=== PATIENT | male | born 1945 | race Caucasian/White ===

== ENCOUNTER 2021-12-31 12:03 | Emergency (ER) | payer OTHER, SELFPAY ==
[2021-12-31] VITALS (33 sets, daily range): BP systolic 127–168; BP diastolic 57–127; PULSE 65–111; RESP 11–29; TEMP 37; O2SAT 84–97
--- OUTSIDE RECORDS SUMMARY | 2021-12-31 12:54 | XMS_ITS | Encounter Summary ---
:1945 Author Organization [facility] [place] [address] Care Team Providers Name Role Phone Estefany Soriano MD Primary Care Provider [phone] Reason for Visit Reason Comments Establish Care XR IN SPLINT RT DISTAL RA D FX DOI 12/23/21 (REDUCED) Consultation (Urgent) - Closed Specialty Diagnoses / Procedures Referred By Contact Refer red To Contact Orthopaedics Diagnoses Right Distal Rad fx Doi 12/23/2021 (reduced) Jacinto Del Rio MD [facility] Orthopaedics 3a [facility] [place] [address] [place] [address] Referral ID Status Reason Start Date Expiration Date Visits Requ ested Visits Authorized [id number] Closed 12/24/2021 12/24/2022 1 1 Encounter Details Date Type Department Care Team Description 12/29/2021 Office Visit Orthopaedics at [facility] Rody Sheridan closed [facility] [address] [place] [address] end of right radius [phone] ORTHOPAEDIC with routine farideh [facility] SURGERY subsequent encounter [place] [id number] Social History Tobacco Use Types Packs/Day Years Used Date Former Smoker Quit: 1976 Smokeless Tobacco: Never Used Alcohol Use Standard Drinks/Week Comments Not Currently 0 (1 standard drink = 0.6 oz pure alcoho l) Sex Assigned at Date Recorded Not on file documented as of this encounter Last Filed Vital Signs Vital Sign Reading Time Taken Comments Blood Pressure 127/75 12/29/2021 2:31 PM EDT Pulse - - Temperature - - Respiratory Rate - - Oxygen Saturation - - Inhaled Oxygen Concentration - - Weight - - Height - - Body Mass Index - - documented in this encounter Progress Notes Jenifer Gomez RN - 12/29/2021 2:20 PM EDT Call out to Dr Soriano's office at the [place], in regards to patients unmanaged gout. reached unidentified vm and requested a call back Rody Sheridan PA - 12/29/2021 2:20 PM EDT PATIENT NAME: Shreyas Jorgensen AGE: 76 y.o. MR#: [id number] DATE OF VISIT: 12/29/2021 DATE OF INJURY/ONSET: 12/23/2021 STAFF: Dr. Chavez CHIEF COMPLAINT: Right wrist fracture HISTORY OF PRESENT ILLNESS: Mr. Jorgensen is a right hand dominant 76 y.o. male who comes into clinictoday for evaluation of the right wrist. He presents today in follow-up after being seen in the emergency department. He injured his right wrist after falling while putting on a jacket. He states he has a history of gout and is currently struggling with multiple other joint pains which he attributes to his gout. He is on allopurinol, but he is wondering if there are other medications he should be taking. He denies having any significant issues with his right wrist prior to this injury. He was found to have a distal radius fracture which was treated with closed reduction and splinting. He is taking T ylenol for pain. Medications and Allergies were reviewed in [facility]D-[facility] PAST MEDICAL HX: Past Medical History: Diagnosis Date ??? Atrial fibrillation ??? Gout ??? History of CVA (cerebrovascular accident) PAST SURGICAL HX: History reviewed. No pertinent surgical history. FAMILY HX: History reviewed. No pertinent family history. SOCIAL HX: Social History Occupational History ??? Not on file Tobacco Use ??? Smoking status: Former Smoker Quit date: 1976 Years since quittin.7 ??? Smokeless tobacco: Never Used Vaping Use ??? Vaping Use: Never used Substance and Sexual Activity ??? Alcohol use: Not Currently ??? Drug use: Never ??? Sexual activity: Not on file Ambulatory aids: 2 canes ROS: Pertinent items are noted in HPI. PHYSICAL EXAM: Mr. Jorgensen is a 76 y.o. male who is in no apparent distress, alert and cooperative. Inspection: Sugar-tong splint remains in place. There is moderate swelling into the fingers. Exposedskin remains intact ROM/Strength: He is able to flex and extend his fingers. There is some limited mobility due to his swelling. Neurovascular: He has intact sensation in his fingertips. Hand is well-perfused DIAGNOSTIC STUDIES: X-rays of the right wrist were personally reviewed. His right distal radius fracture alignment remains stable following his reduction. ASSESSMENT: 1 week following right distal radius fracture PLAN: I reviewed the x-rays with the patient today. His current fracture alignment remains stable. His sugar-tong splint appears to be fitting well. We will continue with immobilization in his sugar-tong splint for an additional 2 weeks. He will contact us if the splint becomes wet, tight or loose, orotherwise uncomfortable. He should continue with Tylenol as needed for pain. He can reach out to hisPCP to discuss management of his gout and we also discussed that we could place a referral to rheumatology if he would like to see a bead preparer instead. I also offered to place a referral for VNA services since he states he is having difficulty ambulating managing at home following his fracture. He feels that he is currently going okay with the help of his family, but if this changes he will contact us. We will schedule follow-up in approximately 2 weeks with x-rays and splint. If his fracture alignment remains stable we would consider transition to a fiberglass cast after his next visit. He will likely need approximately 6 weeks of immobilization total. If there is any loss of reduction we can discuss whether surgical repair would be of benefit. The patient understands to contact us if they have any other questions or concerns. The above documentation was completed using [employer] voice recognition software. documented in this encounter Plan of Treatment Upcoming Encounters Date Type Specialty Care Team Description 01/12/2022 Appointment Radiology Shorty Chavez MD [facility] [address] ORTHOPAEDIC SURG [place], [place] [address] (Wo rk) 01/12/2022 Office Visit Orthopaedics Rody Sheridan PA [facility] DR ORTHOPAEDIC SURG [place], [place] [address] (Wo rk) 01/12/2022 Office Visit Orthopaedics Scheduled Orders Name Type Priority Associated Diagnoses Order S chedule XR Wrist 3 Views Imaging Routine Other closed Expected: 0 12/29/2021 Right extra-articular fracture (Ap proximate), Expires: of distal end of right 06/30 radius with routine healing, subsequent encounter documented as of this encounter Visit Diagnoses Diagnosis Other closed extra-articular fracture of distal end of right radius with routine healing, subsequent encounter documented in this encounter Care Teams Electro Optical Engineer Relationship Specialty Start Date End Date Estefany Soriano MD PCP - General Internal Medicine 12/29/[address] [place] [id number] documented as of this encounter
--- OUTSIDE RECORDS SUMMARY | 2021-12-31 12:54 | XMS_ITS | Continuity of Care Document ---
:1945 Author Organization [facility] Care Team Providers Name Role Phone [facility] Unavailable Unavailable Problems Combined list of problems from Department of Defense and Veterans Affairs facilities. It does not include entries that were removed or entered in error. Problem Status Onset Problem Type Date of Comments Source Date Resolution Solitary nodule of Active 11/23/19 Condition Dec 17, WHITE lung [address] By: BRENDA NORTON Comment: R apical 4mm nodular pleural thickening seen CT scan [facility] 11/2020. Dec 17, 2020 Entered By: BRENDA BARRON Comment: at RTC will obtain smoking history. 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 Feb 22, WHITE (SNOMED CT 833321620) 2006 Ent ered [place] T By: JENNY POSADA Comment: in remission Anemia Inactive 04/24/19 Condition 01/21/2014 Feb 15, DM [address] By: JENNY POSADA Comment: colo 2002, Angiodysplasi a, Intestinal., plus hemorrhoids Dec 19, 2006 Entered By: JENNY GOMES Comment: resume fobt in 2007, fobt neg x 3 08/29 Benign essential Active 04/24/18 Condition WHI TE hypertension (SNOMED [address] 0019984) [facility] Adiposity (SNOMED CT Active Condition WHITE [id number]) [facility] Atrial fibrillation Active Condition WHITE [facility] Cerebral infarction Active Condition WHITE [facility] Depression * Active Condition WHITE (ICD-9-CM 300.4/311.) [facility] Gastroesophageal Active Condition September 07 ITE Reflux Disorder 2003 Entered [place] By: JENNY POSADA Comment: tx rabeprazole Gout Active Condition WHITE [facility] Headaches * (ICD-9-CM Active Condition WHITE 784.0) [facility] Health Maint Active Condition September 06, WHITE [address] [facility] Comment: 08 wants prostate cancer screening q 3 yrs. Nov 11, 2008 Entered By: JENNY GOMES Comment: 10/30 colo, +hemorroids, otherwise clear, next one 10 yrs. Oct 10, 2012 Entered By: JENNY GOMES Comment: 10/04 no AAA Hyperlipidemia Active Condition WHITE (SNOMED CT 65878687) [facility] Impotence Active Condition WHITE [facility] Long-term current use Active Condition WHITE of anticoagulant [place] [facility] Tobacco Use Disorder Inactive Condition 08/30/2013 Jan 22, WHITE [address] By: [facility] Comment: quit 2003 Diagnosis: ICD-10-CM Active Diagnosis ENRRIQUE Z71.89 Other [place] [facility] specified counselingwith Provider Comments: Counseling,Oth Specified Diagnosis: ICD-10-CM Active Diagnosis WHITE Z71.[address] specified [facility] counselingwith Provider Comments: Other specified counseling Diagnosis: ICD-10-CM Active Diagnosis WHITE S62.91XA Unsp [place] fracture of right [facility] wrist and hand, init for clos fxwith Provider Comments: Unspecified Fracture of right Wrist and Hand, Initial Encounter for closed Fracture Diagnosis: ICD-10-CM Active Diagnosis ENRRIQUE M10.9 Gout, [facility] unspecifiedwith Provider Comments: Gout (SCT 69088962) Diagnosis: ICD-10-CM Active Diagnosis ENRRIQUE Z23 Encounter for [facility] immunizationwith Provider Comments: Encounter for immunization (ICD-10-CM Z23.) Diagnosis: ICD-10-CM Active Diagnosis WHITE M79.673 Pain in [place] unspecified footwith [facility] Provider Comments: Pain in unspecified Foot Diagnosis: ICD-10-CM Active Diagnosis ENRRIQUE M10.9 Gout, [facility] unspecifiedwith Provider Comments: Gout (SNOMED CT 31215672) Diagnosis: ICD-10-CM Active Diagnosis WHITE 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.01 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 [place]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) use of [facility] JASPREET anticoagulantswith Provider Comments: Long-term current use of anticoagulant (SCT 629765628) Diagnosis: ICD-10-CM Active Diagnosis WHITE M10.062 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, left kneewith [facility] Provider Comments: Idiopathic Gout, left Knee Diagnosis: ICD-10-CM Active Diagnosis ENRRIQUE M10.9 Gout, [facility] unspecifiedwith Provider Comments: Gout, unspecified Diagnosis: ICD-10-CM Active Diagnosis WHITE I50.9 Heart failure, [place] unspecifiedwith [facility] Provider Comments: Heart Failure, unspecified Diagnosis: ICD-10-CM Active Diagnosis ENRRIQUE Z23 Encounter for [facility] immunizationwith Provider Comments: Encounter for Immunization Diagnosis: ICD-10-CM Active Diagnosis WHITE I48.91 Unspecified R [place] atrial [facility] fibrillationwith Provider Comments: Atrial fibrillation (SCT 69889200) Diagnosis: ICD-10-CM Active Diagnosis ENRRIQUE I48.91 Unspecified V [facility] CLINIC atrial fibrillationwith Provider Comments: Unspecified Atrial Fibrillation Diagnosis: ICD-10-CM Active Diagnosis WHITE I10 Essential [place] (primary) [facility] hypertensionwith Provider Comments: Benign essential hypertension (SCT 9501696) Medications Combined list of outpatient medications from Department of Defense and Veterans Affairs facilities. Medications provided include 1) outpatient medications from the last 15 months, and 2) patient-reported medications. Medication Details Route Status Patient Prescription Prescription Last Ordering Order Source Instructions Expires Number Dispense Provider Date Date ACETAMINOPH TAKE ONE ORAL ACTIVE 02/26/2022 [id number] H ENDERSON 02/25/ ENRRIQUE EN 500MG TABLET 2 -SEGURA,2020 [facility] EVERY SIX HOURS NEEDED FOR PAIN ACETAMINOPH TAKE ONE ORAL DISCONT 02/13/2021 [id number] LIZ 03/15/ DM EN 500MG TABLET INUE 1 JAYY 2020 [place] TAB BY MOUTH [place] EVERY [facility] SIX HOURS NEEDED FOR PAIN ALLOPURINOL TAKE TWO ORAL DISCONT 08/13/2022 [id number] H ENDERSON 08/14/ ENRRIQUE 100MG TAB TABLETS INUED 2 -2021 [facility] EVERY DAY FOR GOUT ALLOPURINOL TAKE ONE ORAL DISCONT 10/11/2021 [id number] H ENDERSON 07/16/ ENRRIQUE 100MG TAB TABLET INUED 2 -SEGURA,2021 [facility] EVERY DAY FOR GOUT ALLOPURINOL TAKE ONE ORAL ACTIVE 09/17/2022 [id number] DESHAWN RSON 09/16/ ENRRIQUE 300MG TAB TABLET 2 -VIVIANA SEGURA 2021 [facility] EVERY DAY FOR GOUT AMLODIPINE TAKE ONE ORAL ACTIVE 04/20/2022 [id number] THAIV EETT 05/23/ WHITE BESYLATE TABLET 2 ALYCE,ZACHARY 2021 RIVER 10MG TAB BY MOUTH G JCT EVERY [facility] DAY FOR BLOOD PRESSURE /HEART, DO NOT TAKE WITH GRAPEFRU IT JUICE AMLODIPINE TAKE ONE ORAL DISCONT 07/31/2021 [id number] S ULDEBI, 08/24/ WHITE BESYLATE TABLET INUE 1 [place] 2020 [place] 10MG TAB BY MOUTH M JCT EVERY [facility] DAY FOR BLOOD PRESSURE /HEART, DO NOT TAKE WITH GRAPEFRU IT JUICE APIXABAN TAKE ONE ORAL ACTIVE 07/09/2022 [id number] Karen ALLEN 08/15/ WHITE 5MG TAB TABLET 2 ENEL L 2021 [place] BY MOUTH J[place] EVERY [facility] TWELVE HOURS TO HELP PREVENT BLOOD CLOTS (ANTICOA GULATION ) APIXABAN TAKE ONE ORAL DISCONT 12/26/2021 [id number] GLENNA VALLEJO 02/15/ ENRRIQUE 5MG TAB TABLET INUED 2 [facility] 2020 [facility] EVERY TWELVE HOURS TO HELP PREVENT BLOOD CLOTS (ANTICOA GULATION ) APIXABAN TAKE ONE ORAL DISCONT 05/09/2021 [id number] BROWN GLENNA 05/08/ WHITE 5MG TAB TABLET INUE 1 [facility] 2020 [place] BY MOUTH [place] EVERY [facility] TWELVE HOURS TO HELP PREVENT BLOOD CLOTS (ANTICOA GULATION ) ASPIRIN TAKE ONE ORAL 10/31/2021 [id number] VOODILON P 11/02/ WHITE 81MG TAB,EC TABLET 2 2020 [place] BY MOUTH JCT EVERY [facility] DAY TO PREVENT STROKE/H EART ATTACK OR FOR PAIN/SWE LLING/IN FLAMMATI ON ATORVASTATI TAKE ONE ORAL ACTIVE 04/20/2022 [id number] T NORMA 05/07/ WHITE N CA 80MG TABLET 2 [place],ZACHARY 2021 [place] TAB BY MOUTH G JCT EVERY [facility] DAY TO LOWER CHOLESTE ROL ATORVASTATI TAKE ONE ORAL DISCONT 10/14/2021 [id number] THAIVEETT 11/02/ WHITE N CA 80MG TABLET INUE 1 ZACHARY MEAD 2020 [place] TAB BY MOUTH G JCT EVERY [facility] DAY TO LOWER CHOLESTE ROL CAPSAICIN APPLY TOPICA ACTIVE WUNDERLIC WHI TE 0.1% SMALL LLY HCRIS 2016 RIVER CREAM,TOP AMOUNT R JCT TOPICALL [facility] Y TWICE DAILY NEEDED CELECOXIB TAKE ONE ORAL DISCONT 10/10/2021 [id number] FLEISH MAN 09/10/ WHITE 100MG CAP CAPSULE INUED 2 ,MARIO 2021 RIVE R BY MOUTH SEJAL JCT TWICE A [facility] DAY FOR ARTHRITI S COLCHICINE TAKE ONE ORAL DISCONT 05/21/2022 [id number] HENDE RSON 05/20/ ENRRIQUE 0.6MG TAB TABLET INUED 2 -SEGURA,VIVIANA 2021 [facility] EVERY DAY FOR GOUT COLCHICINE TAKE ONE ORAL DISCONT 11/20/2021 [id number] VO,AN N P 11/24/ WHITE 0.6MG TAB TABLET INUED 1 2020 [place] BY MOUTH [place] DAILY [facility] FOR GOUT COLCHICINE TAKE ONE ORAL DISCONT 04/28/2021 [id number] SULLI VAN, 04/27/ WHITE 0.6MG TAB TABLET INUE 1 JAYY 2020 [place] BY MOUTH M JCT EVERY [facility] DAY FOR GOUT COLCHICINE TAKE ONE ORAL 11/14/2021 [id number] HENDE RSON 10/15/ ENRRIQUE 0.6MG TAB TABLET 2 -SEGURA,VIVIANA 2021 [facility] EVERY DAY FOR GOUT COLCHICINE TAKE ONE ORAL 10/11/2021 [id number] HENDE RSON 08/14/ ENRRIQUE 0.6MG TAB TABLET 2 -SEGURA,VIVIANA 2021 [facility] EVERY DAY FOR GOUT DICLOFENAC APPLY 2 TOPICA 10/31/2021 [id number] VO ,ODILON P 11/02/ WHITE NA 1% GRAMS TO LLY 1 2020 [place] GEL,TOP UPPER JCT EXTREMIT [facility] IES TOPICALL Y FOUR TIMES DAILY NEEDED FOR PAIN/INF LAMMATIO N. *DO NOT EXCEED 16 GRAMS DAILY TO ANY JOINT OF LOWER EXTREMIT IES. DO NOT EXCEED 8 GRAMS DAILY TO ANY JOINT OF UPPER EXTREMIT IES. DO NOT EXCEED TOTAL DOSE OF 32 GRAMS DAILY OVER ALL JOINTS. FOLIC ACID TAKE ONE ORAL ACTIVE 08/03/2022 [id number] HENDE RSON 08/04/ ENRRIQUE 1MG TAB TABLET 2 -2021 [facility] EVERY DAY VITAMIN/ NUTRITIO N SUPPLEME NT FOLIC ACID TAKE ONE ORAL DISCONT 07/31/2021 [id number] SULDERRICK LEHMAN 08/02/ WHITE 1MG TAB TABLET INUED 2 [place] 2020 [place] BY MOUTH M JCT EVERY [facility] DAY VITAMIN/ NUTRITIO N SUPPLEME NT FUROSEMIDE TAKE ONE ORAL ACTIVE 04/20/2022 [id number] THAIV EETT 04/19/ WHITE 40MG TAB TABLET 2 PRZACHARY 2020 [place] BY MOUTH G JCT TWICE A [facility] DAY TO REMOVE FLUID/CO NTROL BLOOD PRESSURE FUROSEMIDE TAKE ONE ORAL DISCONT 04/28/2021 [id number] SULDERRICK LEHMAN, 04/27/ WHITE 40MG TAB TABLET INUE 1 [place] 2020 [place] BY MOUTH M JCT TWICE A [facility] DAY TO REMOVE FLUID/CO NTROL BLOOD PRESSURE ISOSORBIDE TAKE ONE ORAL ACTIVE 04/20/2022 [id number] THAIV EETT 06/09/ WHITE [facility] R[facility] 30MG TAB,SA BY MOUTH G JCT EVERY [facility] DAY TO PREVENT ANGINA ISOSORBIDE TAKE ONE ORAL DISCONT 03/17/2022 [id number] H ENDERSON 03/21/ ENRRIQUE MONONITRATE TABLET INUE 1 -2020 [facility] 30MG TAB,SA BY MOUTH [facility]INI EVERY DAY TO PREVENT ANGINA ISOSORBIDE TAKE ONE ORAL DISCONT 02/13/2021 [id number] SULLI DOMINIK, 02/12/ WHITE MONONITRATE TABLET INUE 1 JAYY 2019 RIVE R 30MG TAB,SA BY MOUTH M JCT EVERY [facility] DAY TO PREVENT ANGINA METOPROLOL TAKE ONE ORAL ACTIVE 04/20/2022 [id number] THAIV EETT 05/01/ WHITE SUCCINATE TABLET 2 ZACHARY ME[place] 2021 R[place] 200MG BY MOUTH G JCT TAB,SA EVERY [facility] DAY FOR BLOOD PRESSURE /HEART METOPROLOL TAKE ONE ORAL DISCONT 10/14/2021 [id number] T HAIVEETT 11/12/ WHITE SUCCINATE TABLET INUE 1 ZACHARY MEAD 2020 [place] 200MG BY MOUTH G JCT TAB,SA EVERY [facility] DAY FOR BLOOD PRESSURE /HEART OMEPRAZOLE TAKE ONE ORAL ACTIVE 03/17/2022 [id number] HENDE RSON 03/21/ ENRRIQUE 20MG CAP,EC CAPSULE 2 -2020 [facility] TWICE A DAY FOR STOMACH ACID (TAKE HALF-MICHAEL R BEFORE A MEAL(S) OMEPRAZOLE TAKE ONE ORAL DISCONT 02/13/2021 [id number] SULDERRICK LEHMAN, 02/12/ WHITE 20MG CAP,EC CAPSULE INUE 1 JAYY 2019 [place] BY MOUTH M JCT TWICE A [facility] DAY FOR STOMACH ACID (TAKE HALF-MICHAEL R BEFORE A MEAL(S) POTASSIUM TAKE TWO ORAL ACTIVE 04/20/2022 [id number] THAIVE ETT 04/19/ WHITE CHLORIDE TABLETS 2 PRZACHARY 2020 [place] 10MEQ BY MOUTH G JCT TAB,SA EVERY [facility] DAY TO SUPPLEME NT POTASSIU M POTASSIUM TAKE TWO ORAL DISCONT 10/14/2021 [id number] THAIV EETT 12/17/ WHITE CHLORIDE TABLETS INUE 1 ZACHARY MEAD 2020 [place] 10MEQ BY MOUTH G JCT TAB,SA EVERY [facility] DAY TO SUPPLEME NT POTASSIU M PREDNISONE TAKE TWO ORAL DISCONT 11/25/2021 [id number] HENDE RSON 10/26/ ENRRIQUE 20MG TAB TABLETS INUED 2 -2021 [facility] EVERY DAY SHORT COURSE FOR GOUT FLARE ONLY PREDNISONE TAKE TWO ORAL 12/11/2021 [id number] H ENDERSON 11/12/ ENRRIQUE 20MG TAB TABLETS 2 -SEGURA2021 [facility] EVERY DAY SHORT COURSE FOR GOUT FLARE ONLY PREDNISONE TAKE ORAL DISCONT 07/21/2021 [id number] Karen CHASE 06/21/ WHITE 5MG TAB EIGHT INUE 2 ONATHAN B 2021 [place] TABLETS JCT BY MOUTH [facility] DAILY FOR 5 DAYS, THEN TAKE FOUR TABLETS DAILY FOR 2 DAYS, THEN TAKE TWO TABLETS DAILY FOR 2 DAYS, THEN TAKE ONE TABLET DAILY FOR 2 DAYS PREDNISONE TAKE ORAL 07/24/2021 [id number] ANGEL,P E 06/26/ WHITE 5MG TAB TABLETS 2 TER 2021 [place] BY MOUTH RA JCT [facility] DIRECTED : TAKE EIGHT TABLETS BY MOUTH DAILY FOR 5 DAYS, THEN TAKE FOUR TABLETS DAILY FOR 2 DAYS, THEN TAKE TWO TABLETS DAILY FOR 2 DAYS, THEN TAKE ONE TABLET DAILY FOR 2 DAYS TAKE EIGHT TABLETS BY MOUTH DAILY FOR 5 DAYS, THEN TAKE FOUR TABLETS DAILY FOR 2 DAYS, THEN TAKE TWO TABLETS DAILY FOR 2 DAYS, THEN TAKE ONE TABLET DAILY FOR 2 DAYS Immunizations Combined list of available immunizations from the Department of Defense and Veterans Affairs facilities. 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 COVID-19 2 complet MOD; NE WPORT (MODERNA), 2021 ed [id number] [facility] MRNA, LNP-S, ; C RAMSEY PF, 100 MCG/0.5ML 2 DOSE OR 50 MCG/0.25ML DOSE INFLUENZA complet N EWPORT VACCINE, 2020 ed [facility] QUADRIVALENT, CLINIC ADJUVANTED TDAP complet [place] [facility] ed [facility] COVID-19 1 complet ITE (ABIOLA), 2020 ed [place] VECTOR-NR, JCT RS-AD26, PF, V [facility] 0.5 ML INFLUENZA, complet ENRRIQUE INJECTABLE, 2019 ed [facility] QUADRIVALENT, CLINIC PRESERVATIVE FREE INFLUENZA, complet Site: WHITE INJECTABLE, 2018 ed Right RI GURPREET QUADRIVALENT, [place] PRESERVATIVE [facility] FREE ZOSTER 2 complet NEWP ORT RECOMBINANT 2018 ed [place] [facility] PNEUMOCOCCAL complet ENRRIQUE POLYSACCHARID 2018 ed [facility] E PPV23 CLINIC INFLUENZA, complet patien t DM , 2017 ed randomize RIVER INJECTABLE d to JCT either [facility] quadrival ent standard dose or trivalent high dose influenza vaccine ZOSTER 2 complet NEWP ORT RECOMBINANT 2017 ed [facility] PNEUMOCOCCAL complet ENRRIQUE CONJUGATE PCV 2016 ed [facility] 13 CLINIC INFLUENZA, complet newpor t WHITE , 2016 ed cboc RIVE R INJECTABLE JCT [facility] INFLUENZA, complet as per DM , 2016 ed RI GURPREET INJECTABLE JCT [facility] INFLUENZA, complet Site: WHITE UNSPECIFIED 2015 ed Right [place] GURPREET FORMULATION [place] [facility] INFLUENZA, complet Site: WHITE UNSPECIFIED 2014 ed Right [place] GURPREET FORMULATION [place] [facility] ZOSTER LIVE complet Proxi mal DM 2014 ed Left Arm [place] [facility] PNEUMOCOCCAL complet on f ile ENRRIQUE POLYSACCHARID 2014 ed VA E PPV23 CLINIC INFLUENZA, complet WHITE UNSPECIFIED 2013 ed [place] GURPREET FORMULATION LUCIA T [facility] INFLUENZA, complet Site: WHITE UNSPECIFIED 2013 ed Right [place] GURPREET FORMULATION [place] [facility] INFLUENZA, complet WHITE UNSPECIFIED 2012 ed RI GURPREET FORMULATION LUCIA T [facility] INFLUENZA, complet Site: WHITE UNSPECIFIED 2012 ed Right [place] GURPREET FORMULATION [place] [facility] INFLUENZA, complet Site: WHITE UNSPECIFIED 2011 ed Left [place] GURPREET FORMULATION [place] [facility] INFLUENZA, complet Site: WHITE UNSPECIFIED 2010 ed Left [place] GURPREET FORMULATION [place] [facility] PNEUMOCOCCAL, complet Sit e: WHITE UNSPECIFIED 2010 ed Left [place] GURPREET FORMULATION [place] [facility] TDAP complet Site: WHITE 2010 ed Right [place] [facility] INFLUENZA, complet Site: WHITE UNSPECIFIED 2009 ed Left [place] GURPREET FORMULATION [place] [facility] NOVEL complet [employer] WHIT E INFLUENZA-H1N 2009 ed Pasteu r RIVER 1-09, ALL JCT FORMULATIONS V [facility] INFLUENZA, 02/25/ HAYLEEJENNY Mederos complet WHITE UNSPECIFIED 2008 ed RI GURPREET FORMULATION LUCIA T [facility] PNEUMOCOCCAL, complet Sit e: WHITE UNSPECIFIED 2008 ed Right [place] GURPREET FORMULATION [place] [facility] INFLUENZA, complet WHITE UNSPECIFIED 2007 ed RI GURPREET FORMULATION LUCIA T [facility] INFLUENZA, complet WHITE UNSPECIFIED 2007 ed RI GURPREET FORMULATION LUCIA T [facility] INFLUENZA, complet WHITE UNSPECIFIED 2006 ed [place] GURPREET FORMULATION LUCIA T [facility] TD(ADULT) 09/28/ 139 complet .5ml R WHITE UNSPECIFIED 2005 ed deltiod. RIVER FORMULATION Lot#[id number] JCT 0A [facility] exp: INFLUENZA, complet WHITE UNSPECIFIED 2004 ed RI GURPREET FORMULATION LUCIA T [facility] INFLUENZA, complet WHITE UNSPECIFIED 2001 ed RI GURPREET FORMULATION LUCIA T [facility] INFLUENZA, 03/14/ CASTLE,ANDR 88 comple t WHITE UNSPECIFIED 2000 EA A ed RI GURPREET FORMULATION LUCIA T [facility] PNEUMOCOCCAL, complet Sit e:Righ WHITE UNSPECIFIED 2000 ed t [place] FORMULATION LUCIA T [facility] FLU* 02/18/ KATCHEN,H 88 complet W MARY (HISTORICAL) 1997 [facility] [place] [facility] DT 04/04/ KATCHEN,H 28 complet W MARY (PEDIATRIC) 1996 [facility] [place] [facility] FLU* 04/04/ KATCHEN,H 88 complet W MARY (HISTORICAL) 1996 [facility] [place] [facility] Results Combined list of recent chemistry, hematology and other laboratory results from Department of Defense and Veterans Affairs, ranging from 15 months to all on record, depending upon the facility. Order Results Value Reference Date Interpretation Specimen Commen ts Source Name Range PHOSPHORU PHOSPHATE 3.4 2.5 - 5.0 10/21 Specimen T ype: PLASMA ENRRIQUE S [MASS/VOLU /2021 Comment: Adriana ts performed on [employer] (788) SN:[id number] [place]] IN Ordering Provid er: BRENDA SANCHEZ [facility] SERUM OR Report Release d Date/Time: Aug 12, 2021 01:20 PM PLASMA Reporting Lab: [facility] [address] [facility] [address] Performing Lab: [facility] [address] [facility] [address] URIC ACID URATE 5.6 3.3 - 8.7 10/21 Specimen Typ e: PLASMA ENRRIQUE [MASS/VOLU /2021 Comment: Adriana ts performed on [employer] (405) SN:[id number] [facility]] IN Ordering Provid er: [facility] SERUM OR Report Release d Date/Time: Aug 12, 2021 01:20 PM PLASMA Reporting Lab: [facility] [address] [facility] [address] Performing Lab: [facility] [address] [facility] [address] P4 UREA 29 7 - 25 10/21 H Specimen Type: P LASMA ENRRIQUE GLU,BUN,C /2021 Comment: Adriana ts performed on [employer] (405) SN:[id number] [place] REAT,LYTE [MASS/VOLU Ordering P rovider: [facility] S,[place]] IN Report Released Date/Time: Aug 12, 2021 01:20 PM SERUM OR Reporting Lab: [facility] PLASMA [address] [facility] [address] Performing Lab: [facility] [address] [place] [facility] [place] [address] P4 SODIUM 138 135 - 145 10/21 Specimen Type: PLASMA ENRRIQUE GLU,BUN,C [MOLES/VOL /2021 Comment: T ests performed on [employer] (405) SN:[id number] VA REAT,LYTE UME] IN Ordering Prov ider: [facility] S,CA SERUM OR Report Release d Date/Time: Aug 12, 2021 01:20 PM PLASMA Reporting Lab: [facility] [address] [place] [facility] [place] [place] [place] [address] Performing Lab: [facility] [address] [facility] [address] P4 POTASSIUM 4.1 3.5 - 5.0 10/21 Specimen Typ e: PLASMA ENRRIQUE GLU,BUN,C [MOLES/VOL /2021 Comment: T ests performed on [employer] (405) SN:[id number] VA REAT,LYTE UME] IN Ordering Prov ider: [facility] S,CA SERUM OR Report Release d Date/Time: Aug 12, 2021 01:20 PM PLASMA Reporting Lab: [facility] [address] [facility] [address] Performing Lab: [facility] [address] [facility] [address] P4 CHLORIDE 100 100 - 110 06 Specimen Type : PLASMA ENRRIQUE GLU,BUN,C [MOLES/VOL /2021 Comment: T ests performed on [employer] (405) SN:[id number] VA REAT,LYTE UME] IN Ordering Prov ider: [facility] S,CA SERUM OR Report Release d Date/Time: Aug 12, 2021 01:20 PM PLASMA Reporting Lab: [facility] [address] [facility] [address] Performing Lab: [facility] [address] [facility] [address] P4 CARBON 26 20 - 30 10/21 Specimen Type: P LASMA ENRRIQUE GLU,BUN,C DIOXIDE, /2021 Comment: Adriana ts performed on [employer] (405) SN:[id number] VA REAT,LYTE TOTAL Ordering Prov ider: [facility] S,CA [MOLES/VOL Report Relea sed Date/Time: Aug 12, 2021 01:20 PM UME] IN Reporting Lab: [facility] SERUM OR [address] [facility] [address] PLASMA Performing Lab: [facility] [address] [facility] [address] P4 ANION GAP 12 4 - 16 10/21 Specimen Type: PLASMA ENRRIQUE GLU,BUN,C IN SERUM /2021 Comment: Adriana ts performed on [employer] (405) SN:[id number] VA REAT,LYTE OR PLASMA Ordering Pr ovider: [facility] S,CA Report Released Date/Time: Aug 12, 2021 01:20 PM Reporting Lab: [facility] [address] [place] [facility] [place] [place] [place] [address] Performing Lab: [facility] [address] [place] [facility] [place] [place] [address] P4 GLUCOSE 107 65 - 100 06/30 H Specimen Type: PLASMA ENRRIQUE GLU,BUN,C [MASS/VOLU /2021 Comment: T ests performed on [employer] (405) SN:[id number] FRANCISCO GIBBS HI] IN Ordering Prov ider: [facility] S,CA SERUM OR Report Release d Date/Time: Aug 12, 2021 01:20 PM PLASMA Reporting Lab: [facility] [address] [facility] [address] Performing [facility]: [facility] [address] [facility] [address] P4 CREATININE 1.29 0.5 - 1.5 10/21 Specimen Ty pe: PLASMA ENRRIQUE GLU,BUN,C [MASS/VOLU /2021 Comment: T ests performed on [employer] (405) SN:[id number] FRANCISCO GIBBS HI] IN Ordering Prov ider: [facility] S,CA SERUM OR Report Release d Date/Time: Aug 12, 2021 01:20 PM PLASMA Reporting Lab: [facility] [address] [facility] [address] Performing Lab: [facility] [address] [facility] [address] P4 CALCIUM 8.6 8.5 - 10.5 10/21 Specimen Type : PLASMA ENRRIQUE GLU,BUN,C [MASS/VOLU /2021 Comment: T ests performed on [employer] (405) SN:[id number] FRANCISCO GIBBS HI] IN Ordering Prov ider: [facility] S,CA SERUM OR Report Release d Date/Time: Aug 12, 2021 01:20 PM PLASMA Reporting Lab: [facility] [address] [place] [facility] [place] [address] Performing Lab: [facility] [address] [facility] [address] P4 eGFR(CKD-E 58 60 10/21 L Specimen Type : PLASMA ENRRIQUE GLU,BUN,C PI 2020) /2021 Comment: Adriana ts performed on [employer] (405) SN:[id number] FRANCISCO GIBBS Ordering Prov ider: [facility],CA Report Released Date/Time: Aug 12, 2021 01:20 PM Reporting Lab: [facility] [address] [facility] [place] [address] Performing Lab: [place] [facility] [address] [facility] [place] [address] URINALYSI COLOR OF Yellow 09/10 Specimen Type : URINE WHITE S URINE /2021 No comment enter ed. RIVER W/REFLEX Ordering Provi rosendo: MARIO SANCHEZ TO Report Released Date/Time: September 10, 2021 12:10 PM [facility] CULTURE Reporting Lab: [facility] [address] [facility] [place] [address] Performing Lab: [facility] [address] [facility] [place] [address] URINALYSI SPECIFIC 1.018 1.003 - 09/10 Specimen Type : URINE WHITE S GRAVITY OF 1.030 /2021 No comment en tered. RIVER W/REFLEX URINE BY Ordering Prov ider: MARIO SANCHEZ TO REFRACTOME Report Relea sed Date/Time: September 10, 2021 12:10 PM [facility] CULTURE TRY Reporting Lab: [facility] [address] [facility] [place] [address] Performing Lab: [facility] [address] [place] [facility] [place] [place] [address] URINALYSI UROBILINOG <2.0 <2.0 - 2.0 09/10 Specimen Type: URINE WHITE S EN /2021 No comment enter ed. RIVER W/REFLEX [MASS/VOLU Ordering Pr ovider: MARIO SANCHEZ TO ME] IN Report Released Date/Time: September 10, 2021 12:10 PM [facility] CULTURE URINE Reporting Lab: [facility] [address] [facility] [place] [address] Performing Lab: [facility] [address] [place] [facility] [place] [address] URINALYSI BILIRUBIN. NEG 09/10 Specimen Ty pe: URINE WHITE S TOTAL /2021 No comment enter ed. RIVER W/REFLEX [PRESENCE] Ordering Pr ovider: MARIO SANCHEZ TO IN URINE Report Release d Date/Time: September 10, 2021 12:10 PM [facility] CULTURE BY TEST Reporting Lab: [facility] STRIP [address] [place] [address] Performing Lab: [facility] [address] [place] [facility] [place] [facility] [place] [address] URINALYSI KETONES NEG 09/10 Specimen Type: URINE WHITE S [PRESENCE] /2021 No comment en tered. RIVER W/REFLEX IN URINE Ordering Prov ider: MARIO SANCHEZT TO Report Released Date/Time: September 10, 2021 12:10 PM [facility] CULTURE Reporting Lab: [facility] [address] [facility] [address] Performing Lab: [facility] [address] [facility] [place] [address] URINALYSI GLUCOSE NEG 09/10 Specimen Type: URINE WHITE S [MASS/VOLU /2021 No comment en tered. RIVER W/REFLEX ME] IN Ordering Provi rosendo: MARIO SANCHEZT TO URINE BY Report Release d Date/Time: September 10, 2021 12:10 PM [facility] CULTURE TEST STRIP Reporting La b: [facility] [address] [facility] [place] [address] Performing Lab: [facility] [address] [place] [facility] [place] [facility] [place] [address] URINALYSI PROTEIN 100 09/10 Specimen Type: URINE WHITE S [MASS/VOLU /2021 No comment en tered. RIVER W/REFLEX ME] IN Ordering Provi rosendo: MARIO SANCHEZT TO URINE BY Report Release d Date/Time: September 10, 2021 12:10 PM [facility] CULTURE TEST STRIP Reporting La b: [facility] [address] [facility] [place] [address] Performing Lab: [facility] [address] [facility] [place] [address] URINALYSI PH OF 5.0 5 - 8 09/10 Specimen Type: URINE WHITE S URINE BY /2021 No comment ente red. RIVER W/REFLEX TEST STRIP Ordering Pr ovider: MARIO SANCHEZT TO Report Released Date/Time: September 10, 2021 12:10 PM [facility] CULTURE Reporting Lab: [facility] [address] [facility] [place] [place] [address] Performing Lab: [facility] [address] [facility] [place] [address] URINALYSI HYALINE 18 0 - 2 05/20 H Specimen Type: URINE WHITE S CASTS /2021 No comment enter ed. RIVER W/REFLEX [#/AREA] Ordering Prov ider: MARIO SANCHEZT TO IN URINE Report Release d Date/Time: September 10, 2021 12:10 PM [facility] CULTURE SEDIMENT Reporting Lab: [facility] BY [address] [facility] [place] [address] MICROSCOPY Performing L ab: [facility] LOW POWER [address] [place] [facility] [place] [address] FIELD URINALYSI GRANULAR 2 09/10 Specimen Type : URINE WHITE S CASTS /2021 No comment enter ed. RIVER W/REFLEX [#/AREA] Ordering Prov ider: MARIO SANCHEZT TO IN URINE Report Release d Date/Time: September 10, 2021 12:10 PM [facility] CULTURE SEDIMENT Reporting Lab: [facility] BY [address] [facility] [place] [address] MICROSCOPY Performing L ab: [facility] LOW POWER [address] [place] [facility] [place] [address] FIELD URINALYSI ERYTHROCYT 1 0 - 3 09/10 Specimen Ty pe: URINE WHITE S ES /2021 No comment enter ed. RIVER W/REFLEX [#/AREA] Ordering Prov ider: MARIO SANCHEZT TO IN URINE Report Release d Date/Time: September 10, 2021 12:10 PM [facility] CULTURE SEDIMENT Reporting Lab: [facility] BY [address] [facility] [place] [address] MICROSCOPY Performing L ab: [facility] HIGH POWER [address] [place] [facility] [place] [address] FIELD URINALYSI APPEARANCE CLEAR 09/10 Specimen Ty pe: URINE WHITE S OF URINE /2021 No comment ente red. RIVER W/REFLEX Ordering Provi rosendo: MARIO SANCHEZT TO Report Released Date/Time: September 10, 2021 12:10 PM [facility] CULTURE Reporting Lab: [facility] [address] [facility] [place] [address] Performing Lab: [facility] [address] [place] [facility] [place] [address] URINALYSI SPERMATOZO RARE 09/10 Specimen Ty pe: URINE WHITE S A No comment enter ed. RIVER W/REFLEX [#/VOLUME] Ordering Pr ovider: MARIO SANCHEZ TO IN URINE Report Release d Date/Time: September 10, 2021 12:10 PM [facility] CULTURE BY Reporting Lab: [facility] AUTOMATED [address] [facility] [address] COUNT Performing Lab: [facility] [address] [facility] [address] URINALYSI HEMOGLOBIN NEG 09/10 Specimen Ty pe: URINE WHITE S [PRESENCE] /2021 No comment en tered. RIVER W/REFLEX IN URINE Ordering Prov ider: MARIO SANCHEZT TO Report Released Date/Time: September 10, 2021 12:10 PM [facility] CULTURE Reporting Lab: [facility] [address] [facility] [address] Performing Lab: [facility] [address] [facility] [address] URINALYSI NITRITE NEG 09/10 Specimen Type: URINE WHITE S [PRESENCE] /2021 No comment en tered. RIVER W/REFLEX IN URINE Ordering Prov ider: MARIO SANCHEZ TO BY TEST Report Released Date/Time: September 10, 2021 12:10 PM [facility] CULTURE STRIP Reporting Lab: [facility] [address] [facility] [address] Performing Lab: [facility] [address] [place] [facility] [place] [place] [address] URINALYSI LEUKOCYTES NEG 09/10 Specimen Ty pe: URINE WHITE S [PRESENCE] /2021 No comment en tered. RIVER W/REFLEX IN URINE Ordering Prov ider: MARIO SANCHEZ TO Report Released Date/Time: September 10, 2021 12:10 PM [facility] CULTURE Reporting Lab: [facility] [address] [facility] [address] Performing Lab: [facility] [address] [facility] [address] CRP(INFLA C REACTIVE 68.2 0 - 5.0 05/ H Specimen Ty pe: PLASMA WHITE MMATORY) PROTEIN /2021 Comment: Tests performed on [employer] (405) SN:[id number] RIVER [MASS/VOLU Ordering Pro vider: MARIO SANCHEZ ME] IN Report Released Date/Time: September 10, 2021 12:10 PM [facility] SERUM OR Reporting Lab: [facility] PLASMA [address] [facility] [address] Performing Lab: [facility] [address] [facility] [address] URIC ACID URATE 6.3 3.3 - 8.7 09/10 Specimen Typ e: PLASMA WHITE [MASS/VOLU /2021 Comment: Adriana ts performed on [employer] (405) SN:[id number] RIVER HI] IN Ordering Provid er: MARIO SANCHEZ SERUM OR Report Release d Date/Time: September 10, 2021 12:10 PM [facility] PLASMA Reporting Lab: [facility] [address] [facility] [address] Performing Lab: [facility] [address] [place] [facility] [place] [address] P4 UREA 17 7 - 25 09/10 Specimen Type: P LASMA WHITE GLU,BUN,C NITROGEN /2021 Comment: Adriana ts performed on [employer] (405) SN:[id number] RIVER REAT,LYTE [MASS/VOLU Ordering P rovider: MARIO SANCHEZ S,CA ME] IN Report Released Date/Time: September 10, 2021 12:10 PM [facility] SERUM OR Reporting Lab: [facility] PLASMA [address] [place] [facility] [place] [address] Performing Lab: [facility] [address] [facility] [address] P4 SODIUM 138 135 - 145 09/10 Specimen Type: PLASMA WHITE GLU,BUN,C [MOLES/VOL /2021 Comment: T ests performed on [employer] (405) SN:[id number] RIVER REAT,LYTE UME] IN Ordering Prov ider: MARIO SANCHEZ S,CA SERUM OR Report Release d Date/Time: September 10, 2021 12:10 PM [facility] PLASMA Reporting Lab: [facility] [address] [place] [facility] [place] [place] [place] [address] Performing Lab: [facility] [address] [facility] [address] P4 POTASSIUM 3.8 3.5 - 5.0 09/10 Specimen Typ e: PLASMA WHITE GLU,BUN,C [MOLES/VOL /2021 Comment: T ests performed on [employer] (405) SN:[id number] RIVER REAT,LYTE UME] IN Ordering Prov ider: MARIO SANCHEZT S,CA SERUM OR Report Release d Date/Time: September 10, 2021 12:10 PM [facility] PLASMA Reporting Lab: [facility] [address] [facility] [address] Performing Lab: [facility] [address] [facility] [address] P4 CHLORIDE 102 100 - 110 09/10 Specimen Type : PLASMA WHITE GLU,BUN,C [MOLES/VOL /2021 Comment: T ests performed on [employer] (405) SN:[id number] RIVER REAT,LYTE UME] IN Ordering Prov ider: MARIO SANCHEZT S,CA SERUM OR Report Release d Date/Time: September 10, 2021 12:10 PM [facility] PLASMA Reporting Lab: [facility] [address] [facility] [address] Performing Lab: [facility] [address] [facility] [address] P4 CARBON 22 20 - 30 09/10 Specimen Type: P LASMA WHITE GLU,BUN,C DIOXIDE, /2021 Comment: Adriana ts performed on [employer] (405) SN:[id number] RIVER REAT,LYTE TOTAL Ordering Prov ider: MARIO SANCHEZT S,CA [MOLES/VOL Report Relea sed Date/Time: September 10, 2021 12:10 PM [facility] UME] IN Reporting Lab: [facility] SERUM OR [address] [place] [facility] [place] [place] [address] PLASMA Performing Lab: [facility] [address] [place] [facility] [place] [address] P4 ANION GAP 14 4 - 16 09/10 Specimen Type: PLASMA WHITE GLU,BUN,C IN SERUM /2021 Comment: Adriana ts performed on [employer] (405) SN:[id number] RIVER REAT,LYTE OR PLASMA Ordering Pr ovider: MARIO SANCHEZ CA Report Released Date/Time: September 10, 2021 12:10 PM [facility] Reporting Lab: [facility] [address] [facility] [address] [facility]: [facility] [address] [facility] [address] P4 GLUCOSE 130 65 - 100 05/20 H Specimen Type: PLASMA WHITE GLU,BUN,C [MASS/VOLU /2021 Comment: T ests performed on [employer] (405) SN:[id number] RIVER REAT,LYTE ME] IN Ordering Prov ider: MARIO SANCHEZ CA SERUM OR Report Release d Date/Time: September 10, 2021 12:10 PM [facility] PLASMA Reporting Lab: DM [facility] [address] [facility] [address] [facility]: [facility] [address] [facility] [address] P4 CREATININE 1.25 0.5 - 1.5 09/10 Specimen Ty pe: PLASMA WHITE GLU,BUN,C [MASS/VOLU /2021 Comment: T ests performed on [employer] (405) SN:[id number] RIVER REAT,LYTE ME] IN Ordering Prov ider: MARIO SANCHEZ CA SERUM OR Report Release d Date/Time: September 10, 2021 12:10 PM [facility] PLASMA Reporting Lab: [facility] [address] [place] [facility] [place] [place] [address] Performing Lab: [facility] [address] [facility] [address] P4 CALCIUM 8.2 8.5 - 10.5 05/20 L Specimen Type : PLASMA WHITE GLU,BUN,C [MASS/VOLU /2021 Comment: T ests performed on [employer] (405) SN:[id number] RIVER REAT,LYTE ME] IN Ordering Prov ider: MARIO SANCHEZ CA SERUM OR Report Release d Date/Time: September 10, 2021 12:10 PM [facility] PLASMA Reporting Lab: [facility] [place] [facility] [address] [facility] [place] [address] Performing Lab: [facility] [place] [place] [facility] [address] [facility] [place] [address] P4 eGFR(CKD-E 60 60 09/10 Specimen Type : PLASMA WHITE GLU,BUN,C PI 2020) /2021 Comment: Adriana ts performed on [employer] (405) SN:[id number] RIVER REATLYTE Ordering Prov ider: MARIO SANCHEZT S,CA Report Released Date/Time: September 10, 2021 12:10 PM [facility] Reporting Lab: [facility] [place] [facility] [address] [facility] [place] [address] Performing Lab: [facility] [place] [place] [facility] [address] [place] [facility] [place] [address] LIVER PROTEIN 8.1 6.0 - 8.5 09/10 Specimen Type: PLASMA WHITE PROFILE [MASS/VOLU /2021 Comment: Adriana ts performed on [employer] (405) SN:[id number] RIVER ME] IN Ordering Provid er: MARIO SANCHEZ SERUM OR Report Release d Date/Time: September 10, 2021 12:10 PM [facility] PLASMA Reporting Lab: [facility] [place] [facility] [facility] [address] [facility] [place] [address] Performing Lab: [facility] [place] [place] [facility] [address] [place] [facility] [place] [address] LIVER ALBUMIN 3.3 3.2 - 5.0 09/10 Specimen Type: PLASMA WHITE PROFILE [MASS/VOLU /2021 Comment: Adriana ts performed on [employer] (405) SN:[id number] RIVER ME] IN Ordering Provid er: MARIO SANCHEZ SERUM OR Report Release d Date/Time: September 10, 2021 12:10 PM [facility] PLASMA Reporting Lab: [facility] [place] [facility] [address] [facility] [place] [address] Performing Lab: [facility] [address] [place] [facility] [place] [address] LIVER BILIRUBIN. 0.6 0.2 - 1.2 09/10 Specimen Ty pe: PLASMA WHITE PROFILE TOTAL /2021 Comment: Tests performed on [employer] (405) SN:[id number] RIVER [MASS/VOLU Ordering Pro vider: MARIO SANCHEZ HI] IN Report Released Date/Time: September 10, 2021 12:10 PM [facility] SERUM OR Reporting Lab: [place] [place] [facility] [facility] PLASMA [address] [facility] [address] Performing Lab: [facility] [place] [facility] [address] [facility] [address] LIVER ALKALINE 118 40 - 150 09/10 Specimen Type: PLASMA WHITE PROFILE PHOSPHATAS /2021 Comment: Adriana ts performed on [employer] (405) SN:[id number] RIVER E Ordering Provid er: MARIO SANCHEZ [ENZYMATIC Report Relea sed Date/Time: September 10, 2021 12:10 PM [facility] ACTIVITY/V Reporting La b: [facility] [place] [facility] OLUME] IN [address] [facility] [address] SERUM OR Performing Lab : [place] [facility] [facility] PLASMA [address] [facility] [address] LIVER ALANINE 14 7 - 52 09/10 Specimen Type: P LASMA WHITE PROFILE AMINOTRANS /2021 Comment: Adriana ts performed on [employer] (405) SN:[id number] RIVER FERASE Ordering Provid er: MARIO SANCHEZ [ENZYMATIC Report Relea sed Date/Time: September 10, 2021 12:10 PM [facility] ACTIVITY/V Reporting La b: [facility] [facility] OLUME] IN [address] [facility] [address] SERUM OR Performing Lab : [place] [facility] PLASMA [address] [facility] [address] LIVER ASPARTATE 18 5 - 34 09/10 Specimen Type: PLASMA WHITE PROFILE AMINOTRANS /2021 Comment: Adriana ts performed on [employer] (405) SN:[id number] RIVER FERASE Ordering Provid er: MARIO SANCHEZ [ENZYMATIC Report Relea sed Date/Time: September 10, 2021 12:10 PM [facility] ACTIVITY/V Reporting La b: [facility] [place] [facility] [facility] OLUME] IN [address] [facility] [address] SERUM OR Performing Lab : [facility] [place] [facility] PLASMA [address] [facility] [address] LIVER FIB-4 0.87 <2.67 - 09/10 Specimen Type: P ADRIANAMA WHITE PROFILE SCORE 2.67 /2021 Comment: Tests performed on [employer] (405) SN:[id number] RIVER Ordering Provid er: MARIO SANCHEZ Report Released Date/Time: September 10, 2021 12:10 PM [facility] Reporting Lab: [facility] [address] [facility] [place] [address] Performing Lab: [facility] [place] [address] [place] [facility] [place] [address] CBC LEUKOCYTES 15.5 4.5 - 11.0 05/20 H Specimen T ype: BLOOD WHITE PROFILE [#/VOLUME] /2021 No comment en tered. RIVER IN BLOOD Ordering Provi rosendo: MARIO SANCHEZ BY Report Released Date/Time: September 10, 2021 12:10 PM [facility] AUTOMATED Reporting Lab : [facility] [place] [facility] [facility] COUNT [address] [place] [facility] [place] [address] Performing Lab: [facility] [place] [place] [facility] [address] [place] [facility] [place] [address] CBC ERYTHROCYT 4.84 4.23 - 09/10 Specimen Type : BLOOD WHITE PROFILE ES 5.66 /2021 No comment enter ed. RIVER [#/VOLUME] Ordering Pro vider: MARIO SANCHEZ IN BLOOD Report Release d Date/Time: September 10, 2021 12:10 PM [facility] BY Reporting Lab: [facility] [place] [facility] AUTOMATED [address] [place] [facility] [place] [address] COUNT Performing Lab: [facility] [place] [place] [facility] [address] [place] [facility] [place] [address] CBC HEMOGLOBIN 11.0 12.8 - 17 20 L Specimen Ty pe: BLOOD WHITE PROFILE [MASS/VOLU /2021 No comment en tered. RIVER ME] IN Ordering Provid er: MARIO SANCHEZ BLOOD Report Released Date/Time: September 10, 2021 12:10 PM [facility] Reporting Lab: [facility] [place] [place] [facility] [address] [facility] [place] [address] Performing Lab: [facility] [place] [place] [facility] [address] [place] [facility] [place] [address] CBC HEMATOCRIT 37.6 39.2 - 0520 L Specimen Type : BLOOD WHITE PROFILE [VOLUME 50.4 No comment enter ed. RIVER FRACTION] Ordering Prov ider: MARIO SANCHEZ OF BLOOD Report Release d Date/Time: September 10, 2021 12:10 PM [facility] BY Reporting Lab: [facility] [place] AUTOMATED [address] [place] [facility] [place] [address] COUNT Performing Lab: [facility] [address] [facility] [place] [address] CBC MCV 77.7 82 - 99 05/20 L Specimen Type: B LOOD WHITE PROFILE [ENTITIC /2021 No comment ente red. RIVER VOLUME] BY Ordering Pro vider: MARIO SANCHEZ AUTOMATED Report Releas ed Date/Time: September 10, 2021 12:10 PM [facility] COUNT Reporting Lab: [facility] [place] [address] [facility] [place] [address] Performing Lab: [facility] [address] [place] [facility] [place] [address] CBC MCH 22.7 26.2 - 05/20 L Specimen Type: B LOOD WHITE PROFILE [ENTITIC 32.6 No comment ente red. RIVER MASS] BY Ordering Provi rosendo: MARIO SANCHEZT AUTOMATED Report Releas ed Date/Time: September 10, 2021 12:10 PM [facility] COUNT Reporting Lab: [facility] [place] [facility] [address] [facility] [address] Performing Lab: [facility] [place] [address] [place] [facility] [place] [address] CBC MCHC 29.3 30.8 - 05/20 L Specimen Type: B LOOD WHITE PROFILE [MASS/VOLU 35.1 /2021 No comment en tered. RIVER ME] BY Ordering Provid er: MARIO SANCHEZ AUTOMATED Report Releas ed Date/Time: September 10, 2021 12:10 PM [facility] COUNT Reporting Lab: [facility] [place] [address] [facility] [address] Performing Lab: [facility] [place] [address] [facility] [place] [address] CBC PLATELETS 411 140 - 360 05/20 H Specimen Typ e: BLOOD WHITE PROFILE [#/VOLUME] /2021 No comment en tered. RIVER IN BLOOD Ordering Provi rosendo: MARIO SANCHEZT BY Report Released Date/Time: September 10, 2021 12:10 PM [facility] AUTOMATED Reporting Lab : [facility] [facility] COUNT [address] [facility] [place] [address] Performing Lab: [facility] [place] [address] [facility] [place] [address] CBC PLATELET 9.4 9.2 - 12.4 09/10 Specimen Typ e: BLOOD WHITE PROFILE MEAN /2021 No comment enter ed. RIVER VOLUME Ordering Provid er: MARIO SANCHEZ [ENTITIC Report Release d Date/Time: September 10, 2021 12:10 PM [facility] VOLUME] IN Reporting La b: [facility] [place] BLOOD BY [address] [place] [facility] [place] [address] AUTOMATED Performing La b: [facility] [place] [facility] COUNT [address] [facility] [place] [address] CBC ERYTHROCYT 18.6 12.0 - 09/10 H Specimen Type : BLOOD WHITE PROFILE E 16.0 /2021 No comment enter ed. RIVER DISTRIBUTI Ordering Pro vider: MARIO SANCHEZ ON WIDTH Report Release d Date/Time: September 10, 2021 12:10 PM [facility] [RATIO] BY Reporting La b: [facility] [place] AUTOMATED [address] [place] [facility] [place] [address] COUNT Performing Lab: [facility] [address] [facility] [place] [address] CBC LYMPHOCYTE 3.7 14.0 - 0520 L Specimen Type : BLOOD WHITE PROFILE S/100 42.3 /2021 No comment enter ed. RIVER LEUKOCYTES Ordering Pro vider: MARIO SANCHEZ IN BLOOD Report Release d Date/Time: September 10, 2021 12:10 PM [facility] BY Reporting Lab: [facility] [place] AUTOMATED [address] [place] [facility] [place] [address] COUNT Performing Lab: [facility] [address] [facility] [place] [address] CBC MONOCYTES/ 6.8 5.1 - 13.7 09/10 Specimen T ype: BLOOD WHITE PROFILE 100 /2021 No comment enter ed. RIVER LEUKOCYTES Ordering Pro vider: MARIO SANCHEZ IN BLOOD Report Release d Date/Time: September 10, 2021 12:10 PM [facility] BY Reporting Lab: [facility] [place] AUTOMATED [address] [place] [facility] [place] [place] [place] [address] COUNT Performing Lab: [facility] [address] [place] [facility] [place] [address] CBC GRANULOCYT 88.0 43.7 - 05/20 H Specimen Type : BLOOD WHITE PROFILE ES/100 75.8 /2021 No comment enter ed. RIVER LEUKOCYTES Ordering Pro vider: MARIO SANCHEZ IN BLOOD Report Release d Date/Time: September 10, 2021 12:10 PM [facility] BY Reporting Lab: [facility] AUTOMATED [address] [place] [facility] [place] [place] [address] COUNT Performing Lab: [facility] [address] [place] [facility] [place] [address] CBC EOSINOPHIL 0.1 0.4 - 6.8 05/20 L Specimen Ty pe: BLOOD WHITE PROFILE S/100 /2021 No comment enter ed. RIVER LEUKOCYTES Ordering Pro vider: MARIO SANCHEZ IN BLOOD Report Release d Date/Time: September 10, 2021 12:10 PM [facility] BY Reporting Lab: [facility] AUTOMATED [address] [place] [facility] [place] [place] [address] COUNT Performing Lab: [facility] [address] [place] [facility] [place] [address] CBC BASOPHILS/ 0.4 0.1 - 2.0 05/20 Specimen Ty pe: BLOOD WHITE PROFILE 100 /2021 No comment enter ed. RIVER LEUKOCYTES Ordering Pro vider: MARIO SANCHEZ IN BLOOD Report Release d Date/Time: September 10, 2021 12:10 PM [facility] BY Reporting Lab: [facility] AUTOMATED [address] [place] [facility] [place] [place] [address] COUNT Performing Lab: [facility] [address] [place] [facility] [place] [address] CBC IMMATURE 1.0 0.0 - 0.7 05/20 H Specimen Type : BLOOD WHITE PROFILE GRANULOCYT /2021 No comment en tered. RIVER ES/100 Ordering Provid er: MARIO SANCHEZ LEUKOCYTES Report Relea sed Date/Time: September 10, 2021 12:10 PM [facility] IN BLOOD Reporting Lab: [facility] BY [address] [place] [facility] [place] [place] [address] AUTOMATED Performing La b: [facility] COUNT [address] [place] [facility] [place] [place] [address] CBC NUCLEATED 0.0 0.0 - 0.0 05/20 Specimen Typ e: BLOOD WHITE PROFILE ERYTHROCYT /2021 No comment en tered. RIVER ES Ordering Provid er: MARIO SANCHEZT [#/VOLUME] Report Relea sed Date/Time: September 10, 2021 12:10 PM [facility] IN BLOOD Reporting Lab: [facility] [address] [place] [facility] [place] [place] [address] AUTOMATED Performing La b: [facility] COUNT [address] [place] [facility] [place] [place] [address] CBC IMMATURE 0.2 0 - 0.06 05/20 H Specimen Type: BLOOD WHITE PROFILE GRANULOCYT /2021 No comment en tered. RIVER ES Ordering Provid er: MARIO SANCHEZT [#/VOLUME] Report Relea sed Date/Time: September 10, 2021 12:10 PM [facility] IN BLOOD Reporting Lab: [facility] [address] [facility] [place] [address] Performing Lab: [facility] [address] [place] [facility] [place] [address] CBC BASOPHILS 0.1 0.01 - 05/20 Specimen Type: BLOOD WHITE PROFILE [#/VOLUME] 0.13 /2021 No comment en tered. RIVER IN BLOOD Ordering Provi rosendo: MARIO SANCHEZ BY Report Released Date/Time: September 10, 2021 12:10 PM [facility] AUTOMATED Reporting Lab : [facility] [address] [place] [facility] [place] [address] Performing Lab: [facility] [address] [place] [facility] [place] [address] CBC EOSINOPHIL 0.0 0.03 - 05/20 L Specimen Type : BLOOD WHITE PROFILE S 0.44 /2021 No comment enter ed. RIVER [#/VOLUME] Ordering Pro vider: MARIO SANCHEZ IN BLOOD Report Release d Date/Time: September 10, 2021 12:10 PM [facility] BY Reporting Lab: [facility] [address] [facility] [place] [address] COUNT Performing Lab: [facility] [address] [facility] [place] [address] CBC LYMPHOCYTE 0.6 1.0 - 3.2 05/20 L Specimen Ty pe: BLOOD WHITE PROFILE S /2021 No comment enter ed. RIVER [#/VOLUME] Ordering Pro vider: MARIO SANCHEZ IN BLOOD Report Release d Date/Time: September 10, 2021 12:10 PM [facility] BY Reporting Lab: [facility] AUTOMATED [address] [place] [facility] [address] COUNT Performing Lab: [facility] [address] [facility] [place] [address] CBC MONOCYTES 1.1 0.3 - 1.1 05/20 Specimen Typ e: BLOOD WHITE PROFILE [#/VOLUME] /2021 No comment en tered. RIVER IN BLOOD Ordering Provi rosendo: MARIO SANCHEZ BY Report Released Date/Time: September 10, 2021 12:10 PM [facility] AUTOMATED Reporting Lab : [facility] COUNT [address] [facility] [place] [address] Performing Lab: [facility] [address] [facility] [place] [address] CBC NEUTROPHIL 13.6 2.2 - 7.6 05/20 H Specimen Ty pe: BLOOD WHITE PROFILE S /2021 No comment enter ed. RIVER [#/VOLUME] Ordering Pro vider: MARIO SANCHEZ IN BLOOD Report Release d Date/Time: September 10, 2021 12:10 PM [facility] BY Reporting Lab: [facility] AUTOM[facility] [address] [place] [facility] [address] COUNT Performing Lab: [facility] [address] [facility] [place] [address] CBC NUCLEATED 0.00 0 - 0 0520 Specimen Type: BLOOD WHITE PROFILE ERYTHROCYT /2021 No comment en tered. RIVER ES Ordering Provid er: MARIO SANCHEZ [#/VOLUME] Report Relea sed Date/Time: September 10, 2021 12:10 PM [facility] IN BLOOD Reporting Lab: [facility] BY [address] [facility] [address] AUTOMATED Performing La b: [facility] COUNT [address] [facility] [address] COVID-19 COVID-19 NEGATIVE 09/10 Specimen Type : NASAL CAVITY WHITE AG SCREEN AG /2021 Comment: Test ing Performed By: Nicole COOK PANEL SCRN([facility] Ordering Provi rosendo: RAJENDRA OLIVARES [place] BINAX(405 BINAX) Report Releas ed Date/Time: September 14, 2021 10:11 AM [facility] ) Reporting Lab: [facility] [address] [facility] [address] Performing Lab: [facility] [address] [facility] [address] Vital Signs Combined list of inpatient and outpatient Vital Signs from Department of Defense and Veterans Affairs, ranging from 12 months to all on record, depending upon the facility. Vital Sign Value Date Comments Source SYSTOLIC BLOOD PRESSURE 157 12/23/2021 02:09:54 [facility] DIASTOLIC BLOOD PRESSURE 100 12/23/2021 02:09:54 [facility] PULSE OXIMETRY 95% 12/23/2021 02:09:54 [facility] WEIGHT 216 12/23/2021 02:09:54 [facility] [place] [facility] [facility] BMI 40kg/m2 12/23/2021 02:09:54 [facility] [place] [facility] [facility] PAIN 10 12/23/2021 02:09:54 [facility] [facility] HEIGHT 62 12/23/2021 02:09:54 [facility] [facility] TEMPERATURE 97.8 12/23/2021 02:09:54 [facility] [place] [facility] [facility] PULSE 102 12/23/2021 02:09:54 [facility] RESPIRATION 20 12/23/2021 02:09:54 [facility] [facility] SYSTOLIC BLOOD PRESSURE 121 10/26/2021 10:47:17 [facility] DIASTOLIC BLOOD PRESSURE 81 10/26/2021 10:47:17 [facility] PULSE OXIMETRY 95% 10/26/2021 10:47:17 [facility] PAIN 5 10/26/2021 10:47:17 [facility] TEMPERATURE 97.2 10/26/2021 10:47:17 [facility] PULSE 101 10/26/2021 10:47:17 [facility] RESPIRATION 18 10/26/2021 10:47:17 [facility] SYSTOLIC BLOOD PRESSURE 141 09/10/2021 11:39:22 [facility] DIASTOLIC BLOOD PRESSURE 86 09/10/2021 11:39:22 [facility] PULSE OXIMETRY 96% 09/10/2021 11:39:22 [facility] PAIN 10 09/10/2021 11:39:22 [facility] [facility] TEMPERATURE 98.7 09/10/2021 11:39:22 [facility] [facility] PULSE 96 09/10/2021 11:39:22 [facility] [facility] RESPIRATION 22 09/10/2021 11:39:22 [facility] [place] [facility] SYSTOLIC BLOOD PRESSURE 115 07/13/2021 11:09:15 [facility] DIASTOLIC BLOOD PRESSURE 82 07/13/2021 11:09:15 [facility] PULSE OXIMETRY 96% 07/13/2021 11:09:15 [facility] WEIGHT 211 07/13/2021 11:09:15 [facility] BMI 37kg/m2 07/13/2021 11:09:15 [facility] PAIN 5 07/13/2021 11:09:15 [facility] TEMPERATURE 97.5 07/13/2021 11:09:15 [facility] PULSE 89 07/13/2021 11:09:15 [facility] RESPIRATION 18 07/13/2021 11:09:15 [facility] Encounters Combined list of: 1) Encounters from Department of Veterans Affairs facilities going back up to the last 18 months. 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 Location Location Encounter Encounter Reason Attending ADM DC Stat us Disposition Source Details Type Number For Provider Date Date Visit Outpatient 20722-5.40 08/18 [place] En[place] [id number] [facility] 34627-2.40 09/24 [facility] Encounter [id number] [facility] Outpatient 33447-240 Diagnos THAIVEETTI 10/13 [facility] Encounter [id number] is: ZACHARY Morgan G /2020 R IVER ICD-10- T CM I10 [facility] Essenti al (primar y) hyperte nsion<b r/>with Provide r Comment s: Benign essenti al hyperte nsion (SCT 5366776 ) Outpatient 88935-0.40 10/29 [place] [place] En[place] [id number] [facility] [place] 39034-4.40 10/29 [facility] Encounter [id number] /2021 [facility] Diagnos VO,ODILON P 11/16 [facility] [id number] is: /2020 [facility] FEE 45 ICD-10- CLINIC CM I48.91 Unspeci fied atrial fibrill ation<b r/>with Provide r Comment s: Unspeci fied Atrial Fibrill ation OFFICE O/P Diagnos VO,ODILON P 11/16 [facility] EST MOD [id number] is: /2020 [place] 30-39 MIN ICD-10- [facility] CM [facility] I48.91 Unspeci fied atrial fibrill ation<b r/>with Provide r Comment s: Atrial fibrill ation (SCT [id number] 4) Outpatient 87730-0.40 11/17 [place] [facility] [id number] [place] [facility] 38644-0.40 11/19 [facility] Encounter [id number] [facility] Outpatient 20070-4..1 12/17 [facility] [id number] [facility] 18259-3.40 12/17 [facility] Encounter [id number] [facility] Outpatient 33851-9.40 12/17 [facility] Encounter [id number] /2021 [place] [facility] 54768-8.40 12/17 [place] Encounter [id number] /2021 [place] [facility] 30551-140 12/17 [facility] Encounter [id number] /2021 [facility] Outpatient 93698-8.40 12/17 [place] Encounter [id number] [facility] Outpatient 58349-0.40 12/23 [place] En[place] [id number] [facility] HC PRO 27783-9.40 Diagnos ANABELLE VALLEJO 12/23 [place] PHONE CALL [id number] is: AN RIVE R 11-20 MIN ICD-10- [place] CM [facility] Z79.01 correction (curren t) use of anticoa gulants
Provide r Comment s: Long-te rm current use of anticoa gulant (SCT 7542496 03) Outpatient 38375-9.40 01/05 [facility] [place] Encounter [id number] /2021 [facility] Outpatient 88096-2.40 01/28 [facility] Encounter [id number] [facility] IMMUNIZATI 56950-6.40 Diagnos Cassandra DUPONT 02/03 [place] ON ADMIN [id number] is: USAN V [place] 95 ICD-10- CLINIC CM Z23 Encount er for immuniz ation<b r/>with Provide r Comment s: Encount er for Immuniz ation [place] PRO 82359-2.40 Diagnos NAYELICLEMENT 02/25 [place] PHONE CALL [id number] is: YA RIVE R 5-10 MIN ICD-10- [place] CM [facility] Z71.89 Other specifi ed certified lactation counselor ing<br/ >with Provide r Comment s: Other specifi ed certified lactation counselor ing Outpatient 47648-6.40 03/16 [place] Encounter [id number] [facility] Outpatient 44138-1.40 Diagnos NINO 04/19 [place] Encounter [id number] is: ZACHARY Morgan R JUANER ICD-10- [place] CM [facility] I50.9 Heart failure , unspeci fied
with Provide r Comment s: Heart Failure , unspeci fied Outpatient 59378-1.40 05/20 [place] Encounter [id number] [facility] Outpatient 27449-8.40 Diagnos LORENZA- 05/20 [place] Encounter [id number] is: REGINA SEGURA [place] 44 ICD-10- [facility] CM M10.9 Gout, unspeci fied
with Provide r Comment s: Gout, unspeci fied HC PRO 38857-4.40 Diagnos ZAHIDA ALEGRIA 06/21 [place] PHONE CALL [id number] is: EN M RIVE R 5-10 MIN ICD-10- [place] CM [facility] Z71.89 Other specifi ed certified lactation counselor ing<br/ >with Provide r Comment s: Other specifi ed certified lactation counselor ing Outpatient 49570-7.40 Diagnos SALVATORE,VIVIANA 06/21 [place] Encounter [id number] is: GIGI B [place] ICD-10- J[place] CM [facility] M10.062 Idiopat hic gout, left knee
with Provide r Comment s: Idiopat hic Gout, left Knee Outpatient 76116-6.40 06/23 [place] Encounter [id number] [facility] HC PRO 28628-3.40 Diagnos DUMBUYA,BI 06/26 [place] PHONE CALL [id number] is: NTU RIVE R 11-20 MIN ICD-10- J[place] CM [facility] Z71.89 Other specifi ed certified lactation counselor ing<br/ >with Provide r Comment s: Other specifi ed certified lactation counselor ing Outpatient 18268-3.40 06/28 [place] Encounter [id number] [facility] Outpatient 16205-1.40 06/29 [facility] Encounter [id number] [facility] Outpatient 84044-2.40 06/29 [place] En[place] [id number] [place] [facility] HC PRO 16002-0.40 Diagnos VIRIDIANA ALLEN 07/08 [place] PHONE CALL [id number] is: MAYTE L RIVE R 11-20 MIN ICD-10- J[place] CM [facility] 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
wi th Provide r Comment s: Long-te rm current use of anticoa gulant ([facility] 4025164 03) Outpatient 50562-4.40 07/13 [place] En[place] [id number] [facility] Outpatient 75625-5.40 07/13 [facility] Encounter [id number] /2021 [facility] Out[facility] 49791-5.40 08/02 [place] Encounter [id number] /2021 [facility] Outpatient 23575-4.40 Diagnos BRITT- 08/12 [place] Encounter [id number] is: SEGURAREGINA [place] 69 ICD-10- [facility] CM M10.9 Gout, unspeci fied
with Provide r Comment s: Gout (SNOMED CT 7443639 7) Outpatient 93189-2.40 ZAHIDA ALEGRIA 09/10 [place] Encounter [id number] [facility] EMERGENCY 96731-940 Diagnos LAURA 09/10 [facility] DEPT VISIT [id number] is: MARIO R IVER ICD-10- [facility] T CM [facility] M79.673 Pain in unspeci fied foot
with Provide r Comment s: Pain in unspeci fied Foot OFFICE 72701-8 Diagnos [facility] 09/10 [place] CONSULTATI [id number] is: RISTOPHER /2021 [place] ICD-10- J T CM [facility] M10.9 Gout, unspeci fied
with Provide r Comment s: Gout (SCT 1293198 7) Outpatient 52981-9.40 09/14 [facility] [place] Encounter [id number] /2021 [facility] Outpatient 10570-2.40 Diagnos BRITT- 09/16 [place] Encounter [id number] is: REGINA SEGURA [place] 27 ICD-10- [facility] CM M10.9 Gout, unspeci fied
with Provide r Comment s: Gout (SCT 8367009 7) Outpatient 58642-0.40 09/23 [facility] En[facility] [id number] [facility] Outpatient 31528-3.40 10/12 [facility] Encounter [id number] /2022 [facility] Outpatient 99823-0.40 10/15 [place] Encounter [id number] [facility] Outpatient 33105-7.40 ZAHIDA ALEGRIA 10/15 [place] Encounter [id number] EN M [facility] ADM 98977-2.40 Diagnos Nicola TIRADO 10/21 [place] SARSCOV2 [id number] is: EATHER /2021 [place] 50MCG/0.25 07 ICD-10- CLINIC MLBST CM Z23 Encount er for immuniz ation<b r/>with Provide r Comment s: Encount er for immuniz ation (ICD-10 -CM Z23.) Outpatient 74116-6.40 10/26 [facility] Encounter [id number] [facility] OFFICE O/P 71633-8.40 Diagnos BRITT- 10/26 [place] EST MOD [id number] is: SEGURAREGINA [place] 30-39 MIN 56 ICD-10- [facility] CM M10.9 Gout, unspeci fied
with Provide r Comment s: Gout (SCT 1370998 7) Outpatient 33230-0.40 11/05 [facility] [place] En[facility] [id number] [facility] Outpatient 30802-8.40 11/05 [place] Encounter [id number] /2022 [facility] Outpatient 63083-2.40 11/30 [place] Encounter [id number] [facility] Outpatient 72529-1.40 12/07 [place] Encounter [id number] [facility] Outpatient 01937-9.40 12/07 [place] Encounter [id number] [facility] Outpatient 92757-7.40 12/10 [place] Encounter [id number] [facility] Outpatient 43384-0.40 12/21 [place] Encounter [id number] [place] [facility] Outpatient 07908-5.40 12/21 WH[facility] [place] Encounter [id number] /2022 [facility] [facility] Outpatient 77623-0.40 12/21 [place] Encounter [id number] [facility] Outpatient 25906-2.40 12/21 [place] Encounter [id number] [facility] EMERGENCY 38475-6.40 Diagnos DAVIS PHILLIP 12/23 [facility] DEPT VISIT [id number] is: TER RIVE R ICD-10- JCT CM [facility] S62.91X A Unsp fractur e of right wrist and hand, init for clos fx
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 Social History Response Date Comment Source Type Tobacco smoking LIFETIME 12/23/2021 DM DIAMOND status NHIS NON-TOBACCO USER [facility] History of tobacco VA-TOBACCO FORMER 10/26/2021 [place] [facility] use [facility] History of tobacco QUIT TOBACCO USE > 09/10/2021 [place] use 7 YEARS AGO [facility] History of tobacco VA-TOBACCO FORMER 11/16/2020 [facility] use USER History of tobacco VA-TOBACCO QUIT 15 09/06/2018 [facility] use YRS OR MORE History of tobacco QUIT TOBACCO USE > 12/19/2017 Former user of [facility] [place] use 7 YEARS AGO tobacco products [facility] quit 27 yrs ago History of tobacco MED CURRENT SMOKER 11/12/2017 BRIJESH Christian [place] use History of tobacco QUIT TOBACCO USE > 10/26/2016 [place] use 7 YEARS AGO [facility] History of tobacco QUIT TOBACCO USE > 01/07/2016 [place] use 7 YEARS AGO [facility] History of tobacco QUIT TOBACCO USE > 09/09/2008 8 yrs. [place] use 7 YEARS AGO [facility] History of tobacco QUIT TOBACCO USE 08/29/2007 [place] use 1-7 YEARS AGO [facility] History of tobacco QUIT TOBACCO USE IN 02/22/2007 [place] use PAST YEAR [facility] History of tobacco QUIT TOBACCO USE 08/28/2006 5 yrs. ago [place] use 1-7 YEARS AGO [facility] History of tobacco QUIT TOBACCO USE 08/22/2005 quit 4 yr ago [place] use 1-7 YEARS AGO [facility] History of tobacco HISTORY OF SMOKING 08/27/200412/25 [place] use [facility] History of tobacco QUIT TOBACCO USE IN 12/19/2003 [place] use PAST YEAR [facility] History of tobacco HISTORY OF SMOKING 09/05/2003 quit 12/25 [place] use [facility] History of tobacco CURRENT SMOKER 03/27/2002 Pt. smokes 1 ppd. [place] [facility] History of tobacco CURRENT SMOKER 03/14/2001 [place] [facility] Plan of Care List of future care activities from Department of Veterans Affairs facilities. Additional future care activities may be listed in the Assessment and Plan section. Date/Time Care Activity Care Activity Detail Facility 01/18/2022 AMBULATORY - MEDICINE AMBULATORY - MEDICINE [facility] Advance Directives List of completed, amended, or rescinded Advance Directives on record at Department of Veterans Affairs facilities. An actual copy of the Directive is not included. Date Advance Directive Provider Source 04/06/[address] [facility]
--- OUTSIDE RECORDS SUMMARY | 2021-12-31 12:54 | XMS_ITS | Encounter Summary ---
:1945 Author Organization [facility] Address [address] [place] [address] Care Team Providers Name Role Phone Estefany Soriano MD Primary Care Provider [phone] Encounter Details Date Type Department Care Team Description 12/29/2021 Hospital Encounter XRay at [facility] [place], Shorty Injury of right [address] Gatito MD wrist, initial [place], [place] [facility] encounter [id number] HELEN [phone] [place] [address] Social History Tobacco Use Types Packs/Day Years Used Date Former Smoker Quit: 1976 Smokeless Tobacco: Never Used Alcohol Use Standard Drinks/Week Comments Not Currently 0 (1 standard drink = 0.6 oz pure alcoho l) Sex Assigned at Date Recorded Not on file documented as of this encounter Medications at Time of Discharge Medication Sig Dispensed Refills Start Date End Date acetaminophen (Tylenol) Take 1 tablet by 0 2020 500 mg Tablet mouth every 6 hours as needed. amLODIPine (Norvasc) 10 mg Take 1 tablet by 0 Tablet mouth daily. allopurinoL (Zyloprim) 300 300 mg. 0 2 mg Tablet apixaban (Eliquis) 5 mg Take 1 tablet by 0 2021 Tablet mouth every 12 hours. atorvastatin (Lipitor) 80 Take 1 tablet by 0 03/25 mg Tablet mouth daily. omeprazole (PriLOSEC) 20 20 mg. 0 03/16/2021 mg Capsule, Delayed Release(E.C.) metoprolol succinate XL Take 1 tablet by 0 2020 (Toprol-XL) 200 mg Tablet mouth daily. Sustained Release 24 hr Capsaicin 0.1 % Cream APPLY SMALL AMOUNT 0 2016 TOPICALLY TWICE DAILY NEEDED folic acid (Folvite) 1 mg 1 mg. 0 08/02/2021 Tablet furosemide (Lasix) 40 mg 40 mg. 0 04/19/2021 Tablet isosorbide mononitrate CR 30 mg. 0 04/19/2021 (Imdur) 30 mg Tablet Sustained Release 24 hr potassium chloride ER 20 mEq. 0 04/19/2021 (K-Dur/Klor-Con) 10 mEq Tablet Sustained Release predniSONE (Deltasone) 5 TAKE 8 TABLETS BY 0 11/24 mg Tablet MOUTH DAILY FOR 5 DAYS, THEN TAKE 4 TABLETS DAILY FOR 2 DAYS, THEN TAKE 2 TABLETS DAILY FOR 2 DAYS, THEN TAKE 1 TABLET BÁRBARA documented as of this encounter Plan of Treatment Upcoming Encounters Date Type Specialty Care Team Description 01/12/2022 Appointment Radiology Shoryt Chavez MD [facility] [address] ORTHOPAEDIC SURG [place], [place] [address] (Wo rk) 01/12/2022 Office Visit Orthopaedics Rody Sheridan PA [facility] [address] ORTHOPAEDIC SURG [place], [place] [address] (Wo rk) 01/12/2022 Office Visit Orthopaedics documented as of this encounter Procedures Procedure Name Priority Date/Time Associated Diagnosis Comme nts XR WRIST 3 VIEWS Routine 12/29/2021 1:19 PM Injury of right Re sults for this RIGHT EDT wrist, initial procedure are in encounter the results section. documented in this encounter Results XR Wrist 3 Views Right (12/29/2021 1:19 PM EDT) Anatomical Region Laterality Modality Right Digital Radiography Specimen (Source) Anatomical Location Collection Method / Collectio n Time Received Time / Laterality Volume Impressions 12/29/2021 2:28 PM EDT Healing impacted distal radius fracture with no change in alignment. Thank you for letting us participate in the care of this patient. ??If you are a health care provider and have any questi ons regarding this report, please contact the number below. ??For patients who have questions please contact the health daycare teacher that requested your imaging first. ? Narrative 12/29/2021 2:28 PM EDT EXAMINATION: XR WRIST 3 VIEWS RIGHT CLINICAL HISTORY: ??Right Distal Rad fx Doi 12/23/2021 (reduced) ??? alignment xr in splint (as entered by ordering p rovider in the order requisition) TECHNIQUE: ??PA, oblique, and lateral vi ews of the right wrist. Right wrist radiographs 12/23/2021. COMPARISON: None FINDINGS: The patient is imaged in a plaster splin t. There is an impacted fracture of the dis onesimo radius with no change in alignment, including neutral radial tilt. There is increasing sclerosis at the fracture site, consistent with interval healing. There is diffuse osseous mineralization. There is soft tissue swelling of the wri st and forearm. There are vascular calcifications. Procedure Note Yaima Baird MD - 12/29/2021Formattin g of this note might be different from the original. EXAMINATION: XR WRIST 3 VIEWS RIGHT CLINICAL HISTORY: Right Distal Rad fx D oi 12/23/2021 (reduced) ? alignment xr in splint (as entered by ordering p rovider in the order requisition) TECHNIQUE: PA, oblique, and lateral view s of the right wrist. Right wrist radiographs 12/23/2021. COMPARISON: None FINDINGS: The patient is imaged in a plaster splin t. There is an impacted fracture of the dis onesimo radius with no change in alignment, including neutral radial tilt. There is increasing sclerosis at the fracture site, consistent with interval healing. There is diffuse osseous mineralization. There is soft tissue swelling of the wri st and forearm. There are vascular calcifications. IMPRESSION Healing impacted distal radius fracture with no change in alignment. Thank you for letting us participate in the care of this patient. If you are a health care provider and have any questi ons regarding this report, please contact the number below. For patients w ho have questions please contact the health daycare teacher that requested your imaging first. Shorty Chavez MD IMG DX ORDERABLES documented in this encounter Visit Diagnoses Diagnosis Injury of right wrist, initial encounter documented in this encounter Care Teams Apartment Leasing Specialist Relationship Specialty Start Date End Date Estefany Soriano MD PCP - General Internal Medicine 12/29/[address] [place] [address] documented as of this encounter
--- OUTSIDE RECORDS SUMMARY | 2021-12-31 12:54 | XMS_ITS | Encounter Summary ---
:1945 [place] [address] Care Team Providers Name Role Phone None Primary Care Provider Unavailable Encounter Details Date Type Department Care Team Description 12/23/2021 Ancillary Procedure Radiology Library at Cordell Chavez [facility] [place] [address] ORTHOPAEDIC SURGERY [phone] [place], [place] [address] (Wo rk) Social History Tobacco Use Types Packs/Day Years Used Date Never Assessed Sex Assigned at Date Recorded Not on file documented as of this encounter Plan of Treatment Upcoming Encounters Date Type Specialty Care Team Description 01/12/2022 Appointment Radiology Shorty Chavez MD [facility] ORTHOPAEDIC SURG [place], [place] [address] (Wo rk) 01/12/2022 Office Visit Orthopaedics Rody Sheridan PA [facility] ORTHOPAEDIC SURG [place], [place] [address] (Wo rk) 01/12/2022 Office Visit Orthopaedics documented as of this encounter Procedures Procedure Name Priority Date/Time Associated Diagnosis Comme nts FILM LIBRARY Routine 12/23/2021 12:00 AM Results for this STORAGE ONLY DX EDT procedure ar e in WRIST the results section. documented in this encounter Results Film Library- Storage Only DX Wrist (12/23/2021 12:00 AM EDT) Specimen (Source) Anatomical Location Collection Method / Collectio n Time Received Time / Laterality Volume Narrative RAD - 12/29/2021 4:43 PM EDT This exam is auto-finalizing. It's purpo se is for storage only. 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
--- OUTSIDE RECORDS SUMMARY | 2021-12-31 12:54 | XMS_ITS | Encounter Summary ---
:1945 Author Organization [facility] Address [address] [place] [address] Support Name Relationship Address Phone CATHERINE SERNA Unavailable [address] [place] [address] COLEMAN, DAUGHTER Unavailable Unavailable Insurance Providers: All historical and current Section Date Range: From patient's date of to the date document was created.This section includes the names of all active insurance providers for the patient. Insurance Type of Plan Start of End of Group Member Insurance Policy P atient's Provider Coverage Name Policy Policy Number ID Provider's Peters's Relationship Coverage Coverage Telephone Name to Policy Number Peters MEDICARE MEDICARE PART Oct 22, PART A [id number] [phone] WILIAMIGN ON, PATIENT (WNR) (M) A 2011 [id number] 1 RUPERT MEDICARE MEDICARE PART Oct 22, PART A [id number] [phone] KATIE ON, PATIENT (WNR) (M) A 2011 [id number] RUPERT Selected Encounter This section includes the information on record at [place] for the Encounter. Date/Time Encounter Type Encounter Description Reason Provider Source Jun 29, 2021 09:37 Outpatient Encounter PRIMARY CARE/MEDICINE AM E Encounter Template Text not used by [place] Plan of Treatment: Future Appointments (+ 6 months) and Future Tests (+/- 45 days) The Plan of Treatment section includes future care activities for the patient from all [place] treatmentfacilities. This section includes future appointments and future orders which are active, pending orscheduled.Future Appointments This section includes appointments that were scheduled to occur 6 months from the date of the Encounter, up to a maximum of 20 appointments. The data comes from all [place] treatment facilities. Appointment Date/Time Appointment Type Appointment Facili ty Name Jul 07, 2021 11:00 AM AMBULATORY - MEDICINE [facility] Jul 08, 2021 02:00 PM AMBULATORY - MEDICINE [facility] Jul 13, 2021 11:00 [facility] Aug 10, 2021 11:00 [facility] Aug 12, 2021 01:00 [facility] September 10, 2021 11:25 AM AMBULATORY - MEDICINE [facility] September 16, 2021 01:30 PM [facility] Oct 21, 2021 10:30 [facility] Oct 21, 2021 11:00 [facility] Oct 26, 2021 11:00 [facility] Dec 23, 2021 02:04 AM AMBULATORY - MEDICINE [facility] Dec 24, 2021 01:00 [facility] Dec 28, 2021 02:30 PM AMBULATORY - MEDICINE [facility] Dec 28, 2021 02:31 PM AMBULATORY - NONE [facility] Lab Results: +/- 30 days of the encounter This section includes the Chemistry and Hematology Lab Results on record with [place] for the patient. Radiology Reports and Pathology Reports are provided separately, in subsequent sections.Lab Results This section contains the Chemistry/Hematology Results that were resulted 30 days before or 30 daysafter the date of the Encounter. Date/Time Source Result Type Result - Unit Interpretation Reference Range Comment Jul 13, 2021 [facility] P4 GLU,BUN,CREAT,LYTES,CA Speci men Type: PLASMA 12:28 PM CLINIC Comment: Tests performed on Take the Interview (405) SN:[id number] Ordering Provid er: BRENDA SANCHEZ Report Released Date/Time: Jul 13, 2021 12:21 PM Reporting Lab: [facility] [address] [facility] [address] Performing Lab: [facility] [address] [facility] [address] UREA NITROGEN 14 7-25 SODIUM 138 135-145 POTASSIUM 4.1 3.5-5.0 CHLORIDE 103 100-110 CARBON DIOXIDE 23 20-30 ANION GAP 12 4-16 GLUCOSE 97 65-100 CREATININE 1.10 0.5-1.5 CALCIUM 8.6 8.5-10.5 eGFR(CKD-EPI 2020) 70 >60 Jul 13, 2021 12:28 [facility] CBC PROFILE Specimen T ype: BLOOD PM No comment enter ed. Ordering Provid er: BRENDA SANCHEZ Report Released Date/Time: Jul 13, 2021 12:20 PM Reporting Lab: [facility] [address] [facility] [address] Performing Lab: [facility] [address] [facility] [address] WBC 8.8 4.5-11.0 RBC 5.25 4.23-5.66 HGB 12.9 12.8-17 HEMATOCRIT 40.0 39.2-50.4 MCV 76.2 L 82-99 MCH 24.6 L 26.2-32.6 MCHC 32.3 30.8-35.1 PLT 357 140-360 MPV 9.6 9.2-12.4 RDW 20.7 H 12.0-16.0 LYMPH % 12.6 L 14.0-42.3 MONO % 12.2 5.1-13.7 NEUT % 71.3 43.7-75.8 EOS % 2.2 0.4-6.8 BASO % 0.9 0.1-2.0 IG % 0.8 H 0.0-0.7 NUCLEATED RED CELLS 0.0 0.0-0.0 ABSOLUTE IG 0.1 H 0-0.06 ABSOLUTE BASOPHILS 0.1 0.01-0.13 ABSOLUTE EOS. 0.2 0.03-0.44 ABSOLUTE LYMPHOCYTES 1.1 1.0-3.2 ABSOLUTE MONOCYTES 1.1 0.3-1.1 ABSOLUTE GRANULOCYTES 6.3 2.2-7.6 ABSOLUTE NRBC 0.00 0-0 Jul 07, 2021 [facility] GLYCOHEMOGLOBIN (A1C Specimen T ype: BLOOD 11:03 AM CLINIC ONLY) Comment: Tests performed on Take the Interview (161) SN:[id number] Ordering Provid er: BRENDA SANCHEZ Report Released Date/Time: May 20, 2021 10:59 AM Reporting Lab: [facility] [address] [facility] [address] Performing Lab: [facility] [address] [facility] [address] HEMOGLOBIN A1C 6.1 H 4.0-5.6 Jul 07, 2021 11:03 [facility] FERRITIN Specimen T ype: SERUM AM Comment: Tests performed on Brito Dinkey Brakeman (405) SN:[id number] Ordering Provid er: BRENDA SANCHEZ Report Released Date/Time: May 20, 2021 10:59 AM Reporting Lab: [facility] [address] [facility] [address] Performing Lab: [facility] [address] [facility] [address] FERRITIN 21.5 20-300 Jul 07, 2021 [facility] IRON+TIBC(P) Specimen Type : PLASMA 11:03 AM Comment: Tests performed on Brito Dinkey Brakeman (405) SN:[id number] Ordering Provid er: BRENDA SANCHEZ Report Released Date/Time: May 20, 2021 10:59 AM Reporting Lab: [facility] [address] [facility] [address] Performing Lab: [facility] [address] [facility] [address] IRON 35 L 40-160 TIBC 470 204-475 IRON SATURATION(P) 7 L >15 UIBC(P) 435 H 126-382 Jul 07, 2021 11:03 [facility] PHOSPHORUS Specimen T ype: PLASMA AM Comment: Tests performed on Brito Dinkey Brakeman (405) SN:[id number] Ordering Provid er: BRENDA SANCHEZ Report Released Date/Time: May 20, 2021 10:59 AM Reporting Lab: [facility] [address] [facility] [address] Performing Lab: [facility] [address] [facility] [address] PHOSPHORUS 3.5 2.5-5.0 Jul 07, 2021 11:03 [facility] URIC ACID Specimen T ype: PLASMA AM Comment: Tests performed on Brito Dinkey Brakeman (405) SN:[id number] Ordering Provid er: BRENDA SANCHEZ Report Released Date/Time: May 20, 2021 10:59 AM Reporting Lab: [facility] [address] [facility] [address] Performing Lab[facility] [address] [facility] [address] URIC ACID 8.9 H 3.3-8.7 Jul 07, 2021 11:03 [facility] ALBUMIN Specimen T ype: PLASMA AM Comment: Tests performed on Brito Dinkey Brakeman (405) SN:[id number] Ordering Provid er: BRENDA SANCHEZ Report Released Date/Time: May 20, 2021 10:59 AM Reporting Lab: [facility] [address] [facility] [address] Performing Lab: [facility] [address] [facility] [address] ALBUMIN 3.2 3.2-5.0 Jul 07, 2021 [place] [id number] GLU,BUN,CREAT,LYTES,CA Speci men Type: PLASMA 11:03 AM CLINIC Comment: Tests performed on Brito Clipboard (405) SN:[id number] Ordering Provid er: BRENDA SANCHEZ Report Released Date/Time: May 20, 2021 10:59 AM Reporting Lab: [facility] [address] [facility] [address] Performing Lab: [facility] [address] [facility] [address] UREA NITROGEN 17 7-25 SODIUM 131 L 135-145 POTASSIUM 3.9 3.5-5.0 CHLORIDE 97 L 100-110 CARBON DIOXIDE 20 20-30 ANION GAP 14 4-16 GLUCOSE 128 H 65-100 CREATININE 1.21 0.5-1.5 CALCIUM 8.3 L 8.5-10.5 eGFR(CKD-EPI 2020) 63 >60 Jul 07, 2021 [facility] VIT D 25-OH([facility]) Specimen Typ e: SERUM 11:03 AM Comment: Tests performed on Brito Dinkey Brakeman (405) SN:[id number] Ordering Provid er: BRENDA SANCHEZ Report Released Date/Time: May 20, 2021 10:59 AM Reporting Lab: [facility] [address] [facility] [address] Performing Lab: [facility] [address] [facility] [address] VIT D 25-OH(J) 17.6 L 20-50 Jul 07, 2021 [facility] PTH-INTACT(WRJ) Specimen Type : SERUM 11:03 AM Comment: Tests performed on Take the Interview (405) SN:[id number] Ordering Provid er: BRENDA SANCHEZ Report Released Date/Time: May 20, 2021 10:59 AM Reporting Lab: [facility] [address] [facility] [address] Performing Lab: [facility] [address] [facility] [address] PTH-INTACT(J) 319.0 H 8.7-77.1 Jul 07, 2021 11:03 [facility] CBC PROFILE Specimen T ype: BLOOD AM No comment enter ed. Ordering Provid er: BRENDA SANCHEZ Report Released Date/Time: May 20, 2021 10:59 AM Reporting Lab: [facility] [address] [facility] [address] Performing Lab: [facility] [address] [facility] [address] WBC 16.2 H 4.5-11.0 RBC 5.29 4.23-5.66 HGB 12.1 L 12.8-17 HEMATOCRIT 41.2 39.2-50.4 MCV 77.9 L 82-99 MCH 22.9 L 26.2-32.6 MCHC 29.4 L 30.8-35.1 PLT 695 H 140-360 MPV 9.1 L 9.2-12.4 RDW 20.0 H 12.0-16.0 LYMPH % 5.1 L 14.0-42.3 MONO % 5.4 5.1-13.7 NEUT % 86.4 H 43.7-75.8 EOS % 0.2 L 0.4-6.8 BASO % 0.4 0.1-2.0 IG % 2.5 H 0.0-0.7 NUCLEATED RED CELLS 0.0 0.0-0.0 ABSOLUTE IG 0.4 H 0-0.06 ABSOLUTE BASOPHILS 0.1 0.01-0.13 ABSOLUTE EOS. 0.0 L 0.03-0.44 ABSOLUTE LYMPHOCYTES 0.8 L 1.0-3.2 ABSOLUTE MONOCYTES 0.9 0.3-1.1 ABSOLUTE GRANULOCYTES 14.0 H 2.2-7.6 ABSOLUTE NRBC 0.00 0-0 Jul 07, 2021 [facility] MICROALBUMIN/CREATININE RATIO S pecimen Type: URINE 11:03 AM CLINIC PANEL Comment: Tests performed on Take the Interview (405) SN:[id number] Ordering Provid er: BRENDA SANCHEZ Report Released Date/Time: May 20, 2021 10:59 AM Reporting Lab: [facility] [address] [facility] [address] Performing Lab: [facility] [address] [facility] [address] CREATININE (URINE,RANDOM) 48.4 MICROALBUMIN, QUANTITATIVE 3.6 0.0 -29.9 MICROALBUMIN/CREATININE RATIO 74.4 H 0.0-29.9 Jul 07, 2021 [facility] URINALYSIS W/REFLEX Specimen Type: URINE 11:03 AM TO CULTURE No comment enter ed. Ordering Provid er: BRENDA SANCHEZ Report Released Date/Time: May 20, 2021 10:59 AM Reporting Lab: [facility] [address] [facility] [address] Performing Lab: [facility] [address] [facility] [address] URINE COLOR Yellow YELLOW SPECIFIC GRAVITY 1.008 1.003-1.030 UROBILINOGEN <2.0 <2.0 URINE BILIRUBIN NEG NEG URINE KETONES NEG NEG URINE GLUCOSE NEG NEG PROTEIN, URINE NEG NEG URINE PH 6.0 5-8 CLARITY CLEAR Clear URINE BLOOD NEG NEG NITRITE, URINE NEG NEG WBC SCREEN NEG NEG Social History: Smoking Status (Most current) and Tobacco Use (All prior to encounter date) This section includes the most current, and the historical, smoking and tobacco-related health factors from the [place] facility where the Encounter took place.Current Smoking Status This section includes the most current smoking, or tobacco-related health factor, from the [place] facility where the Encounter took place. Date/Time Current Smoking Status Comment [facility] Nov 16, 2020 10:30 AM VA-TOBACCO FORMER USER [facility] Tobacco Use History This section includes a history of the smoking, or tobacco- related health factors, that were collected on or before the date of the Encounter. The data comes from the [place] facility where the Encounter took place. Date/Time Smoking Status/Tobacco Use Comment [facility] Nov 16, 2020 10:30 AM VA-TOBACCO QUIT 15 YRS OR MORE [facility] September 06, 2018 11:34 AM VA-TOBACCO FORMER USER [facility] September 06, 2018 11:34 AM VA-TOBACCO QUIT 15 YRS OR MORE [facility] Advance Directives: All historical and current Section Date Range: From patient's date of to the date document was created. This section includes ALL of a patient's completed or amended [place] Advance and Rescinded Directives. The entries below indicate that a directive exists for the patient, but an actual copy is not included with this document. The data comes from all [place] facilities. Date Advance Directives Provider Source Apr 06, 2010 ADVANCE DIRECTIVE [facility] Encounter Notes: All associated encounter notes This section contains the clinical notes associated to the Encounter. Date/Time Encounter Note(s) Provider Source Jun 29, 2021 09:37 AM NONVA MEDICATION MGT NOTE: REGINA SANCHEZ [facility] LOCAL TITLE: Prescription Slip for NonVA Pharma cy PHINE STANDARD TITLE: NONVA MEDICATION MGT NOTE DATE OF NOTE: JUN 29, 2021@09:37 ENTRY DATE: JUN 29, 2021@09:37:21 AUTHOR: JOCELYN SANCHEZ EXP COSIGNER: URGENCY: STATUS: COMPLETED Prescription Slip for NonVA Pharmacy Has AD PELON [facility] [address] [place] [address] Patient: Date: JUN 29, 2021 RUPERT SERNA [address] [place] [place] [id number] :Oct Medication: Prednisone 40mg x5 days -> 20mg x2 d ays -> 10mg x2 days -> 5mg x2 Quantity: 54 Sig: Take as directed (distribute 54 tablets of 5mg) Refills: 0 Substitution Permitted NPI # [id number] TRAVIS Bruno Sanchez MD Jun /es/ Date VIVINAA SANCHEZ MD Staff Physician 06/29/2021 ADDENDUM STATUS: COMPLETED Please send to [facility] with voucher. /almaz/ VIVIANA SANCHEZ MD Staff Physician Signed: 06/29/2021 09:42 Receipt Acknowledged By: 06/29/2021 09:47 /almaz/ OLIVER SAUCEDA 06/29/2021 ADDENDUM STATUS: COMPLETED Printed and faxed with voucher to [facility] /chip SAUCEDA Signed: 06/29/2021 09:49
--- OUTSIDE RECORDS SUMMARY | 2021-12-31 12:54 | XMS_ITS | Encounter Summary ---
:1945 Author Organization [facility] Address [facility] [place] [address] Care Team Providers Name Role Phone None Primary Care Provider Unavailable Reason for Visit Reason Comments Wrist Injury Encounter Details Date Type Department Care Team Description 12/23/2021 Emergency Emergency Department Ayla Castano MD [facility] [place] [address] Closed fracture of Cecelia Culpcock Bahman Holden MD [facility] [place] [address] distal end of [facility] radius, unspecified [facility] fracture morphology, [place] [address] Social History Tobacco Use Types Packs/Day Years Used Date Never Assessed Sex Assigned at Date Recorded Not on file documented as of this encounter Last Filed Vital Signs Vital Sign Reading Time Taken Comments Blood Pressure 136/82 12/23/2021 11:00 AM EDT Pulse 83 12/23/2021 11:00 AM EDT Temperature 36.6 ??C (97.9 ??F) 12/23/2021 5:03 AM EDT Respiratory Rate 23 12/23/2021 11:00 AM EDT Oxygen Saturation 92% 12/23/2021 8:00 AM EDT Inhaled Oxygen Concentration - - Weight - - Height - - Body Mass Index - - documented in this encounter Discharge Instructions Discharge InstructionsMadelyn Lizama MD - 12/23/2021 10:44 AM EDT You were seen in the emergency room due to a wrist fracture. You were seen by orthopedics who reduced and splinted your wrist. You are being discharged with planto follow-up with them as scheduled in their clinic. You should rest, ice, elevate your arm is much as possible and take Tylenol or ibuprofen for discomfort. Please call Orthopedics to schedule an appointment. If you experience any new or worsening symptoms including numbness, weakness, extreme pain, difficulty breathing or any other concerns please seek medical care right away. Patient InstructionsJacinto Del Rio MD - 12/23/2021 9:39 AM EDT Orthopaedic Home Care Instructions Care of Your Broken Bone Below are general guidelines to follow after treatment for a fracture. We will give you more specific instructions depending on the type and location of your injury. You will need to be aware that these guidelines are only general, each person???s recovery may vary. If you have any questions after reading this sheet, please call us. 1. Injury: R distal radius fx 2. Activity Weightbearing status: Non-weight bearing in the right upper extremity. Keep your cast/splint clean and dry. For the first 72 hours, keep your injured extremity raised as much as possible. You may sit in a chair or in bed with your injured extremity raised above the level of the heart (???toes above the nose?? for a leg injury). Use blankets and/or pillows to help. You may leave the bed or chair to use the bathroom or to eat. DO NOT allow the injured extremity to dangle or excessive swelling and pain will develop. Use ice over the injured extremity for about 72 hours - at least 3-4 times per day for 20 minutes libia time. You can use a simple plastic bag with ice (double the bag!) and place the bag over the injured extremity. Ice is effective even through the casts. Days 4-7, you may increase activities but only do what is absolutely necessary! You will have less pain and swelling if you CONTINUE TO RAISE YOUR INJURED EXTREMITY. Too much activity will result in discomfort and swelling, and may slow healing. You will be much happier later if you follow activity res trictions. Less is better for the first week! You CAN NOT drive while on narcotic pain medications. In addition, you cannot drive if you are in a cast, splint, or sling. In order to supplement your bone density we recommend you consider taking Calcium Carbonate (Tums) 1,000 mg twice daily and Cholecalciferol (Vitamin D3) 1,200U once daily. Please consult your primary care provider to ensure these medications don't interfere with any of your current medications of medical problems. Vitamin C has been shown to decrease the incidence of disproportionate pain associated with wrist fractures. We recommend you consider taking Vitamin C 500 mg once daily for 50 days to help prevent this complication. Please consult your primary care provider to ensure this medication doesn't interferewith any of your current medications or medical problems. In order to avoid hand stiffness, a common and functionally disabling complication of wrist fractures, we suggest you begin early and regular finger range of motion exercises. 3. Prescriptions: We recommend 1,000 mg of Tylenol (acetaminophen) every 6-8 hours for the next 7- 10 days. You may take up to 4000 mg of tylenol daily. You should not exceed 4,000 mg daily. This recommendation is in thesetting of a healthy liver. If you are concerned about the health of your liver or have other questions, please discuss with your primary care physician. You should find yourself needing less and less pain medication after the first few days. Take your pain medicine as directed. Take any of your other usual medicines as directed. 4. Please contact us if: You have excessive swelling. Typically you have not kept the injured extremity raised high enough. If the swelling does not go down after raising the injured extremity above the heart for 3 to 4 hours,call the clinic or come to the emergency department. You feel excessive pain or your injured extremity becomes numb. Again, this usually happens when theinjured extremity is not raised high enough. If the pain does not lessen after 3 to 4 hours of strict elevation, call the clinic. Your cast/splint is too tight. Follow the instructions about raising the extremity. If you have any questions or concerns, please call the following: - Orthopaedic Clinic Monday thru Monday 8am - 5pm: [phone] - Orthopaedic Physician consulting database administrator - After 5pm and Weekends: [phone] 5. Follow-Up Appointments: Please call the office at [phone] to verify your post fracture appointment, typically the following day or Monday if you injure yourself over the weekend. You will need to have x-rays prior to your follow-up appointment. Please come to Radiology, desk 3T,1 hour BEFORE that appointment for those x-rays. Your care today was provided by Jacinto Del Rio MD Follow up in 5-7 days will be arranged in the following orthopaedic clinic Orthopaedic Clinic: [phone] documented in this encounter Medications at Time of Discharge [...] TABLET BÁRBARA documented as of this encounter ED Notes Madelyn Lizama MD - 12/23/2021 9:51 AM EDT ED RESIDENT FOLLOW-UP NOTE: Time of transfer of care: 0600 Care transferred from: Dr. Merlos Condition at time of transfer: stable Clinical Summary: 76 y.o. old male in the process of being evaluated for wrist injury. Please see Dr. Arceo notes for initial evaluation, assessment and plan. Briefly, ED Course as of 12/23/21 1005 Hanna Dec 23, 2021 0614 76 y/o m transferred from [place] for R distal radius/ulnar styloid fracture. Pending ortho consult. - f/u ortho Subsequent ED Course: - Ortho reduced and splinted - d/c with ortho f/u Madelyn Lizama MD Resident 12/23/21 1453 Associated attestation - Bahman Holden MD - 12/24/2021 3:41 PM EDT ED ATTENDING ATTESTATION The patient was seen in conjunction with the resident physician. I have independently performed the sepulveda portions of the history and physical exam. I have personally reviewed nursing notes, vital signs,and diagnostic studies including labs, imaging studies and EKGs. I have discussed the details of the case with the resident and agree with the assessment and plan as described in the resident's note, unless stated otherwise in my separate note. Did this case involve critical care? No Linda Merlos MD - 12/23/2021 8:18 AM EDT Shreyas Jorgensen is an 76 y.o. male who presents to the ED with: Chief Complaint Patient presents with ??? Wrist Injury HPI Shreyas Jorgensen is a 76 y.o. male with a PMH significant for gout and A. fib on AC, who presentsto the Emergency Department as a transfer from the [place] for orthopedic management of a right wrist fracture. Patient states that approximately 11 PM he was try to put a jacket on and lost his footing. Hefell on an outstretched left hand. He had immediate pain in the hand and was brought to the [place] emergency department. There he had x-rays which showed a distal radius fracture with possible ulnar styloid fracture as well. Patient was transferred here for orthopedic management. Denies numbness or tingling in the arm. States he is in 10/10 pain. Medications, allergies, past medical history, surgical history, family history, and social history were reviewed Patient was evaluated and discussed with Dr. Castano Review of Systems: Pertinent positives and negatives are included in the HPI, otherwise at least ten systems were reviewed and negative. ED Triage Vitals [12/23/21 0503] BP: (!) 177/100 Heart Rate: 86 Resp: 22 Temp: 36.6 ??C (97.9 ??F) Temp src: Oral SpO2: 96 % O2 Device: RA O2 Flow Rate (L/min): n/a Physical Exam: General: Well-appearing HEENT: Normocephalic and atraumatic. Extraocular movements intact. Cardiovascular: Regular rate. Well perfused. Pulmonary: Non labored breathing. No audible wheezing. Abdominal: No obvious distention. Musculoskeletal: Right forearm placed in a splint with Johnny bandage and sling. Patient able to move fingers. No pain palpated at the elbow or shoulder. Sensation intact in fingertips exposed in the splint. Skin: No visible rashes or lacerations. Neurologic: No focal deficits Psychiatry: Mood appropriate - Medications and fluids administered: Medications oxyCODONE (Roxicodone) tablet 5 mg (5 mg Oral Given 12/23/21 0608) - I have reviewed imaging, which is significant for: XR Wrist 3 Views Right Final Result * Distal radius fractures as described above. * Suspected nondisplaced fracture of the ulnar styloid. Thank you for letting us participate in the care of this patient. If you are a health care provider and have any questions regarding this report, please contact the number below. For patients who have questions please contact the health medicare nurse that requested your imaging first. Electronically signed by: Shelly Moore MD, [facility] ([phone]), at 12/23/2021 6:07 AM XR Fluoro No Rad <1Hr - OR Use (Results Pending) Assessment and Plan: MDM: 76 y.o. male who presents for orthopedic management of right forearm fracture. Neurovascularly intact beyond the injury. [facility] Repeat x-rays ordered and showed a impacted distal radius fracture with dorsal angulation. Patient was given p.o. oxycodone for pain control. Orthopedics was paged for reduction. This patient was signed out at the end of my shift in stable condition pending orthopedic evaluation. Linda Merlos MD Resident 12/23/21 0821 Associated attestation - Jie Castano MD - 12/28/2021 2:55 AM EDT ED ATTENDING ATTESTATION NOTE The patient was seen in conjunction with the resident physician. I have independently performed the sepulveda portions of the history and physical exam. I have reviewed the nursing notes, vital signs, and all diagnostic studies personally including labs, imaging studies and EKGs. I have discussed the details of the case with the resident and agree with the assessment and plan as described in the resident note above unless noted otherwise below. Maria Del Rosario Kohli RN - 12/23/2021 5:10 AM EDT Assumed care of the patient at this time. Patient resting comfortably on stretcher. Family member, , at bedside. Patient denies further needs at this time. Call dunn within reach. documented in this encounter Miscellaneous Notes Consult Note - Jacinto Del Rio MD - 12/23/2021 8:47 AM EDT Orthopaedic Surgery Consult Note Attending: Dr. Mccarty We are seeing Shreyas Jorgensen at the request of Jie Castano MD. Paged: 7:00am Evaluated: 8:30am Chief Complaint: Right wrist pain History of Present Illness: Shreyas Jorgensen is a 76 y.o. 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 Patient states that approximately 11 PM he was try to put a jacket on and lost his balance, falling onto outstretched R hand. Pt denies any other injuries. Patient denies numbness, tingling, weakness, head strike, LOC. Past Medical History: There is no problem list on file for this patient. Past Surgical History: No past surgical history on file. No Known Allergies No current facility-administered medications on file prior to encounter. No current outpatient medications on file prior to encounter. Family History: Negative for bleeding/clotting disorders or anesthetic complications. Social History: Social History Occupational History ??? Not on file Tobacco Use ??? Smoking status: Not on file ??? Smokeless tobacco: Not on file Substance and Sexual Activity ??? Alcohol use: Not on file ??? Drug use: Not on file ??? Sexual activity: Not on file Review of Systems: As per HPI, otherwise negative Objective: Temp: [36.6 ??C (97.9 ??F)] Heart Rate: [86-87] Resp: [18-22] BP: (157-177)/(100-105) SpO2: [95 %-96 %] Heart Rate from SpO2: [89 bpm] Physical Exam General: awake/alert, responds to questions HEENT: normocephalic, atraumatic CVS: regular rate, no m/r/g Pulm: non-labored breathing, CTAB Skin: Intact Psych: Nl mood and affect Right Upper Extremity Exam: Moderate edema and ecchymosis over wrist No effusion in shoulder / elbow Diffusely TTP over wrist; no TTP clavicle, shoulder, humerus, elbow, forearm, hand Painful but intact range of motion of wrist; painless range of motion of shoulder / elbow / fingers Sensation intact to light touch in Ax/M/R/U/LABC distributions Motor intact shoulder abduction, elbow flexion/extension, wrist flexion/extension, lawn care professional, EPL, AIN, IO Brisk capillary refill distally 2+ radial pulse Left Upper Extremity Exam: No ecchymosis, erythema, or overlying skin changes No effusion in shoulder / elbow / wrist No TTP clavicle, shoulder, humerus, elbow, forearm, wrist, hand Painless range of motion of shoulder / elbow / wrist / fingers Sensation intact to light touch in Ax/M/R/U/LABC distributions Motor intact shoulder abduction, elbow flexion/extension, wrist flexion/extension, lawn care professional, EPL, AIN, IO Brisk capillary refill distally 2+ radial pulse Imaging: Xray right wrist (12/23/21): Radiographs demonstrate dorsally displaced distal radius fracture Procedures: Closed reduction and casting/splinting After a discussion pertaining to the risks and benefits of closed reduction and casting, the patientelected to proceed. Per the [facility] Bed Side Check List: the patient was identified with 2 identifiers,the proper procedure and laterality were confirmed, and I reviewed the patient's allergies. A hematoma block with 8cc of 1% lidocaine w/o epinephrine was administered. A reduction maneuver was performed and confirmed with mini c-arm fluoroscopy. A sugartong splint was applied. Patient tolerated the procedure well. Post-reduction imaging studies were obtained and found to be adequate. Assessment/Plan: 76 y.o. RHD male PMHx gout, CVAx2, A fib on Eliquis who presents with a right distal radius fracture. Following confirmatory imaging, the patient underwent closed reduction and splinting in the ED. Post-reduction radiographs demonstrate satisfactory alignment. Patient can be discharged from the ED and will be contacted by the orthopaedic clinic to follow-up in 5-7 days with repeat radiographs. Please supply patient with sling to be used for comfort for the RUE - Activity: NWB RUE - Medications: tylenol, vitamin C - Imaging needed: none - Follow-up: 5-7 days with x-rays in cast/splint prior to appt Jacinto Del Rio MD Orthopaedic Surgery Pager: [phone] ED Triage - Maria Del Rosario Kohli RN - 12/23/2021 5:04 AM EDT Patient fell from standing around 2330 on 12/22/21. Pt denies LOC, hitting head or dizziness. States he lost balance while trying to put on jacket. Endorses tingling of right extremity and is taking Eliquis. [facility] and [facility] the patient here for ortho. Patient was recently discharged from the hospital for gout. Pt speaking in clear, logical and full sentences. Respiratory rate regular and unlabored. Skin appropriate color, warm and dry. Alert & oriented x4 HPI (Adult) Stated Reason for Visit: Pt fell from standing around 1130, [facility] and sent here for Ortho History Obtained From: patient, family documented in this encounter Plan of Treatment Upcoming Encounters Date Type Specialty Care Team Description 01/12/2022 Appointment Radiology Shorty Chavez MD [facility] DR ORTHOPAEDIC SURG [place], [place] [address] (Wo rk) 01/12/2022 Office Visit Orthopaedics Rody Sheridan PA [facility] DR ORTHOPAEDIC SURG [place], [place] [address] (Wo rk) 01/12/2022 Office Visit Orthopaedics documented as of this encounter Procedures Procedure Name Priority Date/Time Associated Diagnosis Comme nts XR FLUORO NO RAD STAT 12/23/2021 10:06 AM Resu lts for this <1HR - OR USE EDT procedure are in the results section. XR WRIST 2 VIEWS STAT 12/23/2021 10:05 AM Resu lts for this RIGHT EDT procedure are i n the results section. XR WRIST 3 VIEWS STAT 12/23/2021 6:01 AM Resul ts for this RIGHT EDT procedure are i n the results section. documented in this encounter Results XR Fluoro No Rad <1Hr - OR Use (12/23/2021 10:06 AM EDT) Specimen (Source) Anatomical Location Collection Method / Collectio n Time Received Time / Laterality Volume Narrative Dicom, Auditing User - 12/23/2021 10:07 AM EDT This exam is auto-finalizing. No interpr etation was done. Jie Castano MD IMG FLUORO ORDERABLES XR Wrist 2 views Right (12/23/2021 10:05 AM EDT) Anatomical Region Laterality Modality Hand, Wrist Right Digital Radiography Specimen (Source) Anatomical Location Collection Method / Collectio n Time Received Time / Laterality Volume Impressions 12/23/2021 11:03 AM EDT Status post splint reduction of extra-articular right distal radius fracture with congruent joints. Thank you for letting us participate in the care of this patient. ??If you are a health care provider and have any questi ons regarding this report, please contact the number below. ??For patients who have questions please contact the health medicare nurse that requested your imaging first. ? Electronically signed by: Sanjana duron MD, [facility] ([phone]), at 12/23/2021 11:03 AM Narrative 12/23/2021 11:03 AM EDT EXAMINATION: XR WRIST 2 VIEWS RIGHT CLINICAL HISTORY: s/p R distal radius fr acture reduction TECHNIQUE: PA and cross table portable lateral ??vi ews RIGHT wrist in splint COMPARISON: Radiographs and fluoroscopy same day FINDINGS: The extra-articular distal radius fractu re has minimal impaction and approximately 2 mm dorsal displacement. Radial tilt and ulnar variance are neutral. Joints remain congruent. Possible widening of scapholunate interv al. No other displaced fracture or joint malalignment is seen. Procedure Note Sanjana Moyer MD - 12/23/2021Forma tting of this note might be different from the original. EXAMINATION: XR WRIST 2 VIEWS RIGHT CLINICAL HISTORY: s/p R distal radius fr acture reduction TECHNIQUE: PA and cross table portable lateral view s RIGHT wrist in splint COMPARISON: Radiographs and fluoroscopy same day FINDINGS: The extra-articular distal radius fractu re has minimal impaction and approximately 2 mm dorsal displacement. Radial tilt and ulnar variance are neutral. Joints remain congruent. Possible widening of scapholunate interv al. No other displaced fracture or joint malalignment is seen. IMPRESSION Status post splint reduction of extra-ar ticular right distal radius fracture with congruent joints. Thank you for letting us participate in the care of this patient. If you are a health care provider and have any questi ons regarding this report, please contact the number below. For patients w ho have questions please contact the health medicare nurse that requested your imaging first. Electronically signed by: Sanjana duron MD, [facility] ([phone]), at 12/23/2021 11:03 AM Bahman Holden MD IMG DX ORDERABLES XR Wrist 3 Views Right (12/23/2021 6:01 AM EDT) Anatomical Region Laterality Modality Right Digital Radiography Specimen (Source) Anatomical Location Collection Method / Collectio n Time Received Time / Laterality Volume Impressions 12/23/2021 6:07 AM EDT * ??Distal radius fractures as described above. * ??Suspected nondisplaced fracture of t he ulnar styloid. Thank you for letting us participate in the care of this patient. ??If you are a health care provider and have any questi ons regarding this report, please contact the number below. ??For patients who have questions please contact the health medicare nurse that requested your imaging first. ? Narrative 12/23/2021 6:07 AM EDT EXAMINATION: XR WRIST 3 VIEWS RIGHT CLINICAL HISTORY: fall TECHNIQUE: 3 views RIGHT wrist COMPARISON: None FINDINGS: Overlying splint obscures osseous and so ft tissue details. Mildly comminuted transverse fracture of the distal radius with 4 mm impaction and 5 mm dorsal displacement. Suspected nondisplaced fra cture of the ulnar styloid. No definite intra-articular extension. No dislocatio n. No soft tissue gas. Vascular calcifications. Procedure Note Andrew Moore MD - 12/23/2021Formattin g of this note might be different from the original. EXAMINATION: XR WRIST 3 VIEWS RIGHT CLINICAL HISTORY: fall TECHNIQUE: 3 views RIGHT wrist COMPARISON: None FINDINGS: Overlying splint obscures osseous and so ft tissue details. Mildly comminuted transverse fracture of the distal radius with 4 mm impaction and 5 mm dorsal displacement. Suspected nondisplaced fra cture of the ulnar styloid. No definite intra-articular extension. No dislocatio n. No soft tissue gas. Vascular calcifications. IMPRESSION * Distal radius fractures as described a matilde. * Suspected nondisplaced fracture of the ulnar styloid. Thank you for letting us participate in the care of this patient. If you are a health care provider and have any questi ons regarding this report, please contact the number below. For patients w ho have questions please contact the health medicare nurse that requested your imaging first. Jie Castano MD IMG DX ORDERABLES documented in this encounter Visit Diagnoses Diagnosis Closed fracture of distal end of right r adius, unspecified fracture morphology, initial encounter documented in this encounter Administered Medications Inactive Administered Medications - up to 3 most recent administrations Medication Order MAR Action Action Date Dose Rate Site oxyCODONE (Roxicodone) tablet 5 mg Given 12/23/2021 6:08 AM EDT 5 mg 5 mg, Oral, ONCE, 1 dose, On Hanna 12/23/21 at 0527, STAT documented in this encounter Active and Recently Administered Medications Times are shown in EDT. Scheduled Medication Order 12/21/2021 12/22/2021 12/23/2021 oxyCODONE (Roxicodone) tablet 5 mg (COMPLETED) 0608 (Given - Provider: Maria Del Rosario Kohli RN) 5 mg, Oral, ONCE, 1 dose, On Hanna 12/23/21 at 0527, STAT documented in this encounter Care Teams Floor Polisher Relationship Specialty Start Date End Date None PCP - General 12/23/21 12/28/21 None documented as of this encounter
--- OUTSIDE RECORDS SUMMARY | 2021-12-31 12:55 | XMS_ITS | Encounter Summary ---
:1945 Author Organization [facility] Address [address] [place] [id number] Support Name Relationship Address Phone CATHERINE SERNA Unavailable [address] [phone] [place] [address] COLEMAN, DAUGHTER Unavailable Unavailable Insurance Providers: All [...] MEDICARE MEDICARE PART Oct 22, PART A [id number] DAVIGN ON, PATIENT (WNR) (M) A 2011 UP35 1 RUPERT MEDICARE MEDICARE PART Oct 22, PART A [id number] [phone] WILIAMIGN ON, PATIENT (WNR) (M) A 2011 [id number] 00 RUPERT Selected Encounter This section includes the information on record at ME for the Encounter. Date/Time Encounter Type Encounter Description Reason Provider Source Dec 21, 2021 02:13 Outpatient Encounter PRIMARY CARE/MEDICINE PM [facility] Encounter Template Text not used by ME Plan of Treatment: Future Appointments (+ 6 months) and Future Tests (+/- 45 days) The Plan of Treatment section includes future care activities for the patient from all [facility] treatmentfacilities. This section includes future appointments and future orders which are active, pending orscheduled.Future Appointments This section includes appointments that were scheduled to occur 6 months from the date of the Encounter, up to a maximum of 20 appointments. The data comes from all [place] treatment facilities. Appointment Date/Time Appointment Type Appointment Facili ty Name Dec 23, 2021 02:04 AM AMBULATORY - MEDICINE [facility] Dec 24, 2021 01:00 PM AMBULATORY - MEDICINE [facility] Dec 28, 2021 02:30 PM AMBULATORY - MEDICINE [facility] Dec 28, 2021 02:31 PM AMBULATORY - NONE [facility] Jan 18, 2022 11:30 AM AMBULATORY - MEDICINE [facility] May 03, 2022 01:00 PM AMBULATORY - MEDICINE [facility] Active, Pending, and Scheduled Orders This section includes a listing of several types of active, pending, and scheduled orders, including clinic medications orders, diagnostic test orders, procedure orders and consult orders; where the start date of the order is 45 days before the date of the Encounter or 45 days after the date of the Encounter. The data comes from all ME treatment facilities. Test Date/Time Test Type Test Details Facility Name Dec 23, 2021 03:18 AM Consult Order PHYSICAL THERAPY-[facility] Danielle [facility] OUTPT Cons Emergency Room Dec 23, 2021 03:48 AM Consult Order COMMUNITY CARE-ORTHOPEDICS [facility] GENERAL Cons Windows Support Engineer's Choice Social History: Smoking Status (Most current) and Tobacco Use (All prior to encounter date) This section includes the most current, and the historical, smoking and tobacco-related health factors from the ME facility where the Encounter took place.Current Smoking Status This section includes the most current smoking, or tobacco-related health factor, from the ME facility where the Encounter took place. Date/Time Current Smoking Status Comment Facility September 10, 2021 11:25 AM QUIT TOBACCO USE > 7 YEARS AGO [facility] Tobacco Use History This section includes a history of the smoking, or tobacco- related health factors, that were collected on or before the date of the Encounter. The data comes from the ME facility where the Encounter took place. Date/Time Smoking Status/Tobacco Use Comment [facility] Dec 19, 2017 11:42 AM QUIT TOBACCO USE > 7 YEARS [place] Former user of tobacco products quit 27 yrs ago [facility] Oct 26, 2016 09:17 AM QUIT TOBACCO USE > 7 YEARS [place] A[place] [facility] Jan 07, 2016 09:58 AM QUIT TOBACCO USE > 7 YEARS [place] A[place] [facility] September 09, 2008 10:31 AM QUIT TOBACCO USE > 7 YEARS [place] A[place] 8 yrs. [facility] August 29, 2007 08:57 AM QUIT TOBACCO USE 1-7 [place]ARS [place] [facility] Feb 22, 2007 11:44 AM QUIT TOBACCO USE IN PAST [place] YE[place] [facility] August 28, 2006 12:57 PM QUIT TOBACCO USE 1-7 YEARS [place] 5 yrs. ago [facility] August 22, 2005 10:55 AM QUIT TOBACCO USE 1-7 YEARS [place] quit 4 yr ago [facility] August 27, 2004 01:30 PM HISTORY OF SMOKING [place] 12/25 [facility] August 27, 2004 01:30 PM QUIT TOBACCO USE IN PAST W [facility] [place] YEAR 2 years [facility] Dec 19, 2003 01:13 PM QUIT TOBACCO USE IN PAST W [place] YEAR [facility] September 05, 2003 02:45 PM HISTORY OF SMOKING [place] quit 12/25 [facility] September 05, 2003 02:45 PM QUIT TOBACCO USE IN PAST W [place] YEAR quit 12/26 [facility] Mar 27, 2002 11:07 AM CURRENT SMOKER [facility] Pt. smokes 1 ppd. [facility] Mar 14, 2001 03:27 PM CURRENT SMOKER [place] [facility] Advance Directives: All historical and current Section Date Range: From patient's date of to the date document was created. This section includes ALL of a patient's completed or amended [place] Advance and Rescinded Directives. The entries below indicate that a directive exists for the patient, but an actual copy is not included with this document. The data comes from all [place] facilities. Date Advance Directives Provider Source Apr 06, 2010 ADVANCE DIRECTIVE SVETLANA FRANK [place] [facility] Radiology Reports: +/- 30 days of the encounter Radiology Reports For cases when an order for radiology services may have been completed prior to the date of the Encounter, the report list includes the Radiology Reports that were completed up to 30 days before date of the Encounter. For cases when an order for radiology services may have been completed after the date of the Encounter, the report list also includes the Radiology Reports that were completed up to 30days after date of the Encounter. The data comes from all [place] treatment facilities. Date/Time Radiology Report Provider Source Dec 28, 2021 06:25 PM UNLISTED COPIES FOR OUTSIDE REFERRAL: DM [facility] RUPERT SERNA [id number] -1945 M [facility] Exm Date: DEC 28, 2021@18:25 Req Phys: GOLDY BRASHER Loc: [facility] MISC GEN XRAY B1RC (Req'g Img Loc: OUTSIDE GENERAL RADIOLOGY Service: Unknown (Case [id number] COMPLETE) UNLISTED COPIES FOR OUTSIDE REFER(RAD Detailed) CPT:98890 Reason for Study: UNLISTED COPIES FOR OUTSIDE R EFERRAL Clinical History: UNLISTED COPIES FOR OUTSIDE REFERRAL. REQUESTED BY [facility]. [id number]. SENT BY JEFF TO [facility] 12/29/21 Report Status: Electronically Filed Date Report ed: Report: Copies (CD) made for outside facility. Impression: Copies (CD) made for outside facility Primary Diagnostic Code: VERIFIED BY: / *ELECTRONICALLY FILED* Dec 23, 2021 02:18 AM WRIST 3 VIEWS (ROUTINE): RADIOLOGY,OUTSIDE [facility] RUPERT SERNA [id number] -1945 M SERVICE [facility] Exm Date: DEC 23, 2021@02:18 Req Phys: KOSTA PHILLIP Loc: [facility] M1RD (Req'g Loc) Img Loc: XRAY (OOS) Service: Unknown (Case [id number] COMPLETE) WRIST 3 VIEWS (ROUTINE) (RAD Detailed) CPT:91758 Proc Modifiers : RIGHT Reason for Study: distal ulna pain after fall Clinical History: Report Status: Verified Date Reported: DEC 23, 2021 Date Verified: DEC 23, 2021 Senior Resident Care Director E-Sig: Report: WRIST 3 VIEWS (ROUTINE) HISTORY: distal ulna pain after fall COMPARISON: 09/23/2016 right hand radiographs TECHNIQUE: 4 view(s) of the right wrist, submit berhane to the [place] National Teleradiology Program (NTP) for interp retation. FINDINGS: There is a mildly displaced acute fracture of t he distal right radius with mild impaction and dorsal displacem ent/angulation of the main distal fragment. There is a mildly displaced acute fracture of t he ulnar styloid process. No evidence of dislocation. Osteopenia. Mild de generative changes. Mild widening of the scapholunate join t space. Vascular atherosclerotic calcifications. Soft t issue swelling. No radiopaque foreign body identified. Impression: 1. Acute fractures of the distal right radius a nd ulnar styloid process. 2. Mild widening of the scapholunate joint spac e suspicious for scapholunate ligament injury/tear. READING PHYSICIAN: Hansel Powell -[phone] 12/22/2021 20:56 [facility] National Teleradiology Program [phone] (For Medical Practitioner Use Only ) Attention Patients / Veterans: If you have ques tions or concerns about these test results, please contact your o rdering provider or primary care team. Primary Diagnostic Code: SIGNIFICANT ABNORMALIT Y, ATTN NEEDED Primary Interpreting Staff: RADIOLOGY,OUTSIDE SERVICE, Staff Physician / Encounter Notes: All associated encounter notes This section contains the clinical notes associated to the Encounter. Date/Time Encounter Note(s) Provider Source Dec 21, 2021 02:27 PM ADMINISTRATIVE NOTE: ODILON BATRES [facility] LOCAL TITLE: BENEFICIARY TRAVEL (BT) STANDARD TITLE: ADMINISTRATIVE NOTE DATE OF NOTE: DEC 21, 2021@14:27 ENTRY DATE: DEC 21, 2021@14:27:46 AUTHOR: ODILON BATRES EXP COSIGNER: URGENCY: STATUS: COMPLETED BENEFICIARY TRAVEL SPECIAL MODE TRANSPORTATION: I have informed the [facility] that, requests with insufficient evidence of functional need, containing information that ap pears inconsistent with clinical evidence or appears intentionally exag gerated to obtain eligibility will be referred for further review or returned for additional information or clarification. Point of Contact's E-mail: Phone/Pager/Extension: MEDICAL JUSTIFICATION [facility] is not able to transfer into a private vehicle or medically appropriate common carrier, or requires additio nal assistance as outlined below. The clinical condition requiring the use of VA Special Mode transportation to be safely transported are as follows: Severe deconditioning or functional limitation precluding private transportation with assistance This request is not for an inter-facility trans norris Date travel is to commence: Nov supervisor rough end time (if needed): Estimated time frame will require trans portation: 1 Year To and from all authorized VA and Non-VA care Frequency: Round Trip /es/ ODILON BATRES DJuan CarlosOJuan Carlos Signed: 12/21/2021 14:31 Dec 21, 2021 02:13 PM NONVA MEDICATION MGT NOTE: ODILON BATRES [facility] LOCAL TITLE: Prescription Slip for NonVA Pharma cy STANDARD TITLE: NONVA MEDICATION MGT NOTE DATE OF NOTE: DEC 21, 2021@14:13 ENTRY DATE: DEC 21, 2021@14:13:35 AUTHOR: ODILON BATRES EXP COSIGNER: URGENCY: STATUS: COMPLETED Prescription Slip for NonVA Pharmacy Has AMY BIRD [facility] [address] [address] Patient: Date: DEC 21, 2021 RUPERT SERNA [address] [place] [address] :Oct Medication: prednisone 5 mg oral tab Quantity: 54 tabs Sig: take 40mg x 5 days, then 20 mg x 2 days, t hen 10 mg x 2 days, then 5 mg x 2 days Refills: 0 Substitution Permitted NPI # [id number] TRAVIS # Electronically signed by Odilon Batres D.O. Dec 21, 2021 /es/ ODILON BATRES D.O. 12/21/2021 ADDENDUM STATUS: COMPLETED pls fax to [facility] w/ glo. /es/ ODILON BATRES D.O. Signed: 12/21/2021 14:16 Receipt Acknowledged By: 12/21/2021 14:22 /es/ SARAH DUPONT REGISTERED NURSE 12/21/2021 14:26 /es/ TONY DANGELO 12/21/2021 ADDENDUM STATUS: COMPLETED Called and spoke with spouse. Aware to fish bait picker script at [facility]. Nurse phone rtc placed for Monday. Plan to follow up in Acute clinic on Monday aft er discussing with covering provider (closed on Monday for Labor Day). /almaz/ SARAH DUPONT REGISTERED NURSE Signed: 12/21/2021 14:21 12/21/2021 ADDENDUM STATUS: COMPLETED printed faxed with voucher Kenny /almaz/ TONY SANCHEZ AMSA Signed: 12/21/2021 14:25
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
--- OUTSIDE RECORDS SUMMARY | 2021-12-31 12:55 | XMS_ITS | Encounter Summary ---
:1945 Author Organization [facility] Address [address] [place] [id number] Support Name Relationship Address Phone CATHERINE SERNA Unavailable [address] [place] [address] COLEMAN, DAUGHTER Unavailable Unavailable Insurance Providers: All [...] MEDICARE MEDICARE PART Oct 22, PART A [id number] DAVIGN ON, PATIENT (WNR) (M) A 2011 UP35 1 [place]UP[place] MEDICARE MEDICARE PART Oct 22, PART A [id number] [phone] WILIAMIGN ON, PATIENT (WNR) (M) A 2011 52A 00 RUPERT Selected Encounter This section includes the information on record at [place] for the Encounter. Date/Time Encounter Type Encounter Description Reason Provider Source Nov 05, 2021 02:13 Outpatient Encounter ADMIN PAT ACTIVTIES PM (NEELACT) IHE Encounter Template Text not used by [place] Plan of Treatment: Future Appointments (+ 6 [...] 20 appointments. The data comes from all [place] treatment facilities. Appointment Date/Time Appointment Type Appointment Facili ty Name Dec 23, 2021 02:04 AM AMBULATORY - MEDICINE [facility] Dec 24, 2021 01:00 PM AMBULATORY - MEDICINE [facility] Dec 28, 2021 02:30 PM AMBULATORY - MEDICINE [facility] Dec 28, 2021 02:31 PM AMBULATORY - NONE [facility] Jan 18, 2022 11:30 AM AMBULATORY - MEDICINE [facility] May 03, 2022 01:00 PM [facility] Lab Results: +/- 30 days of the encounter This section includes the Chemistry and Hematology Lab Results on record with [place] for the patient. Radiology Reports and Pathology Reports are provided separately, in subsequent sections.Lab Results This section contains the Chemistry/Hematology Results that were resulted 30 days before or 30 daysafter the date of the Encounter. Date/Time Source Result Type Result - Unit Interpretation Reference Range Comment Oct 21, 2021 10:22 [facility] PHOSPHORUS Specimen T ype: PLASMA AM Comment: Tests performed on [employer] (405) [id number] Ordering Provid er: BRENDA SANCHEZ Report Released Date/Time: Aug 12, 2021 01:20 PM [facility] [address] [address] Performing Lab: [facility] [address] [address] PHOSPHORUS 3.4 2.5-5.0 Oct 21, 2021 10:22 [facility] URIC ACID Specimen T ype: PLASMA AM Comment: Tests performed on [employer] (405) [id number] Ordering Provid er: BRENDA SANCHEZ Report Released Date/Time: Aug 12, 2021 01:20 PM Reporting [facility] [address] [address] Performing Lab: [facility] [address] [address] URIC ACID 5.6 3.3-8.7 Oct 21, 2021 [facility] P4 GLU,BUN,CREAT,LYTES,CA Speci men Type: PLASMA 10:22 AM CLINIC Comment: Tests performed on [employer] (405) [id number] Ordering Provid er: BRENDA SANCHEZ Report Released Date/Time: Aug 12, 2021 01:20 PM Reporting [facility] [address] [address] Performing Lab: [place] [facility] [address] [address] UREA NITROGEN 29 H 7-25 SODIUM 138 135-145 POTASSIUM 4.1 3.5-5.0 CHLORIDE 100 100-110 CARBON DIOXIDE 26 20-30 ANION GAP 12 4-16 GLUCOSE 107 H 65-100 CREATININE 1.29 0.5-1.5 CALCIUM 8.6 8.5-10.5 eGFR(CKD-EPI 2020) 58 L >60 Social History: Smoking Status (Most current) and Tobacco Use (All prior to encounter date) This section includes the most current, and the historical, smoking and tobacco-related health factors from the [place] facility where the Encounter took place.Current Smoking Status This section includes the most current smoking, or tobacco-related health factor, from the [place] facility where the Encounter took place. Date/Time Current Smoking Status Comment Facility September 10, 2021 11:25 AM QUIT TOBACCO USE > 7 YEARS AGO [place] [facility] Tobacco Use History This section includes a history of the smoking, or tobacco- related health factors, that were collected on or before the date of the Encounter. The data comes from the [place] facility where the Encounter took place. Date/Time Smoking Status/Tobacco Use Comment [facility] Dec 19, 2017 11:42 AM QUIT TOBACCO USE > 7 YEARS [place] A[place] Former user of tobacco products quit 27 yrs ago [facility] Oct 26, 2016 09:17 AM QUIT TOBACCO USE > 7 YEARS [place] [facility] Jan 07, 2016 09:58 AM QUIT TOBACCO USE > 7 YEARS [place] A[place] [facility] September 09, 2008 10:31 AM QUIT TOBACCO USE > 7 YEARS [place] A[place] 8 yrs. [facility] August 29, 2007 08:57 AM QUIT TOBACCO USE 1-7 YEARS [place] [facility] Feb 22, 2007 11:44 AM QUIT TOBACCO USE IN PAST [place] YE[place] [facility] August 28, 2006 12:57 PM QUIT TOBACCO USE 1-7 YEARS [place] A[place] 5 yrs. ago [facility] August 22, 2005 10:55 AM QUIT TOBACCO USE 1-7 YEARS [place] A[place] quit 4 yr ago [facility] August 27, 2004 01:30 PM HISTORY OF SMOKING [place] 12/25 [facility] August 27, 2004 01:30 PM QUIT TOBACCO USE IN PAST Deana [place] YEAR 2 years [facility] Dec 19, 2003 01:13 PM QUIT TOBACCO USE IN PAST Deana MYERST YEAR [facility] September 05, 2003 02:45 PM HISTORY OF SMOKING DM [place] JCChristian quit 12/25 [facility] September 05, 2003 02:45 PM QUIT TOBACCO USE IN PAST Deana MYERST YEAR quit 12/26 [facility] Mar 27, 2002 11:07 AM CURRENT SMOKER DM [place] Pt. smokes 1 ppd. [facility] Mar 14, 2001 03:27 PM CURRENT SMOKER DM [place] [facility] Advance Directives: All historical and current Section Date Range: From patient's date of to the date document was created. This section includes ALL of a patient's completed or amended [place] Advance and Rescinded Directives. The entries below indicate that a directive exists for the patient, but an actual copy is not included with this document. The data comes from all [place] facilities. Date Advance Directives Provider Source Apr 06, 2010 ADVANCE DIRECTIVE MONIKASVETLANA [place] J [place] [facility] Encounter Notes: All associated encounter notes This section contains the clinical notes associated to the Encounter. Date/Time Encounter Note(s) Provider Source Nov 05, 2021 02:13 PM ADMINISTRATIVE NOTE: BEVERLEY GIBBS GAIL DIAMOND LOCAL TITLE: Has Admin Note [facility] STANDARD TITLE: ADMINISTRATIVE NOTE DATE OF NOTE: NOV 05, 2021@14:13 ENTRY DATE: NOV 05, 2021@14:14:04 AUTHOR: BEVERLEY GIBBS EXP COSIGNER: URGENCY: STATUS: COMPLETED Reason for call Clinic Name: Called patient to schedule rheumatology appointm ent at [facility]. Patient is very frustrated with his gout, an d is not interested in having his feet shot up, as he states it does not work. Patient refuses to s chedule appointment at this time. /almaz/ BEVERLEY GIBBS Signed: 11/05/2021 14:17
--- OUTSIDE RECORDS SUMMARY | 2021-12-31 12:55 | XMS_ITS | Encounter Summary ---
:1945 Author Organization [facility] Address [address] [place] [id number] Support Name Relationship Address Phone CATHERINE SERNA Unavailable [address] [place] [address] COLEMAN, DAUGHTER Unavailable Unavailable Insurance Providers: All [...] MEDICARE MEDICARE PART Oct 22, PART A [id number] DAVIGN ON, PATIENT (WNR) (M) A 2011 UP35 1 RUPERT MEDICARE MEDICARE PART Oct 22, PART A [id number] [phone] WILIAMIGN ON, PATIENT (WNR) (M) A 2011 [id number] 00 RUPERT Selected Encounter This section includes the information on record at [facility] for the [facility]counter. Date/Time Encounter Type Encounter Reason Provider Source Description Dec 23, 2021 EMERGENCY DEPT EMERGENCY DEPT ICD-10-CM KOSTA PHILLIP 02:04 AM VISIT S62.91XA Unsp J fracture of right wrist and hand, init for clos fx with Provider Comments: Unspecified Fracture of right Wrist and Hand, Initial Encounter for closed Fracture IHE Encounter Template Text not used by [facility] Assessments - Encounter Diagnoses This section includes the primary and secondary diagnoses documented for the Encounter. Date/Time Primary/Secondary Diagnosis Name Provider Source Diagnosis Dec 23, 2021 PRIMARY Unsp fracture of KENJIKOSTA RI GURPREET 03:55 AM right wrist and JCT [facility] hand, init for clos fx Plan of Treatment: Future Appointments (+ 6 months) and Future Tests (+/- 45 days) The Plan of Treatment section includes future care activities for the patient from all [place] [facility]. This section includes future appointments and future orders which are active, pending orscheduled.Future Appointments This section includes appointments that were scheduled to occur 6 months from the date of the Encounter, up to a maximum of 20 appointments. The data comes from all [facility]. Appointment Date/Time Appointment Type Appointment Facili ty Name Dec 24, 2021 01:00 PM AMBULATORY - MEDICINE [facility] Dec 28, 2021 02:30 PM AMBULATORY - MEDICINE [facility] Dec 28, 2021 02:31 PM AMBULATORY - NONE [facility] Jan 18, 2022 11:30 AM AMBULATORY - MEDICINE [facility] May 03, 2022 01:00 PM AMBULATORY - MEDICINE [facility] Active, Pending, and Scheduled Orders This section includes a listing of several types of active, pending, and scheduled orders, including clinic medications orders, diagnostic test orders, procedure orders and consult orders; where the start date of the order is 45 days before the date of the Encounter or 45 days after the date of the Encounter. The data comes from all [facility]. Test Date/Time Test Type Test Details Facility Name Dec 23, 2021 03:18 AM Consult Order PHYSICAL THERAPY-FALL [facility] OUTPT Cons Emergency Room Dec 23, 2021 03:48 AM Consult Order COMMUNITY CARE-ORTHOPEDICS [facility] Cons Hide Buffer's Choice Vital Signs: All taken on the encounter date This section contains inpatient and outpatient Vital Signs collected on the date of the Encounter. Date/Time Temperature Pulse Blood Respiratory SP02 Pain Height Weight Eugenio dy Source Pressure Rate Mass Index Dec 232021 03:17 [facility] Dec 23, 10 2021 02:13 [facility] Dec 23, 97.8 F 102 157/100 20 /min 95 % 10 62 in 216 lb 40 2021 02:09 /min mm[Hg] [facility] Social History: Smoking Status (Most current) and Tobacco Use (All prior to encounter date) This section includes the most current, and the historical, smoking and tobacco-related health factors from the [place] facility where the Encounter took place.Current Smoking Status This section includes the most current smoking, or tobacco-related health factor, from the [place] facility where the Encounter took place. Date/Time Current Smoking Status Comment Facility Dec 23, 2021 02:04 AM LIFETIME NON-TOBACCO USER DM [facility] Tobacco Use History This section includes a history of the smoking, or tobacco- related health factors, that were collected on or before the date of the Encounter. The data comes from the [place] facility where the Encounter took place. Date/Time Smoking Status/Tobacco Use Comment [facility] September 10, 2021 11:25 AM QUIT TOBACCO USE > 7 YEARS [place] [facility] Dec 19, 2017 11:42 AM QUIT TOBACCO USE > 7 YEARS [place] A[place] Former user of tobacco products quit 27 yrs ago [facility] Oct 26, 2016 09:17 AM QUIT TOBACCO USE > 7 YEARS [place] [facility] Jan 07, 2016 09:58 AM QUIT TOBACCO USE > 7 YEARS [place] A[place] [facility] September 09, 2008 10:31 AM QUIT TOBACCO USE > 7 YEARS [place] 8 yrs. [facility] August 29, 2007 08:57 AM QUIT TOBACCO USE 1-7 YEARS [place] [facility] Feb 22, 2007 11:44 AM QUIT TOBACCO USE IN PAST [place] YEAR [facility] August 28, 2006 12:57 PM QUIT TOBACCO USE 1-7 YEARS [place] 5 yrs. ago [facility] August 22, 2005 10:55 AM QUIT TOBACCO USE 1-7 YEARS [place] A[place] quit 4 yr ago [facility] August 27, 2004 01:30 PM HISTORY OF SMOKING [place] 12/25 [facility] August 27, 2004 01:30 PM QUIT TOBACCO USE IN PAST [place] YEAR 2 years [facility] Dec 19, 2003 01:13 PM QUIT TOBACCO USE IN [place]ST [place] YE[place] [facility] September 05, 2003 02:45 PM HISTORY OF SMOKING [place] quit 12/25 [facility] September 05, 2003 02:45 PM QUIT TOBACCO USE IN [place]ST [place] YEAR quit 12/26 [facility] Mar 27, 2002 11:07 AM CURRENT SMOKER [place] Pt. smokes 1 ppd. [facility] Mar 14, 2001 03:27 PM CURRENT SMOKER [place] [facility] Advance Directives: All historical and current Section Date Range: From patient's date of to the date document was created. This section includes ALL of a patient's completed or amended [place] Advance and Rescinded Directives. The entries below indicate that a directive exists for the patient, but an actual copy is not included with this document. The data comes from all [place] facilities. Date Advance Directives Provider Source Apr 06, [address] [facility] Radiology Reports: +/- 30 days of [...] the Encounter. The data comes from all [place] treatment facilities. Date/Time Radiology Report Provider Source Dec 28, 2021 06:25 PM UNLISTED COPIES FOR OUTSIDE REFERRAL: DM COOK LOBO SERNARUPERT SHIVANI [id number] -[id number] [facility] Exm Date: DEC 28, 2021@18:25 Req Phys: GOLDY BRASHER Pat Loc: [facility] MISC GEN XRAY B1RC (Req'g Img Loc: OUTSIDE GENERAL RADIOLOGY Service: Unknown (Case [id number] COMPLETE) UNLISTED COPIES FOR OUTSIDE REFER(RAD Detailed) CPT:48515 Reason for Study: UNLISTED COPIES FOR OUTSIDE R EFERRAL Clinical History: UNLISTED COPIES FOR OUTSIDE REFERRAL. REQUESTED BY [facility]. [id number]. SENT BY JEFF TO [facility] 12/29/21 Report Status: Electronically Filed Date Report ed: Report: Copies (CD) made for outside facility. Impression: Copies (CD) made for outside facility Primary Diagnostic Code: VERIFIED BY: / *ELECTRONICALLY FILED* Dec 23, 2021 02:18 AM WRIST 3 VIEWS (ROUTINE): RADIOLOGY,OUTSIDE DM COOK LOBO WILIAMNEGARRUPERT ÁLVAREZ SHIVANI [id number] -1945 [facility] Exm Date: DEC 23, 2021@02:18 Req Phys: KOSTA PHILLIP Pat Loc: [facility] ED NIGHTS M1RD (Req'g Loc) Img Loc: XRAY (OOS) Service: Unknown (Case [id number] COMPLETE) WRIST 3 VIEWS (ROUTINE) (RAD Detailed) CPT:53790 Proc Modifiers : RIGHT Reason for Study: distal ulna pain after fall Clinical History: Report Status: Verified Date Reported: DEC 23, 2021 Date Verified: DEC 23, 2021 Deputy Fire Chief E-Sig: Report: WRIST 3 VIEWS (ROUTINE) HISTORY: distal ulna pain after fall COMPARISON: 09/23/2016 right hand radiographs TECHNIQUE: 4 view(s) of the right wrist, submit berhane to the [place] National Teleradiology Program (NTP) for interp retation. [...] scapholunate ligament injury/tear. READING PHYSICIAN: Hansel Powell -[phone] 12/22/2021 20:[address] [facility] National Teleradiology Program [phone] (For Medical Practitioner Use Only ) Attention Patients / Veterans: If you have ques tions or concerns about these test results, please contact your [facility] provider or primary care team. Primary Diagnostic Code: SIGNIFICANT ABNORMALIT Y, ATTN NEEDED Primary Interpreting Staff: RADIOLOGY,OUTSIDE SERVICE, Staff Physician / Encounter Notes: All associated encounter notes This section contains the clinical notes associated to the Encounter. Date/Time Encounter Note(s) Provider Source Dec 23, 2021 03:40 AM PHYSICIAN TRANSFER SUMMARIZATION NOTE: KOSTA PHILLIPS [facility] LOCAL TITLE: Interfacility Transfer Form/Physic neeta/Nurse [facility] STANDARD TITLE: PHYSICIAN TRANSFER SUMMARIZATION NOTE DATE OF NOTE: DEC 23, 2021@03:40 ENTRY DATE: DEC 23, 2021@03:41:04 AUTHOR: KOSTA PHILLIP EXP COSIGNER: URGENCY: STATUS: COMPLETED Interfacility Transfer [facility] Form [id number] LIP/ANGELICA (//ROAD MANAGER/PA) Required SECTION I - REASON FOR TRANSFER 1. Nature of services needed by patient requiri ng transfer (Identify): Diagnosis, Other (Specify): right w rist fracture 2. Describe service needed: Orthopedics surgery SECTION II - TYPE AND LEVEL OF SERVICES REQUIRE D 1. Patient presenting symptoms: right wrist felecia n after fall 2. Diagnostic testing completed: exam and xray 3. Diagnosis: distal radius and ulna fracture 4. Description of treatment prior to transfer: Exam, xrays, and volar 4 inch orthoglass splint applied to hand wrist fo rearm. 5. Description of further treatment contemplate d: reduction, possible surgery, and orthopedic care, casting. 6. Level of care prior to transfer (ER, Outpati ent, Saenz, ICU etc.): ER SECTION III - CONDITION OF PATIENT ON TRANSFER 1. Is patient medically stable for transfer: Ye steve Describe: stable, splinted 2. Is patient behaviorally stable for transfer: Yes Describe: yes, cooperative, and alert and orien berhane. The transfer of an unstable patient REQUIRES th e agreement and signature of a physician. Physician who approved of trans norris . SECTION IV - MODE OF TRANSPORTATION 1. Describe mode and level of care required for transport (including facility staff if required): Transport mode: Other: Level of care: driving in personal car 2. Medications or treatments required during tr ansport: none, splint is in place and patient in a sling SECTION V - PATIENT/FAMILY CONSENT RECEIVED Consent for transfer obtained: YES Patient Consent obtained from: Legal guardian/h ealthcare agent signed as patient can't due to splint and sling SECTION - DECISION (To be completed for all non-911 transfers.) Non-911 transfer ACCEPTED Name of accepting LIP/ANGELICA (//ROAD MANAGER/PA) or Poamaya t of Contact: Dr Carlin at [facility] ED Facility patient is being transferred to: Other: [facility] Unit patient to be transferred to: Emergency Contact phone number for accepting LIP/ANGELICA (/ /ROAD MANAGER/PA) or POC: [phone] /es/ KOSTA PHILLIP MD Signed: 12/23/2021 03:45 Dec 23, 2021 03:39 AM PHYSICIAN TRANSFER SUMMARIZATION NOTE: BATOOL VERAS [facility] TITLE: Interfacility Transfer Form/Physic neeta/Nurse [facility] STANDARD TITLE: PHYSICIAN TRANSFER SUMMARIZATION NOTE DATE OF NOTE: DEC 23, 2021@03:39 ENTRY DATE: DEC 23, 2021@03:39:43 AUTHOR: BATOOL TERRELL EXP COSIGNER: URGENCY: STATUS: COMPLETED Interfacility Transfer [facility] Form [id number] RN Collaboration/Handoff SECTION I - DEMOGRAPHIC AND ELIGIBILITY INFORMA RUPERT SUN Social Security No: [id number] Date of : Oct Address: [address] [place] [address] Eligibility for VA care: PRIMARY ELIGIBILTY COD E - NSC, [facility] PENSION Diagnosis at time of transfer: Anticipated date and time of transfer: Eligibility for Travel/special mode: Patient has advanced directive: (If YES, SEND COPY with patient) Name and title of receiving facility contact: SECTION II - MODE OF TRANSPORTATION Describe transportation method and staff requir ements: Medications or other treatments anticipated dur ing transport to receiving facility: SECTION III - INFORMATION TO BE SENT IN PAPER F ORM WITH PATIENT AT TIME OF TRANSFER SECTION IV - SENDING FACILITY CONTACT INFORMATI ON Sending unit: Sending unit contact name: Sending unit phone number: SECTION V - INFECTION/HEALTH INFORMATION Does the patient currently require isolation or precautions? Does the patient have: Does the patient currently have any of the foll owing symptoms? MEDICATION LIST: Active Outpatient Medications (excluding Suppli es): Active Outpatient Medications Status 1) ACETAMINOPHEN 500MG TAB TAKE ONE TABLET BY M OUTH ACTIVE EVERY SIX HOURS NEEDED FOR PAIN 2) ALLOPURINOL 300MG TAB TAKE ONE TABLET BY MILTON TH EVERY ACTIVE DAY FOR GOUT 3) AMLODIPINE BESYLATE 10MG TAB TAKE ONE TABLET BY MOUTH ACTIVE EVERY DAY FOR BLOOD PRESSURE/HEART, DO NOT TAKE WITH GRAPEFRUIT JUICE 4) APIXABAN 5MG TAB TAKE ONE TABLET BY MOUTH EV IVAN ACTIVE TWELVE HOURS TO HELP PREVENT BLOOD CLOTS (ANTICOAGULATION) 5) ATORVASTATIN CALCIUM 80MG TAB TAKE ONE TABLE T BY ACTIVE MOUTH EVERY DAY TO LOWER CHOLESTEROL 6) FOLIC ACID 1MG TAB TAKE ONE TABLET BY MOUTH EVERY DAY ACTIVE VITAMIN/NUTRITION SUPPLEMENT 7) FUROSEMIDE 40MG TAB TAKE ONE TABLET BY MOUTH TWICE A ACTIVE DAY TO REMOVE FLUID/CONTROL BLOOD PRESSURE 8) ISOSORBIDE MONONITRATE 30MG SA TAB TAKE ONE TABLET BY ACTIVE MOUTH EVERY DAY TO PREVENT ANGINA 9) METOPROLOL SUCCINATE 200MG SA TAB TAKE ONE T ABLET BY ACTIVE MOUTH EVERY DAY FOR BLOOD PRESSURE/HEART 10) OMEPRAZOLE 20MG EC CAP TAKE ONE CAPSULE BY MOUTH ACTIVE TWICE A DAY FOR STOMACH ACID (TAKE HALF-HOUR BE FORE A MEAL(S) 11) POTASSIUM CHLORIDE 10MEQ SA TAB TAKE TWO TA BLETS BY ACTIVE MOUTH EVERY DAY TO SUPPLEMENT POTASSIUM Active Non-VA Medications Status 1) Non-VA CAPSAICIN 0.1% CREAM SMALL AMOUNT TOP ICALLY ACTIVE TWICE DAILY NEEDED 12 Total Medications ALLERGIES: Patient has answered NKA Is the patient/resident currently on antibiotic s? NO VACCINES Immunization Series Date Facility Reaction Info COVID-19 (ABIOLA), VECTOR-NR, RS* 1 08/18/2020 [facility] COVID-19 (MODERNA), MRNA, LNP-S,* 2 10/21/2021 [facility]* <C> <C> See the Detailed Immunizations Health Summa ry Component[DIM] for Comments No data available Report provided to: Name/Title: LETA Sumner Contact phone number: Unit at receiving facility: ED Date and time of report: 12/23/2021 03:42 /es/ BATOOL TERRELL Registered Nurse Signed: 12/23/2021 03:43 Dec 23, 2021 03:10 AM EMERGENCY DEPT DISCHARGE NOTE: LINDY PHILLIP T LOCAL TITLE: Emergency Dept Discharge Instructi ons [facility] STANDARD TITLE: EMERGENCY DEPT DISCHARGE NOTE DATE OF NOTE: DEC 23, 2021@03:10 ENTRY DATE: DEC 23, 2021@03:10:28 AUTHOR: KOSTA PHILLIPIGNER: URGENCY: STATUS: COMPLETED DISCHARGE INSTRUCTIONS FOR: MR. RUPERT SERNA [address], [place] [address] DEC 23, 2021 YOUR DIAGNOSIS: right wrist fracture TREATMENT YOU RECEIVED IN THE EMERGENCY DEPARTME NT: exam, xray and splint applied RESULTS: You have a broken right wrist TREATMENT INSTRUCTIONS UPON DISCHARGE FROM THE E MERGENCY DEPARTMENT, INCLUDING INSTRUCTIONS FOR MEDICATIONS: You need orthopedic consultation and treatment t onight. Please go to [facility] Emergency. Orthopedics will see you there. ACTIVE MEDICATIONS: Active Outpatient Medications (excluding Supplie s): Active Outpatient Medications Status 1) ACETAMINOPHEN 500MG TAB TAKE ONE TABLET BY MO UTH ACTIVE EVERY SIX HOURS NEEDED FOR PAIN 2) ALLOPURINOL 300MG TAB TAKE ONE TABLET BY MOUT H EVERY ACTIVE DAY FOR GOUT 3) AMLODIPINE BESYLATE 10MG TAB TAKE ONE TABLET BY MOUTH ACTIVE EVERY DAY FOR BLOOD PRESSURE/HEART, DO NOT TAKE WITH GRAPEFRUIT JUICE 4) APIXABAN 5MG TAB TAKE ONE TABLET BY MOUTH JESSICA RY ACTIVE TWELVE HOURS TO HELP PREVENT BLOOD CLOTS (ANTICOAGULATION) 5) ATORVASTATIN CALCIUM 80MG TAB TAKE ONE TABLET BY ACTIVE MOUTH EVERY DAY TO LOWER CHOLESTEROL 6) FOLIC ACID 1MG TAB TAKE ONE TABLET BY MOUTH E VERY DAY ACTIVE VITAMIN/NUTRITION SUPPLEMENT 7) FUROSEMIDE 40MG TAB TAKE ONE TABLET BY MOUTH TWICE A ACTIVE DAY TO REMOVE FLUID/CONTROL BLOOD PRESSURE 8) ISOSORBIDE MONONITRATE 30MG SA TAB TAKE ONE T ABLET BY ACTIVE MOUTH EVERY DAY TO PREVENT ANGINA 9) METOPROLOL SUCCINATE 200MG SA TAB TAKE ONE TA BLET BY ACTIVE MOUTH EVERY DAY FOR BLOOD PRESSURE/HEART 10) OMEPRAZOLE 20MG EC CAP TAKE ONE CAPSULE BY M OUTH ACTIVE TWICE A DAY FOR STOMACH ACID (TAKE HALF-HOUR BE FORE A MEAL(S) 11) POTASSIUM CHLORIDE 10MEQ SA TAB TAKE TWO TAB LETS BY ACTIVE MOUTH EVERY DAY TO SUPPLEMENT POTASSIUM Active Non-VA Medications Status 1) Non-VA CAPSAICIN 0.1% CREAM SMALL AMOUNT TOPI SHERWIN ACTIVE TWICE DAILY NEEDED 12 Total Medications INSTRUCTIONS FOR FOLLOW UP: [facility] Emergency Dep artment [address] [place], [place] [id number] A copy of these instructions was given to the pa tient and/or caregiver. The instructions were reviewed with the patient and/ or caregiver. The patient and/or caregiver showed understanding of the instructio ns before discharge from the Emergency Department. TREATING PHYSICIAN: KOSTA PHILLIP MD SCHEDULED FUTURE APPOINTMENTS: Future Appointments - Dec@13:00 NEW PACT NURSE PHONE Dec@11:30 NEW PACT Apr@13:00 NEW PACT Jun@09:30 NEW MISC LAB Jun@14:30 [facility] ANTICOAG 2 PHONE During normal business hours Monday-Monday 8-4 P M: If you have any problems, your personal computer network analyst or a doctor can be reached by calling the telephone faizan goldman at: (P) [phone], ext. [phone] Toll-free (P) [phone] ext. [phone] /es/ KOSTA PHILLIP MD Signed: 12/23/2021 03:35 Dec 23, 2021 02:17 AM EMERGENCY DEPT NOTE: KOSTA PHILLIP [facility] LOCAL TITLE: ED MD Note/Emergency Department Ph ysician Note [facility] STANDARD TITLE: EMERGENCY DEPT NOTE DATE OF NOTE: DEC 23, 2021@02:17 ENTRY DATE: DEC 23, 2021@02:18:02 AUTHOR: KOSTA PHILLIP EXP COSIGNER: URGENCY: STATUS: COMPLETED ED MD Note/Emergency Department Physician Yessi lagos Has ADDENDA CHIEF COMPLAINT: right wrist pain HISTORY and PHYSICAL EXAMINATION: HPI: 76 yr old male with the chief complaint of a fall at 1130 pm this evening. The patient was standing, a nd he was trying to put on a light jacket with just his right arm. He has troulbe using the left arm due to gout, and was using just his right arm. He didn't hold onto his cane correctly, and he fell. He stopped his fall with his right hand. He has pain in the medial wrist over the ulna. He states that he has had gout for several weeks in the left ankle and has been treated with prednisone. He states over the past couple days he has just been able to finally get up on his feet aga in. He is on Apixiban for afib. He denies head, neck, chest, abdomen or pe lvis pain. He deneis hitting his head, and he did not have any LOC. This was a mechanical fall due to trying to do too many things without assistance given his underlying mobility issues, and dependence on his cane. ROS: Constitutional: neg Eyes: ENT: neg Lungs: Heart: Neurologic: GI: : Skin: MSK: right wrist pain Endocrine: Hem/Lymph/Imm: Psych: All/Imm: [X] Other than pertinent positives and negatives noted above and in HPI, all other systems on complete review are negative. PMH: Gout ([facility] [id number]) Solitary nodule of lung ([facility] [id number]) Long-term current use of anticoagulant (Atrial f ibrillation ([facility] [id number]) Cerebral infarction ([facility] [id number]) Health Maint (ICD-9-CM V65.9) Headaches (ICD-9-CM 784.0) Adiposity ([facility] [id number] 001) Gastroesophageal Reflux Disorder (EPC-8-Qnmvuxur idemia ([facility] [id number]) Depression (ICD-9-CM 311.) Benign essential hype rtension (SCT 0497247) Impotence (ICD-9-CM 607.84) Abstinent alcoholic ([facility] [id number]) Meds: Active and Recently Outpat ient Medications (including Supplies): Active Outpatient Medications Status 1) ACETAMINOPHEN 500MG TAB TAKE ONE TABLET BY MO UTH ACTIVE EVERY SIX HOURS NEEDED FOR PAIN 2) ALLOPURINOL 300MG TAB TAKE ONE TABLET BY MOUT H EVERY ACTIVE DAY FOR GOUT 3) AMLODIPINE BESYLATE 10MG TAB TAKE ONE TABLET BY MOUTH ACTIVE EVERY DAY FOR BLOOD PRESSURE/HEART, DO NOT TAKE WITH GRAPEFRUIT JUICE 4) APIXABAN 5MG TAB TAKE ONE TABLET BY MOUTH JESSICA RY ACTIVE TWELVE HOURS TO HELP PREVENT BLOOD CLOTS (ANTICOAGULATION) 5) ATORVASTATIN CALCIUM 80MG TAB TAKE ONE TABLET BY ACTIVE MOUTH EVERY DAY TO LOWER CHOLESTEROL 6) FOLIC ACID 1MG TAB TAKE ONE TABLET BY MOUTH E VERY DAY ACTIVE VITAMIN/NUTRITION SUPPLEMENT 7) FUROSEMIDE 40MG TAB TAKE ONE TABLET BY MOUTH TWICE A ACTIVE DAY TO REMOVE FLUID/CONTROL BLOOD PRESSURE 8) ISOSORBIDE MONONITRATE 30MG SA TAB TAKE ONE T ABLET BY ACTIVE MOUTH EVERY DAY TO PREVENT ANGINA 9) METOPROLOL SUCCINATE 200MG SA TAB TAKE ONE TA BLET BY ACTIVE MOUTH EVERY DAY FOR BLOOD PRESSURE/HEART 10) OMEPRAZOLE 20MG EC CAP TAKE ONE CAPSULE BY M OUTH ACTIVE TWICE A DAY FOR STOMACH ACID (TAKE HALF-HOUR BE FORE A MEAL(S) 11) POTASSIUM CHLORIDE 10MEQ SA TAB TAKE TWO TAB LETS BY ACTIVE MOUTH EVERY DAY TO SUPPLEMENT POTASSIUM Inactive Outpatient Medications Status 1) PREDNISONE 20MG TAB TAKE TWO TABLETS BY MOUTH EVERY DAY SHORT COURSE FOR GOUT FLARE ONLY Active Non-VA Medications Status 1) Non-VA CAPSAICIN 0.1% CREAM SMALL AMOUNT TOPI SHERWIN ACTIVE TWICE DAILY NEEDED 13 Total Medications Allergies: Patient has answered NKA PSH: SH: Tobacco: neg Alcohol: neg Illicit drugs: FH: Physical Exam: Vitals: DATE/TIME TEMP PULSE RESP BP PAIN WEIGHT 12/23/21 @ 0213 BP: 157/100 (12/23/2021 02:09) Pulse: 102 (12/23/2021 02:09) Temp: 97.8 F [36.6 C] (12/23/2021 02:09) Resp: 20 (12/23/2021 02:09) HT(in): 62 in [157.5 cm] (12/23/2021 02:09) WT(lbs):216 lb [97.98 kg] (12/23/2021 02:09) 12/23/21 @ 0209 PULSE OXIMETRY: 95 10 General/Constitutional: alert, cooperative Eyes: EOMI ENT: NC/AT, c spine non tender, no facial trauma Lungs: CTA, non tender chest wall Heart: RRR without murmur or sydney Neurologic: CN 2-12 grossly intact, speech mara l, non focal GI: soft, non tender. : Skin: warm and dry MSK: right wrist with tender ness over the radius side distally. There is no skin tenting,and no open skin. No bruise, no break in skin. Neuro vascular intact in the righ t hand. The right forearm and hand are without deformity or STS. He has no ten derness over the right elbow, and no effuison or STS. Right shoulder non tende r. TLS spine non tender Lower extremities without gross deformity, and n o abrasions or bruises. Hem/Lymph/Imm: Psych: alert, cooperative. DIAGNOSTIC INFORMATION: Labs: EKG: CXR: Right wrist xray with distal radius fracture and dorsal diplacement, angulation and also the ulnar styloid. 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 He will need some reduction and ca sting. We do not have any orthopedics here at [facility], and I have called [facility] and the ED attending Dr Carlin will call me back for the transfer call. I spoke with our AOD, and he states that we do not have any way to transfer to [facility] at this point until after 8 am. The patient and drove h ere from two hours away. She is being given written directions on how to get to [facility] ED from here. T he will drive him. The patient is stable to go by private car. The patient was placed in a 4 inch wide volar orthoglass splint from mp joints to just below the right elbow. He had good neuro vasular exam before and after the splint was applied by me, and mayra wrap. I have spoken with Dr Carlin in the ER at [facility], and she accepts the patient. The will drive the patient. They were offer ed transport that would be available per our AOD afterr 8 am, but did not w ant to wait. She will drive him. Written detailed instructions to ge t to [facility] and also phone number given. . PERSONAL PROTECTIVE EQUIPMENT (PPE): Patient was in mask on arrival, MD/PA/ROAD MANAGER used PPE during every encounter , Proce dural Mask, Face Shield PATIENT INSTRUCTIONS: see the Emergency Departme nt Discharge Instructions Note DISPOSITION: [ ] DISCHARGED [x ] TRANSFERRED TO: [ ] LEFT AGAINST MEDICAL ADVICE [ ] ADMITTED TO: CONDITION: [ ] IMPROVED [x ] SATISFACTORY [ ] UNCHANGED Police were called for intervention/observation during this visit: No [X] I have added the Primary Care Provider as an additional signer to this note /almaz/ KOSTA PHILLIP MD Signed: 12/23/2021 03:37 12/23/2021 ADDENDUM STATUS: COMPLETED A Paper IMED consent for transfer was done. and signed by the since the patient cannot use his hand for signing at this time due to the splint. /almaz/ KOSTA PHILLIP MD Signed: 12/23/2021 03:38 Dec 23, 2021 02:13 AM NURSING EMERGENCY DEPT NOTE: [facility] [facility] LOCAL TITLE: ED RN NOTE/EMERGENCY DEPARTMENT NO TE [facility] STANDARD TITLE: NURSING EMERGENCY DEPT NOTE DATE OF NOTE: DEC 23, 2021@02:13 ENTRY DATE: DEC 23, 2021@02:13:15 AUTHOR: BATOOL TERRELL COSIGNER: URGENCY: STATUS: COMPLETED ED RN NOTE/EMERGENCY DEPARTMENT NOTE Has AD DENDA Full ED Note Documentation System Review: * Falls Patient greater than 70 years old? Yes ----- Falls - Stopping Elderly Accidents, s & Injuries (STEADI) ----- Perform Screen Have you fallen in the past year? Yes How many times have you fallen? 1 Were you inju red? YES Do you feel unsteady when standing or walking? Yes Do you worry about falling? Yes Did the patient answer yes to any of the above questions? Yes STEADI Fall Risk Screen Positive To order PHYSICAL THERAPY-FALLS CLINIC OUTPT *Pain Assessment Pain Details: Level of pain: 10 Location of pain: R wrist Pain Description: Medications received: Response to meds: Other therapies utilized to relieve pain: cold, rest, positioning Comment: Effectiveness: 01/31 Neurological: Alert: Yes Oriented to: person: Yes place: Yes time: Yes situation: Yes PERRLA: RIGHT Pupil Size: LEFT Pupil Size: Speech clear: Yes Facial symmetry: Yes NORRIS: History of head trauma? When? Respiratory: Lung Sounds: Left: Right: Unlabored: Yes Cough: No Rate/Rhythm: Disposition: Transferred to [facility] ED 0324 Pt reports a fall at home denies head injur y. X-Ray complete. R wrist splinted by ED physician and nursing applied tala [place]. Pending possible transfer to [facility]. 1550 Pt transferred to [facility] at this time. Time patient discharged from ED: 1550 /almaz/ BATOOL TERRELL Registered Nurse Signed: 12/23/2021 03:54 12/23/2021 ADDENDUM STATUS: COMPLETED Time patient discharged from ED: 0350 /almaz/ BATOOL TERRELL Registered Nurse Signed: 12/23/2021 05:31 Dec 23, 2021 02:11 AM EMERGENCY DEPT TRIAGE NOTE: VASILIY TERRELL [facility] LOCAL TITLE: EMERGENCY DEPT TRIAGE NOTE [facility] STANDARD TITLE: EMERGENCY DEPT TRIAGE NOTE DATE OF NOTE: DEC 23, 2021@02:11 ENTRY DATE: DEC 23, 2021@02:11:19 AUTHOR: BATOOL TERRELL EXP COSIGNER: URGENCY: STATUS: COMPLETED Emergency Department/Urgent Care Center Triage Patient age: 76 Sex: MALE On arrival patient was: WHEELCHAIR Location Patient came from: Home Patient phone number: [phone] Preferred Name: Pronouns: Have you traveled recently No Allergies: Patient has answered NKA Subjective/Chief Complaint: Pt fell at home and landed on his R wrist. Injur y to R wrist. Objective: Painful R wrist. The patient is a fall risk. Intervention: Fall Precautions Vital Signs * BP: 157/100 (12/23/2021 02:09) Pulse: 102 (12/23/2021 02:09) Temp: 97.8 F [36.6 C] (12/23/2021 02:09) Resp: 20 (12/23/2021 02:09) HT(in): 62 in [157.5 cm] (12/23/2021 02:09) WT(lbs):216 lb [97.98 kg] (12/23/2021 02:09) 12/23/21 @ 0209 PULSE OXIMETRY: 95 Pain: 10 (12/23/2021 02:09) Emergency Severity Index (VINCENT) level Level 3 Current Medications: Active Outpatient Medications (excluding Supplie s): Active Outpatient Medications Status 1) ACETAMINOPHEN 500MG TAB TAKE ONE TABLET BY MO UTH ACTIVE EVERY SIX HOURS NEEDED FOR PAIN 2) ALLOPURINOL 300MG TAB TAKE ONE TABLET BY MOUT H EVERY ACTIVE DAY FOR GOUT 3) AMLODIPINE BESYLATE 10MG TAB TAKE ONE TABLET BY MOUTH ACTIVE EVERY DAY FOR BLOOD PRESSURE/HEART, DO NOT TAKE WITH GRAPEFRUIT JUICE 4) APIXABAN 5MG TAB TAKE ONE TABLET BY MOUTH JESSICA RY ACTIVE TWELVE HOURS TO HELP PREVENT BLOOD CLOTS (ANTICOAGULATION) 5) ATORVASTATIN CALCIUM 80MG TAB TAKE ONE TABLET BY ACTIVE MOUTH EVERY DAY TO LOWER CHOLESTEROL 6) FOLIC ACID 1MG TAB TAKE ONE TABLET BY MOUTH E VERY DAY ACTIVE VITAMIN/NUTRITION SUPPLEMENT 7) FUROSEMIDE 40MG TAB TAKE ONE TABLET BY MOUTH TWICE A ACTIVE DAY TO REMOVE FLUID/CONTROL BLOOD PRESSURE 8) ISOSORBIDE MONONITRATE 30MG SA TAB TAKE ONE T ABLET BY ACTIVE MOUTH EVERY DAY TO PREVENT ANGINA 9) METOPROLOL SUCCINATE 200MG SA TAB TAKE ONE TA BLET BY ACTIVE MOUTH EVERY DAY FOR BLOOD PRESSURE/HEART 10) OMEPRAZOLE 20MG EC CAP TAKE ONE CAPSULE BY M OUTH ACTIVE TWICE A DAY FOR STOMACH ACID (TAKE HALF-HOUR BE FORE A MEAL(S) 11) POTASSIUM CHLORIDE 10MEQ SA TAB TAKE TWO TAB LETS BY ACTIVE MOUTH EVERY DAY TO SUPPLEMENT POTASSIUM Active Non-VA Medications Status 1) Non-VA CAPSAICIN 0.1% CREAM SMALL AMOUNT TOPI SHERWIN ACTIVE TWICE DAILY NEEDED 12 Total Medications Current Problems: Active problems - Computerized Problem List is t he source for the followin. Gout 2. Solitary nodule of lung 3. Long-term current use of anticoagulant 4. Atrial fibrillation 5. Cerebral infarction 6. Health Maint 7. Headaches * 8. Adiposity (SNOMED CT 528388612) 9. Gastroesophageal Reflux Disorder 10. Hyperlipidemia (SNOMED CT 15086891) 11. Depression * 12. Benign essential hypertension (SNOMED CT 120 1005) 13. Impotence 14. Abstinent alcoholic (SNOMED CT 302979341) Coronavirus Disease 2019 (COVID-19) Screen The patient was asked if in the last 14 days the y have had new onset of any COVID-19 symptoms. They report the following: No symptoms Within the past 14 days, the patient reports no exposure to someone with a febrile/respiratory illness or someone with a kn own or suspected case of COVID-19 (within 6 feet for > 15 minutes). Result: Screen is negative. Suicide Screen: [place] Suicide Severity Rating Scale (C-SSRS) screener 1. Over the past month, have you wished you wer e or wished you could go to sleep and not wake up? No 2. Over the past month, have you had an y actual thoughts of killing yourself? No 3. Over the past month, have you been thinking about how you might do this? Response not required due to responses to other questions. 4. Over the past month, have you had th patricia thoughts and had some intention of acting on them? Response not required due to responses to other questions. 5. Over the past month, have you started to wor k out or worked out the details of how to kill yourself? Response not required due to responses to other questions. 6. If yes, at any time in the past month did yo u intend to carry out this plan? Response not required due to responses to other questions. 7. In your lifetime, have you ever done anythin g, started to do anything, or prepared to do anything to end your life (for e xample, collected pills, obtained a gun, gave away valuables, went to [facility] roof but didn't jump)? No 8. If YES, was this within the past 3 months? Response not required due to responses to other questions. Sepsis Screening *SUSPECTED INFECTION No How often did you have a drink containing alcoh ol in the past year? Never. Audit-C is negative and the score = 0. Have you smoke or use tobacco products in the 30 days? Patient reports being a lifetime non-tobacco us er. Drug use: No How much per day? Any recent injuries ? No Patient Disposition: ED 2 Tele ICU contacted /almaz/ BATOOL TERRELL Registered Nurse Signed: 12/23/2021 02:13
--- OUTSIDE RECORDS SUMMARY | 2021-12-31 12:55 | XMS_ITS | Encounter Summary ---
:1945 Author Organization [facility] rs Address [address] [place] [address] Support Name Relationship Address Phone CATHERINE JORGENSEN Unavailable [address] [place] [address] COLEMAN, DAUGHTER Unavailable Unavailable Insurance Providers: All [...] MEDICARE MEDICARE PART Oct 22, PART A [id number] DAVIGN ON, PATIENT (WNR) (M) A 2011 UP35 1 RUPERT MEDICARE MEDICARE PART Oct 22, PART A [id number] [phone] WILIAMIGN ON, PATIENT (WNR) (M) A 2011 52A 00 RUPERT Selected Encounter This section includes the information on record at SD for the Encounter. Date/Time Encounter Type Encounter Description Reason Provider Source Sep 23, 2021 03:51 Outpatient Encounter ADMIN PAT ACTIVTIES PM (MASNONCT) IHE Encounter Template Text not used by SD Plan of Treatment: Future Appointments (+ 6 months) and Future Tests (+/- 45 days) The Plan of Treatment section includes future care activities for the patient from all SD treatmentfacilities. This section includes future appointments and future orders which are active, pending orscheduled.Future Appointments This section includes appointments that were scheduled to occur 6 months from the date of the Encounter, up to a maximum of 20 appointments. The data comes from all SD treatment facilities. Appointment Date/Time Appointment Type Appointment Facili ty Name Oct 21, 2021 10:30 AM AM[facility]ULATORY - MEDICINE [facility] Oct 21, 2021 11:00 AM AMBULATORY - MEDICINE [facility] Oct 26, 2021 11:00 AM AM[facility]ULATORY - MEDICINE [facility] Dec 23, 2021 02:04 [facility] Dec 24, 2021 01:00 PM AM[facility]UL[facility] - MEDICINE [facility] Dec 28, 2021 02:30 PM AMBULATORY - MEDICINE [facility] Dec 28, 2021 02:31 PM AMBULATORY - NONE [facility] Jan 18, 2022 11:30 AM AMBULATORY - MEDICINE [facility] Lab Results: +/- 30 days of the encounter This section includes the Chemistry and Hematology Lab Results on record with SD for the patient. Radiology Reports and Pathology Reports are provided separately, in subsequent sections.Lab Results This section contains the Chemistry/Hematology Results that were resulted 30 days before or 30 daysafter the date of the Encounter. Date/Time Source Result Type Result - Unit Interpretation Reference Range Comment Oct 21, 2021 10:22 [facility] PHOSPHORUS Specimen T ype: PLASMA AM Comment: Tests performed on [employer] (405) [id number] Ordering Provid er: BRENDA SANCHEZ Report Released Date/Time: Aug 12, 2021 01:20 PM Reporting [facility]: [facility] [address] [facility] [address] Performing [facility]: [facility] [address] [facility] [facility] [address] PHOSPHORUS 3.4 2.5-5.0 Oct 21, 2021 10:22 [facility] URIC ACID Specimen T ype: PLASMA AM Comment: Tests performed on [employer] (405) [id number] Ordering Provid er: BRENDA SANCHEZ Report Released Date/Time: Aug 12, 2021 01:20 PM Reporting Lab: [facility] [address] [facility] [address] Performing Lab: [facility] [address] [facility] [address] URIC ACID 5.6 3.3-8.7 Oct 21, 2021 [place] [address] GLU,BUN,CREAT,LYTES,CA Speci men Type: PLASMA 10:22 AM CLINIC Comment: Tests performed on [employer] (405) SN:[id number] Ordering Provid er: BRENDA SANCHEZ Report Released Date/Time: Aug 12, 2021 01:20 PM Reporting Lab: [facility] [address] [facility] [address] Performing Lab: [facility] [address] [facility] [address] UREA NITROGEN 29 H 7-25 SODIUM 138 135-145 POTASSIUM 4.1 3.5-5.0 CHLORIDE 100 100-110 CARBON DIOXIDE 26 20-30 ANION GAP 12 4-16 GLUCOSE 107 H 65-100 CREATININE 1.29 0.5-1.5 CALCIUM 8.6 8.5-10.5 eGFR(CKD-EPI 2020) 58 L >60 September 10, 2021 [facility] URINALYSIS W/REFLEX Specimen Ty pe: URINE 01:00 PM [facility] TO CULTURE No comment enter ed. Ordering Provid er: BRYAN SANCHEZ Report Released Date/Time: September 10, 2021 12:10 PM Reporting Lab: [facility] [address] [facility] [address] Performing Lab: [facility] [address] [facility] [address] URINE COLOR Yellow YELLOW SPECIFIC GRAVITY 1.018 1.003-1.030 UROBILINOGEN <2.0 <2.0 URINE BILIRUBIN NEG NEG URINE KETONES NEG NEG URINE GLUCOSE NEG NEG PROTEIN, URINE 100 NEG URINE PH 5.0 5-8 HYALINE CAST 18 H 0-2 GRANULAR CASTS 2 NONE RED BLOOD CELL/URINE 1 0-3 CLARITY CLEAR Clear SPERM RARE NONE URINE BLOOD NEG NEG NITRITE, URINE NEG NEG WBC SCREEN NEG NEG September 10, 2021 12:15 [facility] CRP(INFLAMMATORY) Specimen T ype: PLASMA PM [facility] Comment: Tests performed on [employer] (405) SN:[id number] Ordering Provid er: BRYAN SANCHEZ Report Released Date/Time: September 10, 2021 12:10 PM Reporting Lab: [facility] [address] [facility] [address] Performing [facility]: [facility] [address] [facility] [address] CRP(INFLAMMATORY) 68.2 H 0-5.0 September 10, 2021 12:15 PM [facility] URIC ACID Specimen Type: PLASMA [facility] Comment: Tests performed on [employer] (405) SN:[id number] Ordering Provid er: BRYAN SANCHEZ Report Released Date/Time: September 10, 2021 12:10 PM Reporting Lab: [facility] [address] [facility] [address] Performing Lab: [facility] [address] [facility] [address] URIC ACID 6.3 3.3-8.7 September 10, 2021 12:15 [facility] LIVER PROFILE Specimen Typ e: PLASMA PM [facility] Comment: Tests performed on [employer] (405) SN:[id number] Ordering Provid er: BRYAN SANCHEZ Report Released Date/Time: September 10, 2021 12:10 PM Reporting Lab: [facility] [address] [facility] [address] Performing Lab: [facility] [address] [facility] [address] PROTEIN, TOTAL 8.1 6.0-8.5 ALBUMIN 3.3 3.2-5.0 BILIRUBIN, TOTAL 0.6 0.2-1.2 ALKALINE PHOSPHATASE 118 40-150 ALT(SGPT) 14 7-52 AST(SGOT) 18 5-34 FIB-4 SCORE 0.87 <2.67 September 10, 2021 [facility] P4 GLU,BUN,CREAT,LYTES,CA Speci men Type: PLASMA 12:15 PM [facility] Comment: Tests performed on [employer] (405) SN:[id number] Ordering Provid er: BRYAN SANCHEZ Report Released Date/Time: September 10, 2021 12:10 PM Reporting Lab: [facility] [address] [facility] [address] Performing [facility]: [facility] [address] [facility] [address] UREA NITROGEN 17 7-25 SODIUM 138 135-145 POTASSIUM 3.8 3.5-5.0 CHLORIDE 102 100-110 CARBON DIOXIDE 22 20-30 ANION GAP 14 4-16 GLUCOSE 130 H 65-100 CREATININE 1.25 0.5-1.5 CALCIUM 8.2 L 8.5-10.5 eGFR(CKD-EPI 2020) 60 >60 September 10, 2021 12:15 [place] CBC PROFILE Specimen Typ e: BLOOD PM [facility] No comment enter ed. Ordering Provid er: BRYAN SANCHEZ Report Released Date/Time: September 10, 2021 12:10 PM Reporting Lab: [facility] [address] [facility] [address] Performing Lab: [place] [facility] [address] [facility] [address] WBC 15.5 H 4.5-11.0 RBC 4.84 4.23-5.66 HGB 11.0 L 12.8-17 HEMATOCRIT 37.6 L 39.2-50.4 MCV 77.7 L 82-99 MCH 22.7 L 26.2-32.6 MCHC 29.3 L 30.8-35.1 PLT 411 H 140-360 MPV 9.4 9.2-12.4 RDW 18.6 H 12.0-16.0 LYMPH % 3.7 L 14.0-42.3 MONO % 6.8 5.1-13.7 NEUT % 88.0 H 43.7-75.8 EOS % 0.1 L 0.4-6.8 BASO % 0.4 0.1-2.0 IG % 1.0 H 0.0-0.7 NUCLEATED RED CELLS 0.0 0.0-0.0 ABSOLUTE IG 0.2 H 0-0.06 ABSOLUTE BASOPHILS 0.1 0.01-0.13 ABSOLUTE EOS. 0.0 L 0.03-0.44 ABSOLUTE LYMPHOCYTES 0.6 L 1.0-3.2 ABSOLUTE MONOCYTES 1.1 0.3-1.1 ABSOLUTE GRANULOCYTES 13.6 H 2.2-7.6 ABSOLUTE NRBC 0.00 0-0 September 10, 2021 11:30 [facility] COVID-19 AG SCREEN Specimen Type: NASAL CAVITY AM [facility] PANEL [employer]IN[employer](405) Comment: Testi ng Performed By: Nicole Ramirez Ordering Provid er: RAJENDRA OLIVARES Report Released Date/Time: September 14, 2021 10:11 AM Reporting Lab: [facility] [address] [facility] [address] Performing Lab: [facility] [address] [facility] [address] COVID-19 AG SCRN(wrj BINAX) NEGATIVE NE G Social History: Smoking Status (Most current) and Tobacco Use (All prior to encounter date) This section includes the most current, and the historical, smoking and tobacco-related health factors from the SD facility where the Encounter took place.Current Smoking Status This section includes the most current smoking, or tobacco-related health factor, from the SD facility where the Encounter took place. Date/Time Current Smoking Status Comment Facility September 10, 2021 11:25 AM QUIT TOBACCO USE > 7 YEARS AGO [place] [facility] Tobacco Use History This section includes a history of the smoking, or tobacco- related health factors, that were collected on or before the date of the Encounter. The data comes from the SD facility where the Encounter took place. Date/Time Smoking Status/Tobacco Use Comment [facility] Dec 19, 2017 11:42 AM QUIT TOBACCO USE > 7 YEARS [place] AGO Former user of tobacco products quit 27 yrs ago [facility] Oct 26, 2016 09:17 AM QUIT TOBACCO USE > 7 YEARS [place] AGO [facility] Jan 07, 2016 09:58 AM QUIT TOBACCO USE > 7 YEARS [place] A[place] [facility] September 09, 2008 10:31 AM QUIT TOBACCO USE > 7 YEARS [place] AGO 8 yrs. [facility] August 29, 2007 08:57 AM QUIT TOBACCO USE 1-7 YEARS [place] A[place] [facility] Feb 22, 2007 11:44 AM QUIT TOBACCO USE IN PAST [place] YEAR [facility] August 28, 2006 12:57 PM QUIT TOBACCO USE 1-7 YEARS [place] AGO 5 yrs. ago [facility] August 22, 2005 10:55 AM QUIT TOBACCO USE 1-7 YEARS [place] A[place] quit 4 yr ago [facility] August 27, 2004 01:30 PM HISTORY OF SMOKING [place] 12/25 [facility] JENNIE EDMUNDSON August 27, 2004 01:30 PM QUIT TOBACCO USE IN PAST [place] YEAR 2 years [facility] Dec 19, 2003 01:13 PM QUIT TOBACCO USE IN PAST [place] YEAR [facility] September 05, 2003 02:45 PM H[place]ORY OF SMOKING [place] quit 12/25 [facility] September 05, 2003 02:45 PM QUIT TOBACCO USE IN PAST [place] YEAR quit 12/26 [facility] Mar 27, 2002 11:07 AM CURRENT SMOKER DM Silva [facility] Pt. smokes 1 ppd. [facility] Mar 14, 2001 03:27 PM CURRENT SMOKER DM Silva [facility] Advance Directives: All historical and current Section Date Range: From patient's date of to the date document was created. This section includes ALL of a patient's completed or amended [facility] Advance and Rescinded Directives. The entries below indicate that a directive exists for the patient, but an actual copy is not included with this document. The data comes from all SD facilities. Date Advance Directives Provider Source Apr 06, 2010 ADVANCE DIRECTIVE SVETLANA FRAKN J CT [facility] Radiology Reports: +/- 30 days [...] the Encounter. The data comes from all [place] treatment facilities. Date/Time Radiology Report Provider Source September 10, 2021 12:11 PM FOOT-3 VIEWS (ROUTINE): ORION ZAVALA GAIL COOK T RUPERT JORGENSEN [id number] -1945 M [facility] Exm Date: SEPTEMBER 10, 2021@12:11 Req Phys: BRYAN SANCHEZ Pat Loc: [facility] E D DAYS M1 (Req'g Loc) Img Loc: XRAY (OOS) Service: Unknown (Case [id number] COMPLETE) FOOT-3 VIEWS (ROUTINE) (RAD Detailed) CPT:58479 Proc Modifiers : RIGHT Reason for Study: bilat foot pain, hx of gout Clinical History: Report Status: Verified Date Reported: SEPTEMBER 10, 2021 Date Verified: SEPTEMBER 10, 2021 [employer] E-Sig:/ESTELLA/ORION ZAVALA Report: Bilateral ankles and bilateral feet, 3 nonweigh tbearing views each INDICATION: bilat foot pain, hx of gout COMPARISON: 09/08/2016 bilateral ankle and bilat eral feet x-rays FINDINGS: Bilateral ankles and bilateral feet: No acute f racture, dislocation, or suspicious osseous lesion. Ankl e mortise is intact bilaterally. Incidental bilateral athero sclerotic vascular calcifications. Right foot and right ankle: There is diffuse os seous demineralization. Interval development of a abelardo ent lesion in the medial aspect of the right first metatarsal hea d, suggestive of a marginal erosion or interval worsening osseous demineralization at this site. No definite punched out erosion i s seen. No periostitis. There is mild degenerative disease at the first MTP joint with small osteophytes. Subtle increased soft tissue attenuation is seen adjacent to the lateral asp ect of the first MTP joint for which a tophus cannot be excluded . Interval development of mild soft tissue swelling in the medial and lateral aspect of the hindfoot/ankle as well as in the dorsal aspect of the forefoot. No soft tissue gas. Aga in seen is an os trigonum in the posterior aspect of the knee. A n enthesophyte is also seen at the calcaneal insertion site for t he Achilles tendon. Left foot and left ankle: There is diffuse osse ous demineralization. No erosion or periostitis. No significant degenerative disease. Subtle increased soft tis sally attenuation adjacent to the medial aspect of the left first MTP joint, which may represent a tophus. There is mild soft tiss ue swelling in the lateral aspect of the hindfoot/ankle. Impression: 1. No acute fracture or dislocation. 2. Diffuse osseous demineralization bilaterally . 3. Interval development of a lucent lesion in t he medial aspect of the right first metatarsal head, suggestive of a marginal erosion or interval worsening focal osseous dem ineralization at this site. 4. No definite punched out erosion or periostit is in the feet or ankles. 5. Question tophi adjacent to the lateral aspec t of the right first MTP joint region and adjacent to the medi al aspect of the left first MTP region. Primary Diagnostic Code: NO IMMEDIATE ATTENTION REQUIRED Primary Interpreting Staff: Staff MARY CADENA ([employer]) /September 10, 2021 12:11 PM ANKLE (ROUTINE): ORION ZAVALA [place] JORGENSENO [id number] -1945 M [facility] Exm Date: SEPTEMBER 10, 2021@12:11 Req Phys: BRYAN SANCHEZ Pat Loc: [facility] E D DAYS M1RD (Req'g Loc) Img Loc: XRAY (OOS) Service: Unknown (Case [id number] COMPLETE) ANKLE (ROUTINE) (RAD Detaile d) CPT:70473 Proc Modifiers : RIGHT Reason for Study: bilat foot pain, hx of gout Clinical History: Report Status: Verified Date Reported: SEPTEMBER 10, 2021 Date Verified: SEPTEMBER 10, 2021 [employer] E-Sig:/ES/ORION ZAVALA Report: Bilateral ankles and bilateral feet, 3 nonweigh tbearing views each INDICATION: bilat foot pain, hx of gout COMPARISON: 09/08/2016 bilateral ankle and bilat eral feet x-rays FINDINGS: Bilateral ankles and bilateral feet: No acute f racture, dislocation, or suspicious osseous lesion. Ankl e mortise is intact bilaterally. Incidental bilateral athero sclerotic vascular calcifications. Right foot and right ankle: There is diffuse os seous demineralization. Interval development of a abelardo ent lesion in the medial aspect of the right first metatarsal hea d, suggestive of a marginal erosion or interval worsening osseous demineralization at this site. No definite punched out erosion i s seen. No periostitis. There is mild degenerative disease at the first MTP joint with small osteophytes. Subtle increased soft tissue attenuation is seen adjacent to the lateral asp ect of the first MTP joint for which a tophus cannot be excluded . Interval development of mild soft tissue swelling in the medial and lateral aspect of the hindfoot/ankle as well as in the dorsal aspect of the forefoot. No soft tissue gas. Aga in seen is an os trigonum in the posterior aspect of the knee. A n enthesophyte is also seen at the calcaneal insertion site for t he Achilles tendon. Left foot and left ankle: There is diffuse osse ous demineralization. No erosion or periostitis. No significant degenerative disease. Subtle increased soft tis sally attenuation adjacent to the medial aspect of the left first MTP joint, which may represent a tophus. There is mild soft tiss ue swelling in the lateral aspect of the hindfoot/ankle. Impression: 1. No acute fracture or dislocation. 2. Diffuse osseous demineralization bilaterally . 3. Interval development of a lucent lesion in t he medial aspect of the right first metatarsal head, suggestive of a marginal erosion or interval worsening focal osseous dem ineralization at this site. 4. No definite punched out erosion or periostit is in the feet or ankles. 5. Question tophi adjacent to the lateral aspec t of the right first MTP joint region and adjacent to the medi al aspect of the left first MTP region. Primary Diagnostic Code: NO IMMEDIATE ATTENTION REQUIRED Primary Interpreting Staff: Staff MARY CADENA ([employer]) / September 10, 2021 12:11 PM ANKLE (ROUTINE): OROIN ZAVALA [place]ERT JORGENSNE [id number] -1945 M [facility] Exm Date: SEPTEMBER 10, 2021@12:11 Req Phys: BRYAN SANCHEZ Pat Loc: [facility] E D DAYS M1 (Req'g Loc) Img Loc: XRAY (OOS) Service: Unknown (Case [id number] COMPLETE) ANKLE (ROUTINE) (RAD Detaile d) CPT:88794 Proc Modifiers : LEFT Reason for Study: bilat foot pain, hx of gout Clinical History: Report Status: Verified Date Reported: SEPTEMBER 10, 2021 Date Verified: SEPTEMBER 10, 2021 [employer] E-Sig:/ES/ORION ZAVALA Report: Bilateral ankles and bilateral feet, 3 nonweigh tbearing views each INDICATION: bilat foot pain, hx of gout COMPARISON: 09/08/2016 bilateral ankle and bilat eral feet x-rays FINDINGS: Bilateral ankles and bilateral feet: No acute f racture, dislocation, or suspicious osseous lesion. Ankl e mortise is intact bilaterally. Incidental bilateral athero sclerotic vascular calcifications. Right foot and right ankle: There is diffuse os seous demineralization. Interval development of a abelardo ent lesion in the medial aspect of the right first metatarsal hea d, suggestive of a marginal erosion or interval worsening osseous demineralization at this site. No definite punched out erosion i s seen. No periostitis. There is mild degenerative disease at the first MTP joint with small osteophytes. Subtle increased soft tissue attenuation is seen adjacent to the lateral asp ect of the first MTP joint for which a tophus cannot be excluded . Interval development of mild soft tissue swelling in the medial and lateral aspect of the hindfoot/ankle as well as in the dorsal aspect of the forefoot. No soft tissue gas. Aga in seen is an os trigonum in the posterior aspect of the knee. A n enthesophyte is also seen at the calcaneal insertion site for t he Achilles tendon. Left foot and left ankle: There is diffuse osse ous demineralization. No erosion or periostitis. No significant degenerative disease. Subtle increased soft tis sally attenuation adjacent to the medial aspect of the left first MTP joint, which may represent a tophus. There is mild soft tiss ue swelling in the lateral aspect of the hindfoot/ankle. Impression: 1. No acute fracture or dislocation. 2. Diffuse osseous demineralization bilaterally . 3. Interval development of a lucent lesion in t he medial aspect of the right first metatarsal head, suggestive of a marginal erosion or interval worsening focal osseous dem ineralization at this site. 4. No definite punched out erosion or periostit is in the feet or ankles. 5. Question tophi adjacent to the lateral aspec t of the right first MTP joint region and adjacent to the medi al aspect of the left first MTP region. Primary Diagnostic Code: NO IMMEDIATE ATTENTION REQUIRED Primary Interpreting Staff: ORION ZAVALA Staff ([employer]) / September 10, 2021 12:11 PM FOOT-3 VIEWS (ROUTINE): ORION ZAVALA [facility] [facility] RUPERT JORGENSENO [id number] -1945 M [facility] Exm Date: SEPTEMBER 10, 2021@12:11 Req Phys: BRYAN SANCHEZ Pat Loc: [facility] E D DAYS M1RD (Req'g Loc) Img Loc: XRAY (OOS) Service: Unknown (Case [id number] COMPLETE) FOOT-3 VIEWS (ROUTINE) (RAD Detailed) CPT:80879 Proc Modifiers : LEFT Reason for Study: bilat foot pain, hx of gout Clinical History: Report Status: Verified Date Reported: SEPTEMBER 10, 2021 Date Verified: SEPTEMBER 10, 2021 [employer] E-Sig:/ES/ORION ZAVALA Report: Bilateral ankles and bilateral feet, 3 nonweigh tbearing views each INDICATION: bilat foot pain, hx of gout COMPARISON: 09/08/2016 bilateral ankle and bilat eral feet x-rays FINDINGS: Bilateral ankles and bilateral feet: No acute f racture, dislocation, or suspicious osseous lesion. Ankl e mortise is intact bilaterally. Incidental bilateral athero sclerotic vascular calcifications. Right foot and right ankle: There is diffuse os seous demineralization. Interval development of a abelardo ent lesion in the medial aspect of the right first metatarsal hea d, suggestive of a marginal erosion or interval worsening osseous demineralization at this site. No definite punched out erosion i s seen. No periostitis. There is mild degenerative disease at the first MTP joint with small osteophytes. Subtle increased soft tissue attenuation is seen adjacent to the lateral asp ect of the first MTP joint for which a tophus cannot be excluded . Interval development of mild soft tissue swelling in the medial and lateral aspect of the hindfoot/ankle as well as in the dorsal aspect of the forefoot. No soft tissue gas. Aga in seen is an os trigonum in the posterior aspect of the knee. A n enthesophyte is also seen at the calcaneal insertion site for t he Achilles tendon. Left foot and left ankle: There is diffuse osse ous demineralization. No erosion or periostitis. No significant degenerative disease. Subtle increased soft tis sally attenuation adjacent to the medial aspect of the left first MTP joint, which may represent a tophus. There is mild soft tiss ue swelling in the lateral aspect of the hindfoot/ankle. Impression: 1. No acute fracture or dislocation. 2. Diffuse osseous demineralization bilaterally . 3. Interval development of a lucent lesion in t he medial aspect of the right first metatarsal head, suggestive of a marginal erosion or interval worsening focal osseous dem ineralization at this site. 4. No definite punched out erosion or periostit is in the feet or ankles. 5. Question tophi adjacent to the lateral aspec t of the right first MTP joint region and adjacent to the medi al aspect of the left first MTP region. Primary Diagnostic Code: NO IMMEDIATE ATTENTION REQUIRED Primary Interpreting Staff: Staff MARY CADENA ([employer]) / Encounter Notes: All associated encounter notes This section contains the clinical notes associated to the Encounter. Date/Time Encounter Note(s) Provider Source Sep 23, 2021 03:51 PM LETTERS: MEENAKSHI MALDONADO Christian LOCAL TITLE: Letter To Patient [facility] STANDARD TITLE: LETTERS DATE OF NOTE: SEP 23, 2021@15:51 ENTRY DATE: SEP 23, 2021@15:51:21 AUTHOR: MEENAKSHI MALDONADO EXP COSIGNER: URGENCY: STATUS: COMPLETED DEPARTMENT OF [facility] [address] [place] [address] SEP 23, 2021 MR. RUPERT JORGENSEN [address], [place] [address] Dear Mr. Rupert Jorgensen: [facility] in [place] i s trying to reach you to schedule an appointment. If you have already been in contact with the clinic and scheduled an appointment you may disregard this letter. If we do not hear from you within 14 day s, we will assume you no longer desire an appointment. You were given a consult here by Bryan Machado man Please call one of the numbers provided below so that we may find a suitable date for you: Direct: [phone] Ext [phone] Toll Free: [phone] Ext [phone] We look forward to hearing from you. Health Administration Service Sincerely, MEENAKSHI MALDONADO
--- OUTSIDE RECORDS SUMMARY | 2021-12-31 12:56 | XMS_ITS | Encounter Summary ---
:1945 Author Organization [facility] Address [address] [place] [address] Support Name Relationship Address Phone CATHERINE SERNA Unavailable [address] [place] [address] COLEMAN, DAUGHTER Unavailable Unavailable Insurance Providers: All [...] MEDICARE MEDICARE PART Oct 22, PART A [id number] DAVIGN ON, PATIENT (WNR) (M) A 2011 UP35 1 RUPERT MEDICARE MEDICARE PART Oct 22, PART A [id number] [phone] WILIAMIGN ON, PATIENT (WNR) (M) A 2011 52A 00 RUPERT Selected Encounter This section includes the information on record at [place] for the Encounter. Date/Time Encounter Type Encounter Description Reason Provider Source Dec 07, 2021 10:49 Outpatient Encounter COMMUNITY CARE AM CONSULT IHE Encounter Template Text not used by [facility] Plan of Treatment: Future Appointments (+ 6 months) and Future Tests (+/- 45 days) The Plan of Treatment section includes future care activities for the patient from all [place] treatmentfacilities. This section includes future appointments and future orders which are active, pending orscheduled.Future Appointments This section includes appointments that were scheduled to occur 6 months from the date of the Encounter, up to a maximum of 20 appointments. The data comes from all [place] treatment facilities. Appointment Date/Time Appointment Type Appointment Facili ty Name Dec 23, 2021 02:04 AM AMBULATORY - MEDICINE [facility] Dec 24, 2021 01:00 PM AMBULATORY - MEDICINE [facility] Dec 28, 2021 02:30 PM AMBULATORY - MEDICINE [facility] Dec 28, 2021 02:31 PM AMBULATORY - NONE [facility] Jan 18, 2022 11:30 AM AMBULATORY - MEDICINE [facility] May 03, 2022 01:00 PM [facility] Active, Pending, and Scheduled Orders This section includes a listing of several types of active, pending, and scheduled orders, including clinic medications orders, diagnostic test orders, procedure orders and consult orders; where the start date of the order is 45 days before the date of the Encounter or 45 days after the date of the Encounter. The data comes from all [place] treatment facilities. Test Date/Time Test Type Test Details Facility Name Dec 23, 2021 03:18 AM Consult Order PHYSICAL THERAPY-FALL [facility] Danielle COOK [facility] OUTPT Cons Emergency Room Dec 23, 2021 03:48 AM Consult Order COMMUNITY CARE-ORTHOPEDICS [facility] GENERAL Cons Toy Designer's Choice Social History: Smoking Status (Most current) and Tobacco Use (All prior to encounter date) This section includes the most current, and the historical, smoking and tobacco-related health factors from the [place] facility where the Encounter took place.Current Smoking Status This section includes the most current smoking, or tobacco-related health factor, from the [place] facility where the Encounter took place. Date/Time Current Smoking Status Comment Facility September 10, 2021 11:25 AM QUIT TOBACCO USE > 7 YEARS AGO [facility] Tobacco Use History This section includes a history of the smoking, or tobacco- related health factors, that were collected on or before the date of the Encounter. The data comes from the [place] facility where the Encounter took place. Date/Time Smoking Status/Tobacco Use Comment [facility] Dec 19, 2017 11:42 AM QUIT TOBACCO USE > 7 YEARS [place] AGO Former user of tobacco products quit 27 yrs ago [facility] Oct 26, 2016 09:17 AM QUIT TOBACCO USE > 7 YEARS [place] AGO [facility] Jan 07, 2016 09:58 AM QUIT TOBACCO USE > 7 YEARS [place] AGO [facility] September 09, 2008 10:31 AM QUIT TOBACCO USE > 7 YEARS [place] AGO 8 yrs. [facility] August 29, 2007 08:57 AM QUIT TOBACCO USE 1-7 YEARS [place] A[place] [facility] Feb 22, 2007 11:44 AM QUIT TOBACCO USE IN [place]ST [place] YE[place] [facility] August 28, 2006 12:57 PM QUIT TOBACCO USE 1-7 YEARS [place] 5 yrs. ago [facility] August 22, 2005 10:55 AM QUIT TOBACCO USE 1-7 YEARS [place] A[place] quit 4 yr ago [facility] August 27, 2004 01:30 PM HISTORY OF SMOKING [place] 12/25 [facility] August 27, 2004 01:30 PM QUIT TOBACCO USE IN PAST W [place]ARY [place] YEAR 2 years [facility] Dec 19, 2003 01:13 PM QUIT TOBACCO USE IN [place]ST [place] YE[place] [facility] September 05, 2003 02:45 PM HISTORY OF SMOKING [place] quit 12/25 [facility] September 05, 2003 02:45 PM QUIT TOBACCO USE IN [place]ST [place] YEAR quit 12/26 [facility] Mar 27, 2002 11:07 AM CURRENT SMOKER DM MYERST Pt. smokes 1 ppd. [facility] Mar 14, 2001 03:27 PM CURRENT SMOKER [place] [facility] Advance Directives: All historical and current Section Date Range: From patient's date of to the date document was created. This section includes ALL of a patient's completed or amended [place] Advance and Rescinded Directives. The entries below indicate that a directive exists for the patient, but an actual copy is not included with this document. The data comes from all [place] facilities. Date Advance Directives Provider Source Apr 06, 2010 ADVANCE DIRECTIVE SVETLANA FRANK [place] [facility] Radiology Reports: +/- 30 days of the [...] the Encounter. The data comes from all [place] treatment facilities. Date/Time Radiology Report Provider Source Dec 28, 2021 06:25 PM UNLISTED COPIES FOR OUTSIDE REFERRAL: DM MYERST RUPERT SERNA [id number] -1945 [facility] Ex[facility] Date: DEC 28, 2021@18:25 Req Phys: GOLDY BRASHER Loc: WR MISC GEN XRAY B1RC (Req'g Img Loc: OUTSIDE GENERAL RADIOLOGY Service: Unknown (Case [id number] COMPLETE) UNLISTED COPIES FOR OUTSIDE REFER(RAD Detailed) CPT:46052 Reason for Study: UNLISTED COPIES FOR OUTSIDE R EFERRAL Clinical History: UNLISTED COPIES FOR OUTSIDE REFERRAL. REQUESTED BY [facility]. [id number]. SENT BY JEFF TO [facility] 12/29/21 Report Status: Electronically Filed Date Report ed: Report: Copies (CD) made for outside facility. Impression: Copies (CD) made for outside facility Primary Diagnostic Code: VERIFIED BY: / *ELECTRONICALLY FILED* Dec 23, 2021 02:18 AM WRIST 3 VIEWS (ROUTINE): RADIOLOGY,OUTSIDE [facility] RUPERT SERNA [id number] -1945 M SERVICE [facility] Exm Date: DEC 23, 2021@02:18 Req Phys: KOSTA PHILLIP Loc: [facility] ED NIGHTS M1RD (Req'g Loc) Img Loc: XRAY (OOS) Service: Unknown (Case [id number] COMPLETE) WRIST 3 VIEWS (ROUTINE) (RAD Detailed) CPT:13848 Proc Modifiers : RIGHT Reason for Study: distal ulna pain after fall Clinical History: Report Status: Verified Date Reported: DEC 23, 2021 Date Verified: DEC 23, 2021 Bulb Planter E-Sig: Report: WRIST 3 VIEWS (ROUTINE) HISTORY: distal ulna pain after fall COMPARISON: 09/23/2016 right hand radiographs TECHNIQUE: 4 view(s) of the right wrist, submit berhane to the [place] National Teleradiology Program (NTP) for interp retation. [...] scapholunate ligament injury/tear. READING PHYSICIAN: Hansel Powell -[phone] 12/22/2021 20:56 [facility] National Teleradiology Program [phone] (For Medical Practitioner Use Only ) Attention Patients / Veterans: If you have ques tions or concerns about these test results, please contact your [facility] provider or primary care team. Primary Diagnostic Code: SIGNIFICANT ABNORMALIT Y, ATTN NEEDED Primary Interpreting Staff: RADIOLOGY,OUTSIDE SERVICE, Staff Physician / Encounter Notes: All associated encounter notes This section contains the clinical notes associated to the Encounter. Date/Time Encounter Note(s) Provider Source Dec 07, 2021 10:50 AM NONVA NOTE: STEVAN VILLAVICENCIO LOCAL TITLE: COMMUNITY CARE-CARE COORDINATION [facility] NOTE [facility] STANDARD TITLE: NONVA NOTE DATE OF NOTE: DEC 07, 2021@10:50 ENTRY DATE: DEC 07, 2021@10:50:18 AUTHOR: STEVAN VILLAVICENCIO EXP COSIGNER: URGENCY: STATUS: COMPLETED COMMUNITY CARE-CARE COORDINATION PLAN NOTE Has ADDENDA TC from [facility] to discuss concerns from Basom and , as well as concerns from MARISOL Hong ([phone]) at [facility] regarding the 's ED authorization [id number] and subs equent admission to a swing bed, which bills as SNF level of care. Apparently, the Basom and are insistent t hat the ED auth (good for 30 days) is meant to cover everything while the Vet maxine is at the facility. It has been explained to them by the hospital th at a change in bed status is not covered. This OCC RN enters the conversation at this poin t to discuss the nuances of the authorizations with the 's . She is confused because she feels her has not been discharged from the ospital and therefore, all should be covered under the ED authorization. It is explained that he was discharged from that level of care and medically ready to go home. However, due to deconditioning and an inability to stand and walk, he needed some PT services and was admitted to their TCU level 1 b ed. The Basom has medicare, which will cover 20 da ys at 100% and then, bill a co-pay to the for days 21-100 each year for SNF care. This is explained to the Basom's . She is given the Basom's MC number and the phone number to call and verify his nazario german. She is reminded that the [place] is not able to pay for a SNF bed for him due to lack of service connection. She is given the name and number of our billing officer in [facility] at [facility] in the event she receives a bill from [facility] a nd has questions. She is also given this senior technical writer's name and contact information in order to reach out with any future questions. T/W LMOM for Gely at [facility] in order to relay the above information. /es/ STEVAN VILLAVICENCIO BA, RN CNOR Registered Nurse Signed: 12/07/2021 10:57 Receipt Acknowledged By: 12/07/2021 11:34 /es/ GUMARO SUN Printed Circuit Board Panels TrimmerUtility Helicopter Repairer 12/07/2021 14:52 /es/ SRI HUTCHINSON Registered Nurse 12/08/2021 ADDENDUM STATUS: COMPLETED Adding PCP to advise on date/time of scheduling/ placement of RTC /es/ OLIVER SAUCEDA Signed: 12/08/2021 12:43 Receipt Acknowledged By: * AWAITING SIGNATURE * BRENDA SANCHEZ 12/09/2021 ADDENDUM STATUS: COMPLETED call out to margaux # [phone] - no ans - at this time available date 01/18 in pcp schedule /es/ TONY DANGELO Signed: 12/09/2021 11:08
--- OUTSIDE RECORDS SUMMARY | 2021-12-31 12:56 | XMS_ITS | Encounter Summary ---
:1945 Author Organization [facility] rs Address [address] [place] [address] Support Name Relationship Address Phone CATHERINE SERNA Unavailable [address] [place] [address] COLEMAN, DAUGHTER Unavailable Unavailable Insurance Providers: All [...] MEDICARE MEDICARE PART Oct 22, PART A [id number] DAVIGN ON, PATIENT (WNR) (M) A 2011 UP35 1 [place]UP[place] MEDICARE MEDICARE PART Oct 22, PART A [id number] [id number] WILIAMIGN ON, PATIENT (WNR) (M) A 2011 52A 00 RUPERT Selected Encounter This section includes the information on record at [place] for the Encounter. Date/Time Encounter Type Encounter Description Reason Provider Source Dec 21, 2021 02:39 Outpatient Encounter ADMIN PAT ACTIVTIES PM (NEELACT) IHE Encounter Template Text not used by [place] Plan of Treatment: Future Appointments (+ 6 [...] 20 appointments. The data comes from all [place] treatment facilities. Appointment Date/Time Appointment Type Appointment Facili ty Name Dec 23, 2021 02:04 AM AMBULATORY - MEDICINE [facility] Dec 24, 2021 01:00 PM AMBULATORY - MEDICINE [facility] Dec 28, 2021 02:30 PM AMBULATORY - MEDICINE [facility] Dec 28, 2021 02:31 PM AMBULATORY - NONE [facility] Jan 18, 2022 11:30 AM AMBULATORY - MEDICINE [facility] May 03, 2022 01:00 PM AMBULATORY - MEDICINE [facility] Active, Pending, and Scheduled Orders This section includes a listing of several types of active, pending, and scheduled orders, including clinic medications orders, diagnostic test orders, procedure orders and consult orders; where the start date of the order is 45 days before the date of the Encounter or 45 days after the date of the Encounter. The data comes from all [place] treatment facilities. Test Date/Time Test Type Test Details Facility Name Dec 23, 2021 03:18 AM Consult Order PHYSICAL THERAPY-FALL [facility] Danielle COOK [facility] OUTPT Cons Emergency Room Dec 23, 2021 03:48 AM Consult Order COMMUNITY CARE-ORTHOPEDICS [facility] GENERAL Cons Cafe Server's Choice Social History: Smoking Status (Most current) and Tobacco Use (All prior to encounter date) This section includes the most current, and the historical, smoking and tobacco-related health factors from the [place] facility where the Encounter took place.Current Smoking Status This section includes the most current smoking, or tobacco-related health factor, from the [place] facility where the Encounter took place. Date/Time Current Smoking Status Comment Facility September 10, 2021 11:25 AM QUIT TOBACCO USE > 7 YEARS AGO [facility] Tobacco Use History This section includes a history of the smoking, or tobacco- related health factors, that were collected on or before the date of the Encounter. The data comes from the [place] facility where the Encounter took place. Date/Time Smoking Status/Tobacco Use Comment [facility] Dec 19, 2017 11:42 AM QUIT TOBACCO USE > 7 YEARS [place] AGO Former user of tobacco products quit [address] [facility] Oct 26, 2016 09:17 AM QUIT TOBACCO USE > 7 [address] [place] A[place] [facility] Jan 07, 2016 09:58 AM QUIT TOBACCO USE > 7 YEARS [place] T AGO [facility] September 09, 2008 10:31 AM QUIT TOBACCO USE > 7 YEARS [place] AGO [address] [facility] August 29, 2007 08:57 AM QUIT TOBACCO USE 1-7 YEARS [place] A[place] [facility] Feb 22, 2007 11:44 AM QUIT TOBACCO USE IN [place]ST [place] YE[place] [facility] August 28, 2006 12:57 PM QUIT TOBACCO USE 1-7 YEARS [place] [address] [facility] August 22, 2005 10:55 AM QUIT TOBACCO USE 1-7 YEARS [place] A[place] quit [address] [facility] August 27, 2004 01:30 PM HISTORY OF SMOKING [place] 12/25 [facility] August 27, 2004 01:30 PM QUIT TOBACCO USE IN PAST [place] YEAR [address] [facility] Dec 19, 2003 01:13 PM QUIT TOBACCO USE IN [place]ST [place] YE[place] [facility] September 05, 2003 02:45 PM HISTORY OF SMOKING [place] quit 12/25 [facility] September 05, 2003 02:45 PM QUIT TOBACCO USE IN [place]ST [place] YEAR quit 12/26 [facility] Mar 27, 2002 11:07 AM CURRENT SMOKER [place] Pt. smokes [address] [facility] Mar 14, 2001 03:27 PM CURRENT SMOKER [place] [facility] Advance Directives: All historical and current Section Date Range: From patient's date of to the date document was created. This section includes ALL of a patient's completed or amended [place] Advance and Rescinded Directives. The entries below indicate that a directive exists for the patient, but an actual copy is not included with this document. The data comes from all [place] facilities. Date Advance Directives Provider Source Apr 06, 2010 ADVANCE DIRECTIVE SVETLANA FRANK J CT [facility] Radiology Reports: +/- 30 days of [...] the Encounter. The data comes from all [place] treatment facilities. Date/Time Radiology Report Provider Source Dec 28, 2021 06:25 PM UNLISTED COPIES FOR OUTSIDE REFERRAL: RUPERT TERANO [id number] -1945 [facility] Ex[facility] Date: DEC 28, 2021@18:25 Req Phys: GOLDY BRASHER Loc: [facility] MISC GEN XRAY B1RC (Req'g Img Loc: OUTSIDE GENERAL RADIOLOGY Service: Unknown (Case [id number] COMPLETE) UNLISTED COPIES FOR OUTSIDE REFER(RAD Detailed) CPT:55693 Reason for Study: UNLISTED COPIES FOR OUTSIDE R EFERRAL Clinical History: UNLISTED COPIES FOR OUTSIDE REFERRAL. REQUESTED BY [facility]. [id number]. SENT BY JEFF TO [facility] 12/29/21 Report Status: Electronically Filed Date Report ed: Report: Copies (CD) made for outside facility. Impression: Copies (CD) made for outside facility Primary Diagnostic Code: VERIFIED BY: / *ELECTRONICALLY FILED* Dec 23, 2021 02:18 AM WRIST 3 VIEWS (ROUTINE): RADIOLOGY,OUTSIDE RUPERT TERAN [id number] -[address] [facility] Exm Date: DEC 23, 2021@02:18 Req Phys: KOSTA PHILLIP Loc: [facility] ED NIGHTS M1RD (Req'g Loc) Img Loc: XRAY (OOS) Service: Unknown (Case [id number] COMPLETE) WRIST 3 VIEWS (ROUTINE) (RAD Detailed) CPT:69534 Proc Modifiers : RIGHT Reason for Study: distal ulna pain after fall Clinical History: Report Status: Verified Date Reported: DEC 23, 2021 Date Verified: DEC 23, 2021 Pull Out Operator E-Sig: Report: WRIST 3 VIEWS (ROUTINE) HISTORY: distal ulna pain after fall COMPARISON: 09/23/2016 right hand radiographs TECHNIQUE: 4 view(s) of the right wrist, submit berhane to the [place] National Teleradiology Program (NTP) for interp retation. [...] scapholunate ligament injury/tear. READING PHYSICIAN: Hansel Powell -[phone] 12/22/2021 20:56 [facility] Teleradiology Program [phone] (For Medical Practitioner Use Only ) Attention [...] Encounter Note(s) Provider Source Dec 21, 2021 02:39 PM NONVA NOTE: SOY QUARLES [facility] LOCAL TITLE: NonVA Medical Records STANDARD TITLE: NONVA NOTE DATE OF NOTE: DEC 21, 2021@14:39 ENTRY DATE: DEC 21, 2021@14:40:07 AUTHOR: SOY QUARLES EXP COSIGNER: URGENCY: STATUS: COMPLETED NON VA - DISCHARGE SUMMARY DATES OF SERVICE: 12/05/21-12/09/21 FINAL REPORT LOCATION OF SERVICE: [facility] // SOY QUARLES Signed: 12/21/2021 14:45
--- OUTSIDE RECORDS SUMMARY | 2021-12-31 12:56 | XMS_ITS | Encounter Summary ---
:1945 Author Organization [facility] rs Address [address] [place] [id number] Support Name Relationship Address Phone CATHERINE SERNA Unavailable [address] [phone] [place] [address] COLEMAN, DAUGHTER Unavailable Unavailable Insurance Providers: All [...] MEDICARE MEDICARE PART Oct 22, PART A [id number] DAVIGN ON, PATIENT (WNR) (M) A 2011 UP35 1 RUPERT MEDICARE MEDICARE PART Oct 22, PART A [id number] [phone] WILIAMIGN ON, PATIENT (WNR) (M) A 2011 52A 00 RUPERT Selected Encounter This section includes the information on record at [place] for the Encounter. Date/Time Encounter Type Encounter Description Reason Provider Source Dec 10, 2021 09:09 Outpatient Encounter ADMIN YUSUF DHILLON AM (NEELACT) IHE Encounter Template Text not used by [place] Plan of Treatment: Future Appointments (+ 6 [...] 20 appointments. The data comes from all [place] treatment facilities. Appointment Date/Time Appointment Type Appointment Facili ty Name Dec 23, 2021 02:04 AM [facility]ORY [facility]INE [facility] Dec 24, 2021 01:00 PM AMBULATORY - MEDICINE [facility] Dec 28, 2021 02:30 PM AMBULATORY - MEDICINE [facility] Dec 28, 2021 02:31 PM AMBULATORY - NONE [facility] Jan 18, 2022 11:30 AM AMBULATORY - MEDICINE [facility] May 03, 2022 01:00 PM AMBULATORY - MEDICINE [facility] Active, Pending, and Scheduled Orders [...] data comes from all [place] treatment facilities. Test Date/Time Test Type Test Details Facility Name Dec 23, 2021 03:18 AM Consult Order PHYSICAL THERAPY-FALL [facility] Danielle COOK [facility] OUTPT Cons Emergency Room Dec 23, 2021 03:48 AM Consult Order COMMUNITY CARE-ORTHOPEDICS [facility] GENERAL Cons Tariff Counsel's Choice Social History: Smoking Status (Most current) [...] QUIT TOBACCO USE > 7 YEARS AGO [facility] Tobacco Use History This section includes a history of the smoking, or tobacco- related health factors, that were collected on or before the date of the Encounter. The data comes from the [place] facility where the Encounter took place. Date/Time Smoking Status/Tobacco Use Comment [facility] Dec 19, 2017 11:42 AM QUIT TOBACCO USE > 7 YEARS DM COOK [place] AGO Former user of tobacco products quit 27 yrs ago [facility] Oct 26, 2016 09:17 AM QUIT TOBACCO USE > 7 YEARS [place] AGO [facility] Jan 07, 2016 09:58 AM QUIT TOBACCO USE > 7 YEARS DM COOK [place] AGO [facility] September 09, 2008 10:31 AM QUIT TOBACCO USE > 7 YEARS DM COOK [place] AGO 8 yrs. [facility] August 29, 2007 08:57 AM QUIT TOBACCO USE 1-7 YEARS [place] A[place] [facility] Feb 22, 2007 11:44 AM QUIT TOBACCO USE IN PAST [place] YEAR [facility] August 28, 2006 12:57 PM QUIT TOBACCO USE 1-7 YEARS [place] AGO 5 yrs. ago [facility] August 22, 2005 10:55 AM QUIT TOBACCO USE 1-7 YEARS [place] AGO quit 4 yr ago [facility] August 27, 2004 01:30 PM HISTORY OF SMOKING [place] 12/25 [facility] August 27, 2004 01:30 PM QUIT TOBACCO USE IN PAST [place] YEAR 2 years [facility] Dec 19, 2003 01:13 PM QUIT TOBACCO USE IN PAST [place] YEAR [facility] September 05, 2003 02:45 PM HISTORY OF SMOKING [place] quit 12/25 [facility] September 05, 2003 02:45 PM QUIT TOBACCO USE IN PAST [place] YEAR quit 12/26 [facility] Mar 27, 2002 11:07 AM CURRENT SMOKER [place] Pt. smokes 1 ppd. [facility] Mar 14, 2001 03:27 PM CURRENT SMOKER [place] [facility] Advance Directives: All historical and current Section [...] 2010 ADVANCE DIRECTIVE SVETLANA FRANK J [place] [facility] Radiology Reports: +/- 30 days of the [...] UNLISTED COPIES FOR OUTSIDE REFERRAL: RUPERT TERANO [id number] -1945 [facility] Ex[facility] Date: DEC 28, 2021@18:25 Req Phys: GOLDY BRASHER Loc: [facility] MISC GEN XRAY B1RC (Req'g Img Loc: OUTSIDE GENERAL RADIOLOGY Service: Unknown (Case [id number] COMPLETE) UNLISTED COPIES FOR OUTSIDE REFER(RAD Detailed) CPT:[id number] Reason for Study: UNLISTED COPIES FOR OUTSIDE R EFERRAL Clinical History: UNLISTED COPIES FOR OUTSIDE REFERRAL. [place] [facility] [place] [id number]. [place] [facility] [place] Report Status: Electronically Filed Date Report ed: Report: Copies (CD) made for outside facility. Impression: Copies (CD) made for outside facility Primary Diagnostic Code: VERIFIED BY: / *ELECTRONICALLY FILED* Dec 23, 2021 02:18 AM WRIST 3 VIEWS (ROUTINE): RADIOLOGY,OUTSIDE RUPERT TERAN [id number] -1945 M SERVICE [facility] Exm Date: DEC 23, 2021@02:18 Req Phys: KOSTA PHILLIP Loc: [facility] ED NIGHTS M1RD (Req'g Loc) Img Loc: XRAY (OOS) Service: Unknown (Case [id number] COMPLETE) WRIST 3 VIEWS (ROUTINE) (RAD Detailed) CPT:[id number] Proc Modifiers : RIGHT Reason for Study: distal ulna pain after fall Clinical History: Report Status: Verified Date Reported: DEC 23, 2021 Date Verified: DEC 23, 2021 Multiple Drill Operator E-Sig: Report: WRIST 3 VIEWS (ROUTINE) [...] scapholunate ligament injury/tear. READING PHYSICIAN: Hansel Powell -[phone] 12/22/2021 20:56 [facility] [phone] (For Medical Practitioner Use Only ) Attention [...] Encounter. Date/Time Encounter Note(s) Provider Source Dec 10, 2021 09:09 AM NONVA NOTE: SOY QUARLES LOCAL TITLE: NonVA Medical Records [facility] STANDARD TITLE: NONVA NOTE DATE OF NOTE: DEC 10, 2021@09:09 ENTRY DATE: DEC 10, 2021@09:09:27 AUTHOR: SOY QUARLES EXP COSIGNER: URGENCY: STATUS: COMPLETED NON VA - RELEASE OF INDEMNIFICATION FOR DISCHARG E DATES OF SERVICE: 12/09/21 RELEASE LOCATION OF SERVICE: [facility] /almaz/ SOY QUARLES Signed: 12/10/2021 09:15 Receipt Acknowledged By: * AWAITING SIGNATURE * BRENDA SANCHEZ
--- OUTSIDE RECORDS SUMMARY | 2021-12-31 12:56 | XMS_ITS | Encounter Summary ---
:1945 [facility] Address [address] [place] [address] Support Name Relationship Address Phone CATHERINE SERNA Unavailable [address] [phone] [place] [address] COLEMAN, DAUGHTER Unavailable Unavailable Insurance Providers: All [...] MEDICARE MEDICARE PART Oct 22, PART A [id number] DAVIGN ON, PATIENT (WNR) (M) A 2011 UP35 1 RUPERT MEDICARE MEDICARE PART Oct 22, PART A [id number] [phone] WILIAMIGN ON, PATIENT (WNR) (M) A 2011 52A 00 RUPERT Selected Encounter This section includes the information on record at [place] for the Encounter. Date/Time Encounter Type Encounter Description Reason Provider Source Dec 07, 2021 10:26 Outpatient Encounter COMMUNITY CARE AM CONSULT IHE Encounter Template Text not used by [facility] Plan of Treatment: Future Appointments (+ 6 months) and Future Tests (+/- 45 days) The Plan of Treatment section includes future care activities for the patient from all [place] treatmentfacilities. This section includes future appointments and future orders which are active, pending orscheduled.Future Appointments This section includes appointments that were scheduled to occur 6 months from the date of the Encounter, up to a maximum of 20 appointments. The data comes from all [place] treatment facilities. Appointment Date/Time Appointment Type Appointment Facili ty Name Dec 23, 2021 02:04 AM AMBULATORY - MEDICINE [facility] Dec 24, 2021 01:00 PM AMBULATORY - MEDICINE [facility] Dec 28, 2021 02:30 PM AMBULATORY - MEDICINE [facility] Dec 28, 2021 02:31 PM AMBULATORY - NONE [facility] Jan 18, 2022 11:30 AM AMBULATORY - MEDICINE [facility] May 03, 2022 01:00 PM AMBUL[facility]ORY - MEDICINE [facility] Active, Pending, and Scheduled Orders This section includes a listing of several types of active, pending, and scheduled orders, including clinic medications orders, diagnostic test orders, procedure orders and consult orders; where the start date of the order is 45 days before the date of the Encounter or 45 days after the date of the Encounter. The data comes from all [place] treatment facilities. Test Date/Time Test Type Test Details Facility Name Dec 23, 2021 03:18 AM Consult Order PHYSICAL THERAPY-FALL [facility] Danielle COOK [facility] OUTPT Cons Emergency Room Dec 23, 2021 03:48 AM Consult Order COMMUNITY CARE-ORTHOPEDICS [facility] GENERAL Cons Wholesaler's Choice Social History: Smoking Status (Most current) and Tobacco Use (All prior to encounter date) This section includes the most current, and the historical, smoking and tobacco-related health factors from the [place] facility where the Encounter took place.Current Smoking Status This section includes the most current smoking, or tobacco-related health factor, from the [place] facility where the Encounter took place. Date/Time Current Smoking Status Comment Facility September 10, 2021 11:25 AM QUIT TOBACCO USE > 7 YEARS AGO [facility] Tobacco Use History This section includes a history of the smoking, or tobacco- related health factors, that were collected on or before the date of the Encounter. The data comes from the [place] facility where the Encounter took place. Date/Time Smoking Status/Tobacco Use Comment [facility] Dec 19, 2017 11:42 AM QUIT TOBACCO USE > 7 YEARS [place] AGO Former user of tobacco products quit 27 yrs ago [facility] Oct 26, 2016 09:17 AM QUIT TOBACCO USE > 7 YEARS [place] AGO [facility] Jan 07, 2016 09:58 AM QUIT TOBACCO USE > 7 YEARS [place] AGO [facility] September 09, 2008 10:31 AM QUIT TOBACCO USE > 7 YEARS [place] AGO 8 yrs. [facility] August 29, 2007 08:57 AM QUIT TOBACCO USE 1-7 YEARS [place] AGO [facility] Feb 22, 2007 11:44 AM QUIT TOBACCO USE IN PAST [place] YEAR [facility] August 28, 2006 12:57 PM QUIT TOBACCO USE 1-7 YEARS [place] AGO 5 yrs. ago [facility] August 22, 2005 10:55 AM QUIT TOBACCO USE 1-7 YEARS [place] AGO quit 4 yr ago [facility] August 27, 2004 01:30 PM HISTORY OF SMOKING [place] 12/25 [facility] August 27, 2004 01:30 PM QUIT TOBACCO USE IN PAST W MARY MYERST YEAR 2 years [facility] Dec 19, 2003 01:13 PM QUIT TOBACCO USE IN [place]ST [place] YE[place] [facility] September 05, 2003 02:45 PM HISTORY OF SMOKING [place] quit 12/25 [facility] September 05, 2003 02:45 PM QUIT TOBACCO USE IN PAST [place] YEAR quit 12/26 [facility] Mar 27, 2002 11:07 AM CURRENT SMOKER DM MYERST Pt. smokes 1 ppd. [facility] Mar 14, 2001 03:27 PM CURRENT SMOKER [place] [facility] Advance Directives: All historical and current Section Date Range: From patient's date of to the date document was created. This section includes ALL of a patient's completed or amended [place] Advance and Rescinded Directives. The entries below indicate that a directive exists for the patient, but an actual copy is not included with this document. The data comes from all [place] facilities. Date Advance Directives Provider Source Apr 06, 2010 ADVANCE DIRECTIVE SVETLANA FRANK DM COOK J [place] [facility] Radiology Reports: +/- 30 days of the [...] the Encounter. The data comes from all [place] treatment facilities. Date/Time Radiology Report Provider Source Dec 28, 2021 06:25 PM UNLISTED COPIES FOR OUTSIDE REFERRAL: DM MYERST RUPERT SRENA [id number] -1945 [facility] Exm Date: DEC 28, 2021@18:25 Req Phys: GOLDY BRASHER Loc: [facility] MISC GEN XRAY B1RC (Req'g Img Loc: OUTSIDE GENERAL RADIOLOGY Service: Unknown (Case 149 COMPLETE) UNLISTED COPIES FOR OUTSIDE REFER(RAD Detailed) CPT:[id number] Reason for Study: UNLISTED COPIES FOR OUTSIDE R EFERRAL Clinical History: UNLISTED COPIES FOR OUTSIDE REFERRAL. [place] [facility] [place]. [id number]. SENT BY JEFF [place] [facility] [place] 12/29/21 Report Status: Electronically Filed Date Report ed: Report: Copies (CD) made for outside facility. Impression: Copies (CD) made for outside facility Primary Diagnostic Code: VERIFIED BY: / *ELECTRONICALLY FILED* Dec 23, 2021 02:18 AM WRIST 3 VIEWS (ROUTINE): RADIOLOGY,OUTSIDE [facility] RUPERT SERNA [id number] -1945 M SERVICE [facility] Exm Date: DEC 23, 2021@02:18 Req Phys: KOSTA PHILLIP Loc: [facility] ED NIGHTS M1RD (Req'g Loc) Img Loc: XRAY (OOS) Service: Unknown (Case [id number] COMPLETE) WRIST 3 VIEWS (ROUTINE) (RAD Detailed) CPT:[id number] Proc Modifiers : RIGHT Reason for Study: distal ulna pain after fall Clinical History: Report Status: Verified Date Reported: DEC 23, 2021 Date Verified: DEC 23, 2021 Machine Operator Transplanter E-Sig: Report: WRIST 3 VIEWS (ROUTINE) HISTORY: distal ulna pain after fall COMPARISON: 09/23/2016 right hand radiographs TECHNIQUE: 4 view(s) of the right wrist, submit berhane to the [place] National Teleradiology Program (NTP) for interp retation. [...] scapholunate ligament injury/tear. READING PHYSICIAN: Hansel Powell -[phone] 12/22/2021 20:56 [facility] National Teleradiology Program [phone] (For Medical Practitioner Use Only ) Attention [...] Encounter. Date/Time Encounter Note(s) Provider Source Dec 02, 2021 10:16 AM NONVA NOTE: DORYS OLIVEIRAT LOCAL TITLE: [facility] SELF PRESENTIN G CARE COORD PLAN [facility] STANDARD TITLE: NONVA NOTE DATE OF NOTE: DEC 02, 2021@10:16 ENTRY DATE: DEC 07, 2021@10:26:58 AUTHOR: DORYS OLIVEIRA EXP COSIGNER: URGENCY: STATUS: COMPLETED Emergency Notification Intake Date Presenting to the Facility: Nov Method of Contact: Phone Centralized Call Center Notified [facility] Name: Hospital: [facility] Address: City: [place] State: [place] Zip Code: Phone : [facility] Point of Contact: Name: Millie GilJOSEPH flores Chief complaint: Severe LE pain and swelling, un able to walk. Primary Diagnosis: Disposition Admitted Route of Admission: ER Date of Admission: Nov Admitting Diagnosis: gout, leukocytosis Community Care Provider: [facility] providers Confirm Level of Care: Acute Inpatient Care Caraway was discharged to home on 12/05/2021Juan Carlos wilkerson in CPRS. Notification ID #[id number] EOC approved under 1703 by the National ER Notif ication Team [facility] ([employer]) Ref #:[id number] /almaz/ DORYS MITCHELL, RN OCC EMERGENCY CLASSROOM MONITOR Signed: 12/07/2021 10:33
--- OUTSIDE RECORDS SUMMARY | 2021-12-31 12:57 | XMS_ITS | Encounter Summary ---
:1945 Author Organization [facility] Address [address] [place] [id number] Support Name Relationship Address Phone CATHERINE SERNA Unavailable [address] [phone] [place] [address] COLEMAN, DAUGHTER Unavailable Unavailable Insurance Providers: All [...] MEDICARE MEDICARE PART Oct 22, PART A [id number] DAVIGN ON, PATIENT (WNR) (M) A 2011 UP35 1 RUPERT MEDICARE MEDICARE PART Oct 22, PART A [id number] [phone] WILIAMIGN ON, PATIENT (WNR) (M) A 2011 52A 00 RUPERT Selected Encounter This section includes the information on record at [place] for the Encounter. Date/Time Encounter Type Encounter Description Reason Provider Source Nov 30, 2021 09:19 Outpatient Encounter TELEPHONE TRIAGE AM IHE Encounter Template Text not used by [place] Plan of Treatment: Future Appointments (+ 6 months) and Future Tests (+/- 45 days) The Plan of Treatment section includes future care activities for the patient from all [place] treatmentfacilities. This section includes future appointments and future orders which are active, pending orscheduled.Future Appointments This section includes appointments that were scheduled to occur 6 months from the date of the Encounter, up to a maximum of 20 appointments. The data comes from all [place] treatment facilities. Appointment Date/Time Appointment Type Appointment Facili ty Name Dec 23, 2021 02:04 AM AM[facility]UL[facility]ORY [facility]INE [facility] Dec 24, 2021 01:00 PM [facility] Dec 28, 2021 02:30 PM AMBULATORY - MEDICINE DM [facility] Dec 28, 2021 02:31 PM AMBULATORY - NONE [facility] Jan 18, 2022 11:30 AM [facility] May 03, 2022 01:00 PM [facility] Active, Pending, and Scheduled Orders This section includes a listing of several types of active, pending, and scheduled orders, including clinic medications orders, diagnostic test orders, procedure orders and consult orders; where the start date of the order is 45 days before the date of the Encounter or 45 days after the date of the Encounter. The data comes from all [place] treatment facilities. Test Date/Time Test Type Test Details Facility Name Dec 23, 2021 03:18 AM Consult Order PHYSICAL THERAPY-FALL MARCELINO COOK [facility] OUTPT Cons Emergency Room Dec 23, 2021 03:48 AM Consult Order COMMUNITY CARE-ORTHOPEDICS DM [facility] GENERAL Cons Coach's Choice Social History: Smoking Status (Most current) and Tobacco Use (All prior to encounter date) This section includes the most current, and the historical, smoking and tobacco-related health factors from the [place] facility where the Encounter took place.Current Smoking Status This section includes the most current smoking, or tobacco-related health factor, from the [place] facility where the Encounter took place. Date/Time Current Smoking Status Comment Facility September 10, 2021 11:25 AM QUIT TOBACCO USE > 7 YEARS AGO DM COOK [facility] Tobacco Use History This section includes a history of the smoking, or tobacco- related health factors, that were collected on or before the date of the Encounter. The data comes from the [place] facility where the Encounter took place. Date/Time Smoking Status/Tobacco Use Comment [facility] buster Dec 19, 2017 11:42 AM QUIT TOBACCO USE > 7 YEARS [place] Former user of tobacco products quit 27 yrs ago [facility] Oct 26, 2016 09:17 AM QUIT TOBACCO USE > 7 YEARS [place] A[place] [facility] Jan 07, 2016 09:58 AM QUIT TOBACCO USE > 7 YEARS [place] A[place] [facility] September 09, 2008 10:31 AM QUIT TOBACCO USE > 7 YEARS [place] A[place] 8 yrs. [facility] August 29, 2007 08:57 AM QUIT TOBACCO USE 1-7 YEARS [place] A[place] [facility] Feb 22, 2007 11:44 AM QUIT TOBACCO USE IN PAST [place] YE[place] [facility] August 28, 2006 12:57 PM QUIT TOBACCO USE 1-7 YEARS [place] 5 yrs. ago [facility] August 22, 2005 10:55 AM QUIT TOBACCO USE 1-7 YEARS [place] A[place] quit 4 yr ago [facility] August 27, 2004 01:30 PM HISTORY OF SMOKING [place] 12/25 [facility] August 27, 2004 01:30 PM QUIT TOBACCO USE IN PAST W MARY [place]ERST YEAR 2 years [facility] Dec 19, 2003 01:13 PM QUIT TOBACCO USE IN PAST [place] YEAR [facility] September 05, 2003 02:45 PM HISTORY OF SMOKING [place] quit 12/25 [facility] September 05, 2003 02:45 PM QUIT TOBACCO USE IN PAST [place] YEAR quit 12/26 [facility] Mar 27, 2002 11:07 AM CURRENT SMOKER DM MYERST Pt. smokes 1 ppd. [facility] Mar 14, 2001 03:27 PM CURRENT SMOKER [place] [facility] Advance Directives: All historical and current Section Date Range: From patient's date of to the date document was created. This section includes ALL of a patient's completed or amended [place] Advance and Rescinded Directives. The entries below indicate that a directive exists for the patient, but an actual copy is not included with this document. The data comes from all [place] facilities. Date Advance Directives Provider Source Apr 06, 2010 ADVANCE DIRECTIVE SVETLANA FRANK [place] [facility] Radiology Reports: +/- 30 days [...] the Encounter. The data comes from all [place] treatment facilities. Date/Time Radiology Report Provider Source Dec 28, 2021 06:25 PM UNLISTED COPIES FOR OUTSIDE REFERRAL: DM DIAMOND RUPERT SERNA [id number] -1945 [facility] Ex[facility] Date: DEC 28, 2021@18:25 Req Phys: GOLDY BRASHER Loc: WR MISC GEN XRAY B1RC (Req'g Img Loc: OUTSIDE GENERAL RADIOLOGY Service: Unknown (Case [id number] COMPLETE) UNLISTED COPIES FOR OUTSIDE REFER(RAD Detailed) CPT:34406 Reason for Study: UNLISTED COPIES FOR OUTSIDE R EFERRAL Clinical History: UNLISTED COPIES FOR OUTSIDE REFERRAL. REQUESTED BY [facility]. [id number]. SENT BY JEFF TO [facility] [place] 12/29/21 Report Status: Electronically Filed Date Report ed: Report: Copies (CD) made for outside facility. Impression: Copies (CD) made for outside facility Primary Diagnostic Code: VERIFIED BY: / *ELECTRONICALLY FILED* Dec 23, 2021 02:18 AM WRIST 3 VIEWS (ROUTINE): RADIOLOGY,OUTSIDE [facility] RUPERT SERNA [id number] -1945 M SERVICE [facility] Exm Date: DEC 23, 2021@02:18 Req Phys: KOSTA PHILLIP Loc: [facility] ED NIGHTS M1RD (Req'g Loc) Img Loc: XRAY (OOS) Service: Unknown (Case [id number] COMPLETE) WRIST 3 VIEWS (ROUTINE) (RAD Detailed) CPT:89898 Proc Modifiers : RIGHT Reason for Study: distal ulna pain after fall Clinical History: Report Status: Verified Date Reported: DEC 23, 2021 Date Verified: DEC 23, 2021 Practice Manager E-Sig: Report: WRIST 3 VIEWS (ROUTINE) HISTORY: distal ulna pain after fall COMPARISON: 09/23/2016 right hand radiographs TECHNIQUE: 4 view(s) of the right wrist, submit berhane to the [place] National Teleradiology Program (NTP) for interp retation. [...] scapholunate ligament injury/tear. READING PHYSICIAN: Hansel Powell -[phone] 12/22/2021 20:56 [facility] [employer] Teleradiology Program [phone] (For Medical Practitioner Use Only ) Attention Patients / Veterans: If you have ques tions or concerns about these test results, please contact your [facility] or primary care team. Primary Diagnostic Code: SIGNIFICANT ABNORMALIT Y, ATTN NEEDED Primary Interpreting Staff: RADIOLOGY,OUTSIDE SERVICE, Staff Physician / Encounter Notes: All associated encounter notes This section contains the clinical notes associated to the Encounter. Date/Time Encounter Note(s) Provider Source Nov 30, 2021 09:19 AM PRIMARY CARE MEDICATION MGT NOTE: OLIVER MARIA [facility] LOCAL TITLE: Medication Note STANDARD TITLE: PRIMARY CARE MEDICATION MGT NOTE DATE OF NOTE: NOV 30, 2021@09:19 ENTRY DATE: NOV 30, 2021@09:19:09 AUTHOR: OLIVER SAUCEDA EXP COSIGNER: URGENCY: STATUS: COMPLETED Medication Note Has ADDENDA 's is asking for a 10 day wagner pply of prednisone. He finished taking it on 11/28/2021 but she is afraid of another flare up with this heat. /almaz/ OLIVER SAUCEDA Signed: 11/30/2021 09:20 Receipt Acknowledged By: 11/30/2021 09:39 /es/ VIVIANA SANCHEZ MD Staff Physician 12/01/2021 14:35 /es/ SARAH DUPONT REGISTERED NURSE 11/30/2021 ADDENDUM STATUS: COMPLETED I am concerned about the cass unt of prednisone - He cannot be on this chronically without significant side effects. I'm hesitant t o refill at this time. I had offered Rheumatology appointment and referral, a nd patient is declining. /almaz/ VIVIANA SANCHEZ MD Staff Physician Signed: 11/30/2021 09:40 12/01/2021 ADDENDUM STATUS: COMPLETED Returned call to inform of long-term prednisone concern. Spouse states that [place] has been on t he couch for two days and is unable to walk due to pain. Followed up with the rheumat ology referral and states they would be agreeable if offered in [place] via or in [place] via community care as travel to [facility] is too difficult. States the pain has worsened over the past two days and is unbearable. Declines offer to go to ER for medical evaluation. /es/ SARAH DUPONT REGISTERED NURSE Signed: 12/01/2021 14:35 Receipt Acknowledged By: * AWAITING SIGNATURE * BRENDA SANCHEZ 12/02/2021 ADDENDUM STATUS: COMPLETED 's called with concerns about her hu sband and the swelling of his feet all the way up to his k nees. He has not moved for 24 hours. He is not able to elevate them because it is too painfu l. He is having to urinate in a bucket and she is not sure what she will do if he has t o use the bathroom. She is afraid of him falling and mentioned the need to get some help. I did warm transfer to [facility] triage since his symptoms seem to have worsened since yesterday. /es/ OLIVER SAUCEDA Signed: 12/02/2021 08:11 Receipt Acknowledged By: * AWAITING SIGNATURE * BRENDA SANCHEZ * AWAITING SIGNATURE * SARAH DUPONT V 12/02/2021 ADDENDUM STATUS: COMPLETED again called ba ck stated she was not able to complete the call with Triage - keeps talking about this being cru elty to people, t/w again expressed understanding to and and expressed as was t/w was not medical and could not advise nor prescribe and t his is was what Triage would assist with, again provided the emergency notifi cation line if they were to choose to call an ambulance to transport as they have no transportation nor help to lift and swelling of legs pr ohibits from moving. again expresses how thi s is cruelty and she would get this dr into trouble by calling Vijaya Pradhan. they feel they just n eed the PREDNISONE 20MG TAB. /es/ TONY SANCHEZ [facility] Signed: 12/02/2021 08:32 Receipt Acknowledged By: * AWAITING SIGNATURE * SARAH DUPONT V * AWAITING SIGNATURE * KALI TINOCO 12/03/2021 ADDENDUM STATUS: COMPLETED called back asking for emergency notificsti on number again - was admitted -request for records sent /almaz/ TONY DANGELO Signed: 12/03/2021 11:21 12/06/2021 ADDENDUM STATUS: COMPLETED notes received, placed for review /almaz/ TONY DANGELO Signed: 12/06/2021 07:50 Receipt Acknowledged By: * AWAITING SIGNATURE * SARAH DUPONT V * AWAITING SIGNATURE * KALI TINOCO 12/06/2021 18:22 /es/ KAREN ALMONTE DRILL PRESS OPERATOR FOR [employer] 12/06/2021 ADDENDUM STATUS: COMPLETED [place] called concerned that [facility], [facility] is tell ing her he is not service connected. She again took the emergency notifica tion # as well as the # to eligibility to find out his percentage of servic e connection. /es/ OLIVER SAUCEDA Signed: 12/06/2021 13:48 12/06/2021 ADDENDUM STATUS: COMPLETED Please see [place] Notes date 12/02/2021 /almaz/ KAREN ALMONTE DRILL PRESS OPERATOR FOR METAL Signed: 12/06/2021 18:22
--- OUTSIDE RECORDS SUMMARY | 2021-12-31 12:57 | XMS_ITS | Encounter Summary ---
:1945 Author Organization [facility] Address [address] [place] [address] Support Name Relationship Address Phone CATHERINE SERNA Unavailable [address] [place] [address] COLEMAN, DAUGHTER Unavailable Unavailable Insurance Providers: All [...] MEDICARE MEDICARE PART Oct 22, PART A [id number] DAVIGN ON, PATIENT (WNR) (M) A 2011 UP35 1 [place]UP[place] MEDICARE MEDICARE PART Oct 22, PART A [id number] [phone] WILIAMIGN ON, PATIENT (WNR) (M) A 2011 52A 00 [place] Selected Encounter This section includes the information on record at [place] for the Encounter. Date/Time Encounter Type Encounter Description Reason Provider Source Nov 05, 2021 08:51 Outpatient Encounter TELEPHONE TRIAGE AM IHE Encounter Template Text not used by [place] Plan of Treatment: Future Appointments (+ 6 months) and Future Tests (+/- 45 days) The Plan of Treatment section includes future care activities for the patient from all [place] treatmentfacilities. This section includes future appointments and future orders which are active, pending orscheduled.Future Appointments This section includes appointments that were scheduled to occur 6 months from the date of the Encounter, up to a maximum of 20 appointments. The data comes from all [place] treatment facilities. Appointment Date/Time Appointment Type Appointment Facili ty Name Dec 23, 2021 02:04 AM AMBULATORY - MEDICINE [facility] Dec 24, 2021 01:00 PM AMBULATORY - MEDICINE [facility] Dec 28, 2021 02:30 PM AMBULATORY - MEDICINE [facility] Dec 28, 2021 02:31 PM AMBULATORY - NONE [facility] Jan 18, 2022 11:30 AM AMBULATORY - MEDICINE [facility] May 03, 2022 01:00 PM AMBULATORY - MEDICINE [facility] Lab Results: +/- 30 days of the encounter This section includes the Chemistry and Hematology Lab Results on record with [place] for the patient. Radiology Reports and Pathology Reports are provided separately, in subsequent sections.Lab Results This section contains the Chemistry/Hematology Results that were resulted 30 days before or 30 daysafter the date of the Encounter. Date/Time Source Result Type Result - Unit Interpretation Reference Range Comment Oct 21, 2021 10:22 [facility] PHOSPHORUS Specimen T ype: PLASMA AM Comment: Tests performed on [employer] (405) [id number] Ordering Provid er: BRENDA SANCHEZ Report Released Date/Time: Aug 12, 2021 01:20 PM Reporting Lab: [facility] [address] [place] [facility] [place] [address] Performing Lab: [facility] [address] [place] [facility] [place] [place] [address] PHOSPHORUS 3.4 2.5-5.0 Oct 21, 2021 10:22 [facility] URIC ACID Specimen T ype: PLASMA AM Comment: Tests performed on [employer] (405) [id number] Ordering Provid er: BRENDA SANCHEZ Report Released Date/Time: Aug 12, 2021 01:20 PM Reporting Lab: [facility] [address] [place] [facility] [place] [address] Performing Lab: [facility] [address] [place] [facility] [place] [address] URIC ACID 5.6 3.3-8.7 Oct 21, 2021 [facility] P4 GLU,BUN,CREAT,LYTES,CA Speci men Type: PLASMA 10:22 AM CLINIC Comment: Tests performed on [employer] (405) [id number] Ordering Provid er: BRENDA SANCHEZ Report Released Date/Time: Aug 12, 2021 01:20 PM Reporting Lab: [facility] [address] [facility] [address] Performing Lab: [place] [facility] [address] [facility] [address] UREA NITROGEN 29 H 7-25 SODIUM 138 [...] smoking and tobacco-related health factors from the [place] facility where the Encounter took place.Current Smoking Status This section includes the most current smoking, or tobacco-related health factor, from the [place] facility where the Encounter took place. Date/Time Current Smoking Status Comment Facility September 10, 2021 11:25 AM QUIT TOBACCO USE > 7 YEARS AGO [place] [facility] Tobacco Use History This section includes a history of the smoking, or tobacco- related health factors, that were collected on or before the date of the Encounter. The data comes from the [place] facility where the Encounter took place. Date/Time Smoking Status/Tobacco Use Comment [facility] Dec 19, 2017 11:42 AM QUIT TOBACCO USE > 7 YEARS [place] A[place] Former user of tobacco products quit 27 yrs ago [facility] Oct 26, 2016 09:17 AM QUIT TOBACCO USE > 7 YEARS [place] A[place] [facility] Jan 07, 2016 09:58 AM QUIT TOBACCO USE > 7 YEARS [place] A[place] [facility] September 09, 2008 10:31 AM QUIT TOBACCO USE > 7 YEARS [place] A[place] 8 yrs. [facility] August 29, 2007 08:57 AM QUIT TOBACCO USE 1-7 YEARS [place] A[place] [facility] Feb 22, 2007 11:44 AM QUIT TOBACCO USE IN PAST [place] YE[place] [facility] August 28, 2006 12:57 PM QUIT TOBACCO USE 1-7 YEARS [place] A[place] 5 yrs. ago [facility] August 22, 2005 10:55 AM QUIT TOBACCO USE 1-7 YEARS [place] A[place] quit 4 yr ago [facility] August 27, 2004 01:30 PM HISTORY OF SMOKING DM [place] 12/25 [facility] August 27, 2004 01:30 PM QUIT TOBACCO USE IN PAST Deana MYERST YEAR 2 years [facility] Dec 19, 2003 01:13 PM QUIT TOBACCO USE IN PAST W M[place] YEAR [facility] September 05, 2003 02:45 PM HISTORY OF SMOKING DM DAVIS JCChristian quit 12/25 [facility] September 05, 2003 02:45 PM QUIT TOBACCO USE IN PAST [place] YEAR quit 12/26 [facility] Mar 27, 2002 11:07 AM CURRENT SMOKER DM Silva JCChristian Pt. smokes 1 ppd. [facility] Mar 14, 2001 03:27 PM CURRENT SMOKER DM Silva JCChristian [facility] Advance Directives: All historical and current Section Date Range: From patient's date of to the date document was created. This section includes ALL of a patient's completed or amended [place] Advance and Rescinded Directives. The entries below indicate that a directive exists for the patient, but an actual copy is not included with this document. The data comes from all [place] facilities. Date Advance Directives Provider Source Apr 06, [address] [facility] Encounter Notes: All associated encounter notes This section contains the clinical notes associated to the Encounter. Date/Time Encounter Note(s) Provider Source Nov 05, 2021 08:51 AM PRIMARY CARE ADMINISTRATIVE NOTE: OLIVER MARIA [facility] LOCAL TITLE: Administrative Note/Primary Care STANDARD TITLE: PRIMARY CARE ADMINISTRATIVE NOTE DATE OF NOTE: NOV 05, 2021@08:51 ENTRY DATE: NOV 05, 2021@08:51:21 AUTHOR: OLIVER SAUCEDA EXP COSIGNER: URGENCY: STATUS: COMPLETED Administrative Note/Primary Care Has ADDEND A 's spouse called hai desouza getting scheduled with the other provider here for a second opinion. She said the alopurinol ma kes him sick. [phone] /es/ OLIVER SAUCEDA Signed: 11/05/2021 08:56 Receipt Acknowledged By: 11/11/2021 18:13 /es/ VIVIANA SANCHEZ MD Staff Physician * AWAITING SIGNATURE * SARAH DUPONT V 11/11/2021 ADDENDUM STATUS: COMPLETED OK if he would like to switc h to [facility]. He has been referred to Rheumatology for assistance with gout management. /almaz/ VIVIANA SANCHEZ MD Staff Physician Signed: 11/11/2021 18:12 11/11/2021 ADDENDUM STATUS: COMPLETED Just noticed that patient is declining Rheumatol ogy visit. According to patient's wishes. Please re-assign to [facility] and schedule RTC with him. Thank you. /chip SANCHEZ MD Staff Physician Signed: 11/11/2021 18:13 Receipt Acknowledged By: 11/12/2021 11:38 /es/ OLIVER SAUCEDA * AWAITING SIGNATURE * MARII AVILES * AWAITING SIGNATURE * SARAH DUPONT V 11/12/2021 11:34 /almaz/ TONY DANGELO 11/12/2021 ADDENDUM STATUS: COMPLETED spoke with , states colt meléndez has not been taking the medications as prescribed holding them since the 04 of November, he is taking heart pills and other usual medications - comments since he has stop ped taking newly prescribed ones he is reporting that he is feeling better - gout even has subsided from foot and elbow area, reports since his stro ke he loses train of thought quickly and has trouble with long trips, today his s welling in the feet has gone down and elbow area and feels his weight went down - he was/is just frus trated as he had not had any communication about his labs or x-rays of both feet - these were done in [facility] end of August. He then states when he was called from [facility] for scheduling they told him no one knows what is wrong with you, you don't have gout he felt very frustrated and upset as befo re when 'steve went changing his medications he had a heart attack and felt here w e go again as when his other stroke happened he had had another provider change his medications thin maria isabel was the cause of his stroke. -at this moment is feeling l dorothy he is working out the medications - maybe about 3 months to clear his system , he has a Apr 2022 appt with , he is planning to keep - he will call if anything acute occurs allopurinol - stopped by patient /almaz/ TONY DANGELO Signed: 11/12/2021 11:32 Receipt Acknowledged By: * AWAITING SIGNATURE * BRENDA SANCHEZ * AWAITING SIGNATURE * SARAH DUPONT V
--- OUTSIDE RECORDS SUMMARY | 2021-12-31 12:57 | XMS_ITS | Encounter Summary ---
:1945 Author Organization [facility] Address [address] [place] [id number] Support Name Relationship Address Phone CATHERINE SERNA Unavailable [address] [place] [address] COLEMAN, DAUGHTER Unavailable Unavailable Insurance Providers: All [...] MEDICARE MEDICARE PART Oct 22, PART A [id number] WILIAMIGN ON, PATIENT (WNR) (M) A 2011 [id number] 1 [place] MEDICARE MEDICARE PART Oct 22, PART A [id number] [phone] KATIE ON, PATIENT (WNR) (M) A 2011 [id number] [place] Selected Encounter This section includes the information on record at [facility] for the Encounter. Date/Time Encounter Type Encounter Reason Provider Source Description Oct 21, 2021 ADM SARSCOV2 GENERAL INTERNAL ICD-10-CM Z23 SADAF TIRADO Christian 11:00 AM 50MCG/0.25MLBST MEDICINE Encounter for HER immunization with Provider Comments: Encounter for immunization (ICD-10-CM Z23.) IHE Encounter Template Text not used by [place] Assessments - Encounter Diagnoses This section includes the primary and secondary diagnoses documented for the Encounter. Date/Time Primary/Secondary Diagnosis Name Provider Source Diagnosis Oct 21, 2021 PRIMARY Encounter for NIKA TIRADO [facility] 10:41 AM immunization ER CLIN[facility] Plan of Treatment: Future Appointments (+ 6 [...] Appointment Type Appointment Facili ty Name Oct 26, 2021 11:00 AM AMBULATORY - MEDICINE [facility] Dec 23, 2021 02:04 AM [facility] Dec 24, 2021 01:00 PM AM[facility] - MEDICINE [facility] Dec 28, 2021 02:30 PM AM[facility]UL[facility]ICINE [facility] Dec 28, 2021 02:31 PM AMBULATORY - NONE [facility] Jan 18, 2022 11:30 AM AMBULATORY - MEDICINE [facility] Lab Results: +/- 30 days of the encounter This section includes the Chemistry and Hematology Lab Results [facility] record with [facility] for the [facility]. Radiology Reports and Pathology Reports are provided separately, in subsequent sections.Lab Results This section contains the Chemistry/Hematology Results that were resulted 30 days before or 30 daysafter the date of the Encounter. Date/Time Source Result Type Result - Unit Interpretation Reference Range Comment Oct 21, 2021 10:22 [facility] PHOSPHORUS Specimen T ype: PLASMA AM Comment: Tests performed on Brito Eduson (405) [id number] Ordering Provid er: BRENDA SANCHEZ Report Released Date/Time: Aug 12, 2021 01:20 PM Reporting Lab: [facility] [address] [place] [place] [address] Performing Lab: [facility] [address] [facility] [address] PHOSPHORUS 3.4 2.5-5.0 Oct 21, 2021 10:22 [facility] URIC ACID Specimen T ype: PLASMA AM Comment: Tests performed on Restore Flow Allografts (405) [id number] Ordering Provid er: BRENDA SANCHEZ Report Released Date/Time: Aug 12, 2021 01:20 PM Reporting Lab: [facility] [address] [place] [facility] [place] [address] [facility] [address] [place] [facility] [place] [address] URIC ACID 5.6 3.3-8.7 Oct 21, 2021 [facility] P4 GLU,BUN,CREAT,LYTES,CA Speci men Type: PLASMA 10:22 AM CLINIC Comment: Tests performed on Restore Flow Allografts (405) [id number] Ordering Provid er: BRENDA SANCHEZ Report Released Date/Time: Aug 12, 2021 01:20 PM [facility] [address] [facility] [address] Performing Lab: [facility] [address] [facility] [address] UREA NITROGEN 29 H 7-25 SODIUM 138 135-145 POTASSIUM 4.1 3.5-5.0 CHLORIDE 100 100-110 CARBON DIOXIDE 26 20-30 ANION GAP 12 4-16 GLUCOSE 107 H 65-100 CREATININE 1.29 0.5-1.5 CALCIUM 8.6 8.5-10.5 eGFR(CKD-EPI 2020) 58 L >60 Immunizations: All administered on the encounter date This section contains immunizations associated to the Encounter. Immunization Series Date Issued Reaction Comments COVID-19 (MODERNA), MRNA, 2 Oct 21, 2021 MO D; [id number]; 01/01/2022 LNP-S, PF, 100 MCG/0.5ML DOSE OR 50 MCG/0.25ML DOSE Social History: Smoking Status (Most current) and [...] took place. Date/Time Current Smoking Status Comment [facility] Nov 16, 2020 10:30 AM VA-TOBACCO FORMER USER [facility] Tobacco Use History This section includes a history of the smoking, or tobacco- related health factors, that were collected on or before the date of the Encounter. The data comes from the [place] facility where the Encounter took place. Date/Time Smoking Status/Tobacco Use Comment [facility] Nov 16, 2020 10:30 AM VA-TOBACCO QUIT 15 YRS OR MORE [facility] September 06, 2018 11:34 AM VA-TOBACCO FORMER USER [facility] September 06, 2018 11:34 AM VA-TOBACCO QUIT 15 YRS OR MORE [facility] Advance Directives: All historical and current Section [...] 06, 2010 ADVANCE DIRECTIVE [facility]ETLANA [facility] Encounter Notes: All associated encounter notes This section contains the clinical notes associated to the Encounter. Date/Time Encounter Note(s) Provider Source Oct 21, 2021 10:30 AM NURSING IMMUNIZATION NOTE: RAJAT TIRADO [facility] LOCAL TITLE: VAAES NSG COVID-19 VACCINE ADMINIS TRATION STANDARD TITLE: NURSING IMMUNIZATION NOTE DATE OF NOTE: OCT 21, 2021@10:30 ENTRY DATE: OCT 21, 2021@10:30:44 AUTHOR: MATTHEW TIRADO EXP COSIGNER: URGENCY: STATUS: COMPLETED The patient was given the vaccine information fa ct sheet for this vaccine which lists the benefits and side effect s of the vaccine and which reviews the risks of the vaccine. The fact sheet was reviewe d with the patient and they were given an opportunity to ask questions. The patient denied any prior severe reaction to this vaccine or its components or a severe allergic reaction such as anaphylaxis to any vaccine or to any injectab le therapy. The patient gave verbal consent to receive the vaccine. Booster Dose (half-dose): The patient received Moderna COVID-19 Vaccine 0 .25 ml IM. Series: Series 2 MVX (Manuf); Lot#; Exp Date: MOD; [id number]; Administration Anatomic site: Left Deltoid Vaccine administered without complications. The patient was advised to remain in the facility for 15 minute s post vaccination. The patient was given a completed COVID-19 vacc ination record card, a copy of the [place] Side Effects and Adverse Event s Reporting Fact Sheet and instructed on how to report any adver se reactions. /almaz/ MATTHEW TIRADO LPN Signed: 10/21/2021 10:42
--- OUTSIDE RECORDS SUMMARY | 2021-12-31 12:57 | XMS_ITS | Encounter Summary ---
:1945 Author Organization [facility] Address [address] [place] [id number] Support Name Relationship Address Phone CATHERINE SERNA Unavailable [address] [phone] [place] [address] COLEMAN, DAUGHTER Unavailable Unavailable Insurance Providers: All [...] MEDICARE MEDICARE PART Oct 22, PART A [id number] DAVIGN ON, PATIENT (WNR) (M) A 2011 UP35 1 RUPERT MEDICARE MEDICARE PART Oct 22, PART A [id number] [phone] WILIAMIGN ON, PATIENT (WNR) (M) A 2011 [id number] RUPERT Selected Encounter This section includes the information on record at [place] for the Encounter. Date/Time Encounter Type Encounter Reason Provider Source Description Oct 26, 2021 OFFICE O/P EST PRIMARY ICD-10-CM M10.9 [facility] 11:00 AM MOD 30-39 MIN CARE/MEDICINE Gout, unspecified BRENDA Gonzales with Provider Comments: Gout ([facility] [id number]) IHE Encounter Template Text not used by [place] Assessments - Encounter Diagnoses This section includes the primary and secondary diagnoses documented for the Encounter. Date/Time Primary/Secondary Diagnosis Name Provider Source Diagnosis Nov 09, 2021 PRIMARY Gout, unspecified [facility] 10:02 AM [facility]ENDA Gonzales CL[facility] Nov 09, 2021 SECONDARY skilled nursing (current) [facility] 10:02 AM use of BRENDA Gonzales CLINIC anticoagulants Nov 09, 2021 SECONDARY Morbid (severe) [facility] 10:02 AM obesity due to T,[facility] excess calories Nov 09, 2021 SECONDARY Solitary pulmonary [facility] 10:02 AM nodule T,[facility] Nov 09, 2021 SECONDARY Unspecified atrial [facility] 10:02 AM fibrillation T,[facility] Plan of Treatment: Future Appointments (+ 6 months) and Future Tests (+/- 45 days) The Plan of Treatment section includes future care activities for the patient from all [place] treatmentfacilities. This section includes future appointments and future orders which are active, pending orscheduled.Future Appointments This section includes appointments that were scheduled to occur 6 months from the date of the Encounter, up to a maximum of 20 appointments. The data comes from all [place] treatment facilities. Appointment Date/Time Appointment Type Appointment Facili ty Name Dec 23, 2021 02:04 AM AMBULATORY - MEDICINE [facility] Dec 24, 2021 01:00 PM AMBULATORY - MEDICINE [facility] Dec 28, 2021 02:30 PM AMBULATORY - MEDICINE [facility] Dec 28, 2021 02:31 PM AMBULATORY - NONE [facility] Jan 18, 2022 11:30 AM AMBULATORY - MEDICINE [facility] Lab Results: +/- 30 days of the encounter This section includes the Chemistry and Hematology Lab Results on record with [place] for the patient. Radiology Reports and Pathology Reports are provided separately, in subsequent sections.Lab Results This section contains the Chemistry/Hematology Results that were resulted 30 days before or 30 daysafter the date of the Encounter. Date/Time Source Result Type Result - Unit Interpretation Reference Range Comment Oct 21, 2021 10:22 [facility] PHOSPHORUS Specimen T ype: PLASMA AM Comment: Tests performed on [employer] (405) [id number] Ordering Provid er: BRENDA SANCHEZ Report Released Date/Time: Aug 12, 2021 01:20 PM Reporting Lab: [facility] [address] [facility] [address] Performing Lab: [facility] [address] [facility] [address] PHOSPHORUS 3.4 2.5-5.0 Oct 21, 2021 10:22 [facility] URIC ACID Specimen T ype: PLASMA AM Comment: Tests performed on [employer] (405) [id number] Ordering Provid er: BRENDA SANCHEZ Report Released Date/Time: Aug 12, 2021 01:20 PM Reporting Lab: [facility] [address] [facility] [address] Performing Lab: [facility] [address] [facility] [address] URIC ACID 5.6 3.3-8.7 Oct 21, 2021 [facility] P4 GLU,BUN,CREAT,LYTES,CA Speci men Type: PLASMA 10:22 AM CLINIC Comment: Tests performed on [employer] (405) [id number] Ordering Provid er: BRENDA SANCHEZ Report Released Date/Time: Aug 12, 2021 01:20 PM Reporting Lab: [facility] [address] [facility] [address] [facility] [address] [facility] [address] UREA NITROGEN 29 H 7-25 SODIUM 138 135-145 POTASSIUM 4.1 3.5-5.0 CHLORIDE 100 100-110 CARBON DIOXIDE 26 20-30 ANION GAP 12 4-16 GLUCOSE 107 H 65-100 CREATININE 1.29 0.5-1.5 CALCIUM 8.6 8.5-10.5 eGFR(CKD-EPI 2020) 58 L >60 Vital Signs: All taken on the encounter date This section contains inpatient and outpatient Vital Signs collected on the date of the Encounter. Date/Time Temperature Pulse Blood Respiratory SP02 Pain Height Weight Eugenio dy Source Pressure Rate Mass Index Oct 26, 97.2 F 101 121/81 18 /min 95 % 5 2021 10:47 /min mm[Hg] [facility] Social History: Smoking Status (Most current) and Tobacco Use (All prior to encounter date) This section includes the most current, and the historical, smoking and tobacco-related health factors from the DE facility where the Encounter took place.Current Smoking Status This section includes the most current smoking, or tobacco-related health factor, from the DE facility where the Encounter took place. Date/Time Current Smoking Status Comment Facility Oct 26, 2021 11:00 AM VA-TOBACCO FORMER USER [facility] Tobacco Use History This section includes a history of the smoking, or tobacco- related health factors, that were collected on or before the date of the Encounter. The data comes from the DE facility where the Encounter took place. Date/Time Smoking Status/Tobacco Use Comment [employer] Oct 26, 2021 11:00 AM VA-TOBACCO QUIT 15 YRS OR MORE [facility] Nov 16, 2020 10:30 AM VA-TOBACCO FORMER USER [facility] Nov 16, 2020 10:30 AM VA-TOBACCO QUIT 15 YRS OR MORE [facility] September 06, 2018 11:34 AM VA-TOBACCO FORMER USER [facility] September 06, 2018 11:34 AM VA-TOBACCO QUIT 15 YRS OR MORE [facility] Advance Directives: All historical and current Section Date Range: From patient's date of to the date document was created. This section includes ALL of a patient's completed or amended [place] Advance and Rescinded Directives. The entries below indicate that a directive exists for the patient, but an actual copy is not included with this document. The data comes from all [place] facilities. Date Advance Directives Provider Source Apr 06, 2010 ADVANCE DIRECTIVE SVETLANA FRANK [facility] Encounter Notes: All associated encounter notes This section contains the clinical notes associated to the Encounter. Date/Time Encounter Note(s) Provider Source Oct 26, 2021 11:06 AM PRIMARY CARE NOTE: JOCELYN SANCHEZ [facility] LOCAL TITLE: Primary Care Clinic Note EPHINE STANDARD TITLE: PRIMARY CARE NOTE DATE OF NOTE: OCT 26, 2021@11:06 ENTRY DATE: OCT 26, 2021@11:06:23 AUTHOR: JOCELYN SANCHEZ EXP COSIGNER: URGENCY: STATUS: COMPLETED Primary Care Clinic Note HPI KAREEMRUPERT is a 75 year old MALE with history of AF (on AC), HTN, HLD, GERD, prior CVA, gout, presenting today for [facility] follow-up. Smoking history: 2ppd x45 ye ars. Quit [address] scan with lung nodule 11/2020. If compelling history, recommend 1 year follow-up. Discussed increasing exercise as able. Uric acid recently 5.6 Wants to quit drinking, but has $200 worth of be ers at home so plans to continue. Has JANNY etiology is not appreciated. Declines MOVE for obesity and weight loss assist ance. Refuses colonoscopies and discussed the recommen dation for iron deficiency anemia was to have EGD and colonoscopy and he de clines. ASSESSMENT AND PLAN # Gout Discussed with patient who i s frustrated about his gout management. We reviewed the use of prednisone and risks and benefits. He has been taking more allopurinol than prescribed and voices u nderstanding that this can precipitate flare. Not open to discussin g alcohol. Would like to see Rheumatology. We agreed to supply a short course of prednisone to be use d only when he has a flare. - URic acid 5.6 - Send Prednisone course PRN - Continue Allopurinol 300mg + Colchicine (overlap total of 3 months then stop) - Rheumatology follow-up - I have commented on t he referral - Counseling on EtOH (reports has not had in a c ouple weeks) # Lung Nodule - Advised 12 month follow-up 11/2021 - will send to [facility] # RTC 3 months [] JANNY OBJECTIVE 1) Vital Signs Temp: 97.2 F [36.2 C] (10/26/2021 10:47) Pulse: 101 (10/26/2021 10:47) B/P: 121/81 (10/26/2021 10:47) Resp 18 (10/26/2021 10:47) Height 63 in [160.0 cm] (11/16/2020 10:25) Wt: 211 lb [95.71 kg] (07/13/2021 11:09) BMI: BODY MASS INDEX - JUL 13, 2021@11:09:15 37. 5 2) Physical Exam - General Appearance: no acute distress. - HEENT: Anicteric sclera, MMM. - Cardiovascular: irregularly irregular; no murm ur, gallop, rub. - Extremities: Warm, no LE edema bilaterally. - Resp: Clear to auscultation bilaterally. - Neuro: Moving all four extremities, face symme trical. Normal gait. - Psych: Alert, oriented, pleasant and cooperati ve. 3) Pertinent Labs GLU,BUN,CREAT,LYTES GLUCOSE BUN CREAT SODIUM K C HLOR CO2 10/21/21 10:22 107 H 29 H 1.29 138 4.1 100 26 GLU,BUN,CREAT,LYTES ANION eGFR 10/21/21 10:22 12 HGB A1C: 6.1 (07/07/21 11:03) HCT: 37.6 (09/10/21 12:15) HGB: 11.0 (09/10/21 12:15) Collection DT Specimen Test Name Result Units Re f Range 09/10/2021 12:15 PLASMA!! ALBUMIN 3.3 g/dL 3.2 - 5.0 09/10/2021 12:15 PLASMA!! BILIRUBIN, TOTAL 0.6 m g/dL 0.2 - 1.2 09/10/2021 12:15 PLASMA!! ALKALINE PHOSPHAT 118 U/L 40 - 150 09/10/2021 12:15 PLASMA!! ALT(SGPT) 14 U/L 7 - 5 2 09/10/2021 12:15 PLASMA!! AST(SGOT) 18 U/L 5 - 3 4 !! Indicates COMMENTS AVAILABLE...Refer to Inter im Lab Report. CHOL: 128 (11/16/20 11:06) DLDL: 151 (09/05/03 16:01) HDL: 53 (11/16/20 11:06) LDL: 47 (11/16/20 11:06) TRI (11/16/20 11:06) B12 - NONE FOUND TSH: 1.96 (10/12/17 10:09) PSA (BILLING SPEC) - NONE FOUND HIV: Collection DT Spec HIV SCR 09/23/2016 15:54 SERUM Non-Reactive Occult Blood Fit: Collection DT Spec FIT 04/2407/03/2018 08:00 FECES Negative MEDICATIONS Active Outpatient Medications (excluding Supplie s): Active [...] TO HELP PREVENT BLOOD CLOTS (ANTICOAGULATION) 5) ASPIRIN 81MG EC TAB TAKE ONE TABLET BY MOUTH EVERY ACTIVE DAY TO PREVENT STROKE/HEART ATTACK OR FOR PAIN/SWELLING/INFLAMMATION 6) ATORVASTATIN CALCIUM 80MG TAB TAKE ONE TABLET BY ACTIVE MOUTH EVERY DAY TO LOWER CHOLESTEROL 7) COLCHICINE 0.6MG TAB TAKE ONE TABLET BY MOUTH EVERY ACTIVE DAY FOR GOUT 8) DICLOFENAC NA 1% TOP GEL APPLY 2 GRAMS TO UPP ER ACTIVE EXTREMITIES TOPICALLY FOUR TIMES DAILY NEEDE D FOR PAIN/INFLAMMATION. *DO NOT EXCEED 16 GRAMS DAILY TO ANY JOINT OF LOWER EXTREMITIES. DO NOT EXCEED 8 GRAMS DAILY TO ANY JOINT OF UPPER EXTREMITIES. DO NOT EXCEED TOTAL DOSE OF 32 GRA MS DAILY OVER ALL JOINTS. 9) FOLIC ACID 1MG TAB TAKE ONE TABLET BY MOUTH E VERY DAY ACTIVE VITAMIN/NUTRITION SUPPLEMENT 10) FUROSEMIDE 40MG TAB TAKE ONE TABLET BY MOUTH TWICE A ACTIVE DAY TO REMOVE FLUID/CONTROL BLOOD PRESSURE 11) ISOSORBIDE MONONITRATE 30MG SA TAB TAKE ONE TABLET BY ACTIVE MOUTH EVERY DAY TO PREVENT ANGINA 12) METOPROLOL SUCCINATE 200MG SA TAB TAKE ONE T ABLET BY ACTIVE MOUTH EVERY DAY FOR BLOOD PRESSURE/HEART 13) OMEPRAZOLE 20MG EC CAP TAKE ONE CAPSULE BY M OUTH ACTIVE TWICE A DAY FOR STOMACH ACID (TAKE HALF-HOUR BE FORE A MEAL(S) 14) POTASSIUM CHLORIDE 10MEQ SA TAB TAKE TWO TAB LETS BY ACTIVE MOUTH EVERY DAY TO SUPPLEMENT POTASSIUM Active Non-VA Medications Status 1) Non-VA CAPSAICIN 0.1% CREAM SMALL AMOUNT TOPI SHERWIN ACTIVE TWICE DAILY NEEDED 15 Total Medications UPCOMING APPOINTMENTS Future Appointments - Jun@09:30 NEW MISC LAB Jun@14:30 J ANTICOAG 2 PHONE Avg Risk Colorectal Cancer Screen: AVERAGE RISK colorectal cancer screening is due based on information available to this clinical reminder Patient declined screening/surveillance. Patient educated on the benefits of colorectal cancer screening/surveillance and the risk if screenin g/surveillance is not completed. Medication Reconciliation: Outpatient: Has the patient been taking medications as docu mented in the EMLR? YES: The patient has been taking medications as documented in the EMLR. Essential Medication List for Review used to co mplete this medication reconciliation. INCLUDED IN THIS LIST: Alphabetical list of act radha outpatient prescriptions dispensed from this VA (local) an d dispensed from another VA or DoD facility (remote) as well as inpatien t orders (local, pending and active), local clinic medications, locally documented non-VA medications, and local prescriptions that have or been discontinued in the past 90 days. - All changes in medications, including all non -VA/Herbal/OTC medications were entered into CPRS. - If there were any medications the patient reagan uld no longer take, they were discontinued. - The patient/caregiver was instructed to updat e this list, discard old lists, and take this list to the next appointme nt, whether with a VA or non-VA provider. Allergies/ADRs (Tool #5) FACILITY ALLERGY/ADR -------- [facility] D NO KNOWN ALLERGIES [facility] No Known Allergies Med [facility] (Tool #1) INCLUDED IN THIS LIST: Alphabetical list of act radha outpatient prescriptions dispensed from this VA (local) an d dispensed from another VA or DoD facility (remote) as well as inpatien t orders (local pending and active), local clinic medications, locally docu mented non-VA medications, and local prescriptions that have or be en discontinued in the past 90 days. Non-VA Meds Last Documented On: Oct 31, 2016 NOTE The display of VA prescriptions disp ensed from another VA or DoD facility (remote) is limited to active outp atient prescription entries matched to National Drug File at the [facility] and may not include some items such as investigational drugs, compo unds, etc. NOT INCLUDED IN THIS LIST: Medications self-ent ered by the patient into personal health records (i.e. [employer]) ar e NOT included in this list. Non-VA medications documented outside [facility], remote inpatient orders (regardless of status) and remote clinic medications are NOT included in this list. The patient and provider must always discuss medications the patient is taking, regardless o f where the medication was dispensed or obtained. OUTPT ACETAMINOPHEN 500MG TAB (Status = Active) TAKE ONE TABLET BY MOUTH EVERY SIX HOURS NEE DED FOR PAIN Rx# [id number] Last Released: 07/27/21 Qty/Days Sup ply: 200/45 Rx Expiration Date: 02/26/22 Refills Remainin OUTPT ALLOPURINOL 100MG TAB (Status = Discontin ued) TAKE ONE TABLET BY MOUTH EVERY DAY FOR GOUT Rx# [id number] Last Released: 07/16/21 Qty/Days Sup ply: 90/90 Rx Expiration Date: 10/11/21 Refills Remainin OUTPT ALLOPURINOL 100MG TAB (Status = Discontin ued) TAKE TWO TABLETS BY MOUTH EVERY DAY FOR GOUT Rx# [id number] Last Released: 08/17/21 Qty/Days Sup ply: 180/90 Rx Expiration Date: 08/13/22 Refills Remainin OUTPT ALLOPURINOL 300MG TAB (Status = Active) TAKE ONE TABLET BY MOUTH EVERY DAY FOR GOUT Rx# [id number] Last Released: 09/17/21 Qty/Days Sup ply: 90/90 Rx Expiration Date: 09/17/22 Refills Remainin OUTPT AMLODIPINE BESYLATE 10MG TAB (Status = Ac tive) TAKE ONE TABLET BY MOUTH EVERY DAY FOR BLOOD MT ESSURE/HEART, DO NOT TAKE WITH GRAPEFRUIT JUICE Rx# [id number] Last Released: 09/14/21 Qty/Days Diaz pply: 90/90 Rx Expiration Date: 04/20/22 Refills Remainin OUTPT APIXABAN 5MG TAB (Status = Active) TAKE ONE TABLET BY MOUTH EVERY TWELVE HOURS TO HELP PREVENT BLOOD CLOTS (ANTICOAGULATION) Rx# [id number] Last Released: 08/10/21 Qty/Days Diaz pply: 180/90 Rx Expiration Date: 07/09/22 Refills Remainin OUTPT ASPIRIN 81MG EC TAB (Status = Active) TAKE ONE TABLET BY MOUTH EVERY DAY TO PREVENT S TROKE/HEART ATTACK OR FOR PAIN/SWELLING/INFLAMMATION Rx# [id number] Last Released: 05/28/21 Qty/Days Sup ply: 120/90 Rx Expiration Date: 10/31/21 Refills Remainin OUTPT ATORVASTATIN CALCIUM 80MG TAB (Status = A ctive) TAKE ONE TABLET BY MOUTH EVERY DAY TO LOWER CHO LESTEROL Rx# [id number] Last Released: 07/20/21 Qty/Days Diaz pply: Rx Expiration Date: 04/20/22 Refills Remainin Non-VA CAPSAICIN 0.1% CREAM APPLY SMALL AMOUNT TOPICALLY TWICE DAILY NEE DED for joint pain OUTPT CELECOXIB 100MG CAP (Status = Discontinue d) TAKE ONE CAPSULE BY MOUTH TWICE A DAY FOR ARTHR ITIS Rx# [id number] Last Released: 09/10/21 Qty/Days Sup ply: 01/26 Rx Expiration Date: 10/10/21 Refills Remainin OUTPT COLCHICINE 0.6MG TAB (Status = Discontinu ed) TAKE ONE TABLET BY MOUTH EVERY DAY FOR GOUT Rx# [id number] Last Released: 07/16/21 Qty/Days Sup ply: Rx Expiration Date: 05/21/22 Refills Remainin OUTPT COLCHICINE 0.6MG TAB (Status = ) TAKE ONE TABLET BY MOUTH EVERY DAY FOR GOUT Rx# [id number] Last Released: 08/17/21 Qty/Days Sup ply: 60/60 Rx Expiration Date: 10/11/21 Refills Remainin OUTPT COLCHICINE 0.6MG TAB (Status = Active) TAKE ONE TABLET BY MOUTH EVERY DAY FOR GOUT Rx# [id number] Last Released: 10/18/21 Qty/Days Sup ply: Rx Expiration Date: 11/14/21 Refills Remainin OUTPT DICLOFENAC NA 1% TOP GEL (Status = Active ) APPLY 2 GRAMS TO UPPER EXTREMITIES TOPICALLY FO UR TIMES DAILY NEEDED FOR PAIN/INFLAMMATION. *DO NOT EXCEED 16 GRAMS DAILY TO ANY JOINT OF LOWER EXTREMITIES. DO NOT EXCEED 8 GRAMS DAILY TO ANY JOINT OF UPPER EXTREMITIES. DO NOT EXCEED T OTAL DOSE OF 32 GRAMS DAILY OVER ALL JOINTS. Rx# [id number] Last Released: 11/04/20 Qty/Days Diaz pply: 100/30 Rx Expiration Date: 10/31/21 Refills Remainin OUTPT FOLIC ACID 1MG TAB (Status = Discontinued ) TAKE ONE TABLET BY MOUTH EVERY DAY VITAMIN/NUTR ITION SUPPLEMENT Rx# [id number] Last Released: 05/11/21 Qty/Days Sup ply: 90/90 Rx Expiration Date: 07/31/21 Refills Remainin OUTPT FOLIC ACID 1MG TAB (Status = Active) TAKE ONE TABLET BY MOUTH EVERY DAY VITAMIN/NUTR ITION SUPPLEMENT Rx# [id number] Last Released: 08/05/21 Qty/Days Diaz pply: Rx Expiration Date: 08/03/22 Refills Remainin OUTPT FUROSEMIDE 40MG TAB (Status = Active) TAKE ONE TABLET BY MOUTH TWICE A DAY TO REMOVE FLUID/CONTROL BLOOD PRESSURE Rx# [id number] Last Released: 10/20/21 Qty/Days Diaz pply: 180 Rx Expiration Date: 04/20/22 Refills Remainin OUTPT ISOSORBIDE MONONITRATE 30MG SA TAB (Statu s = Active) TAKE ONE TABLET BY MOUTH EVERY DAY TO PREVENT A NGINA Rx# [id number] Last Released: 09/14/21 Qty/Days Diaz pply: 90 Rx Expiration Date: 04/20/22 Refills Remainin OUTPT METOPROLOL SUCCINATE 200MG SA TAB (Status = Active) TAKE ONE TABLET BY MOUTH EVERY DAY FOR BLOOD MT ESSURE/HEART Rx# [id number] Last Released: 08/24/21 Qty/Days Sup ply: 90 Rx Expiration Date: 04/20/22 Refills Remainin OUTPT OMEPRAZOLE 20MG EC CAP (Status = Active) TAKE ONE CAPSULE BY MOUTH TWICE A DAY FOR STOMA CH ACID (TAKE HALF-HOUR BEFORE A MEAL(S) Rx# [id number] Last Released: 09/14/21 Qty/Days Diaz pply: [id number] Rx Expiration Date: 03/17/22 Refills Remainin OUTPT POTASSIUM CHLORIDE 10MEQ SA TAB (Status = Active) TAKE TWO TABLETS BY MOUTH EVERY DAY TO SUPPLEME NT POTASSIUM Rx# [id number] Last Released: 07/16/21 Qty/Days Diaz pply: 180 Rx Expiration Date: 04/20/22 Refills Remainin SUPPLIES Depression Screening: Perform PHQ-2 A PHQ-2 screen was performed. The score was 0 w hich is a negative screen for depression. Over the past two weeks, how often have you bee n bothered by the following problems? 1. Little interest or pleasure in doing things Not at all 2. Feeling down, depressed, or hopeless Not at all PTSD Screening: PC-PTSD-5 A PTSD screening test (PC-PTSD-5) was negative (score=1). Have you ever had any experience that was so fr ightening, horrible or upsetting that, IN THE PAST MONTH, you: Have you ever experienced this kind of event? YES 1. Had nightmares about the event(s) or thought about the event(s) when you did not want to? NO 2. Tried hard not to think about the event(s) o r went out of your way to avoid situations that reminded you of the ev ent(s)? NO 3. Been constantly on guard, watchful, or easil y startled? YES 4. Ione numb or detached from people, activitie s, or your surroundings? NO 5. Ione guilty or unable to stop blaming yourse lf or others for the event(s) or any problems the event(s) may have caused? NO /almaz/ VIVIANA SANCHEZ MD Staff Physician Signed: 11/09/2021 10:02 Oct 26, 2021 10:50 AM PRIMARY CARE ANNUAL EVALUATION NOTE: KAREN JOVEL [facility] LOCAL TITLE: Preventive Health Annual Review STANDARD TITLE: PRIMARY CARE ANNUAL EVALUATION N OTE DATE OF NOTE: OCT 26, 2021@10:50 ENTRY DATE: OCT 26, 2021@10:50:11 AUTHOR: KAREN ALMONTE EXP COSIGNER: URGENCY: STATUS: COMPLETED Pt here for f2f with PCP Advance Directive Screen: Patient has an Advance Directive on file at [facility]. No updates are needed at this time. The patient received education about Advance Di rectives and written notification of his/her rights. Tobacco Use Screening: The patient is a former tobacco user. The patient quit fifteen or more years ago. Home Telehealth (CCHT) Referral: Patient not a candidate for CCHT Program at thi s time. /almaz/ KAREN ALMONTE DOUGHNUT FRYER Signed: 10/26/2021 10:52
--- OUTSIDE RECORDS SUMMARY | 2021-12-31 12:58 | XMS_ITS | Encounter Summary ---
:1945 Author Organization [facility] Address [address] [place] [address] Support Name Relationship Address Phone CATHERINE SERNA Unavailable [address] [place] [address] COLEMAN, DAUGHTER Unavailable Unavailable Insurance Providers: All [...] MEDICARE MEDICARE PART Oct 22, PART A [id number] DAVIGN ON, PATIENT (WNR) (M) A 2011 UP35 1 RUPERT MEDICARE MEDICARE PART Oct 22, PART A [id number] [phone] WILIAMIGN ON, PATIENT (WNR) (M) A 2011 52A 00 RUPERT Selected Encounter This section includes the information on record at [place] for the Encounter. Date/Time Encounter Type Encounter Reason Provider Source Description Oct 15, 2021 11:42 Outpatient TELEPHONE TRIAGE DOMINIC ALEGRIA AM Encounter IHE Encounter Template Text not used by [facility] Plan of Treatment: Future Appointments (+ 6 months) and Future Tests (+/- 45 days) The Plan of Treatment section includes future care activities for the patient from all [place] treatmentfacilities. This section includes future appointments and future orders which are active, pending orscheduled.Future Appointments This section includes appointments that were scheduled to occur 6 months from the date of the Encounter, up to a maximum of 20 appointments. The data comes from all [place] treatment facilities. Appointment Date/Time Appointment Type Appointment Facili ty Name Oct 21, 2021 10:30 AM AMBULATORY - MEDICINE [facility] Oct 21, 2021 11:00 AM [facility] Oct 26, 2021 11:00 AM [facility]UL[facility] Dec 23, 2021 02:04 AM [facility] Dec 24, 2021 01:00 PM [facility]UL[facility] Dec 28, 2021 02:30 PM AM[facility]UL[facility]ICINE [facility] Dec 28, 2021 02:31 PM AMBULATORY - NONE [facility] Jan 18, 2022 11:30 AM AMBULATORY - MEDICINE [facility] Lab Results: +/- 30 days of the encounter This section includes the Chemistry and Hematology Lab Results on record with [place] for the patient. Radiology Reports and Pathology Reports are provided separately, in subsequent sections.Lab Results This section contains the Chemistry/Hematology Results that were resulted 30 days before or 30 daysafter the date of the Encounter. Date/Time Source Result Type Result - Unit Interpretation Reference Range Comment Oct 21, 2021 10:22 [facility] PHOSPHORUS Specimen T ype: PLASMA AM Comment: Tests performed on [employer] (405) [id number] Ordering Provid er: BRENDA SANCHEZ Report Released Date/Time: Aug 12, 2021 01:20 PM Reporting [facility] [address] [facility] [address] Performing Lab: [facility] [address] [facility] [address] PHOSPHORUS 3.4 2.5-5.0 Oct 21, 2021 10:22 [facility] URIC ACID Specimen T ype: PLASMA AM Comment: Tests performed on [employer] (405) [id number] Ordering Provid er: BRENDA SANCHEZ Report Released Date/Time: Aug 12, 2021 01:20 PM Reporting Lab: [facility] [address] [facility] [address] Performing Lab: [facility] [address] [facility] [address] URIC ACID 5.6 3.3-8.7 Oct 21, 2021 [place] [address] GLU,BUN,CREAT,LYTES,CA Speci men Type: PLASMA 10:22 AM CLINIC Comment: Tests performed on [employer] (405) [id number] Ordering Provid er: BRENDA SANCHEZ Report Released Date/Time: Aug 12, 2021 01:20 PM Reporting Lab: [place] [facility] [address] [facility] [address] Performing Lab: [place] [facility] [address] [facility] [address] UREA NITROGEN 29 H 7-25 SODIUM 138 [...] smoking and tobacco-related health factors from the [place] facility where the Encounter took place.Current Smoking Status This section includes the most current smoking, or tobacco-related health factor, from the [place] facility where the Encounter took place. Date/Time Current Smoking Status Comment Facility September 10, 2021 11:25 AM QUIT TOBACCO USE > 7 YEARS AGO [place] [facility] Tobacco Use History This section includes a history of the smoking, or tobacco- related health factors, that were collected on or before the date of the Encounter. The data comes from the [place] facility where the Encounter took place. Date/Time Smoking Status/Tobacco Use Comment [facility] Dec 19, 2017 11:42 AM QUIT TOBACCO USE > 7 YEARS [place] A[place] Former user of tobacco products quit 27 yrs ago [facility] Oct 26, 2016 09:17 AM QUIT TOBACCO USE > 7 YEARS [place] A[place] [facility] Jan 07, 2016 09:58 AM QUIT TOBACCO USE > 7 YEARS [place] A[place] [facility] September 09, 2008 10:31 AM QUIT TOBACCO USE > 7 YEARS [place] A[place] 8 yrs. [facility] August 29, 2007 08:57 AM QUIT TOBACCO USE 1-7 YEARS [place] A[place] [facility] Feb 22, 2007 11:44 AM QUIT TOBACCO USE IN PAST [place] YEAR [facility] August 28, 2006 12:57 PM QUIT TOBACCO USE 1-7 YEARS [place] A[place] 5 yrs. ago [facility] August 22, 2005 10:55 AM QUIT TOBACCO USE 1-7 YEARS [place] A[place] quit 4 yr ago [facility] August 27, 2004 01:30 PM HISTORY OF SMOKING [place] 12/25 [facility] August 27, 2004 01:30 PM QUIT TOBACCO USE IN [place]ST [place] YEAR 2 years [facility] Dec 19, 2003 01:13 PM QUIT TOBACCO USE IN PAST [place] YEAR [facility] September 05, 2003 02:45 PM HISTORY OF SMOKING [place] quit 12/25 [facility] September 05, 2003 02:45 PM QUIT TOBACCO USE IN PAST [place] YEAR quit 12/26 [facility] Mar 27, 2002 11:07 AM CURRENT SMOKER [place] Pt. smokes 1 ppd. [facility] Mar 14, 2001 03:27 PM CURRENT SMOKER [place] [facility] Advance Directives: All historical and current Section Date Range: From patient's date of to the date document was created. This section includes ALL of a patient's completed or amended [place] Advance and Rescinded Directives. The entries below indicate that a directive exists for the patient, but an actual copy is not included with this document. The data comes from all [place] facilities. Date Advance Directives Provider Source Apr 06, 2010 ADVANCE DIRECTIVE SVETLANA FRANK JOYCE J CT [facility] Encounter Notes: All associated encounter notes This section contains the clinical notes associated to the Encounter. Date/Time Encounter Note(s) Provider Source Oct 15, 2021 11:42 AM RN PROGRESS NOTE: SARBJIT ALEGRIA T LOCAL TITLE: CCC: CLINICAL TRIAGE [facility] STANDARD TITLE: RN PROGRESS NOTE DATE OF NOTE: OCT 15, 2021@11:42:15 ENTRY DATE: OCT 15, 2021@11:42:15 AUTHOR: SARBJIT ALEGRIA EXP COSIGNER: URGENCY: STATUS: COMPLETED CCC: CLINICAL TRIAGE Has ADDENDA Patient Demographics Patient Name: RUPERT SERNA Patient Primary Address: [address] [place] [id number] Patient : 1945 Patient Age: 75 Patient Primary Phone: [phone] SSN: [id number] Caller Relationship: Self Triage Summary Nurse Summary: Ongoing issue. was schedu led for a Telephone call with PCP which never happened. He is quite frustrated with not hearing back from anyone. Forwarding to PC team for f/u QING. Will IM Team Nurses to see alert please Conducted triage/discussed symptoms Summary of Actions Other course(s) of action Generated msg to PACT/Provider Clinical Contact Center Codes Clinic/Location: V1 [facility] PHONE CCC RN /almaz/ SARBJIT ALEGRIA Clinical Contact Center acetone button paster Signed: 10/15/2021 11:42 Receipt Acknowledged By: 10/15/2021 17:57 /almaz/ MATTHEW TIRADO LPN 10/15/2021 ADDENDUM STATUS: COMPLETED Called patient and did phone appointment. /almaz/ VIVIANA SANCHEZ MD Staff Physician Signed: 10/15/2021 12:45 10/25/2021 ADDENDUM STATUS: COMPLETED New flare - he accidentally has been inc reasing his allopruinol and not taking colchicine. Discussed this as possible problem. Will send another course of steroids. /almaz/ VIVIANA SANCHEZ MD Staff Physician Signed: 10/25/2021 21:38
--- OUTSIDE RECORDS SUMMARY | 2021-12-31 12:58 | XMS_ITS | Encounter Summary ---
:1945 Author Organization [facility] Address [address] [place] [address] Support Name Relationship Address Phone CATHERINE SERNA Unavailable [address] [place] [address] COLEMAN, DAUGHTER Unavailable Unavailable Insurance Providers: All [...] MEDICARE MEDICARE PART Oct 22, PART A [id number] WILIAMIGN ON, PATIENT (WNR) (M) A 2011 UP35 1 RUPERT MEDICARE MEDICARE PART Oct 22, PART A [id number] [id number] KATIE ON, PATIENT (WNR) (M) A 2011 [id number] 00 RUPERT Selected Encounter This section includes the information on record at [place] for the Encounter. Date/Time Encounter Type Encounter Description Reason Provider Source Oct 15, 2021 11:00 Outpatient Encounter TELEPHONE PRIMARY CARE IHE Encounter Template Text not used by [...] 21, 2021 10:30 AM [facility] Oct 21, 2021 11:00 AM AMBULATORY - [facility] Oct 26, 2021 11:00 AM AMBULATORY - [facility]IC[facility] Dec 23, 2021 02:04 [facility] Dec 24, 2021 01:00 PM [facility] Dec 28, 2021 02:30 PM [facility] Dec 28, 2021 02:31 PM AMBULATORY - NONE [facility] Jan 18, 2022 11:30 AM AMBULATORY - MEDIC[facility] Lab Results: +/- 30 days of the encounter This section includes the Chemistry and Hematology Lab Results on record with [place] for the patient. Radiology Reports and Pathology Reports are provided separately, in subsequent sections.Lab Results This section contains the Chemistry/Hematology Results that were resulted 30 days before or 30 daysafter the date of the Encounter. Date/Time Source Result Type Result - Unit Interpretation Reference Range Comment Oct 21, 2021 10:22 [facility] PHOSPHORUS Specimen T ype: PLASMA AM Comment: Tests performed on Discourse (405) [id number] Ordering Provid er: BRENDA SANCHEZ Report Released Date/Time: Aug 12, 2021 01:20 PM Reporting Lab: [facility] [address] [facility] [address] Performing Lab: [facility] [address] [facility] [address] PHOSPHORUS 3.4 2.5-5.0 Oct 21, 2021 10:22 [facility] URIC ACID Specimen T ype: PLASMA AM Comment: Tests performed on [employer] (405) SN:[id number] Ordering Provid er: BRENDA SANCHEZ Report Released Date/Time: Aug 12, 2021 01:20 PM Reporting Lab: [facility] [address] [facility] [address] Performing Lab: [facility] [address] [facility] [address] URIC ACID 5.6 3.3-8.7 Oct 21, 2021 [place] [address] GLU,BUN,CREAT,LYTES,CA Speci men Type: PLASMA 10:22 AM CLINIC Comment: Tests performed on Discourse (405) [id number] Ordering Provid er: BRENDA SANCHEZ Report Released Date/Time: Aug 12, 2021 01:20 PM Reporting Lab: [facility] [address] [facility] [address] Performing Lab: [facility] [address] [facility] [address] UREA NITROGEN 29 H 7-25 SODIUM 138 [...] place. Date/Time Current Smoking Status Comment Facility Nov 16, 2020 10:30 AM VA-TOBACCO FORMER USER [facility] Tobacco Use History This section includes a history of the smoking, or tobacco- related health factors, that were collected on or before the date of the Encounter. The data comes from the [place] facility where the Encounter took place. Date/Time Smoking Status/Tobacco Use Comment [facility] Nov 16, 2020 10:30 AM VA-TOBACCO QUIT 15 YRS OR MORE [facility] September 06, 2018 11:34 AM VA-TOBACCO FORMER USER [facility] September 06, 2018 11:34 AM VA-TOBACCO QUIT 15 YRS OR MORE [facility] Advance Directives: All historical and current Section Date Range: From patient's date of to the date document was created. This section includes ALL of a patient's completed or amended [place] Advance and Rescinded Directives. The entries below indicate that a directive exists for the patient, but an actual copy is not included with this document. The data comes from all [facility]. Date Advance Directives Provider Source Apr 06, 2010 ADVANCE DIRECTIVE SVETLANA FRANK [facility] Encounter Notes: All associated encounter notes This section contains the clinical notes associated to the Encounter. Date/Time Encounter Note(s) Provider Source Oct 15, 2021 12:40 PM NONVA MEDICATION MGT NOTE: REGINA SANCHEZ [facility] LOCAL TITLE: Prescription Slip for NonVA Pharma cy PHINE STANDARD TITLE: NONVA MEDICATION MGT NOTE DATE OF NOTE: OCT 15, 2021@12:40 ENTRY DATE: OCT 15, 2021@12:40:24 AUTHOR: JOCELYN SANCHEZ COSIGNER: URGENCY: STATUS: COMPLETED Prescription Slip for NonVA Pharmacy Has AD PELON [facility] [address] [place] [address] Patient: Date: OCT 15, 2021 RUPERT SERNA [address] [place] [id number] :Oct Medication: Prednisone 5mg tablets Quantity: 53 Sig: Take 40mg for 5 days then 30mg for 1 day t hen 20mg for 1 day then 10mg for 1 day and finally 5mg for 1 day Refills: 0 Substitution Permitted NPI # [id number] TRAVIS # Charmaine Sanchez MD Sep /es/ Date CHARMAINE SANCHEZ MD Staff Physician 10/15/2021 ADDENDUM STATUS: COMPLETED Please send to [facility] with voucher. /almaz/ CHARMAINE SANCHEZ MD Staff Physician Signed: 10/15/2021 12:41 Receipt Acknowledged By: 10/15/2021 17:59 /almaz/ MATTHEW TIRADO LPN 10/15/2021 ADDENDUM STATUS: COMPLETED Printed and faxed with voucher to [facility] /almaz/ OLIVER SAUCEDA Signed: 10/15/2021 14:54 11/09/2021 ADDENDUM STATUS: COMPLETED following up with request to have some medi cation on hand for - review of chart PREDNISONE 2 0MG TAB Last Filled:10/26/21 (Mail) released 10/28/21 - also provided pharmacy phone # and t/c to follow up with status of medication /es/ TONY SANCHEZ AMSA Signed: 11/09/2021 08:40 Receipt Acknowledged By: * AWAITING SIGNATURE * BRENDA SANCHEZ * AWAITING SIGNATURE * SARAH DUPONT V
--- OUTSIDE RECORDS SUMMARY | 2021-12-31 12:59 | XMS_ITS | Encounter Summary ---
:1945 Author Organization [facility] Address [address] [place] [address] Support Name Relationship Address Phone CATHERINE SERNA Unavailable [address] [place] [address] COLEMAN, DAUGHTER Unavailable Unavailable Insurance Providers: All [...] MEDICARE MEDICARE PART Oct 22, PART A [id number] DAVIGN ON, PATIENT (WNR) (M) A 2011 UP35 1 [place] MEDICARE MEDICARE PART Oct 22, PART A [id number] [phone] WILIAMIGN ON, PATIENT (WNR) (M) A 2011 [id number] [place] Selected Encounter This section includes the information on record at [place] for the Encounter. Date/Time Encounter Type Encounter Description Reason Provider Source September 14, 2021 08:30 Outpatient Encounter TELEPHONE TRIAGE AM IHE Encounter Template Text not used by [place] Plan of Treatment: Future Appointments (+ 6 months) and Future Tests (+/- 45 days) The Plan of Treatment section includes future care activities for the patient from all [place] treatmentfacilities. This section includes future appointments and future orders which are active, pending orscheduled.Future Appointments This section includes appointments that were scheduled to occur 6 months from the date of the Encounter, up to a maximum of 20 appointments. The data comes from all [place] treatment facilities. Appointment Date/Time Appointment Type Appointment Facili ty Name September 16, 2021 01:30 PM AMBULATORY - [facility]INE [facility] Oct 21, 2021 10:30 AM AMBULATORY - [facility]ICINE [facility] Oct 21, 2021 11:00 AM [facility] - [facility]INE [facility] Oct 26, 2021 11:00 AM [facility]INE [facility] Dec 23, 2021 02:04 AM AMBUL[place]IC[place] [facility] Dec 24, 2021 01:00 PM AMBULATORY - MED[facility]INE [facility] Dec 28, 2021 02:30 PM AMBULATORY - MEDICINE [place] [facility] Dec 28, 2021 02:31 PM AMBULATORY - NONE [facility] Jan 18, 2022 11:30 AM AMBULATORY - MEDICINE [facility] Lab Results: +/- 30 days [...] Result - Unit Interpretation Reference Range Comment September 10, 2021 [place] [facility] T URINALYSIS W/REFLEX Specimen Ty pe: URINE 01:00 PM [facility] TO CULTURE No comment enter ed. Ordering Provid er: MARIO SANCHEZ Report Released Date/Time: September 10, 2021 12:10 PM Reporting Lab: [facility] [address] [facility] [address] Performing Lab: [facility] [address] [facility] [address] URINE COLOR Yellow YELLOW SPECIFIC GRAVITY 1.018 [...] SCREEN NEG NEG September 10, 2021 12:15 [place] CRP(INFLAMMATORY) Specimen T ype: PLASMA PM [facility] Comment: Tests performed on [employer] (405) SN:[id number] Ordering Provid er: MARIO SANCHEZ Report Released Date/Time: September 10, 2021 12:10 PM Reporting Lab: [facility] [address] [facility] [address] Performing Lab: [place] [facility] [address] [facility] [address] CRP(INFLAMMATORY) 68.2 H 0-5.0 September 10, 2021 12:15 PM [place] URIC ACID Specimen Type: PLASMA [facility] Comment: Tests performed on [employer] (405) SN:[id number] Ordering Provid er: MARIO SANCHEZ Report Released Date/Time: September 10, 2021 12:10 PM Reporting Lab: [place] [facility] [address] [facility] [address] Performing Lab: [place] [facility] [address] [facility] [address] URIC ACID 6.3 3.3-8.7 September 10, 2021 12:15 [place] LIVER PROFILE Specimen Typ e: PLASMA PM [facility] Comment: Tests performed on [employer] (405) SN:[id number] Ordering Provid er: MARIO SANCHEZ Report Released Date/Time: September 10, 2021 12:10 PM Reporting Lab: [place] [facility] [address] [facility] [address] Performing Lab: [place] [facility] [address] [facility] [address] PROTEIN, TOTAL 8.1 6.0-8.5 ALBUMIN 3.3 3.2-5.0 BILIRUBIN, TOTAL 0.6 0.2-1.2 ALKALINE PHOSPHATASE 118 40-150 ALT(SGPT) 14 7-52 AST(SGOT) 18 5-34 FIB-4 SCORE 0.87 <2.67 September 10, 2021 [place] P4 GLU,BUN,CREAT,LYTES,CA Speci men Type: PLASMA 12:15 PM [facility] Comment: Tests performed on [employer] (405) [id number] Ordering Provid er: MARIO SANCHEZ Report Released Date/Time: September 10, 2021 12:10 PM Reporting Lab: [place] [facility] [address] [facility] [address] Performing Lab: [place] [facility] [address] [facility] [address] UREA NITROGEN 17 7-25 SODIUM 138 135-145 POTASSIUM 3.8 3.5-5.0 CHLORIDE 102 100-110 CARBON DIOXIDE 22 20-30 ANION GAP 14 4-16 GLUCOSE 130 H 65-100 CREATININE 1.25 0.5-1.5 CALCIUM 8.2 L 8.5-10.5 eGFR(CKD-EPI 2020) 60 >60 September 10, 2021 12:[address] [facility] CBC PROFILE Specimen Typ e: BLOOD PM [facility] No comment enter ed. Ordering Provid er: MARIO SANCHEZ Report Released Date/Time: September 10, 2021 12:10 PM Reporting [facility]: [facility] [address] [facility] [address] Performing Lab: [facility] [address] [facility] [address] WBC 15.5 H 4.5-11.0 RBC 4.84 4.23-5.66 [...] NRBC 0.00 0-0 September 10, 2021 11:[address] [facility] COVID-19 AG SCREEN Specimen Type: NASAL CAVITY AM VAOC PANEL [employer](405) Comment: Testi ng Performed By: Nicole Ramirez Ordering Provid er: RAJENDRA OLIVARES Report Released Date/Time: September 14, 2021 10:11 AM Reporting Lab: [place] [address] [facility] [address] Performing Lab: [place] [facility] [address] [facility] [address] COVID-19 AG SCRN(markchris LUZPRESLEY) NEGATIVE NE G Social History: Smoking Status (Most current) and Tobacco Use (All prior to encounter date) This section includes the most current, and the historical, smoking and tobacco-related health factors from the [place] facility where the Encounter took place.Current Smoking Status This section includes the most current smoking, or tobacco-related health factor, from the [place] facility where the Encounter took place. Date/Time Current Smoking Status Comment Facility September 10, 2021 11:25 AM QUIT TOBACCO USE > 7 YEARS AGO [place] [facility] Tobacco Use History This section includes a history of the smoking, or tobacco- related health factors, that were collected on or before the date of the Encounter. The data comes from the [place] facility where the Encounter took place. Date/Time Smoking Status/Tobacco Use Comment [facility] Dec 19, 2017 11:42 AM QUIT TOBACCO USE > 7 YEARS [place] A[place] Former user of tobacco products quit 27 yrs ago [facility] Oct 26, 2016 09:17 AM QUIT TOBACCO USE > 7 YEARS [place] A[place] [facility] Jan 07, 2016 09:58 AM QUIT TOBACCO USE > 7 YEARS [place] A[place] [facility] September 09, 2008 10:31 AM QUIT TOBACCO USE > 7 YEARS [place] A[place] 8 yrs. [facility] August 29, 2007 08:57 AM QUIT TOBACCO USE 1-7 YEARS [place] A[place] [facility] Feb 22, 2007 11:44 AM QUIT TOBACCO USE IN PAST [place] YEAR [facility] August 28, 2006 12:57 PM QUIT TOBACCO USE 1-7 YEARS [place] A[place] 5 yrs. ago [facility] August 22, 2005 10:55 AM QUIT TOBACCO USE 1-7 YEARS [place] A[place] quit 4 yr ago [facility] August 27, 2004 01:30 PM HISTORY OF SMOKING [place] 12/25 [facility] August 27, 2004 01:30 PM QUIT TOBACCO USE IN PAST [place] YEAR 2 years [facility] Dec 19, 2003 01:13 PM QUIT TOBACCO USE IN PAST [place] YEAR [facility] September 05, 2003 02:45 PM HISTORY OF SMOKING DM [facility] quit 12/25 [facility] September 05, 2003 02:45 PM QUIT TOBACCO USE IN PAST W [place] [facility] YEAR quit 12/26 [facility] Mar 27, 2002 11:07 AM CURRENT SMOKER DM [place] Pt. smokes 1 ppd. [facility] Mar 14, 2001 03:27 PM CURRENT SMOKER DM DI[place] [facility] Advance Directives: All historical and current Section Date Range: From patient's date of to the date document was created. This section includes ALL of a patient's completed or amended [place] Advance and Rescinded Directives. The entries below indicate that a directive exists for the patient, but an actual copy is not included with this document. The data comes from all [place] facilities. Date Advance Directives Provider Source Apr 06, 2010 ADVANCE DIRECTIVE SVETLANA FRANK J [address] [facility] Radiology Reports: +/- 30 days of the [...] the Encounter. The data comes from all [place] treatment facilities. Date/Time Radiology Report Provider Source September 10, 2021 12:11 PM FOOT-3 VIEWS (ROUTINE): ORION [facility]A [facility] T [place] SERNA SHIVANI [id number] -1945 [facility] Exm Date: SEPTEMBER 10, 2021@12:11 Req Phys: MARIO SANCHEZ Pat Loc: [facility] E D DAYS M1RD (Req'g Loc) Img Loc: XRAY (OOS) Service: Unknown (Case [id number] COMPLETE) FOOT-3 VIEWS (ROUTINE) (RAD Detailed) CPT:37358 Proc Modifiers : RIGHT Reason for Study: bilat foot pain, hx of gout Clinical History: Report Status: Verified Date Reported: SEPTEMBER 10, 2021 Date Verified: SEPTEMBER 10, 2021 Museum Preparator E-Sig:/ES/ORION ZAVALA Report: Bilateral ankles and bilateral [...] REQUIRED Primary Interpreting Staff: Staff MARY CADENA (Museum Preparator) /September 10, 2021 12:11 PM FOOT-3 VIEWS (ROUTINE): ORION ZAVALA [facility]TE [facility] [place] SERNA [id number] -1945 [facility] Exm Date: SEPTEMBER 10, 2021@12:11 Req Phys: MARIO SANCHEZ Pat Loc: [facility] E D DAYS M1RD (Req'g Loc) Img Loc: XRAY (OOS) Service: Unknown (Case [id number] COMPLETE) FOOT-3 VIEWS (ROUTINE) (RAD Detailed) CPT:70571 Proc Modifiers : LEFT Reason for Study: bilat foot pain, hx of gout Clinical History: Report Status: Verified Date Reported: SEPTEMBER 10, 2021 Date Verified: SEPTEMBER 10, 2021 Museum Preparator E-Sig:/ES/ORION ZAVALA Report: Bilateral ankles and bilateral [...] IMMEDIATE ATTENTION REQUIRED Primary Interpreting Staff: ORION ZAVALA, Staff (Museum Preparator) / September 10, 2021 12:11 PM ANKLE (ROUTINE): ORION ZAVALA [facility] ER T RUPERT SERNA [id number] -1945 [facility] Exm Date: SEPTEMBER 10, 2021@12:11 Req Phys: MARIO SANCHEZ Pat Loc: [facility] E D DAYS M1 (Req'g Loc) Img Loc: XRAY (OOS) Service: Unknown (Case [id number] COMPLETE) ANKLE (ROUTINE) (RAD Detaile d) CPT:72747 Proc Modifiers : RIGHT Reason for Study: bilat foot pain, hx of gout Clinical History: Report Status: Verified Date Reported: SEPTEMBER 10, 2021 Date Verified: SEPTEMBER 10, 2021 Museum Preparator E-Sig:/ALMAZ/ORION ZAVALA Report: Bilateral ankles and bilateral feet, [...] IMMEDIATE ATTENTION REQUIRED Primary Interpreting Staff: Staff MAYR CADENA (Museum Preparator) / September 10, 2021 12:11 PM ANKLE (ROUTINE): ORION ZAVALA [facility] RUPERT SERNA [id number] -1945 [facility] Ex Date: SEPTEMBER 10, 2021@12:11 Req Phys: MARIO SANCHEZ [facility] Loc: [facility] E D DAYS M1 (Req'g Loc) Img Loc: XRAY (OOS) Service: Unknown (Case [id number] COMPLETE) ANKLE (ROUTINE) (RAD Detaile d) CPT:36416 Proc Modifiers : LEFT Reason for Study: bilat foot pain, hx of gout Clinical History: Report Status: Verified Date Reported: SEPTEMBER 10, 2021 Date Verified: SEPTEMBER 10, 2021 Museum Preparator E-Sig:/ES/ORION ZAVALA Report: Bilateral ankles and bilateral [...] development of mild soft tissue swelling in th e medial and lateral aspect of the hindfoot/ankle [...] REQUIRED Primary Interpreting Staff: Staff MARY CADENA (Museum Preparator) / Encounter Notes: All associated encounter notes This section contains the clinical notes associated to the Encounter. Date/Time Encounter Note(s) Provider Source September 14, 2021 08:30 AM PRIMARY CARE ADMINISTRATIVE NOTE: OLIVER MARIA [facility] LOCAL TITLE: Administrative Note/Primary Care STANDARD TITLE: PRIMARY CARE ADMINISTRATIVE NOTE DATE OF NOTE: SEPTEMBER 14, 2021@08:30 ENTRY DATE: SEPTEMBER 14, 2021@08:30:54 AUTHOR: OLIVER SAUCEDA EXP COSIGNER: URGENCY: STATUS: COMPLETED Administrative Note/Primary Care Has ADDEND A [place] was seen in the ER last Monday at [facility]. Nicola meléndez is still having a hard time walking with two canes. [phone] /almaz/ OLIVER SAUCEDA Signed: 09/14/2021 08:31 Receipt Acknowledged By: 09/15/2021 09:10 /almaz/ VIVIANA SANCHEZ MD Staff Physician 09/15/2021 09:23 /almaz/ MATTHEW TIRADO LPN 09/14/2021 ADDENDUM STATUS: COMPLETED Will defer to RN/PCP for advisement. /chip TIRADO LPN Signed: 09/14/2021 11:20 09/15/2021 ADDENDUM STATUS: COMPLETED Please offer acute appointment with me: 09/16 annmarie ne/[facility] or 09/21 F2F. Thank you /almaz/ VIVIANA SANCHEZ MD Staff Physician Signed: 09/15/2021 09:10 Receipt Acknowledged By: 09/15/2021 10:07 /chip SAUCEDA 09/15/2021 ADDENDUM STATUS: COMPLETED [place] agreeable to phone call visit tomorrow a t 1:30 /chip SAUCEDA Signed: 09/15/2021 10:08
--- OUTSIDE RECORDS SUMMARY | 2021-12-31 12:59 | XMS_ITS | Encounter Summary ---
:1945 Author Organization [facility] Address [address] [place] [id number] Support Name Relationship Address Phone CATHERINE SERNA Unavailable [address] [place] [address] COLEMAN, DAUGHTER Unavailable Unavailable Insurance Providers: All [...] MEDICARE MEDICARE PART Oct 22, PART A [id number] DAVIGN ON, PATIENT (WNR) (M) A 2011 UP35 1 RUPERT MEDICARE MEDICARE PART Oct 22, PART A [id number] [id number] WILIAMIGN ON, PATIENT (WNR) (M) A 2011 [id number] 00 RUPERT Selected Encounter This section includes the information on record at [place] for the Encounter. Date/Time Encounter Type Encounter Reason Provider Source Description September 10, 2021 08:34 Outpatient TELEPHONE TRIAGE DOMINIC ALEGRIA AM Encounter [facility] Encounter Template Text not used by [facility] Plan of Treatment: Future Appointments (+ 6 months) and Future Tests (+/- 45 days) The Plan of Treatment section includes future care activities for the patient from all [place] treatmentfacilities. This section includes future appointments and future orders which are active, pending orscheduled.Future Appointments This section includes appointments that were scheduled to occur 6 months from the date of the Encounter, up to a maximum of 20 appointments. The data comes from all [place] treatment facilities. Appointment Date/Time Appointment Type Appointment Facili ty Name September 16, 2021 01:30 PM AMBULATORY - MEDICINE [facility] Oct 21, 2021 10:30 AM AMBULATORY - MEDICINE [facility] Oct 21, 2021 11:00 AM AMBULATORY - MEDICINE [facility] Oct 26, 2021 11:00 AM AMBULATORY - MEDICINE [facility] Dec 23, 2021 02:04 AM AMBUL[place]ORY - [place]IC[place] [facility] Dec 24, 2021 01:00 PM AMBULATORY - MEDICINE [facility] Dec 28, 2021 02:30 PM [facility]BULATORY - [facility]ICINE [place] [facility] Dec 28, 2021 02:31 PM AMBULATORY - NONE [facility] Jan 18, 2022 11:30 AM AMBULATORY - MEDICINE [facility] Lab Results: +/- 30 [...] Range Comment September 10, 2021 [facility] URINALYSIS W/REFLEX Specimen Ty pe: URINE 01:00 PM [facility] TO CULTURE No comment enter ed. Ordering Provid er: MARIO SANCHEZ Report Released Date/Time: September 10, 2021 12:10 PM Reporting Lab: [facility] [address] [address] Performing Lab: [place] [facility] [address] [address] URINE COLOR Yellow YELLOW SPECIFIC GRAVITY 1.018 [...] NEG September 10, 2021 12:15 [place] CRP(INFLAMMATORY) Specimen T ype: PLASMA PM [facility] Comment: Tests performed on Space Ape (405) SN:[id number] Ordering Provid er: MARIO SANCHEZ Report Released Date/Time: September 10, 2021 12:10 PM Reporting Lab: [facility] [address] [address] Performing Lab: [place] [facility] [address] [address] CRP(INFLAMMATORY) 68.2 H 0-5.0 September 10, 2021 12:15 [place] LIVER PROFILE Specimen Typ e: PLASMA PM [facility] Comment: Tests performed on Brito Knife Changer (405) SN:[id number] Ordering Provid er: MARIO SANCHEZ Report Released Date/Time: September 10, 2021 12:10 PM Reporting Lab: [place] [facility] [address] [address] Performing Lab: [place] [facility] [address] [address] [address] PROTEIN, TOTAL 8.1 6.0-8.5 ALBUMIN 3.3 3.2-5.0 BILIRUBIN, TOTAL 0.6 0.2-1.2 ALKALINE PHOSPHATASE 118 40-150 ALT(SGPT) 14 7-52 AST(SGOT) 18 5-34 FIB-4 SCORE 0.87 <2.67 September 10, 2021 12:15 PM [place] URIC ACID Specimen Type: PLASMA [facility] Comment: Tests performed on Brito Knife Changer (405) SN:[id number] Ordering Provid er: MARIO SANCHEZ Report Released Date/Time: September 10, 2021 12:10 PM Reporting Lab: [place] [facility] [address] [address] Performing Lab: [place] [facility] [address] [address] URIC ACID 6.3 3.3-8.7 September 10, 2021 [place] P4 GLU,BUN,CREAT,LYTES,CA Speci men Type: PLASMA 12:15 PM [facility] Comment: Tests performed on Brito Knife Changer (405) SN:[id number] Ordering Provid er: MARIO SANCHEZ Report Released Date/Time: September 10, 2021 12:10 PM Reporting Lab: [place] [facility] [address] [address] Performing Lab: [place] [facility] [address] [facility] [address] UREA NITROGEN 17 7-25 SODIUM 138 135-145 POTASSIUM 3.8 3.5-5.0 CHLORIDE 102 100-110 CARBON DIOXIDE 22 20-30 ANION GAP 14 4-16 GLUCOSE 130 H 65-100 CREATININE 1.25 0.5-1.5 CALCIUM 8.2 L 8.5-10.5 eGFR(CKD-EPI 2020) 60 >60 September 10, 2021 12:15 [facility] CBC PROFILE Specimen Typ e: BLOOD PM [facility] No comment enter ed. Ordering Provid er: MARIO SANCHEZ Report Released Date/Time: September 10, 2021 12:10 PM Reporting Lab: [facility] [address] [address] [address] Performing Lab: [facility] [address] [address] WBC 15.5 H 4.5-11.0 RBC 4.84 4.23-5.66 [...] NRBC 0.00 0-0 September 10, 2021 11:30 [facility] COVID-19 AG SCREEN Specimen Type: NASAL CAVITY [facility] BINAX(405) Comment: Testi ng Performed By: Nicole Bowen Ordering Provid er: RAJENDRA OLIVARES Report Released Date/Time: September 14, 2021 10:11 AM Reporting Lab: [place] [facility] [address] [address] Performing Lab: [place] [facility] [address] [address] COVID-19 AG SCRN(wrj BINAX) NEGATIVE NE G Vital Signs: All taken on the encounter date This section contains inpatient and outpatient Vital Signs collected on the date of the Encounter. Date/Time Temperature Pulse Blood Respiratory SP02 Pain Height Weight Eugenio dy Source Pressure Rate Mass Index September 10, 98.7 F 96 141/86 22 /min 96 % 10 [place] 2021 11:39 /min mm[Hg] [place] [facility] Social History: Smoking Status (Most current) and Tobacco Use (All prior to encounter date) This section includes the most current, and the historical, smoking and tobacco-related health factors from the [place] facility where the Encounter took place.Current Smoking Status This section includes the most current smoking, or tobacco-related health factor, from the [place] facility where the Encounter took place. Date/Time Current Smoking Status Comment Facility September 10, 2021 11:25 AM QUIT TOBACCO USE > 7 YEARS AGO [place] [facility] Tobacco Use History This section includes a history of the smoking, or tobacco- related health factors, that were collected on or before the date of the Encounter. The data comes from the [place] facility where the Encounter took place. Date/Time Smoking Status/Tobacco Use Comment [facility] [place] Dec 19, 2017 11:42 AM QUIT TOBACCO USE > 7 YEARS [place] A[place] Former user of tobacco products quit 27 yrs ago [facility] Oct 26, 2016 09:17 AM QUIT TOBACCO USE > 7 YEARS [place] A[place] [facility] Jan 07, 2016 09:58 AM QUIT TOBACCO USE > 7 YEARS [place] AGO [facility] September 09, 2008 10:31 AM QUIT TOBACCO USE > 7 YEARS [place] AGO 8 yrs. [facility] August 29, 2007 08:57 AM QUIT TOBACCO USE 1-7 YEARS [place] AGO [facility] Feb 22, 2007 11:44 AM QUIT TOBACCO USE IN PAST [place] YEAR [facility] August 28, 2006 12:57 PM QUIT TOBACCO USE 1-7 YEARS [place] AGO 5 yrs. ago [facility] August 22, 2005 10:55 AM QUIT TOBACCO USE 1-7 YEARS [place] quit 4 yr ago [facility] August 27, 2004 01:30 PM HISTORY OF SMOKING [place] 12/25 [facility] August 27, 2004 01:30 PM QUIT TOBACCO USE IN PAST W [place] YEAR 2 years [facility] Dec 19, 2003 01:13 PM QUIT TOBACCO USE IN PAST W [place] YEAR [facility] September 05, 2003 02:45 PM HISTORY OF SMOKING [place] quit 12/25 [facility] September 05, 2003 02:45 PM QUIT TOBACCO USE IN PAST W [place] YEAR quit 12/26 [facility] Mar 27, 2002 11:07 AM CURRENT SMOKER [place] Pt. smokes 1 ppd. [facility] Mar 14, 2001 03:27 PM CURRENT SMOKER [place] [facility] Advance Directives: All historical and current Section Date Range: From patient's date of to the date document was created. This section includes ALL of a patient's completed or amended [place] Advance and Rescinded Directives. The entries below indicate that a directive exists for the patient, but an actual copy is not included with this document. The data comes from all [place] facilities. Date Advance Directives Provider Source Apr 06, 2010 ADVANCE DIRECTIVE FRANKLYN FRANKORAH [place] [facility] Radiology Reports: +/- 30 days of the [...] the Encounter. The data comes from all [place] treatment facilities. Date/Time Radiology Report Provider Source September 10, 2021 12:11 PM FOOT-3 VIEWS (ROUTINE): ORION ZAVALA [place] RUPERT SERNA [id number] -1945 M [facility] Exm Date: SEPTEMBER 10, 2021@12:11 Req Phys: MARIO SANCHEZ Pat Loc: [facility] E D DAYS M1 (Req'g Loc) Img Loc: XRAY (OOS) Service: Unknown (Case [id number] COMPLETE) FOOT-3 VIEWS (ROUTINE) (RAD Detailed) CPT:88710 Proc Modifiers : RIGHT Reason for Study: bilat foot pain, hx of gout Clinical History: Report Status: Verified Date Reported: SEPTEMBER 10, 2021 Date Verified: SEPTEMBER 10, 2021 Construction Job Titles E-Sig:/ES/ORION ZAVALA Report: Bilateral ankles and bilateral [...] NO IMMEDIATE ATTENTION REQUIRED Primary Interpreting Staff: OIRON ZAVALA, Staff (Construction Job Titles) / September 10, 2021 12:11 PM FOOT-3 VIEWS (ROUTINE): ORION ZAVALA ITE [facility] RUPERT SERNA [id number] -1945 M [facility] Exm Date: SEPTEMBER 10, 2021@12:11 Req Phys: MARIO SANCHEZ Pat Loc: [facility] E D DAYS M1 (Req'g Loc) Img Loc: XRAY (OOS) Service: Unknown (Case [id number] COMPLETE) FOOT-3 VIEWS (ROUTINE) (RAD Detailed) CPT:58784 Proc Modifiers : LEFT Reason for Study: bilat foot pain, hx of gout Clinical History: Report Status: Verified Date Reported: SEPTEMBER 10, 2021 Date Verified: SEPTEMBER 10, 2021 Construction Job Titles E-Sig:/ES/ORION ZAVALA Report: Bilateral ankles and bilateral [...] REQUIRED Primary Interpreting Staff: Staff MARY CADENA (Construction Job Titles) / September 10, 2021 12:11 PM ANKLE (ROUTINE): ORION ZAVALA [facility] SWAINRUPERT HOFFMANN SHIVANI [id number] -1945 M [facility] Exm Date: SEPTEMBER 10, 2021@12:11 Req Phys: MARIO SANCHEZ Pat Loc: [facility] E D DAYS M1 (Req'g Loc) Img Loc: XRAY (OOS) Service: Unknown (Case [id number] COMPLETE) ANKLE (ROUTINE) (RAD Detaile d) CPT:43355 Proc Modifiers : LEFT Reason for Study: bilat foot pain, hx of gout Clinical History: Report Status: Verified Date Reported: SEPTEMBER 10, 2021 Date Verified: SEPTEMBER 10, 2021 Construction Job Titles E-Sig:/ES/ORION ZAVALA Report: Bilateral ankles and bilateral [...] REQUIRED Primary Interpreting Staff: Staff MARY CADENA (Construction Job Titles) / September 10, 2021 12:11 PM ANKLE (ROUTINE): ORION ZAVALA [facility] ER T RUPERT SERNA SHIVANI [id number] -1945 [facility] Ex Date: SEPTEMBER 10, 2021@12:11 Req Phys: MARIO SANCHEZ Loc: WRJ E D DAYS M1RD (Req'g Loc) Img Loc: XRAY (OOS) Service: Unknown (Case [id number] COMPLETE) ANKLE (ROUTINE) (RAD Detaile d) CPT:74157 Proc Modifiers : RIGHT Reason for Study: bilat foot pain, hx of gout Clinical History: Report Status: Verified Date Reported: SEPTEMBER 10, 2021 Date Verified: SEPTEMBER 10, 2021 Construction Job Titles E-Sig:/ES/ORION ZAVALA Report: Bilateral ankles and bilateral [...] REQUIRED Primary Interpreting Staff: ORION ZAVALA Staff (Construction Job Titles) / Encounter Notes: All associated encounter notes This section contains the clinical notes associated to the Encounter. Date/Time Encounter Note(s) Provider Source September 10, 2021 08:34 AM RN PROGRESS NOTE: SARBJIT ALEGRIA [place] LOCAL TITLE: CCC: CLINICAL TRIAGE [facility] STANDARD TITLE: RN PROGRESS NOTE DATE OF NOTE: SEPTEMBER 10, 2021@08:34:34 ENTRY DATE: SEPTEMBER 10, 2021@08:34:34 AUTHOR: SARBJIT ALEGRIA EXP COSIGNER: URGENCY: STATUS: COMPLETED Patient Demographics Patient Name: RUPERT SERNA Patient Primary Address: [address] [place] [address] Patient : 1945 Patient Age: 75 Patient Primary Phone: [phone] SSN: [id number] Caller Relationship: Self Triage Summary Nurse Summary: will seek ER evaluation a s recommended by YENIFER He declines local hospital will come to [facility] E D ETA 12 noon. Encouraged him to go to [facility] if any s udden worsening of symptoms Conducted triage/discussed symptoms Chief Complaint: Foot Pain System WHEN: Now System WHERE: Emergency department Pain Score: 10 (Severe Pain) Utilized the Triage Tool: Yes Nurse's Recommendation / WHEN: Now Nurse's Recommendation / WHERE: ED [facility] Patient Disposition Patient/Caregiver agrees to plan of care: Yes Summary of Actions Referred patient to emergency services Instructed to go to Emergency Department Clinical Contact Center Codes Clinic/Location: [facility] PHONE CCC RN TXCC Triage Complete Triage Note: Phone Triage 10 Sep 2021 12:25:35 +0000 [facility] Demographics 75 y/o Male Results CC: Foot Pain Nurse selected: Now Nurse selected follow-up location: Emergency de partment Software suggested: Now Software suggested follow-up location: Emergenc y department Values and Measures Duration of CC: 2 Days Alerts 1) This is a HIGHER COMPLEXITY patient. Positive Responses HPI: foot pain, severe HPI: foot pain, worsening Negative Responses Denies: HPI: foot injury, within past 2 days Denies: HPI: heel pain, moderate to severe Denies: HPI: heel pain, severe Denies: HPI: leg pain, localized to ankle Denies: HPI: numbness, foot or leg, sudden onse t Denies: HPI: one leg is cool to touch Denies: HPI: pale or arriaga discoloration in one leg Denies: HPI: toe pain, localized to toenail or periungual skin Denies: HPI: toe pallor [place] Education Verbal Education Provided: Based on your responses, you should be treated in the emergency room. Take action: You need to see a provider now or your conditio n could worsen. A prolonged loss of blood flow to an limb can c ause irreversible damage. /es/ SARBJIT ALEGRIA Clinical Contact Center email marketing coordinator Signed: 09/10/2021 08:34 Receipt Acknowledged By: * AWAITING SIGNATURE * KAREN BOWEN 09/10/2021 08:43 /es/ SARAH DUPONT REGISTERED NURSE
--- OUTSIDE RECORDS SUMMARY | 2021-12-31 12:59 | XMS_ITS | Encounter Summary ---
:1945 Author Organization [facility] Address [address] [place] [address] Support Name Relationship Address Phone CATHERINE SERNA Unavailable [address] [phone] [place] [address] COLEMAN, DAUGHTER Unavailable Unavailable Insurance Providers: All [...] MEDICARE MEDICARE PART Oct 22, PART A [id number] WILIAMIGN ON, PATIENT (WNR) (M) A 2011 UP35 1 RUPERT MEDICARE MEDICARE PART Oct 22, PART A [id number] [id number] KATIE ON, PATIENT (WNR) (M) A 2011 52A 00 RUPERT Selected Encounter This section includes the information on record at ME for the Encounter. Date/Time Encounter Type Encounter Reason Provider Source Description September 16, 2021 Outpatient TELEPHONE PRIMARY ICD-10-CM M10.9 LORENZA-F RO 01:30 PM Encounter CARE Gout, unspecified BRENDA KRAMER with Provider Comments: Gout (SCT [id number]) IHE Encounter Template Text not used by ME Assessments - Encounter Diagnoses This section includes the primary and secondary diagnoses documented for the Encounter. Date/Time Primary/Secondary Diagnosis Name Provider Source Diagnosis September 16, 2021 PRIMARY Gout, unspecified [facility] 01:30 PM BRENDA Gonzales [facility] Plan of Treatment: Future Appointments (+ 6 months) and Future Tests (+/- 45 days) The Plan of Treatment section includes future care activities for the patient from all ME treatmentfacilities. This section includes future appointments and [...] 02:04 AM AMBULATORY - MEDICINE [place] [facility] Dec 24, 2021 01:00 PM AMBULATORY - [facility]ICINE [facility] Dec 28, 2021 02:30 PM [facility] Dec 28, 2021 02:31 PM AMBULATORY [...] Interpretation Reference Range Comment September 10, 2021 [facility] URINALYSIS W/REFLEX Specimen Ty pe: URINE 01:00 PM [facility] TO CULTURE No comment enter ed. Ordering Provid er: MARIO SANCHEZ Report Released Date/Time: September 10, 2021 12:10 PM Reporting Lab: [facility] [address] [facility] [address] Performing Lab: [facility] [address] [facility] [address] URINE COLOR Yellow YELLOW SPECIFIC GRAVITY 1.018 [...] SCREEN NEG NEG September 10, 2021 12:15 PM [place] URIC ACID Specimen Type: PLASMA [facility] Comment: Tests performed on [facility] Clinical Manager (405) SN:[id number] Ordering Provid er: MARIO SANCHEZ Report Released Date/Time: September 10, 2021 12:10 PM Reporting Lab: [place] [facility] [address] [facility] [address] Performing Lab: [place] [facility] [address] [facility] [address] URIC ACID 6.3 3.3-8.7 September 10, 2021 12:15 [place] CRP(INFLAMMATORY) Specimen T ype: PLASMA PM [facility] Comment: Tests performed on [facility] Clinical Manager (405) SN:[id number] Ordering Provid er: MARIO SANCHEZ Report Released Date/Time: September 10, 2021 12:10 PM Reporting Lab: [place] [facility] [address] [facility] [address] Performing Lab: [place] [facility] [address] [facility] [address] CRP(INFLAMMATORY) 68.2 H 0-5.0 September 10, 2021 [place] P4 GLU,BUN,CREAT,LYTES,CA Speci men Type: PLASMA 12:15 PM [facility] Comment: Tests performed on [facility] Clinical Manager (405) SN:[id number] Ordering Provid er: MARIO SANCHEZ Report Released Date/Time: September 10, 2021 12:10 PM Reporting Lab: [place] [facility] [address] [facility] [address] Performing Lab: [place] [facility] [address] [facility] [address] UREA NITROGEN 17 7-25 SODIUM 138 135-145 POTASSIUM 3.8 3.5-5.0 CHLORIDE 102 100-110 CARBON DIOXIDE 22 20-30 ANION GAP 14 4-16 GLUCOSE 130 H 65-100 CREATININE 1.25 0.5-1.5 CALCIUM 8.2 L 8.5-10.5 eGFR(CKD-EPI 2020) 60 >60 September 10, 2021 12:15 [place] LIVER PROFILE Specimen Typ e: PLASMA PM [facility] Comment: Tests performed on [facility] Clinical Manager (405) SN:[id number] Ordering Provid er: MARIO SANCHEZ Report Released Date/Time: September 10, 2021 12:10 PM Reporting Lab: [facility] [address] [facility] [address] Performing Lab: [facility] [address] [facility] [address] PROTEIN, TOTAL 8.1 6.0-8.5 ALBUMIN 3.3 3.2-5.0 BILIRUBIN, TOTAL 0.6 0.2-1.2 ALKALINE PHOSPHATASE 118 40-150 ALT(SGPT) 14 7-52 AST(SGOT) 18 5-34 FIB-4 SCORE 0.87 <2.67 September 10, 2021 12:15 [facility] CBC PROFILE Specimen Typ e: BLOOD PM [facility] No comment enter ed. Ordering Provid er: MARIO SANCHEZ Report Released Date/Time: September 10, 2021 12:10 PM Reporting Lab: [facility] [address] [facility] [address] Performing Lab: [facility] [address] [facility] [address] WBC 15.5 H 4.5-11.0 RBC 4.84 4.23-5.66 [...] NRBC 0.00 0-0 September 10, 2021 11:30 [place] COVID-19 AG SCREEN Specimen Type: NASAL CAVITY AM VAOC PANEL BINAX(405) Comment: Testi ng Performed By: Nicole Ramirez Ordering Provid er: RAJENDRA OLIVARES Report Released Date/Time: September 14, 2021 10:11 AM Reporting [facility] [address] [facility] [address] Performing Lab: [facility] [address] [facility] [address] COVID-19 AG SCRN(wrj BINAX) NEGATIVE NE G [...] Facility Nov 16, 2020 10:30 AM VA-TOBACCO QUIT 15 YRS OR MORE [facility] Tobacco Use History This section includes a history of the smoking, or tobacco- related health factors, that were collected on or before the date of the Encounter. The data comes from the ME facility where the Encounter took place. Date/Time Smoking Status/Tobacco Use Comment [facility] Nov 16, 2020 10:30 AM VA-TOBACCO QUIT 15 YRS OR MORE [facility] September 06, 2018 11:34 AM [facility] September 06, 2018 11:34 AM VA-TOBACCO QUIT 15 YRS OR MORE [facility] Advance Directives: All historical and [...] 06, 2010 ADVANCE [address] SV[address]NA FRANK CT [facility] Reports: +/- 30 days of the [...] 12:11 PM FOOT-3 VIEWS (ROUTINE): ORION ZAVALA ITDanielle [place] [facility] RUPERT SERNA [id number] -1945 M [facility] Exm Date: SEPTEMBER 10, 2021@12:11 Req Phys: MARIO SANCHEZ Pat Loc: [facility]J E D DAYS M1 (Req'g Loc) Img Loc: XRAY (OOS) Service: Unknown (Case [id number] COMPLETE) FOOT-3 VIEWS (ROUTINE) (RAD Detailed) CPT:88017 Proc Modifiers : RIGHT Reason for Study: bilat foot pain, hx of gout Clinical History: Report Status: Verified Date Reported: SEPTEMBER 10, 2021 Date Verified: SEPTEMBER 10, 2021 Purchasing Clerk E-Sig:/ES/ORION ZAVALA Report: Bilateral ankles and bilateral [...] REQUIRED Primary Interpreting Staff: Staff MARY CADENA (Purchasing Clerk) / September 10, 2021 12:11 PM FOOT-3 VIEWS (ROUTINE): ORION ZAVALA [facility] RUPERT SERNA SHIVANI [id number] -1945 M [facility] Ex Date: SEPTEMBER 10, 2021@12:11 Req Phys: MARIO SANCHEZ Pat Loc: WRJ E D DAYS M1RD (Req'g Loc) Img Loc: XRAY (OOS) Service: Unknown (Case [id number] COMPLETE) FOOT-3 VIEWS (ROUTINE) (RAD Detailed) CPT:29086 Proc Modifiers : LEFT Reason for Study: bilat foot pain, hx of gout Clinical History: Report Status: Verified Date Reported: SEPTEMBER 10, 2021 Date Verified: SEPTEMBER 10, 2021 Purchasing Clerk E-Sig:/ES/ORION ZAVALA Report: Bilateral ankles and bilateral [...] REQUIRED Primary Interpreting Staff: ORION ZAVALA Staff (Purchasing Clerk) /September 10, 2021 12:11 PM ANKLE (ROUTINE): ORION ZAVALA [facility] WILSONRUPERT ÁLVAREZ SHIVANI [id number] -1945 M [facility] Exm Date: SEPTEMBER 10, 2021@12:11 Req Phys: MARIO SANCHEZ Pat Loc: WRJ E D DAYS M1RD (Req'g Loc) Img Loc: XRAY (OOS) Service: Unknown (Case [id number] COMPLETE) ANKLE (ROUTINE) (RAD Detaile d) CPT:83462 Proc Modifiers : RIGHT Reason for Study: bilat foot pain, hx of gout Clinical History: Report Status: Verified Date Reported: SEPTEMBER 10, 2021 Date Verified: SEPTEMBER 10, 2021 Purchasing Clerk E-Sig:/ES/ORION ZAVALA Report: Bilateral ankles and bilateral [...] REQUIRED Primary Interpreting Staff: Staff MARY CADENA (Purchasing Clerk) / September 10, 2021 12:11 PM ANKLE (ROUTINE): ORION ZAVALA [place] SERNA [id number] -1945 [facility] Exm Date: SEPTEMBER 10, 2021@12:11 Req Phys: MARIO SANCHEZ Pat Loc: WRJ E D DAYS M1 (Req'g Loc) Img Loc: XRAY (OOS) Service: Unknown (Case [id number] COMPLETE) ANKLE (ROUTINE) (RAD Detaile d) CPT:46779 Proc Modifiers : LEFT Reason for Study: bilat foot pain, hx of gout Clinical History: Report Status: Verified Date Reported: SEPTEMBER 10, 2021 Date Verified: SEPTEMBER 10, 2021 Purchasing Clerk E-Sig:/ES/ORION ZAVALA Report: Bilateral ankles and bilateral [...] REQUIRED Primary Interpreting Staff: ORION ZAVALA Staff (Purchasing Clerk) / Encounter Notes: All associated encounter notes This section contains the clinical notes associated to the Encounter. Date/Time Encounter Note(s) Provider Source September 16, 2021 01:55 PM NONVA MEDICATION MGT NOTE: REGINA SANCHEZ [facility] LOCAL TITLE: Prescription Slip for NonVA Pharma cy PHINE STANDARD TITLE: NONVA MEDICATION MGT NOTE DATE OF NOTE: SEPTEMBER 16, 2021@13:55 ENTRY DATE: SEPTEMBER 16, 2021@13:55:37 AUTHOR: JOCELYN SANCHEZ EXP COSIGNER: URGENCY: STATUS: COMPLETED Prescription Slip for NonVA Pharmacy Has AD PELON [facility] [address] [place] [address] Patient: Date: SEPTEMBER 16, 2021 RUPERT SERNA [address] [place] [id number] :Oct Medication: Prednisone 5mg tablets Quantity: 53 Sig: Take 40mg for 5 days then 30mg for 1 day t hen 20mg for 1 day then 10mg for 1 day and finally 5mg for 1 day Refills: 0 Substitution Permitted NPI # [id number] TRAVIS Bruno Sanchez MD August // VIVIANA SANCHEZ MD Staff Physician 09/16/2021 ADDENDUM STATUS: COMPLETED Please send to mojgan with voucher /chip SANCHEZ MD Staff Physician Signed: 09/16/2021 13:59 Receipt Acknowledged By: 09/16/2021 14:15 /chip SAUCEDA 09/16/2021 ADDENDUM STATUS: COMPLETED Printed and faxed with voucher to [employer] /chip SAUCEDA Signed: 09/16/2021 14:16 September 16, 2021 01:43 PM PRIMARY CARE TELEPHONE ENCOUNTER NOTE: REGINA SANCHEZ [facility] LOCAL TITLE: Telephone Note-Primary Care [facility] STANDARD TITLE: PRIMARY CARE TELEPHONE ENCOUNTER NOTE DATE OF NOTE: SEPTEMBER 16, 2021@13:43 ENTRY DATE: SEPTEMBER 16, 2021@13:43:32 AUTHOR: JOCELYN SANCHEZ EXP COSIGNER: URGENCY: STATUS: COMPLETED Work Phone: NONE Cell phone: Telephone Note - Primary Care # Gout, ongoing flare? Discussed with patient who i s frustrated about his gout management. He very much wants another cuorse of steroids. Pain 10/10. Di d improve with steroids prior course and then worsened aga in as soon as stopped. He requests to be on steroids continuously and we discussed the reason that th is is not possible. - Prednisone course + taper - Continue Allopurinol 300mg + Colchicine overla p - Would like to follow with Rheumatology - Counseling on EtOH (reports has not had in a c ouple weeks) # RTC F2F 1 month, uric acid check beforehnad /chip SANCHEZ MD Staff Physician Signed: 10/25/2021 21:37
--- OUTSIDE RECORDS SUMMARY | 2021-12-31 12:59 | XMS_ITS | Encounter Summary ---
:1945 Author Organization [facility] Address [address] [place] [address] Support Name Relationship Address Phone CATHERINE SERNA Unavailable [address] [address] COLEMAN, DAUGHTER Unavailable Unavailable Insurance Providers: All [...] MEDICARE MEDICARE PART Oct 22, PART A [id number] DAVIGN ON, PATIENT (WNR) (M) A 2011 UP35 1 RUPERT MEDICARE MEDICARE PART Oct 22, PART A [id number] [phone] WILIAMIGN ON, PATIENT (WNR) (M) A 2011 52A 00 RUPERT Selected Encounter This section includes the information on record at ID for the Encounter. Date/Time Encounter Type Encounter Description Reason Provider Source Oct 12, 2021 08:46 Outpatient Encounter TELEPHONE TRIAGE AM IHE Encounter Template Text not used by ID Plan of Treatment: Future Appointments (+ 6 months) and Future Tests (+/- 45 days) The Plan of Treatment section includes future care activities for the patient from all ID treatmentfacilities. This section includes future appointments and future orders which are active, pending orscheduled.Future Appointments This section includes appointments that were scheduled to occur 6 months from the date of the Encounter, up to a maximum of 20 appointments. The data comes from all ID treatment facilities. Appointment Date/Time Appointment Type Appointment Facili ty Name Oct 21, 2021 10:30 AM AMBULATORY - MEDICINE [facility] Oct 21, 2021 11:00 AM AM[facility] - [facility]ICINE [facility] Oct 26, 2021 11:00 AM [facility] - MEDICINE [facility] Dec 23, 2021 02:04 AM [facility] Dec 24, 2021 01:00 PM [facility] - [facility]ICINE [facility] Dec 28, 2021 02:30 PM [facility] Dec 28, 2021 02:31 PM AMBULATORY - NONE [facility] Jan 18, 2022 11:30 AM AM[facility] - MEDICINE [facility] Lab Results: +/- 30 days of the encounter This section includes the Chemistry and Hematology Lab Results on record with ID for the patient. Radiology Reports and Pathology Reports are provided separately, in subsequent sections.Lab Results This section contains the Chemistry/Hematology Results that were resulted 30 days before or 30 daysafter the date of the Encounter. Date/Time Source Result Type Result - Unit Interpretation Reference Range Comment Oct 21, 2021 10:22 [facility] PHOSPHORUS Specimen T ype: PLASMA AM Comment: Tests performed on PEER (405) SN:[id number] Ordering Provid er: BRENDA SANCHEZ Report Released Date/Time: Aug 12, 2021 01:20 PM Reporting [facility] [address] [facility] [address] Performing Lab: [facility] [address] [facility] [address] PHOSPHORUS 3.4 2.5-5.0 Oct 21, 2021 10:22 [facility] URIC ACID Specimen T ype: PLASMA AM Comment: Tests performed on PEER (405) SN:[id number] Ordering Provid er: BRENDA SANCHEZ Report Released Date/Time: Aug 12, 2021 01:20 PM Reporting Lab: [facility] [address] [facility] [address] Performing Lab: [facility] [address] [facility] [address] URIC ACID 5.6 3.3-8.7 Oct 21, 2021 [place] [address] GLU,BUN,CREAT,LYTES,CA Speci men Type: PLASMA 10:22 AM CLINIC Comment: Tests performed on PEER (405) SN:[id number] Ordering Provid er: BRENDA SACNHEZ Report Released Date/Time: Aug 12, 2021 01:20 PM Reporting Lab: [facility] [address] [facility] [address] Performing Lab: [facility] [address] [facility] [address] UREA NITROGEN 29 H 7-25 SODIUM 138 [...] smoking and tobacco-related health factors from the ID facility where the Encounter took place.Current Smoking Status This section includes the most current smoking, or tobacco-related health factor, from the ID facility where the Encounter took place. Date/Time Current Smoking Status Comment Facility September 10, 2021 11:25 AM QUIT TOBACCO USE > 7 YEARS AGO [place] [facility] Tobacco Use History This section includes a history of the smoking, or tobacco- related health factors, that were collected on or before the date of the Encounter. The data comes from the ID facility where the Encounter took place. Date/Time Smoking Status/Tobacco Use Comment [facility] Dec 19, 2017 11:42 AM QUIT TOBACCO USE > 7 YEARS [place] AGO Former user of tobacco products quit 27 yrs ago [facility] Oct 26, 2016 09:17 AM QUIT TOBACCO USE > 7 YEARS [place] AGO [facility] Jan 07, 2016 09:58 AM QUIT TOBACCO USE > 7 YEARS [place] AGO [facility] September 09, 2008 10:31 AM QUIT TOBACCO USE > 7 YEARS [place] AGO 8 yrs. [facility] August 29, 2007 08:57 AM QUIT TOBACCO USE 1-7 YEARS [place] AGO [facility] Feb 22, 2007 11:44 AM QUIT TOBACCO USE IN PAST [place] YEAR [facility] August 28, 2006 12:57 PM QUIT TOBACCO USE 1-7 YEARS [place] AGO 5 yrs. ago [facility] August 22, 2005 10:55 AM QUIT TOBACCO USE 1-7 YEARS [place] A[place] quit 4 yr ago [facility] August 27, 2004 01:30 PM HISTORY OF SMOKING [place] 12/25 [facility] August 27, 2004 01:30 PM QUIT TOBACCO USE IN PAST [place] YEAR 2 years [facility] Dec 19, 2003 01:13 PM QUIT TOBACCO USE IN PAST [place] YEAR [facility] September 05, 2003 02:45 PM HISTORY OF SMOKING [place] quit 12/25 [facility] September 05, 2003 02:45 PM QUIT TOBACCO USE IN PAST [place] YEAR quit 12/26 [facility] Mar 27, 2002 11:07 AM CURRENT SMOKER [place] Pt. smokes 1 ppd. [facility] Mar 14, 2001 03:27 PM CURRENT SMOKER [place] [facility] Advance Directives: All historical and current Section Date Range: From patient's date of to the date document was created. This section includes ALL of a patient's completed or amended ID Advance and Rescinded Directives. The entries below indicate that a directive exists for the patient, but an actual copy is not included with this document. The data comes from all ID facilities. Date Advance Directives Provider Source Apr 06, 2010 ADVANCE DIRECTIVE SVETLANA FRANK J CT [facility] Encounter Notes: All associated encounter notes This section contains the clinical notes associated to the Encounter. Date/Time Encounter Note(s) Provider Source Oct 12, 2021 08:46 AM PRIMARY CARE ADMINISTRATIVE NOTE: [facility] LOCAL TITLE: Administrative Note/Primary Care STANDARD TITLE: PRIMARY CARE ADMINISTRATIVE NOTE DATE OF NOTE: OCT 12, 2021@08:46 ENTRY DATE: OCT 12, 2021@08:46:07 AUTHOR: OLIVER SAUCEDA EXP COSIGNER: URGENCY: STATUS: COMPLETED Administrative Note/Primary Care Has ADDEND A [facility] called. He is using two canes to walk and they don't feel like the meds are working. The pr ednisone helps temporarily but after two weeks he is right back to the same. [phone]. /almaz/ OLIVER SAUCEDA Signed: 10/12/2021 08:48 Receipt Acknowledged By: 10/13/2021 17:24 /es/ VIVIANA SANCHEZ MD Staff Physician 10/13/2021 10:34 /es/ SARAH DUPONT REGISTERED NURSE 10/12/2021 ADDENDUM STATUS: COMPLETED Patient and reports tae t prednisone is the only thing that truly helps his pain at this point. Is taking Allopurinol 300mg PO QD as pre scribed. Also, taking Colchicine PO QD as prescribed. He reports also that he has been taking 100mg of allopurinol in the evening as well as he had 100mg tablets on hand from previo rx. He has taken the extra 100mg in the evening for two days. Yesterday aft ernoon/evening and today just now. They report when this has mercado ppened in the past he takes prednisone and it's the only thing that works and he is good while taking but when he is done he is back to being immobile again. Takes him a week and a half to get on my feet after these flare-ups. Patient and report that he cannot walk at t his point. They both express extreme frustration with his ailments. TW senses they do not have a good understanding of his treatment. This is stupid and we need to fix things now before I lose another summer of my life. I'll ta ke whatever medicine helps. I don't care if it kills me ju st so long as I can do what I want to do while I am alive. Reports pain level is 10/10. Way above 10. It i s up in the 20's and my left foot is swollen again. Patient reports foot left is red and warm to touch. He reports the swelling has been back since Monday last week 10/04/2021. Ususally when he is swollen he can still walk. He reports this is getting w orse and worrse everyday and he cannot support himself. Left ankle is swollen way up. RIght one has pain too but it is not swollen yet. Not yet anyway. Likely will be tomorrow. He reporst hydrating well with H20 and a lso using H20 to take his medications. He expresses severe frustrat ion as he feels as he is bed ridden and upset as he is going to miss his sister this Monday. Forwarding to PCP. /almaz/ MATTHEW TIRADO LPN Signed: 10/12/2021 16:26 Receipt Acknowledged By: * AWAITING SIGNATURE * BRENDA SANCHEZ 10/13/2021 ADDENDUM STATUS: COMPLETED and following up with concerns - #[phone] /almaz/ TONY DANGELO Signed: 10/13/2021 09:44 Receipt Acknowledged By: 10/13/2021 10:33 /es/ SARAH DUPONT REGISTERED NURSE 10/13/2021 ADDENDUM STATUS: COMPLETED Called and spoke with [place]. He is agreeable to a PCP scheduled phone call ap pt this afternoon at 2:00pm. Offered CVT in [place]: declines. States he boris ot get here due to pain. Also offered VVC but declines as he does not have the technology available for this. States he is upset his sister passed tamar y, is scheduled for Monday and he does not believe he will be able to attend due to pain in left foot. Extended sympathy and offered support if needed. Please schedule 2:00 PCP appt this afternoon via TELEPHONE : [phone] (confirmed this number is the best number to callie ch him at 2:00pm today 10/13/2021). /almaz/ SARAH DUPONT REGISTERED NURSE Signed: 10/13/2021 10:37 Receipt Acknowledged By: 10/13/2021 17:24 /almaz/ VIVIANA SANCHEZ MD Staff Physician 10/13/2021 10:50 /almaz/ TONY DANGELO 10/13/2021 ADDENDUM STATUS: COMPLETED Patient was accidentally scheduled tomorrow at a time when I already have patients scheduled. Will try to call him earlier . /almaz/ VIVIANA SANCHEZ MD Staff Physician Signed: 10/13/2021 17:24 10/14/2021 ADDENDUM STATUS: COMPLETED spoke with this am - he restates he is home waiting for medication so he can get on his feet and can take a call at any p oint today #[phone]. /almaz/ TONY DANGELO Signed: 10/14/2021 08:09 10/15/2021 ADDENDUM STATUS: COMPLETED [facility] called to see if they would hear from anyone today before the weekend. [phone]. I did do a warm transfer to [facility] triage due to the pain and swelling. /almaz/ OLIVER SAUCEDA Signed: 10/15/2021 11:19 Receipt Acknowledged By: * AWAITING SIGNATURE * BRENDA SANCHEZ * AWAITING SIGNATURE * MATTHEW TIRADO * AWAITING SIGNATURE * SARAH DUPONT V
--- OUTSIDE RECORDS SUMMARY | 2021-12-31 12:59 | XMS_ITS | Encounter Summary ---
:1945 Author Organization [facility] Address [address] [place] [id number] Support Name Relationship Address Phone CATHERINE SERNA Unavailable [address] [phone] [place] [address] COLEMAN, DAUGHTER Unavailable Unavailable Insurance Providers: All [...] MEDICARE MEDICARE PART Oct 22, PART A [id number] DAVIGN ON, PATIENT (WNR) (M) A 2011 UP35 1 RUPERT MEDICARE MEDICARE PART Oct 22, PART A [id number] [phone] WILIAMIGN ON, PATIENT (WNR) (M) A 2011 52A 00 RUPERT Selected Encounter This section includes the information [facility] for [facility]. Date/Time Encounter Type Encounter Reason Provider Source Description September 10, 2021 EMERGENCY DEPT EMERGENCY DEPT ICD-10-CM M79.673 YARI SOLANO 11:25 AM VISIT Pain in PERRY SEJAL unspecified foot with Provider Comments: Pain in unspecified Foot IHE Encounter Template Text not used by [facility] Assessments - Encounter Diagnoses This section includes the primary and secondary diagnoses documented for the Encounter. Date/Time Primary/Secondary Diagnosis Name Provider Source Diagnosis September 10, 2021 PRIMARY Pain in SIVAN SANCHEZ 03:47 PM unspecified foot [facility] Plan of Treatment: Future Appointments (+ [...] 20 appointments. The data comes from all [place] treatment facilities. Appointment Date/Time Appointment Type Appointment Facili ty Name September 16, 2021 01:30 PM [facility] Oct 21, 2021 10:30 AM [facility] Oct 21, 2021 11:00 AM [facility] Oct 26, 2021 11:00 AM [facility] Dec 23, 2021 02:04 AM AMBULATORY - MEDICINE [facility] Dec 24, 2021 01:00 PM [facility] Dec 28, 2021 02:30 PM AM[facility]ULATORY - MEDICINE [facility] Dec 28, 2021 02:31 PM [facility]ORY - [facility] Jan 18, 2022 11:30 AM [facility] Lab Results: +/- 30 days of the encounter This section includes the Chemistry and Hematology Lab Results on record with AR for the patient. Radiology Reports and Pathology Reports are provided separately, in subsequent sections.Lab Results This section contains the Chemistry/Hematology Results that were resulted 30 days before or 30 daysafter the date of the Encounter. Date/Time Source Result Type Result - Unit Interpretation Reference Range Comment September 10, 2021 [facility] URINALYSIS W/REFLEX Specimen Ty pe: URINE 01:00 PM [facility] TO CULTURE No comment enter ed. Ordering Provid er: MARIO SANCHEZ Report Released Date/Time: September 10, 2021 12:10 PM Reporting Lab: [facility] [address] [facility] [address] Performing Lab: [facility] [address] [facility] [address] URINE COLOR Yellow YELLOW SPECIFIC GRAVITY 1.018 [...] NEG NEG September 10, 2021 12:15 [place] CRP(INFLAMMATORY) Specimen T ype: PLASMA [facility] Comment: Tests performed on Brito Heel Builder Machine (405) [id number] Ordering Provid er: MARIO SANCHEZ Report Released Date/Time: September 10, 2021 12:10 PM Reporting Lab: [place] [facility] [address] [facility] [address] Performing Lab: [place] [facility] [address] [facility] [address] CRP(INFLAMMATORY) 68.2 H 0-5.0 September 10, 2021 12:15 PM [place] URIC ACID Specimen Type: PLASMA [facility] Comment: Tests performed on Brito Loogares[employer]Com (405) SN:[id number] Ordering Provid er: MARIO SANCHEZ Report Released Date/Time: September 10, 2021 12:10 PM Reporting Lab: [place] [facility] [address] [facility] [address] Performing Lab: [place] [facility] [address] [facility] [address] URIC ACID 6.3 3.3-8.7 September 10, 2021 12:15 [place] LIVER PROFILE Specimen Typ e: PLASMA [facility] Comment: Tests performed on [employer] (405) SN:[id number] Ordering Provid er: MARIO SANCHEZ Report Released Date/Time: September 10, 2021 12:10 PM Reporting Lab: [place] [facility] [address] [facility] [address] Performing Lab: [place] [facility] [address] [facility] [address] PROTEIN, TOTAL 8.1 6.0-8.5 ALBUMIN 3.3 3.2-5.0 BILIRUBIN, TOTAL 0.6 0.2-1.2 ALKALINE PHOSPHATASE 118 40-150 ALT(SGPT) 14 7-52 AST(SGOT) 18 5-34 FIB-4 SCORE 0.87 <2.67 September 10, 2021 [place] P4 GLU,BUN,CREAT,LYTES,CA Speci men Type: PLASMA 12:15 PM [facility] Comment: Tests performed on [employer] (405) SN:[id number] Ordering Provid er: MARIO SANCHEZ Report Released Date/Time: September 10, 2021 12:10 PM Reporting Lab: [facility] [address] [facility] [address] Performing Lab: [facility] [address] [facility] [address] UREA NITROGEN 17 7-25 SODIUM 138 135-145 POTASSIUM 3.8 3.5-5.0 CHLORIDE 102 100-110 CARBON DIOXIDE 22 20-30 ANION GAP 14 4-16 GLUCOSE 130 H 65-100 CREATININE 1.25 0.5-1.5 CALCIUM 8.2 L 8.5-10.5 eGFR(CKD-EPI 2020) 60 >60 September 10, 2021 12:15 [facility] CBC PROFILE Specimen Typ e: BLOOD PM [facility] No comment enter ed. Ordering Provid er: MARIO SANCHEZ Report Released Date/Time: September 10, 2021 12:10 PM [facility] [address] [facility] [address] Performing Lab: [facility] [address] [facility] [address] WBC 15.5 H 4.5-11.0 RBC 4.84 4.23-5.66 [...] NRBC 0.00 0-0 September 10, 2021 11:30 [facility] COVID-19 AG SCREEN Specimen Type: NASAL CAVITY AM [facility] PANEL BINAX(405) Comment: [place] Performed By: Nicole Ramirez Ordering Provid er: RAJENDRA OLIVARES Report Released Date/Time: September 14, 2021 10:11 AM Reporting Lab: [facility] [address] [facility] [address] Performing Lab: [facility] [address] [facility] [address] COVID-19 AG SCRN(wrj BINAX) NEGATIVE NE G Vital Signs: All taken on the encounter date This section contains inpatient and outpatient Vital Signs collected on the date of the Encounter. Date/Time Temperature Pulse Blood Respiratory SP02 Pain Height Weight Eugenio dy Source Pressure Rate Mass Index September 10, 98.7 F 96 141/86 22 /min 96 % 10 WHITE 2021 11:39 /min mm[Hg] [facility] Social History: Smoking Status (Most current) and Tobacco Use (All prior to encounter date) This section includes the most current, and the historical, smoking and tobacco-related health factors from the AR facility where the Encounter took place.Current Smoking Status This section includes the most current smoking, or tobacco-related health factor, from the AR facility where the Encounter took place. Date/Time Current Smoking Status Comment Facility September 10, 2021 11:25 AM QUIT TOBACCO USE > 7 YEARS AGO [facility] Tobacco Use History This section includes a history of the smoking, or tobacco- related health factors, that were collected on or before the date of the Encounter. The data comes from the AR facility where the Encounter took place. Date/Time Smoking Status/Tobacco Use Comment [facility] Dec 19, 2017 11:42 AM QUIT TOBACCO USE > 7 YEARS [place] A[place] Former user of tobacco products quit 27 yrs ago [facility] Oct 26, 2016 09:17 AM QUIT TOBACCO USE > 7 YEARS [place] A[place] [facility] Jan 07, 2016 09:58 AM QUIT TOBACCO USE > 7 YEARS [place] AGO [facility] September 09, 2008 10:31 AM QUIT TOBACCO USE > 7 YEARS [place] A[place] 8 yrs. [facility] August 29, 2007 08:57 AM QUIT TOBACCO USE 1-7 YEARS [place] A[place] [facility] Feb 22, 2007 11:44 AM QUIT TOBACCO USE IN PAST [place] YEAR [facility] August 28, 2006 12:57 PM QUIT TOBACCO USE 1-7 YEARS [place] AGO 5 yrs. ago [facility] August 22, 2005 10:55 AM QUIT TOBACCO USE 1-7 YEARS [place] AGO quit 4 yr ago [facility] August 27, 2004 01:30 PM HISTORY OF SMOKING [place] 12/25 [facility] August 27, 2004 01:30 PM QUIT TOBACCO USE IN PAST [place] YEAR 2 years [facility] Dec 19, 2003 01:13 PM QUIT TOBACCO USE IN PAST [place] YEAR [facility] September 05, 2003 02:45 PM H[place]ORY OF SMOKING [place] quit 12/25 [facility] September 05, 2003 02:45 PM QUIT TOBACCO USE IN PAST [place] YEAR quit 12/26 [facility] Mar 27, 2002 11:07 AM CURRENT SMOKER [place] Pt. smokes 1 ppd. [facility] Mar 14, 2001 03:27 PM CURRENT SMOKER [place] [facility] Advance Directives: All historical and current Section Date Range: From patient's date of to the date document was created. This section includes ALL of a patient's completed or amended [place] Advance and Rescinded Directives. The entries below indicate that a directive exists for the patient, but an actual copy is not included with this document. The data comes from all AR facilities. Date Advance Directives Provider Source Apr 06, 2010 ADVANCE DIRECTIVE SVETLANA FRANK [place] [facility] Radiology Reports: +/- 30 days [...] the Encounter. The data comes from all [place] treatment facilities. Date/Time Radiology Report Provider Source September 10, 2021 12:11 PM FOOT-3 VIEWS (ROUTINE): LUCASORION [facility] [place] [facility] RUPERT SERNA [id number] -1945 M [facility] Exm Date: SEPTEMBER 10, 2021@12:11 Req Phys: MARIO SANCHEZ Pat Loc: [facility] E D DAYS M1RD (Req'g Loc) Img Loc: XRAY (OOS) Service: Unknown (Case [id number] COMPLETE) FOOT-3 VIEWS (ROUTINE) (RAD Detailed) CPT:20080 Proc Modifiers : LEFT Reason for Study: bilat foot pain, hx of gout Clinical History: Report Status: Verified Date Reported: SEPTEMBER 10, 2021 Date Verified: SEPTEMBER 10, 2021 [employer] E-Sig:/ES/ORION ZAVALA Report: Bilateral ankles and bilateral [...] REQUIRED Primary Interpreting Staff: Staff MARY CADENA ([employer]) / September 10, 2021 12:11 PM ANKLE (ROUTINE): [facility] SERNA [id number] -1945 M [facility] Exm Date: SEPTEMBER 10, 2021@12:11 Req Phys: MARIO SANCHEZ Pat Loc: [facility]J E D DAYS (Req'g Loc) Img Loc: XRAY (OOS) Service: Unknown (Case [id number] COMPLETE) ANKLE (ROUTINE) (RAD Detaile d) CPT:13794 Proc Modifiers : RIGHT Reason for Study: bilat foot pain, hx of gout Clinical History: Report Status: Verified Date Reported: SEPTEMBER 10, 2021 Date Verified: SEPTEMBER 10, 2021 [employer] E-Sig:/ES/ORION ZAVALA Report: Bilateral ankles and bilateral [...] REQUIRED Primary Interpreting Staff: Staff MARY CADENA ([employer]) / September 10, 2021 12:11 PM ANKLE (ROUTINE): ORION ZAVALA [facility] RUPERT SERNA [id number] -1945 M [facility] Ex Date: SEPTEMBER 10, 2021@12:11 Req Phys: MARIO SANCHEZ Pat Loc: [facility] E D DAYS M1RD (Req'g Loc) Img Loc: XRAY (OOS) Service: Unknown (Case [id number] COMPLETE) ANKLE (ROUTINE) (RAD Detaile d) CPT:39376 Proc Modifiers : LEFT Reason for Study: bilat foot pain, hx of gout Clinical History: Report Status: Verified Date Reported: SEPTEMBER 10, 2021 Date Verified: SEPTEMBER 10, 2021 [employer] E-Sig:/ES/ORION ZAVALA Report: Bilateral ankles and bilateral [...] REQUIRED Primary Interpreting Staff: Staff MARY CADENA ([employer]) /September 10, 2021 12:11 PM FOOT-3 VIEWS (ROUTINE): ORION ZAVALA [facility] RUPERT SERNA [id number] -1945 [facility] Exm Date: SEPTEMBER 10, 2021@12:11 Req Phys: MARIO SANCHEZ Pat Loc: [facility] E D DAYS M1RD (Req'g Loc) Img Loc: XRAY (OOS) Service: Unknown (Case [id number] COMPLETE) FOOT-3 VIEWS (ROUTINE) (RAD Detailed) CPT:19362 Proc Modifiers : RIGHT Reason for Study: bilat foot pain, hx of gout Clinical History: Report Status: Verified Date Reported: SEPTEMBER 10, 2021 Date Verified: SEPTEMBER 10, 2021 [employer] E-Sig:/ES/ORION ZAVALA Report: Bilateral ankles and bilateral [...] REQUIRED Primary Interpreting Staff: ORION ZAVALA Staff ([employer]) / Encounter Notes: All associated encounter notes This section contains the clinical notes associated to the Encounter. Date/Time Encounter Note(s) Provider Source September 10, 2021 03:48 PM EMERGENCY DEPT NOTE: GREGORY WYLIE LOCAL TITLE: ED ICT NOTE/EMERGENCY DEPARTMENT N SONIA Jones [facility] STANDARD TITLE: EMERGENCY DEPT NOTE DATE OF NOTE: SEPTEMBER 10, 2021@15:48 ENTRY DATE: SEPTEMBER 10, 2021@15:48:19 AUTHOR: GREGORY WYLIE EXP COSIGNER: URGENCY: STATUS: COMPLETED * Falls Patient greater than 70 years old? Yes [facility] declines falls clinic evaluation Pt reported to ED with c/o foot pain-see Triage Note for full assessment Pt evaluated by EVERETTE Sanchez imaging obtained per EVERETTE orders Pt consulted by Rheumatology patient given compression stockings and educated in use discharge medications and instructions reviewed with patient Patient discharged to home /almaz/ GREGORY WYLIE Intermediate daycare teacher Signed: 09/10/2021 15:51 September 10, 2021 03:10 PM EMERGENCY DEPT DISCHARGE NOTE: Mayte SANCHEZ LOCAL TITLE: Emergency Dept Discharge Instructi [facility] STANDARD TITLE: EMERGENCY DEPT DISCHARGE NOTE DATE OF NOTE: SEPTEMBER 10, 2021@15:10 ENTRY DATE: SEPTEMBER 10, 2021@15:10:18 AUTHOR: MARIO SANCHEZ EXP COSIGNER: URGENCY: STATUS: COMPLETED DISCHARGE INSTRUCTIONS FOR: MR. RUPERT SERNA [address], [place] [address] SEPTEMBER 10, 2021 YOUR DIAGNOSIS: Leg pain TREATMENT YOU RECEIVED IN THE EMERGENCY DEPARTME NT: -Examination, labs, x-rays -Rheumatology consult TREATMENT INSTRUCTIONS UPON DISCHARGE FROM THE E MERGENCY DEPARTMENT, INCLUDING INSTRUCTIONS FOR MEDICATIONS: -Please take 5 days of celecoxib as prescribed w ith meals -Please ice the feet as needed for pain -Compression stockings ACTIVE MEDICATIONS: Active Outpatient Medications (excluding Supplie s): Active Outpatient Medications Status 1) ACETAMINOPHEN 500MG TAB TAKE ONE TABLET BY MO UTH ACTIVE EVERY SIX HOURS NEEDED FOR PAIN 2) ALLOPURINOL 100MG TAB TAKE TWO TABLETS BY MILTON TH EVERY ACTIVE DAY FOR GOUT 3) AMLODIPINE BESYLATE 10MG TAB TAKE ONE TABLET BY MOUTH ACTIVE (S) EVERY DAY FOR BLOOD PRESSURE/HEART, DO NOT [...] SA TAB TAKE ONE TABLET BY ACTIVE (S) MOUTH EVERY DAY TO PREVENT ANGINA 12) METOPROLOL SUCCINATE 200MG SA TAB TAKE ONE T ABLET BY ACTIVE MOUTH EVERY DAY FOR BLOOD PRESSURE/HEART 13) OMEPRAZOLE 20MG EC CAP TAKE ONE CAPSULE BY M OUTH ACTIVE (S) TWICE A DAY FOR STOMACH ACID (TAKE HALF-HOUR BE FORE A MEAL(S) 14) POTASSIUM CHLORIDE 10MEQ SA TAB TAKE TWO TAB LETS BY ACTIVE MOUTH EVERY DAY TO SUPPLEMENT POTASSIUM Pending Outpatient Medications Status 1) CELECOXIB 100MG CAP TAKE ONE CAPSULE BY MOUTH TWICE A PENDING DAY FOR ARTHRITIS Active Non-VA Medications Status 1) Non-VA CAPSAICIN 0.1% CREAM SMALL AMOUNT TOPI SHERWIN ACTIVE TWICE DAILY NEEDED 16 Total Medications INSTRUCTIONS FOR FOLLOW UP: -Please follow-up with your PCP as needed -If you develop any new or worsening symptoms wh ich are concerning to you, please call your PCP or return to the ER. A copy of these instructions was given to the pa tient and/or caregiver. The instructions were reviewed w ith the patient and/or caregiver. The patient and/or caregiver showed understanding of the instructio ns before discharge from the Emergency Department. TREATING PHYSICIAN: Damian Sanchez PA-C SCHEDULED FUTURE APPOINTMENTS: Future Appointments - Sep@10:30 [facility] Sep@11:00 NEW COVID VACCINE MOD Oct@11:00 DARCY JEROME MD Jun@09:30 [facility] Jun@14:30 GENNA DE LA CRUZ 2 PHONE During normal business hours Monday-Monday 8-4 P M: If you have any problems, your contact center assistant or a doctor can be reached by calling the telephone advice dipika goldman at: (P) [phone], ext. [phone] Toll-free (P) [phone] ext. [phone] /es/ Damian Sanchez PA-C Signed: 09/10/2021 15:12 September 10, 2021 11:52 AM EMERGENCY DEPT NOTE: MARIO SANCHEZ [facility] LOCAL TITLE: ED MD Note/Emergency Department Ph ysician Note [facility] STANDARD TITLE: EMERGENCY DEPT NOTE DATE OF NOTE: SEPTEMBER 10, 2021@11:52 ENTRY DATE: SEPTEMBER 10, 2021@11:52:13 AUTHOR: MARIO SANCHEZ EXP COSIGNER: URGENCY: STATUS: COMPLETED ED MD Note/Emergency Department Physician Yessi lagos Has ADDENDA CHIEF COMPLAINT: Bilateral foot pain HISTORY and PHYSICAL EXAMINATION: HPI: 75-year-old male with a history of atrial f ibrillation on apixaban and metoprolol, GERD, prior CVA, presents to the ED reporting bilateral foot pain. Patient reports a years long history of po lyarthralgias, mostly in the bilateral ankles. He does have 2 rheumatology no deirdre in the past and they suspected either seronegative rheumatoid arthritis versus crystal arthropathy, though he was never crystal proven. Patient repo rts increase in ankle pain flareups over the past few m onths. His PCP noted elevated uric acid and CRP and ESR levels and started him on colchicine and all opurinol. This seemed to help his symptoms initially, rosas sandy 4 days ago patient developed another flareup of bilateral ankle pain which makes it difficult fo r him to walk. Patient denies any trauma or physical injury. Patient d enies any constitutional symptoms such as fevers, shaking chills, malaise, nausea, vomi ting, diarrhea. Patient is still taking his allopurinol and colchicine as p rescribed. No other acute complaints at this time. ROS: [X] Other than pertinent positives and negatives noted above and in HPI, all other systems on complete review are negative. PMH: I have reviewed the below PMH Code Description M10.9 Gout ([facility] 85511230) R91.1 Solitary nodule of lung ([facility] 164371359) Z79.01 Long-term current use of anticoagulant (S CT 232245239) I48.91 Atrial fibrillation ([facility] 74427411) I63.9 Cerebral infarction ([facility] 593367980) V65.9 Health Maint (ICD-9-CM V65.9) 784.0 Headaches (ICD-9-CM 784.0) E66.01 Adiposity (SCT 563073389) 530.81 Gastroesophageal Reflux Disorder (ICD-9-C M 530.81) E78.4 Hyperlipidemia ([facility] 43634012) 311. Depression (ICD-9-CM 311.) Meds: Active Outpatient Medications (excluding Supplie s): Active Outpatient Medications Status 1) ACETAMINOPHEN 500MG TAB TAKE ONE TABLET BY MO UTH ACTIVE EVERY SIX HOURS NEEDED FOR PAIN 2) ALLOPURINOL 100MG TAB TAKE TWO TABLETS BY MILTON TH EVERY ACTIVE DAY FOR GOUT 3) AMLODIPINE BESYLATE 10MG TAB TAKE ONE TABLET BY MOUTH ACTIVE (S) EVERY DAY FOR BLOOD PRESSURE/HEART, DO NOT [...] SA TAB TAKE ONE TABLET BY ACTIVE (S) MOUTH EVERY DAY TO PREVENT ANGINA 12) METOPROLOL SUCCINATE 200MG SA TAB TAKE ONE T ABLET BY ACTIVE MOUTH EVERY DAY FOR BLOOD PRESSURE/HEART 13) OMEPRAZOLE 20MG EC CAP TAKE ONE CAPSULE BY M OUTH ACTIVE (S) TWICE A DAY FOR STOMACH ACID (TAKE HALF-HOUR BE FORE A MEAL(S) 14) POTASSIUM CHLORIDE 10MEQ SA TAB TAKE TWO TAB LETS BY ACTIVE MOUTH EVERY DAY TO SUPPLEMENT POTASSIUM Active Non-VA Medications Status 1) Non-VA CAPSAICIN 0.1% CREAM SMALL AMOUNT TOPI SHERWIN ACTIVE TWICE DAILY NEEDED 15 Total Medications SH: As per nursing triage note Physical Exam: BP: 141/86 (09/10/2021 11:39) Pulse: 96 (09/10/2021 11:39) Temp: 98.7 F [37.1 C] (09/10/2021 11:39) Resp: 22 (09/10/2021 11:39) O2 Sat: 09/10/21 @ 1139 PULSE OXIMETRY: 96 General: No acute distress, well appearing, alert and oriented ? 3 HEENT: Pupils are equal and round, extraocular motions intact, sclerae anicteric Lungs: No audible wheeze or stridor, normal work of breathing Heart: Regular rate and rhythm, skin warm and we ll perfused Abdomen: Soft, non-tender, no pulsatile abdomina l masses palpated Extremities: Trace to 1+ bilateral lower extremi ty edema. Bilateral feet are tender especially across the dorsal metatarsal a nd medial ankle regions. No redness or warmth. Normal distal sensation capil paulette refill. Normal dorsalis pedis pulse noted. Neurologic: Betzy Coma Scale 15, extremities n onfocal DIAGNOSTIC INFORMATION: Labs: APPEARANCE: CLEAR UR COLOR: Yellow SPECIFIC GRAVITY: 1.018 UROBILINOGEN: <2.0 UR BLOOD: NEG UR BILIRUBIN: NEG UR KETONES: NEG UR GLUCOSE: NEG UR PROTEIN: 100 UR PH: 5.0 RBC/HPF: 1 HYALINE/CASTS/LPF: 18 H GRANULAR/CASTS/LPF: 2 SPERM: RARE NITRITE, URINE: NEG WBC SCREEN: NEG WBC: 15.5 H RBC: 4.84 HGB: 11.0 L HCT: 37.6 L MCV: 77.7 L MCH: 22.7 L MCHC: 29.3 L RDW: 18.6 H PLT: 411 H MPV: 9.4 ALTERNATE LYMPHS: 3.7 L SAMY MONO %: 6.8 SAMY GRAN %: 88.0 H SAMY BASO %: 0.4 SAMY EOS %: 0.1 L IMMATURE GRANULOCYTES: 1.0 H NRBC: 0.0 ABS I.2 H RDW-SD: 51.5 H ABSOLUTE BASO: 0.1 ABSOLUTE EOS: 0.0 L ABSOLUTE LYMPH: 0.6 L ABSOLUTE MONO: 1.1 ABSOLUTE NEUT: 13.6 H ABSOLUTE NRBC: 0.00 GLUCOSE: 130 H UREA NITROGEN: 17 CREATININE: 1.25 SODIUM: 138 POTASSIUM: 3.8 CHLORIDE: 102 CO2: 22 URIC ACID: 6.3 PROTEIN,TOTAL: 8.1 ALBUMIN: 3.3 BILIRUBIN,TOTAL: 0.6 ANION GAP: 14 ASTRA CA: 8.2 L ALKALINE PHOSPHATASE (596452): 118 ALT (032991): 14 AST (952368): 18 CRP: 68.2 H FIB4 SCORE: 0.87 eGFR CKD-EPI 2020: 60 Imaging Impression (14 Days) Date Procedure CPT Status Case # 09/10/2021 FOOT-3 VIEWS (ROUTINE) [id number] Verified 631 1. No acute fracture or dislocation. 2. [...] aspect of the left first MTP region. IMPRESSION: Multiple episodes of bilateral foot pain. Unclea r rheumatologic history, seronegative RA versus gout were both me ntioned in past rheum notes, but never crystal confirmed. Patient r ecently started on allopurinol and colchicine by PCP which initially seemed to help however 4 days ag o patient developed another flare. Seen in the ED by rheumatology who was unable to get a sample to test from either ankle. They are not convinced this is gou t or seronegative RA at this time. They thought maybe this could be related t o lower extremity edema, or even possibly peripheral neuropathy. They stated we could try 5 days of celecoxib, compression stockings, icing, with PC P follow-up. Patient is agreeable to this plan. MANAGEMENT AND CLINICAL COURSE: -Vitals obtained -Patient seen and examined by me -Workup as above; results reviewed -Rheumatology consult -Rx: Celecoxib x5 days, compression stockings, i cing -Discharge PERSONAL PROTECTIVE EQUIPMENT (PPE): Patient was in mask on arrival, MD/EVERETTE/FOOD HANDLER used PPE during every encounter , N95 M ask, Gloves, Face Shield PATIENT INSTRUCTIONS: see the Emergency Departme nt Discharge Instructions Note *This note was dictated using dragon dictation. It has been proofread, but please excuse any missed errors.* /chip Sanchez PA-C Signed: 09/10/2021 15:17 Receipt Acknowledged By: 09/10/2021 15:29 /almaz/ RAJENDRA OLIVARES Physician * AWAITING SIGNATURE * BRENDA SANCHEZ 09/10/2021 ADDENDUM STATUS: COMPLETED Patient seen and discussed and agree with the ab ove. Patient will follow up accordingly with his providers. /almaz/ RAJENDRA OLIVARES Physician Signed: 09/10/2021 15:29 September 10, 2021 11:26 AM EMERGENCY DEPT TRIAGE NOTE: LUCRECIA DIAZ [facility] TITLE: EMERGENCY DEPT TRIAGE NOTE [facility] STANDARD TITLE: EMERGENCY DEPT TRIAGE NOTE DATE OF NOTE: SEPTEMBER 10, 2021@11:26 ENTRY DATE: SEPTEMBER 10, 2021@11:26:37 AUTHOR: LUCRECIA DIAZ EXP COSIGNER: URGENCY: STATUS: COMPLETED Emergency Department/Urgent Care Center Triage Patient age: 75 Sex: MALE On arrival patient was: AMBULATORY Location Patient came from: Home Patient phone number: [phone] Preferred Name: Rupert Pronouns: He/Him Have you traveled recently No Allergies: Patient has answered NKA Subjective/Chief Complaint: Foot Pain Objective: States bilateral foot pain, states this is the 4th episode of foot pain in the last few years. Swelling to his feet, states his left is worse, pain 10/10. Difficult to stand of walk d ue to pain, 4 days of pain and swelling this episode The patient is a fall risk. Intervention: Call light Vital Signs * Pain: 01/31 Emergency Severity Index (VINCENT) level Level 4 Current Medications: Active Outpatient Medications (excluding Supplie s): Active Outpatient Medications Status 1) ACETAMINOPHEN 500MG TAB TAKE ONE TABLET BY MO UTH ACTIVE EVERY SIX HOURS NEEDED FOR PAIN 2) ALLOPURINOL 100MG TAB TAKE TWO TABLETS BY [place] TH EVERY ACTIVE DAY FOR GOUT 3) AMLODIPINE BESYLATE 10MG TAB TAKE ONE TABLET BY MOUTH ACTIVE (S) EVERY DAY FOR BLOOD PRESSURE/HEART, DO NOT [...] SA TAB TAKE ONE TABLET BY ACTIVE (S) MOUTH EVERY DAY TO PREVENT ANGINA 12) METOPROLOL SUCCINATE 200MG SA TAB TAKE ONE T ABLET BY ACTIVE MOUTH EVERY DAY FOR BLOOD PRESSURE/HEART 13) OMEPRAZOLE 20MG EC CAP TAKE ONE CAPSULE BY M OUTH ACTIVE (S) TWICE A DAY FOR STOMACH ACID (TAKE HALF-HOUR BE FORE A MEAL(S) 14) POTASSIUM CHLORIDE 10MEQ SA TAB TAKE TWO TAB LETS BY ACTIVE MOUTH EVERY DAY TO SUPPLEMENT POTASSIUM Active Non-VA Medications Status 1) Non-VA CAPSAICIN 0.1% CREAM SMALL AMOUNT TOPI SHERWIN ACTIVE TWICE DAILY NEEDED 15 Total Medications Current Problems: Active problems - Computerized Problem List is t he source for the followin. Gout 2. Solitary nodule of lung 3. Long-term current use of anticoagulant 4. Atrial fibrillation 5. Cerebral infarction 6. Health Maint 7. Headaches * 8. Adiposity (SNOMED CT 997096881) 9. Gastroesophageal Reflux Disorder 10. Hyperlipidemia (SNOMED CT 89664841) 11. Depression * 12. Benign essential hypertension (SNOMED CT 120 1005) 13. Impotence 14. Abstinent alcoholic (SNOMED CT 738198923) Coronavirus Disease 2019 (COVID-19) Screen The patient was asked if in the last 14 days the y have had new onset of any COVID-19 symptoms. They report the following: Cough Comment: Intermittant Chronic Within the past 14 days, the patient reports no exposure to someone with a febrile/respiratory illness or someone with a kn own or suspected case of COVID-19 (within 6 feet for > 15 minutes). Result: Screen is negative. Patient is waiting on COVID-19 test results. Comment: Performed in Triage Suicide Screen: [place] Suicide Severity Rating Scale (C-SSRS) screener 1. [...] any time in the past month did niles patten intend to carry out this plan? Response not required due to responses to other questions. 7. In your lifetime, have you ever done anythin g, started to do anything, or prepared to do anything to end your life (for e xample, collected pills, obtained a gun, gave away valuables, went to e roof but didn't jump)? No 8. If YES, was this within the past 3 months? Response not required due to responses to other questions. Sepsis Screening *SUSPECTED INFECTION No How often did you have a drink containing alcoh ol in the past year? Perform AUDIT-C An alcohol screening test (AUDIT-C) was negativ e (score=3). 1. How often did you have a drink containing al cohol in the past year? Two to three times per week 2. How many drinks containing alcohol did you h ave on a typical day when you were drinking in the past year? One or two drinks 3. How often did you have six or more drinks on one occasion in the past year? Never Have you smoke or use tobacco products in the st 30 days? Patient reports quitting smoking/tobacco use mo re than 7 years ago. Type, amount, quite date: 25 years ago Drug use: No How much per day? Any recent injuries ? No Patient Disposition: Waiting Room Tele ICU contacted Sophia /almaz/ LUCRECIA ZHENG REGISTERED NURSE ALICIA Signed: 09/10/2021 11:39
--- OUTSIDE RECORDS SUMMARY | 2021-12-31 13:00 | XMS_ITS | Encounter Summary ---
:1945 Author Organization [facility] Address [address] [place] [id number] Support Name Relationship Address Phone CATHERINE SERNA Unavailable [address] [phone] [place] [address] COLEMAN, DAUGHTER Unavailable Unavailable Insurance Providers: All [...] MEDICARE MEDICARE PART Oct 22, PART A [id number] DAVIGN ON, PATIENT (WNR) (M) A 2011 UP35 1 RUPERT MEDICARE MEDICARE PART Oct 22, PART A [id number] [phone] WILIAMIGN ON, PATIENT (WNR) (M) A 2011 [id number] 00 RUPERT Selected Encounter This section includes the information [facility] record at [facility] for the [facility]counter. Date/Time Encounter Type Encounter Reason Provider Source Description September 10, 2021 OFFICE RHEUMATOLOGY/ART ICD-10-CM M10.9 BROOK CORBETTI S 03:39 PM CONSULTATION HRITIS Gout, ALESSIO J unspecified with Provider Comments: Gout (SCT [id number]) IHE Encounter Template Text not used by [facility] Assessments - Encounter Diagnoses This section includes the primary and secondary diagnoses documented for the Encounter. Date/Time Primary/Secondary Diagnosis Name Provider Source Diagnosis September 10, 2021 PRIMARY Gout, unspecified MARYANA CORBETT RI GURPREET 04:31 PM [facility] September 10, 2021 SECONDARY Pain in unspecified MARYANA CORBETT [place] 04:31 PM ankle and joints of [facility] unspecified foot September 10, 2021 SECONDARY Unspecified atrial MARYANA CORBETT 04:31 PM fibrillation OPHER J [facility] Plan of Treatment: Future Appointments (+ 6 months) and Future Tests (+/- 45 days) The Plan of Treatment section includes future care activities for the patient [facility] This section includes future appointments and future orders which are active, pending orscheduled.Future Appointments This section includes appointments that were scheduled to occur 6 months from the date of the Encounter, up to a maximum of 20 appointments. The data comes from all DC treatment facilities. Appointment Date/Time Appointment Type Appointment Facili ty Name September 16, 2021 01:30 PM AMBULATORY - MEDICINE [facility] Oct 21, 2021 10:30 AM AM[facility] - MEDICINE [facility] Oct 21, 2021 11:00 AM [facility]INE [facility] Oct 26, 2021 11:00 AM [facility] MEDICINE [facility] Dec 23, 2021 02:04 AM [facility] Dec 24, 2021 01:00 PM [facility]INE [facility] Dec 28, 2021 02:30 PM [facility] Dec 28, 2021 02:31 PM AMBULATORY - NONE [facility] Jan 18, 2022 11:30 AM AMBULATORY - MEDICINE [facility] Lab Results: +/- 30 days of the encounter This section includes the Chemistry and Hematology Lab Results on record with DC for the patient. Radiology Reports and Pathology Reports are provided separately, in subsequent sections.Lab Results This section contains the Chemistry/Hematology Results that were resulted 30 days before or 30 daysafter the date of the Encounter. Date/Time Source Result Type Result - Unit Interpretation Reference Range Comment September 10, 2021 [facility] URINALYSIS W/REFLEX Specimen Ty pe: URINE 01:00 PM [facility] TO CULTURE No comment enter ed. Ordering Provid er: MARIO SANCHEZ Report Released Date/Time: September 10, 2021 12:10 PM Reporting Lab: [facility] [address] [facility] [address] Performing Lab: [facility] [address] [facility] [address] URINE COLOR Yellow YELLOW SPECIFIC GRAVITY 1.018 [...] PM [facility] Comment: Tests performed on Brito [employer] Analysis (405) SN:[id number] Ordering Provid er: MARIO SANCHEZ Report Released Date/Time: September 10, 2021 12:10 PM Reporting Lab: [place] [facility] [address] [facility] [address] Performing Lab: [place] [facility] [address] [facility] [address] CRP(INFLAMMATORY) 68.2 H 0-5.0 September 10, 2021 12:15 PM [place] URIC ACID Specimen Type: PLASMA [facility] Comment: Tests performed on Amvona (405) [id number] Ordering Provid er: MARIO SANCHEZ Report Released Date/Time: September 10, 2021 12:10 PM Reporting Lab: [place] [facility] [address] [facility] [address] Performing Lab: [place] [facility] [address] [facility] [address] URIC ACID 6.3 3.3-8.7 September 10, 2021 [place] P4 GLU,BUN,CREAT,LYTES,CA Speci men Type: PLASMA 12:15 PM [facility] Comment: Tests performed on Amvona (405) SN:[id number] Ordering Provid er: MARIO SANCHEZ Report Released Date/Time: September 10, 2021 12:10 PM Reporting Lab: [place] [facility] [address] [facility] [address] Performing Lab: [place] [facility] [address] [facility] [address] UREA NITROGEN 17 7-25 SODIUM 138 135-145 POTASSIUM 3.8 3.5-5.0 CHLORIDE 102 100-110 CARBON DIOXIDE 22 20-30 ANION GAP 14 4-16 GLUCOSE 130 H 65-100 CREATININE 1.25 0.5-1.5 CALCIUM 8.2 L 8.5-10.5 eGFR(CKD-EPI 2020) 60 >60 September 10, 2021 12:15 [facility] LIVER PROFILE Specimen Typ e: PLASMA PM [facility] Comment: Tests performed on Amvona (405) SN:[id number] Ordering Provid er: MARIO SANCHEZ Report Released Date/Time: September 10, 2021 12:10 PM Reporting Lab: [facility] [address] [facility] [address] Performing Lab: [facility] [address] [facility] [address] PROTEIN, TOTAL 8.1 6.0-8.5 ALBUMIN 3.3 3.2-5.0 BILIRUBIN, TOTAL 0.6 0.2-1.2 ALKALINE PHOSPHATASE 118 40-150 ALT(SGPT) 14 7-52 AST(SGOT) 18 5-34 FIB-4 SCORE 0.87 <2.67 September 10, 2021 12:15 [facility] CBC PROFILE Specimen Typ e: BLOOD PM [facility] No comment enter ed. Ordering Provid er: MARIO SANCHEZ Report Released Date/Time: September 10, 2021 12:10 PM Reporting Lab: [facility] [address] [facility] [address] [facility]forming [facility]: [facility] [address] [facility] [address] WBC 15.5 H 4.5-11.0 RBC 4.84 4.23-5.66 [...] NRBC 0.00 0-0 September 10, 2021 11:30 [facility] COVID-19 AG SCREEN Specimen Type: NASAL CAVITY AM [facility] PANEL BINAX(405) Comment: Testi ng Performed By: Nicole Ramirez Ordering Provid er: RAJENDRA OLIVARES Report Released Date/Time: September 14, 2021 10:11 AM Reporting Lab: [facility] [address] [facility] [address] Performing Lab: [facility] [address] [facility] [address] COVID-19 AG SCRN(wrj BINAX) NEGATIVE NE G Vital Signs: All taken on the encounter date This section contains inpatient and outpatient Vital Signs collected on the date of the Encounter. Date/Time Temperature Pulse Blood Respiratory SP02 Pain Height Weight Eugenio dy Source Pressure Rate Mass Index September 10, 98.7 F 96 141/86 22 /min 96 % 10 WHITE 2021 11:39 /min mm[Hg] [facility] Social History: Smoking Status (Most current) and Tobacco Use (All prior to encounter date) This section includes the most current, and the historical, smoking and tobacco-related health factors from the DC facility where the Encounter took place.Current Smoking Status This section includes the most current smoking, or tobacco-related health factor, from the DC facility where the Encounter took place. Date/Time Current Smoking Status Comment Facility September 10, 2021 11:25 AM QUIT TOBACCO USE > 7 YEARS AGO [facility] Tobacco Use History This section includes a history of the smoking, or tobacco- related health factors, that were collected on or before the date of the Encounter. The data comes from the DC facility where the Encounter took place. Date/Time Smoking Status/Tobacco Use Comment [facility] Dec 19, 2017 11:42 AM QUIT TOBACCO USE > 7 YEARS [place] AGO Former user of tobacco products quit 27 yrs ago [facility] Oct 26, 2016 09:17 AM QUIT TOBACCO USE > 7 [place]ARS [place] [facility] Jan 07, 2016 09:58 AM QUIT TOBACCO USE > 7 [place] [facility] September 09, 2008 10:31 AM QUIT TOBACCO USE > 7 YEARS [place] A[place] 8 yrs. [facility] August 29, 2007 08:57 AM QUIT TOBACCO USE 1-7 YEARS [place] [facility] Feb 22, 2007 11:44 AM QUIT TOBACCO USE IN PAST [place] YE[place] [facility] August 28, 2006 12:57 PM QUIT TOBACCO USE 1-7 YEARS [place] A[place] 5 yrs. ago [facility] August 22, 2005 10:55 AM QUIT TOBACCO USE 1-7 YEARS [place] A[place] quit 4 yr ago [facility] August 27, 2004 01:30 PM HISTORY OF SMOKING [place] 12/25 [facility] August 27, 2004 01:30 PM QUIT TOBACCO USE IN PAST Deana MYERST YEAR 2 years [facility] Dec 19, 2003 01:13 PM QUIT TOBACCO USE IN PAST Deana MYERST YEAR [facility] September 05, 2003 02:45 PM HISTORY OF SMOKING [place] quit 12/25 [facility] September 05, 2003 02:45 PM QUIT TOBACCO USE IN PAST Deana MYERST YEAR quit 12/26 [facility] Mar 27, 2002 11:07 AM CURRENT SMOKER DM MYERST Pt. smokes 1 ppd. [facility] Mar 14, 2001 03:27 PM CURRENT SMOKER DM MYERST [facility] Advance Directives: All historical and current Section Date Range: From patient's date of to the date document was created. This section includes ALL of a patient's completed or amended DC Advance and Rescinded Directives. The entries below indicate that a directive exists for the patient, but an actual copy is not included with this document. The data comes from all DC facilities. Date Advance Directives Provider Source Apr 06, 2010 ADVANCE DIRECTIVE SVETLANA FRANK J [place] [facility] Radiology Reports: +/- 30 days of the [...] the Encounter. The data comes from all DC treatment facilities. Date/Time Radiology Report Provider Source September 10, 2021 12:11 PM FOOT-3 VIEWS (ROUTINE): ORION Z[facility]AL [facility] RUPERT SERNA [id number] -1945 M [facility] Exm Date: SEPTEMBER 10, 2021@12:11 Req Phys: LAURAMARIO SINGHAH Pat Loc: [facility] E D DAYS M1RD (Req'g Loc) Img Loc: XRAY (OOS) Service: Unknown (Case [id number] COMPLETE) FOOT-3 VIEWS (ROUTINE) (RAD Detailed) CPT:70909 Proc Modifiers : LEFT Reason for Study: bilat foot pain, hx of gout Clinical History: Report Status: Verified Date Reported: SEPTEMBER 10, 2021 Date Verified: SEPTEMBER 10, 2021 Professor Of Forestry E-Sig:/ES/ORION ZAVALA Report: Bilateral ankles and bilateral [...] REQUIRED Primary Interpreting Staff: Staff MARY CADENA (Professor Of Forestry) /September 10, 2021 12:11 PM ANKLE (ROUTINE): ORION ZAVLAA [facility] RUPERT SERNA SHIVANI [id number] -1945 M [facility] Exm Date: SEPTEMBER 10, 2021@12:11 Req Phys: MARIO SANCHEZ Pat Loc: [facility] E D DAYS M1 (Req'g Loc) Img Loc: XRAY (OOS) Service: Unknown (Case [id number] COMPLETE) ANKLE (ROUTINE) (RAD Merlee d) CPT:24491 Proc Modifiers : RIGHT Reason for Study: bilat foot pain, hx of gout Clinical History: Report Status: Verified Date Reported: SEPTEMBER 10, 2021 Date Verified: SEPTEMBER 10, 2021 Professor Of Forestry E-Sig:/ES/ORION ZAVALA Report: Bilateral ankles and bilateral [...] REQUIRED Primary Interpreting Staff: Staff MARY CADENA (Professor Of Forestry) / September 10, 2021 12:11 PM ANKLE (ROUTINE): ORION ZAVALA [facility] [place] SERNA SHIVANI [id number] -1945 M [facility] Ex Date: SEPTEMBER 10, 2021@12:11 Req Phys: MARIO SANCHEZ Pat Loc: [facility] E D DAYS M1RD (Req'g Loc) Img Loc: XRAY (OOS) Service: Unknown (Case [id number] COMPLETE) ANKLE (ROUTINE) (RAD Detaile d) CPT:32974 Proc Modifiers : LEFT Reason for Study: bilat foot pain, hx of gout Clinical History: Report Status: Verified Date Reported: SEPTEMBER 10, 2021 Date Verified: SEPTEMBER 10, 2021 Professor Of Forestry E-Sig:/ES/ORION ZAVALA Report: Bilateral ankles and bilateral [...] REQUIRED Primary Interpreting Staff: ORION ZAVALA, Staff (Professor Of Forestry) / September 10, 2021 12:11 PM FOOT-3 VIEWS (ROUTINE): ORION ZAVALA [facility] RUPERT SERNA [id number] -1945 M [facility] Exm Date: SEPTEMBER 10, 2021@12:11 Req Phys: MARIO SANCHEZ Pat Loc: [facility] E D DAYS M1RD (Req'g Loc) Img Loc: XRAY (OOS) Service: Unknown (Case [id number] COMPLETE) FOOT-3 VIEWS (ROUTINE) (RAD Detailed) CPT:04462 Proc Modifiers : RIGHT Reason for Study: bilat foot pain, hx of gout Clinical History: Report Status: Verified Date Reported: SEPTEMBER 10, 2021 Date Verified: SEPTEMBER 10, 2021 Professor Of Forestry E-Sig:/ES/ORION ZAVALA Report: Bilateral ankles and bilateral [...] REQUIRED Primary Interpreting Staff: ORION ZAVALA Staff (Professor Of Forestry) / Encounter Notes: All associated encounter notes This section contains the clinical notes associated to the Encounter. Date/Time Encounter Note(s) Provider Source September 10, 2021 03:39 RHEUMATOLOGY CONSULT: YAMILKA CORBETT T LOCAL TITLE: CONSULT: Rheumatology R J [facility] STANDARD TITLE: RHEUMATOLOGY CONSULT DATE OF NOTE: SEPTEMBER 10, 2021@15:39 ENTRY DATE: SEPTEMBER 10, 2021@15:40:28 AUTHOR: GENET CORBETT EXP COSIGNER: BE YANEZ URGENCY: STATUS: COMPLETED CONSULT: Rheumatology Has ADDENDA RHEUMATOLOGY OUTPATIENT CONSULT NOTE Outpatient Rheumatology Consult Primary Care Provider: BRENDA SANCHEZ MD Consult Attending: Dr. Yanez Date: August ID/Reason for Consult: Polyarthralgia, in emerg ency department HPI: 75M with PMH significan t for afib on Eliquis, HTN, HLD, GERD, and prior CVA who presented to the ED today with bilateral arielle t/ankle pain. Patient was evaluated by rheumatology here at [facility] on 09/07/16 for polyarthralgias. Workup at the time was notable for negative RF and CCP antibodies, although he did have signifi cantly elevated CRP and ESR at 104 and 72, respectively. Bilateral foot/ankle X Rs showed no erosions. Symptoms at the time were attributed to SNRA vs polyarticular go ut and it appears that he was started on MTX and HCQ. Unfortunately, p atient was lost to follow up and it is unclear when exactly he stopped these medication s but he has not been on them for quite some time. Of note, he complained of b ilateral ankle pain at his initial visit on 09/07/16 and received bilateral ankle steroid injections. It does not appear that diagnostic arthrocentesis w as ever performed. He recently established care with a new PCP here at the DC earlier in April 2021. Telephone note from 05/20/21 indica deirdre that he had been taking colchicine 0.6 mg daily for a couple years but wa s not on urate-lowering therapy at the time. It appears that he had a gout flare in his left ankle in late May/early June and was treated with a pred nisone taper (40 mg x5 days, then 20 mg x2 days, then 10 mg x2 days, then 5 m g x2 days). His uric acid was 8.6 on 07/07/21 so his PCP init iated him on urate-lowering therapy with allopurinol 100 mg daily. However, it does not appear that he started this until late June/early July. Uric acid 7.9 on 08/10/21 so allopurinol was increased to 200 mg daily on 07/24 05/15. Today, patient presented to the ED after again developing bilateral ankle pain approximately 4 days ago. Th inking that this was another gout flare, he took 20 mg of prednisone before coming to the ED. Report s that his pain is certainly better now than before he took the prednisone. Labs today: CRP 68.2, uric a alfonso 6.3, CMP unremarkable, CBC notable for WBC 15.5 and plts 411. XRs bilateral feet/ankles today: 1. No acute f racture or dislocation. 2. Diffuse osseous demineralization bilaterally [...] aspect of the left first MTP region. ROS: -fevers, -chills, -weight loss, -fatigue -dry eyes, -dry mouth, -mouth ulcers -chest pain, -palpitations -SOB, -JACOBS, -cough -ABD pain, -nausea, -vomiting, -diarrhea -hematuria, -dysuria -rash +arthritis, +arthralgia Social Smoked 1 ppd for about 45 years, quit over 20 ye ars ago EtOH: 1-2 drinks per day Family Mother apparently had RA Medications: Active Outpatient Medications (excluding Supplie s): [...] MOUTH EVERY DAY TO LOWER CHOLESTEROL 7) CELECOXIB 100MG CAP TAKE ONE CAPSULE BY MOUTH TWICE A ACTIVE DAY FOR ARTHRITIS 8) COLCHICINE 0.6MG TAB TAKE ONE TABLET BY MOUTH EVERY ACTIVE DAY FOR GOUT 9) DICLOFENAC NA 1% TOP GEL APPLY 2 GRAMS TO UPP ER ACTIVE EXTREMITIES TOPICALLY FOUR TIMES DAILY NEEDE D FOR PAIN/INFLAMMATION. *DO NOT EXCEED 16 GRAMS DAILY TO ANY JOINT OF LOWER EXTREMITIES. DO NOT EXCEED 8 GRAMS DAILY TO ANY JOINT OF UPPER EXTREMITIES. DO NOT EXCEED TOTAL DOSE OF 32 GRA MS DAILY OVER ALL JOINTS. 10) FOLIC ACID 1MG TAB TAKE ONE TABLET BY MOUTH EVERY DAY ACTIVE VITAMIN/NUTRITION SUPPLEMENT 11) FUROSEMIDE 40MG TAB TAKE ONE TABLET BY MOUTH TWICE A ACTIVE DAY TO REMOVE FLUID/CONTROL BLOOD PRESSURE 12) ISOSORBIDE MONONITRATE 30MG SA TAB TAKE ONE TABLET BY ACTIVE (S) MOUTH EVERY DAY TO PREVENT ANGINA 13) METOPROLOL SUCCINATE 200MG SA TAB TAKE ONE T ABLET BY ACTIVE MOUTH EVERY DAY FOR BLOOD PRESSURE/HEART 14) OMEPRAZOLE 20MG EC CAP TAKE ONE CAPSULE BY M OUTH ACTIVE (S) TWICE A DAY FOR STOMACH ACID (TAKE HALF-HOUR BE FORE A MEAL(S) 15) POTASSIUM CHLORIDE 10MEQ SA TAB TAKE TWO TAB LETS BY ACTIVE MOUTH EVERY DAY TO SUPPLEMENT POTASSIUM Active Non-VA Medications Status 1) Non-VA CAPSAICIN 0.1% CREAM SMALL AMOUNT TOPI SHERWIN ACTIVE TWICE DAILY NEEDED 16 Total Medications Allergies ALLERGIES/ADVERSE REACTIONS - NONE FOUND Physical Exam: Vital: DATE/TIME TEMP PULSE RESP BP PAIN WEIGHT 09/10/21 @ 1139 98.7 96 22 141/86 10 General: Well appearing HEENT: Conjunctiva clear CV: normal rate, irregularly irregular rhythm Lungs: Clear to auscultation, no wheezes or rale s ABD: obese abdomen Ext: pitting edema of bilateral lower extremitie s extending proximally to at least mid-ray Skin: no visible rheumatologic rashes Neuro: CN 2-12 grossly intact MSK: Hands: no synovitis Wrist: no swelling, non-tender Elbows: FROM, no swelling Shoulders: FROM Knees: FROM, no effusions Ankles: limited ROM bilaterally in all planes bu t greater than expected, no appreciable joint effusions (swelling is in soft tissues), significant tenderness to palpation bilaterally Feet: +MTP compression tenderness bilaterally Labs: Reviewed. As above in HPI. Imaging: Reviewed. As above in HPI. PROCEDURE NOTE Procedure: left tibiotalar joint arthrocentesis Risks and benefits were disc ussed with the patient, verbal consent was obtained with patient's as edward ramesh. Unable to obtain iMed consent given encounter in Emergency Department. The pa tient was positioned with his left leg full extended and the aspiration site was marked with a pen. T he aspiration site was then cleaned with iodine swab x3. A 27G, 1.25 needle was used to give 2 cc 1% lidocaine. Then, a 22G, 1.5 needle was used to attempt to aspirate synovial fluid from the left tibiotalar joint. Ho wever, no synovial fluid was obtained. There were no immediatecompl ications of the procedure. He was given education to look for fever, swelling or redness. Assessment/Plan 75M with PMH significant for afib on Eliquis, HTN, HLD, GERD, and prior CVA who presented to the ED today with bilateral foot/an kle pain. Patient's presentation is ac tually remarkably similar to rheumatology's initial with him back in Spring 2016. As was the case th en, gout and seronegative rheumatoid arthritis remain in the differential, although the latter was favored. 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 Fortunately, his ne w PCP is actively uptitrating his allopurinol to get his uric acid level at go al. The fact that he has already taken 20 mg prednisone today has likely complicated our evaluation as it appears it has resulted in a notable improvement in his symptoms. Indeed, attempted arthrocentesis of hi s left tibiotalar joint was unsuccessful. Of note, he co ntinues to have a significant degree of soft tissue swelling/lower extremity edema despite his curre nt dose of Lasix 40 mg BID, which in itself can be quite painful. -recommend conservative management at this time with icing and compression stockings -consider short course of Celebrex -agree with initiation and titration of urate-lo wering therapy by PCP so far; recommend continued titration of allopurinol to obtain goal uric acid between 4.0 and 5.0 -agree with continuation of colchicine 0.6 mg daily while uric acid is actively being lowered and agree with planned discontinua tion of this medication once goal uric acid level is obtained within 6 months The patient was seen and discussed with Dr. Danay lock /almaz/ GENET Jones [facility] Rheumatology Fellow Signed: 09/10/2021 16:31 /almaz/ BE Jones barrel raiser Bone Char Operator Cosigned: 09/10/2021 17:08 09/10/2021 ADDENDUM STATUS: COMPLETED I have seen and examined the patient and agree w ith the fellow's history, exam, and assessment and plan. Xrays may also show some chondrocal and hydroxya patite in addition to the tophus, erosion, and osteophytes/OA findings. We can arrange for f/u in Rheum clinic, should h is PCP think this is appropriate. Will copy her on this consult note. /almaz/ BE Jones barrel raiser Bone Char Operator Signed: 09/10/2021 17:09 Receipt Acknowledged By: 09/15/2021 09:11 /almaz/ VIVIANA SANCHEZ MD Staff Physician 09/15/2021 ADDENDUM STATUS: COMPLETED Much appreciated - will discuss with patient. Bora hutchins. /almaz/ VIVIANA SANCHEZ MD Staff Physician Signed: 09/15/2021 09:11
--- OUTSIDE RECORDS SUMMARY | 2021-12-31 13:00 | XMS_ITS | Encounter Summary ---
:1945 Author Organization [facility] Address [address] [place] [address] Support Name Relationship Address Phone CATHERINE SERNA Unavailable [address] [phone] [place] [address] COLEMAN, DAUGHTER Unavailable Unavailable Insurance Providers: All [...] MEDICARE MEDICARE PART Oct 22, PART A [id number] DAVIGN ON, PATIENT (WNR) (M) A 2011 UP35 1 RUPERT MEDICARE MEDICARE PART Oct 22, PART A [id number] [phone] WILIAMIGN ON, PATIENT (WNR) (M) A 2011 [id number] RUPERT Selected Encounter This section includes the information on record at [facility] for the Encounter. Date/Time Encounter Type Encounter Description Reason Provider Source Aug 02, 2021 12:52 Outpatient Encounter TELEPHONE TRIAGE PM IHE Encounter Template Text not used by [facility] Plan of Treatment: Future Appointments (+ 6 months) and Future Tests (+/- 45 days) The Plan of Treatment section includes future care activities for the patient from all [facility] treatmentfacilities. This section includes future appointments and future orders which are active, pending orscheduled.Future Appointments This section includes appointments that were scheduled to occur 6 months from the date of the Encounter, up to a maximum of 20 appointments. The data comes from all [facility] treatment facilities. Appointment Date/Time Appointment Type Appointment Facili ty Name Aug 10, 2021 11:00 AM AMBULATORY - MEDICINE [facility] Aug 12, 2021 01:00 PM AMBULATORY - MEDICINE [facility] September 10, 2021 11:25 AM AMBULATORY - MEDICINE [facility] September 16, 2021 01:30 PM AMBULATORY - MEDICINE [facility] Oct 21, 2021 10:30 AM AMBULATORY - MEDICINE [facility] Oct 21, 2021 11:00 [facility] Oct [facility], 2021 11:00 AM [facility] - MEDICINE [facility] Dec 23, 2021 02:04 [facility] Dec 24, 2021 01:00 PM [facility] - MEDICINE [facility] Dec 28, 2021 02:30 PM AMBULATORY - MEDICINE [facility] Dec 28, 2021 02:31 PM AMBULATORY - NONE [facility] Jan 18, 2022 11:30 AM [facility] Lab Results: +/- 30 days of [...] Result - Unit Interpretation Reference Range Comment Aug 10, 2021 10:43 [facility] URIC ACID Specimen T ype: PLASMA AM Comment: Tests performed on [facility] (405) SN:[id number] Ordering Provid er: BRENDA SANCHEZ Report Released Date/Time: Aug 10, 2021 10:39 AM Reporting [facility] [address] [facility] [address] Performing Lab: [facility] [address] [facility] [address] URIC ACID 7.9 3.3-8.7 Aug 10, 2021 [facility] P4 GLU,BUN,CREAT,LYTES,CA Speci men Type: PLASMA 10:43 AM CLINIC Comment: Tests performed on [facility] (405) SN:[id number] Ordering Provid er: BRENDA SANCHEZ Report Released Date/Time: Aug 10, 2021 10:39 AM Reporting [facility] [address] [facility] [address] Performing [facility]: [facility] [address] [facility] [address] UREA NITROGEN 14 7-25 SODIUM 140 135-145 POTASSIUM 3.8 3.5-5.0 CHLORIDE 105 100-110 CARBON DIOXIDE 24 20-30 ANION GAP 11 4-16 GLUCOSE 101 H 65-100 CREATININE 1.14 0.5-1.5 CALCIUM 8.3 L 8.5-10.5 eGFR(CKD-EPI 2020) 67 >60 Jul 13, 2021 [place] [address] GLU,BUN,CREAT,LYTES,CA Speci men Type: PLASMA 12:28 PM CLINIC Comment: Tests performed on [employer] (405) SN:[id number] Ordering Provid er: BRENDA SANCHEZ Report Released Date/Time: Jul 13, 2021 12:21 PM Reporting Lab: [facility] [address] [facility] [address] Performing Lab: [facility] [address] [facility] [address] UREA NITROGEN 14 7-25 SODIUM 138 135-145 POTASSIUM 4.1 3.5-5.0 CHLORIDE 103 100-110 CARBON DIOXIDE 23 20-30 ANION GAP 12 4-16 GLUCOSE 97 65-100 CREATININE 1.10 0.5-1.5 CALCIUM 8.6 8.5-10.5 eGFR(CKD-EPI 2020) 70 >60 Jul 13, 2021 12:28 [facility] CBC PROFILE Specimen T ype: BLOOD PM No comment enter ed. Ordering Provid er: BRENDA SANCHEZ Report Released Date/Time: Jul 13, 2021 12:20 PM Reporting Lab: [facility] [address] [facility] [address] Performing Lab: [facility] [address] [facility] [address] WBC 8.8 4.5-11.0 RBC 5.25 4.23-5.66 HGB [...] ABSOLUTE NRBC 0.00 0-0 Jul 07, 2021 [facility] GLYCOHEMOGLOBIN (A1C Specimen T ype: BLOOD 11:03 AM CLINIC ONLY) Comment: Tests performed on [employer] (405) SN:[id number] Ordering Provid er: BRENDA SANCHEZ Report Released Date/Time: May 20, 2021 10:59 AM Reporting Lab: [facility] [address] [facility] [address] Performing Lab: [facility] [employer] [address] [facility] [address] HEMOGLOBIN A1C 6.1 H 4.0-5.6 Jul 07, 2021 [facility] IRON+TIBC(P) Specimen Type : PLASMA 11:03 AM Comment: Tests performed on [employer] (405) SN:[id number] Ordering Provid er: BRENDA SANCHEZ Report Released Date/Time: May 20, 2021 10:59 AM Reporting Lab: [facility] [address] [facility] [address] Performing Lab: [facility] [address] [facility] [address] IRON 35 L 40-160 TIBC 470 204-475 IRON SATURATION(P) 7 L >15 UIBC(P) 435 H 126-382 Jul 07, 2021 11:03 [facility] FERRITIN Specimen T ype: SERUM AM Comment: Tests performed on [employer] (405) SN:[id number] Ordering Provid er: BRENDA SANCHEZ Report Released Date/Time: May 20, 2021 10:59 AM Reporting Lab: [facility] [address] [facility] [address] Performing Lab: [facility] [address] [place] [facility] [place] [place] [address] FERRITIN 21.5 20-300 Jul 07, 2021 11:03 [facility] URIC ACID Specimen T ype: PLASMA AM Comment: Tests performed on [facility] (405) SN:[id number] Ordering Provid er: BRENDA SANCHEZ Report Released Date/Time: May 20, 2021 10:59 AM Reporting Lab: [facility] [address] [facility] [address] Performing Lab: [facility] [address] [facility] [address] URIC ACID 8.9 H 3.3-8.7 Jul 07, 2021 11:03 [facility] PHOSPHORUS Specimen T ype: PLASMA AM Comment: Tests performed on [employer] (405) SN:[id number] Ordering Provid er: BRENDA SANCHEZ Report Released Date/Time: May 20, 2021 10:59 AM Reporting Lab: [facility] [address] [facility] [address] Performing Lab: [facility] [address] [facility] [address] PHOSPHORUS 3.5 2.5-5.0 Jul 07, 2021 11:03 [facility] ALBUMIN Specimen T ype: PLASMA AM Comment: Tests performed on [facility] (405) SN:[id number] Ordering Provid er: BRENDA SANCHEZ Report Released Date/Time: May 20, 2021 10:59 AM Reporting Lab: [facility] [address] [facility] [address] Performing Lab: [facility] [address] [facility] [address] ALBUMIN 3.2 3.2-5.0 Jul 07, 2021 [place] [address] GLU,BUN,CREAT,LYTES,CA Speci men Type: PLASMA 11:03 AM CLINIC Comment: Tests performed on [employer] (405) SN:[id number] Ordering Provid er: BRENDA SANCHEZ Report Released Date/Time: May 20, 2021 10:59 AM Reporting Lab: [facility] [address] [facility] [address] Performing Lab: [facility] [address] [facility] [address] UREA NITROGEN 17 7-25 SODIUM 131 L 135-145 POTASSIUM 3.9 3.5-5.0 CHLORIDE 97 L 100-110 CARBON DIOXIDE 20 20-30 ANION GAP 14 4-16 GLUCOSE 128 H 65-100 CREATININE 1.21 0.5-1.5 CALCIUM 8.3 L 8.5-10.5 eGFR(CKD-EPI 2020) 63 >60 Jul 07, 2021 [facility] VIT D 25-OH([facility]) Specimen Typ e: SERUM 11:03 AM Comment: Tests performed on [employer] (405) SN:[id number] Ordering Provid er: BRENDA SANCHEZ Report Released Date/Time: May 20, 2021 10:59 AM Reporting Lab: [facility] [address] [facility] [address] Performing Lab: [facility] [address] [facility] [address] VIT D 25-OH(J) 17.6 L 20-50 Jul 07, 2021 [facility] PTH-INTACT([facility]) Specimen Type : SERUM 11:03 AM Comment: Tests performed on [facility] (405) SN:[id number] Ordering Provid er: BRENDA SANCHEZ Report Released Date/Time: May 20, 2021 10:59 AM Reporting Lab: [facility] [address] [facility] [address] Performing Lab: [facility] [address] [facility] [address] PTH-INTACT([facility]) 319.0 H 8.7-77.1 Jul 07, 2021 11:03 [facility] CBC PROFILE Specimen T ype: BLOOD AM No comment enter ed. Ordering Provid er: BRENDA SANCHEZ Report Released Date/Time: May 20, 2021 10:59 AM Reporting Lab: [facility] [address] [facility] [address] Performing Lab: [facility] [address] [facility] [address] WBC 16.2 H 4.5-11.0 RBC 5.29 4.23-5.66 [...] ABSOLUTE NRBC 0.00 0-0 Jul 07, 2021 [facility] MICROALBUMIN/CREATININE RATIO S pecimen Type: URINE 11:03 AM CLINIC PANEL Comment: Tests performed on [employer] (405) SN:[id number] Ordering Provid er: BRENDA SANCHEZ Report Released Date/Time: May 20, 2021 10:59 AM Reporting Lab: [facility] [address] [facility] [address] Performing Lab: [facility] [address] [facility] [address] CREATININE (URINE,RANDOM) 48.4 MICROALBUMIN, QUANTITATIVE 3.6 0.0 -29.9 MICROALBUMIN/CREATININE RATIO 74.4 H 0.0-29.9 Jul 07, 2021 [facility] URINALYSIS W/REFLEX Specimen Type: URINE 11:03 AM TO CULTURE No comment enter ed. Ordering Provid er: BRENDA SANCHEZ Report Released Date/Time: May 20, 2021 10:59 AM Reporting Lab: [facility] [address] [facility] [address] Performing Lab: [place] [facility] [address] [facility] [address] URINE COLOR Yellow YELLOW SPECIFIC GRAVITY 1.008 [...] the Encounter took place. Date/Time Current Smoking Comment Facility Status Dec 19, 2017 11:42 AM QUIT TOBACCO USE > 7 [place] YEARS AGO Former user of tobacco products quit 27 yrs ago [facility] Tobacco Use History This section includes a history of the smoking, or tobacco- related health factors, that were collected on or before the date of the Encounter. The data comes from the [place] facility where the Encounter took place. Date/Time Smoking Status/Tobacco Use Comment [facility] it Oct 26, 2016 09:17 AM QUIT TOBACCO [...] OF SMOKING DM Shira [place] 12/25 [facility] August 27, 2004 01:30 PM QUIT TOBACCO USE IN PAST Deana MYERST YEAR 3 years [facility] Dec 19, 2003 01:13 PM QUIT TOBACCO USE IN PAST W MARY MYERST YEAR [facility] September 05, 2003 02:45 PM HISTORY OF SMOKING DM [place] quit 12/25 [facility] September 05, 2003 02:45 PM QUIT TOBACCO USE IN PAST W MARY MYERST YEAR quit 12/26 [facility] Mar 27, 2002 11:07 AM CURRENT SMOKER DM MYERST Pt. smokes 1 ppd. [facility] Mar 14, 2001 03:27 PM CURRENT SMOKER DM [place] [facility] Advance Directives: All historical [...] 2010 ADVANCE DIRECTIVE SVETLANA FRANK J [address] [facility] Encounter Notes: All associated encounter notes This section contains the clinical notes associated to the Encounter. Date/Time Encounter Note(s) Provider Source Aug 02, 2021 12:52 PM TELEPHONE ENCOUNTER NOTE: DONNA BARRIENTOS LOCAL TITLE: VISN 1 [facility] MED RENEWAL [facility] STANDARD TITLE: TELEPHONE ENCOUNTER NOTE DATE OF NOTE: AUG 02, 2021@12:52:57 ENTRY DATE: AUG 02, 2021@12:55:09 AUTHOR: DONNA BARRIENTOS EXP COSIGNER: URGENCY: STATUS: COMPLETED VISN 1 CCC MED RENEWAL Has ADDENDA Type of call: PHARMACY. Caller Response: ADM CALL RESOLVED SPOUSE called in for RUPERT SERNA ([phone]) . Comments: calls again about the folic acid- pt is now out. Please renew and mail david- overnight if possible. Evaluation/Management Code: HC PRO PHONE CALL 5- 10 MIN ([id number]). Starting at: 08/02/2021 @ 12:52:57 PM Ending at: 08/02/2021 @ 12:54:11 PM Length: 1 minutes. Author: DONNA BARRIENTOS Caller Area: [facility] The following identifiers were used to verify th is patient: SSN. Chief Complaint: Not applicable to call. Class Code: Other specified counseling. Contact Patient's Email Address: /es/ DONNA GOMEZ [address] [facility] Signed: 08/02/2021 12:55 Receipt Acknowledged By: * AWAITING SIGNATURE * BRENDA SANCHEZ * AWAITING SIGNATURE * MATTHEW TIRADO 08/02/2021 ADDENDUM STATUS: COMPLETED PCP to renew as appropriate as medication is exp ired. /almaz/ MATTHEW TIRADO LPN Signed: 08/02/2021 14:35
--- OUTSIDE RECORDS SUMMARY | 2021-12-31 13:00 | XMS_ITS | Encounter Summary ---
:1945 Author Organization [facility] Address [address] [place] [id number] Support Name Relationship Address Phone CATHERINE SERNA Unavailable [address] [place] [address] COLEMAN, DAUGHTER Unavailable Unavailable Insurance Providers: All [...] MEDICARE MEDICARE PART Oct 22, PART A [id number] WILIAMIGN ON, PATIENT (WNR) (M) A 2011 UP35 1 RUP[place] MEDICARE MEDICARE PART Oct 22, PART A [id number] [id number] KATIE ON, PATIENT (WNR) (M) A 2011 [id number] RUPERT Selected Encounter This section includes the information on record at [place] for the Encounter. Date/Time Encounter Type Encounter Reason Provider Source Description Aug 12, 2021 Outpatient TELEPHONE PRIMARY ICD-10-CM M10.9 LORENZA-Kasandra QUINN 01:00 PM Encounter CARE Gout, unspecified BRENDA KRAMER with Provider Comments: Gout (SNOMED CT [id number]) IHE Encounter Template Text not used by [place] Assessments - Encounter Diagnoses This section includes the primary and secondary diagnoses documented for the Encounter. Date/Time Primary/Secondary Diagnosis Name Provider Source Diagnosis Aug 12, 2021 PRIMARY Gout, unspecified LORENZA-[facility] 01:[address] [facility] Plan of Treatment: Future Appointments (+ [...] 20 appointments. The data comes from all [place] treatment facilities. Appointment Date/Time Appointment Type Appointment Facili ty Name September 10, 2021 11:25 AM AMBULATORY - MEDICINE [facility] September 16, 2021 01:30 PM [facility] Oct 21, 2021 10:30 AM [facility] Oct 21, 2021 11:00 AM [facility] Oct 26, 2021 11:00 AM [facility] Dec 23, 2021 02:04 AM AMBULATORY - MEDICINE [facility] Dec 24, 2021 01:00 PM [facility] Dec 28, 2021 02:30 PM AMBULATORY - MEDICINE [facility] Dec 28, 2021 02:31 PM AM[facility]ULATORY - [facility] Jan 18, 2022 11:30 AM [facility] Lab Results: +/- 30 days of the encounter This section includes the Chemistry and Hematology Lab Results on record with [place] for the patient. Radiology Reports and Pathology Reports are provided separately, in subsequent sections.Lab Results This section contains the Chemistry/Hematology Results that were resulted 30 days before or 30 daysafter the date of the Encounter. Date/Time Source Result Type Result - Unit Interpretation Reference Range Comment September 10, 2021 [facility] URINALYSIS W/REFLEX Specimen Ty pe: URINE 01:00 PM [facility] TO CULTURE No comment enter ed. Ordering Provid er: MARIO SANCHEZ Report Released Date/Time: September 10, 2021 12:10 PM Reporting Lab: [facility] [address] [address] Performing Lab: [facility] [address] [address] URINE COLOR Yellow YELLOW SPECIFIC GRAVITY 1.018 [...] PM [facility] Comment: Tests performed on Brito Insulation Hoseman (405) SN:[id number] Ordering Provid er: MARIO SANCHEZ Report Released Date/Time: September 10, 2021 12:10 PM Reporting Lab: [place] [facility] [address] [address] Performing Lab: [place] [facility] [address] [address] CRP(INFLAMMATORY) 68.2 H 0-5.0 September 10, 2021 12:15 PM [place] URIC ACID Specimen Type: PLASMA [facility] Comment: Tests performed on Brito Insulation Hoseman (405) SN:[id number] Ordering Provid er: MARIO SANCHEZ Report Released Date/Time: September 10, 2021 12:10 PM Reporting Lab: [place] [facility] [address] [address] Performing Lab: [place] [facility] [address] [address] URIC ACID 6.3 3.3-8.7 September 10, 2021 12:15 [place] LIVER PROFILE Specimen Typ e: PLASMA PM [facility] Comment: Tests performed on Brito Lionseek (405) SN:[id number] Ordering Provid er: MARIO SANCHZE Report Released Date/Time: September 10, 2021 12:10 PM Reporting Lab: [place] [facility] [address] [address] Performing Lab: [place] [facility] [address] [address] PROTEIN, TOTAL 8.1 6.0-8.5 ALBUMIN 3.3 3.2-5.0 BILIRUBIN, TOTAL 0.6 0.2-1.2 ALKALINE PHOSPHATASE 118 40-150 ALT(SGPT) 14 7-52 AST(SGOT) 18 5-34 FIB-4 SCORE 0.87 <2.67 September 10, 2021 [place] P4 GLU,BUN,CREAT,LYTES,CA Speci men Type: PLASMA 12:15 PM [facility] Comment: Tests performed on Brito Insulation Hoseman (405) SN:[id number] Ordering Provid er: MARIO SANCHEZ Report Released Date/Time: September 10, 2021 12:10 PM Reporting Lab: [facility] [address] [address] Performing Lab: [facility] [address] [address] UREA NITROGEN 17 7-25 SODIUM 138 135-145 POTASSIUM 3.8 3.5-5.0 CHLORIDE 102 100-110 CARBON DIOXIDE 22 20-30 ANION GAP 14 4-16 GLUCOSE 130 H 65-100 CREATININE 1.25 0.5-1.5 CALCIUM 8.2 L 8.5-10.5 eGFR(CKD-EPI 2020) 60 >60 September 10, 2021 12:15 [facility] CBC PROFILE Specimen Typ e: BLOOD PM [facility] No comment enter ed. Ordering Provid er: MARIO SANCHEZ Report Released Date/Time: September 10, 2021 12:10 PM Reporting Lab: [facility] [address] [address] Performing Lab: [facility] [address] [address] WBC 15.5 H 4.5-11.0 RBC 4.84 4.23-5.66 [...] NRBC 0.00 0-0 September 10, 2021 11:30 [facility] COVID-19 AG SCREEN Specimen Type: NASAL CAVITY AM [facility] PANEL BINAX(405) Comment: Testi ng Performed By: Nicole Ramirez Ordering Provid er: RAJENDRA OLIVARES Report Released Date/Time: September 14, 2021 10:11 AM Reporting [facility] [address] [address] [facility]forming [facility]: [facility] [address] [address] COVID-19 AG SCRN(j BINAX) NEGATIVE NE G Aug 10, 2021 10:43 [facility] URIC ACID Specimen T ype: PLASMA AM Comment: Tests performed on Brito Lionseek (405) SN:[id number] Ordering Provid er: BRENDA SANCHEZ Report Released Date/Time: Aug 10, 2021 10:39 AM Reporting Lab: [facility] [address] [address] [facility] [address] [address] URIC ACID 7.9 3.3-8.7 Aug 10, 2021 [facility] P4 GLU,BUN,CREAT,LYTES,CA Speci men Type: PLASMA 10:43 AM CLINIC Comment: Tests performed on Brito Lionseek (405) SN:[id number] Ordering Provid er: BRENDA SANCHEZ Report Released Date/Time: Aug 10, 2021 10:39 AM Reporting Lab: [facility] [address] [address] [facility] [address] [address] UREA NITROGEN 14 7-25 SODIUM 140 135-145 POTASSIUM 3.8 3.5-5.0 CHLORIDE 105 100-110 CARBON DIOXIDE 24 20-30 ANION GAP 11 4-16 GLUCOSE 101 H 65-100 CREATININE 1.14 0.5-1.5 CALCIUM 8.3 L 8.5-10.5 eGFR(CKD-EPI 2020) 67 >60 Social History: Smoking Status (Most current) and Tobacco Use (All prior to encounter date) This section includes the most current, and the historical, smoking and tobacco-related health factors from the [place] facility where the Encounter took place.Current Smoking Status This section includes the most current smoking, or tobacco-related health factor, from the [place] facility where the Encounter took place. Date/Time Current Smoking Status Comment Facility Nov 16, 2020 10:30 AM VA-TOBACCO FORMER USER [facility] Tobacco Use History This section includes a history of the smoking, or tobacco- related health factors, that were collected on or before the date of the Encounter. The data comes from the [place] facility where the Encounter took place. Date/Time Smoking Status/Tobacco Use Comment [facility] Nov 16, 2020 10:30 AM VA-TOBACCO QUIT 15 YRS OR MORE [facility] September 06, 2018 11:34 AM VA-TOBACCO FORMER USER [facility] September 06, 2018 11:34 AM VA-TOBACCO QUIT 15 YRS OR MORE [facility] Advance Directives: All historical and current Section Date Range: From patient's date of to the date document was created. This section includes ALL of a patient's completed or amended [place] Advance and Rescinded Directives. The entries below indicate that a directive exists for the patient, but an actual copy is not included with this document. The data comes from all [facility]. Date Advance Directives Provider Source Apr 06, 2010 ADVANCE DIRECTIVE SVET[address]NA FRANK CT [facility] Radiology Reports: +/- 30 days of [...] the Encounter. The data comes from all [place] treatment facilities. Date/Time Radiology Report Provider Source September 10, 2021 12:11 PM FOOT-3 VIEWS (ROUTINE): ORION ZAVALA [place] YANEZ [id number] -1945 M [facility] Exm Date: SEPTEMBER 10, 2021@12:11 Req Phys: MARIO SANCHEZ Pat Loc: [facility] E D DAYS M1RD (Req'g Loc) Img Loc: XRAY (OOS) Service: Unknown (Case [id number] COMPLETE) FOOT-3 VIEWS (ROUTINE) (RAD Detailed) CPT:92168 Proc Modifiers : RIGHT Reason for Study: bilat foot pain, hx of gout Clinical History: Report Status: Verified Date Reported: SEPTEMBER 10, 2021 Date Verified: SEPTEMBER 10, 2021 Component Lab Tech E-Sig:/ES/ORION ZAVALA Report: Bilateral ankles and bilateral [...] REQUIRED Primary Interpreting Staff: Staff MARY CADENA (Component Lab Tech) / September 10, 2021 12:11 PM FOOT-3 VIEWS (ROUTINE): ORION ZAVALA [place] [facility] [facility] RUP[place] SERNA [id number] -1945 M [facility] Exm Date: SEPTEMBER 10, 2021@12:11 Req Phys: MARIO SANCHEZ Pat Loc: [facility] E D DAYS M1 (Req'g Loc) Img Loc: XRAY (OOS) Service: Unknown (Case [id number] COMPLETE) FOOT-3 VIEWS (ROUTINE) (RAD Detailed) CPT:86814 Proc Modifiers : LEFT Reason for Study: bilat foot pain, hx of gout Clinical History: Report Status: Verified Date Reported: SEPTEMBER 10, 2021 Date Verified: SEPTEMBER 10, 2021 Component Lab Tech E-Sig:/ES/ORION ZAVALA Report: Bilateral ankles and bilateral [...] REQUIRED Primary Interpreting Staff: Staff MARY CADENA (Component Lab Tech) / September 10, 2021 12:11 PM ANKLE (ROUTINE): ORION ZAVALA [facility] RUP[place] SERNA SHIVANI [id number] -1945 [facility] Ex Date: SEPTEMBER 10, 2021@12:11 Req Phys: MARIO SANCHEZ Pat Loc: [facility] E D DAYS M1RD (Req'g Loc) Img Loc: XRAY (OOS) Service: Unknown (Case [id number] COMPLETE) ANKLE (ROUTINE) (RAD Detaile d) CPT:34041 Proc Modifiers : RIGHT Reason for Study: bilat foot pain, hx of gout Clinical History: Report Status: Verified Date Reported: SEPTEMBER 10, 2021 Date Verified: SEPTEMBER 10, 2021 Component Lab Tech E-Sig:/ES/ORION ZAVALA Report: Bilateral ankles and bilateral [...] REQUIRED Primary Interpreting Staff: Staff MARY CADENA (Component Lab Tech) /September 10, 2021 12:11 PM ANKLE (ROUTINE): ORION ZAVALA [place] SER[place] SHIVANI [id number] -1945 [facility] Ex[facility] Date: SEPTEMBER 10, 2021@12:11 Req Phys: MARIO SANCHEZ Pat Loc: [facility] E D DAYS M1 (Req'g Loc) Img Loc: XRAY (OOS) Service: Unknown (Case [id number] COMPLETE) ANKLE (ROUTINE) (RAD Detaile d) CPT:47235 Proc Modifiers : LEFT Reason for Study: bilat foot pain, hx of gout Clinical History: Report Status: Verified Date Reported: SEPTEMBER 10, 2021 Date Verified: SEPTEMBER 10, 2021 Component Lab Tech E-Sig:/ES/ORION ZAVALA Report: Bilateral ankles and bilateral [...] REQUIRED Primary Interpreting Staff: Staff MARY CADENA (Component Lab Tech) / Encounter Notes: All associated encounter notes This section contains the clinical notes associated to the Encounter. Date/Time Encounter Note(s) Provider Source Aug 12, 2021 01:05 PM PRIMARY CARE TELEPHONE ENCOUNTER NOTE: ART SANCHEZ [facility] LOCAL TITLE: Telephone Note-Primary Care TIMBO STANDARD TITLE: PRIMARY CARE TELEPHONE ENCOUNTER NOTE DATE OF NOTE: AUG 12, 2021@13:05 ENTRY DATE: AUG 12, 2021@13:05:48 AUTHOR: JOCELYN SANCHEZ EXP COSIGNER: URGENCY: STATUS: COMPLETED Work Phone: NONE Cell phone: Telephone Note 75M h/o gout presenting for telephone follow-up for allopurinol titration after recent uric acid level testing. Some chornic bilateral ankle pain as well as elb ow and shoulder pain. Thinks starting Allopurinol is helping. In fact, pain i s better than appointment in late June. # Gout Uric acid not yet at goal, but improved 7.9. No flares since June. Clarified medication changes w/ , too. - Increase Allopurinol 200mg daily - Continue Colchicine 0.6mg for 60 more days ( en stop overlap) 19 minutes Will RTC for labs prior to F2F appt and also cov id vaccine /almaz/ VIVIANA SANCHEZ MD Staff Physician Signed: 08/12/2021 13:28
--- OUTSIDE RECORDS SUMMARY | 2021-12-31 13:01 | XMS_ITS | Encounter Summary ---
:1945 Author Organization [facility] Address [address] [place] [address] Support Name Relationship Address Phone CATHERINE SERNA Unavailable [address] [phone] [place] [address] COLEMAN, DAUGHTER Unavailable Unavailable Insurance Providers: All [...] MEDICARE MEDICARE PART Oct 22, PART A [id number] [phone] DAVIGN ON, PATIENT (WNR) (M) A 2011 UP35 1 RUPERT MEDICARE MEDICARE PART Oct 22, PART A [id number] [id number] WILIAMIGN ON, PATIENT (WNR) (M) A 2011 [id number] RUPERT Selected Encounter This section includes the information on record at OR for the Encounter. Date/Time Encounter Type Encounter Description Reason Provider Source Jul 13, 2021 11:13 Outpatient Encounter TELEPHONE TRIAGE AM IHE Encounter Template Text not used by OR Plan of Treatment: Future Appointments (+ 6 months) and Future Tests (+/- 45 days) The Plan of Treatment section includes future care activities for the patient from all OR treatmentfacilities. This section includes future appointments and future orders which are active, pending orscheduled.Future Appointments This section includes appointments that were scheduled to occur 6 months from the date of the Encounter, up to a maximum of 20 appointments. The data comes from all OR treatment facilities. Appointment Date/Time Appointment Type Appointment Facili ty Name Aug 10, 2021 11:00 AM AMBULATORY - MEDICINE [facility] Aug 12, 2021 01:00 PM AMBULATORY - MEDICINE [facility] September 10, 2021 11:25 AM AMBULATORY - MEDICINE [facility] September 16, 2021 01:30 [facility] Oct 21, 2021 10:30 [facility] Oct 21, 2021 11:00 [facility] Oct 26, 2021 11:00 [facility] Dec 23[facility] 2021 02:04 [facility] Dec 24, 2021 01:00 [facility] Dec 28, 2021 02:30 PM AMBULATORY - MEDICINE [facility] Dec 28, 2021 02:31 PM AMBULATORY - NONE [facility] Lab Results: +/- 30 days of the [...] Reference Range Comment Aug 10, 2021 10:43 [facility] URIC ACID Specimen T ype: PLASMA AM Comment: Tests performed on Brito Telormedix (405) SN:[id number] Ordering Provid er: BRENDA SANCHEZ Report Released Date/Time: Aug 10, 2021 10:39 AM [facility] [address] [address] Performing Lab: [facility] [address] [address] URIC ACID 7.9 3.3-8.7 Aug 10, 2021 [facility] P4 GLU,BUN,CREAT,LYTES,CA Speci men Type: PLASMA 10:43 AM CLINIC Comment: Tests performed on Brito Telormed[employer] (405) SN:[id number] Ordering Provid er: BRENDA SANCHEZ Report Released Date/Time: Aug 10, 2021 10:39 AM Reporting Lab: [facility] [address] [address] Performing Lab: [facility] [address] [address] UREA NITROGEN 14 7-25 SODIUM 140 135-145 POTASSIUM 3.8 3.5-5.0 CHLORIDE 105 100-110 CARBON DIOXIDE 24 20-30 ANION GAP 11 4-16 GLUCOSE 101 H 65-100 CREATININE 1.14 0.5-1.5 CALCIUM 8.3 L 8.5-10.5 eGFR(CKD-EPI 2020) 67 >60 Jul 13, 2021 [facility] P4 GLU,BUN,CREAT,LYTES,CA Speci men Type: PLASMA 12:28 PM CLINIC Comment: Tests performed on RealD (405) SN:[id number] Ordering Provid er: BRENDA SANCHEZ Report Released Date/Time: Jul 13, 2021 12:21 PM Reporting Lab: [facility] [address] [address] Performing Lab: [facility] [address] [address] UREA NITROGEN 14 7-25 SODIUM 138 135-145 POTASSIUM 4.1 3.5-5.0 CHLORIDE 103 100-110 CARBON DIOXIDE 23 20-30 ANION GAP 12 4-16 GLUCOSE 97 65-100 CREATININE 1.10 0.5-1.5 CALCIUM 8.6 8.5-10.5 eGFR(CKD-EPI 2020) 70 >60 Jul 13, 2021 12:28 [facility] CBC PROFILE Specimen T ype: BLOOD PM No comment enter ed. Ordering Provid er: BRENDA SANCHEZ Report Released Date/Time: Jul 13, 2021 12:20 PM Reporting Lab: [facility] [address] [address] Performing Lab: [facility] [address] [address] WBC 8.8 4.5-11.0 RBC 5.25 4.23-5.66 HGB [...] AM CLINIC ONLY) Comment: Tests performed on Brit[employer] Telormed[employer] (405) SN:[id number] Ordering Provid er: BRENDA SANCHEZ Report Released Date/Time: May 20, 2021 10:59 AM Reporting Lab: [facility] [address] [address] [facility] [address] [address] HEMOGLOBIN A1C 6.1 H 4.0-5.6 Jul 07, 2021 11:03 [facility] FERRITIN Specimen T ype: SERUM AM Comment: Tests performed on RealD (405) SN:[id number] Ordering Provid er: BRENDA SANCHEZ Report Released Date/Time: May 20, 2021 10:59 AM Reporting [facility] [address] [address] [facility] [address] [address] FERRITIN 21.5 20-300 Jul 07, 2021 [facility] IRON+TIBC(P) Specimen Type : PLASMA 11:03 AM Comment: Tests performed on Brit[employer]ormed[employer] (405) SN:[id number] Ordering Provid er: BRENDA SANCHEZ Report Released Date/Time: May 20, 2021 10:59 AM Reporting [facility] [address] [address] Performing Lab: [facility] [address] [address] IRON 35 L 40-160 TIBC 470 204-475 IRON SATURATION(P) 7 L >15 UIBC(P) 435 H 126-382 Jul 07, 2021 11:03 [facility] PHOSPHORUS Specimen T ype: PLASMA AM Comment: Tests performed on Brito Rn Charge (405) SN:[id number] Ordering Provid er: BRENDA SANCHEZ Report Released Date/Time: May 20, 2021 10:59 AM Reporting Lab: [facility] [address] [address] Performing Lab: [facility] [address] [address] PHOSPHORUS 3.5 2.5-5.0 Jul 07, 2021 11:03 [facility] URIC ACID Specimen T ype: PLASMA AM Comment: Tests performed on Brit[employer] (405) SN:[id number] Ordering Provid er: BRENDA SANCHEZ Report Released Date/Time: May 20, 2021 10:59 AM Reporting Lab: [facility] [address] [address] Performing Lab: [facility] [address] [address] URIC ACID 8.9 H 3.3-8.7 Jul 07, 2021 11:03 [facility] ALBUMIN Specimen T ype: PLASMA AM Comment: Tests performed on Brit[employer]ormed[employer] (405) SN:[id number] Ordering Provid er: BRENDA SANCHEZ Report Released Date/Time: May 20, 2021 10:59 AM Reporting [facility]: [facility] [address] [address] Performing Lab: [facility] [address] [address] ALBUMIN 3.2 3.2-5.0 Jul 07, 2021 [place] [address] GLU,BUN,CREAT,LYTES,CA Speci men Type: PLASMA 11:03 AM CLINIC Comment: Tests performed on Brito [employer]ormed[employer] (405) SN:[id number] Ordering Provid er: BRENDA SANCHEZ Report Released Date/Time: May 20, 2021 10:59 AM Reporting Lab: [facility] [address] [address] Performing Lab: [facility] [address] [address] UREA NITROGEN 17 7-25 SODIUM 131 L 135-145 POTASSIUM 3.9 3.5-5.0 CHLORIDE 97 L 100-110 CARBON DIOXIDE 20 20-30 ANION GAP 14 4-16 GLUCOSE 128 H 65-100 CREATININE 1.21 0.5-1.5 CALCIUM 8.3 L 8.5-10.5 eGFR(CKD-EPI 2020) 63 >60 Jul 07, 2021 [facility] VIT D 25-OH([facility]) Specimen Typ e: SERUM 11:03 AM Comment: Tests performed on Brito Rn Charge (405) SN:[id number] Ordering Provid er: BRENDA SANCHEZ Report Released Date/Time: May 20, 2021 10:59 AM Reporting Lab: [facility] [address] [address] Performing Lab: [facility] [address] [address] VIT D 25-OH(J) 17.6 L 20-50 Jul 07, 2021 [facility] PTH-INTACT([facility]) Specimen Type : SERUM 11:03 AM Comment: Tests performed on Brito Telormed[employer] (405) SN:[id number] Ordering Provid er: BRENDA SANCHEZ Report Released Date/Time: May 20, 2021 10:59 AM Reporting Lab: [facility] [address] [address] Performing Lab: [facility] [address] [address] PTH-INTACT(J) 319.0 H 8.7-77.1 Jul 07, 2021 11:03 [facility] CBC PROFILE Specimen T ype: BLOOD AM No comment enter ed. Ordering Provid er: BRENDA SANCHEZ Report Released Date/Time: May 20, 2021 10:59 AM Reporting Lab: [facility] [address] [address] Performing Lab: [facility] [address] [address] WBC 16.2 H 4.5-11.0 RBC 5.29 4.23-5.66 [...] AM CLINIC PANEL Comment: Tests performed on RealD (405) SN:[id number] Ordering Provid er: BRENDA SANCHEZ Report Released Date/Time: May 20, 2021 10:59 AM Reporting Lab: [facility] [address] [address] Per[facility]: [facility] [address] [address] CREATININE (URINE,RANDOM) 48.4 MICROALBUMIN, QUANTITATIVE 3.6 0.0 -29.9 MICROALBUMIN/CREATININE RATIO 74.4 H 0.0-29.9 Jul 07, 2021 [facility] URINALYSIS W/REFLEX Specimen Type: URINE 11:03 AM TO CULTURE No comment enter ed. Ordering Provid er: BRENDA SANCHEZ Report Released Date/Time: May 20, 2021 10:59 AM Reporting Lab: [facility] [address] [address] Performing Lab: [facility] [address] [address] URINE COLOR Yellow YELLOW SPECIFIC GRAVITY 1.008 [...] smoking and tobacco-related health factors from the OR facility where the Encounter took place.Current Smoking Status This section includes the most current smoking, or tobacco-related health factor, from the OR facility where the Encounter took place. Date/Time Current Smoking Comment Facility Status Dec 19, 2017 11:42 AM QUIT TOBACCO USE > 7 [place] YEARS AGO Former user of tobacco products quit 27 yrs ago [facility] Tobacco Use History This section includes a history of the smoking, or tobacco- related health factors, that were collected on or before the date of the Encounter. The data comes from the OR facility where the Encounter took place. Date/Time Smoking Status/Tobacco Use Comment [facility] Oct 26, 2016 09:17 AM QUIT TOBACCO USE > 7 YEARS [place] AGO [facility] Jan 07, 2016 09:58 AM QUIT TOBACCO USE > 7 YEARS [place] AGO [facility] September 09, 2008 10:31 AM QUIT TOBACCO USE > 7 YEARS [place] AGO 8 yrs. [facility] August 29, 2007 08:57 AM QUIT TOBACCO USE 1-7 YEARS [place] AGO [facility] Feb 22, 2007 11:44 AM QUIT TOBACCO USE IN PAST [place] YEAR [facility] August 28, 2006 12:57 PM QUIT TOBACCO USE 1-7 YEARS [place] AGO 5 yrs. ago [facility] August 22, 2005 10:55 AM QUIT TOBACCO USE 1-7 YEARS [place] AGO quit 4 yr ago [facility] August 27, 2004 01:30 PM HISTORY OF SMOKING [place] 12/25 [facility] August 27, 2004 01:30 PM QUIT TOBACCO USE IN PAST [place] YEAR 2 years [facility] Dec 19, 2003 01:13 PM QUIT TOBACCO USE IN [place]ST [place] YE[place] [facility] September 05, 2003 02:45 PM HISTORY OF SMOKING DM [place] quit 12/25 [facility] September 05, 2003 02:45 PM QUIT TOBACCO USE IN PAST [place] YEAR quit 12/26 [facility] Mar 27, 2002 11:07 AM CURRENT SMOKER [place] Pt. smokes 1 ppd. [facility] Mar 14, 2001 03:27 PM CURRENT SMOKER DM [place] [facility] Advance Directives: All historical and current Section Date Range: From patient's date of to the date document was created. This section includes ALL of a patient's completed or amended OR Advance and Rescinded Directives. The entries below indicate that a directive exists for the patient, but an actual copy is not included with this document. The data comes from all OR facilities. Date Advance Directives Provider Source Apr 06, 2010 ADVANCE DIRECTIVE SVETLANA FRANK [address] [facility] Encounter Notes: All associated encounter notes This section contains the clinical notes associated to the Encounter. Date/Time Encounter Note(s) Provider Source Jul 13, 2021 11:13 AM TELEPHONE ENCOUNTER NOTE: DONNA BARRIENTOS LOCAL TITLE: VISN 1 [facility] MED RENEWAL [facility] STANDARD TITLE: TELEPHONE ENCOUNTER NOTE DATE OF NOTE: JUL 13, 2021@11:13:04 ENTRY DATE: JUL 13, 2021@11:16:02 AUTHOR: DONNA BARRIENTOS EXP COSIGNER: URGENCY: STATUS: COMPLETED VISN 1 CCC MED RENEWAL Has ADDENDA Type of call: PHARMACY. Caller Response: ADM CALL RESOLVED The patient, RUPERT SERNA ([id number]) Iman ne: [phone] called the call center. Comments: Renew and mail Folic Acid. Also, he is out aceta minophen because he was told to increase it a while a go due to some problem. He is taking it regularly now though. Please mail out a pa rtial rx david to hold him over til his next regular shipment arrives. Evaluation/Management Code: HC PRO PHONE CALL 5- 10 MIN ([id number]). Starting at: 07/13/2021 @ 11:13:04 AM Ending at: 07/13/2021 @ 11:14:43 AM Length: 1 minutes. Author: DONNA BARRIENTOS Caller Area: [facility] The following identifiers were used to verify th is patient: SSN. Chief Complaint: Not applicable to call. Class Code: Other specified counseling. Contact Patient's Email Address: /es/ DONNA GOMEZ [address] [facility] Signed: 07/13/2021 11:16 Receipt Acknowledged By: 07/13/2021 11:58 /es/ VIVIANA SANCHEZ MD Staff Physician 07/13/2021 14:25 /almaz/ MATTHEW TIRADO LPN 07/13/2021 ADDENDUM STATUS: COMPLETED to renew folic acid as appropriate. /almaz/ MATTHEW TIRADO LPN Signed: 07/13/2021 14:26
--- OUTSIDE RECORDS SUMMARY | 2021-12-31 13:01 | XMS_ITS | Encounter Summary ---
:1945 Author Organization [facility] Address [address] [place] [address] Support Name Relationship Address Phone CATHERINE SERNA Unavailable [address] [place] [address] COLEMAN, DAUGHTER Unavailable Unavailable Insurance Providers: All [...] MEDICARE MEDICARE PART Oct 22, PART A [id number] DAVIGN ON, PATIENT (WNR) (M) A 2011 UP35 1 RUPERT MEDICARE MEDICARE PART Oct 22, PART A [id number] WILIAMIGN ON, PATIENT (WNR) (M) A 2011 [id number] RUPERT Selected Encounter This section includes the information on record at OR for the Encounter. Date/Time Encounter Type Encounter Description Reason Provider Source Jun 29, 2021 09:18 Outpatient Encounter TELEPHONE TRIAGE AM IHE Encounter [...] 07, 2021 11:00 AM AMBULATORY - MEDICINE [facility] Jul 08, 2021 02:00 PM AMBULATORY - MEDICINE [facility] Jul 13, 2021 11:00 [facility] Aug 10, 2021 11:00 [facility] Aug 12, 2021 01:00 [facility] September 10, 2021 11:25 AM AMBULATORY - MEDICINE [facility] September 16, 2021 01:30 [facility] Oct 21, 2021 10:30 [facility] Oct 21[facility] 2021 11:00 [facility] Oct 26, 2021 11:00 [facility] Dec 23, 2021 02:04 [facility] Dec 24, 2021 01:[facility] Dec 28, 2021 02:30 PM AMBULATORY - MEDICINE [facility] Dec 28, 2021 02:31 PM AMBULATORY - NONE [facility] Lab Results: +/- 30 days of the encounter This section includes the Chemistry and Hematology Lab Results on record with OR for the patient. Radiology Reports and Pathology Reports are provided separately, in subsequent sections.Lab Results This section contains the Chemistry/Hematology Results that were resulted 30 days before or 30 daysafter the date of the Encounter. Date/Time Source Result Type Result - Unit Interpretation Reference Range Comment Jul 13, 2021 [facility] P4 GLU,BUN,CREAT,LYTES,CA Speci men Type: PLASMA 12:28 PM CLINIC Comment: Tests performed on [employer] (405) SN:[id number] Ordering Provid er: BRENDA SANCHEZ Report Released Date/Time: Jul 13, 2021 12:21 PM Reporting Lab: [facility] [address] [address] Performing Lab: [facility] [address] [address] UREA NITROGEN 14 7-25 SODIUM 138 135-145 POTASSIUM 4.1 3.5-5.0 CHLORIDE 103 100-110 CARBON DIOXIDE 23 20-30 ANION GAP 12 4-16 GLUCOSE 97 65-100 CREATININE 1.10 0.5-1.5 CALCIUM 8.6 8.5-10.5 eGFR(CKD-EPI 2020) 70 >60 Jul 13, 2021 12:28 [facility] CBC PROFILE Specimen T ype: BLOOD PM No comment enter ed. Ordering Provid er: BRENDA SANCHEZ Report Released Date/Time: Jul 13, 2021 12:20 PM Reporting Lab: [facility] [address] [address] Performing Lab: [facility] [address] [address] WBC 8.8 4.5-11.0 RBC 5.25 4.23-5.66 HGB [...] ABSOLUTE NRBC 0.00 0-0 Jul 07, 2021 [facility] GLYCOHEMOGLOBIN (A1C Specimen T ype: BLOOD 11:03 AM CLINIC ONLY) Comment: Tests performed on [employer] (212) SN:[id number] Ordering Provid er: BRENDA SANCHEZ Report Released Date/Time: May 20, 2021 10:59 AM Reporting Lab: [facility] [address] [address] Performing Lab: [facility] [address] [address] HEMOGLOBIN A1C 6.1 H 4.0-5.6 Jul 07, 2021 [facility] IRON+TIBC(P) Specimen Type : PLASMA 11:03 AM Comment: Tests performed on [employer] (405) SN:[id number] Ordering Provid er: BRENDA SANCHEZ Report Released Date/Time: May 20, 2021 10:59 AM Reporting Lab: [facility] [address] [address] Performing Lab: [place] [facility] [address] [address] IRON 35 L 40-160 TIBC 470 204-475 IRON SATURATION(P) 7 L >15 UIBC(P) 435 H 126-382 Jul 07, 2021 11:03 [facility] FERRITIN Specimen T ype: SERUM AM Comment: Tests performed on [email or web address] (405) SN:[id number] Ordering Provid er: BRENDA SANCHEZ Report Released Date/Time: May 20, 2021 10:59 AM Reporting Lab: [facility] [address] [address] Performing Lab: [facility] [address] [address] FERRITIN 21.5 20-300 Jul 07, 2021 11:03 [facility] PHOSPHORUS Specimen T ype: PLASMA AM Comment: Tests performed on [email or web address] (405) SN:[id number] Ordering Provid er: BRENDA SANCHEZ Report Released Date/Time: May 20, 2021 10:59 AM Reporting Lab: [facility] [address] [address] Performing Lab: [place] [facility] [address] [address] PHOSPHORUS 3.5 2.5-5.0 Jul 07, 2021 11:03 [facility] ALBUMIN Specimen T ype: PLASMA AM Comment: Tests performed on [employer] (405) SN:[id number] Ordering Provid er: BRENDA SANCHEZ Report Released Date/Time: May 20, 2021 10:59 AM Reporting Lab: [place] [facility] [address] [address] Performing Lab: [place] [facility] [address] [address] ALBUMIN 3.2 3.2-5.0 Jul 07, 2021 11:03 [facility] URIC ACID Specimen T ype: PLASMA AM Comment: Tests performed on [employer] (405) SN:[id number] Ordering Provid er: BRENDA SANCHEZ Report Released Date/Time: May 20, 2021 10:59 AM Reporting Lab: [facility] [address] [address] Performing Lab: [facility] [address] [address] URIC ACID 8.9 H 3.3-8.7 Jul 07, 2021 [facility] VIT D 25-OH([facility]) Specimen Typ e: SERUM 11:03 AM Comment: Tests performed on [email or web address] (405) SN:[id number] Ordering Provid er: BRENDA SANCHEZ Report Released Date/Time: May 20, 2021 10:59 AM Reporting Lab: [facility] [address] [address] Performing Lab: [facility] [address] [address] VIT D 25-OH([facility]) 17.6 L 20-50 Jul 07, 2021 [place] [address] GLU,BUN,CREAT,LYTES,CA Speci men Type: PLASMA 11:03 AM CLINIC Comment: Tests performed on [employer] (405) SN:[id number] Ordering Provid er: BRENDA SANCHEZ Report Released Date/Time: May 20, 2021 10:59 AM Reporting Lab: [facility] [address] [address] Performing Lab: [facility] [address] [address] UREA NITROGEN 17 7-25 SODIUM 131 L 135-145 POTASSIUM 3.9 3.5-5.0 CHLORIDE 97 L 100-110 CARBON DIOXIDE 20 20-30 ANION GAP 14 4-16 GLUCOSE 128 H 65-100 CREATININE 1.21 0.5-1.5 CALCIUM 8.3 L 8.5-10.5 eGFR(CKD-EPI 2020) 63 >60 Jul 07, 2021 [facility] PTH-INTACT([facility]) Specimen Type : SERUM 11:03 AM Comment: Tests performed on [employer] (405) SN:[id number] Ordering Provid er: BRENDA SANCHEZ Report Released Date/Time: May 20, 2021 10:59 AM Reporting Lab: [facility] [address] [address] Performing Lab: [facility] [address] [address] PTH-INTACT([facility]) 319.0 H 8.7-77.1 Jul 07, 2021 11:03 [facility] CBC PROFILE Specimen T ype: BLOOD AM No comment enter ed. Ordering Provid er: BRENDA SANCHEZ Report Released Date/Time: May 20, 2021 10:59 AM Reporting Lab: [facility] [address] [address] Performing Lab: [facility] [address] [address] WBC 16.2 H 4.5-11.0 RBC 5.29 4.23-5.66 [...] ABSOLUTE NRBC 0.00 0-0 Jul 07, 2021 [facility] MICROALBUMIN/CREATININE RATIO S pecimen Type: URINE 11:03 AM CLINIC PANEL Comment: Tests performed on [employer] (405) SN:[id number] Ordering Provid er: BRENDA SANCHEZ Report Released Date/Time: May 20, 2021 10:59 AM Reporting Lab: [facility] [address] [address] Performing Lab: [facility] [address] [address] CREATININE (URINE,RANDOM) 48.4 MICROALBUMIN, QUANTITATIVE 3.6 0.0 -29.9 MICROALBUMIN/CREATININE RATIO 74.4 H 0.0-29.9 Jul 07, 2021 [facility] URINALYSIS W/REFLEX Specimen Type: URINE 11:03 AM TO CULTURE No comment enter ed. Ordering Provid er: BRENDA SANCHEZ Report Released Date/Time: May 20, 2021 10:59 AM Reporting Lab: [facility] [address] [address] Performing Lab: [facility] [address] [address] URINE COLOR Yellow YELLOW SPECIFIC GRAVITY 1.008 [...] 11:42 AM QUIT TOBACCO USE > 7 [facility] YE[facility] AGO Former user of tobacco products quit 27 yrs ago [facility] Tobacco Use History This section includes a history of the smoking, or tobacco- related health factors, that were collected on or before the date of the Encounter. The data comes from the OR facility where the Encounter took place. Date/Time Smoking Status/Tobacco Use Comment Facil bustery Oct 26, 2016 09:17 AM QUIT TOBACCO USE > 7 YEARS [place] AGO [facility] Jan 07, 2016 09:58 AM QUIT TOBACCO USE > 7 YEARS [place] A[place] [facility] September 09, 2008 10:31 AM QUIT TOBACCO USE > 7 YEARS [place] AGO 8 yrs. [facility] August 29, 2007 08:57 AM QUIT TOBACCO USE 1-7 YEARS [place] A[place] [facility] Feb 22, 2007 11:44 AM QUIT TOBACCO USE IN PAST [place] YEAR [facility] August 28, 2006 12:57 PM QUIT TOBACCO USE 1-7 YEARS [place] AGO 5 yrs. ago [facility] August 22, 2005 10:55 AM QUIT TOBACCO USE 1-7 YEARS [place] AGO quit 4 yr ago [facility] August 27, 2004 01:30 PM HISTORY OF SMOKING [place] 12/25 [facility] August 27, 2004 01:30 PM QUIT TOBACCO USE IN [place]ST [place] YEAR 2 years [facility] Dec 19, 2003 01:13 PM QUIT TOBACCO USE IN [place]ST [place] [facility] September 05, 2003 02:45 PM HISTORY OF SMOKING [place] quit 12/25 [facility] September 05, 2003 02:45 PM QUIT TOBACCO USE IN PAST [place] YEAR quit 12/26 [facility] Mar 27, 2002 11:07 AM CURRENT SMOKER [place] Pt. smokes 1 ppd. [facility] Mar 14, 2001 03:27 PM CURRENT SMOKER [place] [facility] Advance Directives: All historical and [...] 2010 ADVANCE DIRECTIVE SVETLANA FRANK J [place] [facility] Encounter Notes: All associated encounter notes This section contains the clinical notes associated to the Encounter. Date/Time Encounter Note(s) Provider Source Jun 29, 2021 09:18 AM PRIMARY CARE MEDICATION MGT NOTE: TONY HENRY [facility] LOCAL TITLE: Medication Note STANDARD TITLE: PRIMARY CARE MEDICATION MGT NOTE DATE OF NOTE: JUN 29, 2021@09:18 ENTRY DATE: JUN 29, 2021@09:18:28 AUTHOR: TONY SANCHEZ EXP COSIGNER: URGENCY: STATUS: COMPLETED Medication Note Has ADDENDA 's is contacting clinic - reports th ey have been trying to get prednisone refilled - reports is in pain # [phone] /almaz/ TONY SANCHEZ AMSA Signed: 06/29/2021 09:21 Receipt Acknowledged By: 06/29/2021 09:34 /es/ VIVIANA SANCHEZ MD Staff Physician 06/29/2021 09:37 /es/ SARAH DUPONT REGISTERED NURSE 06/29/2021 09:41 /es/ CHARMAINE DIANA 06/29/2021 ADDENDUM STATUS: COMPLETED I called patient's . Still have not gotten p rednisone. I sending to local pharmacy with voucher. /almaz/ VIVIANA SANCHEZ MD Staff Physician Signed: 06/29/2021 09:37
--- OUTSIDE RECORDS SUMMARY | 2021-12-31 13:01 | XMS_ITS | Encounter Summary ---
:1945 Author Organization [facility] Address [address] [place] [id number] Support Name Relationship Address Phone CATHERINE SERNA Unavailable [address] [phone] [place] [address] COLEMAN, DAUGHTER Unavailable Unavailable Insurance Providers: All [...] MEDICARE MEDICARE PART Oct 22, PART A [id number] WILIAMIGN ON, PATIENT (WNR) (M) A 2011 [id number] 1 RUPERT MEDICARE MEDICARE PART Oct 22, PART A [id number] [phone] KATIE ON, PATIENT (WNR) (M) A 2011 [id number] RUPERT Selected Encounter This section includes the information on record at [place] for the Encounter. Date/Time Encounter Type Encounter Description Reason Provider Source Jul 13, 2021 11:00 Outpatient Encounter PRIMARY CARE/MEDICINE AM E Encounter Template Text not used by [place] Plan of Treatment: Future Appointments (+ 6 months) and Future Tests (+/- 45 days) The Plan of Treatment section includes future care activities for the patient from all [place] treatmentfacilities. This section includes future appointments and future orders which are active, pending orscheduled.Future Appointments This section includes appointments that were scheduled to occur 6 months from the date of the Encounter, up to a maximum of 20 appointments. The data comes from all [place] treatment facilities. Appointment Date/Time Appointment Type Appointment Facili ty Name Aug 10, 2021 11:00 AM AMBULATORY - MEDICINE [facility] Aug 12, 2021 01:00 PM AMBULATORY - MEDICINE [facility] September 10, 2021 11:25 AM AMBULATORY - MEDICINE [facility] September 16, 2021 01:30 [facility] Oct 21, 2021 10:30 AM [facility]UL[facility] - MEDICINE [facility] Oct 21, 2021 11:00 [facility] Oct 26, 2021 11:00 [facility] Dec 23, 2021 02:04 [facility] Dec 24, 2021 01:00 [facility] Dec 28, 2021 02:30 PM AM[facility]ULATORY - MEDICINE [facility] Dec 28, 2021 02:31 PM AMBULATORY - NONE [facility] Lab Results: +/- 30 days of the encounter This section includes the Chemistry and Hematology Lab Results on record with [place] for the patient. Radiology Reports and Pathology Reports are provided separately, in subsequent sections.Lab Results This section contains the Chemistry/Hematology Results that were resulted 30 days before or 30 daysafter the date of the Encounter. Date/Time Source Result Type Result - Unit Interpretation Reference Range Comment Aug 10, 2021 10:43 [facility] URIC ACID Specimen T ype: PLASMA AM Comment: Tests performed on Brito Kunlun (405) SN:[id number] Ordering Provid er: BRENDA SANCHEZ Report Released Date/Time: Aug 10, 2021 10:39 AM Reporting Lab: [facility] [address] [facility] [address] Performing Lab: [facility] [address] [facility] [address] URIC ACID 7.9 3.3-8.7 Aug 10, 2021 [facility] P4 GLU,BUN,CREAT,LYTES,CA Speci men Type: PLASMA 10:43 AM CLINIC Comment: Tests performed on Brito Kunlun (405) SN:[id number] Ordering Provid er: BRENDA SANCHEZ Report Released Date/Time: Aug 10, 2021 10:39 AM Reporting Lab: [facility] [address] [facility] [address] Performing [facility]: [facility] [address] [facility] [address] UREA NITROGEN 14 7-25 SODIUM 140 135-145 POTASSIUM 3.8 3.5-5.0 CHLORIDE 105 100-110 CARBON DIOXIDE 24 20-30 ANION GAP 11 4-16 GLUCOSE 101 H 65-100 CREATININE 1.14 0.5-1.5 CALCIUM 8.3 L 8.5-10.5 eGFR(CKD-EPI 2020) 67 >60 Jul 13, 2021 [facility] P4 GLU,BUN,CREAT,LYTES,CA Speci men Type: PLASMA 12:28 PM CLINIC Comment: Tests performed on Boedo (405) SN:[id number] Ordering Provid er: BRENDA SANCHEZ Report Released Date/Time: Jul 13, 2021 12:21 PM Reporting Lab: [facility] [address] [facility] [address] Performing Lab: [facility] [address] [facility] [address] UREA NITROGEN 14 7-25 SODIUM 138 135-145 POTASSIUM 4.1 3.5-5.0 CHLORIDE 103 100-110 CARBON DIOXIDE 23 20-30 ANION GAP 12 4-16 GLUCOSE 97 65-100 CREATININE 1.10 0.5-1.5 CALCIUM 8.6 8.5-10.5 eGFR(CKD-EPI 2020) 70 >60 Jul 13, 2021 12:28 [facility] CBC PROFILE Specimen T ype: BLOOD PM No comment enter ed. Ordering Provid er: BRENDA SANCHEZ Report Released Date/Time: Jul 13, 2021 12:20 PM Reporting Lab: [facility] [address] [facility] [address] Performing Lab: [facility] [address] [facility] [address] WBC 8.8 4.5-11.0 RBC 5.25 4.23-5.66 HGB [...] ABSOLUTE NRBC 0.00 0-0 Jul 07, 2021 [facility] GLYCOHEMOGLOBIN (A1C Specimen T ype: BLOOD 11:03 AM CLINIC ONLY) Comment: Tests performed on Brito Kunlun (405) SN:[id number] Ordering Provid er: BRENDA SANCHEZ Report Released Date/Time: May 20, 2021 10:59 AM Reporting Lab: [facility] [address] [facility] [address] Performing Lab: [facility] [address] [facility] [address] HEMOGLOBIN A1C 6.1 H 4.0-5.6 Jul 07, 2021 [facility] IRON+TIBC(P) Specimen Type : PLASMA 11:03 AM Comment: Tests performed on Brito Kunlun (405) SN:[id number] Ordering Provid er: BRENDA SANCHEZ Report Released Date/Time: May 20, 2021 10:59 AM Reporting Lab: [facility] [address] [facility] [address] Performing Lab: [facility] [address] [facility] [address] IRON 35 L 40-160 TIBC 470 204-475 IRON SATURATION(P) 7 L >15 UIBC(P) 435 H 126-382 Jul 07, 2021 11:03 [facility] PHOSPHORUS Specimen T ype: PLASMA AM Comment: Tests performed on Brito Kunlun (405) SN:[id number] Ordering Provid er: BRENDA SANCHEZ Report Released Date/Time: May 20, 2021 10:59 AM Reporting Lab: [facility] [address] [place] [facility] [place] [place] [address] Performing Lab: [facility] [address] [place] [facility] [place] [address] PHOSPHORUS 3.5 2.5-5.0 Jul 07, 2021 11:03 [facility] FERRITIN Specimen T ype: SERUM AM Comment: Tests performed on Brito Hand Collator (405) SN:[id number] Ordering Provid er: BRENDA SANCHEZ Report Released Date/Time: May 20, 2021 10:59 AM Reporting Lab: [facility] [address] [facility] [address] Performing Lab: [facility] [address] [facility] [address] FERRITIN 21.5 20-300 Jul 07, 2021 11:03 [facility] URIC ACID Specimen T ype: PLASMA AM Comment: Tests performed on Brito Kunlun (405) SN:[id number] Ordering Provid er: BRENDA SANCHEZ Report Released Date/Time: May 20, 2021 10:59 AM Reporting Lab: [facility] [address] [facility] [address] Performing Lab: [facility] [address] [place] [facility] [place] [address] URIC ACID 8.9 H 3.3-8.7 Jul 07, 2021 11:03 [facility] ALBUMIN Specimen T ype: PLASMA AM Comment: Tests performed on Brito Kunlun (405) SN:[id number] Ordering Provid er: BRENDA SANCHEZ Report Released Date/Time: May 20, 2021 10:59 AM Reporting Lab: [facility] [address] [facility] [address] Performing Lab: [facility] [address] [facility] [address] ALBUMIN 3.2 3.2-5.0 Jul 07, 2021 [place] [address] GLU,BUN,CREAT,LYTES,CA Speci men Type: PLASMA 11:03 AM CLINIC Comment: Tests performed on Brito Hand Collator (405) SN:[id number] Ordering Provid er: BRENDA SANCHEZ Report Released Date/Time: May 20, 2021 10:59 AM Reporting Lab: [facility] [address] [facility] [address] Performing Lab: [facility] [address] [facility] [address] UREA NITROGEN 17 7-25 SODIUM 131 L 135-145 POTASSIUM 3.9 3.5-5.0 CHLORIDE 97 L 100-110 CARBON DIOXIDE 20 20-30 ANION GAP 14 4-16 GLUCOSE 128 H 65-100 CREATININE 1.21 0.5-1.5 CALCIUM 8.3 L 8.5-10.5 eGFR(CKD-EPI 2020) 63 >60 Jul 07, 2021 [facility] PTH-INTACT([facility]) Specimen Type : SERUM 11:03 AM Comment: Tests performed on Brit[employer] Hand Collator (405) SN:[id number] Ordering Provid er: BRENDA SANCHEZ Report Released Date/Time: May 20, 2021 10:59 AM Reporting Lab: [facility] [address] [facility] [address] Performing Lab: [facility] [address] [facility] [address] PTH-INTACT(J) 319.0 H 8.7-77.1 Jul 07, 2021 [facility] VIT D 25-OH([facility]) Specimen Typ e: SERUM 11:03 AM Comment: Tests performed on Brito Hand Collator (405) SN:[id number] Ordering Provid er: BRENDA SANCHEZ Report Released Date/Time: May 20, 2021 10:59 AM Reporting Lab: [facility] [address] [facility] [address] Performing Lab: [facility] [address] [facility] [address] VIT D 25-OH(J) 17.6 L 20-50 Jul 07, 2021 11:03 [facility] CBC PROFILE Specimen T ype: BLOOD AM No comment enter ed. Ordering Provid er: BRENDA SANCHEZ Report Released Date/Time: May 20, 2021 10:59 AM Reporting Lab: [facility] [address] [facility] [address] Performing Lab: [facility] [address] [facility] [address] WBC 16.2 H 4.5-11.0 RBC 5.29 4.23-5.66 [...] ABSOLUTE NRBC 0.00 0-0 Jul 07, 2021 [facility] MICROALBUMIN/CREATININE RATIO S pecimen Type: URINE 11:03 AM CLINIC PANEL Comment: Tests performed on Boedo (405) SN:[id number] Ordering Provid er: BRENDA SANCHEZ Report Released Date/Time: May 20, 2021 10:59 AM Reporting Lab: [facility] [address] [facility] [address] [facility]: [facility] [address] [facility] [address] CREATININE (URINE,RANDOM) 48.4 MICROALBUMIN, QUANTITATIVE 3.6 0.0 -29.9 MICROALBUMIN/CREATININE RATIO 74.4 H 0.0-29.9 Jul 07, 2021 [facility] URINALYSIS W/REFLEX Specimen Type: URINE 11:03 AM TO CULTURE No comment enter ed. Ordering Provid er: BRENDA SANCHEZ Report Released Date/Time: May 20, 2021 10:59 AM Reporting Lab: [facility] [address] [facility] [address] Performing Lab: [facility] [address] [facility] [address] URINE COLOR Yellow YELLOW SPECIFIC GRAVITY 1.008 1.003-1.030 UROBILINOGEN <2.0 <2.0 URINE BILIRUBIN NEG NEG URINE KETONES NEG NEG URINE GLUCOSE NEG NEG PROTEIN, URINE NEG NEG URINE PH 6.0 5-8 CLARITY CLEAR Clear URINE BLOOD NEG NEG NITRITE, URINE NEG NEG WBC SCREEN NEG NEG Vital Signs: All taken on the encounter date This section contains inpatient and outpatient Vital Signs collected on the date of the Encounter. Date/Time Temperature Pulse Blood Respiratory SP02 Pain Height Weight Eugenio dy Source Pressure Rate Mass Index Mar 22, 97.5 F 89 115/82 18 /min 96 % 5 211 lb 37 [place]ABANK 2021 11:09 /min mm[Hg] [facility] Social History: Smoking Status (Most current) and Tobacco Use (All prior to encounter date) This section includes the most current, and the historical, smoking and tobacco-related health factors from the [place] facility where the Encounter took place.Current Smoking Status This section includes the most current smoking, or tobacco-related health factor, from the [place] facility where the Encounter took place. Date/Time Current Smoking Status Comment [facility] [place] Nov 16, 2020 10:30 AM VA-TOBACCO FORMER USER [facility] Tobacco Use History This section includes a history of the smoking, or tobacco- related health factors, that were collected on or before the date of the Encounter. The data comes from the [place] facility where the Encounter took place. Date/Time Smoking Status/Tobacco Use Comment [facility] Nov 16, 2020 10:30 AM VA-TOBACCO QUIT 15 YRS OR MORE [facility] September 06, 2018 11:34 AM VA-TOBACCO FORMER USER [facility] September 06, 2018 11:34 AM [place] QU[place] 15 YRS OR MORE [facility] Advance Directives: All historical and current Section Date Range: From patient's date of to the date document was created. This section includes ALL of a patient's completed or amended [place] Advance and Rescinded Directives. The entries below indicate that a directive exists for the patient, but an actual copy is not included with this document. The data comes from all [place] facilities. Date Advance Directives Provider Source Apr 06, [address] [facility] Encounter Notes: All associated encounter notes This section contains the clinical notes associated to the Encounter. Date/Time Encounter Note(s) Provider Source Jul 16, 2021 04:12 PM PRIMARY CARE E & M NOTE: Karen SANCHEZ [facility] LOCAL TITLE: Amb Care Results/Follow-Up Note HI NE STANDARD TITLE: PRIMARY CARE E & M NOTE DATE OF NOTE: JUL 16, 2021@16:12 ENTRY DATE: JUL 16, 2021@16:13:06 AUTHOR: JOCELYN SANCHEZ EXP COSIGNER: URGENCY: STATUS: COMPLETED Called patient with his lab tset results - PLT n ow normal. Has low MCV but normal Hgb. Na normalized. Ca normalized . Allopurinol has not been mailed yet. I'm messaging pharmacy. /almaz/ VIVIANA SANCHEZ MD Staff Physician Signed: 07/16/2021 16:14 Jul 13, 2021 11:12 AM PRIMARY CARE ANNUAL EVALUATION NOTE: KAREN JOVEL [facility] LOCAL TITLE: Preventive Health Annual Review STANDARD TITLE: PRIMARY CARE ANNUAL EVALUATION N OTE DATE OF NOTE: JUL 13, 2021@11:12 ENTRY DATE: JUL 13, 2021@11:12:37 AUTHOR: KAREN ALMONTE EXP COSIGNER: URGENCY: STATUS: COMPLETED Pt here for f2f with PCP /almaz/ KAREN ALMONTE PARADI OPERATOR Signed: 07/13/2021 11:13
--- OUTSIDE RECORDS SUMMARY | 2021-12-31 13:01 | XMS_ITS | Encounter Summary ---
:1945 Author Organization [facility] Address [address] [place] [id number] Support Name Relationship Address Phone CATHERINE SERNA Unavailable [address] [place] [address] COLEMAN, DAUGHTER Unavailable Unavailable Insurance Providers: All [...] MEDICARE MEDICARE PART Oct 22, PART A [id number] DAVIGN ON, PATIENT (WNR) (M) A 2011 UP35 1 RUPERT MEDICARE MEDICARE PART Oct 22, PART A [id number] [phone] WILIAMIGN ON, PATIENT (WNR) (M) A 2011 [id number] RUPERT Selected Encounter This section includes the information on record at [place] for the Encounter. Date/Time Encounter Type Encounter Reason Provider Source Description Jun 26, 2021 HC PRO PHONE TELEPHONE TRIAGE ICD-10-CM Z71.89 Mayte WOODRUFF 11:24 AM CALL 11-20 MIN Other specified counseling with Provider Comments: Other specified counseling IHE Encounter Template Text not used by [place] Assessments - Encounter Diagnoses This section includes the primary and secondary diagnoses documented for the Encounter. Date/Time Primary/Secondary Diagnosis Name Provider Source Diagnosis Jun 26, 2021 PRIMARY Other specified BEAU WOODRUFF 11:24 AM counseling [facility] Plan of Treatment: Future Appointments (+ 6 [...] 20 appointments. The data comes from all [place] treatment facilities. Appointment Date/Time Appointment Type Appointment Facili ty Name Jul 07, 2021 11:00 AM AMBULATORY - MEDICINE [facility] Jul 08, 2021 02:00 PM AMBULATORY - MEDICINE [facility] Jul 13, 2021 11:00 AM AMBULATORY - MEDICINE [facility] Aug 10, 2021 11:00 AM AMBULATORY - MEDICINE [facility] Aug 12, 2021 01:00 PM AMBULATORY - MEDICINE [facility] September 10, 2021 11:25 [facility] September 16, 2021 01:30 PM AM[facility]UL[facility] - MEDICINE [facility] Oct 21, 2021 10:30 AM AMBULATORY - MEDICINE [facility] Oct 21, 2021 11:00 AM AMBULATORY - MEDICINE [facility] Oct 26, 2021 11:00 AM AMBULATORY - MEDICINE [facility] Dec 23, 2021 02:04 AM [facility] Dec 24, 2021 01:00 PM AMBULATORY - MEDICINE [facility] Lab Results: +/- 30 days of the encounter This section includes the Chemistry and Hematology Lab Results on record with [place] for the patient. Radiology Reports and Pathology Reports are provided separately, in subsequent sections.Lab Results This section contains the Chemistry/Hematology Results that were resulted 30 days before or 30 daysafter the date of the Encounter. Date/Time Source Result Type Result - Unit Interpretation Reference Range Comment Jul 13, 2021 [facility] P4 GLU,BUN,CREAT,LYTES,CA Speci men Type: PLASMA 12:28 PM CLINIC Comment: Tests performed on OvermediaCast (405) SN:[id number] Ordering Provid er: BRENDA SANCHEZ Report Released Date/Time: Jul 13, 2021 12:21 PM Reporting Lab: [facility] [address] [facility] [address] Performing Lab: [facility] [address] [facility] [address] UREA NITROGEN 14 7-25 SODIUM 138 135-145 POTASSIUM 4.1 3.5-5.0 CHLORIDE 103 100-110 CARBON DIOXIDE 23 20-30 ANION GAP 12 4-16 GLUCOSE 97 65-100 CREATININE 1.10 0.5-1.5 CALCIUM 8.6 8.5-10.5 eGFR(CKD-EPI 2020) 70 >60 Jul 13, 2021 12:28 [facility] CBC PROFILE Specimen T ype: BLOOD PM No comment enter ed. Ordering Provid er: BRENDA SANCHEZ Report Released Date/Time: Jul 13, 2021 12:20 PM Reporting [facility]: [facility] [address] [facility] [address] Performing Lab: [facility] [address] [facility] [address] WBC 8.8 4.5-11.0 RBC 5.25 4.23-5.66 HGB [...] ABSOLUTE NRBC 0.00 0-0 Jul 07, 2021 [facility] GLYCOHEMOGLOBIN (A1C Specimen T ype: BLOOD 11:03 AM CLINIC ONLY) Comment: Tests performed on OvermediaCast (405) SN:[id number] Ordering Provid er: BRENDA SANCHEZ Report Released Date/Time: May 20, 2021 10:59 AM Reporting Lab: [facility] [address] [facility] [address] Performing Lab: [facility] [address] [facility] [address] HEMOGLOBIN A1C 6.1 H 4.0-5.6 Jul 07, 2021 11:03 [facility] FERRITIN Specimen T ype: SERUM AM Comment: Tests performed on Brito Dyeing Machine Back Tender (405) SN:[id number] Ordering Provid er: BRENDA SANCHEZ Report Released Date/Time: May 20, 2021 10:59 AM Reporting Lab: [facility] [address] [facility] [address] Performing Lab: [facility] [address] [facility] [address] FERRITIN 21.5 20-300 Jul 07, 2021 [facility] IRON+TIBC(P) Specimen Type : PLASMA 11:03 AM Comment: Tests performed on Brito JibJab (405) SN:[id number] Ordering Provid er: BRENDA SANCHEZ Report Released Date/Time: May 20, 2021 10:59 AM Reporting Lab: [facility] [address] [facility] [address] Performing Lab: [facility] [address] [facility] [address] IRON 35 L 40-160 TIBC 470 204-475 IRON SATURATION(P) 7 L >15 UIBC(P) 435 H 126-382 Jul 07, 2021 11:03 [facility] PHOSPHORUS Specimen T ype: PLASMA AM Comment: Tests performed on Brito Dyeing Machine Back Tender (405) SN:[id number] Ordering Provid er: BRENDA SANCHEZ Report Released Date/Time: May 20, 2021 10:59 AM Reporting Lab: [facility] [address] [facility] [address] Performing Lab: [facility] [address] [facility] [address] PHOSPHORUS 3.5 2.5-5.0 Jul 07, 2021 11:03 [facility] URIC ACID Specimen T ype: PLASMA AM Comment: Tests performed on Brito Dyeing Machine Back Tender (405) SN:[id number] Ordering Provid er: BRENDA SANCHEZ Report Released Date/Time: May 20, 2021 10:59 AM Reporting Lab: [facility] [address] [facility] [address] Performing Lab: [facility] [address] [facility] [address] URIC ACID 8.9 H 3.3-8.7 Jul 07, 2021 11:03 [facility] ALBUMIN Specimen T ype: PLASMA AM Comment: Tests performed on Brito JibJab (405) SN:[id number] Ordering Provid er: BRENDA SANCHEZ Report Released Date/Time: May 20, 2021 10:59 AM Reporting Lab: [facility] [address] [facility] [address] Performing Lab: [facility] [address] [facility] [address] ALBUMIN 3.2 3.2-5.0 Jul 07, 2021 [facility] VIT D 25-[place]([facility]) Specimen Typ e: SERUM 11:03 AM Comment: Tests performed on Brito JibJab (405) SN:[id number] Ordering Provid er: BRENDA SANCHEZ Report Released Date/Time: May 20, 2021 10:59 AM Reporting Lab: [facility] [address] [facility] [address] Performing Lab[facility] [address] [facility] [address] VIT D 25-[place](J) 17.6 L 20-50 Jul 07, 2021 [facility] P4 GLU,BUN,CREAT,LYTES,CA Speci men Type: PLASMA 11:03 AM CLINIC Comment: Tests performed on Brito JibJab (405) SN:[id number] Ordering Provid er: BRENDA SANCHEZ Report Released Date/Time: May 20, 2021 10:59 AM Reporting Lab: [facility] [address] [facility] [address] Performing Lab: [facility] [address] [facility] [address] UREA NITROGEN 17 7-25 SODIUM 131 L 135-145 POTASSIUM 3.9 3.5-5.0 CHLORIDE 97 L 100-110 CARBON DIOXIDE 20 20-30 ANION GAP 14 4-16 GLUCOSE 128 H 65-100 CREATININE 1.21 0.5-1.5 CALCIUM 8.3 L 8.5-10.5 eGFR(CKD-EPI 2020) 63 >60 Jul 07, 2021 [facility] PTH-INTACT(WRJ) Specimen Type : SERUM 11:03 AM Comment: Tests performed on OvermediaCast (405) SN:[id number] Ordering Provid er: BRENDA SANCHEZ Report Released Date/Time: May 20, 2021 10:59 AM Reporting Lab: [facility] [address] [facility] [address] Performing Lab: [facility] [address] [facility] [address] PTH-INTACT(J) 319.0 H 8.7-77.1 Jul 07, 2021 11:03 [facility] CBC PROFILE Specimen T ype: BLOOD AM No comment enter ed. Ordering Provid er: BRENDA SANCHEZ Report Released Date/Time: May 20, 2021 10:59 AM Reporting Lab: [facility] [address] [facility] [address] Performing Lab: [facility] [address] [facility] [address] WBC 16.2 H 4.5-11.0 RBC 5.29 4.23-5.66 [...] ABSOLUTE NRBC 0.00 0-0 Jul 07, 2021 [facility] MICROALBUMIN/CREATININE RATIO S pecimen Type: URINE 11:03 AM CLINIC PANEL Comment: Tests performed on OvermediaCast (405) SN:[id number] Ordering Provid er: BRENDA SANCHEZ Report Released Date/Time: May 20, 2021 10:59 AM Reporting Lab: [facility] [address] [facility] [address] Performing Lab: [facility] [address] [facility] [address] CREATININE (URINE,RANDOM) 48.4 MICROALBUMIN, QUANTITATIVE 3.6 0.0 -29.9 MICROALBUMIN/CREATININE RATIO 74.4 H 0.0-29.9 Jul 07, 2021 [facility] URINALYSIS W/REFLEX Specimen Type: URINE 11:03 AM TO CULTURE No comment enter ed. Ordering Provid er: BRENDA SANCHEZ Report Released Date/Time: May 20, 2021 10:59 AM Reporting Lab: [facility] [address] [facility] [address] Performing Lab: [facility] [address] [facility] [address] URINE COLOR Yellow YELLOW SPECIFIC GRAVITY 1.008 [...] smoking and tobacco-related health factors from the [place] facility where the Encounter took place.Current Smoking Status This section includes the most current smoking, or tobacco-related health factor, from the [place] facility where the Encounter took place. Date/Time Current Smoking Comment Facility Status Dec 19, 2017 11:42 AM QUIT TOBACCO USE > 7 [place] YEARS AGO Former user of tobacco products quit 27 yrs ago [facility] Tobacco Use History This section includes a history of the smoking, or tobacco- related health factors, that were collected on or before the date of the Encounter. The data comes from the [place] facility where the Encounter took place. Date/Time Smoking Status/Tobacco Use Comment Facil ity Oct 26, 2016 09:17 AM QUIT TOBACCO USE > 7 [place] A[place] [facility] Jan 07, 2016 09:58 AM QUIT TOBACCO USE > 7 YEARS [place] AGO [facility] September 09, 2008 10:31 AM QUIT TOBACCO USE > 7 YEARS [place] AGO 8 yrs. [facility] August 29, 2007 08:57 AM QUIT TOBACCO USE 1-7 YEARS [place] A[place] [facility] Feb 22, 2007 11:44 AM QUIT TOBACCO USE IN PAST [place] YE[place] [facility] August 28, 2006 12:57 PM QUIT TOBACCO USE 1-7 YEARS [place] AGO 5 yrs. ago [facility] August 22, 2005 10:55 AM QUIT TOBACCO USE 1-7 [place] quit 4 yr ago [facility] August 27, 2004 01:30 PM HISTORY OF SMOKING [place] 12/25 [facility] August 27, 2004 01:30 PM QUIT TOBACCO USE IN PAST [place] YEAR 2 years [facility] Dec 19, 2003 01:13 PM QUIT TOBACCO USE IN [place]ST [place] YE[place] [facility] September 05, 2003 02:45 PM HISTORY OF SMOKING [place] quit 12/25 [facility] September 05, 2003 02:45 PM QUIT TOBACCO USE IN PAST [place] YEAR quit 12/26 [facility] Mar 27, 2002 11:07 AM CURRENT SMOKER [place] Pt. smokes 1 ppd. [facility] Mar 14, 2001 03:27 PM CURRENT [place]KER [place] [facility] Advance Directives: All historical and current Section Date Range: From patient's date of to the date document was created. This section includes ALL of a patient's completed or amended [place] Advance and Rescinded Directives. The entries below indicate that a directive exists for the patient, but an actual copy is not included with this document. The data comes from all [place] facilities. Date Advance Directives Provider Source Apr 06, 2010 ADVANCE DIRECTIVE SVETLANA FRANK [facility] Encounter Notes: All associated encounter notes This section contains the clinical notes associated to the Encounter. Date/Time Encounter Note(s) Provider Source Jun 26, 2021 11:24 AM TELEPHONE ENCOUNTER NOTE: BEAU WOODRUFF Christian LOCAL TITLE: [facility] 1 CLINICAL CONTACT CENTER [facility] STANDARD TITLE: TELEPHONE ENCOUNTER NOTE DATE OF NOTE: JUN 26, 2021@11:24:06 ENTRY DATE: JUN 26, 2021@11:54:45 AUTHOR: BEAU WOODRUFF EXP COSIGNER: URGENCY: STATUS: COMPLETED Type of call: PHARMACY. PCMM Provider Info: LOCAL - [facility] ([phone]) PACT: NEW PACT MD *JAX* (Focus: Primary Care Onl y) Primary Care Provider: CRISTIAN SANCHEZ PHONE:[phone] Accounting Clerk: SARAH DUPONT V PHONE:[phone] Clinical Associate: MATTHEW TIRADO PHONE:[phone] Dye Operator: OLIVER SAUCEDA Clinical POC: Accounting Clerk SARAH DUPONT V PHONE:[phone] Administrative POC: Dye Operator OLIVER SAUCEDA Caller Response: CLN CALL RESOLVED SPOUSE called in for KAREEMRUPERT PARRISH ([phone]) . Evaluation/Management Code: HC PRO PHONE CALL 11 -20 MIN ([id number]). Starting at: 06/26/2021 @ 11:24:06 AM Ending at: 06/26/2021 @ 11:41:56 AM Length: 17 minutes. Author: BEAU WOODRUFF Caller Area: * [place] Chief Complaint: Not applicable to call. Nurse Notes: Spouse called, to check on status of med, voiced frustration that Vet has not received his med in mail as instructed and ran c ompletely out. Advised CPRS note dated 06/24 states: It looks like only half of the prescription was sent. I sent the other half of the prescription, so the patient should have the full supply of prednisone (54 tablets at 5 mg). I tried calling patient x3 but could not get in touch with him. Could someone else try reaching out to patient later in day to let him know that the second half of his prednisone supply sh ould arrive in the next 1-2 days. Thank you in advance! Warm transferred to RADHA Zelaya for further assista gutierrez. Class Code: Other specified counseling. Contact Imported Information: Medications ACTIVE: PREDNISONE 5MG TAB Prescription #:[id number] Prescribing Physician: ANUEL ANGEL (RESIDENT PHYSIC) on 2021 08:44 Frequency/Dosage: tablets ORAL ud : Patient/Caller agrees with plan. Patient's Email Address: /almaz/ PAULA Raya, RN-BC VISN 2 [facility] RN Signed: 06/26/2021 11:54
--- OUTSIDE RECORDS SUMMARY | 2021-12-31 13:01 | XMS_ITS ---
:1945 Author Organization [facility] Address [address] [place] [address] Support Name Relationship Address Phone CATHERINE SERNA Unavailable [address] [place] [address] COLEMAN, DAUGHTER Unavailable Unavailable Insurance Providers: All [...] MEDICARE MEDICARE PART Oct 22, PART A [id number] DAVIGN ON, PATIENT (WNR) (M) A 2011 UP35 1 RUPERT MEDICARE MEDICARE PART Oct 22, PART A [id number] [phone] WILIAMIGN ON, PATIENT (WNR) (M) A 2011 [id number] RUPERT Selected Encounter This section includes the information on record at [facility] for the Encounter. 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 Date/Time Primary/Secondary Diagnosis Name Provider Source Diagnosis Jul 08, 2021 PRIMARY [facility] (current[facility] CRISTINO ALLEN IVER 02:00 PM use of L [facility] Jul 08, 2021 SECONDARY Unspecified atrial CRISTINO ALLEN RI GURPREET 02:00 PM fibrillation L [facility] Plan of Treatment: Future Appointments (+ 6 months) and Future Tests (+/- 45 days) The Plan of Treatment section includes future care activities for the patient from all [facility] treatmentfacilities. This section includes future appointments and future orders which are active, pending orscheduled.Future Appointments This section includes appointments that were scheduled to occur 6 months from the date of the Encounter, up to a maximum of 20 appointments. The data comes from all [facility] treatment facilities. Appointment Date/Time Appointment Type Appointment Facili ty Name Jul 13, 2021 11:00 AM [facility] Aug 10, 2021 11:00 AM [facility] Aug 12, 2021 01[facility]00 [facility] September 10, 2021 11:25 AM [facility]AT[facility] - MEDICINE [facility] September 16, 2021 01:30 PM [facility] Oct 21, 2021 10:30 AM [facility] - MEDICINE [facility] [place] Oct 21, 2021 11:00 AM [facility] Oct 26, 2021 11:00 AM [facility] Dec 23, 2021 02:04 AM AMBULATORY - MEDICINE [facility] Dec 24, 2021 01:00 PM [facility] Dec 28, 2021 02:30 PM AMBULATORY - MEDICINE [facility] Dec 28, 2021 02:31 PM AMBULATORY - NONE [facility] Lab Results: +/- 30 days of the encounter This section includes the Chemistry and Hematology Lab Results on record with [facility] for the patient. Radiology Reports and Pathology Reports are provided separately, in subsequent sections.Lab Results This section contains the Chemistry/Hematology Results that were resulted 30 days before or 30 daysafter the date of the Encounter. Date/Time Source Result Type Result - Unit Interpretation Reference Range Comment Jul 13, 2021 [facility] P4 GLU,BUN,CREAT,LYTES,CA Speci men Type: PLASMA 12:28 PM CLINIC Comment: Tests performed on Cennox 405 SN:[id number] Ordering Provid er: BRENDA SANCHEZ Report Released Date/Time: Jul 13, 2021 12:21 PM Reporting Lab: [facility] [address] [facility] [address] Performing Lab: [facility] [address] [facility] [address] UREA NITROGEN 14 7-25 SODIUM 138 135-145 POTASSIUM 4.1 3.5-5.0 CHLORIDE 103 100-110 CARBON DIOXIDE 23 20-30 ANION GAP 12 4-16 GLUCOSE 97 65-100 CREATININE 1.10 0.5-1.5 CALCIUM 8.6 8.5-10.5 eGFR(CKD-EPI 2020) 70 >60 Jul 13, 2021 12:28 [facility] CBC PROFILE Specimen T ype: BLOOD PM No comment enter ed. Ordering Provid er: BRENDA SANCHEZ Report Released Date/Time: Jul 13, 2021 12:20 PM Reporting Lab: [facility] [address] [facility] [address] Performing Lab: [facility] [address] [facility] [address] WBC 8.8 4.5-11.0 RBC 5.25 4.23-5.66 HGB [...] CLINIC ONLY) Comment: Tests performed on Brito Train Braker (405) SN:[id number] Ordering Provid er: BRENDA SANCHEZ Report Released Date/Time: May 20, 2021 10:59 AM Reporting Lab: [facility] [address] [facility] [address] Performing Lab: [facility] [address] [facility] [address] HEMOGLOBIN A1C 6.1 H 4.0-5.6 Jul 07, 2021 [facility] IRON+TIBC(P) Specimen Type : PLASMA 11:03 AM Comment: Tests performed on [employer] Train Braker (405) SN:[id number] Ordering Provid er: BRENDA SANCHEZ Report Released Date/Time: May 20, 2021 10:59 AM Reporting Lab: [facility] [address] [facility] [address] Performing Lab: [facility] [address] [facility] [address] IRON 35 L 40-160 TIBC 470 204-475 IRON SATURATION(P) 7 L >15 UIBC(P) 435 H 126-382 Jul 07, 2021 11:03 [facility] FERRITIN Specimen T ype: SERUM AM Comment: Tests performed on [employer] Train Braker (405) SN:[id number] Ordering Provid er: BRENDA SANCHEZ Report Released Date/Time: May 20, 2021 10:59 AM Reporting Lab: [place] [facility] [address] [facility] [address] Performing Lab: [facility] [address] [facility] [place] [address] FERRITIN 21.5 20-300 Jul 07, 2021 11:03 [facility] PHOSPHORUS Specimen T ype: PLASMA AM Comment: Tests performed on [employer] Braker (405) SN:[id number] Ordering Provid er: BRENDA SANCHEZ Report Released Date/Time: May 20, 2021 10:59 AM Reporting Lab: [place] [facility] [address] [facility] [address] Performing Lab: [facility] [place] [facility] [facility] [address] [facility] [address] PHOSPHORUS 3.5 2.5-5.0 Jul 07, 2021 11:03 [facility] URIC ACID Specimen T ype: PLASMA AM Comment: Tests performed on Brito Tristar (405) SN:[id number] Ordering Provid er: BRENDA SANCHEZ Report Released Date/Time: May 20, 2021 10:59 AM Reporting Lab: [facility] [address] [facility] [address] Performing Lab: [facility] [address] [facility] [address] URIC ACID 8.9 H 3.3-8.7 Jul 07, 2021 11:03 [facility] ALBUMIN Specimen T ype: PLASMA AM Comment: Tests performed on Brito Tristar (405) SN:[id number] Ordering Provid er: BRENDA SANCHEZ Report Released Date/Time: May 20, 2021 10:59 AM Reporting Lab: [facility] [address] [facility] [address] Performing Lab: [facility] [address] [facility] [address] ALBUMIN 3.2 3.2-5.0 Jul 07, 2021 [place] [address] GLU,BUN,CREAT,LYTES,CA Speci men Type: PLASMA 11:03 AM CLINIC Comment: Tests performed on Brito Tristar (405) SN:[id number] Ordering Provid er: BRENDA SANCHEZ Report Released Date/Time: May 20, 2021 10:59 AM Reporting Lab: [facility] [address] [facility] [address] Performing Lab: [facility] [address] [facility] [address] UREA NITROGEN 17 7-25 SODIUM 131 L 135-145 POTASSIUM 3.9 3.5-5.0 CHLORIDE 97 L 100-110 CARBON DIOXIDE 20 20-30 ANION GAP 14 4-16 GLUCOSE 128 H 65-100 CREATININE 1.21 0.5-1.5 CALCIUM 8.3 L 8.5-10.5 eGFR(CKD-EPI 2020) 63 >60 Jul 07, 2021 [facility] PTH-INTACT(WRJ) Specimen Type : SERUM 11:03 AM Comment: Tests performed on Brito Tristar (405) SN:[id number] Ordering Provid er: BRENDA SANCHEZ Report Released Date/Time: May 20, 2021 10:59 AM Reporting Lab: [facility] [address] [facility] [address] Performing Lab: [facility] [address] [facility] [address] PTH-INTACT([facility]) 319.0 H 8.7-77.1 Jul 07, 2021 11:03 [facility] CBC PROFILE Specimen T ype: BLOOD AM No comment enter ed. Ordering Provid er: BRENDA SACNHEZ Report Released Date/Time: May 20, 2021 10:59 AM Reporting Lab: [facility] [address] [facility] [address] Performing Lab: [facility] [address] [facility] [address] WBC 16.2 H 4.5-11.0 RBC 5.29 4.23-5.66 [...] ABSOLUTE NRBC 0.00 0-0 Jul 07, 2021 [facility] VIT D 25-OH([facility]) Specimen Typ e: SERUM 11:03 AM Comment: Tests performed on [employer] Braker (405) SN:[id number] Ordering Provid er: BRENDA SANCHEZ Report Released Date/Time: May 20, 2021 10:59 AM Reporting Lab: [facility] [address] [facility] [address] Performing Lab: [facility] [address] [facility] [address] VIT D 25-OH([facility]) 17.6 L 20-50 Jul 07, 2021 [facility] MICROALBUMIN/CREATININE RATIO S pecimen Type: URINE 11:03 AM CLINIC PANEL Comment: Tests performed on [employer] Train Braker (405) SN:[id number] Ordering Provid er: BRENDA SANCHEZ Report Released Date/Time: May 20, 2021 10:59 AM Reporting Lab: [facility] [address] [facility] [address] Performing [facility]: [facility] [address] [facility] [address] CREATININE (URINE,RANDOM) 48.4 MICROALBUMIN, QUANTITATIVE 3.6 0.0 -29.9 MICROALBUMIN/CREATININE RATIO 74.4 H 0.0-29.9 Jul 07, 2021 [facility] URINALYSIS W/REFLEX Specimen Type: URINE 11:03 AM TO CULTURE No comment enter ed. Ordering Provid er: BRENDA SANCHEZ Report Released Date/Time: May 20, 2021 10:59 AM Reporting Lab: [facility] [address] [facility] [address] Performing [facility]: [facility] [address] [facility] [address] URINE COLOR Yellow YELLOW SPECIFIC GRAVITY 1.008 [...] smoking and tobacco-related health factors from the [facility] facility where the Encounter took place.Current Smoking Status This section includes the most current smoking, or tobacco-related health factor, from the [facility] facility where the Encounter took place. Date/Time Current Smoking Comment Facility Status Dec 19, 2017 11:42 AM QUIT TOBACCO USE > 7 [place] YEARS AGO Former user of tobacco products quit 27 yrs ago [facility] Tobacco Use History This section includes a history of the smoking, or tobacco- related health factors, that were collected on or before the date of the Encounter. The data comes from the [facility] facility where the Encounter took place. Date/Time Smoking Status/Tobacco Use Comment Facil ity Oct 26, 2016 09:17 AM QUIT TOBACCO USE > 7 YEARS [place] AGO [facility] Jan 07, 2016 09:58 AM QUIT TOBACCO USE > 7 YEARS [place] AGO [facility] September 09, 2008 10:31 AM QUIT TOBACCO USE > 7 YEARS [place] AGO 8 yrs. [facility] August 29, 2007 08:57 AM QUIT TOBACCO USE 1-7 YEARS [place] AGO [facility] Feb 22, 2007 11:44 AM QUIT TOBACCO USE IN PAST [place] YEAR [facility] August 28, 2006 12:57 PM QUIT TOBACCO USE 1-7 YEARS [place] A[place] 5 yrs. ago [facility] August 22, 2005 10:55 AM QUIT TOBACCO USE 1-7 YEARS [place] A[place] quit 4 yr ago [facility] August 27, 2004 01:30 PM HISTORY OF SMOKING [place] 12/25 [facility] August 27, 2004 01:30 PM QUIT TOBACCO USE IN PAST [place] YEAR 2 years [facility] Dec 19, 2003 01:13 PM QUIT TOBACCO USE IN PAST [place] YEAR [facility] September 05, 2003 02:45 PM HISTORY OF SMOKING [place] quit 12/25 [facility] September 05, 2003 02:45 PM QUIT TOBACCO USE IN PAST [place] YEAR quit 12/26 [facility] Mar 27, 2002 11:07 AM CURRENT SMOKER [place] Pt. smokes 1 ppd. [facility] Mar 14, 2001 03:27 PM CURRENT SMOKER [place] [facility] Advance Directives: All historical and current Section Date Range: From patient's date of to the date document was created. This section includes ALL of a patient's completed or amended [facility] Advance and Rescinded Directives. The entries below indicate that a directive exists for the patient, but an actual copy is not included with this document. The data comes from all [facility] facilities. Date Advance Directives Provider Source Apr 06, 2010 ADVANCE DIRECTIVE SVETLANA FRANK DM COOK J [place] [facility] Encounter Notes: All associated encounter notes This section contains the clinical notes associated to the Encounter. 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 [facility] SERNA [address], [place] [address] Purpose of visit: Follow-up 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 clin ic visit Time spent with patient during this visit: 15 mi nutes Subjective/Objective information: Active Outpatient Medications (excluding Supplie s): Active Outpatient Medications Status 1) ACETAMINOPHEN 500MG TAB TAKE ONE TABLET BY MO UTH ACTIVE EVERY SIX HOURS NEEDED FOR PAIN 2) AMLODIPINE BESYLATE 10MG TAB TAKE ONE TABLET BY MOUTH ACTIVE EVERY DAY FOR BLOOD PRESSURE/HEART, DO NOT TAKE WITH GRAPEFRUIT JUICE 3) APIXABAN 5MG TAB TAKE ONE TABLET BY MOUTH JESSICA RY ACTIVE TWELVE HOURS TO HELP PREVENT BLOOD CLOTS (ANTICOAGULATION) 4) ASPIRIN 81MG EC TAB TAKE ONE TABLET BY MOUTH EVERY ACTIVE DAY TO PREVENT STROKE/HEART ATTACK OR FOR PAIN/SWELLING/INFLAMMATION 5) ATORVASTATIN CALCIUM 80MG TAB TAKE ONE TABLET BY ACTIVE MOUTH EVERY DAY TO LOWER CHOLESTEROL 6) COLCHICINE 0.6MG TAB TAKE ONE TABLET BY MOUTH EVERY ACTIVE DAY FOR GOUT 7) DICLOFENAC NA 1% TOP GEL APPLY 2 GRAMS TO UPP ER ACTIVE EXTREMITIES TOPICALLY FOUR TIMES DAILY NEEDE D FOR PAIN/INFLAMMATION. *DO NOT EXCEED 16 GRAMS DAILY TO ANY JOINT OF LOWER EXTREMITIES. DO NOT EXCEED 8 GRAMS DAILY TO ANY JOINT OF UPPER EXTREMITIES. DO NOT EXCEED TOTAL DOSE OF 32 GRA MS DAILY OVER ALL JOINTS. 8) FOLIC ACID 1MG TAB TAKE ONE TABLET BY MOUTH E VERY DAY ACTIVE VITAMIN/NUTRITION SUPPLEMENT 9) FUROSEMIDE 40MG TAB TAKE ONE TABLET BY MOUTH TWICE A ACTIVE DAY TO REMOVE FLUID/CONTROL BLOOD PRESSURE 10) ISOSORBIDE MONONITRATE 30MG SA TAB TAKE ONE TABLET BY ACTIVE MOUTH EVERY DAY TO PREVENT ANGINA 11) METOPROLOL SUCCINATE 200MG SA TAB TAKE ONE T ABLET BY ACTIVE MOUTH EVERY DAY FOR BLOOD PRESSURE/HEART 12) OMEPRAZOLE 20MG EC CAP TAKE ONE CAPSULE BY M OUTH ACTIVE TWICE A DAY FOR STOMACH ACID (TAKE HALF-HOUR BE FORE A MEAL(S) 13) POTASSIUM CHLORIDE 10MEQ SA TAB TAKE TWO TAB LETS BY ACTIVE MOUTH EVERY DAY TO SUPPLEMENT POTASSIUM 14) PREDNISONE 5MG TAB TAKE TABLETS BY MOUTH DIRECTED ACTIVE : TAKE EIGHT TABLETS BY MOUTH DAILY FOR 5 DAYS, THEN TAKE FOUR TABLETS DAILY FOR 2 DAYS, THEN T JOELLE TWO TABLETS DAILY FOR 2 DAYS, THEN TAKE ONE TAB LET DAILY FOR 2 DAYS Active Non-VA Medications Status 1) Non-VA CAPSAICIN 0.1% CREAM SMALL AMOUNT TOPI SHERWIN ACTIVE TWICE DAILY NEEDED 15 Total Medications [ X ] Medication reconciliation completed, any d ifferences are listed below: Factors affecting 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: Medication change none Alcohol change none Acute illness none Medication compliance denies missing doses Bleeding/thromboembolic complications: Bruising denies Gingival bleeding denies Nosebleeds denies Hematuria denies Blood in stools denies Signs of CVA/TIA denies LE swelling/pain denies Shortness of breath denies Other side effects: denies Falls/injuries denies Tests/Procedures none Other issues: in pain due to gout Indication: atrial fibrillation, s/p CVA Anticoagulation initiated: 11/2016 (VKA --> apix 11/2017) Anticoagulation education: 12/19/17 Expected duration of 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: long 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 Current DOAC Regimen: apixaban 5mg Q12hr (8am-8p m) Preferred Contact: Appointment preference: , 10-11am Lab Results: (CrCl calculation: Cockcroft-Gault and actual body weight) Date Hct Hgb Plt Creat Weight Calc CrCl AST ALT 09/06/18 40.6 11.8 370 1.60 99.79kg 59.8ml/min 02/06/19 39.8 11.6 355 1.42 89.81kg 59.7ml/min 08/01/19 40.2 12.0 319 1.21 89.81kg 70ml/min 05/07/20 42.4 13.0 389 1.24 84kg 12/17/20([place])38.2 12.1 288 1.5 12/23/20 40.4 12.5 355 1.24 90kg 42 31 07/07/21 41.2 12.1 695 1.21 90kg 68ml/min Assessment: [employer] is anticoagulated wi th apixaban w/o bleeding or thrombotic complication. H&H low but stable and SCr is WNL . Drug/dose appropriate for current renal function/age Plan: Continue current regimen DOAC Regimen: apixaban 5mg every 12 hours Future follow-up: Repeat CBC, SCr, AST/ALT in 12 months Patient Education: [X] s/sx bleeding/thrombosis and ER precautions [X] importance of correct dose/dosing schedule [X] importance of medication compliance [X] importance of reporting medication changes, planned procedures, change in health care statu s to clinic [X] TC to patient/spouse/caregiver who was able to verbalize understanding of above instructions. [ ] Voice mail left for patient with instruction s [ ] Written instructions mailed to patient [X] Rx ordered [ ] Rx/Lab orders faxed to: /almaz/ CRISTINO ALLEN Clinical Pharmacist Signed: 07/08/2021 14:37
--- OUTSIDE RECORDS SUMMARY | 2021-12-31 13:01 | XMS_ITS | Encounter Summary ---
:1945 Author Organization [facility] Address [address] [place] [address] Support Name Relationship Address Phone CATHERINE SERNA Unavailable [address] [phone] [place] [address] COLEMAN, DAUGHTER Unavailable Unavailable Insurance Providers: All [...] MEDICARE MEDICARE PART Oct 22, PART A [id number] DAVIGN ON, PATIENT (WNR) (M) A 2011 UP35 1 RUPERT MEDICARE MEDICARE PART Oct 22, PART A [id number] [phone] WILIAMIGN ON, PATIENT (WNR) (M) A 2011 [id number] 00 RUPERT Selected Encounter This section includes the information on record at [place] for the Encounter. Date/Time Encounter Type Encounter Description Reason Provider Source Jun 28, 2021 11:16 Outpatient Encounter TELEPHONE TRIAGE AM IHE Encounter Template Text not used by [place] Plan of Treatment: Future Appointments (+ 6 months) and Future Tests (+/- 45 days) The Plan of Treatment section includes future care activities for the patient from all [place] treatmentfacilities. This section includes future appointments and future orders which are active, pending orscheduled.Future Appointments This section includes appointments that were scheduled to occur 6 months from the date of the Encounter, up to a maximum of 20 appointments. The data comes from all [place] treatment facilities. Appointment Date/Time Appointment Type Appointment Facili ty Name Jul 07, 2021 11:00 AM AMBULATORY - MEDICINE [facility] Jul 08, 2021 02:00 PM AMBULATORY - MEDICINE [facility] Jul 13, 2021 11:00 [facility] Aug 10, 2021 11:00 [facility] Aug 12, 2021 01:00 PM [facility] September 10, 2021 11:25 AM AMBULATORY - MEDICINE [facility] September 16, 2021 01:30 PM [facility] Oct 21, 2021 10:30 AM [facility] Oct 21, 2021 11:00 [facility] Oct 26, 2021 11:00 AM [facility] Dec 23, 2021 02:04 AM [facility] Dec 24, 2021 01:00 [facility] Dec 28, 2021 02:30 PM AMBULATORY - MEDICINE [facility] Dec 28, 2021 02:31 PM AMBULATORY - NONE [facility] Lab Results: +/- 30 days of the encounter This section includes the Chemistry and Hematology Lab Results on record with [place] for the patient. Radiology Reports and Pathology Reports are provided separately, in subsequent sections.Lab Results This section contains the Chemistry/Hematology Results that were resulted 30 days before or 30 daysafter the date of the Encounter. Date/Time Source Result Type Result - Unit Interpretation Reference Range Comment Jul 13, 2021 [facility] P4 GLU,BUN,CREAT,LYTES,CA Speci men Type: PLASMA 12:28 PM CLINIC Comment: Tests performed on [employer]ht[employer] (405) SN:[id number] Ordering Provid er: BRENDA SANCHEZ Report Released Date/Time: Jul 13, 2021 12:21 PM Reporting Lab: [facility] [address] [facility] [address] Performing Lab: [facility] [address] [facility] [address] UREA NITROGEN 14 7-25 SODIUM 138 135-145 POTASSIUM 4.1 3.5-5.0 CHLORIDE 103 100-110 CARBON DIOXIDE 23 20-30 ANION GAP 12 4-16 GLUCOSE 97 65-100 CREATININE 1.10 0.5-1.5 CALCIUM 8.6 8.5-10.5 eGFR(CKD-EPI 2020) 70 >60 Jul 13, 2021 12:28 [facility] CBC PROFILE Specimen T ype: BLOOD PM No comment enter ed. Ordering Provid er: BRENDA SANCHEZ Report Released Date/Time: Jul 13, 2021 12:20 PM Reporting Lab: [facility] [address] [facility] [address] [facility]: [facility] [address] [facility] [address] WBC 8.8 4.5-11.0 RBC 5.25 4.23-5.66 HGB [...] ABSOLUTE NRBC 0.00 0-0 Jul 07, 2021 [facility] GLYCOHEMOGLOBIN (A1C Specimen T ype: BLOOD 11:03 AM CLINIC ONLY) Comment: Tests performed on [employer]ht[employer] (648) SN:[id number] Ordering Provid er: BRENDA SANCHEZ Report Released Date/Time: May 20, 2021 10:59 AM Reporting Lab: [facility] [address] [facility] [address] Performing Lab: [facility] [address] [facility] [address] HEMOGLOBIN A1C 6.1 H 4.0-5.6 Jul 07, 2021 [facility] IRON+TIBC(P) Specimen Type : PLASMA 11:03 AM Comment: Tests performed on [employer] (405) SN:[id number] Ordering Provid er: BRENDA SANCHEZ Report Released Date/Time: May 20, 2021 10:59 AM Reporting Lab: [facility] [address] [facility] [address] Performing Lab[facility] [address] [facility] [address] IRON 35 L 40-160 TIBC 470 204-475 IRON SATURATION(P) 7 L >15 UIBC(P) 435 H 126-382 Jul 07, 2021 11:03 [facility] FERRITIN Specimen T ype: SERUM AM Comment: Tests performed on [employer] (405) SN:[id number] Ordering Provid er: BRENDA SANCHEZ Report Released Date/Time: May 20, 2021 10:59 AM Reporting Lab: [facility] [address] [facility] [address] Performing [facility]: [facility] [address] [facility] [address] FERRITIN 21.5 20-300 Jul 07, 2021 11:03 [facility] URIC ACID Specimen T ype: PLASMA AM Comment: Tests performed on [employer] (405) SN:[id number] Ordering Provid er: BRENDA SANCHEZ Report Released Date/Time: May 20, 2021 10:59 AM Reporting Lab: [facility] [address] [facility] [address] Per[facility] [address] [facility] [address] URIC ACID 8.9 H 3.3-8.7 Jul 07, 2021 11:03 [facility] PHOSPHORUS Specimen T ype: PLASMA AM Comment: Tests performed on Phthisis [employer]ostics (405) SN:[id number] Ordering Provid er: BRENDA SANCHEZ Report Released Date/Time: May 20, 2021 10:59 AM Reporting Lab: [facility] [address] [facility] [address] Performing Lab: [place] [facility] [address] [facility] [address] PHOSPHORUS 3.5 2.5-5.0 Jul 07, 2021 11:03 [facility] ALBUMIN Specimen T ype: PLASMA AM Comment: Tests performed on [employer] (405) SN:[id number] Ordering Provid er: BRENDA SANCHEZ Report Released Date/Time: May 20, 2021 10:59 AM Reporting Lab: [facility] [address] [facility] [address] Performing Lab: [facility] [address] [facility] [address] ALBUMIN 3.2 3.2-5.0 Jul 07, 2021 [facility] VIT D 25-OH([facility]) Specimen Typ e: SERUM 11:03 AM Comment: Tests performed on [employer] (405) SN:[id number] Ordering Provid er: BRENDA SANCHEZ Report Released Date/Time: May 20, 2021 10:59 AM Reporting Lab: [facility] [address] [facility] [address] Performing Lab: [facility] [address] [facility] [address] VIT D 25-OH(J) 17.6 L 20-50 Jul 07, 2021 [facility] PTH-INTACT(J) Specimen Type : SERUM 11:03 AM Comment: Tests performed on [employer] (405) SN:[id number] Ordering Provid er: BRENDA SANCHEZ Report Released Date/Time: May 20, 2021 10:59 AM Reporting Lab: [facility] [address] [facility] [address] Performing Lab: [facility] [address] [facility] [address] PTH-INTACT(J) 319.0 H 8.7-77.1 Jul 07, 2021 [place] [address] GLU,BUN,CREAT,LYTES,CA Speci men Type: PLASMA 11:03 AM CLINIC Comment: Tests performed on [employer] (405) SN:[id number] Ordering Provid er: BRENDA SANCHEZ Report Released Date/Time: May 20, 2021 10:59 AM Reporting Lab: [facility] [address] [facility] [address] Performing Lab: [facility] [address] [facility] [address] UREA NITROGEN 17 7-25 SODIUM 131 L 135-145 POTASSIUM 3.9 3.5-5.0 CHLORIDE 97 L 100-110 CARBON DIOXIDE 20 20-30 ANION GAP 14 4-16 GLUCOSE 128 H 65-100 CREATININE 1.21 0.5-1.5 CALCIUM 8.3 L 8.5-10.5 eGFR(CKD-EPI 2020) 63 >60 Jul 07, 2021 11:03 [facility] CBC PROFILE Specimen T ype: BLOOD AM No comment enter ed. Ordering Provid er: BRENDA SANCHEZ Report Released Date/Time: May 20, 2021 10:59 AM Reporting Lab: [facility] [address] [facility] [address] Performing Lab: [facility] [address] [facility] [address] WBC 16.2 H 4.5-11.0 RBC 5.29 4.23-5.66 [...] ABSOLUTE NRBC 0.00 0-0 Jul 07, 2021 [facility] MICROALBUMIN/CREATININE RATIO S pecimen Type: URINE 11:03 AM CLINIC PANEL Comment: Tests performed on [employer] (405) SN:[id number] Ordering Provid er: BRENDA SANCHEZ Report Released Date/Time: May 20, 2021 10:59 AM Reporting Lab: [facility] [address] [facility] [address] Performing Lab: [facility] [address] [facility] [address] CREATININE (URINE,RANDOM) 48.4 MICROALBUMIN, QUANTITATIVE 3.6 0.0 -29.9 MICROALBUMIN/CREATININE RATIO 74.4 H 0.0-29.9 Jul 07, 2021 [facility] URINALYSIS W/REFLEX Specimen Type: URINE 11:03 AM TO CULTURE No comment enter ed. Ordering Provid er: BRENDA SANCHEZ Report Released Date/Time: May 20, 2021 10:59 AM Reporting Lab: [facility] [address] [facility] [address] [facility] [address] [facility] [address] URINE COLOR Yellow YELLOW SPECIFIC GRAVITY 1.008 [...] smoking and tobacco-related health factors from the [place] facility where the Encounter took place.Current Smoking Status This section includes the most current smoking, or tobacco-related health factor, from the [place] facility where the Encounter took place. Date/Time Current Smoking Comment Facility Status Dec 19, 2017 11:42 AM QUIT TOBACCO USE > [address] [facility] YEARS AGO Former user of tobacco products quit 27 yrs ago [facility] Tobacco Use History This section includes a history of the smoking, or tobacco- related health factors, that were collected on or before the date of the Encounter. The data comes from the [place] facility where the Encounter took place. Date/Time [...] [place] AGO quit 4 yr ago [facility] August 27, 2004 01:30 PM HISTORY OF SMOKING [place] 12/25 [facility] August 27, 2004 01:30 PM QUIT TOBACCO USE IN [place]ST [place] YEAR 2 years [facility] Dec 19, 2003 01:13 PM QUIT TOBACCO USE IN PAST [place] YEAR [facility] September 05, 2003 02:45 PM HISTORY OF SMOKING WHITE [place] quit 12/25 [facility] September 05, 2003 02:45 PM QUIT TOBACCO USE IN PAST [place] YEAR quit 12/26 [facility] Mar 27, 2002 11:07 AM CURRENT SMOKER [place] Pt. smokes 1 ppd. [facility] Mar 14, 2001 03:27 PM CURRENT SMOKER [place] [facility] Advance Directives: All historical and current Section Date Range: From patient's date of to the date document was created. This section includes ALL of a patient's completed or amended [place] Advance and Rescinded Directives. The entries below indicate that a directive exists for the patient, but an actual copy is not included with this document. The data comes from all [place] facilities. Date Advance Directives Provider Source Apr 06, 2010 ADVANCE DIRECTIVE SVETLANA FRANK J CT [facility] Encounter Notes: All associated encounter notes This section contains the clinical notes associated to the Encounter. Date/Time Encounter Note(s) Provider Source Jun 28, 2021 11:16 AM TELEPHONE ENCOUNTER NOTE: [place] LOCAL TITLE: VISN 1 [facility] MED RENEWAL [facility] STANDARD TITLE: TELEPHONE ENCOUNTER NOTE DATE OF NOTE: JUN 28, 2021@11:16:12 ENTRY DATE: JUN 28, 2021@11:32:09 AUTHOR: ALEX GONZALES EXP COSIGNER: URGENCY: STATUS: COMPLETED Type of call: PHARMACY. Caller Response: ADM CALL RESOLVED SPOUSE called in for RUPERT SERNA ([phone]) . Comments: 's called regarding the PREDNISONE T AB 5MG prescription. She stated that the [facility] is completely ou t of this medication, and he is right back where he started. He is in severe pain. The renewal that was entered into the sy stem on 06/24/21 stated the following: TAKE TABLETS BY MOUTH DIRECTED : TAKE EIGHT T ABLETS BY MOUTH DAILY FOR 5 DAYS, THEN TAKE FOUR TABLETS DAILY FOR 2 DAYS, THEN TAKE TWO TABLETS DAILY FOR 2 DAYS, THEN TAKE ONE TABLET DAILY FOR 2 DAYS = 8 tablets for 5 days = 40 tablets 4 tablets for 2 days = 8 tablets 2 tablets for 2 days = 4 tablets 1 tablet for 2 days = 2 tablets Total number of tablets = 54 tablets = With the 06/24/21 renewal, only 27 pills were or dered. When checking the pharmacy tracking system, the following notation was seen: CANCELLED: CORRECT QTY & RESUBMIT Please resubmit the prescription and expedite to the [facility]. Evaluation/Management Code: HC PRO PHONE CALL 5- 10 MIN ([id number]). Starting at: 06/28/2021 @ 11:16:12 AM Ending at: 06/28/2021 @ 11:25:36 AM Length: 9 minutes. Author: ALEX GONZALES Caller Area: [facility] The following identifiers were used to verify th is patient: SSN. Chief Complaint: Not applicable to call. Class Code: Other specified counseling. Contact Patient's Email Address: // ALEX GOMEZ [address] [facility] Signed: 06/28/2021 11:32 Receipt Acknowledged By: * AWAITING SIGNATURE * ANUEL ANGEL * AWAITING SIGNATURE * ASHTYN CHASE * AWAITING SIGNATURE * BRENDA SANCHEZ * AWAITING SIGNATURE * SARAH DUPONT V
--- OUTSIDE RECORDS SUMMARY | 2021-12-31 13:02 | XMS_ITS | Encounter Summary ---
:1945 Author Organization [facility] Address [address] [place] [address] Support Name Relationship Address Phone CATHERINE SERNA Unavailable [address] [place] [address] COLEMAN, DAUGHTER Unavailable Unavailable Insurance Providers: All historical and current Section Date Range: From patient's date of to the date document was created.This section includes the names of all active insurance providers for the patient. Insurance Type of Plan Start of End of Group Member Insurance Policy P atient's Provider Coverage Name Policy Policy Number ID Provider's Petres's Relationship Coverage Coverage Telephone Name to Policy Number Peters MEDICARE MEDICARE PART Oct 22, PART A [id number] [phone] DAVIGN ON, PATIENT (WNR) (M) A 2011 UP35 1 RUPERT MEDICARE MEDICARE PART Oct 22, PART A [id number] [phone] WILIAMIGN ON, PATIENT (WNR) (M) A 2011 [id number] 00 RUPERT Selected Encounter This section includes the information on record at PA for the Encounter. Date/Time Encounter Type Encounter Description Reason Provider Source Jun 23, 2021 01:12 Outpatient Encounter TELEPHONE TRIAGE PM IHE Encounter Template Text not used by PA Plan of Treatment: Future Appointments (+ 6 months) and Future Tests (+/- 45 days) The Plan of Treatment section includes future care activities for the patient from all PA treatmentfacilities. This section includes future appointments and future orders which are active, pending orscheduled.Future Appointments This section includes appointments that were scheduled to occur 6 months from the date of the Encounter, up to a maximum of 20 appointments. The data comes from all PA treatment facilities. Appointment Date/Time Appointment Type Appointment Facili ty Name Jul 07, 2021 11:00 AM AMBULATORY - MEDICINE [facility] Jul 08, 2021 02:00 PM AMBULATORY - MEDICINE [facility] Jul 13, 2021 11:00 AM AMBULATORY - MEDICINE [facility] Aug 10, 2021 11:00 AM AMBULATORY - MEDICINE [facility] Aug 12, 2021 01:00 PM AMBULATORY - MEDICINE [facility] September 10, 2021 11:25 AM AMBULATORY - MEDICINE [facility] September 16, 2021 01:30 [facility] Oct 21, 2021 10:30 AM [facility]INE [facility] Oct 21, 2021 11:00 AM AMBULATORY - MEDICINE [facility] Oct 26, 2021 11:00 AM AMBULATORY - MEDICINE [facility] Dec 23, 2021 02:04 [facility] Dec 24, 2021 01:00 PM AM[facility] - MEDICINE [facility] Lab Results: +/- 30 days of the encounter This section includes the Chemistry and Hematology Lab Results on record with PA for the patient. Radiology Reports and Pathology Reports are provided separately, in subsequent sections.Lab Results This section contains the Chemistry/Hematology Results that were resulted 30 days before or 30 daysafter the date of the Encounter. Date/Time Source Result Type Result - Unit Interpretation Reference Range Comment Jul 13, 2021 [facility] P4 GLU,BUN,CREAT,LYTES,CA Speci men Type: PLASMA 12:28 PM CLINIC Comment: Tests performed on H[employer] (405) SN:[id number] Ordering Provid er: BRENDA SANCHEZ Report Released Date/Time: Jul 13, 2021 12:21 PM Reporting Lab: [facility] [address] [address] Performing Lab: [facility] [address] [address] UREA NITROGEN 14 7-25 SODIUM 138 135-145 POTASSIUM 4.1 3.5-5.0 CHLORIDE 103 100-110 CARBON DIOXIDE 23 20-30 ANION GAP 12 4-16 GLUCOSE 97 65-100 CREATININE 1.10 0.5-1.5 CALCIUM 8.6 8.5-10.5 eGFR(CKD-EPI 2020) 70 >60 Jul 13, 2021 12:28 [facility] CBC PROFILE Specimen T ype: BLOOD PM No comment enter ed. Ordering Provid er: BRENDA SANCHZE Report Released Date/Time: Jul 13, 2021 12:20 PM Reporting Lab: [facility] [address] [address] Performing Lab: [facility] [address] [address] WBC 8.8 4.5-11.0 RBC 5.25 4.23-5.66 HGB [...] 0.00 0-0 Jul 07, 2021 [facility] GLYCOHEMOGLOBIN (A1C Specimen T ype: BLOOD 11:03 AM CLINIC ONLY) Comment: Tests performed on [employer] (405) SN:[id number] Ordering Provid er: BRENDA SANCHEZ Report Released Date/Time: May 20, 2021 10:59 AM Reporting Lab: [facility] [address] [address] Performing Lab: [facility] [address] [address] HEMOGLOBIN A1C 6.1 H 4.0-5.6 Jul 07, 2021 11:03 [facility] FERRITIN Specimen T ype: SERUM AM Comment: Tests performed on [employer] (405) SN:[id number] Ordering Provid er: BRENDA SANCHEZ Report Released Date/Time: May 20, 2021 10:59 AM Reporting Lab: [facility] [address] [address] Performing Lab: [facility] [address] [place] [facility] [place] [address] FERRITIN 21.5 20-300 Jul 07, 2021 [facility] IRON+TIBC(P) Specimen Type : PLASMA 11:03 AM Comment: Tests performed on [employer] (405) SN:[id number] Ordering Provid er: BRENDA SANCHEZ Report Released Date/Time: May 20, 2021 10:59 AM Reporting Lab: [facility] [address] [address] Performing Lab: [facility] [address] [address] IRON 35 L 40-160 TIBC 470 204-475 IRON SATURATION(P) 7 L >15 UIBC(P) 435 H 126-382 Jul 07, 2021 11:03 [facility] PHOSPHORUS Specimen T ype: PLASMA AM Comment: Tests performed on [employer] (405) SN:[id number] Ordering Provid er: BRENDA SANCHEZ Report Released Date/Time: May 20, 2021 10:59 AM Reporting Lab: [facility] [address] [place] [facility] [place] [address] Performing Lab: [facility] [address] [place] [facility] [place] [address] PHOSPHORUS 3.5 2.5-5.0 Jul 07, 2021 11:03 [facility] URIC ACID Specimen T ype: PLASMA AM Comment: Tests performed on [employer] (405) SN:[id number] Ordering Provid er: BRENDA SANCHEZ Report Released Date/Time: May 20, 2021 10:59 AM Reporting Lab: [facility] [address] [place] [facility] [place] [address] Performing Lab: [facility] [address] [address] URIC ACID 8.9 H 3.3-8.7 Jul 07, 2021 [place] [address] GLU,BUN,CREAT,LYTES,CA Speci men Type: PLASMA 11:03 AM CLINIC Comment: Tests performed on [employer] (405) SN:[id number] Ordering Provid er: BRENDA SANCHEZ Report Released Date/Time: May 20, 2021 10:59 AM Reporting Lab: [facility] [address] [address] Performing Lab: [facility] [address] [address] UREA NITROGEN 17 7-25 SODIUM 131 L 135-145 POTASSIUM 3.9 3.5-5.0 CHLORIDE 97 L 100-110 CARBON DIOXIDE 20 20-30 ANION GAP 14 4-16 GLUCOSE 128 H 65-100 CREATININE 1.21 0.5-1.5 CALCIUM 8.3 L 8.5-10.5 eGFR(CKD-EPI 2020) 63 >60 Jul 07, 2021 11:03 [facility] ALBUMIN Specimen T ype: PLASMA AM Comment: Tests performed on [employer] (405) SN:[id number] Ordering Provid er: BRENDA SANCHEZ Report Released Date/Time: May 20, 2021 10:59 AM Reporting Lab: [facility] [address] [address] [facility]forming Lab: [facility] [address] [address] ALBUMIN 3.2 3.2-5.0 Jul 07, 2021 [facility] VIT D 25-OH([facility]) Specimen Typ e: SERUM 11:03 AM Comment: Tests performed on [employer] (405) SN:[id number] Ordering Provid er: BRENDA SANCHEZ Report Released Date/Time: May 20, 2021 10:59 AM Reporting Lab: [facility] [address] [address] Performing Lab: [facility] [address] [address] VIT D 25-OH(J) 17.6 L 20-50 Jul 07, 2021 [facility] PTH-INTACT(J) Specimen Type : SERUM 11:03 AM Comment: Tests performed on [employer] (405) SN:[id number] Ordering Provid er: BRENDA SANCHEZ Report Released Date/Time: May 20, 2021 10:59 AM Reporting Lab: [facility] [address] [address] Performing Lab: [facility] [address] [address] PTH-INTACT([facility]) 319.0 H 8.7-77.1 Jul 07, 2021 11:03 [facility] CBC PROFILE Specimen T ype: BLOOD AM No comment enter ed. Ordering Provid er: BRENDA SANCHEZ Report Released Date/Time: May 20, 2021 10:59 AM Reporting Lab: [facility] [address] [address] Performing Lab: [facility] [address] [address] WBC 16.2 H 4.5-11.0 RBC 5.29 4.23-5.66 [...] 0.00 0-0 Jul 07, 2021 [facility] MICROALBUMIN/CREATININE RATIO S pecimen Type: URINE 11:03 AM CLINIC PANEL Comment: Tests performed on [employer] (405) SN:[id number] Ordering Provid er: BRENDA SANCHEZ Report Released Date/Time: May 20, 2021 10:59 AM Reporting Lab: [facility] [address] [address] Performing Lab: [facility] [address] [address] CREATININE (URINE,RANDOM) 48.4 MICROALBUMIN, QUANTITATIVE 3.6 0.0 -29.9 MICROALBUMIN/CREATININE RATIO 74.4 H 0.0-29.9 Jul 07, 2021 [facility] URINALYSIS W/REFLEX Specimen Type: URINE 11:03 AM TO CULTURE No comment enter ed. Ordering Provid er: BRENDA SANCHEZ Report Released Date/Time: May 20, 2021 10:59 AM Reporting Lab: [facility] [address] [address] Performing Lab: [facility] [address] [address] URINE COLOR Yellow YELLOW SPECIFIC GRAVITY 1.008 [...] smoking and tobacco-related health factors from the PA facility where the Encounter took place.Current Smoking Status This section includes the most current smoking, or tobacco-related health factor, from the PA facility where the Encounter took place. Date/Time Current Smoking Comment Facility Status Dec 19, 2017 11:42 AM QUIT TOBACCO USE > 7 [place] YEARS AGO Former user of tobacco products quit 27 yrs ago [facility] Tobacco Use History This section includes a history of the smoking, or tobacco- related health factors, that were collected on or before the date of the Encounter. The data comes from the PA facility where the Encounter took place. Date/Time Smoking Status/Tobacco Use Comment Facil ity Oct 26, 2016 09:17 AM QUIT TOBACCO USE > 7 YEARS [place] AGO [facility] Jan 07, 2016 09:58 AM QUIT TOBACCO USE > 7 [place] [facility] September 09, 2008 10:31 AM QUIT TOBACCO USE > 7 YEARS [place] AGO 8 yrs. [facility] August 29, 2007 08:57 AM QUIT TOBACCO USE 1-7 YEARS [place] AGO [facility] Feb 22, 2007 11:44 AM QUIT TOBACCO USE IN [place] YE[place] [facility] August 28, 2006 12:57 PM QUIT TOBACCO USE 1-7 YEARS [place] AGO 5 yrs. ago [facility] August 22, 2005 10:55 AM QUIT TOBACCO USE 1-7 YEARS [place] A[place] quit 4 yr ago [facility] August 27, 2004 01:30 PM HISTORY OF SMOKING [place] 12/25 [facility] August 27, 2004 01:30 PM QUIT TOBACCO USE IN [place]ST [place] YEAR 2 years [facility] Dec 19, 2003 01:13 PM QUIT TOBACCO USE IN [place]ST [place] YE[place] [facility] September 05, 2003 02:45 PM HISTORY OF SMOKING [place] quit 12/25 [facility] September 05, 2003 02:45 PM QUIT TOBACCO USE IN [place]ST [place] YEAR quit 12/26 [facility] Mar 27, 2002 11:07 AM CURRENT SMOKER [place] Pt. smokes 1 ppd. [facility] Mar 14, 2001 03:27 PM CURRENT [place]MOKER [place] [facility] Advance Directives: All historical and current Section Date Range: From patient's date of to the date document was created. This section includes ALL of a patient's completed or amended PA Advance and Rescinded Directives. The entries below indicate that a directive exists for the patient, but an actual copy is not included with this document. The data comes from all PA facilities. Date Advance Directives Provider Source Apr 06, [address] [facility] Encounter Notes: All associated encounter notes This section contains the clinical notes associated to the Encounter. Date/Time Encounter Note(s) Provider Source Jun 23, 2021 01:12 PM TELEPHONE ENCOUNTER NOTE: KELLIE VEGA [facility] LOCAL TITLE: VISN 1 [facility] ACTION REQUIRED [facility] STANDARD TITLE: TELEPHONE ENCOUNTER NOTE DATE OF NOTE: JUN 23, 2021@13:12:14 ENTRY DATE: JUN 23, 2021@13:17:34 AUTHOR: KELLIE VEGA EXP COSIGNER: URGENCY: STATUS: COMPLETED VISN 1 [facility] ACTION REQUIRED Has ADDENDA Type of call: CLINICAL INFORMATION/EDUCATION. Caller Response: ADM CALL RESOLVED The patient, RUPERT SERNA ([id number]) Iman ne: [phone] called the call center. Comments: Monahans's spouse has questions regarding Prednis one that the patient just received. He was only given 27 tabs, and she states he was supposed to get 54. The directions are also not clear. Please call h er back at [phone]. Evaluation/Management Code: HC PRO PHONE CALL 5- 10 MIN ([id number]). Starting at: 06/23/2021 @ 1:12:14 PM Ending at: 06/23/2021 @ 1:15:24 PM Length: 3 minutes. Author: KELLIE VEGA Caller Area: [facility] The following identifiers were used to verify th is patient: SSN. Chief Complaint: Not applicable to call. Class Code: Other specified counseling. Contact Patient's Email Address: /almaz/ KELLIE GOMEZ 1 [facility] Signed: 06/23/2021 13:17 Receipt Acknowledged By: 06/24/2021 10:14 /es/ CHARMAINE DIANA for SARAH DUPONT * AWAITING SIGNATURE * MATTHEW TIRADO 06/24/2021 08:21 /almaz/ VIVIANA SANCHEZ MD Staff Physician 06/24/2021 ADDENDUM STATUS: COMPLETED I'm cc'ing the resident phsyician who called in this prescription. /almaz/ VIVIANA SANCHEZ MD Staff Physician Signed: 06/24/2021 08:21 Receipt Acknowledged By: * AWAITING SIGNATURE * ANUEL ANGEL 06/24/2021 ADDENDUM STATUS: COMPLETED It looks like only half of the prescript ion was sent. I sent the other half [...] next 1-2 days. Thank you in advance! 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 She is asking for a call back to find out when meds will be sent out. Vet is out of meds t omorrow. /es/ RCESCENCIO GOMEZ 1 [facility] Signed: 06/24/2021 08:49 Receipt Acknowledged By: * AWAITING SIGNATURE * ANUEL ANGEL 06/24/2021 ADDENDUM STATUS: COMPLETED is aware that second half of script for prednisone is on his way to him and he is grateful. He expre ssed frustration with phone system not being able to get through to the [facility]. I told him if h e was not given the option to leave a message in the future to call [facility] and as k them to transfer him to the [facility] because we do often have phone is sues. He said that instead of doing that he would have his drive him up to the clinic and throw a stone through our window with a note on it. I did tell him that I hope he doesn't do that. He did apologize for being angry, He said it was not my fault and just said that the [facility] has gone to [facility] in the last 3 years /es/ OLIVER SAUCEDA Signed: 06/24/2021 09:34 06/24/2021 ADDENDUM STATUS: COMPLETED call to pt to inform that new full script for pr ednisone had has been forward and should be rec'd 1-2day. Patient was grateful for f/i. TW informed him to c/b if not rec'd in reasonable amt of time and h e was in agreement. /almaz/ HAL FRY MSA Signed: 06/24/2021 10:25 Receipt Acknowledged By: * AWAITING SIGNATURE * OLIVER SAUCEDA
--- OUTSIDE RECORDS SUMMARY | 2021-12-31 13:02 | XMS_ITS ---
:1945 Author Organization [facility] Address [address] [place] [address] Support Name Relationship Address Phone CATHERINE SERNA Unavailable [address] [phone] [place] [address] COLEMAN, DAUGHTER Unavailable Unavailable Insurance Providers: All [...] MEDICARE MEDICARE PART Oct 22, PART A [id number] DAVIGN ON, PATIENT (WNR) (M) A 2011 UP35 1 RUPERT MEDICARE MEDICARE PART Oct 22, PART A [id number] DAVIGN ON, PATIENT (WNR) (M) A 2011 [id number] 00 RUPERT Selected Encounter This section includes the information on record at CO for the Encounter. Date/Time Encounter Type Encounter Reason Provider Source Description Jun 21, 2021 HC PRO PHONE TELEPHONE TRIAGE ICD-10-CM Z71.89 JOYCELYN ALEGRIA 09:01 AM CALL 5-10 MIN Other specified counseling with Provider Comments: Other specified counseling IHE Encounter Template Text not used by CO Assessments - Encounter Diagnoses This section includes the primary and secondary diagnoses documented for the Encounter. Date/Time Primary/Secondary Diagnosis Name Provider Source Diagnosis Jun 21, 2021 PRIMARY Other specified SARBJIT ALEGRIA 09:01 AM counseling Christian [facility] Plan of Treatment: Future Appointments (+ 6 [...] 20 appointments. The data comes from all [place] treatment facilities. Appointment Date/Time Appointment Type Appointment Facili ty Name Jul 07, 2021 11:00 AM AMBULATORY - MEDICINE [facility] Jul 08, 2021 02:00 PM AMBULATORY - MEDICINE [facility] Jul 13, 2021 11:00 AM AMBULATORY - MEDICINE [facility] Aug 10, 2021 11:00 AM AMBULATORY - MEDICINE [facility] Aug 12, 2021 01:00 [facility] September 10, 2021 11:25 AM AMBULATORY - MEDICINE [facility] September 16, 2021 01:30 PM AMBULATORY [...] and Hematology Lab Results on record with CO for the patient. Radiology Reports and Pathology Reports are provided separately, in subsequent sections.Lab Results This section contains the Chemistry/Hematology Results that were resulted 30 days before or 30 daysafter the date of the Encounter. Date/Time Source Result Type Result - Unit Interpretation Reference Range Comment Jul 13, 2021 [facility] P4 GLU,BUN,CREAT,LYTES,CA Speci men Type: PLASMA 12:28 PM CLINIC Comment: Tests performed on X-1 (405) SN:[id number] Ordering Provid er: BRENDA SANCHEZ Report Released Date/Time: Jul 13, 2021 12:21 PM Reporting Lab: [facility] [address] [facility] [address] Performing Lab: [facility] [address] [facility] [address] UREA NITROGEN 14 7-25 SODIUM 138 135-145 POTASSIUM 4.1 3.5-5.0 CHLORIDE 103 100-110 CARBON DIOXIDE 23 20-30 ANION GAP 12 4-16 GLUCOSE 97 65-100 CREATININE 1.10 0.5-1.5 CALCIUM 8.6 8.5-10.5 eGFR(CKD-EPI 2020) 70 >60 Jul 13, 2021 12:28 [facility] CBC PROFILE Specimen T ype: BLOOD PM No comment enter ed. Ordering Provid er: BRENDA SANCHEZ Report Released Date/Time: Jul 13, 2021 12:20 PM Reporting Lab: [facility] [address] [facility] [address] Performing Lab: [facility] [address] [facility] [address] WBC 8.8 4.5-11.0 RBC 5.25 4.23-5.66 HGB [...] ABSOLUTE NRBC 0.00 0-0 Jul 07, 2021 [facility] GLYCOHEMOGLOBIN (A1C Specimen T ype: BLOOD 11:03 AM CLINIC ONLY) Comment: Tests performed on X-1 (813) SN:[id number] Ordering Provid er: BRENDA SANCHEZ Report Released Date/Time: May 20, 2021 10:59 AM Reporting Lab: [facility] [address] [facility] [address] Performing Lab: [facility] [address] [facility] [address] HEMOGLOBIN A1C 6.1 H 4.0-5.6 Jul 07, 2021 11:03 [facility] FERRITIN Specimen T ype: SERUM AM Comment: Tests performed on Brito Watch Dial Printer (405) SN:[id number] Ordering Provid er: BRENDA SANCHEZ Report Released Date/Time: May 20, 2021 10:59 AM Reporting Lab: [facility] [address] [facility] [address] Performing Lab: [facility] [address] [facility] [address] FERRITIN 21.5 20-300 Jul 07, 2021 [facility] IRON+TIBC(P) Specimen Type : PLASMA 11:03 AM Comment: Tests performed on Brito Watch Dial Printer (405) SN:[id number] Ordering Provid er: BRENDA SANCHEZ Report Released Date/Time: May 20, 2021 10:59 AM Reporting Lab: [facility] [address] [facility] [address] Performing Lab: [facility] [address] [facility] [address] IRON 35 L 40-160 TIBC 470 204-475 IRON SATURATION(P) 7 L >15 UIBC(P) 435 H 126-382 Jul 07, 2021 11:03 [facility] PHOSPHORUS Specimen T ype: PLASMA AM Comment: Tests performed on Brito Watch Dial Printer (405) SN:[id number] Ordering Provid er: BRENDA SANCHEZ Report Released Date/Time: May 20, 2021 10:59 AM Reporting Lab: [facility] [address] [facility] [address] Performing Lab: [facility] [address] [facility] [address] PHOSPHORUS 3.5 2.5-5.0 Jul 07, 2021 11:03 [facility] URIC ACID Specimen T ype: PLASMA AM Comment: Tests performed on Brito Watch Dial Printer (405) SN:[id number] Ordering Provid er: BRENDA SANCHEZ Report Released Date/Time: May 20, 2021 10:59 AM Reporting Lab: [facility] [address] [facility] [address] Performing Lab: [facility] [address] [facility] [address] URIC ACID 8.9 H 3.3-8.7 Jul 07, 2021 [place] [address] GLU,BUN,CREAT,LYTES,CA Speci men Type: PLASMA 11:03 AM CLINIC Comment: Tests performed on Brito CleveX (405) SN:[id number] Ordering Provid er: BRENDA SANCHEZ Report Released Date/Time: May 20, 2021 10:59 AM Reporting Lab: [facility] [address] [facility] [address] Performing Lab: [facility] [address] [facility] [address] UREA NITROGEN 17 7-25 SODIUM 131 L 135-145 POTASSIUM 3.9 3.5-5.0 CHLORIDE 97 L 100-110 CARBON DIOXIDE 20 20-30 ANION GAP 14 4-16 GLUCOSE 128 H 65-100 CREATININE 1.21 0.5-1.5 CALCIUM 8.3 L 8.5-10.5 eGFR(CKD-EPI 2020) 63 >60 Jul 07, 2021 11:03 [facility] ALBUMIN Specimen T ype: PLASMA AM Comment: Tests performed on Brito CleveX (405) SN:[id number] Ordering Provid er: BRENDA SANCHEZ Report Released Date/Time: May 20, 2021 10:59 AM Reporting Lab: [facility] [address] [facility] [address] Performing Lab: [facility] [address] [facility] [address] ALBUMIN 3.2 3.2-5.0 Jul 07, 2021 [facility] VIT D 25-OH(WRJ) Specimen Typ e: SERUM 11:03 AM Comment: Tests performed on Brito CleveX (405) SN:[id number] Ordering Provid er: BRENDA SANCHEZ Report Released Date/Time: May 20, 2021 10:59 AM Reporting Lab: [facility] [address] [facility] [address] Performing Lab: [facility] [address] [facility] [address] VIT D 25-OH(WRJ) 17.6 L 20-50 Jul 07, 2021 [facility] PTH-INTACT([facility]) Specimen Type : SERUM 11:03 AM Comment: Tests performed on X-1 (405) SN:[id number] Ordering Provid er: BRENDA SANCHEZ Report Released Date/Time: May 20, 2021 10:59 AM Reporting Lab: [facility] [address] [facility] [address] Performing Lab: [facility] [address] [facility] [address] PTH-INTACT([facility]) 319.0 H 8.7-77.1 Jul 07, 2021 11:03 [facility] CBC PROFILE Specimen T ype: BLOOD AM No comment enter ed. Ordering Provid er: BRENDA SANCHEZ Report Released Date/Time: May 20, 2021 10:59 AM Reporting Lab: [facility] [address] [facility] [address] [facility]: [facility] [address] [facility] [address] WBC 16.2 H 4.5-11.0 RBC 5.29 4.23-5.66 [...] ABSOLUTE NRBC 0.00 0-0 Jul 07, 2021 [facility] MICROALBUMIN/CREATININE RATIO S pecimen Type: URINE 11:03 AM CLINIC PANEL Comment: Tests performed on X-1 (405) SN:[id number] Ordering Provid er: BRENDA SANCHEZ Report Released Date/Time: May 20, 2021 10:59 AM Reporting Lab: [facility] [address] [facility] [address] Performing Lab: [facility] [address] [facility] [address] CREATININE (URINE,RANDOM) 48.4 MICROALBUMIN, QUANTITATIVE 3.6 0.0 -29.9 MICROALBUMIN/CREATININE RATIO 74.4 H 0.0-29.9 Jul 07, 2021 [facility] URINALYSIS W/REFLEX Specimen Type: URINE 11:03 AM TO CULTURE No comment enter ed. Ordering Provid er: BRENDA SANCHEZ Report Released Date/Time: May 20, 2021 10:59 AM Reporting Lab: [facility] [address] [facility] [address] Performing Lab: [facility] [address] [facility] [address] URINE COLOR Yellow YELLOW SPECIFIC GRAVITY 1.008 [...] smoking and tobacco-related health factors from the [place] facility where the Encounter took place.Current Smoking Status This section includes the most current smoking, or tobacco-related health factor, from the [place] facility where the Encounter took place. Date/Time Current Smoking Comment Facility Status Dec 19, 2017 11:42 AM QUIT TOBACCO USE > 7 [facility] YEARS AGO Former user of tobacco products quit 27 yrs ago [facility] Tobacco Use History This section includes a history of the smoking, or tobacco- related health factors, that were collected on or before the date of the Encounter. The data comes from the [place] facility where the Encounter took place. Date/Time Smoking Status/Tobacco Use Comment Facil bustery Oct 26, 2016 09:17 AM QUIT TOBACCO USE > 7 YEARS [place] AGO [facility] Jan 07, 2016 09:58 AM QUIT TOBACCO USE > 7 YEARS [place] AGO [facility] September 09, 2008 10:31 AM QUIT TOBACCO USE > 7 YEARS [place] AGO 8 yrs. [facility] August 29, 2007 08:57 AM QUIT TOBACCO USE 1-7 YEARS [place] AGO [facility] Feb 22, 2007 11:44 AM QUIT TOBACCO USE IN PAST [place] YEAR [facility] August 28, 2006 12:57 PM QUIT TOBACCO USE 1-7 YEARS [place] AGO 5 yrs. ago [facility] August 22, 2005 10:55 AM QUIT TOBACCO USE 1-7 YEARS [place] AGO quit 4 yr ago [facility] August 27, 2004 01:30 PM HISTORY OF SMOKING [place] 12/25 [facility] August 27, 2004 01:30 PM QUIT TOBACCO USE IN PAST [place] YEAR 2 years [facility] Dec 19, 2003 01:13 PM QUIT TOBACCO USE IN PAST [place] YEAR [facility] September 05, 2003 02:45 PM H[place]ORY OF S[place]KING [place] quit 12/25 [facility] September 05, 2003 02:45 PM QUIT TOBACCO USE IN PAST [place] YEAR quit 12/26 [facility] Mar 27, 2002 11:07 AM CURRENT [place]MOKER [place] Pt. smokes 1 ppd. [facility] Mar 14, 2001 03:27 PM [place] [facility] Advance Directives: All historical and current Section Date Range: From patient's date of to the date document was created. This section includes ALL of a patient's completed or amended CO Advance and Rescinded Directives. The entries below indicate that a directive exists for the patient, but an actual copy is not included with this document. The data comes from all [place] facilities. Date Advance Directives Provider Source Apr 06, [address] [facility] Encounter Notes: All associated encounter notes This section contains the clinical notes associated to the Encounter. Date/Time Encounter Note(s) Provider Source Jun 21, 2021 09:01 AM TELEPHONE ENCOUNTER NOTE: SARBJIT ALEGRIA DM [facility] LOCAL TITLE: VISN 1 CLINICAL CONTACT CENTER [facility] STANDARD TITLE: TELEPHONE ENCOUNTER NOTE DATE OF NOTE: JUN 21, 2021@09:01:46 ENTRY DATE: JUN 21, 2021@09:09:01 AUTHOR: SARBJIT ALEGRIA EXP COSIGNER: URGENCY: STATUS: COMPLETED VISN 1 CLINICAL CONTACT CENTER Has ADDENDA Type of call: SYMPTOM. PCMM Provider Info: LOCAL - DM [facility] (405) PACT: NEW PACT MD *WH* (Focus: Primary Care Onl y) Primary Care Provider: CRISTIAN SANCHEZ PHONE:[phone] Underwear Cutter: SARAH DUPONT V PHONE:[phone] Clinical Associate: MATTHEW TIRADO PHONE:[phone] Snowboarder: OLIVER SAUCEDA Clinical POC: Underwear Cutter SARAH DUPONT V PHONE:[phone] Administrative POC: Snowboarder OLIVER SAUCEDA Caller Response: CLN CALL RESOLVED SPOUSE called in for WILIAMRUPERT HOFFMANN ([phone]) . Evaluation/Management Code: HC PRO PHONE CALL 5- 10 MIN ([id number]). Starting at: 06/21/2021 @ 9:01:46 AM Ending at: 06/21/2021 @ 9:05:36 AM Length: 3 minutes. Author: SARBJIT ALEGRIA Caller Area: [facility] The following identifiers were used to verify th is patient: . SSN. Chief Complaint: Leg Swelling (both legs) Triage Note Phone Triage Mon Jun 21 2021 09:03:52 GMT-0500 ([facility] lissette Time) Demographics 75 y/o Male Results CC: Leg Swelling (both legs) Nurse Recommendation: 2-8 Hours TEDP Suggestion: 2-8 Hours Nurse Recommended Follow-up Location: [facility] TEDP Suggested Follow-up Location: Clinic, [place] Values and Measures Pain scale: 10 Duration of CC: 3 Weeks Positive Responses HPI: dyspnea on exertion, worse than usual duri ng normal activities HPI: dyspnea, resting HPI: paroxysmal nocturnal dyspnea PMH: CHF Negative Responses Denies: HPI: skin erythema, legs Philo Education Verbal Education Provided for: Leg Swelling Home Care Nurse Notes: worsening bilateral leg swelling from knees down worse on left side Forwarding to PC team for f/u please Class Code: Other specified counseling. Contact Phone Number: Patient/Caller agrees with plan. 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 Not e to follow. /es/ ANUEL ANGEL Signed: 06/21/2021 10:04
--- OUTSIDE RECORDS SUMMARY | 2021-12-31 13:02 | XMS_ITS | Encounter Summary ---
:1945 Author Organization [facility] Address [address] [place] [address] Support Name Relationship Address Phone CATHERINE SERNA Unavailable [address] [phone] [place] [address] COLEMAN, DAUGHTER Unavailable Unavailable Insurance Providers: All [...] MEDICARE MEDICARE PART Oct 22, PART A [id number] DAVIGN ON, PATIENT (WNR) (M) A 2011 UP35 1 RUPERT MEDICARE MEDICARE PART Oct 22, PART A [id number] [phone] WILIAMIGN ON, PATIENT (WNR) (M) A 2011 [id number] 00 RUPERT Selected Encounter This section includes the information on record at DC for the Encounter. Date/Time Encounter Type Encounter Reason Provider Source Description Jun 21, 2021 Outpatient TELEPHONE PRIMARY ICD-10-CM VALARIE CHASE 10:13 AM Encounter CARE M10.062 AN B Idiopathic gout, left knee with Provider Comments: Idiopathic Gout, left Knee IHE Encounter Template Text not used by [facility] Assessments - Encounter Diagnoses This section includes the primary and secondary diagnoses documented for the Encounter. Date/Time Primary/Secondary Diagnosis Name Provider Source Diagnosis Jun 21, 2021 PRIMARY Idiopathic goutSALVATORE JONATHA WHITE RI SANDY 10:13 AM left knee N B [facility] Plan of Treatment: Future Appointments (+ [...] 08, 2021 02:00 PM AMBULATORY - MEDICINE [facility] Jul 13, 2021 11:00 AM AMBULATORY - MEDICINE [facility] Aug 10, 2021 11:00 AM AMBULATORY - MEDICINE [facility] Aug 12, 2021 01:00 [facility] September 10, 2021 11:25 AM AMBULATORY - MEDICINE [facility] September 16, 2021 01:30 PM AMBULATORY - MEDICINE [facility] Oct 21, 2021 10:30 AM AMBULATORY - MEDICINE [facility] Oct 21, 2021 11:00 AM AMBULATORY - MEDICINE [facility] Oct 26, 2021 11:00 AM AMBULATORY - MEDICINE [facility] Lab Results: +/- [...] 12:28 PM CLINIC Comment: Tests performed on Kapture (405) SN:[id number] Ordering Provid er: BRENDA SANCHEZ Report Released Date/Time: Jul 13, 2021 12:21 PM Reporting Lab: [facility] [address] [address] Performing Lab: [facility] [address] [address] UREA NITROGEN 14 7-25 SODIUM 138 135-145 [...] Jul 13, 2021 12:20 PM Reporting Lab: [facility] [address] [address] Performing Lab: [facility] [address] [address] WBC 8.8 4.5-11.0 RBC 5.25 4.23-5.66 HGB [...] AM CLINIC ONLY) Comment: Tests performed on Kapture (405) SN:[id number] Ordering Provid er: BRENDA SANCHEZ Report Released Date/Time: May 20, 2021 10:59 AM Reporting Lab: [facility] [address] [address] Performing Lab: [facility] [address] [address] HEMOGLOBIN A1C 6.1 H 4.0-5.6 Jul 07, 2021 11:03 [facility] FERRITIN Specimen T ype: SERUM AM Comment: Tests performed on Brito [employer]raph[employer] Technician (405) SN:[id number] Ordering Provid er: BRENDA SANCHEZ Report Released Date/Time: May 20, 2021 10:59 AM Reporting Lab: [facility] [address] [address] Performing Lab[facility] [address] [address] FERRITIN 21.5 20-300 Jul 07, 2021 [facility] IRON+TIBC(P) Specimen Type : PLASMA 11:03 AM Comment: Tests performed on Brito [employer]raph[employer] Technician (405) SN:[id number] Ordering Provid er: BRENDA SANCHEZ Report Released Date/Time: May 20, 2021 10:59 AM Reporting Lab: [facility] [address] [address] Performing Lab: [facility] [address] [address] IRON 35 L 40-160 TIBC 470 204-475 IRON SATURATION(P) 7 L >15 UIBC(P) 435 H 126-382 Jul 07, 2021 11:03 [facility] PHOSPHORUS Specimen T ype: PLASMA AM Comment: Tests performed on Brito [employer]raph[employer] Technician (405) SN:[id number] Ordering Provid er: BRENDA SANCHEZ Report Released Date/Time: May 20, 2021 10:59 AM Reporting Lab: [facility] [address] [facility] [address] Performing Lab: [facility] [address] [address] PHOSPHORUS 3.5 2.5-5.0 Jul 07, 2021 11:03 [facility] URIC ACID Specimen T ype: PLASMA AM Comment: Tests performed on Brito Rep[employer]raph[employer] Technician (405) SN:[id number] Ordering Provid er: BRENDA SANCHEZ Report Released Date/Time: May 20, 2021 10:59 AM Reporting Lab: [facility] [address] [facility] [address] [facility]: [facility] [address] [address] URIC ACID 8.9 H 3.3-8.7 Jul 07, 2021 11:03 [facility] ALBUMIN Specimen T ype: PLASMA AM Comment: Tests performed on Brito [employer] (405) SN:[id number] Ordering Provid er: BRENDA SANCHEZ Report Released Date/Time: May 20, 2021 10:59 AM Reporting Lab: [facility] [address] [address] Per[facility]: [facility] [address] [address] ALBUMIN 3.2 3.2-5.0 Jul 07, 2021 [place] [address] GLU,BUN,CREAT,LYTES,CA Speci men Type: PLASMA 11:03 AM CLINIC Comment: Tests performed on Brito [employer] (405) SN:[id number] Ordering Provid er: BRENDA SANCHEZ Report Released Date/Time: May 20, 2021 10:59 AM Reporting Lab: [facility] [address] [address] Performing [facility]: [facility] [address] [address] UREA NITROGEN 17 7-25 SODIUM 131 L 135-145 POTASSIUM 3.9 3.5-5.0 CHLORIDE 97 L 100-110 CARBON DIOXIDE 20 20-30 ANION GAP 14 4-16 GLUCOSE 128 H 65-100 CREATININE 1.21 0.5-1.5 CALCIUM 8.3 L 8.5-10.5 eGFR(CKD-EPI 2020) 63 >60 Jul 07, 2021 [facility] VIT D 25-OH([facility]) Specimen Typ e: SERUM 11:03 AM Comment: Tests performed on Brito [employer] (405) SN:[id number] Ordering Provid er: BRENDA SANCHEZ Report Released Date/Time: May 20, 2021 10:59 AM Reporting Lab: [facility] [address] [address] Performing [facility]: [facility] [address] [address] VIT D 25-OH([facility]) 17.6 L 20-50 Jul 07, 2021 [facility] PTH-INTACT([facility]) Specimen Type : SERUM 11:03 AM Comment: Tests performed on Kapture (405) SN:[id number] Ordering Provid er: BRENDA SANCHEZ Report Released Date/Time: May 20, 2021 10:59 AM Reporting [facility] [address] [address] Per[facility]: [facility] [address] [place] [phone] PTH-INTACT([facility]) 319.0 H 8.7-77.1 Jul 07, 2021 11:03 [facility] CBC PROFILE Specimen T ype: BLOOD AM No comment enter ed. Ordering Provid er: BRENDA SANCHEZ Report Released Date/Time: May 20, 2021 10:59 AM Reporting [facility] [address] [address] Performing Lab: [facility] [address] [address] WBC 16.2 H 4.5-11.0 RBC 5.29 4.23-5.66 [...] AM CLINIC PANEL Comment: Tests performed on Kapture (405) SN:[id number] Ordering Provid er: BRENDA SANCHEZ Report Released Date/Time: May 20, 2021 10:59 AM Reporting Lab: [facility] [address] [address] Performing Lab: [facility] [address] [address] CREATININE (URINE,RANDOM) 48.4 MICROALBUMIN, QUANTITATIVE 3.6 0.0 -29.9 MICROALBUMIN/CREATININE RATIO 74.4 H 0.0-29.9 Jul 07, 2021 [facility] URINALYSIS W/REFLEX Specimen Type: URINE 11:03 AM TO CULTURE No comment enter ed. Ordering Provid er: BRENDA SANCHEZ Report Released Date/Time: May 20, 2021 10:59 AM Reporting Lab: [facility] [address] [address] Performing Lab: [facility] [address] [address] URINE COLOR Yellow YELLOW SPECIFIC GRAVITY 1.008 [...] AM QUIT TOBACCO USE > 7 [facility] YE[facility] AGO Former user of tobacco products quit 27 yrs ago [facility] Tobacco Use History This section includes a history of the smoking, or tobacco- related health factors, that were collected on or before the date of the Encounter. The data comes from the [place] facility where the Encounter took place. Date/Time Smoking Status/Tobacco Use Comment [facility] Oct 26, 2016 09:17 AM QUIT TOBACCO USE > 7 YEARS [place] A[place] [facility] Jan 07, 2016 09:58 AM QUIT TOBACCO USE > 7 YEARS [place] A[place] [facility] September 09, 2008 10:31 AM QUIT TOBACCO USE > 7 YEARS [place] A[place] 8 yrs. [facility] August 29, 2007 08:57 AM QUIT TOBACCO USE 1-7 YEARS [place] A[place] [facility] Feb 22, 2007 11:44 AM QUIT TOBACCO USE IN PAST [place] YEAR [facility] August 28, 2006 12:57 PM QUIT TOBACCO USE 1-7 YEARS [place] A[place] 5 yrs. ago [facility] August 22, 2005 10:55 AM QUIT TOBACCO USE 1-7 YEARS [place] A[place] quit 4 yr ago [facility] August 27, 2004 01:30 PM HISTORY OF SMOKING [place] 12/25 [facility] August 27, 2004 01:30 PM QUIT TOBACCO USE IN [place]ST [place] YEAR 2 years [facility] Dec 19, 2003 01:13 PM QUIT TOBACCO USE IN PAST [place] YE[place] [facility] September 05, 2003 02:45 PM HISTORY OF SMOKING [place] quit 12/25 [facility] September 05, 2003 02:45 PM QUIT TOBACCO USE IN [place]ST [place] YEAR quit 12/26 [facility] Mar 27, 2002 11:07 AM CURRENT SMOKER [place] Pt. smokes 1 ppd. [facility] Mar 14, 2001 03:27 PM CURRENT S[place]KER [place] [facility] Advance Directives: All historical and current [...] 06, [address] [facility] Encounter Notes: All associated encounter notes This section contains the clinical notes associated to the Encounter. Date/Time Encounter Note(s) Provider Source Jun 21, 2021 10:13 AM TELEHEALTH NOTE: ANUEL ANGEL [place] LOCAL TITLE: TELE URGENT CARE PROVIDER RA GONZALEZ STANDARD TITLE: TELEHEALTH NOTE DATE OF NOTE: JUN 21, 2021@10:13 ENTRY DATE: JUN 21, 2021@10:13:44 AUTHOR: ANUEL ANGEL EXP COSIGNER: ASHTYN CUENCA URGENCY: STATUS: COMPLETED TELE URGENT CARE PROVIDER Has ADDENDA This is a tele-urgent care visit to address acut e/urgent issues. Definitive care on chronic medical issues will b e deferred to routine Primary Care appointment/provider. Consult Origin: Referral from the Clinical Contact Center/Call Center Type of Visit: Phone Visit: Visit conducted by telephone. Loca tion/emergency number confirmed. Emergency contact information was obtained as fo llows: Patient's current address [address] [place] [address] Patient's Subjective: Patient is a 75 yo male with PMHx lung nodule, CVA, atrial fibrillation, ?gout,who presents to telehealth with a 3 week h istory of left leg swelling. Patient reports that 3 weeks ago, he noticed sw elling in his left leg and knee. He reports that he did not hav e any trauma to the knee. The leg pain acutely worsened 1 week ago and has progressed t o the point where the patient has difficulty walking on the leg due to pain. H e reports that the swelling extends from his left foot up to above his left knee. There is no skin discoloration. He reports th at the skin feels slightly warmer in his foot/ankle. He has shortness of breath at baseline a nd denies worsening of the dyspnea. He denies fever, chills, sweats , n/v, chest pain, cough, wheeze, abdominal pain. He does not have swelling in hi s right leg. He has not had any recent surgeries or long periods of being sedentary. He has not miss ed any eliquis doses. The patient reports that he has had gout flares in the past and this feels like a previous gout flare. With regard to medications, as stated above, he has been on eliquis and has not missed any doses. He takes lasix 40 mg bid, and has had no recent dose changes. He has also been on amlodipine for year s. ACTIVE PROBLEMS: Active problems - Computerized Problem List is t he source for the followin. Solitary nodule of lung 2. Long-term current use of anticoagulant 3. Atrial fibrillation 4. Cerebral infarction 5. Health Maint 6. Headaches * 7. Adiposity (SNOMED CT 826443400) 8. Gastroesophageal Reflux Disorder 9. Hyperlipidemia (SNOMED CT 17514985) 10. Depression * 11. Benign essential hypertension (SNOMED CT 120 1005) 12. Impotence 13. Abstinent alcoholic (SNOMED CT 002603082) ALLERGIES/ADR: Patient has answered [facility] RXOP - Outpatient Pharmacy Drug.................................... Last Rx # Stat Qty Issued Filled Rem FUROSEMIDE 40MG TAB [id number] ACTIVE/SUSP 180 04/19/2021 07/08/2021 (2) SIG: TAKE ONE TABLET BY MOUTH TWICE A DAY TO RE MOVE FLUID/CONTROL BLOOD PRESSURE Provider: ZACHARY MCNAMARA Cost/Fill: $ 4.10 ACETAMINOPHEN 500MG TAB [id number] ACTIVE 200 02/25/2021 06/27/2021 (2) SIG: TAKE ONE TABLET BY MOUTH EVERY SIX HOURS A S NEEDED FOR PAIN Provider: PETERSON SANCHEZ Cost/Fill: $ 3 .62 OMEPRAZOLE 20MG EC CAP [id number] ACTIVE 180 03/16/2021 06/27/2021 (2) SIG: TAKE ONE CAPSULE BY MOUTH TWICE A DAY FOR STOMACH ACID (TAKE HALF-HOUR BEFORE A MEAL(S) Provider: PETERSON SANCHEZ Cost/Fill: $ 3 .08 COLCHICINE 0.6MG TAB [id number] ACTIVE 30 05/20/2021 06/27/2021 (2) SIG: TAKE ONE TABLET BY MOUTH EVERY DAY FOR GOU T Provider: PETERSON SANCHEZ Cost/Fill: $ 4 .33 ISOSORBIDE MONONITRATE 30MG SA TAB [id number] ACTIVE 90 04/19/2021 06/09/2021 (3) SIG: TAKE ONE TABLET BY MOUTH EVERY DAY TO PREV ENT ANGINA Provider: ZACHARY MCNAMARA Cost/Fill: $ 3.62 ASPIRIN 81MG EC TAB [id number] ACTIVE 120 10/30/2020 05/27/2021 (1) SIG: TAKE ONE TABLET BY MOUTH EVERY DAY TO PREVENT STROKE/HEART ATTACK OR FOR PAIN/SWELLING/INFLAMMATION Provider: ODILON BATRES Cost/Fill: $ 0.55 APIXABAN 5MG TAB [id number] ACTIVE 180 12/25/2020 05/27/2021 (2) SIG: TAKE ONE TABLET BY MOUTH EVERY TWELVE HOUR S TO HELP PREVENT BLOOD CLOTS (ANTICOAGULATION) Provider: FLOR VALLEJO Cost/Fill: $230.85 AMLODIPINE BESYLATE 10MG TAB [id number] ACTIVE 90 04/19/2021 05/23/2021 (3) SIG: TAKE ONE TABLET BY MOUTH EVERY DAY FOR BLOOD PRESSURE/HEART, DO NOT TAKE WITH GRAPEFRUIT JUICE Provider: ZACHARY MCNAMARA Cost/Fill: $ 2.89 FOLIC ACID 1MG TAB [id number] ACTIVE 90 07/30/2020 05/16/2021 (0) SIG: TAKE ONE TABLET BY MOUTH EVERY DAY VITAMIN /NUTRITION SUPPLEMENT Provider: JAYY HILL Cost/Fill: $ 0.32 ATORVASTATIN CALCIUM 80MG TAB [id number] ACTIVE 90 04/19/2021 05/07/2021 (3) SIG: TAKE ONE TABLET BY MOUTH EVERY DAY TO LOWE R CHOLESTEROL Provider: ZACHARY MCNAMARA Cost/Fill: $ 5.45 METOPROLOL SUCCINATE 200MG SA TAB [id number] ACTIVE 90 04/19/2021 05/01/2021 (3) SIG: TAKE ONE TABLET BY MOUTH EVERY DAY FOR BLO OD PRESSURE/HEART Provider: ZACHARY MCNAMARA Cost/Fill: $ 14.2 4 POTASSIUM CHLORIDE 10MEQ SA TAB [id number] ACTIVE 180 04/19/2021 04/19/2021 (3) SIG: TAKE TWO TABLETS BY MOUTH EVERY DAY TO SUP PLEMENT POTASSIUM Provider: ZACHARY MCNAMARA Cost/Fill: $ 17.5 5 DICLOFENAC NA 1% TOP GEL [id number] ACTIVE 100 10/30/2020 11/02/2020 (2) SIG: APPLY 2 GRAMS TO UPPER EXTREMITIES TOPICAL LY FOUR TIMES DAILY NEEDED FOR PAIN/INFLAMMATION. *DO NOT EXCEED 16 GRAMS DAILY TO ANY JOINT OF LOWER EXTREMITIES. DO NOT EXCEED 8 GRAMS DAILY TO ANY JOINT OF UPPER EXTREMITIES. DO NOT EXCEED TOTAL DOSE OF 32 GRA MS DAILY OVER ALL JOINTS. Provider: ODILON BATRES Cost/Fill: $ 2.86 RXNV - Non VA Meds Non-VA Med: POTASSIUM CHLORIDE TAB,SA Status: Discontinued (JUN 23, 2017) CPRS Order #: [id number] Documented By: CRIS GONZALEZ MD Documented Date: OCT 31, 2016@11:54:19 Clinic: [facility] Start Date: Dispense Drug: POTASSIUM CHLORIDE 10MEQ SA TAB Dosage: 10MEQ Med Route: MOUTH Schedule: EVERY DAY Statement/Explanation/Comment: Non-VA Med: FOLIC ACID TAB Status: Discontinued (OCT 31, 2016) CPRS Order #: [id number] Documented By: CRIS GONZALEZ MD Documented Date: OCT 31, 2016@12:01:39 Clinic: [facility] Start Date: Dispense Drug: FOLIC ACID 1MG TAB Dosage: 1MG Med Route: MOUTH Schedule: EVERY DAY Statement/Explanation/Comment: Non-VA Med: ATORVASTATIN TAB Status: Discontinued (JUN 23, 2017) CPRS Order #: [id number] Documented By: CRIS GONZALEZ MD Documented Date: OCT 31, 2016@12:01:40 Clinic: [facility] Start Date: Dispense Drug: ATORVASTATIN CALCIUM 80MG TAB Do bandar: 80MG Med Route: MOUTH Schedule: EVERY DAY Statement/Explanation/Comment: Non-VA Med: AMLODIPINE TAB Status: Discontinued (OCT 31, 2016) CPRS Order #: [id number] Documented By: CRIS GONZALEZ MD Documented Date: OCT 31, 2016@12:01:40 Clinic: [facility] Start Date: Dispense Drug: AMLODIPINE BESYLATE 10MG TAB Dos age: 10MG Med Route: MOUTH Schedule: EVERY DAY Statement/Explanation/Comment: Non-VA Med: ACETAMINOPHEN TAB Status: Discontinued (FEB 16, 2018) CPRS Order #: [id number] Documented By: CRIS GONZALEZ MD Documented Date: OCT 31, 2016@12:01:40 Clinic: [facility] Start Date: Dispense Drug: ACETAMINOPHEN 325MG TAB Dosage: 650MG Med Route: MOUTH Schedule: EVERY SIX HOURS NEEDED Statement/Explanation/Comment: for pain Non-VA Med: OMEPRAZOLE CAP,EC Status: Discontinued (OCT 31, 2016) CPRS Order #: [id number] Documented By: CRIS GONAZLEZ MD Documented Date: OCT 31, 2016@12:01:40 Clinic: [facility] Start Date: Dispense Drug: OMEPRAZOLE 20MG EC CAP Dosage: 2 0MG Med Route: MOUTH Schedule: TWICE A DAY Statement/Explanation/Comment: Non-VA Med: ZZZWARFARIN TAB Status: Discontinued (NOV 24, 2016) CPRS Order #: [id number] Documented By: CRIS GONZALEZ MD Documented Date: OCT 31, 2016@12:01:40 Clinic: [facility] Start Date: Dispense Drug: ZZZWARFARIN (COUMADIN) NA 1MG TA B Dosage: 1MG Med Route: MOUTH Schedule: ONCE DAILY Statement/Explanation/Comment: Non-VA Med: FUROSEMIDE TAB Status: Discontinued (JUN 23, 2017) CPRS Order #: [id number] Documented By: CRIS GONZALEZ MD Documented Date: OCT 31, 2016@12:01:40 Clinic: [facility] Start Date: Dispense Drug: FUROSEMIDE 20MG TAB Dosage: 20MG Med Route: MOUTH Schedule: EVERY DAY Statement/Explanation/Comment: Non-VA Med: CAPSAICIN CREAM,TOP Status: Active CPRS Order #: [id number] Documented By: CRIS GONZALEZ MD Documented Date: OCT 31, 2016@12:01:40 Clinic: [facility] Start Date: Dispense Drug: CAPSAICIN 0.1% CREAM Dosage: SMA LL AMOUNT Med Route: TOPICALLY Schedule: TWICE DAILY N EEDED Statement/Explanation/Comment: for joint pain Non-VA Med: ASPIRIN TAB,EC Status: Discontinued (FEB 02, 2017) CPRS Order #: [id number] Documented By: CRIS GONZALEZ MD Documented Date: OCT 31, 2016@12:05:32 Clinic: [facility] Start Date: Dispense Drug: ASPIRIN 81MG EC TAB Dosage: 81MG Med Route: MOUTH Schedule: EVERY DAY Statement/Explanation/Comment: Non-VA Med: METOPROLOL LONG ACTING TAB,SA Status: Discontinued (SEP 22, 2017) CPRS Order #: [id number] Documented By: CARI AUSTIN MD Documented Date: OCT 31, 2016@12:16:25 Clinic: [facility] Start Date: Dispense Drug: METOPROLOL SUCCINATE 200MG SA TA B Dosage: 200MG Med Route: MOUTH Schedule: EVERY DAY Statement/Explanation/Comment: Current medications reviewed with patient/caregi sandy and reconciliation of medications related to today's visit completed, including non-VA medications and discrepancies, if identified, were addressed . Medication changes and the importance of medication management were reviewe d with the patient/caregiver today based on individual needs. Patient/caregiv er acknowledged understanding of instructions as stated. Objective: General: No acute distress (on phone) Lower Extremity: Reported pitting pedal edema on left leg. No redness. Mildly warmer skin at ankle. Reason for Referral: Other: pedal edema Assessment/Impression: Patient is a 75 yo male with PMHx lung nodule, C VA, atrial fibrillation, ? gout,who presents to telehealth with a 3 week hi story of left leg swelling. The patient reports unilateral leg swelling tae t started with left knee swelling and was f/b swelling below the knee. Although the patient has been on chronic colchecine therapy, this is most concerning for gout/pseudogout. Given that he has not responded to colchecine, and is not a good candidate for NSAIDS (on eliquis), will trial prednisone with taper. DVT was another consideration, although less likely given p atient has been compliant with eliquis. We discussed this with patient and recommended LLE DVT duplex doppler study, but patient would like to hold off. Infe ction was another possibility, although less likely. I do not think this is related to patient's HFpE F, thyroid, or venous insufficiency Plan #Left leg swelling - continue home colchecine - Prednisone 40 mg x5 days, f/b taper - Advised patient that if he develops shortness of breath, or symptoms worsening, he should come to ED. Would work patient up with CBC, BMP, CRP, uric acid, and duplex doppler to start - Advised patient to call 06/25 to provide update to nursing staff Issue resolved with Tele Urgent Care appointmen t Discharge instructions were reviewed Patient verbalizes understanding of the care gaetano n Time spent in telephone/video visit: Minutes: 30 /almaz/ ANUEL ANGEL Signed: 06/21/2021 12:47 /almaz/ ASHTYN CHASE MD Cosigned: 06/21/2021 13:14 06/21/2021 ADDENDUM STATUS: COMPLETED I have reviewed the patient's medical record and discussed the case with the resident, Dr. Angel. I agree with the assessmen t and plan as indicated in the resident note dated 06/21. I have updated the problem list as appropriate. Left knee pain with local swelling ,extedning di stally likely secondary to recurrent gout flare, appear s stereotyped with last flare approx 3 years ago per pt. Ddx includes CPPD, other inflammatory monoar thropathy, less likely infectious. DVT cannot be excluded but less like ly as on Apxiaban. Pt elects empiric treatment now, strict ED precautions of r worsening pain, snew onset shortness of breath. Start P rednisone now and cont Colchicine long-term therapy, f/u PCP as scheduled 07/13 for gout w labs prior to that visit /almaz/ ASHTYN CHASE MD Signed: 06/21/2021 13:17 Receipt Acknowledged By: * AWAITING SIGNATURE * BRENDA SANCHEZ
--- OUTSIDE RECORDS SUMMARY | 2021-12-31 13:03 | XMS_ITS | Encounter Summary ---
:1945 Author Organization [facility] Address [address] [place] [address] Support Name Relationship Address Phone CATHERINE SERNA Unavailable [address] [place] [address] COLEMAN, DAUGHTER Unavailable Unavailable Insurance Providers: All [...] MEDICARE MEDICARE PART Oct 22, PART A [id number] [phone] DAVIGN ON, PATIENT (WNR) (M) A 2011 UP35 1 RUPERT MEDICARE MEDICARE PART Oct 22, PART A [id number] [phone] WILIAMIGN ON, PATIENT (WNR) (M) A 2011 52A 00 RUPERT Selected Encounter This section includes the information on record at [place] for the Encounter. Date/Time Encounter Type Encounter Description Reason Provider Source Mar 16, 2021 12:58 Outpatient Encounter TELEPHONE TRIAGE PM IHE Encounter Template Text not used by [place] Plan of Treatment: Future Appointments (+ 6 months) and Future Tests (+/- 45 days) The Plan of Treatment section includes future care activities for the patient from all [place] treatmentfacilities. This section includes future appointments and future orders which are active, pending orscheduled.Future Appointments This section includes appointments that were scheduled to occur 6 months from the date of the Encounter, up to a maximum of 20 appointments. The data comes from all [place] treatment facilities. Appointment Date/Time Appointment Type Appointment Facili ty Name Apr 19, 2021 09:00 AM AMBULATORY - MEDICINE [facility] Jul 07, 2021 11:00 AM AM[facility]ORY - [facility]ICINE [facility] Jul 08, 2021 02:00 PM AMBULATORY [place]IC[place] [facility] Jul 13, 2021 11:00 AM [facility]UL[facility]ORY - [facility]ICINE [facility] Aug 10, 2021 11:00 AM [facility] Aug 12, 2021 01:00 PM AM[facility]UL[facility]ORY - MEDICINE [facility] September 10, 2021 11:25 AM AMBULATORY - [place]IC[place] [facility] Social History: Smoking Status (Most current) and Tobacco Use (All prior to encounter date) This section includes the most current, and the historical, smoking and tobacco-related health factors from the [place] facility where the Encounter took place.Current Smoking Status This section includes the most current smoking, or tobacco-related health factor, from the [place] facility where the Encounter took place. Date/Time Current Smoking Comment Facility Status Dec 19, 2017 11:42 AM QUIT TOBACCO USE > 7 [place] YEARS AGO Former user of tobacco products quit 27 yrs ago [facility] Tobacco Use History This section includes a history of the smoking, or tobacco- related health factors, that were collected on or before the date of the Encounter. The data comes from the [place] facility where the Encounter took place. Date/Time Smoking Status/Tobacco Use Comment Facil ity Oct 26, 2016 09:17 AM QUIT TOBACCO USE > 7 YEARS [place] AGO [facility] Jan 07, 2016 09:58 AM QUIT TOBACCO USE > 7 YEARS [place] A[place] [facility] September 09, 2008 10:31 AM QUIT TOBACCO USE > 7 YEARS [place] A[place] 8 yrs. [facility] August 29, 2007 08:57 AM QUIT TOBACCO USE 1-7 YEARS [place] A[place] [facility] Feb 22, 2007 11:44 AM QUIT TOBACCO USE IN PAST [place] YE[place] [facility] August 28, 2006 12:57 PM QUIT TOBACCO USE 1-7 YEARS [place] AGO 5 yrs. ago [facility] August 22, 2005 10:55 AM QUIT TOBACCO USE 1-7 YEARS [place] A[place] quit 4 yr ago [facility] August 27, 2004 01:30 PM HISTORY OF SMOKING DM [place] 12/25 [facility] August 27, 2004 01:30 PM QUIT TOBACCO USE IN PAST [place] 2 years [facility] Dec 19, 2003 01:13 PM QUIT TOBACCO USE IN PAST [place] YE[place] [facility] September 05, 2003 02:45 PM HISTORY OF SMOKING DM [place] quit 12/25 [facility] September 05, 2003 02:45 PM QUIT TOBACCO USE IN PAST [place] YE[place] quit 12/26 [facility] Mar 27, 2002 11:07 AM CURRENT SMOKER DM [place] Pt. smokes 1 ppd. [facility] Mar 14, 2001 03:27 PM CURRENT SMOKER DM [place] [facility] Advance Directives: All historical and current Section Date Range: From patient's date of to the date document was created. This section includes ALL of a patient's completed or amended [place] Advance and Rescinded Directives. The entries below indicate that a directive exists for the patient, but an actual copy is not included with this document. The data comes from all [place] facilities. Date Advance Directives Provider Source Apr 06, 2010 ADVANCE DIRECTIVE SVETLANA FRAKN Karen CT [facility] Encounter Notes: All associated encounter notes This section contains the clinical notes associated to the Encounter. Date/Time Encounter Note(s) Provider Source Mar 16, 2021 12:58 PM TELEPHONE ENCOUNTER NOTE: LESLIE DUQUE LOCAL TITLE: VISN 1 CCC MED RENEWAL [facility] STANDARD TITLE: TELEPHONE ENCOUNTER NOTE DATE OF NOTE: MAR 16, 2021@12:58:10 ENTRY DATE: MAR 16, 2021@13:04:23 AUTHOR: LESLIE DUQUE EXP COSIGNER: URGENCY: STATUS: COMPLETED VISN 1 CCC MED RENEWAL Has ADDENDA Type of call: PHARMACY. PCMM Provider Info: LOCAL - DM JOYCE LOBO [facility] ([phone] PACT: NEW PACT (Focus: Primary Care Only) Primary Care Provider: Shon Sanchez Needle Loom Operator: Karley Ruiz V PHONE:[phone] Clinical Associate: Matthew Tirado PHONE:[phone] Chemical Preparer: Martine Sun Clinical POC: Needle Loom Operator Karley Ruiz V PHONE:[phone] Administrative POC: Chemical Preparer Martine Sun Caller Response: ADM CALL RESOLVED SPOUSE called in for RUPERT SERNA ([phone]) . Comments: Please reenew and send ISOSORBIDE MONONITRATE TAB,SA 30MG OMEPRAZOLE CAP,EC 20MG Evaluation/Management Code: HC PRO PHONE CALL 5- 10 MIN ([phone]). Starting at: 03/16/2021 @ 12:58:10 PM Ending at: 03/16/2021 @ 1:02:07 PM Length: 3 minutes. Author: LESLIE DUQUE Caller Area: * [place] The following identifiers were used to verify th is patient: SSN. Chief Complaint: Not applicable to call. Class Code: Other specified counseling. Contact Patient's Email Address: /almaz/ LESLIE DUQUE Signed: 03/16/2021 13:04 Receipt Acknowledged By: * AWAITING SIGNATURE * BRENDA SANCHEZ * AWAITING SIGNATURE * MATTHEW TIRADO 03/16/2021 ADDENDUM STATUS: COMPLETED Both medications therefore nursing unabl e to process. PCP to renew medications as appropriate. /chip TIRADO LPN Signed: 03/16/2021 13:27
--- OUTSIDE RECORDS SUMMARY | 2021-12-31 13:03 | XMS_ITS | Encounter Summary ---
:1945 Author Organization [facility] Address [address] [place] [id number] Support Name Relationship Address Phone CATHERINE JORGENSEN Unavailable [address] [address] COLEMAN, DAUGHTER Unavailable Unavailable Insurance Providers: All [...] MEDICARE MEDICARE PART Oct 22, PART A [id number] DAVIGN ON, PATIENT (WNR) (M) A 2011 UP35 1 RUPERT MEDICARE MEDICARE PART Oct 22, PART A [id number] [phone] WILIAMIGN ON, PATIENT (WNR) (M) A 2011 52A 00 RUP[place] Selected Encounter This section includes the information on record at [facility] for the Encounter. Date/Time Encounter Type Encounter Reason Provider Source Description Apr 19, 2021 Outpatient TELEPHONE/MEDICIN ICD-10-CM I50.9 Zohreh HORNER 09:00 AM Encounter E Heart failure, ARIA G unspecified with Provider Comments: Heart Failure, unspecified IHE Encounter Template Text not used by [facility] Assessments - Encounter Diagnoses This section includes the primary and secondary diagnoses documented for the Encounter. Date/Time Primary/Secondary Diagnosis Name Provider Source Diagnosis Apr 19, 2021 PRIMARY Heart failure, VIKTORIA HORNER 09:00 AM unspecified [place] [facility] Apr 19, 2021 SECONDARY Athscl heart disease VIKTORIA HORNER 09:00 AM of tribal coronary [facility] artery w/o ang pctrs Apr 19, 2021 SECONDARY Body mass index VIKTORIA HORNER 09:00 AM [BMI] 35.0-35.9, [facility] Apr 19, 2021 SECONDARY Cerebral infarction, VIKTORIA HORNER 09:00 AM unspecified [place] [facility] Apr 19, 2021 SECONDARY Essential (primary) VIKTORIA HORNER 09:00 AM hypertension [place] [facility] Apr 19, 2021 SECONDARY watermaster (current) VIKTORIA HORNER 09:00 AM use of [place] [facility] anticoagulants Apr 19, 2021 SECONDARY Other hyperlipidemia VIKTORIA HORNER 09:00 AM [place] [facility] Apr 19, 2021 SECONDARY Unspecified atrial VIKTORIA HORNER IVER 09:00 AM fibrillation [place] [facility] Plan of Treatment: Future Appointments (+ 6 months) and Future Tests (+/- 45 days) The Plan of Treatment section includes future care activities for the patient from all [place] [facility]. This section includes future appointments and future orders which are active, pending orscheduled.Future Appointments This section includes appointments that were scheduled to occur 6 months from the date of the Encounter, up to a maximum of 20 appointments. The data comes from all [place] treatment facilities. Appointment Date/Time Appointment Type Appointment Facili ty Name Jul 07, 2021 11:00 AM AMBULATORY - MEDICINE [facility] Jul 08, 2021 02:00 [facility] Jul 13, 2021 11:00 AM [facility] - MEDICINE [facility] Aug 10, 2021 11:00 AM AMBULATORY - MEDICINE [facility] Aug 12, 2021 01:00 PM AMBULATORY - MEDICINE [facility] September 10, 2021 11:25 AM [facility] September 16, 2021 01:30 PM AMBULATORY - MEDICINE [facility] Social History: Smoking Status (Most current) and Tobacco Use (All prior to encounter date) This section includes the most current, and the historical, smoking and tobacco-related health factors from the [facility] facility where the Encounter took place.Current Smoking Status This section includes the most current smoking, or tobacco-related health factor, from the [facility] facility where the Encounter took place. Date/Time [...] [place] YE[place] 2 years [facility] Dec 19, 2003 01:13 PM QUIT TOBACCO USE IN PAST [place] YEAR [facility] September 05, 2003 02:45 PM HISTORY OF SMOKING [place] quit 12/25 [facility] September 05, 2003 02:45 PM QUIT TOBACCO USE IN [place]ST [place] YE[place] quit 12/26 [facility] Mar 27, 2002 11:07 AM CURRENT SMOKER [place] Pt. smokes 1 ppd. [facility] [...] 06, 2010 ADVANCE DIRECTIVE SVETLANA FRANK DM JOYCE J CT [facility] Encounter Notes: All associated encounter notes This section contains the clinical notes associated to the Encounter. Date/Time Encounter Note(s) Provider Source Apr 19, 2021 09:02 AM CARDIOLOGY TELEPHONE ENCOUNTER NOTE: [place] LOCAL TITLE: Telephone Note/Cardiology [facility] STANDARD TITLE: CARDIOLOGY TELEPHONE ENCOUNTER N OTE DATE OF NOTE: APR 19, 2021@09:02 ENTRY DATE: APR 19, 2021@09:02:46 AUTHOR: ZACHARY HORNER EXP COSIGNER: URGENCY: STATUS: COMPLETED [place] seen via Telephone visit [x ] Provider confirmed that [place] is currentl y located at the following address listed in their [facility] chart. [address], [place] [address] [ ] is not currently located at address listed in [facility] enter current physician location here: 's current address: 's telephone number: Additional contact information (i.e. neighbors/r elatives): e-911: Call [phone] to speak with an agent who can put you in touch with a utility operator yarn at the Patient's location. Y ou must have the physical location (address) where the Patient is currentl y located. Verbal informed consent has been obtained. HPI: Mr. Rupert Jorgensen is a 74 yo male with a history of CAD (non- obstructive) HTN, HLD, Obesi ty, Afib ([id number]= 4), CVA (2017), COPD and AMY (non-adherent with CPAP). He is being followed up via telephone for his HF with preserved function, and afib. His Catherine i s also present during the telephone visit and helps verify medication comp liance. INTERVAL HISTORY: He says that he's still doing the same since J une Tele Visit. No recent hospitalizations. Weight has increased ~8lbs due to decreased acti vity level. He denies drastic diet changes, however admits to being less active during the Winter months. 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 Weighs daily and feli ght has been steady. Interested in getting a COVID Booster; to [facility]. Gets his labs done periodically for clinic here. He still remains very cautious about COVID. He h ad a few family members come over for a few minutes for C hristmas. He stil remains weary about coming in for a jknw-gh-eqqh visit at [facility]. Afib- on doac for stroke prophylaxis Blood pressure has a machine at home but doesnt check. Denies HAs, vision changes. Medication Adherence: takes his meds daily, veri fied by his Exercise/Activity: no formal exercise Diet: egg and sausage am, sl iced of meat at noon, potato salad with protein. I Have a sweet tooth, been at the [employer] lately. He says he had one single episode of ch est pain lasting ~10mins while he was sitting on the couch watching TV, does not occur with activity or with exertional symptoms. Pt denies edema, dyspnea (unchanged), or thopnea, PND, dizziness, palpitations, near syncope, syncope. No significant weight yash nges. PMH: Adapted from Jan 2020 note Winston Baird AGRICULTURAL PRODUCTION ENGINEER and modified. # Atypical chest pain: cardiac cath [facility] 2017 No obstructive CAD # HFpEF ECHOCARDIOGRAM [place] 11/09/2017: --normal LV size and thickness. LVEF 60-65% --RV function mildly reduced --Biatrial enlargement. No significant valve dis ease BNP range 177-206 # AMY, nocturnal desaturation: referred for AMY evalution but refuses # Hypertension # Dyslipidemia # Atrial fibrillation, permanent on DOAC # Stroke October 2016 # Erectile dysfunction # COPD # Obesity # GERD # ETOH abuse, in recovery # Depression # Bilat hip pain: --Vascular studies November 01, 2017 negative: INTERPRETATION: RIGHT: Mild lower extremity arterial occlusive disease, Normal Doppler waveforms. LEFT: No significant lower extremity arterial o cclusive disease identified at rest, Normal ankle/brachial pressure ratios a nd Doppler waveforms. ALLERGIES: Patient has answered NKA Active Outpatient Medications (excluding Supplie s): Active [...] 0.6MG TAB TAKE ONE TABLET BY MOUTH DAILY ACTIVE FOR GOUT 7) DICLOFENAC NA 1% TOP [...] AMOUNT TOPI SHERWIN ACTIVE TWICE DAILY NEEDED 14 Total Medications Social History: reviewed Tobacco: smoked cigarettes 45 years, 2ppd, quit 30 years ago. Alcohol: 2 beers a day. Rec drugs: none Caffeine: 1 cup coffee in AM Activity: walks around the house, but ot herwise sedentary, mows the lawn, yard work, house repairs. Diet: makes own meals, does not add salt, occasi onally adds salt to his eggs Work: Retired 12 years ago. Relationship: to Tanvi History: Neighborhoods OBJECTIVE (based on assessment over the phone): GEN: well-sounding, no apparent distress. ENT: hearing intact to conversational voice CHEST/PULM: speaks in full sentences wit hout pausing, no coughing or increased work of breathing. NEURO: alert and oriented, coherent PSYCH: Slow speech pattern, rate,volume. COGNITIVE: no gross deficits in understanding or retention. Labs/Tests: LIVER PROFILE Collection time: Dec 23, 2020@11:49 Test Name Result Units Range --------- ------ ----- ----- GLUCOSE 121H mg/dL 65 - 100 UREA NITROGEN 11 mg/dL 7 - 25 CREATININE 1.24 mg/dl 0.5 - 1.5 eGFR 57L mL/min Ref: >=60 SODIUM 136 mmol/L 135 - 145 POTASSIUM 3.5 mmol/L 3.5 - 5.0 CHLORIDE 101 mmol/L 100 - 110 CARBON DIOXIDE 20 mmol/L 20 - 30 ANION GAP 15 mmol/L 4 - 16 CALCIUM 7.8L mg/dL 8.5 - 10.5 PROTEIN, TOTAL 7.6 g/dL 6.0 - 8.5 ALBUMIN 3.3 g/dL 3.2 - 5.0 ALKALINE PHOSPHATASE 118 U/L 40 - 150 ALT(SGPT) 31 U/L 7 - 52 AST(SGOT) 42H U/L 5 - 34 FIB-4 SCORE 1.43 INDEX Ref: <=2.67 BILIRUBIN, TOTAL 0.4 mg/dL 0.2 - 1.2 DIAGNOSTICS: CORONARY ANGIOGRAPHY [place] Vessels Summary: Nonobstructive CAD Dominance: Right dominant Stenoses Details -- Segment Stenosis Length Characteristics and Com ments -- Left Main 0% Proximal LAD 10% Luminal irregularities CIRCUMFLEX (overall) 40% Distal Circumflex 40% RCA (overall) 10% Luminal irregularities -- note: Stenosis = highest % stenosis within segm ent RIGHT HEART CATHETERIZATION Pressures (mmHg) RA mean: 13 RV: 35/ 6 PA: 37/ 25, mean 32 PCWP: 18 Q(Margoth): 3.3 L/min CI(Margoth): 1.65 L/min/m^2 Vascular Resistance: Pulmonary vascular resistance: 4.2 Wood units IN-LAB MEDICATIONS Summary Data: Total Contrast: 75 mL Total Fluoroscopy Time: 8.2 min Radiation DAP: 18518 mGy-cm2 Air Kerma: 413 mGy Estimated Blood Loss: 10 mL Specimen removed: No COMPLICATIONS IN LAB No Major Adverse Events or Complications FINAL DIAGNOSIS Nonobstructive CAD Elevated left sided filling pressures RECOMMENDATIONS Medical management of CAD COnsider gentle diuresis for suspected diastoli c dysfunction -------- ASSESSMENT/PLAN: Mr. Rupert Jorgensen is a 74 yo male with a history of CAD (non- obstructive) HTN, HLD, Obesi ty, Afib ([id number]-[id number]= 4), CVA (2017, on asa), COPD and AMY (non-adherent with C PAP). He is being followed up via telephone for his HF with preserved function, and afib. His Karen morel is also present during the telephone visit briefly to help verify medic ation compliance. #CAD (non-obstructive)- continue asa (no bleedin g problems with DOAC+ asa), beta-ck, and high intensity statin. #HFpEF- euvolemic by symptoms, continue furosemi de at the current dose; avoid excess salt and alcohol intake. #Atrial fibrillation- asymptomatic, on B B, and DOAC for stroke prophylaxis and being followed in [facility] clinic #HTN- not checking his BPs, for now will plan to continue his current regimen including amlodipine, metoprolol and the nitrate . #HL- on atorvastatin, last LDL was 45 mg/dl ther apeutic per 2019 labs. #COPD- * He notes not using any of his inhalers, recommended that he resume. * Medications renewed today. Reviewed: Medication/treatment benefits/risks/si de effects/monitoring Preventive/Health Maintenance: Exercise Cardiac diet/low na Weight loss RTC: September Phone call duration 22 mins /almaz/ Zachary Horner, MSN, AGRICULTURAL PRODUCTION ENGINEER Nurse Practitioner, Cardiology Signed: 04/19/2021 10:15
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
--- OUTSIDE RECORDS SUMMARY | 2021-12-31 13:03 | XMS_ITS | Encounter Summary ---
:1945 Author Organization [facility] Address [address] [place] [id number] Support Name Relationship Address Phone CATHERINE SERNA Unavailable [address] [phone] [place] [address] COLEMAN, DAUGHTER Unavailable Unavailable Insurance Providers: All [...] MEDICARE MEDICARE PART Oct 22, PART A [id number] [phone] DAVIGN ON, PATIENT (WNR) (M) A 2011 UP35 1 RUPERT MEDICARE MEDICARE PART Oct 22, PART A [id number] [id number] WILIAMIGN ON, PATIENT (WNR) (M) A 2011 [id number] 00 RUPERT Selected Encounter This section includes the information on record at [place] for the Encounter. Date/Time Encounter Type Encounter Reason Provider Source Description Feb 25, 2021 HC PRO PHONE TELEPHONE TRIAGE ICD-10-CM Z71.89 RAHEL TYLER 11:48 AM CALL 5-10 MIN Other specified counseling with Provider Comments: Other specified counseling IHE Encounter Template Text not used by [place] Assessments - Encounter Diagnoses This section includes the primary and secondary diagnoses documented for the Encounter. Date/Time Primary/Secondary Diagnosis Name Provider Source Diagnosis Feb 25, 2021 PRIMARY Other specified MARICRUZ TYLER 11:48 AM counseling Christian [facility] Plan of Treatment: Future Appointments [...] 20 appointments. The data comes from all [place] treatment facilities. Appointment Date/Time Appointment Type Appointment Facili ty Name Apr 19, 2021 09:00 AM AM[place]ATORY [place] [facility] Jul 07, 2021 11:00 AM AM[facility] MEDICINE [facility] Jul 08, 2021 02:00 PM [place]ORY [place] [facility] Jul 13, 2021 11:00 AM AMBULATORY [...] smoking and tobacco-related health factors from the [place] facility where the Encounter took place.Current Smoking Status This section includes the most current smoking, or tobacco-related health factor, from the [place] facility where the Encounter took place. Date/Time Current Smoking Comment Facility Status Dec 19, 2017 11:42 AM QUIT TOBACCO USE > 7 [place] YEARS AGO Former user of tobacco products quit 27 yrs ago [facility] Tobacco Use History This section includes a history of the smoking, or tobacco- related health factors, that were collected on or before the date of the Encounter. The data comes from the [place] facility where the Encounter took place. Date/Time Smoking Status/Tobacco Use Comment Facil ity Oct 26, 2016 09:17 AM QUIT TOBACCO USE > 7 YEARS [place] AGO [facility] Jan 07, 2016 09:58 AM QUIT TOBACCO USE > 7 YEARS [place] AGO [facility] September 09, 2008 10:31 AM QUIT TOBACCO USE > 7 YEARS [place] AGO 8 yrs. [facility] August 29, 2007 08:57 AM QUIT TOBACCO USE 1-7 YEARS [place] AGO [facility] Feb 22, 2007 11:44 AM QUIT TOBACCO USE IN PAST [place] YE[place] [facility] August 28, 2006 12:57 PM QUIT TOBACCO USE 1-7 YEARS [place] AGO 5 yrs. ago [facility] August 22, 2005 10:55 AM QUIT TOBACCO USE 1-7 YEARS [place] AGO quit 4 yr ago [facility] August 27, 2004 01:30 PM HISTORY OF SMOKING DM MYERST 12/25 [facility] August 27, 2004 01:30 PM QUIT TOBACCO USE IN PAST Deana MYERST YEAR 2 years [facility] Dec 19, 2003 01:13 PM QUIT TOBACCO USE IN PAST Deana MYERST YEAR [facility] September 05, 2003 02:45 PM HISTORY OF SMOKING [place] quit 12/25 [facility] September 05, 2003 02:45 PM QUIT TOBACCO USE IN PAST W MARY MYERST YEAR quit 12/26 [facility] Mar 27, 2002 11:07 AM CURRENT SMOKER DM DIAMOND Pt. smokes 1 ppd. [facility] Mar 14, 2001 03:27 PM CURRENT SMOKER DM DIAMOND [facility] Advance Directives: All historical and current Section Date Range: From patient's date of to the date document was created. This section includes ALL of a patient's completed or amended [place] Advance and Rescinded Directives. The entries below indicate that a directive exists for the patient, but an actual copy is not included with this document. The data comes from all [place] facilities. Date Advance Directives Provider Source Apr 06, 2010 ADVANCE DIRECTIVE SVETLANA FRANK DM JOYCE J CT [facility] Encounter Notes: All associated encounter notes This section contains the clinical notes associated to the Encounter. Date/Time Encounter Note(s) Provider Source Feb 25, 2021 11:48 AM TELEPHONE ENCOUNTER NOTE: MARICRUZ TYLER LOCAL TITLE: VISN 1 CCC MED RENEWAL [facility] STANDARD TITLE: TELEPHONE ENCOUNTER NOTE DATE OF NOTE: FEB 25, 2021@11:48:48 ENTRY DATE: FEB 25, 2021@11:50:46 AUTHOR: MARICRUZ TYLER EXP COSIGNER: URGENCY: STATUS: COMPLETED Type of call: PHARMACY. Caller Response: ADM CALL RESOLVED The patient, RUPERT SERNA ([id number]) Iman ne: [phone] called the call center. Comments: Renew and Mail ACETAMINOPHEN TAB 500MG Evaluation/Management Code: UNLISTED EVALUATION AND MANAGEMENT SERVICE (49024). Starting at: 02/25/2021 @ 11:48:48 AM Ending at: 02/25/2021 @ 11:49:52 AM Length: 1 minutes. Author: MARICRUZ TYLER Caller Area: [facility] The following identifiers were used to verify th is patient: SSN. Chief Complaint: Not applicable to call. Class Code: Other specified counseling. Contact Patient's Email Address: /es/ MARICRUZ TYLER MSA Signed: 02/25/2021 11:50 Receipt Acknowledged By: 02/25/2021 11:53 /almaz/ BRENDA SANCHEZ
--- OUTSIDE RECORDS SUMMARY | 2021-12-31 13:04 | XMS_ITS | Encounter Summary ---
:1945 Author Organization [facility] Address [address] [place] [address] Support Name Relationship Address Phone CATHERINE SERNA Unavailable [address] [place] [address] COLEMAN, DAUGHTER Unavailable Unavailable Insurance Providers: All [...] MEDICARE MEDICARE PART Oct 22, PART A [id number] [phone] WILIAMIGN ON, PATIENT (WNR) (M) A 2011 UP35 1 RUPERT MEDICARE MEDICARE PART Oct 22, PART A [id number] [phone] KATIE ON, PATIENT (WNR) (M) A 2011 [id number] 00 RUPERT Selected Encounter This section includes the information on record at [place] for the Encounter. Date/Time Encounter Type Encounter Reason Provider Source Description Feb 03, 2021 IMMUNIZATION PRIMARY ICD-10-CM Z23 LAFONSO DUPONT 11:00 AM ADMIN CARE/MEDICINE Encounter for N V immunization with Provider Comments: Encounter for Immunization IHE Encounter Template Text not used by [place] Assessments - Encounter Diagnoses This section includes the primary and secondary diagnoses documented for the Encounter. Date/Time Primary/Secondary Diagnosis Name Provider Source Diagnosis Feb 03, 2021 PRIMARY Encounter for CRESENCIOSARAH OSUNA [place] 10:55 AM immunization [facility] CLIN[facility] Plan of Treatment: Future Appointments (+ [...] 20 appointments. The data comes from all [place] treatment facilities. Appointment Date/Time Appointment Type Appointment Facili ty Name Apr 19, 2021 09:00 AM AMBULATORY - MEDICINE [facility] Jul 07, 2021 11:00 AM AM[facility]UL[facility] - MEDICINE [facility] Jul 08, 2021 02:00 PM AMBULATORY - MEDICINE [facility] Jul 13, 2021 11:00 AM AMBULATORY MEDICINE [facility] Immunizations: All administered on the encounter date This section contains immunizations associated to the Encounter. Immunization Series Date Issued Reaction Comments INFLUENZA VACCINE, QUADRIVALENT, ADJUVANTED Feb 03 Social History: Smoking Status (Most current) and Tobacco Use (All prior to encounter date) This section includes the most current, and the historical, smoking and tobacco-related health factors from the [place] facility where the Encounter took place.Current Smoking Status This section includes the most current smoking, or tobacco-related health factor, from the [place] facility where the Encounter took place. Date/Time Current Smoking Status Comment Facility Nov 16, 2020 10:30 AM VA-TOBACCO FORMER USER [facility] Tobacco Use History This section includes a history of the smoking, or tobacco- related health factors, that were collected on or before the date of the Encounter. The data comes from the [place] facility where the Encounter took place. Date/Time Smoking Status/Tobacco Use Comment [facility] Nov 16, 2020 10:30 AM VA-TOBACCO QUIT 15 YRS OR MORE [facility] September 06, 2018 11:34 AM VA-TOBACCO FORMER USER [facility] September 06, 2018 11:34 AM VA-TOBACCO QUIT 15 YRS OR MORE [facility] Advance Directives: All historical and current Section Date Range: From patient's date of to the date document was created. This section includes ALL of a patient's completed or amended [place] Advance and Rescinded Directives. The entries below indicate that a directive exists for the patient, but an actual copy is not included with this document. The data comes from all [place] facilities. Date Advance Directives Provider Source Apr 06, 2010 ADVANCE DIRECTIVE SVETLANA FRANK [facility] Encounter Notes: All associated encounter notes This section contains the clinical notes associated to the Encounter. Date/Time Encounter Note(s) Provider Source Feb 03, 2021 10:51 AM IMMUNIZATION NOTE: SARAH DUPONT [facility] LOCAL TITLE: Flu Shot Note STANDARD TITLE: IMMUNIZATION NOTE DATE OF NOTE: FEB 03, 2021@10:51 ENTRY DATE: FEB 03, 2021@10:51:53 AUTHOR: SARAH DUPONT V EXP COSIGNER: URGENCY: STATUS: COMPLETED The patient was given the influenza VIS which li sts the benefits and side effects of the vaccine and which reviews the ris ks of not receiving the flu vaccine. The VIS was reviewed with the patient a nd they were given an opportunity to ask questions. The patient was pr ovided education on how to decrease the risk of influen za infection including social distancing and use of good hand hygiene. The patient denied any prior severe reaction to the flu vaccine or its components. The patient gave verb al consent to receive the vaccine. The seasonal influenza vaccine VIS given to the patient: VIS version date Nov. The patient received seasonal influenza vaccine today - Influenza, Quadrivalent, Adjuvanted (Fluad) 0.5 ml IM toda y in Left Deltoid. Matte Cutter: Seqirus Lot # and Expiration Date: Lot # [id number] Exp. (Fluad) Administered by protocol/policy Complications: None /es/ SARAH DUPONT REGISTERED NURSE Signed: 02/03/2021 10:55
--- OUTSIDE RECORDS SUMMARY | 2021-12-31 13:04 | XMS_ITS | Encounter Summary ---
:1945 Author Organization [facility] Address [address] [place] [address] Support Name Relationship Address Phone CATHERINE SERNA Unavailable [address] [place] [address] COLEMAN, DAUGHTER Unavailable Unavailable Insurance Providers: All [...] MEDICARE MEDICARE PART Oct 22, PART A [id number] [phone] DAVIGN ON, PATIENT (WNR) (M) A 2011 UP35 1 RUPERT MEDICARE MEDICARE PART Oct 22, PART A [id number] [phone] WILIAMIGN ON, PATIENT (WNR) (M) A 2011 [id number] 00 RUPERT Selected Encounter This section includes the information on record at [place] for the Encounter. Date/Time Encounter Type Encounter Description Reason Provider Source Jan 28, 2021 11:44 Outpatient Encounter TELEPHONE TRIAGE AM IHE Encounter Template Text not used by [place] Plan of Treatment: Future Appointments (+ 6 months) and Future Tests (+/- 45 days) The Plan of Treatment section includes future care activities for the patient from all [place] treatmentfacilities. This section includes future appointments and future orders which are active, pending orscheduled.Future Appointments This section includes appointments that were scheduled to occur 6 months from the date of the Encounter, up to a maximum of 20 appointments. The data comes from all [place] treatment facilities. Appointment Date/Time Appointment Type Appointment Facili ty Name Feb 03, 2021 11:00 AM AMBULATORY - MEDICINE [facility] Apr 19, 2021 09:00 AM [place] [facility] Jul 07, 2021 11:00 AM AMBULATORY - MEDICINE [facility] Jul 08, 2021 02:00 PM AMBUL[place]ORY [place] [facility] Jul 13, 2021 11:00 AM AMBULATORY - MEDICINE [facility] Social History: Smoking Status (Most current) and Tobacco Use (All prior to encounter date) This section includes the most current, and the historical, smoking and tobacco-related health factors from the [place] facility where the Encounter took place.Current Smoking Status This section includes the most current smoking, or tobacco-related health factor, from the [place] facility where the Encounter took place. Date/Time Current Smoking Comment Facility Status Dec 19, 2017 11:42 AM QUIT TOBACCO USE > 7 [place] YEARS AGO Former user of tobacco products quit 27 yrs ago [facility] Tobacco Use History This section includes a history of the smoking, or tobacco- related health factors, that were collected on or before the date of the Encounter. The data comes from the [place] facility where the Encounter took place. Date/Time Smoking Status/Tobacco Use Comment Facil ity Oct 26, 2016 09:17 AM QUIT TOBACCO USE > 7 YEARS [place] AGO [facility] Jan 07, 2016 09:58 AM QUIT TOBACCO USE > 7 YEARS [place] AGO [facility] September 09, 2008 10:31 AM QUIT TOBACCO USE > 7 YEARS [place] AGO 8 yrs. [facility] August 29, 2007 08:57 AM QUIT TOBACCO USE 1-7 YEARS [place] AGO [facility] Feb 22, 2007 11:44 AM QUIT TOBACCO USE IN PAST [place] YEAR [facility] August 28, 2006 12:57 PM QUIT TOBACCO USE 1-7 YEARS [place] AGO 5 yrs. ago [facility] August 22, 2005 10:55 AM QUIT TOBACCO USE 1-7 YEARS [place] A[place] quit 4 yr ago [facility] August 27, 2004 01:30 PM HISTORY OF SMOKING DM Silva [place] 12/25 [facility] August 27, 2004 01:30 PM QUIT TOBACCO USE IN PAST [place] YEAR 2 years [facility] Dec 19, 2003 01:13 PM QUIT TOBACCO USE IN PAST [place] YE[place] [facility] September 05, 2003 02:45 PM HISTORY OF SMOKING DM [place] quit 12/25 [facility] September 05, 2003 02:45 PM QUIT TOBACCO USE IN PAST W MARY [place] LOBO YEAR quit 12/26 [facility] Mar 27, 2002 11:07 AM CURRENT SMOKER DM Silva LOBO Pt. smokes 1 ppd. [facility] Mar 14, 2001 03:27 PM CURRENT SMOKER DM Silva LOBO [facility] Advance Directives: All historical and current Section Date Range: From patient's date of to the date document was created. This section includes ALL of a patient's completed or amended [place] Advance and Rescinded Directives. The entries below indicate that a directive exists for the patient, but an actual copy is not included with this document. The data comes from all [place] facilities. Date Advance Directives Provider Source Apr 06, 2010 ADVANCE DIRECTIVE SVETLANA FRANK DM [address] CT [facility] Encounter Notes: All associated encounter notes This section contains the clinical notes associated to the Encounter. Date/Time Encounter Note(s) Provider Source Jan 28, 2021 11:44 AM TELEPHONE ENCOUNTER NOTE: HOANG DICKENS LOCAL TITLE: VISN 1 CCC ACTION REQUIRED [facility] STANDARD TITLE: TELEPHONE ENCOUNTER NOTE DATE OF NOTE: JAN 28, 2021@11:44:11 ENTRY DATE: JAN 28, 2021@11:48:05 AUTHOR: HOANG DICKENS EXP COSIGNER: URGENCY: STATUS: COMPLETED VISN 1 CCC ACTION REQUIRED Has ADDENDA Type of call: REFERRAL/CONSULT REQUEST. Caller Response: ADM CALL RESOLVED SPOUSE called in for RUPERT SERNA ([id number]) . Comments: [place] is currently scheduled for a car diology appointment on 02/16. He would like to be seen in the community for this. Evaluation/Management Code: HC PRO PHONE CALL 5- 10 MIN ([phone]). Starting at: 01/28/2021 @ 11:44:11 AM Ending at: 01/28/2021 @ 11:46:40 AM Length: 2 minutes. Author: HOANG DICKENS Caller Area: [facility] Chief Complaint: Not applicable to call. Class Code: Other specified counseling. Contact Patient's Email Address: /almaz/ HOANG DICKENS AMSA Signed: 01/28/2021 11:48 Receipt Acknowledged By: 01/29/2021 12:46 /es/ BRENDA SANCHEZ 01/29/2021 13:56 /es/ SARAH DUPONT REGISTERED NURSE 01/28/2021 12:43 /es/ VIKKI TOWNSEND Station Chief 01/28/2021 ADDENDUM STATUS: COMPLETED Appointment cancelled and RTC dispositioned per pt request. /almaz/ VIKKI TOWNSEND Station Chief Signed: 01/28/2021 12:32 Receipt Acknowledged By: 01/28/2021 14:26 /es/ Nayeli Horner, MSN, AP RN Nurse Practitioner, Cardiology 01/28/2021 13:37 /es/ BRENDA SANCHEZ 01/28/2021 ADDENDUM STATUS: COMPLETED I called patient to inquire about this c nish. No answer, no voicemail. I will place a community care consult. /almaz/ BRENDA SANCHEZ Signed: 01/28/2021 13:36 01/29/2021 ADDENDUM STATUS: COMPLETED I called [place] today to review his care options with him - he states that his was not calling to ask for OCC but for his visit to be changed to a phone visit, but he was told that he had to be seen. He states the drive to [facility] for a 20 min visit is just too long. I offered to do a phone visi t with him in 2 months (he does not want to drive in the [facility] [place]) and F2F in [place] in September. He was amenable to this. RTC for [facility] elsy Tadeo phone for dec placed. Please schedule, thank you /es/ JIMMY TADEO Cardiology Nurse Practitioner Signed: 01/29/2021 15:20 Receipt Acknowledged By: * AWAITING SIGNATURE * CHARMAINE DAVID
--- OUTSIDE RECORDS SUMMARY | 2021-12-31 13:04 | XMS_ITS | Encounter Summary ---
:1945 Author Organization [facility] rs Address [address] [place] [id number] Support Name Relationship Address Phone CATHERINE JORGENSEN Unavailable [address] [place] [address] COLEMAN, DAUGHTER Unavailable Unavailable Insurance Providers: All [...] MEDICARE MEDICARE PART Oct 22, PART A [id number] DAVIGN ON, PATIENT (WNR) (M) A 2011 [id number] 1 SHREYAS MEDICARE MEDICARE PART Oct 22, PART A [id number] [phone] WILIAMIGN ON, PATIENT (WNR) (M) A 2011 [id number] SHREYAS Selected Encounter This section includes the information on record at [place] for the Encounter. Date/Time Encounter Type Encounter Description Reason Provider Source Jan 05, 2021 12:53 Outpatient Encounter ADMIN PAT ACTIVTIES PM (MASNONCT) IHE Encounter Template Text not used by MA Plan of Treatment: Future Appointments (+ 6 months) and Future Tests (+/- 45 days) The Plan of Treatment section includes future care activities for the patient from all [place] treatmentfacilities. This section includes future appointments and future orders which are active, pending orscheduled.Future Appointments This section includes appointments that were scheduled to occur 6 months from the date of the Encounter, up to a maximum of 20 appointments. The data comes from all [place] treatment facilities. Appointment Date/Time Appointment Type Appointment Facili ty Name Feb 03, 2021 11:00 AM [facility] Apr 19, 2021 09:00 AM [facility] Lab Results: +/- 30 days of the encounter This section includes the Chemistry and Hematology Lab Results on record with MA for the patient. Radiology Reports and Pathology Reports are provided separately, in subsequent sections.Lab Results This section contains the Chemistry/Hematology Results that were resulted 30 days before or 30 daysafter the date of the Encounter. Date/Time Source Result Type Result - Unit Interpretation Reference Range Comment Dec 23, 2020 11:[address] [facility] LIVER PROFILE Sp ecimen Type: PLASMA Comment: Tests performed on uchoose (405) [id number] Ordering Provid er: FLOR VALLEJO Report Released Date/Time: May 08, 2020 12:25 PM Reporting Lab: [facility] [address] [facility] [address] Performing Lab: [facility] [address] [facility] [address] PROTEIN, TOTAL 7.6 6.0-8.5 ALBUMIN 3.3 3.2-5.0 BILIRUBIN, TOTAL 0.4 0.2-1.2 ALKALINE PHOSPHATASE 118 40-150 ALT(SGPT) 31 7-52 AST(SGOT) 42 H 5-34 FIB-4 SCORE 1.43 <2.67 Dec 23, 2020 [place] P4 GLU,BUN,CREAT,LYTES,CA Speci men Type: PLASMA 11:49 AM [facility] Comment: Tests performed on [employer] (405) SN:[id number] Ordering Provid er: FLOR VALLEJO Report Released Date/Time: May 08, 2020 12:25 PM Reporting Lab: [facility] [place] [facility] [address] [facility] [address] Performing Lab: [facility] [place] [facility] [address] [facility] [address] UREA NITROGEN 11 7-25 SODIUM 136 135-145 POTASSIUM 3.5 3.5-5.0 CHLORIDE 101 100-110 CARBON DIOXIDE 20 20-30 ANION GAP 15 4-16 GLUCOSE 121 H 65-100 CREATININE 1.24 0.5-1.5 CALCIUM 7.8 L 8.5-10.5 eGFR 57 L >60 Dec 23, 2020 11:[address] [facility] CBC NO DIFF Sp ecimen Type: BLOOD No comment enter ed. Ordering Provid er: FLOR VALLEJO Report Released Date/Time: May 08, 2020 12:25 PM Reporting Lab: [facility] [place] [facility] [address] [facility] [address] Performing Lab: [facility] [place] [facility] [address] [facility] [address] WBC 9.4 4.5-11.0 RBC 5.05 4.23-5.66 HGB 12.5 L 12.8-17 HEMATOCRIT 40.4 39.2-50.4 MCV 80.0 L 82-99 MCH 24.8 L 26.2-32.6 MCHC 30.9 30.8-35.1 PLT 355 140-360 MPV 10.1 9.2-12.4 RDW 17.0 H 12.0-16.0 Social History: Smoking Status (Most current) and Tobacco Use (All prior to encounter date) This section includes the most current, and the historical, smoking and tobacco-related health factors from the MA facility where the Encounter took place.Current Smoking Status This section includes the most current smoking, or tobacco-related health factor, from the MA facility where the Encounter took place. Date/Time [...] the Encounter. The data comes from the [place] facility where the Encounter took place. Date/Time Smoking Status/Tobacco Use Comment [facility] ity Oct 26, 2016 09:17 AM QUIT TOBACCO USE > 7 [place] [facility] Jan 07, 2016 09:58 AM QUIT TOBACCO USE > 7 [place]ARS [place] [facility] September 09, 2008 10:31 AM QUIT TOBACCO USE > 7 YEARS [place] 8 yrs. [facility] August 29, 2007 08:57 AM QUIT TOBACCO USE 1-7 [place]ARS [place] [facility] Feb 22, 2007 11:44 AM QUIT TOBACCO USE IN PAST [place] YEAR [facility] August 28, 2006 12:57 PM QUIT TOBACCO USE 1-7 YEARS [place] 5 yrs. ago [facility] August 22, 2005 10:55 AM QUIT TOBACCO USE 1-7 YEARS [place] quit 4 yr ago [facility] August 27, 2004 01:30 PM HISTORY OF SMOKING [place] 12/25 [facility] August 27, 2004 01:30 PM QUIT TOBACCO USE IN PAST [place] YEAR 2 years [facility] Dec 19, 2003 01:13 PM QUIT TOBACCO USE IN PAST [place] YEAR [facility] September 05, 2003 02:45 PM HISTORY OF SMOKING [place] quit 12/25 [facility] September 05, 2003 02:45 PM QUIT TOBACCO USE IN PAST [place] YEAR quit 12/26 [facility] Mar 27, 2002 11:07 AM CURRENT SMOKER DM Silva JCChristian Pt. smokes 1 ppd. [facility] Mar 14, 2001 03:27 PM CURRENT SMOKER [place] [facility] Advance Directives: All historical and current Section Date Range: From patient's date of to the date document was created. This section includes ALL of a patient's completed or amended [place] Advance and Rescinded Directives. The entries below indicate that a directive exists for the patient, but an actual copy is not included with this document. The data comes from all [place] facilities. Date Advance Directives Provider Source Apr 06, 2010 ADVANCE DIRECTIVE MONIKAFRANKLYNSVETLANA DM Jones [facility] Encounter Notes: All associated encounter notes This section contains the clinical notes associated to the Encounter. Date/Time Encounter Note(s) Provider Source Jan 05, 2021 12:53 PM LETTERS: TORIBIO HSU [place] LOCAL TITLE: Letter To Patient [facility] STANDARD TITLE: LETTERS DATE OF NOTE: JAN 05, 2021@12:53 ENTRY DATE: JAN 05, 2021@12:53:40 AUTHOR: TORIBIO HSU EXP COSIGNER: URGENCY: STATUS: COMPLETED DEPARTMENT OF [facility] [address] [place] [address] JAN 05, 2021 MR. SHREYAS JORGENSEN [address] [place], [place] [address] Dear Mr. Shreyas Jorgensen: We are writing to clarify the policies and proce dures of the [facility]. There has under standably been some confusion regarding the telephone appointments, as our clinic functions very differently than other clinics at the [place]. You have likely received a phone call an d/or letter with a date and time for a phone appointment with our clinic, titled [facility] PHONE. You will almost always receive a phone call from a provid er in our clinic on the date of your scheduled phone visit in this cl inic, but you will rarely receive that phone call at the specified time and we dont wan t you waiting around for our call. We prioritize our phone calls by calling v eterans who have labs that are out of range first. If for some reason you dont hear from us that da y, it means that your lab results are not concerning, and you can continue taking your medication(s) as you have been. No news is good news. If we cant reach you, we will leave a message on your voicemail (if you have given us permission to do so) and send a letter. If we are unable to leave a voicemail or reach you by phone, we will provide your lab results via letter. You will always receive your results from us by phone message and/or letter, and you can always call us if you have any quest ions or concerns youd like to report. As always, we request that you give us a call if youve been hospitalized, have had any major changes to your medications, have any upcoming tests or procedures, or any minor symptoms of bleeding. Thank you for your patience and for the honor of being able to serve you. [facility] [address] [place] [address] [phone]
--- NOTE | 2021-12-31 13:05 | ED.GENADUL_ITS ---
Discharge Plan Disposition Patient Disposition: VIOLET Condition: Serious Discharge Details Chief Complaint: GenMedical Primary Care Provider: [facility] Provider: Ailyn Hoffman Home Meds and New Rx's Prescriptions: No Action furosemide 40 mg Tablet 40 mg PO BID atorvastatin 80 mg Tablet 80 mg PO DAILY acetaminophen 325 mg Tablet 650 mg PO PRN PRN metoprolol succinate 200 mg Tablet Extended Release 24 Hr 200 mg PO DAILY isosorbide mononitrate 30 mg Tablet Extended Release 24 Hr 30 mg PO DAILY aspirin [Aspir-Low] 81 mg Tablet,Delayed Release (Dr/Ec) 81 mg PO DAILY amlodipine 10 mg Tablet 10 mg PO DAILY folic acid 1 mg Tablet 1 mg PO DAILY allopurinol 300 mg Tablet 300 mg PO DAILY omeprazole 20 mg Tablet,Delayed Release (Dr/Ec) 20 mg PO BID apixaban 5 mg Tablet 5 mg PO BID potassium chloride 20 mEq Tablet Extended Release 20 meq PO DAILY Discharge Data Discharge Date/Time-TO BE ENTERED AT DEPARTURE: 12/31/21 23:40 Medical Decision Making <Caroline Go NP - Last Filed: 01/01/22 15:29> Care is to be handed off to oncoming provider EVERETTE Vallejo pending labs and disposition. CBC, uric acid ordered p.o. indomethacin, prednisone and oxycodone. Care expected in transition from nurse Jyothi practitioner at 1600 Leukocytosis noted on CBC white blood cell count 27.34 hemoglobin 9.9 hematocrit 32.8, platelets 677 absolute neutrophils 24.33, uric acid within normal limits. Work-up ordered including CMP, proBNP IV lactate blood cultures. Care is accepted in transition from nurse dorothea Roe, magnesium was noted to be 0.8, this was supplemented with 4 g of magnesium CRP is noted to be 25, BNP of 1168 Urinalysis did not show evidence of acute abnormality Chest x-ray without evidence of infection although there was a leukocytosis with shift concerning Patient has been on prednisone for several days now Time of uncertain of the etiology of the symptoms Tickborne illness would certainly be in the differential He is treated empirically with 2 g of ceftriaxone after blood cultures and lactate were reviewed His repeat lactate is noted to be 1.4 His EKG shows rate controlled atrial fibrillation and he is anticoagulated He has been quite stable in the emergency department Attempt was made to admit patient, however we are capacity at this time Attempt was made to [facility] to the [place] [facility], however they were also at capacity Numerous hospitals were called in the surrounding area, however there is no availability to take the patient in [facility] have agreed to accept the patient for admission at this time Patient was reassessed and will be treated with another tablet of oxycodone for discomfort and for transport process of He will also receive another 500 cc of fluid prior to consultation He is fully alert, oriented, of decisional capacity He has full CODE STATUS He declines any additional needs at this time and his vitals are stable and he is remained stable throughout the entirety of this encounter <EVERETTE Vallejo - Last Filed: 12/31/21 23:17> CBC, uric acid ordered p.o. indomethacin, prednisone and oxycodone. Care expected in transition from Kayli Brown nurse practitioner at 1600 Leukocytosis noted on CBC white blood cell count 27.34 hemoglobin 9.9 hematocrit 32.8, platelets 677 absolute neutrophils 24.33, uric acid within normal limits. Work-up ordered including CMP, proBNP IV lactate blood cultures. Care is accepted in transition from Kayli Brown nurse dorothea, magnesium was noted to be 0.8, this was supplemented with 4 g of magnesium CRP is noted to be 25, BNP of 1168 Urinalysis did not show evidence of acute abnormality Chest x-ray without evidence of infection although there was a leukocytosis with shift concerning Patient has been on prednisone for several days now Time of uncertain of the etiology of the symptoms Tickborne illness would certainly be in the differential He is treated empirically with 2 g of ceftriaxone after blood cultures and lactate were reviewed His repeat lactate is noted to be 1.4 His EKG shows rate controlled atrial fibrillation and he is anticoagulated He has been quite stable in the emergency department Attempt was made to admit patient, however we are capacity at this time Attempt was made to transfer [facility] to the [place] [facility], however they were also at capacity Numerous hospitals were called in the surrounding area, however there is no availability to take the patient in [facility] have agreed to accept the patient for admission at this time Patient was reassessed and will be treated with another tablet of oxycodone for discomfort and for transport process of He will also receive another 500 cc of fluid prior to consultation He is fully alert, oriented, of decisional capacity He has full CODE STATUS He declines any additional needs at this time and his vitals are stable and he is remained stable throughout the entirety of this encounter HPI <Caroline Go NP - Last Filed: 01/01/22 15:29> General Mode of arrival: wheelchair . Date/Time Provider Initiated Documentation: 12/31/21 12:06 . Limitations to Documentation: no limitations . Information obtained by: patient and RN notes reviewed . HPI Narrative: 76-year-old male presents to the ER with chief complaint of body pain which is chronic. Patient was admitted at [facility] on December 02 for gout. He does take allopurinol daily and Tylenol. He was recently on prednisone which she finished taking. He reports that he is having problems with mobility due to the pain. He does have a past medical history cholesterol, hypertension, gouty arthritis, GERD. Related Data Home Medications Medication Instructions Recorded Confirmed acetaminophen 325 mg tablet 650 mg PO PRN PRN 12/31/21 12/31/21 allopurinol 300 mg tablet 300 mg PO DAILY 12/31/21 12/31/21 amlodipine 10 mg tablet 10 mg PO DAILY 12/31/21 12/31/21 apixaban 5 mg tablet 5 mg PO BID 12/31/21 12/31/21 aspirin 81 mg tablet,delayed 81 mg PO DAILY 12/31/21 12/31/21 release atorvastatin 80 mg tablet 80 mg PO DAILY 12/31/21 12/31/21 folic acid 1 mg tablet 1 mg PO DAILY 12/31/21 12/31/21 furosemide 40 mg tablet 40 mg PO BID 12/31/21 12/31/21 isosorbide mononitrate 30 mg 30 mg PO DAILY 12/31/21 12/31/21 tablet,extended release 24 hr metoprolol succinate 200 mg 200 mg PO DAILY 12/31/21 12/31/21 tablet,extended release 24 hr omeprazole 20 mg tablet,delayed 20 mg PO BID 12/31/21 12/31/21 release potassium chloride 20 mEq 20 meq PO DAILY 12/31/21 12/31/21 tablet,extended release General Stated Complaint: GenMedical VINCENT: 3 Review of Systems <Caroline Go NP - Last Filed: 01/01/22 15:29> All systems reviewed & are unremarkable except as noted in HPI and below Constitutional Constitutional: Denies chills and Denies fever(s) Musculoskeletal Musculoskeletal: Reports as per HPI, Reports abnormal gait and Reports arthralgias Neurologic Neurologic: Reports abnormal gait PFS <Caroline Go NP - Last Filed: 01/01/22 15:29> Social History Smoking/Tobacco Use Status: Former Tobacco Use Smoking risk assessment performed?: Yes Alcohol Intake: former Drug use: Never Substance use type: does not use Do you feel safe at home: Yes Do you feel safe in your relationship?: Yes Exam <Caroline Go NP - Last Filed: 01/01/22 15:29> Narrative Exam Narrative: Constitutional: Alert and oriented x3. Appears stated age. Normal body habitus. Head: Normocephalic, no trauma. Eyes: Pupils PERRL, Red reflex noted, EOM's intact. Eyelids symmetrical without lesions, discharge, or swelling. ENT: Bilateral TM's WNL, External ear normal to inspection, no mastoid TTP, swelling, or erythema, Nasal turbinates WNL, no nasal discharge. Normal dentition, Posterior pharynx WNL, no exudate. Chest: Tachycardic at a rate of 140 normal S1, S2, distal pulses intact. Resp: Lungs clear to auscultation bilaterally, no wheezes, rales, or rhonchi. Abdomen: Soft, non-distended, Normoactive bowel sounds all 4 quads. Musculoskeletal: Unable to assess gait, he is wearing a walking boot on his right lower extremity. Skin: No suspicious rashes or lesions. Capillary refill less than 2 sec. Neurologic: Cranial nerves II-XII intact. Alert and oriented x 3. Motor: No d eficits noted. Sensory: Intact bilaterally all 4 extremities. Reflexes: DTR's intact bilaterally.. Hematologic/Lymphatic: No ecchymosis, no lymphadenopathy. Course <Caroline Go NP - Last Filed: 01/01/22 15:29> Vital Signs Vital signs: Vital Signs Temperature 37 C 12/31/21 12:17 Pulse 107 H 12/31/21 12:17 Respiratory Rate 20 12/31/21 12:17 Blood Pressure 127/61 12/31/21 12:17 Pulse Oximetry 95 12/31/21 12:17 Temperature 37 C 12/31/21 12:17 Temperature Source Temporal Artery Scan 12/31/21 12:17 Pulse 107 H 12/31/21 12:17 Respiratory Rate 20 12/31/21 12:17 Blood Pressure 127/61 12/31/21 12:17 Blood Pressure Position Sitting 12/31/21 12:17 Pulse Oximetry 95 12/31/21 12:17 Oxygen Delivery Method Room Air 12/31/21 12:17 Oxygen Flow Rate 0 12/31/21 12:17 Sign Out <Caroline Go NP - Last Filed: 01/01/22 15:29> Sign Out Data: Sign Out Comment: Pending labs and further eval. WBC 28, Here with poly arthralgia which is chronic. Hx of Gout. [facility] [place] [facility] Given Oxycodone, Prednisone, and Indomethacin. Swelling, decreased mobility due to pain. Last updated by Caroline Go NP at 12/31/21 15:57
--- OUTSIDE RECORDS SUMMARY | 2021-12-31 13:14 | XMS_ITS | Encounter Summary ---
:1945 Author Organization [facility] Address [address] [place] [id number] Support Name Relationship Address Phone CATHERINE JORGENSEN Unavailable [address] [place] [address] COLEMAN, DAUGHTER Unavailable Unavailable Insurance Providers: All [...] MEDICARE MEDICARE PART Oct 22, PART A [id number] [phone] DAVIGN ON, PATIENT (WNR) (M) A 2011 UP35 1 RUPERT MEDICARE MEDICARE PART Oct 22, PART A [id number] [phone] WILIAMIGN ON, PATIENT (WNR) (M) A 2011 52A 00 RUPERT Selected Encounter This section includes the information on record at ID for the Encounter. Date/Time Encounter Type Encounter Reason Provider Source Description Dec 23, 2021 HC PRO PHONE TELEPHONE TRIAGE ICD-10-CM Z71.89 DIMA DOMINGO 06:45 AM CALL 5-10 MIN Other specified counseling with Provider Comments: Other specified counseling IHE Encounter Template Text not used by [facility] Assessments - Encounter Diagnoses This section includes the primary and secondary diagnoses documented for the Encounter. Date/Time Primary/Secondary Diagnosis Name Provider Source Diagnosis Dec 23, 2021 PRIMARY Other specified BRODY DOMINGO 06:45 AM counseling [place] [facility] Dec 23, 2021 SECONDARY Other specified [facility] 06:45 AM counseling R [facility] Plan of Treatment: Future Appointments (+ 6 months) and Future Tests (+/- 45 days) The Plan of Treatment section includes future care activities for the patient from all [facility]. This section includes future appointments and future orders which are active, pending orscheduled.Future Appointments This section includes appointments that were scheduled to occur 6 months from the date of the Encounter, up to a maximum of 20 appointments. The data comes from all [facility]. Appointment Date/Time Appointment Type Appointment Facili ty Name Dec 24, 2021 01:00 PM [facility] Dec 28, 2021 02:30 PM AMBULATORY - MEDICINE [facility] Dec 28, 2021 02:31 PM [facility] - NONE [facility] Jan 18, 2022 11:30 AM [facility] May 03, 2022 01:00 PM AMBULATORY MEDICINE [facility] Active, Pending, and Scheduled Orders This section includes a listing of several types of active, pending, and scheduled orders, including clinic medications orders, diagnostic test orders, procedure orders and consult orders; where the start date of the order is 45 days before the date of the Encounter or 45 days after the date of the Encounter. The data comes from all [facility]. Test Date/Time Test Type Test Details Facility Name Dec 23, 2021 03:18 AM Consult Order PHYSICAL THERAPY-FALL [facility] Danielle [facility] OUTPT Cons Emergency Room Dec 23, 2021 03:48 AM Consult Order COMMUNITY CARE-ORTHOPEDICS DM [facility] Cons Pile Header's Choice Vital Signs: All taken on the encounter date This section contains inpatient and outpatient Vital Signs collected on the date of the Encounter. Date/Time Temperature Pulse Blood Respiratory SP02 Pain Height Weight Eugenio dy Source Pressure Rate Mass Index Dec 232021 03:17 [facility] Dec 232021 02:13 [facility] Dec 23, 97.8 F 102 157/100 20 /min 95 % 10 62 in 216 lb 40 2021 02:09 /min mm[Hg] [facility] Social History: Smoking Status (Most current) and [...] took place. Date/Time Current Smoking Status Comment [facility] Dec 23, 2021 02:04 AM LIFETIME NON-TOBACCO USER DM YMERST [facility] Tobacco Use History This section includes a history of the smoking, or tobacco- related health factors, that were collected on or before the date of the Encounter. The data comes from the ID facility where the Encounter took place. Date/Time Smoking Status/Tobacco Use Comment [facility] September 10, 2021 11:25 AM QUIT TOBACCO USE > 7 YEARS [place] A[place] [facility] Dec 19, 2017 11:42 AM QUIT TOBACCO USE > 7 YEARS [place] A[place] Former user of tobacco products quit 27 yrs ago [facility] Oct 26, 2016 09:17 AM QUIT TOBACCO USE > 7 YEARS [place] A[place] [facility] Jan 07, 2016 09:58 AM QUIT TOBACCO USE > 7 YEARS [place] A[place] [facility] September 09, 2008 10:31 AM QUIT TOBACCO USE > 7 YEARS [place] A[place] 8 yrs. [facility] August 29, 2007 08:57 AM QUIT TOBACCO USE 1-7 YEARS [place] A[place] [facility] Feb 22, 2007 11:44 AM QUIT TOBACCO USE IN PAST [place] YEAR [facility] August 28, 2006 12:57 PM QUIT TOBACCO USE 1-7 YEARS [place] A[place] 5 yrs. ago [facility] August 22, 2005 10:55 AM QUIT TOBACCO USE 1-7 YEARS [place] A[place] quit 4 yr ago [facility] August 27, 2004 01:30 PM HISTORY OF SMOKING DM [place] 12/25 [facility] August 27, 2004 01:30 PM QUIT TOBACCO USE IN PAST [place] YEAR 2 years [facility] Dec 19, 2003 01:13 PM QUIT TOBACCO USE IN PAST [place] YEAR [facility] September 05, 2003 02:45 PM HISTORY OF SMOKING [place] quit 12/25 [facility] September 05, 2003 02:45 PM QUIT TOBACCO USE IN PAST [place] YEAR quit 12/26 [facility] Mar 27, 2002 11:07 AM CURRENT SMOKER [place] Pt. smokes 1 ppd. [facility] Mar 14, 2001 03:27 PM [place] [facility] Advance Directives: All historical and [...] 06, [address] FR[address] CT [facility] Radiology Reports: +/- 30 days [...] the Encounter. The data comes from all ID treatment facilities. Date/Time Radiology Report Provider Source Dec 28, 2021 06:25 PM UNLISTED COPIES FOR OUTSIDE REFERRAL: DM COOK LOBO WILSONRUPERT ÁLVAREZ SHIVANI [id number] -1945 [facility] Exm Date: DEC 28, 2021@18:25 Req Phys: GOLDY BRASHER Pat Loc: [facility] MISC GEN XRAY B1RC (Req'g Img Loc: OUTSIDE GENERAL RADIOLOGY Service: Unknown (Case [id number] COMPLETE) UNLISTED COPIES FOR OUTSIDE REFER(RAD Detailed) CPT:74410 Reason for Study: UNLISTED COPIES FOR OUTSIDE R EFERRAL Clinical History: UNLISTED COPIES FOR OUTSIDE REFERRAL. [place] [facility] [id number]. S[place] BY JEFF [place] [facility] [place] Report Status: Electronically Filed Date Report ed: Report: Copies (CD) made for outside facility. Impression: Copies (CD) made for outside facility Primary Diagnostic Code: VERIFIED BY: / *ELECTRONICALLY FILED* Dec 23, 2021 02:18 AM WRIST 3 VIEWS (ROUTINE): RADIOLOGY,OUTSIDE DM MYERSChristian RUPERT JORGENSENO [id number] -1945 M SERVICE [facility] Exm Date: DEC 23, 2021@02:18 Req Phys: KOSTA PHILLIP Pat Loc: [facility] ED NIGHTS M1RD (Req'g Loc) Img Loc: XRAY (OOS) Service: Unknown (Case [id number] COMPLETE) WRIST 3 VIEWS (ROUTINE) (RAD Detailed) CPT:82321 Proc Modifiers : RIGHT Reason for Study: distal ulna pain after fall Clinical History: Report Status: Verified Date Reported: DEC 23, 2021 Date Verified: DEC 23, 2021 Cardiology Teacher E-Sig: Report: WRIST 3 VIEWS (ROUTINE) HISTORY: distal ulna pain after fall COMPARISON: 09/23/2016 right hand radiographs TECHNIQUE: 4 view(s) of the right wrist, submit berhane to the ID National Teleradiology Program (NTP) for interp retation. [...] for scapholunate ligament injury/tear. READING PHYSICIAN: Hansel Pwoell -[id number] 12/22/2021 20:56 [facility] National Teleradiology Program [phone] (For Medical Practitioner Use Only ) Attention Patients / Veterans: If you have ques tions or concerns about these test results, please contact your [facility] provider or primary care team. Primary Diagnostic Code: SIGNIFICANT ABNORMALIT Y, ATTN NEEDED Primary Interpreting Staff: RADIOLOGY,OUTSIDE SERVICE, Staff Physician / Encounter Notes: All associated encounter notes This section contains the clinical notes associated to the Encounter. Date/Time Encounter Note(s) Provider Source Dec 23, 2021 06:45 AM TELEPHONE ENCOUNTER NOTE: BRODY DOMINGO [facility] STANDARD TITLE: TELEPHONE ENCOUNTER NOTE DATE OF NOTE: DEC 23, 2021@06:45:27 ENTRY DATE: DEC 23, 2021@06:54:11 AUTHOR: BRODY DOMINGO EXP COSIGNER: URGENCY: STATUS: COMPLETED Type of call: CLINICAL INFORMATION/EDUCATION. OTHER called in for RUPERT JORGENSEN ([id number]) . The following identifiers were used to verify th is patient: . SSN. Contact Phone Number: Caller Response: ADM CALL RESOLVED Caller Area: * [facility] Comments: inquiring about vet Author: BRODY DOMINGO Evaluation/Management Code: HC PRO PHONE CALL 5- 10 MIN ([phone]). Starting at: 12/23/2021 @ 6:45:27 AM Ending at: 12/23/2021 @ 6:50:46 AM Length: 5 minutes. Chief Complaint: Not applicable to call. Nurse Notes: Yolette's granddaughter Zahida Jorgensen reported yolette fell and his was taking him to [facility] ER. She is inquir ing if vet arrived in the ER. Yolette's does not have a cell phone for her to call and find out. Spoke with a staff in the [facility] ER and was informed yolette's took him to [facility]. Granddaughter made aware Class Code: Other specified counseling. Patient/Caller agrees with plan. /almaz/ BRODY BOLANOSN2 CCC RN Signed: 12/23/2021 06:54 Dec 23, 2021 06:45 AM TELEPHONE ENCOUNTER NOTE: BRODY DOMINGO [facility] LOCAL TITLE: [facility] 1 CLINICAL CONTACT CENTER STANDARD TITLE: TELEPHONE ENCOUNTER NOTE DATE OF NOTE: DEC 23, 2021@06:45:27 ENTRY DATE: DEC 23, 2021@06:55:23 AUTHOR: BRODY DOMINGO EXP COSIGNER: URGENCY: STATUS: COMPLETED Type of call: CLINICAL INFORMATION/EDUCATION. OTHER called in for RUPERT JORGENSEN ([id number]) . The following identifiers were used to verify th is patient: . SSN. Contact Phone Number: Caller Response: ADM CALL RESOLVED Caller Area: * [facility] Comments: inquiring about vet Author: BRODY DOMINGO Evaluation/Management Code: HC PRO PHONE CALL 5- 10 MIN ([phone]). Starting at: 12/23/2021 @ 6:45:27 AM Ending at: 12/23/2021 @ 6:51:26 AM Length: 5 minutes. Chief Complaint: Not applicable to call. Nurse Notes: Yolette's granddaughter Zahida Jorgensen reported yolette fell and his was taking him to [facility] ER. She is inquir ing if genat arrived in the ER. Genat's does not have a cell phone for her to call and find out. Spoke with a staff in the [facility] ER and was informed yolette's took him to [facility]. Granddaughter made aware Class Code: Other specified counseling. Patient/Caller agrees with plan. /almaz/ BRODY VALENCIA CCC RN Signed: 12/23/2021 06:55
--- OUTSIDE RECORDS SUMMARY | 2021-12-31 13:15 | XMS_ITS | Encounter Summary ---
:1945 Author Organization [facility] Address [address] [place] [address] Support Name Relationship Address Phone CATHERINE JORGENSEN Unavailable [address] [phone] [place] [address] COLEMAN, DAUGHTER Unavailable Unavailable Insurance Providers: All [...] MEDICARE MEDICARE PART Oct 22, PART A [id number] WILIAMIGN ON, PATIENT (WNR) (M) A 2011 UP35 1 RUPERT MEDICARE MEDICARE PART Oct 22, PART A [id number] [id number] KATIE ON, PATIENT (WNR) (M) A 2011 52A 00 RUPERT Selected Encounter This section includes the information on record at NH for the Encounter. Date/Time Encounter Type Encounter Reason Provider Source Description Dec 24, 2021 HC PRO PHONE TELEPHONE PRIMARY ICD-10-CM Z71.89 KALI TINOCO 01:00 PM CALL 11-20 MIN CARE Other specified counseling with Provider Comments: Counseling,Oth Specified IHE Encounter Template Text not used by NH Assessments - Encounter Diagnoses This section includes the primary and secondary diagnoses documented for the Encounter. Date/Time Primary/Secondary Diagnosis Name Provider Source Diagnosis Dec 24, 2021 PRIMARY Other specified KALI TINOCO [facility] 01:00 PM counseling CLINIC Plan of Treatment: Future Appointments (+ 6 months) and Future Tests (+/- 45 days) The Plan of Treatment section includes future care activities for the patient from all NH treatmentfacilities. This section includes future appointments and future orders which are active, pending orscheduled.Future Appointments This section includes appointments that were scheduled to occur 6 months from the date of the Encounter, up to a maximum of 20 appointments. The data comes from all [facility]. Appointment Date/Time Appointment Type Appointment Facili ty Name Dec 28, 2021 02:30 PM AMBULATORY - MEDICINE DM [facility] Dec 28, 2021 02:31 PM AMBULATORY - NONE [facility] Jan 18, 2022 11:30 AM AMBULATORY - MEDICINE [facility] May 03, 2022 01:00 PM AMBULATORY - MEDICINE [facility] Active, [...] the Encounter. The data comes from all [facility]. Test Date/Time Test Type Test Details Facility Name Dec 23, 2021 03:18 AM Consult Order PHYSICAL THERAPY-[facility]ALL [facility] OUTPT Cons Emergency Room Dec 23, 2021 03:48 AM Consult Order COMMUNITY CARE-ORTHOPEDICS DM [facility] GENERAL Cons Firefighter Type [employer] Social History: Smoking Status (Most current) and Tobacco Use (All prior to encounter date) This section includes the most current, and the historical, smoking and tobacco-related health factors from the NH facility where the Encounter took place.Current Smoking Status This section includes the most current smoking, or tobacco-related health factor, from the NH facility where the Encounter took place. Date/Time Current Smoking Status Comment Facility Oct 26, 2021 11:00 AM VA-TOBACCO FORMER USER [facility] Tobacco Use History This section includes a history of the smoking, or tobacco- related health factors, that were collected on or before the date of the Encounter. The data comes from the NH facility where the Encounter took place. Date/Time Smoking Status/Tobacco Use Comment [facility] Oct 26, 2021 11:00 AM VA-TOBACCO QUIT 15 YRS OR MORE [facility] Nov 16, 2020 10:30 AM VA-TOBACCO FORMER USER [facility] Nov 16, 2020 10:30 AM VA-TOBACCO QUIT 15 YRS OR MORE [facility] September 06, 2018 11:34 AM VA-TOBACCO FORMER USER [facility] September 06, 2018 11:34 AM VA-TOBACCO QUIT 15 YRS OR MORE [facility] Advance Directives: All historical and current Section Date Range: From patient's date of to the date document was created. This section includes ALL of a patient's completed or amended NH Advance and Rescinded Directives. The entries below indicate that a directive exists for the patient, but an actual copy is not included with this document. The data comes from all NH facilities. Date Advance Directives Provider Source Apr 06, 2010 ADVANCE DIRECTIVE SVETLANA FRANK DM COOK Karen CT [facility] Radiology [...] the Encounter. The data comes from all NH treatment facilities. Date/Time Radiology Report Provider Source Dec 28, 2021 06:25 PM UNLISTED COPIES FOR OUTSIDE REFERRAL: DM JOYCE [place] RUPERT JORGENSEN [id number] -1945 [facility] Exm Date: DEC 28, 2021@18:25 Req Phys: GOLDY BRASHER Pat Loc: [facility] MISC GEN XRAY B1RC (Req'g Img Loc: OUTSIDE GENERAL RADIOLOGY Service: Unknown (Case [id number] COMPLETE) UNLISTED COPIES FOR OUTSIDE REFER(RAD Detailed) CPT:17770 Reason for Study: UNLISTED COPIES FOR OUTSIDE R EFERRAL Clinical History: UNLISTED COPIES FOR OUTSIDE REFERRAL. REQUESTED BY [facility]. [id number]. SENT BY JEFF TO [facility] 12/29/21 Report Status: Electronically Filed Date Report ed: Report: Copies (CD) made for outside facility. Impression: Copies (CD) made for outside facility Primary Diagnostic Code: VERIFIED BY: / *ELECTRONICALLY FILED* Dec 23, 2021 02:18 AM WRIST 3 VIEWS (ROUTINE): RADIOLOGY,OUTSIDE [place] RUPERT JORGENSEN [id number] -1945 M SERVICE [facility] Exm Date: DEC 23, 2021@02:18 Req Phys: KENJIKOSTA Karen Stratton Loc: [facility]IGHT[facility] M1RD (Req'g Loc) Img Loc: XRAY (OOS) Service: Unknown (Case [id number] COMPLETE) WRIST 3 VIEWS (ROUTINE) (RAD Detailed) CPT:32497 Proc Modifiers : RIGHT Reason for Study: distal ulna pain after fall Clinical History: Report Status: Verified Date Reported: DEC 23, 2021 Date Verified: DEC 23, 2021 Snack Bar Cashier E-Sig: Report: WRIST 3 VIEWS (ROUTINE) HISTORY: distal ulna pain after fall COMPARISON: 09/23/2016 right hand radiographs TECHNIQUE: 4 view(s) of the right wrist, submit berhane to the [place] National Teleradiology Program (NTP) for interp retation. [...] scapholunate ligament injury/tear. READING PHYSICIAN: Hansel Powell -[id number] 12/22/2021 20:56 [facility] National Teleradiology Program [phone] (For Medical Practitioner Use Only ) Attention Patients / Veterans: If you have ques tions or concerns about these test results, please contact your [facility] provider or primary care team. Primary Diagnostic Code: SIGNIFICANT ABNORMALIT Y, ATTN NEEDED Primary Interpreting Staff: RADIOLOGY,OUTSIDE SERVICE, Staff Physician / Encounter Notes: All associated encounter notes This section contains the clinical notes associated to the Encounter. Date/Time Encounter Note(s) Provider Source Dec 24, 2021 01:09 PM PRIMARY CARE TELEPHONE ENCOUNTER NOTE: KALI AMES [facility] LOCAL TITLE: Telephone Note-Primary Care STANDARD TITLE: PRIMARY CARE TELEPHONE ENCOUNTER NOTE DATE OF NOTE: DEC 24, 2021@13:09 ENTRY DATE: DEC 24, 2021@13:10:05 AUTHOR: KALI TINOCOIGNER: URGENCY: STATUS: COMPLETED Telephone Note-Primary Care Has ADDENDA This nurse spoke with patient for scheduled tele phone visit to follow up on Lower extremity edema and gout flare Difficult historian Report of recent fall, was seen at [facility] orthopedics yesterday. Reports Right wrist injury/fracture, (request fo r records pending) Did not have surgery yesterd ay, returns to [facility] on Monday for repeat imaging to determine is surgery is indicated. Reports leg, feet and edema is improving, not re solved Left shoulder gout flare continues to cause a lo t of pain, difficulty lifting left arm. Tolerating prednisone richard, patient does not feel he is having the relief he expected with prednisone. Please place Mr. Jorgensen in the Acute care clinic schedule for November 27, 2021 at 2:30 visit. Advised to nelson edwards at 2:15. Patient is aware and in agreement with plan of care. /almaz/ KALI TINOCO Registered Nurse Signed: 12/24/2021 13:55 Receipt Acknowledged By: 12/30/2021 12:59 /es/ MATTHEW TIRADO LPN 12/24/2021 14:05 /es/ TONY DANGELO 12/24/2021 15:15 /es/ GABRIELA ABERNATHY 12/24/2021 15:42 /es/ ODILON BATRES D.O. for BRENDA SANCHEZ 12/24/2021 ADDENDUM STATUS: COMPLETED notes requested for 12/23 [facility], appt added to ABEL cheema /almaz/ TONY SANCHEZ AMSAyla Signed: 12/24/2021 14:05 12/24/2021 ADDENDUM STATUS: COMPLETED TW scheduled this into the [facility] Resident clinic on Monday12/28/21 at 230pm with the Residents, Celso Dhaliwal (PRECEPTOR) and an onsite Nurse or HT, as a (CVT)DX80/TEAMS virtual clinic with [facility] CART# [id number]. This proposal writer will alert the Nurse on site to make them aware for scheduling on their end. Date/time negotiated between Triage Nurse and Patient - See attached nurses note for further details if needed. /es/ GABRIELA BRODY MICHELA Signed: 12/24/2021 15:12 Receipt Acknowledged By: 12/24/2021 15:29 /es/ KALI TINOCO Registered Nurse 12/28/2021 ADDENDUM STATUS: COMPLETED notes received, placed for review /es/ TONY DANGELO Signed: 12/28/2021 07:57 Receipt Acknowledged By: 12/30/2021 11:36 /es/ KAREN ALMONTE Intermediate Fast Food Sales Assistant 12/28/2021 ADDENDUM STATUS: COMPLETED Dinuba's presented to [facility] to let us know that she was not able to bring in for appointment maría lisa. She had declined help with transportation last week as we had try to help w ith that. She says he is not doing well. Very weak. Arm pain and leg pain and is asking if another r ound of prednisone could be prescribed to get him out of this. /es/ OLIVER SAUCEDA Signed: 12/28/2021 14:40 Receipt Acknowledged By: 12/28/2021 15:48 /es/ VIVIANA SANCHEZ MD Staff Physician 12/30/2021 13:00 /es/ MATTHEW TIRADO LPN * AWAITING SIGNATURE * SARAH DUPONT V * AWAITING SIGNATURE * KALI TINOCO 12/28/2021 ADDENDUM STATUS: COMPLETED Requesting RNs please triage . Needs clinical evaluation. Question is ER vs acute slot in clinic. I could see him next week Monday or Monday, but he may need ER services. /es/ VIVIANA SANCHEZ MD Staff Physician Signed: 12/28/2021 15:49 12/29/2021 ADDENDUM STATUS: COMPLETED Attempted to reach out to Mr Jorgensen. No answer, no voice mail to leave message. /es/ KALI TINOCO Registered Nurse Signed: 12/29/2021 15:00 12/30/2021 ADDENDUM STATUS: COMPLETED Dinuba's called. [phone]. She is also asking about a wheelchair /es/ OLIVER SAUCEDA Signed: 12/30/2021 11:52 Receipt Acknowledged By: * AWAITING SIGNATURE * KALI TINOCO 12/30/2021 ADDENDUM STATUS: COMPLETED This nurse spoke with Mrs. Jorgensen on behalf of . Patient yelling throughout phone call in the [facility]. Report Mr. Jorgensen sits in a recliner 14/11 They both express frustration from current state of health for Mr. Jorgensen. They report ongoing gout fla res pain to right elbow, hands and fingers swelling. Ongoing request for extended or renewal of predn isone. Edema to feet, ankles and legs extending to knees are reported as severe. Does report to be using Furosemide 40 mg BID, with el evation throughout the day. Reports wearing compression stockings. They report patient was seen by [facility] orthopedics on 12/30/2021, had repeat x ray, hard cast applied for right wrist fracture. Will return in another 2 weeks. Patient expresses frustration limiting his alrea dy difficulty ability to ambulate since wrist fx. Request are the following from . Wheelchair david for on Monday Referral/consult to GOUT team at [facility] This nurse request PCP to speak with patient and as they are not able to come to office at this time for further management of care with current physical limitations. /almaz/ KALI TINOCO Registered Nurse Signed: 12/31/2021 07:25 Receipt Acknowledged By: * AWAITING SIGNATURE * BRENDA SANCHEZ
--- OUTSIDE RECORDS SUMMARY | 2021-12-31 13:15 | XMS_ITS | Encounter Summary ---
:1945 Author Organization [facility] Address [address] [place] [address] Support Name Relationship Address Phone CATHERINE JORGENSEN Unavailable [address] [phone] [place] [address] COLEMAN, DAUGHTER Unavailable Unavailable Insurance Providers: All [...] MEDICARE MEDICARE PART Oct 22, PART A [id number] DAVIGN ON, PATIENT (WNR) (M) A 2011 UP35 1 [place] MEDICARE MEDICARE PART Oct 22, PART A [id number] [id number] WILIAMIGN ON, PATIENT (WNR) (M) A 2011 52A 00 [place] Selected Encounter This section includes the information on record at OR for the Encounter. Date/Time Encounter Type Encounter Description Reason Provider Source Dec 28, 2021 02:30 Outpatient Encounter PRIMARY CARE/MEDICINE PM IHE Encounter [...] Date/Time Appointment Type Appointment Facili ty Name Jan 18, 2022 11:30 AM AMBULATORY - MEDICINE [facility] May 03, 2022 01:00 PM AMBULATORY - MEDICINE [facility] Active, Pending, and Scheduled [...] the Encounter. The data comes from all [place] treatment facilities. Test Date/Time Test Type Test Details Facility Name Dec 23, 2021 03:18 AM Consult Order PHYSICAL THERAPY-[place] [facility] OUTPT Cons Emergency Room Dec 23, 2021 03:48 AM Consult Order COMMUNITY CARE-ORTHOPEDICS [facility] Cons Park Recreation Manager's Choice Social History: Smoking Status (Most current) [...] 23, 2021 02:04 AM LIFETIME NON-TOBACCO USER [facility] Tobacco Use History This section includes a history of the smoking, or tobacco- related health factors, that were collected on or before the date of the Encounter. The data comes from the OR facility where the Encounter took place. Date/Time Smoking Status/Tobacco Use Comment [facility] September 10, 2021 11:25 AM QUIT TOBACCO USE > 7 YEARS [place] A[place] [facility] Dec 19, 2017 11:42 AM QUIT TOBACCO USE > 7 YEARS [place] A[place] Former user of tobacco products quit 27 yrs ago [facility] Oct 26, 2016 09:17 AM QUIT TOBACCO USE > 7 YEARS [place] A[place] [facility] Jan 07, 2016 09:58 AM QUIT TOBACCO USE > 7 YEARS [place] A[place] [facility] September 09, 2008 10:31 AM QUIT TOBACCO USE > 7 YEARS [place] AGO 8 yrs. [facility] August 29, 2007 08:57 AM QUIT TOBACCO USE 1-7 YEARS [place] A[place] [facility] Feb 22, 2007 11:44 AM QUIT TOBACCO USE IN PAST [place] YEAR [facility] August 28, 2006 12:57 PM QUIT TOBACCO USE 1-7 YEARS [place] A[place] 5 yrs. ago [facility] August 22, 2005 10:55 AM QUIT TOBACCO USE 1-7 YEARS [place] A[place] quit 4 yr ago [facility] August 27, 2004 01:30 PM HISTORY OF SMOKING [place] 12/25 [facility] August 27, 2004 01:30 PM QUIT TOBACCO USE IN PAST [place] YEAR 2 years [facility] Dec 19, 2003 01:13 PM QUIT TOBACCO USE IN PAST [place] YEAR [facility] September 05, 2003 02:45 PM HISTORY OF SMOKING [place] quit 12/25 [facility] September 05, 2003 02:45 PM QUIT TOBACCO USE IN PAST [place] YEAR quit 12/26 [facility] Mar 27, 2002 11:07 AM CURRENT SMOKER [place] Pt. smokes 1 ppd. [facility] Mar 14, 2001 03:27 PM CURRENT SMOKER [place] [facility] Advance Directives: All historical and current Section [...] ADVANCE DIRECTIVE SVETLANA FRANK DM [place] CT [facility] Radiology Reports: +/- 30 days of the [...] the Encounter. The data comes from all [place] treatment facilities. Date/Time Radiology Report Provider Source Dec 28, 2021 06:25 PM UNLISTED COPIES FOR OUTSIDE REFERRAL: RUPERT TERAN [id number] -1945 [facility] Exm Date: DEC 28, 2021@18:25 Req Phys: GOLDY BRASHER Pat Loc: [facility] MISC GEN XRAY B1RC (Req'g Img Loc: OUTSIDE GENERAL RADIOLOGY Service: Unknown (Case [id number] COMPLETE) UNLISTED COPIES FOR OUTSIDE REFER(RAD Detailed) CPT:92912 Reason for Study: UNLISTED COPIES FOR OUTSIDE R EFERRAL Clinical History: UNLISTED COPIES FOR OUTSIDE REFERRAL. REQUESTED BY [facility]. [id number]. SENT BY JEFF TO [facility] 12/29/21 Report Status: Electronically Filed Date Report ed: Report: Copies (CD) made for outside facility. Impression: Copies (CD) made for outside facility Primary Diagnostic Code: VERIFIED BY: / *ELECTRONICALLY FILED* Dec 23, 2021 02:18 AM WRIST 3 VIEWS (ROUTINE): RADIOLOGY,OUTSIDE [facility] RUPERT JORGENSEN [id number] -1945 M SERVICE [facility] Exm Date: DEC 23, 2021@02:18 Req Phys: KOSTA PHILLIP Pat Loc: [facility] ED NIGHTS M1RD (Req'g Loc) Img Loc: XRAY (OOS) Service: Unknown (Case [id number] COMPLETE) WRIST 3 VIEWS (ROUTINE) (RAD Detailed) CPT:20561 Proc Modifiers : RIGHT Reason for Study: distal ulna pain after fall Clinical History: Report Status: Verified Date Reported: DEC 23, 2021 Date Verified: DEC 23, 2021 Senior Java Engineer E-Sig: Report: WRIST 3 VIEWS (ROUTINE) HISTORY: distal ulna pain after fall COMPARISON: 09/23/2016 right hand radiographs TECHNIQUE: 4 view(s) of the right wrist, submit berhane to the [place] National Teleradiology Program (NTP) for interp retation. [...] scapholunate ligament injury/tear. READING PHYSICIAN: Hansel Powell -[phone] 12/22/2021 20:56 [facility] National Teleradiology Program [phone] (For Medical Practitioner Use Only ) Attention [...] Encounter. Date/Time Encounter Note(s) Provider Source Dec 28, 2021 12:37 PM PRIMARY CARE URGENT CARE NOTE: [place] LOCAL TITLE: Acute Primary Care Note [facility] STANDARD TITLE: PRIMARY CARE URGENT CARE NOTE DATE OF NOTE: DEC 28, 2021@12:37 ENTRY DATE: DEC 28, 2021@12:37:46 AUTHOR: RUSTY SWAIN EXP COSIGNER: URGENCY: STATUS: COMPLETED Below information was collected/reviewed in preperation for a scheduled CVT [facility]. Patient had not arriv ed at the [facility] by 2:50pm. Was advised that patient had can celled this appointment. Clinic will contact patient re: if he wishes to reschedule. 76 yo man scheduled for CVT visit. Appt schedule d for evaluation of ongoing joint pains. PMH significant for afib on Eliquis, HTN, HLD, GERD, and prior CVA. Presented to ED 09/12 with po lyarthralgias. Eval by rhematology while in the ED. Previous rheumatology eval at the OR on 09/07/16 for polyarthralgias. Workup at the time was notable for negative RF and CCP ant ibodies, although he did have significantly elevated CRP and ESR at 104 and 72 . Bilateral foot/ankle XRs showed no erosions. Symptoms at the time were at tributed to SNRA vs polyarticular gout, he was started on MTX and HC Q. Unfortunately, patient was lost to follow up and it is unclear when exactly he stopped these medications but he has not been on them for quite some time. At his initial visit on 09/07/16 and received bilateral ankle steroid injections. [facility]ished [facility]. Telephone note from 05/20/21 indicates that he had been taking colchicine 0.6 mg daily for a c ouple years but was not on urate-lowering therapy at the time. It a ppears that he had a gout flare in his left ankle in late May/ early June and was treated with a prednisone taper (40 mg x5 days, then 20 mg x 2 days, then 10 mg x2 days, then 5 mg x2 days). His uric acid was 8.6 on 07/07/21 so his PCP initiated him on urate- allopurinol 100 mg daily. Uric acid 7.9 on , allopurinol was increased to 200 mg daily on 08/13. Labs from ED visit 09/12: CRP 68.2, uric acid 6.3, CMP unremarkable, CBC notable for WBC 15.5 and plts 411. XRs bilateral feet/ankles 09/12:No acute fracture or dislocation. Diffuse osseous demineralization bilaterally.Int erval development of a lucent lesion in the medial aspect of the right first metatarsal head, suggestive of a marginal erosion or interval worsening focal oss eous demineralization at this site. No definite punched out erosion or pe riostitis in the feet or ankles. Question tophi adjacent to the lateral a spect of the right first MTP joint region and adjacent to the medial aspect o f the left first MTP region. Rheumatology felt 09/12 presentation was similar to Spring 2016. Gout and seronegative rheumatoid arthritis on differentia l. 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 Receommended consid er short course of Celebrex, agree with initiation and titration of urate-low ering therapy by PCP so far; recommend continued titration of allopurinol to obtain goal uric acid between 4.0 and 5.0, agree with cont inuation of colchicine 0.6 mg daily while uric acid is actively being lowered and agree with planned discontinuation of this medication once goal uric acid level is obtained within 6 months. Note indicate that Mr. Jorgensen reported that he had stopped allopurinol mid October 2021. Admit 12/02-12/05/21 at local hospital. Dx with CHF, Volume Overload, Leukocytosis Gout flare. called last month re: chris francis pain, patient with extreme difficulty walking. Covering MD wrote for vaishnavi rosen 12/21/21-> 40mg x5 days, 20mg x 2 days, 10mg x 2 days, 5mg x2 days. In interrum, eval in ED , s/p fall (mechanical), R wrist fracture (distal radius/ulma). Transferred to [facility] for ortho eval. Notes indicate plan to return Wed for repeat imaging, ? if surgery needed. /almaz/ RUSTY SWAIN MD Staff Signed: 12/28/2021 17:30
--- OUTSIDE RECORDS SUMMARY | 2021-12-31 13:16 | XMS_ITS | Encounter Summary ---
:1945 Author Organization [facility] Address [address] [place] [address] Support Name Relationship Address Phone CATHERINE JORGENSEN Unavailable [address] [place] [address] LISSETH, DAUGHTER Unavailable Unavailable Insurance Providers: All historical [...] MEDICARE MEDICARE PART Oct 22, PART A [id number] DAVIGN ON, PATIENT (WNR) (M) A 2011 UP35 1 [place] MEDICARE MEDICARE PART Oct 22, PART A [id number] [phone] WILIAMIGN ON, PATIENT (WNR) (M) A 2011 52A 00 [place] Selected Encounter This section includes the information on record at [place] for the Encounter. Date/Time Encounter Type Encounter Reason Provider Source Description Dec 31, 2021 10:19 Outpatient TELEPHONE TRIAGE CHARLES TATUM AM Encounter IHE Encounter Template Text not used by [facility] Plan of Treatment: Future Appointments (+ 6 months) and Future Tests (+/- 45 days) The Plan of Treatment section includes future care activities for the patient from all [place] treatmentfacilities. This section includes future appointments and future orders which are active, pending orscheduled.Future Appointments This section includes appointments that were scheduled to occur 6 months from the date of the Encounter, up to a maximum of 20 appointments. The data comes from all [place] treatment facilities. Appointment Date/Time Appointment Type Appointment Facili ty Name Jan 18, 2022 11:30 AM AMBULATORY - MEDICINE [facility] May 03, 2022 01:00 PM AMBULATORY - MEDICINE [facility] Active, Pending, and Scheduled [...] the Encounter. The data comes from all [place] treatment facilities. Test Date/Time Test Type Test Details Facility Name Dec 23, 2021 03:18 AM Consult Order PHYSICAL THERAPY-FALL [place] [facility] OUTPT Cons Emergency Room Dec 23, 2021 03:48 AM Consult Order COMMUNITY CARE-ORTHOPEDICS [facility] Cons Counter Supervisor's Choice Social History: Smoking Status (Most current) and Tobacco Use (All prior to encounter date) This section includes the most current, and the historical, smoking and tobacco-related health factors from the [place] facility where the Encounter took place.Current Smoking Status This section includes the most current smoking, or tobacco-related health factor, from the [place] facility where the Encounter took place. Date/Time Current Smoking Status Comment Facility Dec 23, 2021 02:04 AM LIFETIME NON-TOBACCO USER [facility] Tobacco Use History This section includes a history of the smoking, or tobacco- related health factors, that were collected on or before the date of the Encounter. The data comes from the [place] facility where the Encounter took place. Date/Time Smoking Status/Tobacco Use Comment [facility] September 10, 2021 11:25 AM QUIT TOBACCO USE > [address] [place] [facility] Dec 19, 2017 11:42 AM QUIT TOBACCO USE > 7 YEARS [place] A[place] Former user of tobacco products quit [address] [facility] Oct 26, 2016 09:17 AM QUIT TOBACCO USE > 7 [address] [place] A[place] [facility] Jan 07, 2016 09:58 AM QUIT TOBACCO USE > [address] [place] [address] [facility] September 09, 2008 10:31 AM QUIT TOBACCO USE > 7 YEARS [place] A[place] [address] [facility] August 29, 2007 08:57 AM QUIT TOBACCO USE 1-7 [address] [place] [address] [facility] Feb 22, 2007 11:44 AM QUIT TOBACCO USE IN PAST [place] YEAR [facility] August 28, 2006 12:57 PM QUIT TOBACCO USE 1-7 YEARS [place] [address] [facility] August 22, 2005 10:55 AM QUIT TOBACCO USE 1-7 YEARS [place] A[place] quit [address] [facility] August 27, 2004 01:30 PM HISTORY OF SMOKING [place] 12/25 [facility] August 27, 2004 01:30 PM QUIT TOBACCO USE IN PAST [place] YEAR [address] [facility] Dec 19, 2003 01:13 PM QUIT TOBACCO USE IN PAST [place] YE[place] [facility] September 05, 2003 02:45 PM HISTORY OF SMOKING [place] quit 12/25 [facility] September 05, 2003 02:45 PM QUIT TOBACCO USE IN PAST [place] YEAR quit 12/26 [facility] Mar 27, 2002 11:07 AM CURRENT SMOKER [place] Pt. smokes [address] [facility] Mar 14, 2001 03:27 PM CURRENT SMOKER DM [place] [facility] Advance Directives: All historical and current Section Date Range: From patient's date of to the date document was created. This section includes ALL of a patient's completed or amended [place] Advance and Rescinded Directives. The entries below indicate that a directive exists for the patient, but an actual copy is not included with this document. The data comes from all [place] facilities. Date Advance Directives Provider Source Apr 06, 2010 ADVANCE DIRECTIVE SVETLANA FRANK DM [facility] CT [facility] Radiology Reports: +/- [...] the Encounter. The data comes from all [place] treatment facilities. Date/Time Radiology Report Provider Source Dec 28, 2021 06:25 PM UNLISTED COPIES FOR OUTSIDE REFERRAL: RUPERT TERAN [id number] -1945 [facility] Exm Date: DEC 28, 2021@18:25 Req Phys: GOLDY BRASHER Pat Loc: [facility] MISC GEN XRAY B1RC (Req'g Img Loc: OUTSIDE GENERAL RADIOLOGY Service: Unknown (Case [id number] COMPLETE) UNLISTED COPIES FOR OUTSIDE REFER(RAD Detailed) CPT:60173 Reason for Study: UNLISTED COPIES FOR OUTSIDE R EFERRAL Clinical History: UNLISTED COPIES FOR OUTSIDE REFERRAL. REQUESTED BY [facility]. [id number]. SENT BY JEFF TO [facility] 12/29/21 Report Status: Electronically Filed Date Report ed: Report: Copies (CD) made for outside facility. Impression: Copies (CD) made for outside facility Primary Diagnostic Code: VERIFIED BY: / *ELECTRONICALLY FILED* Dec 23, 2021 02:18 AM WRIST 3 VIEWS (ROUTINE): RADIOLOGY,OUTSIDE [facility] RUPERT JORGENSEN [id number] -[address] [facility] Exm Date: DEC 23, 2021@02:18 Req Phys: KOSTA PHILLIP Pat Loc: [facility] ED NIGHTS M1RD (Req'g Loc) Img Loc: XRAY (OOS) Service: Unknown (Case [id number] COMPLETE) WRIST 3 VIEWS (ROUTINE) (RAD Detailed) CPT:89195 Proc Modifiers : RIGHT Reason for Study: distal ulna pain after fall Clinical History: Report Status: Verified Date Reported: DEC 23, 2021 Date Verified: DEC 23, 2021 Construction Person E-Sig: Report: WRIST 3 VIEWS (ROUTINE) HISTORY: distal ulna pain after fall COMPARISON: 09/23/2016 right hand radiographs TECHNIQUE: 4 view(s) of the right wrist, submit berhane to the [place] National Teleradiology Program (NTP) for interp retation. [...] scapholunate ligament injury/tear. READING PHYSICIAN: Hansel Powell -[phone] 12/22/2021 20:56 [facility] National Teleradiology Program [phone] (For Medical Practitioner Use Only ) Attention [...] Encounter. Date/Time Encounter Note(s) Provider Source Dec 31, 2021 10:19 AM RN PROGRESS NOTE: DEREK TATUM [place] LOCAL TITLE: CCC: CLINICAL TRIAGE [facility] STANDARD TITLE: RN PROGRESS NOTE DATE OF NOTE: DEC 31, 2021@10:19:33 ENTRY DATE: DEC 31, 2021@10:19:33 AUTHOR: DEREK TATUM COSIGNER: URGENCY: STATUS: COMPLETED Patient Demographics Patient Name: RUPERT JORGENSEN Patient Primary [address]: [address] [place] [address]
[place] [address] Patient Primary Phone: [phone] Patient : 1945 SSN: [id number] Patient Age: 76 Caller Relationship: Daughter Caller Name: Lisseth Triage Summary Nurse Summary: Ms. Jorgensen ([facility]) called in to report her father has a severe case of gout in his left foot and l eft elbow. States he has had gout on and off for 6 months but the pain now is severe, unable to bare weight. states the left great toe is swollen, red to pur ple, and his left elbow and shoulder area also painful. Pt currently on allo purinol and is requesting prednisone for the pain. Recommended he proceed to the closest Emergency ROom for further evaluation of hi s condition. recommended family call 911 if [place] is unable to get to the car to be brought to the ER. Will alert pact team to this note. Conducted triage/discussed symptoms Chief Complaint: Foot Pain System WHEN: Now Nurse's Recommendation / WHEN: Now System WHERE: Emergency department Nurse's Recommendation / WHERE: [facility] Patient Disposition Patient/Caregiver agrees to plan of care: Yes Other - Patient Where Disposition: [facility] Summary of Actions Referred patient to emergency services Instructed to go to Emergency Department Clinical Contact Center Codes Clinic/Location: V1 [facility] PHONE CCC RN TXCC Triage Complete Triage Note: Phone Triage 31 Dec 2021 14:04:33 +0000 [facility] Demographics 76 y/o Male Results CC: Foot Pain Software suggested: Now Software suggested follow-up location: Emergenc y department Values and Measures Duration of CC: 6 Months Alerts 1) This is a HIGHER COMPLEXITY patient. 2) If this patient is in the clinic, consider t ransferring care to the ED. Positive Responses HPI: foot pain, severe HPI: [...] or periungual skin Denies: HPI: toe pallor Education Verbal Education Provided: Based on your responses, you should be treated in the emergency room. Take action: You need to see a provider now or your conditio n could worsen. A prolonged loss of blood flow to an limb can c ause irreversible damage. /almaz/ Derek Tatum NURSE STITCH MARKER Signed: 12/31/2021 10:19 Receipt Acknowledged By: * AWAITING SIGNATURE * MATTHEW TIRADO * AWAITING SIGNATURE * KALI TINOCO
[2021-12-31] MEDS: oxyCODONE 5 MG TAB PO (14:05)
[2021-12-31] MEDS: predniSONE 20 MG TAB 40 MG PO (14:05)
[2021-12-31] MEDS: Indomethacin 25 MG CAP 50 MG PO (14:05)
[2021-12-31 14:14] LABS: HCT 32.8 % (40.0-50.0); HGB 9.9 g/dL (13.5-17.5); MCH 21.9 pg (27.0-33.0); MCHC 30.2 % (32.0-36.0); MCV 72 fL (80-95); MPV 9.3 fL (8.0-11.0); Platelet Count 677 10^3/uL (130-400); RBC 4.53 10^6/uL (4.36-5.78); RDW 19.9 % (11.8-14.1); RDW-SD 50.9 fL
[2021-12-31 14:21] LABS: WBC 27.34 10^3/uL (4.4-10.8)
[2021-12-31 14:28] LABS: Absolute Lymphocyte Count 1.64 10^3/uL (1.2-3.4); Absolute Monocyte Count 1.09 10^3/uL (0.1-0.8); Absolute Neutrophil Count 24.33 10^3/uL (1.2-6.7); Bands % 4
[2021-12-31 14:29] LABS: Absolute Basophil Count 0.27 10^3/uL (0.0-0.2); Diff Comment Manual Differential; Microcytosis 2+; Poikilocytes 2+; Uric Acid 5.6 mg/dL (3.5-7.2)
--- NOTE | 2021-12-31 14:45 | DI.RAD_ITS ---
Exam(s) XR CHEST 2V PA LATERAL EXAM: XR CHEST 2V PA LATERAL CLINICAL HISTORY: Cough, R/O Pneumonia TECHNIQUE: 2D digital imaging was performed of the chest. Two images were obtained. PA and lateral views were obtained. COMPARISON: No exams were available for comparison FINDINGS: There is poor inspiration. MEDIASTINUM: Normal. HEART: Normal. PULMONARY VASCULATURE: Normal. LUNGS: No focal consolidating infiltrates are present. PLEURAL SPACE: No pleural effusion or pneumothorax. BONE:Within normal limits for the patient's age. OTHER FINDINGS:Normal. IMPRESSION: No acute pulmonary findings. DATA REPOSITORY: RADIATION DOSE DELIVERED:
[2021-12-31 15:15] LABS: Abs Immature Grans 1.43 10^3/uL (0.0-0.06); Absolute Basophil Count 0.08 10^3/uL (0.0-0.2); Absolute Lymphocyte Count 0.73 10^3/uL (1.2-3.4); Absolute Monocyte Count 2.56 10^3/uL (0.1-0.8); Basophils % 0.3; HGB 9.7 g/dL (13.5-17.5); Immature Grans % 5.1; Lymphocytes % 2.6; MCH 21.8 pg (27.0-33.0); MCHC 30.3 % (32.0-36.0); MCV 72 fL (80-95); MPV 9.4 fL (8.0-11.0); Monocytes % 9.1; Neutrophils % 82.9; Nucleated RBC 0.1 % (0.0-0.3); Platelet Count 660 10^3/uL (130-400); RBC 4.44 10^6/uL (4.36-5.78); RDW 19.8 % (11.8-14.1); RDW-SD 50.4 fL
[2021-12-31 15:17] LABS: WBC 28.11 10^3/uL (4.4-10.8)
[2021-12-31 15:41] LABS: ALT 39 U/L (16-63); AST 27 U/L (15-37); Albumin 1.9 g/dL (3.4-5.0); Alkaline Phosphatase 147 U/L (46-116); Anion Gap 13.2 mmol/L (3-11); BUN 22 mg/dL (7-18); Bilirubin, Total 0.6 mg/dL (0.2-1.0); CO2 22.8 mmol/L (21.0-32.0); CREATININE 1.4 mg/dL (0.70-1.30); Calcium 8.1 mg/dL (8.5-10.1); Chloride 94 mmol/L (98-107); Estimated GFR 52.41 (mL/min/1.73m2); Glucose 136 mg/dL (74-106); Magnesium 0.8 mg/dL (1.8-2.4); Potassium 3.4 mmol/L (3.5-5.1); Sodium 130 mmol/L (136-145); Total Protein 7.7 g/dL (6.4-8.2)
[2021-12-31 15:42] LABS: NT-proBNP 1243 pg/mL (<300)
[2021-12-31 16:00] LABS: Source Nasal/Nares
[2021-12-31] MEDS: MAGNESIUM SULFATE 4 GM/100 ML BAG IVPB (16:10)
[2021-12-31 16:33] LABS: COVID-19 PCR Negative (Negative)
[2021-12-31 17:25] LABS: C-Reactive Protein > 25.00 mg/dL (0.0-0.3)
[2021-12-31 17:34] LABS: NT-proBNP 1168 pg/mL (<300)
[2021-12-31 17:37] LABS: Creatine Kinase 29 U/L (39-308)
[2021-12-31] MEDS: cefTRIAXone 2 GM/50 ML BAG IVPB (17:37)
[2021-12-31 18:33] LABS: Procalcitonin 0.8 ng/mL
[2021-12-31] MEDS: Furosemide 40 MG TAB PO (21:13)
[2021-12-31] MEDS: Atorvastatin 40 MG TAB 80 MG PO (21:14)
[2021-12-31] MEDS: Omeprazole 20 MG CAPCR PO (21:14)
[2021-12-31] MEDS: Apixaban 5 MG TAB PO (21:14)
[2021-12-31 21:36] LABS: Bilirubin Negative (Negative); Blood Negative (Negative); Clarity Clear (Clear); Glucose Negative (Negative); Ketones Negative (Negative); Leukocyte Esterase Negative (Negative); Nitrite Negative (Negative); Urobilinogen 0.2 EU/dL (Up TO 0.2); pH 5.5 (5-8)
[2021-12-31 21:40] LABS: Lactate 1.4 mmol/L (0.6-1.4)
[2021-12-31 21:44] LABS: Bacteria Rare HPF (Negative); C & S Indicated? No; Casts 0-2 Hyaline LPF (Negative); Crystals Negative HPF (Negative); Epithelial Cells Negative HPF (Negative); Mucus Negative (Negative); RBC Negative HPF (0-2); WBC Negative HPF (0-5)
--- NOTE | 2021-12-31 22:45 | RT.EKG_ITS ---
APPROVED REPORT Exam: Resting ECG Reason for Exam: sepsis, atrial fibrillation Patient Location: E HR:87 bpm ECG Measurements Heart Rate 87 AXIS ID [id number] P [id number] QRSd 135 QRS -48 QT 391 T -18 QTc 470 Conclusion Atrial fibrillation...V-rate 60-119, irreg A-activity RBBB and LAFB...QRSd >120mS, axis(-40,240) I have reviewed and interpreted ECG and agree with software generated interpretation.
[2021-12-31] MEDS: oxyCODONE 5 MG TAB (23:24)
[2022-01-03 10:48] LABS: Lyme Ab w Rflx to Lyme Confirm Negative (Negative)
[2022-01-05 22:51] LABS: Anaplasma phagocytophilum Negative (Negative); B. miyamotoi PCR Negative (Negative); Babesia divergens/MO-1 Negative (Negative); Babesia duncani Negative (Negative); Babesia microti Negative (Negative); Ehrlichia chaffeensis Negative (Negative); Ehrlichia ewingii/canis Negative (Negative); Ehrlichia muris eauclairensis Negative (Negative)
== END 2021-12-31 23:40 ==
PROVIDERS: Registered Nurse Emergency; Emergency Provider Physician Assistant
DX: M25.50 Pain in unspecified joint (principal); D72.829 Elevated white blood cell count, unspecified; I48.91 Unspecified atrial fibrillation; Z87.891 Personal history of nicotine dependence; Z79.01 Long term (current) use of anticoagulants; R05.9 Cough, unspecified; R78.81 Bacteremia; B96.89 Other specified bacterial agents as the cause of diseases classified elsewhere; Z20.822 Contact with and (suspected) exposure to COVID-19
CPT/HCPCS: 36415; 80053; 82550; 84145; 87040; 87635; 87798; 93005; 96361; 96365; 96367; 99285; 71046; 81003; 81015; 83605; 83735; 83880; 84550; 85025; 86140; 86618; 93010; 99284; J3475; J7512

== ENCOUNTER 2022-01-08 15:19 | Emergency (ER) | payer OTHER, SELFPAY ==
[2022-01-08 15:29] VITALS: BP 150/77; PULSE 83; RESP 16; TEMP 36.6; O2SAT 95
[2022-01-08 16:14] LABS: Abs Immature Grans 0.33 10^3/uL (0.0-0.06); Absolute Basophil Count 0.02 10^3/uL (0.0-0.2); Absolute Lymphocyte Count 0.46 10^3/uL (1.2-3.4); Absolute Neutrophil Count 13.96 10^3/uL (1.2-6.7); Basophils % 0.1; Eosinophils % 0.1; HCT 34.9 % (40.0-50.0); HGB 10.2 g/dL (13.5-17.5); Immature Grans % 2.2; MCH 21.7 pg (27.0-33.0); MCHC 29.2 % (32.0-36.0); MCV 74 fL (80-95); MPV 9.1 fL (8.0-11.0); Monocytes % 3.3; Neutrophils % 91.3; Nucleated RBC 0.3 % (0.0-0.3); Platelet Count 605 10^3/uL (130-400); RDW 20.5 % (11.8-14.1); RDW-SD 53.4 fL; WBC 15.29 10^3/uL (4.4-10.8)
[2022-01-08 16:16] LABS: Absolute Eosinophil Count 0.02 10^3/uL (0.0-0.7)
[2022-01-08 16:32] LABS: Anisocytosis 2+; Burr Cells (echinocyte) 2+; C-Reactive Protein 1.27 mg/dL (0.0-0.3); Microcytosis 2+; Ovalocytes 2+
--- NOTE | 2022-01-08 17:42 | W.ED.GENAD ---
Discharge Plan Disposition Patient Disposition: HOME Condition: Stable Discharge Details Clinical Impression: Encounter for blood test Primary Care Provider: [facility] ED Provider: Angi Aldana Home Meds and New Rx's Prescriptions: Continued furosemide 40 mg Tablet 40 mg PO BID atorvastatin 80 mg Tablet 80 mg PO DAILY acetaminophen 325 mg Tablet 650 mg PO PRN PRN metoprolol succinate 200 mg Tablet Extended Release 24 Hr 200 mg PO DAILY isosorbide mononitrate 30 mg Tablet Extended Release 24 Hr 30 mg PO DAILY aspirin 81 mg Tablet,Delayed Release (Dr/Ec) 81 mg PO DAILY amlodipine 10 mg Tablet 10 mg PO DAILY folic acid 1 mg Tablet 1 mg PO DAILY allopurinol 300 mg Tablet 300 mg PO DAILY omeprazole 20 mg Tablet,Delayed Release (Dr/Ec) 20 mg PO BID apixaban 5 mg Tablet 5 mg PO BID potassium chloride 20 mEq Tablet Extended Release 20 meq PO DAILY Discharge Instructions Instructions: Bacteremia (ED) Additional Instructions: Your blood tests today show improvement in your white blood cell count and C-reactive protein. Your repeat blood culture results are still pending and will take several days to result. Since you have no fever and you are feeling better, it is suspected that your blood cultures from 12/31/2021 likely showed a contaminant and is not the result of bacteria in your blood. Call your primary care doctor's office to schedule a follow-up appointment for reevaluation in the next 1 to 2 weeks. You can call the hospital laboratory to ask for the results of your blood cultures to be sent to your primary care doctor. Return immediately to the emergency department if you develop any worsening or new concerning symptoms such as fever, chills, body aches or any other concerns. Discharge Data Discharge Date/Time-TO BE ENTERED AT DEPARTURE: 01/08/22 18:03 Discharge Physician: Angi Aldana Medical Decision Making 76-year-old male with a history of cva x 2, afib on eliquis, gout who presents for repeat blood cultures after found to have gram-positive cocci in the anaerobic bottle of blood cultures drawn on ED visit on 12/31/2021 which grew at 5.5 days after having 5 days of no growth. Patient was transferred to [facility] when seen here on 12/31/2021 for leukocytosis and elevated CRP in the setting of body pain. Patient was discharged from [facility] on 9/12. He states he was not treated with antibiotics and his symptoms have significantly improved. Vitals within normal limits. He is afebrile and appears nontoxic. We will repeat CBC, CRP and blood cultures. Repeat white blood cell count significantly down trended from 28 to 15, CRP down trended from >25 to 1.27. Repeat blood cultures obtained. Case discussed with hospitalist -- as patient has significantly improved, has no fevers with improving labs and was not treated with antibiotics, suspect most likely contaminant. Patient would like to go home. Patient advised to return here immediately if he develops any fevers or worsening symptoms. Advised to follow up with the primary care doctor for re-evaluation. Usual and customary return precautions given prior to discharge. Medical Records Medical records reviewed: Yes I reviewed the patient's medical records. Lab Data Lab results reviewed: Yes I reviewed the patient's lab results. Labs: 01/08/22 16:15 Blood Blood Culture - Pending 01/08/22 16:00 Blood Blood Culture - Pending Laboratory Tests Range/Units 01/08/22 01/08/22 16:00 16:00 WBC (4.4-10.8) 10^3/uL 15.29 H RBC (4.36-5.78) 10^6/uL 4.70 Hgb (13.5-17.5) g/dL 10.2 L Hct (40.0-50.0) % 34.9 L MCV (80-95) fL 74 L MCH (27.0-33.0) pg 21.7 L MCHC (32.0-36.0) % 29.2 L RDW (11.8-14.1) % 20.5 H Plt Count (130-400) 10^3/uL 605 H MPV (8.0-11.0) fL 9.1 Immature Gran % 2.2 Neutrophils % 91.3 Lymphocytes % 3.0 Monocytes % 3.3 Eosinophils % 0.1 Basophils % 0.1 Nucleated RBC % (0.0-0.3) % 0.3 Absolute Neutrophils (1.2-6.7) 10^3/uL 13.96 H Absolute Lymphocytes (1.2-3.4) 10^3/uL 0.46 L Absolute Monocytes (0.1-0.8) 10^3/uL 0.50 Absolute Eosinophils (0.0-0.7) 10^3/uL 0.02 Absolute Basophils (0.0-0.2) 10^3/uL 0.02 RBC Morphology See Below Anisocytosis 2+ Microcytosis 2+ Ovalocytes 2+ Gadsden Cells/Echinocytes 2+ C-Reactive Protein (0.0-0.3) mg/dL 1.27 H HPI General Mode of arrival: wheelchair. Date/Time Provider Initiated Documentation: 01/08/22 15:33. Limitations to Documentation: no limitations. Information obtained by: patient. HPI Narrative: Patient is a 76-year-old male with a history of obesity, atrial fibrillation on Eliquis, CVA x2 and gout presents after instructed to return to the ED for repeat blood cultures after a blood culture obtained on ED visit on 12/31 noted gram-positive cocci in the anaerobic bottle which was thought to be a possible contaminant. Patient was seen here on 12/31 for a complaint of diffuse body pain, with worsening leg pain and swelling. He was found to have a white blood cell count of 28 and a CRP greater than 25. He was transferred to [facility] in-house beds available. He was discharged from [facility] on 01/03. Per discussion with [facility], repeat blood cultures were not obtained. Review of patient's medications notes that he is not taking any antibiotics. Patient states since being discharged from [facility], his body pain, leg pain and swelling has significantly improved and he denies any fevers, chest pain, shortness of breath, abdominal pain or vomiting. He states overall he has been improving. Related Data Home Medications Medication Instructions Recorded Confirmed acetaminophen 325 mg tablet 650 mg PO PRN PRN 12/31/21 01/08/22 allopurinol 300 mg tablet 300 mg PO DAILY 12/31/21 01/08/22 amlodipine 10 mg tablet 10 mg PO DAILY 12/31/21 01/08/22 apixaban 5 mg tablet 5 mg PO BID 12/31/21 01/08/22 aspirin 81 mg tablet,delayed 81 mg PO DAILY 12/31/21 01/08/22 release atorvastatin 80 mg tablet 80 mg PO DAILY 12/31/21 01/08/22 folic acid 1 mg tablet 1 mg PO DAILY 12/31/21 01/08/22 furosemide 40 mg tablet 40 mg PO BID 12/31/21 01/08/22 isosorbide mononitrate 30 mg 30 mg PO DAILY 12/31/21 12/31/21 tablet,extended release 24 hr metoprolol succinate 200 mg 200 mg PO DAILY 12/31/21 12/31/21 tablet,extended release 24 hr omeprazole 20 mg tablet,delayed 20 mg PO BID 12/31/21 12/31/21 release potassium chloride 20 mEq 20 meq PO DAILY 12/31/21 12/31/21 tablet,extended release Allergies Allergy/AdvReac Type Severity Reaction Status Date / Time No Known Allergies Allergy Unverified 01/08/22 15:33 General Stated Complaint: GenMedical VINCENT: 3 Review of Systems All systems reviewed & are unremarkable except as noted in HPI and below Constitutional Constitutional: Reports as per HPI, Denies chills and Denies fever(s) Eyes Eyes: Denies blurry vision ENT Ears, Nose, Mouth, and Throat: Denies dizziness, Denies sore throat and Denies throat swelling Cardiovascular Cardiovascular: Denies chest pain and Denies dyspnea Respiratory Respiratory: Denies cough and Denies dyspnea Gastrointestinal Gastrointestinal: Denies abdominal pain, Denies diarrhea and Denies vomiting Genitourinary Genitourinary: Denies hematuria and Denies dysuria Musculoskeletal Musculoskeletal: Denies back pain and Denies numbness Integumentary/Breasts Skin/Breast: Denies lesions and Denies rash Neurologic Neurologic: Denies dizziness, Denies localized weakness and Denies numbness Allergic/Immunologic Allergic/Immunologic: Denies throat swelling PFSH All Active Problems (Updated 01/09/22 @ 09:10 by Angi Aldana DO) Encounter for blood test (Acute) Medical History (Updated 01/09/22 @ 09:10 by Angi Aldana DO) Atrial fibrillation CVA (cerebral vascular accident) Gout Right wrist fracture Social History Smoking/Tobacco Use Status: Former Tobacco Use Smoking risk assessment performed?: Yes Alcohol Intake: former Drug use: Never Substance use type: does not use Do you feel safe at home: Yes Do you feel safe in your relationship?: Yes Exam Const General: cooperative and no acute distress Orientation: alert, awake and oriented x3 HENMT Head: normal to inspection Mouth: oral mucosae normal Eyes General: appearance normal, both eyes and all related structures Neck Neck: normal visual inspection Resp Effort & Inspection: normal respiratory effort and able to speak in complete sentences Cardio Rate: regular rate Skin General skin exam: no rashes or lesions noted Neuro General: patient alert, patient awake and patient oriented x3 Motor: muscle tone normal throughout Extrem General: full ROM Psych Appearance: grossly normal Affect: normal affect Course Vital Signs Vital signs: Vital Signs Temperature 97.8 F 01/08/22 15:29 Pulse 83 01/08/22 15:29 Respiratory Rate 16 01/08/22 15:29 Blood Pressure 150/77 H 01/08/22 15:29 Pulse Oximetry 95 01/08/22 15:29 Temperature 97.8 F 01/08/22 15:29 Temperature Source Oral 01/08/22 15:29 Pulse 83 01/08/22 15:29 Respiratory Rate 16 01/08/22 15:29 Blood Pressure 150/77 H 01/08/22 15:29 Blood Pressure Position Sitting 01/08/22 15:29 Pulse Oximetry 95 01/08/22 15:29 Oxygen Delivery Method Room Air 01/08/22 15:29 Oxygen Flow Rate 0 01/08/22 15:29 Pain Level 1 01/08/22 15:29 Comment 01/08/22 15:29 Lab/Test Results Lab/Test Results: 01/08/22 16:15 Blood Blood Culture - Pending 01/08/22 16:00 Blood Blood Culture - Pending Laboratory Tests Range/Units 01/08/22 01/08/22 16:00 16:00 WBC (4.4-10.8) 10^3/uL 15.29 H RBC (4.36-5.78) 10^6/uL 4.70 Hgb (13.5-17.5) g/dL 10.2 L Hct (40.0-50.0) % 34.9 L MCV (80-95) fL 74 L MCH (27.0-33.0) pg 21.7 L MCHC (32.0-36.0) % 29.2 L RDW (11.8-14.1) % 20.5 H Plt Count (130-400) 10^3/uL 605 H MPV (8.0-11.0) fL 9.1 Immature Gran % 2.2 Neutrophils % 91.3 Lymphocytes % 3.0 Monocytes % 3.3 Eosinophils % 0.1 Basophils % 0.1 Nucleated RBC % (0.0-0.3) % 0.3 Absolute Neutrophils (1.2-6.7) 10^3/uL 13.96 H Absolute Lymphocytes (1.2-3.4) 10^3/uL 0.46 L Absolute Monocytes (0.1-0.8) 10^3/uL 0.50 Absolute Eosinophils (0.0-0.7) 10^3/uL 0.02 Absolute Basophils (0.0-0.2) 10^3/uL 0.02 RBC Morphology See Below Anisocytosis 2+ Microcytosis 2+ Ovalocytes 2+ Gadsden Cells/Echinocytes 2+ C-Reactive Protein (0.0-0.3) mg/dL 1.27 H
== END 2022-01-09 18:32 | disposition home or self-care (01) ==
PROVIDERS: Emergency Provider Physician Assistant
DX: Z00.00 Encounter for general adult medical examination without abnormal findings (principal); Z87.891 Personal history of nicotine dependence
CPT/HCPCS: 87040; 99282; 85025; 86140; 99281

== ENCOUNTER 2022-01-22 09:11 | Inpatient (IN) | payer OTHER, SELFPAY ==
[2022-01-22] VITALS (112 sets, daily range): BP systolic 84–137; BP diastolic 53–94; PULSE 71–118; RESP 14–31; TEMP 36.6–36.9; O2SAT 81–95
--- NOTE | 2022-01-22 09:15 | RT.EKG_ITS ---
APPROVED REPORT Exam: Resting ECG Reason for Exam: WEAKNESS Patient Location: E HR:103 bpm ECG Measurements Heart Rate 103 AXIS MO [id number] P [id number] QRSd 117 QRS -64 QT 373 T -3 QTc 489 Conclusion Atrial fibrillation...? atrial activity Ventricular premature complex...V complex w/ short R-R interval Incomplete right bundle branch block...QRSd >112, terminal axis(90,270) Low voltage, extremity leads...all extremity leads <0.5mV
--- NOTE | 2022-01-22 09:34 | ED.GENADUL_ITS ---
Discharge Plan Disposition Patient Disposition: [facility] INPATIENT Condition: Stable Discharge Details Chief Complaint: GenMedical Clinical Impression: General weakness, Hypocalcemia, Hypomagnesemia Primary Care Provider: [facility] Provider: Andry Barrera Home Meds and New Rx's Prescriptions: No Action prednisone 20 mg Tablet 20 mg PO BID tramadol 50 mg Tablet 50 mg PO PRN PRN amitriptyline 10 mg tablet 1 tab PO DAILY Label Comments: TAKE ONE TABLET BY MOUTH EVERY DAY AT BEDTIME albuterol 90 mcg/actuation Aerosol INHALATION Combivent Respimat 20-100 mcg/actuation Mist 1 puff INHALATION QID colchicine 0.6 mg Capsule 0.6 mg PO DAILY furosemide 40 mg Tablet 40 mg PO DAILY atorvastatin 80 mg Tablet 80 mg PO DAILY acetaminophen 325 mg Tablet 650 mg PO PRN PRN metoprolol succinate 200 mg Tablet Extended Release 24 Hr 200 mg PO DAILY isosorbide mononitrate 30 mg Tablet Extended Release 24 Hr 30 mg PO DAILY aspirin 81 mg Tablet,Delayed Release (Dr/Ec) 81 mg PO DAILY amlodipine 10 mg Tablet 10 mg PO DAILY folic acid 1 mg Tablet 1 mg PO DAILY allopurinol 300 mg Tablet 300 mg PO DAILY omeprazole 20 mg Tablet,Delayed Release (Dr/Ec) 20 mg PO BID apixaban 5 mg Tablet 5 mg PO BID potassium chloride 20 mEq Tablet Extended Release 20 meq PO DAILY Medical Decision Making 76 yo male with hx of afib on apixaban, hld, who comes in with cc of not feeling well, general weakness and lightheaded since Monday. He was recently transferred due to not having beds here to [facility] in [place] for leukocytosis, d/c'd after spending several days there not on abx, had repeat blood cultures done as one bottle grew bacteria and repeat cultures negative. He states he hasn't felt back to his normal self since d/c and has felt weak but the lightheaded sensation started Monday. He has pain over most of his body that is chronic for him. He has noted some shortness of breath as well with exertion, no chest pain. He denies any fevers, chills, abdominal pain. He arrives stable, in afib rates in the low 100's. He has no focal motor or sensation deficits, cn ii-xii intact, nih of 0 on exam. He has diminished breath sounds at the bases, has pitting edema of his lower extremities of the distal tibia, no calf tenderness. Given his symptoms appear to be presyncope as well as general weakness will obtain cbc, cmp, mag levels, and though he has no chest pain check troponin. His symptoms seem more like presyncope and less likely dizziness/vertigo so feel cva is unlikely, symptoms started 4 days ago so not a lytic candidate regardless, will obtain ct head. patient's mag and calcium significantly low, repletion ordered. He has no leukocytosis xray unremarkable as is cat scan of his head. His procalcitonin is elevated but no clear source, vanco and zosyn ordered. He is hemodynamically stable, caox4 still. Discussed with [place] Dr. Agee who advised they don't have beds and requested if we have beds to keep patient here for treatment. Discussed with hospitalist who accepts for admission, requested stress dose steroids and tick panel be ordered as well in addition to antibiotics. Differential Diagnosis Differential Diagnosis: anemia, electrolyte abnormality, chf Medical Records Medical records reviewed: Yes I reviewed the patient's medical records. Imaging Data Radiologic Study: Attestation: I personally reviewed and interpreted this imaging study as follows: Imaging: CT Scan Radiologist's impression: no acute findings Radiologic Study #2: Attestation: I personally reviewed and interpreted this imaging study as follows: Imaging: X-Ray Radiologist's impression: no acute findings Lab Data Lab results reviewed: Yes I reviewed the patient's lab results. ECG Data Attestation: I personally reviewed and interpreted this ECG (s) as follows: Prior ECG tracings: available for review Interpretation: afib, rbbb, rate of 103, no acute ishemic findings HPI General Mode of arrival: wheelchair . Date/Time Provider Initiated Documentation: 01/22/22 09:12 . Limitations to Documentation: no limitations . Information obtained by: patient . History of Present Illness 76 year old M presents to the emergency department with the chief complaint of lightheaded, described as moderate, Patient started experiencing this day(s) (4) and it has been constant. No relieving factors improve symptom(s), No exacerbating factors reported . Patient notes weakness; denies chest pain. Patient did receive the following treatments prior to arrival, none Related Data Home Medications Medication Instructions Recorded Confirmed acetaminophen 325 mg tablet 650 mg PO PRN PRN 12/31/21 01/22/22 allopurinol 300 mg tablet 300 mg PO DAILY 12/31/21 01/22/22 amlodipine 10 mg tablet 10 mg PO DAILY 12/31/21 01/22/22 apixaban 5 mg tablet 5 mg PO BID 12/31/21 01/22/22 aspirin 81 mg tablet,delayed 81 mg PO DAILY 12/31/21 01/22/22 release atorvastatin 80 mg tablet 80 mg PO DAILY 12/31/21 01/22/22 folic acid 1 mg tablet 1 mg PO DAILY 12/31/21 01/22/22 furosemide 40 mg tablet 40 mg PO DAILY 12/31/21 01/22/22 isosorbide mononitrate 30 mg 30 mg PO DAILY 12/31/21 01/22/22 tablet,extended release 24 hr metoprolol succinate 200 mg 200 mg PO DAILY 12/31/21 01/22/22 tablet,extended release 24 hr omeprazole 20 mg tablet,delayed 20 mg PO BID 12/31/21 01/22/22 release potassium chloride 20 mEq 20 meq PO DAILY 12/31/21 01/22/22 tablet,extended release albuterol 90 mcg/actuation aerosol mcg inhalation 01/22/22 inhaler amitriptyline 10 mg tablet 1 tab PO DAILY 01/22/22 01/22/22 colchicine 0.6 mg capsule 0.6 mg PO DAILY 01/22/22 01/22/22 ipratropium 20 mcg-albuterol 100 1 puff inhalation QID 01/22/22 01/22/22 mcg/actuation mist for inhalation (Combivent Respimat) prednisone 20 mg tablet 20 mg PO BID 01/22/22 01/22/22 tramadol 50 mg tablet 50 mg PO PRN PRN 01/22/22 01/22/22 Allergies Allergy/AdvReac Type Severity Reaction Status Date / Time No Known Allergies Allergy Unverified 01/22/22 09:34 General Stated Complaint: GenMedical VINCENT: 2 Review of Systems All systems reviewed & are unremarkable except as noted in HPI and below Constitutional Constitutional: Denies chills and Denies fever(s) Eyes Eyes: Denies loss of vision Cardiovascular Cardiovascular: Denies chest pain Respiratory Respiratory: Denies cough Gastrointestinal Gastrointestinal: Denies abdominal pain, Denies nausea and Denies vomiting Genitourinary Genitourinary: Denies dysuria Integumentary/Breasts Skin/Breast: Denies rash Neurologic Neurologic: Denies loss of vision PFSH All Active Problems (Updated 01/22/22 @ 11:13 by Andry Barrera MD) General weakness (Acute) Hypocalcemia (Acute) Hypomagnesemia (Acute) Encounter for blood test (Acute) Medical History (Updated 01/22/22 @ 11:13 by Andry Barrera MD) Atrial fibrillation CVA (cerebral vascular accident) Gout Right wrist fracture Social History Smoking/Tobacco Use Status: Former Tobacco Use Smoking risk assessment performed?: Yes Alcohol Intake: former Drug use: Never Substance use type: does not use Do you feel safe at home: Yes Do you feel safe in your relationship?: Yes Exam Const General: no acute distress Orientation: alert HENMT Head: normal to inspection Ears: external ears normal General nose exam: external nose normal Mouth: moist mucous membranes Eyes General: appearance normal, both eyes and all related structures Neck Neck: normal visual inspection Resp Effort & Inspection: normal respiratory effort and able to speak in complete sentences Cardio Rate: regular rate GI Palpation: soft and nontender Skin General skin exam: no rashes or lesions noted Neuro General: patient alert and patient oriented x3 Extrem General: capillary refill normal Psych Mental Status: mental status grossly normal Course Vital Signs Vital signs: Vital Signs Temperature 36.9 C 01/22/22 09:17 Pulse 110 H 01/22/22 09:17 Respiratory Rate 20 01/22/22 09:17 Blood Pressure 115/94 H 01/22/22 09:17 Pulse Oximetry 93 01/22/22 09:17 Temperature 36.9 C 01/22/22 09:17 Temperature Source Skin 01/22/22 09:17 Pulse 110 H 01/22/22 09:17 Respiratory Rate 20 01/22/22 09:22 Respiratory Effort 01/22/22 09:22 Respiratory Depth Shallow 01/22/22 09:22 Respiratory Pattern Normal 01/22/22 09:22 Blood Pressure 115/94 H 01/22/22 09:17 Blood Pressure Position Supine 01/22/22 09:17 Pulse Oximetry 93 01/22/22 09:17 Oxygen Delivery Method Room Air 01/22/22 09:17 Oxygen Flow Rate 0 01/22/22 09:17 Pain Level 0 01/22/22 09:17 Lab/Test Results Lab/Test Results: 01/22/22 09:26 Blood Blood Culture - Pending 01/22/22 09:26 Blood Blood Culture - Pending
[2022-01-22 09:52] LABS: BE (Venous) -4 mmol/L (-2-3); HCO3 (Venous) 21 mmol/L (23-28); O2 Sat (Venous) 68 %; TCO2 (Venous) 20 mmol/L (24-29); pCO2 (Venous) 36 mmHg (41-51); pH (Venous) 7.38 (7.31-7.41); pO2 (Venous) 40 mmHg
[2022-01-22 09:52] LABS: Source Nasal/Nares
[2022-01-22 09:57] LABS: Lactate 3.1 mmol/L (0.6-1.4)
--- NOTE | 2022-01-22 10:00 | DI.CT_ITS ---
Exam(s) CT HEAD WO EXAM: CT HEAD WO CLINICAL HISTORY: dizziness. TECHNIQUE: Imaging Protocol: Axial computed tomography images with coronal and sagittal reformatted images were created and reviewed COMPARISON: No exams were available for comparison FINDINGS: There are no skull fractures nor fluid in the visualized paranasal sinuses. There is no evidence of intracranial hemorrhage, mass effect, or shift of midline structures. There are no extra-axial fluid collections. The ventricles are not enlarged or shifted and there is no blo od within the ventricular system nor within the basal cisterns. There is abnormal asymmetric hypodensity in the left supra ventricular white matter noted. Most prob ably related to ischemic event, age indeterminate. Also mild hypodensity in the white matter around the frontal horns of both lateral ventricles. IMPRESSION: Left supra ventricular white matter hypodensity consistent with ischemic infarct. This is in the fro ntal lobe and territory of the left anterior cerebral-pericallosal artery. Recommend follow-up MRI w ith diffusion imaging for added sensitivity and specificity. RADIATION DOSE DELIVERED: 797.21mGy.cm Total DLP DATA REPOSITORY: All CT scans at this facility are submitted to the National Radiology Data Registry (NRDR) Dose Index Registry (DIR) with the [employer] ([employer]). RADIATION OPTIMIZATION: All CT scans at this facility use at least one of these dose optimization te chniques: automated exposure control; mA and/or kV adjustment per patient size (includes targeted exa ms where dose is matched to clinical indication); or iterative reconstruction.
[2022-01-22 10:04] LABS: Abs Immature Grans 0.07 10^3/uL (0.0-0.06); Absolute Basophil Count 0.09 10^3/uL (0.0-0.2); Absolute Eosinophil Count 0.06 10^3/uL (0.0-0.7); Absolute Monocyte Count 1.15 10^3/uL (0.1-0.8); Absolute Neutrophil Count 8.09 10^3/uL (1.2-6.7); Basophils % 0.9; Eosinophils % 0.6; HCT 35.6 % (40.0-50.0); HGB 10.4 g/dL (13.5-17.5); Immature Grans % 0.7; Lymphocytes % 4.1; MCH 21.6 pg (27.0-33.0); MCHC 29.2 % (32.0-36.0); MCV 74 fL (80-95); MPV 9.8 fL (8.0-11.0); Monocytes % 11.7; Platelet Count 385 10^3/uL (130-400); RBC 4.82 10^6/uL (4.36-5.78); RDW 21.1 % (11.8-14.1); RDW-SD 54.7 fL; WBC 9.86 10^3/uL (4.4-10.8)
--- NOTE | 2022-01-22 10:05 | DI.RAD_ITS ---
Exam(s) XR CHEST 2V PA LATERAL EXAM: XR CHEST 2V PA LATERAL CLINICAL HISTORY: shortness of breath. TECHNIQUE: 2D digital imaging was performed. COMPARISON: CR XR CHEST 2V PA LATERAL from 12/31/2021 FINDINGS: 2 views: Heart size is mildly prominent, unchanged. The mediastinum is not widened. Lungs are clear. No infiltrates nor pleural effusions. IMPRESSION: No acute pulmonary findings. DATA REPOSITORY: RADIATION DOSE DELIVERED:
[2022-01-22 10:12] LABS: INR 1.5 (0.9-1.1); PTT Activated 43.6 sec (21.0-27.5)
--- NOTE | 2022-01-22 10:18 | DI.VRAD_ITS ---
PROCEDURE INFORMATION: Exam: CT Head Without Contrast Exam date and time: 01/22/2022 9:55 AM Age: 76 years old Clinical indication: Stroke-like symptoms; Dizziness/giddiness TECHNIQUE: Imaging protocol: Computed tomography of the head without contrast. Other technique: STROKE PROTOCOL was implemented. COMPARISON: No relevant prior studies available. FINDINGS: Brain: There is no evidence of acute brain infarct, mass, shift of midline or parenchymal hemorrhage. Patchy periventricular white matter low attenuation present, a nonspecific finding but likely related to chronic small vessel ischemic change. Cerebral ventricles: Moderate dilatation of the ventricular system and sulci diffusely, compatible with volume loss. Paranasal sinuses: Visualized sinuses are unremarkable. No fluid levels. Mastoid air cells: Visualized mastoid air cells are well aerated. Bones/joints: Unremarkable. No acute fracture. Soft tissues: Unremarkable. IMPRESSION: No evidence of acute infarct ASSESSMENT: ASPECTS ([place] Stroke Program Early CT Score) is 10. Dictated and Authenticated by: Cecelia Bales MD. Ordering:TOMAS Wilde MD
[2022-01-22 10:21] LABS: ALT 17 U/L (16-63); AST 27 U/L (15-37); Albumin 2.6 g/dL (3.4-5.0); Alkaline Phosphatase 159 U/L (46-116); Anion Gap 15.1 mmol/L (3-11); BUN 13 mg/dL (7-18); Bilirubin, Total 0.7 mg/dL (0.2-1.0); CO2 22.9 mmol/L (21.0-32.0); CREATININE 1.4 mg/dL (0.70-1.30); Chloride 99 mmol/L (98-107); Estimated GFR 52.41 (mL/min/1.73m2); Glucose 130 mg/dL (74-106); NT-proBNP 2051 pg/mL (<300); Potassium 3.6 mmol/L (3.5-5.1); Sodium 137 mmol/L (136-145); Total Protein 7.8 g/dL (6.4-8.2); Troponin I < 50 ng/L (<or=60)
--- NOTE | 2022-01-22 10:21 | DI.VRAD_ITS ---
PROCEDURE INFORMATION: Exam: XR Chest Exam date and time: 01/22/2022 10:06 AM Age: 76 years old Clinical indication: Shortness of breath TECHNIQUE: Imaging protocol: Radiologic exam of the chest. Views: 2 views. COMPARISON: CR XR CHEST 2V PA LATERAL 12/31/2021 3:32 PM FINDINGS: Lungs: Increased markings in the right lung base are unchanged. No evidence of acute consolidation Pleural spaces: Unremarkable. No pleural effusion. No pneumothorax. Heart/Mediastinum: Stable cardiomegaly Vasculature: Aorta is tortuous and ectatic with atherosclerotic calcifications Bones/joints: Unremarkable. IMPRESSION: No significant interval change Dictated and Authenticated by: Cecelia Bales MD. Ordering:TOMAS Wilde MD
[2022-01-22 10:24] LABS: COVID-19 PCR Negative (Negative)
[2022-01-22 10:26] LABS: Calcium 5.8 mg/dL (8.5-10.1); Magnesium 0.4 mg/dL (1.8-2.4)
[2022-01-22 10:43] LABS: Procalcitonin 11.6 ng/mL
[2022-01-22] MEDS: MAGNESIUM SULFATE 4 GM/100 ML BAG IVPB (10:45)
[2022-01-22] MEDS: CALCIUM GLUCONATE in NaCl 1 GM/50 ML BAG IVPB (10:46)
[2022-01-22 10:57] LABS: PHOSPHORUS 4.6 mg/dL (2.6-4.7)
[2022-01-22 11:11] LABS: Lipase 54 U/L (73-393)
[2022-01-22] MEDS: PIPERACILLIN/TAZO 4.5 GM in Normal Saline 100 ML IVPB (11:29)
[2022-01-22] MEDS: Hydrocortisone SOD SUC. 100 MG VIAL IVP (11:30)
[2022-01-22 12:00] LABS: Anion Gap 15.9 mmol/L (3-11); BUN 15 mg/dL (7-18); CO2 23.1 mmol/L (21.0-32.0); CREATININE 1.4 mg/dL (0.70-1.30); Chloride 99 mmol/L (98-107); Estimated GFR 52.41 (mL/min/1.73m2); Glucose 116 mg/dL (74-106); Magnesium 0.8 mg/dL (1.8-2.4); Potassium 3.8 mmol/L (3.5-5.1); Sodium 138 mmol/L (136-145)
[2022-01-22 12:06] LABS: Calcium 6.4 mg/dL (8.5-10.1)
[2022-01-22] MEDS: VANCOMYCIN 1,000 MG in Normal Saline 250 ML 166.6666 MG IVPB (12:09)
--- NOTE | 2022-01-22 12:28 | HPE_ITS ---
Date of service: 01/22/22 Time of Service: 14:09 Assessment and Plan Assessment and plan (1) Hypomagnesemia: Status: Acute Assessment and plan: Replete. As it is severe, I think Mr Jorgensen should be monitored in the ICU until magnesium is at least 1.0. I suspect the cause of this is PPI therapy. (2) Hypocalcemia: Status: Acute Assessment and plan: Replete. Suspect this is due to hypomagnesemia. (3) Acute CHF: Status: Acute Assessment and plan: Diurese. Monitor I/O's. 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 (4) General weakness: Status: Acute Assessment and plan: In setting of electrolyte abnormalities, suspected pneumonia, recent cessation of steroids (not used chronically). C/s PT. Stress dose steroids. Replete lytes. Treat suspected PNA. Checking tick panel. (5) Pneumonia: Status: Acute Assessment and plan: Suspected based on reports of productive cough, high procalcitonin. Continue empiric abx (6) DVT prophylaxis: Status: Acute Assessment and plan: On eliquis (for h/o Afib) (7) Discharge planning issues: Status: Acute Assessment and plan: DNI, but not DNR per my conversation with the patient as witnessed by . C/s PT. History of Present Illness History of Present Illness Chief Complaint: Weakness Narrative: Mr Jorgensen is a 76 year old male with PMHx of CAD s/p [place] (no stents), non- oxygen dependent COPD, Afib on apixaban, CVA x 2, hypertension, gout, chronic pain, who presented to [facility] ED c/o 4 days of malaise and difficulty getting out of bed. He says he ambulates with a cane, but even with a cane he has had difficulty getting to the bathroom. He denies falls. His body aches appear to be at his baseline. He also reported a lightheaded sensation since Monday (4 days) and JACOBS. This morning he also noted a productive cough (he does not know the color of the sputum). He says wheezing is normal for him. He woke up with a heart-burn like chest pain this morning, lasting two minutes. On his ER workup, he was found to be profoundly hypomagnesemic and hypocalcemic with magnesium of 0.4 (0.8 on repeat) and a calcium of 5.8 (6.4 on repeat). CT head was negative. He is covid negative. CXR does not show a clear infiltrate. Given severity of electrolyte abnormalities and patient's symptoms, hospitalist admission was requested. Additionally, the patient was found to have a high procalcitonin with, at this time, an unclear source. He was started on empiric vancomycin and zosyn. Of note, in 12/31/21, the patient had presented to our facility with nonpsecific symptoms, including arthralgias. At that time, one of his 4 blood culture bottles had grown anaerobic GPCs, felt to be a contaminant. The patient was then transferred to [facility], where he was had repeat blood cultures which were negative. He, reportedly, felt better without antibiotics. He was felt to have gout. He was discharged home at that time. Review of Systems All systems reviewed & are unremarkable except as noted in HPI and below PFSH All Active Problems (Updated 01/22/22 @ 15:24 by Cyndi Genao MD) Acute CHF (Acute) Discharge planning issues (Acute) DVT prophylaxis (Acute) Pneumonia (Acute) General weakness (Acute) Hypocalcemia (Acute) Hypomagnesemia (Acute) Encounter for blood test (Acute) Medical History (Updated 01/22/22 @ 15:24 by Cyndi Genao MD) Arthritis Atrial fibrillation CAD (coronary artery disease) COPD (chronic obstructive pulmonary disease) CVA (cerebral vascular accident) Gout Hypertension Myocardial infarction Obesity (BMI 30-39.9) Right wrist fracture Surgical History (Updated 01/22/22 @ 15:07 by Cyndi Genao MD) S/P cardiac cath [place] 2017 - no stents, per patient S/P left knee surgery Family History (Updated 01/22/22 @ 15:09 by Cyndi Genao MD) Mother Heart disease Diabetes Hypertension Paternal Grandmother Breast cancer Paternal Aunt Breast cancer Social History (Updated 01/22/22 @ 15:10 by Cyndi Genao MD) Smoking/Tobacco Use Status: Former Tobacco Use tobacco type: cigarettes Quit Date: 04/24/91 Pack-years: 90 Tobacco: How many years used: 45 Smoking risk assessment performed?: Yes Alcohol Intake: former Drug use: Never Substance use type: does not use Do you feel safe at home: Yes Do you feel safe in your relationship?: Yes Meds Allergies and Home Medications Allergies Allergy/AdvReac Type Severity Reaction Status Date / Time No Known Allergies Allergy Unverified 01/22/22 09:34 Home Medications Medication Instructions Recorded Confirmed Type acetaminophen 325 mg tablet 650 mg PO Q4H PRN PRN 12/31/21 01/22/22 History allopurinol 300 mg tablet 300 mg PO DAILY 12/31/21 01/22/22 History amlodipine 10 mg tablet 10 mg PO DAILY 12/31/21 01/22/22 History apixaban 5 mg tablet 5 mg PO BID 12/31/21 01/22/22 History aspirin 81 mg tablet,delayed 81 mg PO DAILY 12/31/21 01/22/22 History release atorvastatin 80 mg tablet 80 mg PO HS 12/31/21 01/22/22 History folic acid 1 mg tablet 1 mg PO DAILY 12/31/21 01/22/22 History furosemide 40 mg tablet 40 mg PO DAILY 12/31/21 01/22/22 History isosorbide mononitrate 30 mg 30 mg PO DAILY 12/31/21 01/22/22 History tablet,extended release 24 hr metoprolol succinate 200 mg 200 mg PO DAILY 12/31/21 01/22/22 History tablet,extended release 24 hr omeprazole 20 mg tablet,delayed 20 mg PO BID 12/31/21 01/22/22 History release potassium chloride 20 mEq 20 meq PO DAILY 12/31/21 01/22/22 History tablet,extended release amitriptyline 10 mg tablet 1 tab PO HS 01/22/22 01/22/22 History colchicine 0.6 mg capsule 0.6 mg PO HS 01/22/22 01/22/22 History ipratropium 20 mcg-albuterol 100 1 puff inhalation QID 01/22/22 01/22/22 History mcg/actuation mist for inhalation (Combivent Respimat) tramadol 50 mg tablet 50 mg PO Q6H PRN PRN 01/22/22 01/22/22 History Exam Narrative Exam Narrative: General: Pleasant obese elderly male who is A&Ox3, coughing (dry) Neurological: A&Ox3, no focal deficits Psychiatric: Appropriate speech pattern/content Skin: Visible skin intact HEENT: Atraumatic, normocephalic, EOMI, dry MM, clear oropharynx, no submandibular or cervical lymphadenopathy, no goiter or JVD Cardiovascular: irregularly irregular rhythm, no m/r/g Lungs: wheezing on expiration B Gastrointestinal: soft, nontender, nondistended Genitourinary: deferred Extremities: trace edema BLEs, trace pedal pulse BLEs, no c/c; tinea pedis Results Imaging Additional studies: CT head w/o contrast: No evidence of acute infarct CXR: Lungs: Increased markings in the right lung base are unchanged. No evidence of acute consolidation Pleural spaces: Unremarkable. No pleural effusion. No pneumothorax. Heart/Mediastinum: Stable cardiomegaly Vasculature: Aorta is tortuous and ectatic with atherosclerotic calcifications Bones/joints: Unremarkable. Labs Result diagrams: 01/22/22 09:42 01/22/22 11:30 Labs: Laboratory Results - last 24 hr 01/22/22 01/22/22 01/22/22 09:26 09:42 09:42 WBC RBC Hgb Hct MCV MCH MCHC RDW Plt Count MPV Immature Gran % Neutrophils % Lymphocytes % Monocytes % Eosinophils % Basophils % Nucleated RBC % Absolute Neutrophils Absolute Lymphocytes Absolute Monocytes Absolute Eosinophils Absolute Basophils PT INR APTT VBG pH VBG pCO2 VBG pO2 VBG HCO3 VBG Total CO2 VBG O2 Saturation VBG Base Excess VBG Lactate 3.1 H* Sodium 137 Potassium 3.6 Chloride 99 Carbon Dioxide 22.9 Anion Gap 15.1 H BUN 13 Creatinine 1.4 H Est GFR (CKD-EPI 2020) 52.41 Glucose 130 H Calcium 5.8 L* Phosphorus 4.6 Magnesium 0.4 L* Total Bilirubin 0.7 AST 27 ALT 17 Alkaline Phosphatase 159 H Troponin I < 50 NT-Pro-B Natriuret Pep 205 H Total Protein 7.8 Albumin 2.6 L Lipase Procalcitonin 11.6 COVID-19 Source SARS-CoV-2 (PCR) 01/22/22 01/22/22 01/22/22 09:42 09:42 09:42 WBC 9.86 RBC 4.82 Hgb 10.4 L Hct 35.6 L MCV 74 L MCH 21.6 L MCHC 29.2 L RDW 21.1 H Plt Count 385 MPV 9.8 Immature Gran % 0.7 Neutrophils % 82.0 Lymphocytes % 4.1 Monocytes % 11.7 Eosinophils % 0.6 Basophils % 0.9 Nucleated RBC % 0.0 Absolute Neutrophils 8.09 H Absolute Lymphocytes 0.40 L Absolute Monocytes 1.15 H Absolute Eosinophils 0.06 Absolute Basophils 0.09 PT 15.0 H INR 1.5 H APTT 43.6 H VBG pH 7.38 VBG pCO2 36 L VBG pO2 40 VBG HCO3 21 L VBG Total CO2 20 L VBG O2 Saturation 68 VBG Base Excess -4 L VBG Lactate Sodium Potassium Chloride Carbon Dioxide Anion Gap BUN Creatinine Est GFR (CKD-EPI 2020) Glucose Calcium Phosphorus Magnesium Total Bilirubin AST ALT Alkaline Phosphatase Troponin I NT-Pro-B Natriuret Pep Total Protein Albumin Lipase Procalcitonin COVID-19 Source SARS-CoV-2 (PCR) 01/22/22 01/22/22 01/22/22 09:46 10:23 11:06 WBC RBC Hgb Hct MCV MCH MCHC RDW Plt Count MPV Immature Gran % Neutrophils % Lymphocytes % Monocytes % Eosinophils % Basophils % Nucleated RBC % Absolute Neutrophils Absolute Lymphocytes Absolute Monocytes Absolute Eosinophils Absolute Basophils PT INR APTT VBG pH VBG pCO2 VBG pO2 VBG HCO3 VBG Total CO2 VBG O2 Saturation VBG Base Excess VBG Lactate Sodium Potassium Chloride Carbon Dioxide Anion Gap BUN Creatinine Est GFR (CKD-EPI 2020) Glucose Calcium Cancelled Phosphorus Magnesium Total Bilirubin AST ALT Alkaline Phosphatase Troponin I NT-Pro-B Natriuret Pep Total Protein Albumin Lipase 54 Procalcitonin COVID-19 Source Nasal/Nares SARS-CoV-2 (PCR) Negative 01/22/22 11:30 WBC RBC Hgb Hct MCV MCH MCHC RDW Plt Count MPV Immature Gran % Neutrophils % Lymphocytes % Monocytes % Eosinophils % Basophils % Nucleated RBC % Absolute Neutrophils Absolute Lymphocytes Absolute Monocytes Absolute Eosinophils Absolute Basophils PT INR APTT VBG pH VBG pCO2 VBG pO2 VBG HCO3 VBG Total CO2 VBG O2 Saturation VBG Base Excess VBG Lactate Sodium 138 Potassium 3.8 Chloride 99 Carbon Dioxide 23.1 Anion Gap 15.9 H BUN 15 Creatinine 1.4 H Est GFR (CKD-EPI 2020) 52.41 Glucose 116 H Calcium 6.4 L Phosphorus Magnesium 0.8 L Total Bilirubin AST ALT Alkaline Phosphatase Troponin I NT-Pro-B Natriuret Pep Total Protein Albumin Lipase Procalcitonin COVID-19 Source SARS-CoV-2 (PCR) Last Vital Signs Temp 36.9 C 01/22/22 09:17 Pulse 97 H 01/22/22 11:30 Resp 21 01/22/22 11:31 BP 112/69 01/22/22 11:30 Pulse Ox 93 01/22/22 11:31
[2022-01-22] MEDS: Magnesium Chloride 64 MG TABCR 128 MG PO ×2 (13:21→20:45)
[2022-01-22 13:47] LABS: Troponin I < 50 ng/L (<or=60)
[2022-01-22 15:44] LABS: Lactate 1.8 mmol/L (0.6-1.4)
[2022-01-22 16:57] LABS: C-Reactive Protein > 25.00 mg/dL (0.0-0.3)
[2022-01-22 16:58] LABS: ESR > 120 mm/hr (0-20)
[2022-01-22 17:07] LABS: Lab Add On Test DONE
[2022-01-22] MEDS: Hydrocortisone SOD SUC. 100 MG VIAL 50 MG IVP ×2 (17:53→23:51)
[2022-01-22] MEDS: Furosemide 40 MG/4 ML VIAL IVP (17:53)
[2022-01-22] MEDS: Ipratropium/Albuterol 4 GM 120 PUFF INH IH (20:02)
[2022-01-22] MEDS: PIPERACILLIN/TAZO 3.375 GM in Normal Saline 50 ML IVPB ×2 (20:02→23:51)
[2022-01-22] MEDS: Calcium Carbonate 1.5 GM TAB 3 GM PO (20:44)
[2022-01-22] MEDS: Omeprazole 20 MG CAPCR PO (20:44)
[2022-01-22] MEDS: Amitriptyline 10 MG TAB PO (20:44)
[2022-01-22] MEDS: traMADol 50 MG TAB PO (20:45)
[2022-01-22] MEDS: Atorvastatin 40 MG TAB 80 MG PO (20:46)
[2022-01-22] MEDS: Colchicine 0.6 MG TAB PO (20:46)
[2022-01-22] MEDS: Apixaban 5 MG TAB PO (20:47)
[2022-01-22] MEDS: guaiFENesin 600 MG TABCR PO (20:47)
[2022-01-22] MEDS: Acetaminophen 325 MG TAB PO (20:49)
[2022-01-22 21:21] LABS: Bilirubin Negative (Negative); Blood Negative (Negative); Clarity Clear (Clear); Glucose Negative (Negative); Ketones Negative (Negative); Leukocyte Esterase Negative (Negative); Nitrite Negative (Negative)
[2022-01-22 21:25] LABS: Bacteria Rare HPF (Negative); C & S Indicated? No; Casts Negative LPF (Negative); Crystals Negative HPF (Negative); Epithelial Cells Rare HPF (Negative); Mucus Negative (Negative); RBC Negative HPF (0-2); WBC Negative HPF (0-5)
[2022-01-22 21:49] LABS: COVID-19 PCR Negative (Negative); Influenza A PCR Negative (Negative); Influenza B PCR Negative (Negative); RSV PCR Negative (Negative)
[2022-01-22 21:56] LABS: Source Nasopharynx
[2022-01-23] VITALS (28 sets, daily range): BP systolic 93–147; BP diastolic 49–126; PULSE 68–115; RESP 13–36; TEMP 36.3–37.1; O2SAT 83–93
[2022-01-23] MEDS: Albuterol 2.5 MG/3 ML INH SOLN VIAL UPD (03:47)
[2022-01-23] MEDS: Albuterol/Ipratropium 3 ML UPD VIAL UPD (03:48)
[2022-01-23 05:44] LABS: Abs Immature Grans 0.07 10^3/uL (0.0-0.06); Absolute Basophil Count 0.01 10^3/uL (0.0-0.2); Absolute Lymphocyte Count 0.33 10^3/uL (1.2-3.4); Absolute Monocyte Count 0.29 10^3/uL (0.1-0.8); Absolute Neutrophil Count 7.48 10^3/uL (1.2-6.7); Basophils % 0.1; HCT 30.4 % (40.0-50.0); HGB 9.1 g/dL (13.5-17.5); Immature Grans % 0.9; MCHC 29.9 % (32.0-36.0); MCV 73 fL (80-95); MPV 9.8 fL (8.0-11.0); Monocytes % 3.5; Neutrophils % 91.5; Platelet Count 362 10^3/uL (130-400); RBC 4.14 10^6/uL (4.36-5.78); RDW 20.5 % (11.8-14.1); RDW-SD 53.6 fL; WBC 8.18 10^3/uL (4.4-10.8)
[2022-01-23 05:53] LABS: Anion Gap 14.6 mmol/L (3-11); BUN 25 mg/dL (7-18); CO2 21.4 mmol/L (21.0-32.0); CREATININE 1.5 mg/dL (0.70-1.30); Chloride 99 mmol/L (98-107); Estimated GFR 48.25 (mL/min/1.73m2); Glucose 161 mg/dL (74-106); Magnesium 1.4 mg/dL (1.8-2.4); Sodium 135 mmol/L (136-145)
[2022-01-23 05:56] LABS: Calcium 6.3 mg/dL (8.5-10.1)
[2022-01-23 06:10] LABS: Anisocytosis 2+; Hypochromasia 2+; Microcytosis 2+
[2022-01-23] MEDS: Ipratropium/Albuterol 4 GM 120 PUFF INH IH ×4 (07:59→19:50)
[2022-01-23] MEDS: Calcium Carbonate 1.5 GM TAB 3 GM PO ×2 (08:56→19:51)
[2022-01-23] MEDS: Isosorbide Mononitrate 30 MG TABCR PO (08:56)
[2022-01-23] MEDS: Allopurinol 300 MG TAB PO (08:57)
[2022-01-23] MEDS: guaiFENesin 600 MG TABCR PO ×2 (08:57→19:51)
[2022-01-23] MEDS: amLODIPine 10 MG TAB PO (08:57)
[2022-01-23] MEDS: Metoprolol CR 100 MG TABCR 200 MG PO (08:57)
[2022-01-23] MEDS: Magnesium Chloride 64 MG TABCR 128 MG PO ×2 (08:57→19:52)
[2022-01-23] MEDS: Potassium Chloride 20 MEQ TABCR 40 MEQ PO ×2 (08:57→19:51)
[2022-01-23] MEDS: Aspirin E.C. 81 MG TABEC PO (08:58)
[2022-01-23] MEDS: Omeprazole 20 MG CAPCR PO (08:58)
[2022-01-23] MEDS: Apixaban 5 MG TAB PO ×2 (08:58→19:51)
[2022-01-23] MEDS: Furosemide 40 MG/4 ML VIAL IVP (08:59)
[2022-01-23] MEDS: Folic Acid 1 MG TAB PO (08:59)
[2022-01-23] MEDS: Hydrocortisone SOD SUC. 100 MG VIAL 50 MG IVP ×3 (08:59→23:09)
[2022-01-23] MEDS: CALCIUM GLUCONATE in NaCl 1 GM/50 ML BAG IVPB (09:06)
--- NOTE | 2022-01-23 09:23 | W.PM.PROGNOT ---
Date of Service Date of service: 01/23/22 Time of Service: 09:23 Assessment and Plan Assessment and plan (1) Hypomagnesemia: Status: Acute Assessment and plan: Replete with PO and IV. Discussed with pharmacy - changed PPI to esomeprazole magnesium. Can transfer out of ICU. (2) Hypocalcemia: Status: Acute Assessment and plan: Replete PO and IV. Suspect this is due to hypomagnesemia. (3) Acute CHF: Status: Acute Assessment and plan: Much improved. Change lasix to PO. Monitor I/O's. Check echo. Transfer with orders for tele (4) General weakness: Status: Acute Assessment and plan: In setting of electrolyte abnormalities, suspected pneumonia, recent cessation of steroids (not used chronically). PT consulted. Continue stress dose steroids. Replete lytes. Treat suspected PNA. Await tick panel. (5) Pneumonia: Status: Acute Assessment and plan: Suspected based on reports of productive cough, high procalcitonin. Continue empiric abx (6) DVT prophylaxis: Status: Acute Assessment and plan: On eliquis (for h/o Afib) (7) Discharge planning issues: Status: Acute Assessment and plan: DNI, but not DNR per my conversation with the patient as witnessed by . The patient wants to make sure that, whatever [facility] are [facility] Transfer out of the [facility]. Subjective Subjective Interval history since last seen: Feels better. Breathing is better. No cough today. Energy is better. Not as dizzy. Denies chest pain, nausea. Joint pains better. No arrhythmic events overnight. O2 sats did dip into the 80s overnight, but per nursing, not enough to require O2. Exam Narrative Exam Narrative: General: Pleasant obese elderly male who is A&Ox3, not coughing today, looks better HEENT: EOMI, MMM Cardiovascular: irregularly irregular rhythm, no m/r/g Lungs: CTAB Gastrointestinal: soft, nontender, nondistended Extremities: no edema BLEs, trace pedal pulse BLEs Objective Last Vital Signs Temp 36.6 C 01/23/22 04:02 Pulse 94 H 01/23/22 04:02 Resp 25 H 01/23/22 04:02 BP 103/60 01/23/22 00:01 Pulse Ox 83 L 01/23/22 04:02 Laboratory Results - last 24 hr 01/22/22 01/22/22 01/22/22 09:26 09:42 09:42 WBC RBC Hgb Hct MCV MCH MCHC RDW Plt Count MPV Immature Gran % Neutrophils % Lymphocytes % Monocytes % Eosinophils % Basophils % Nucleated RBC % Absolute Neutrophils Absolute Lymphocytes Absolute Monocytes Absolute Eosinophils Absolute Basophils RBC Morphology Hypochromasia Anisocytosis Microcytosis ESR PT INR APTT VBG pH VBG pCO2 VBG pO2 VBG HCO3 VBG Total CO2 VBG O2 Saturation VBG Base Excess VBG Lactate 3.1 H* Sodium 137 Potassium 3.6 Chloride 99 Carbon Dioxide 22.9 Anion Gap 15.1 H BUN 13 Creatinine 1.4 H Est GFR (CKD-EPI 2020) 52.41 Glucose 130 H Calcium 5.8 L* Phosphorus 4.6 Magnesium 0.4 L* Total Bilirubin 0.7 AST 27 ALT 17 Alkaline Phosphatase 159 H Troponin I < 50 C-Reactive Protein NT-Pro-B Natriuret Pep 2051 H Total Protein 7.8 Albumin 2.6 L Lipase Procalcitonin 11.6 Urine Color Urine Clarity Urine pH Ur Specific Bronson Urine Protein Urine Ketones Urine Blood Urine Nitrite Urine Bilirubin Urine Urobilinogen Ur Leukocyte Esterase Urine RBC Urine WBC Ur Epithelial Cells Urine Crystals Urine Bacteria Urine Casts Urine Mucus Ur Culture Indicated? Urine Glucose COVID-19 Source SARS-CoV-2 (PCR) Influenza Type A (PCR) Influenza Type B (PCR) RSV (PCR) Add-On Test Request 01/22/22 01/22/22 01/22/22 09:42 09:42 09:42 WBC 9.86 RBC 4.82 Hgb 10.4 L Hct 35.6 L MCV 74 L MCH 21.6 L MCHC 29.2 L RDW 21.1 H Plt Count 385 MPV 9.8 Immature Gran % 0.7 Neutrophils % 82.0 Lymphocytes % 4.1 Monocytes % 11.7 Eosinophils % 0.6 Basophils % 0.9 Nucleated RBC % 0.0 Absolute Neutrophils 8.09 H Absolute Lymphocytes 0.40 L Absolute Monocytes 1.15 H Absolute Eosinophils 0.06 Absolute Basophils 0.09 RBC Morphology Hypochromasia Anisocytosis Microcytosis ESR PT 15.0 H INR 1.5 H APTT 43.6 H VBG pH 7.38 VBG pCO2 36 L VBG pO2 40 VBG HCO3 21 L VBG Total CO2 20 L VBG O2 Saturation 68 VBG Base Excess -4 L VBG Lactate Sodium Potassium Chloride Carbon Dioxide Anion Gap BUN Creatinine Est GFR (CKD-EPI 2020) Glucose Calcium Phosphorus Magnesium Total Bilirubin AST ALT Alkaline Phosphatase Troponin I C-Reactive Protein NT-Pro-B Natriuret Pep Total Protein Albumin Lipase Procalcitonin Urine Color Urine Clarity Urine pH Ur Specific Bronson Urine Protein Urine Ketones Urine Blood Urine Nitrite Urine Bilirubin Urine Urobilinogen Ur Leukocyte Esterase Urine RBC Urine WBC Ur Epithelial Cells Urine Crystals Urine Bacteria Urine Casts Urine Mucus Ur Culture Indicated? Urine Glucose COVID-19 Source SARS-CoV-2 (PCR) Influenza Type A (PCR) Influenza Type B (PCR) RSV (PCR) Add-On Test Request 01/22/22 01/22/22 01/22/22 09:46 10:23 11:06 WBC RBC Hgb Hct MCV MCH MCHC RDW Plt Count MPV Immature Gran % Neutrophils % Lymphocytes % Monocytes % Eosinophils % Basophils % Nucleated RBC % Absolute Neutrophils Absolute Lymphocytes Absolute Monocytes Absolute Eosinophils Absolute Basophils RBC Morphology Hypochromasia Anisocytosis Microcytosis ESR PT INR APTT VBG pH VBG pCO2 VBG pO2 VBG HCO3 VBG Total CO2 VBG O2 Saturation VBG Base Excess VBG Lactate Sodium Potassium Chloride Carbon Dioxide Anion Gap BUN Creatinine Est GFR (CKD-EPI 2020) Glucose Calcium Cancelled Phosphorus Magnesium Total Bilirubin AST ALT Alkaline Phosphatase Troponin I C-Reactive Protein NT-Pro-B Natriuret Pep Total Protein Albumin Lipase 54 Procalcitonin Urine Color Urine Clarity Urine pH Ur Specific Bronson Urine Protein Urine Ketones Urine Blood Urine Nitrite Urine Bilirubin Urine Urobilinogen Ur Leukocyte Esterase Urine RBC Urine WBC Ur Epithelial Cells Urine Crystals Urine Bacteria Urine Casts Urine Mucus Ur Culture Indicated? Urine Glucose COVID-19 Source Nasal/Nares SARS-CoV-2 (PCR) Negative Influenza Type A (PCR) Influenza Type B (PCR) RSV (PCR) Add-On Test Request 01/22/22 01/22/22 01/22/22 11:30 13:21 15:35 WBC RBC Hgb Hct MCV MCH MCHC RDW Plt Count MPV Immature Gran % Neutrophils % Lymphocytes % Monocytes % Eosinophils % Basophils % Nucleated RBC % Absolute Neutrophils Absolute Lymphocytes Absolute Monocytes Absolute Eosinophils Absolute Basophils RBC Morphology Hypochromasia Anisocytosis Microcytosis ESR PT INR APTT VBG pH VBG pCO2 VBG pO2 VBG HCO3 VBG Total CO2 VBG O2 Saturation VBG Base Excess VBG Lactate Sodium 138 Potassium 3.8 Chloride 99 Carbon Dioxide 23.1 Anion Gap 15.9 H BUN 15 Creatinine 1.4 H Est GFR (CKD-EPI 2020) 52.41 Glucose 116 H Calcium 6.4 L Phosphorus Magnesium 0.8 L Total Bilirubin AST ALT Alkaline Phosphatase Troponin I < 50 C-Reactive Protein NT-Pro-B Natriuret Pep Total Protein Albumin Lipase Procalcitonin Urine Color Urine Clarity Urine pH Ur Specific Bronson Urine Protein Urine Ketones Urine Blood Urine Nitrite Urine Bilirubin Urine Urobilinogen Ur Leukocyte Esterase Urine RBC Urine WBC Ur Epithelial Cells Urine Crystals Urine Bacteria Urine Casts Urine Mucus Ur Culture Indicated? Urine Glucose COVID-19 Source SARS-CoV-2 (PCR) Influenza Type A (PCR) Influenza Type B (PCR) RSV (PCR) Add-On Test Request DONE 01/22/22 01/22/22 01/22/22 15:35 15:35 15:35 WBC RBC Hgb Hct MCV MCH MCHC RDW Plt Count MPV Immature Gran % Neutrophils % Lymphocytes % Monocytes % Eosinophils % Basophils % Nucleated RBC % Absolute Neutrophils Absolute Lymphocytes Absolute Monocytes Absolute Eosinophils Absolute Basophils RBC Morphology Hypochromasia Anisocytosis Microcytosis ESR > 120 H PT INR APTT VBG pH VBG pCO2 VBG pO2 VBG HCO3 VBG Total CO2 VBG O2 Saturation VBG Base Excess VBG Lactate 1.8 H Sodium Potassium Chloride Carbon Dioxide Anion Gap BUN Creatinine Est GFR (CKD-EPI 2020) Glucose Calcium Phosphorus Magnesium Total Bilirubin AST ALT Alkaline Phosphatase Troponin I C-Reactive Protein > 25.00 H NT-Pro-B Natriuret Pep Total Protein Albumin Lipase Procalcitonin Urine Color Urine Clarity Urine pH Ur Specific Bronson Urine Protein Urine Ketones Urine Blood Urine Nitrite Urine Bilirubin Urine Urobilinogen Ur Leukocyte Esterase Urine RBC Urine WBC Ur Epithelial Cells Urine Crystals Urine Bacteria Urine Casts Urine Mucus Ur Culture Indicated? Urine Glucose COVID-19 Source SARS-CoV-2 (PCR) Influenza Type A (PCR) Influenza Type B (PCR) RSV (PCR) Add-On Test Request 01/22/22 01/22/22 01/23/22 20:52 20:56 05:15 WBC RBC Hgb Hct MCV MCH MCHC RDW Plt Count MPV Immature Gran % Neutrophils % Lymphocytes % Monocytes % Eosinophils % Basophils % Nucleated RBC % Absolute Neutrophils Absolute Lymphocytes Absolute Monocytes Absolute Eosinophils Absolute Basophils RBC Morphology Hypochromasia Anisocytosis Microcytosis ESR PT INR APTT VBG pH VBG pCO2 VBG pO2 VBG HCO3 VBG Total CO2 VBG O2 Saturation VBG Base Excess VBG Lactate Sodium 135 L Potassium 3.0 L Chloride 99 Carbon Dioxide 21.4 Anion Gap 14.6 H BUN 25 H Creatinine 1.5 H Est GFR (CKD-EPI 2020) 48.25 Glucose 161 H Calcium 6.3 L* Phosphorus Magnesium 1.4 L Total Bilirubin AST ALT Alkaline Phosphatase Troponin I C-Reactive Protein NT-Pro-B Natriuret Pep Total Protein Albumin Lipase Procalcitonin Urine Color Yellow Urine Clarity Clear Urine pH 6.0 Ur Specific Bronson 1.020 Urine Protein 100 H Urine Ketones Negative Urine Blood Negative Urine Nitrite Negative Urine Bilirubin Negative Urine Urobilinogen 1.0 H Ur Leukocyte Esterase Negative Urine RBC Negative Urine WBC Negative Ur Epithelial Cells Rare Urine Crystals Negative Urine Bacteria Rare Urine Casts Negative Urine Mucus Negative Ur Culture Indicated? No Urine Glucose Negative COVID-19 Source Nasopharynx SARS-CoV-2 (PCR) Negative Influenza Type A (PCR) Negative Influenza Type B (PCR) Negative RSV (PCR) Negative Add-On Test Request 01/23/22 05:15 WBC 8.18 RBC 4.14 L Hgb 9.1 L Hct 30.4 L MCV 73 L MCH 22.0 L MCHC 29.9 L RDW 20.5 H Plt Count 362 MPV 9.8 Immature Gran % 0.9 Neutrophils % 91.5 Lymphocytes % 4.0 Monocytes % 3.5 Eosinophils % 0.0 Basophils % 0.1 Nucleated RBC % 0.0 Absolute Neutrophils 7.48 H Absolute Lymphocytes 0.33 L Absolute Monocytes 0.29 Absolute Eosinophils 0.00 Absolute Basophils 0.01 RBC Morphology See Below Hypochromasia 2+ Anisocytosis 2+ Microcytosis 2+ ESR PT INR APTT VBG pH VBG pCO2 VBG pO2 VBG HCO3 VBG Total CO2 VBG O2 Saturation VBG Base Excess VBG Lactate Sodium Potassium Chloride Carbon Dioxide Anion Gap BUN Creatinine Est GFR (CKD-EPI 2020) Glucose Calcium Phosphorus Magnesium Total Bilirubin AST ALT Alkaline Phosphatase Troponin I C-Reactive Protein NT-Pro-B Natriuret Pep Total Protein Albumin Lipase Procalcitonin Urine Color Urine Clarity Urine pH Ur Specific Bronson Urine Protein Urine Ketones Urine Blood Urine Nitrite Urine Bilirubin Urine Urobilinogen Ur Leukocyte Esterase Urine RBC Urine WBC Ur Epithelial Cells Urine Crystals Urine Bacteria Urine Casts Urine Mucus Ur Culture Indicated? Urine Glucose COVID-19 Source SARS-CoV-2 (PCR) Influenza Type A (PCR) Influenza Type B (PCR) RSV (PCR) Add-On Test Request
[2022-01-23] MEDS: MAGNESIUM SULFATE 4 GM/100 ML BAG IVPB (09:31)
[2022-01-23] MEDS: PIPERACILLIN/TAZO 3.375 GM in Normal Saline 50 ML IVPB ×3 (09:53→19:50)
--- NOTE | 2022-01-23 09:59 | PDOC.CMIN ---
- If Service Date Differs Date of service: 01/23/22 Time of Service: 09:59 Care Management Initial Assess REASON FOR HOSPITALIZATION:: Severe hypocalcemia, hypomagnesemia PAST MEDICAL HISTORY/PAST SURGICAL HISTORY:: All Active Problems. Acute CHF (Acute). Discharge planning issues (Acute). DVT prophylaxis (Acute). Pneumonia (Acute). General weakness (Acute). Hypocalcemia (Acute). Hypomagnesemia (Acute). Encounter for blood test (Acute). Medical History. Arthritis. Atrial fibrillation. CAD (coronary artery disease). COPD (chronic obstructive pulmonary disease). CVA (cerebral vascular accident). Gout. Hypertension. Myocardial infarction. Obesity (BMI 30-39.9). Right wrist fracture. Surgical History. S/P cardiac cath. [place] 2016 - no stents, per patient. S/P left knee surgery PREVIOUS FUNCTIONAL STATUS/SOCIAL/FAMILY SUPPORTS:: Shreyas lives in [place] with his , Celia. 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 He is a , who states that he is 70% service connected. He receives his [facility] through the [facility] in [place]. He is independent with ADL's. CURRENT FUNCTIONAL STATUS:: Shreyas was sitting up in his chair when CM met with him. He expressed frustration with dealing with health concerns over the last several months. He stated that he was recently at another hospital, and was hoping that he would remain stable from that, but he has not been home long, and requires hospitalization again. He is agreeable to services, as long as the [facility] covers it completely. He stated that he had support from [facility], but he doesn't currently have any services at home. CM will continue to follow. ADVANCE DIRECTIVES:: None on file. Has patient been provided with info about the portal/API?: Yes Did the patient sign up for the portal?: No CODE STATUS:: DNI INSURANCE COVERAGE / FINANCIAL ISSUES:: IN CURRENT HOME/COMMUNITY SERVICES/EQUIPMENT:: No current services. PRIMARY CARE PHYSICIAN:: IN hospital POTENTIAL DISCHARGE NEEDS:: Evaluations for further needs, follow up appointments. PATIENT/FAMILY EDUCATION NEEDS:: Review discharge instructions and limitations, discussion of self care needs including ask me three'. ANTICIPATED BARRIERS TO DISCHARGE:: None identified. TRANSPORTATION:: Via private vehicle by his . PLAN:: Anticipate Shreyas will return home once medically cleared. His will drive him home via private vehicle. He will follow up with his PCP and discharge plan of care. CM will continue to follow.
--- NOTE | 2022-01-23 10:30 | IN_ITS ---
Date of service: 01/23/22 Time of Service: 10:00 PT Notes Visit Reasons: Severe Hypocalcemia and Hypomagnesemia Inpatient Physical Therapy Evaluation Date: January 23, 2022 Referring Doctor: Cyndi Genao PT Orders: PT CONSULT: Limited Ability Precautions: Standard, Falls Patient Profile/Admitting Diagnosis: Mr Jorgensen is a 76 year old male with PMHx of CAD s/p FL (no stents), non-oxygen dependent COPD, Afib on apixaban, CVA x 2, hypertension, gout, chronic pain, who presented to [facility] ED c/o 4 days of malaise and difficulty getting out of bed. PMHX: (Updated 01/22/22 @ 15:24 by Cyndi Genao MD) Acute CHF (Acute) Discharge planning issues (Acute) DVT prophylaxis (Acute) Pneumonia (Acute) General weakness (Acute) Hypocalcemia (Acute) Hypomagnesemia (Acute) Encounter for blood test (Acute) Medical History (Updated 01/22/22 @ 15:24 by Cyndi Genao MD) Arthritis Atrial fibrillation CAD (coronary artery disease) COPD (chronic obstructive pulmonary disease) CVA (cerebral vascular accident) Gout Hypertension Myocardial infarction Obesity (BMI 30-39.9) Right wrist fracture Surgical History (Updated 01/22/22 @ 15:07 by Cyndi Genao MD) S/P cardiac cath [place] 2017 - no stents, per patient S/P left knee surgery Social History/Home Situation: Shreyas lives in a 2 story home with his . He reports prior to admission he utilized a cane sometimes 2 canes to get around his home. Does have a walker however his home was built in the 1800's and does not allow for easy access due to narrow doorways to get around. He states that his grandson just installed a hand railing to enter his home in which he has 2 steps. He reports once in his home he does not have to go to the second level. Shreyas notes that he discontinued his home health services just recently for thought he was doing better. Current Functional Limitations: Generalized weakness with recent flar up with gout. Equipment Owned/DME: walker, wheelchair, canes, shower chair Subjective: Shreyas notes that he is feeling a bit stronger this morning. He is agreeable to PT consult this morning. Has not gotten a lot of rest. Objective: General Observation: IV access, telemetry, casted R UE due to R wrist fracture sustained s/p fall Mental Status: Alert and oriented x3 Pain: Declines any pain at time of PT consult ROM: Right Upper Extremity: Demonstrates WFL AROM of R shoulder, elbow. Unable to assess forearm and wrist due to cast Left Upper Extremity: Demonstrates WFL AROM of L UE. Right Lower Extremity: Demonstrates WFL A R LE ROM Left Lower Extremity:Demonstrates WFL A R LE ROM Strength: Right Upper Extremity: Shoulder flexion 4/5, Bicep 4/5, Demonstrates good functional grasp Left Upper Extremity: Demonstrates WFL strength L UE. Right Lower Extremity: Hip flexion 3+/5, knee flexion 4/5, knee extension 4/5, DF 4/5 Left Lower Extremity: Hip flexion 3+/5, knee flexion 4/5, knee extension 4/5, DF 4/5 Bed Mobility/Transfers: Sit-Stand: CGA Stand-sit: CGA Bed -chair CGA Gait: FWB, CGA bed to chair, noted legs felt weak Balance: Static Sitting: Normal Dynamic Sitting: Normal Static Standing: Fair Dynamic Standing: Poor Special Tests: Mobility Limitations Standardized Measure [facility] AM-PAC 6 clicks Basic Mobility Inpatient Short Form: Raw Score: 20 CMS Score: 36% Informed Consent/Education: Patient instructed in purpose of PT consult and plan of care. Assessment: Patient is a 76 year old male referred to physical therapy services with the diagnosis of severe hypocalcemia and hypomagnesemia. Patient presents with clinical signs and symptoms consistent with diagnosis, as demonstrated by the following impairment level findings: impaired LE strength, decreased functional mobility, diminished balance. Impairments are contributing to the following functional limitations: bilateral LE weakness, history of falls, decreased activity tolerance Patient is assessed as a Moderate 93041 complexity based on the following: History: As above Examination: As above Presentation: Evolving Decision Making: Moderate Goals: Goals X1 week 1. Supine-Sit Independent 2. Sit-Supine Independent 3. Sit-Stand Independent 4. Stand-Sit Independent 5. Bed-Chair Independent 6. Chair-Bed Independent 7. Gait 100 ft or greater with use of least restrictive assistive device as needed. 8. Stairs up/down 2-3 steps with use of railing 9. Improved static and dynamic standing balance to good Plan of Care/Treatment Plan: 1-2x/day, 7 days/week x 1 week. Plan of care has been reviewed with the HALF SECTION IRONER providing the service under Physical Therapy direction. Initiate Physical Therapy intervention for strengthening, bed mobility, transfers, gait, stairs, balance training, use of assistive device. DISCHARGE RECOMMENDATIONS: Home with Home Health Services- PT/OT to promote mobility and safety in home. TREATMENT CODE/TIME: 37059, IE, 10:00 AM 30 minutes NATHALIE Garcia [facility] Disclaimer: This note was created using [employer] voice recognition software. It was reviewed for major content. However, there may be multiple small discrepancies and errors due to the voice recognition aspects of the software.
[2022-01-23] MEDS: VANCOMYCIN/WATER (PEG) 1 GM/200 ML BAG IVPB (10:36)
[2022-01-23] MEDS: Ketoconazole 2% CREAM 15 GM TUBE TP (10:37)
[2022-01-23 10:49] LABS: Albumin 2.4 g/dL (3.4-5.0)
[2022-01-23] MEDS: Furosemide 40 MG TAB PO (16:28)
[2022-01-23 18:08] LABS: Legionella Ag Detection Urine Negative (Negative)
[2022-01-23] MEDS: Normal Saline Flush 10 ML SYR IVP (19:50)
[2022-01-23] MEDS: Esomeprazole 20 MG CAPCR PO (19:51)
[2022-01-23] MEDS: Atorvastatin 40 MG TAB 80 MG PO (19:51)
[2022-01-23] MEDS: Colchicine 0.6 MG TAB PO (19:51)
[2022-01-23] MEDS: Amitriptyline 10 MG TAB PO (19:51)
[2022-01-23 22:45] LABS: Lab Add On Test DONE
[2022-01-24] VITALS (11 sets, daily range): BP systolic 118–149; BP diastolic 72–86; PULSE 83–103; RESP 18–22; TEMP 36.3–36.7; O2SAT 86–95
[2022-01-24] MEDS: Normal Saline Flush 10 ML SYR IVP ×4 (02:27→21:02)
[2022-01-24] MEDS: PIPERACILLIN/TAZO 3.375 GM in Normal Saline 50 ML IVPB ×4 (02:30→21:02)
[2022-01-24] MEDS: Albuterol/Ipratropium 3 ML UPD VIAL UPD ×3 (02:33→21:26)
[2022-01-24] MEDS: VANCOMYCIN/WATER (PEG) 1 GM/200 ML BAG IVPB (04:20)
[2022-01-24] MEDS: Albuterol 2.5 MG/3 ML INH SOLN VIAL UPD (04:40)
[2022-01-24 07:08] LABS: Absolute Basophil Count 0.01 10^3/uL (0.0-0.2); Absolute Lymphocyte Count 0.31 10^3/uL (1.2-3.4); Absolute Monocyte Count 0.75 10^3/uL (0.1-0.8); Basophils % 0.1; HCT 28.7 % (40.0-50.0); HGB 8.6 g/dL (13.5-17.5); Immature Grans % 0.8; Lymphocytes % 2.6; MCH 22.1 pg (27.0-33.0); MCV 74 fL (80-95); MPV 10.1 fL (8.0-11.0); Monocytes % 6.3; Neutrophils % 90.2; Platelet Count 406 10^3/uL (130-400); RBC 3.89 10^6/uL (4.36-5.78); RDW 20.8 % (11.8-14.1); RDW-SD 54.6 fL; WBC 11.88 10^3/uL (4.4-10.8)
[2022-01-24 07:18] LABS: Absolute Neutrophil Count 10.72 10^3/uL (1.2-6.7)
[2022-01-24 07:26] LABS: ALT 23 U/L (16-63); AST 37 U/L (15-37); Albumin 2.4 g/dL (3.4-5.0); Alkaline Phosphatase 162 U/L (46-116); Anion Gap 16.2 mmol/L (3-11); BUN 25 mg/dL (7-18); Bilirubin, Direct 0.2 mg/dL (0.0-0.2); Bilirubin, Total 0.5 mg/dL (0.2-1.0); C-Reactive Protein 12.68 mg/dL (0.0-0.3); CO2 19.8 mmol/L (21.0-32.0); CREATININE 1.4 mg/dL (0.70-1.30); Calcium 6.8 mg/dL (8.5-10.1); Chloride 100 mmol/L (98-107); Estimated GFR 52.41 (mL/min/1.73m2); Glucose 132 mg/dL (74-106); Magnesium 1.8 mg/dL (1.8-2.4); Potassium 3.2 mmol/L (3.5-5.1); Sodium 136 mmol/L (136-145); Total Protein 7.1 g/dL (6.4-8.2)
[2022-01-24 07:31] LABS: Anisocytosis 2+; Diff Comment RBC Morph Reviewed; Microcytosis 2+
[2022-01-24 07:32] LABS: Hypochromasia 1+; Poikilocytes 2+
[2022-01-24] MEDS: Calcium Carbonate 1.5 GM TAB 3 GM PO ×2 (08:49→21:11)
[2022-01-24] MEDS: Apixaban 5 MG TAB PO ×2 (08:49→21:11)
[2022-01-24] MEDS: Metoprolol CR 100 MG TABCR 200 MG PO (08:49)
[2022-01-24] MEDS: Furosemide 40 MG TAB PO ×2 (08:49→15:38)
[2022-01-24] MEDS: Isosorbide Mononitrate 30 MG TABCR PO (08:49)
[2022-01-24] MEDS: Magnesium Chloride 64 MG TABCR 128 MG PO ×2 (08:49→21:11)
[2022-01-24] MEDS: Allopurinol 300 MG TAB PO (08:50)
[2022-01-24] MEDS: amLODIPine 10 MG TAB PO (08:50)
[2022-01-24] MEDS: Folic Acid 1 MG TAB PO (08:50)
[2022-01-24] MEDS: Esomeprazole 20 MG CAPCR PO ×2 (08:50→21:11)
[2022-01-24] MEDS: Aspirin E.C. 81 MG TABEC PO (08:50)
[2022-01-24] MEDS: guaiFENesin 600 MG TABCR PO ×2 (08:50→21:10)
[2022-01-24] MEDS: Potassium Chloride 20 MEQ TABCR 40 MEQ PO ×2 (08:50→21:10)
[2022-01-24] MEDS: Ipratropium/Albuterol 4 GM 120 PUFF INH IH ×4 (08:53→21:23)
--- NOTE | 2022-01-24 09:15 | CMPROGNOTE_ITS ---
- If Service Date Differs Date of service: 01/24/22 Time of Service: 09:15 Care Management Progress Note S/O: Shreyas is sitting up in bed eating his lunch when CM met with him. He is alert, oriented and easy to engage in conversation. He is agreeable to VNA services, on discharge and wants to be sure the [facility] will cover them? CM LMOM for [place] Real Property Appraiser/ Doreen and is awaiting a return call to discuss. Shreyas shares that he went to a [facility] a few years ago after her had a heart attack and 2 stro kes. He had an unfavorable experience with the [facility] paying for services and he will never go to a Rehab facility again. A: 76 year old male admitted to [facility] on 01/22/22 for Severe hypocalcemia, hypomagnesemia P:Anticipate, Shreyas will return home once medically cleared with [facility] RN/PT/OT/B2B OUTSIDE SALES REPRESENTATIVE. His will drive him home via private vehicle. He will follow up with his PCP and discharge plan of care. CM will continue to follow.
[2022-01-24] MEDS: MAGNESIUM SULFATE 2 GM/50 ML BAG IVPB (09:56)
[2022-01-24] MEDS: Hydrocortisone SOD SUC. 100 MG VIAL 50 MG IVP ×2 (09:56→21:03)
[2022-01-24 10:08] LABS: Lyme Ab w Rflx to Lyme Confirm Negative (Negative)
[2022-01-24 10:15] LABS: Parathyroid Hormone,Intact 83 pg/mL (19-88)
--- NOTE | 2022-01-24 10:30 | DI.US_ITS ---
APPROVED REPORT EXAM: Comprehensive 2D, Doppler, and color-flow Echocardiogram Patient Location: In-Patient Room/Bed: 208 Instrument Engineer: Emerita White RDCS (AE) Indications: CHF, CAD, COPD,A Fib, HTN Other Information Study Quality: Adequate Conclusion Normal left ventricular wall thickness and chamber size. Estimated ejection fraction is 55 to 60%. Wall motion is normal Normal right ventricular size and systolic function The left atrium is mildly dilated. The right atrium is normal in size Aortic valve is trileaflet and sclerotic with trace to mild regurgitation Mildly thickened mitral leaflets. Moderate mitral regurgitation Normal tricuspid valve with mild regurgitation. Estimated right ventricular systolic pressure is 32 mmHg Mildly dilated ascending aorta measuring 3.59 cm Wall motion Left Ventricle The left ventricle is normal size. The left ventricular systolic function is normal. The left ventric ular ejection fraction is within the normal range. There is normal left ventricular wall thickness. T here is normal LV segmental wall motion. There is no ventricular septal defect visualized. LVEF is 57 %. Right Ventricle The right ventricle is normal size. The right ventricular systolic function is normal. The RVSP is 31 .7mmHg. Atria Left atrium is mildly dilated. The right atrium size is normal. The interatrial septum is intact with no evidence for an atrial septal defect. Aortic Valve The Aortic valve is sclerotic. Aortic valve is trileaflet. There is no aortic valvular stenosis. Trac e to mild aortic regurgitation. Mitral Valve Mildly thickened mitral leaflets No evidence of mitral valve stenosis. moderate mitral regurgitation. Tricuspid Valve The tricuspid valve is normal in structure. There is no tricuspid valve stenosis. Mild tricuspid regu rgitation. Pulmonic Valve The pulmonary valve is normal in structure. There is no pulmonic valvular stenosis. Trace pulmonic re gurgitation. Great Vessels The aortic root is normal in size. The ascending aorta is mildly dilated. Aortic arch is not well vis ualized. IVC is normal in size and collapses >50% with inspiration. Pericardium There is no pericardial effusion. 2D Dimensions IVSD d PLAX 0.98 cm M: 0.6-1.2 LV Vol A2C d MOD 86.0 mL LVPW d PLAX 0.99 cm M: 0.6 - 1.2 LV Vol A4C d MOD 86.8 mL LVID d PLAX 4.48 cm M: 4.2 - 5.8 LA vol/ BSA A2C s A-L 27.8 mL/m2 LVDs 3.25 cm M: 2.5 - 4.0 LA vol/ BSA A4C s A-L 49.0 mL/m2 Ao Root d 3.50 cm M: 3.1 - 3.7 LA Vol/ BSA Biplane s A-L 39.1 mL/m2 RA Area A4C 18.89 cm2 LA Area A4C s MOD 27.21 cm2 RA Vol/ BSA A4C s A-L 26.3 mL/m2 LA Area A2C s MOD 19.37 cm2 Ao Asc Diam d 3.59 cm M: 2.6 - 3.4 LV EF A4C MOD 58.2 % LV EF Teichholz 51.9 % LV EF A2C MOD 55.9 % LVEF (Boland's) 56.26 % M: 52 - 72 LV EF Biplane MOD 56.3 % LV Volume 67.03 mL M: 62 - 150 SV 49.90 mL LV Volume Index 34.37 mL/m2 M: 34 - 74 SV Index 25.52 mL/m2 LV Vol Biplane MOD 88.7 mL FS 26.40 % M-Mode TAPSE 1.97 cm (M/F) >1.7 LV Diastology MV E' medial 0.077 (>0.07 m/s) MV E Vmax 1.11 (0.4-1.3 m/s) LV E/e MED 14.50 (<14) MV E' lateral 0.139 (>0.1 m/s) LV E/e LAT 8.00 (<14) MV E/E' medial 14.52 MV E/E' lateral 8.03 Aortic Valve LVOT Area 2.98 cm2 AoV Area Vmax 2.32 cm2 LVOT Vmax 1.01 m/s AoV Area/ BSA (Vmax) 1.19 cm2/m2 LVOT Mean Guillermo. 0.64 m/s COLIN Mean Guillermo. 2.08 cm2 LVOT Peak Grad 4.1 mmHg COLIN Mean Guillermo. Index 1.06 cm2/m2 LVOT Mean Grad 2.0 mmHg LVOT VTI 0.193 m LVOT Diam s 1.90 cm AoV Vmax 1.30 m/s Velocity Ratio 0.77 AoV Mean Guillermo. 0.92 m/s AoV Peak Grad 6.8 mmHg LVOT SV 57.45 mL AoV Mean Grad 3.8 mmHg AoV VTI 0.268 m AoV Area VTI 2.15 cm2 AoV Area/ BSA (VTI) 1.10 cm/m2 Mitral Valve MV DT 250 (160-240 msec) MR Vmax 5.25 m/s MV PHT 73 msec MR VTI 1.275 m MV Area PHT 3.03 cm2 MR Peak Grad 110.1 mmHg MV VTI 0.232 m MR Mean Grad 77.2 mmHg MV Area VTI 2.48 (4.0-6.0 cm2) Pulmonary Valve PV Vmax 1.12 (0.5-1.5 m/s) RVOT Peak Gr. 3.64 mmHg PV Peak Grad 5.0 mmHg RVOT Mean Gr. 1.95 mmHg PV Mean Grad 2.7 mmHg RVOT VTI 0.182 m PV VTI 0.164 m RVOT Vmax 0.95 m/s Tricuspid Valve TR Peak Grad 28.6 mmHg TR Vmax 2.68 m/s RA Pressure 3.00 mmHg RVSP (TR) 31.7 mmHg
[2022-01-24] MEDS: POTASSIUM CHLORIDE 20 MEQ/100 ML BAG IVPB (11:30)
--- NOTE | 2022-01-24 15:22 | PTTR_ITS ---
Date of service: 01/24/22 Time of Service: 14:18 PT Notes Visit Reasons: Severe Hypocalcemia and Hypomagnesemia Inpatient Physical Therapy Treatment Note [facility] Date: 01/24/2022 PRECAUTIONS: Activity as tolerated SUBJECTIVE: Shreyas is pleasant and agreeable to participating in PT. He reports that he is SOB with all activity. He reports that he has been busy all day getting washed up, walking to/from the bathroom, and his ECHO test. OBJECTIVE: PAIN: Patient c/o pain in L knee (which he attributes to gout) BED MOBILITY/TRANSFERS/GAIT: Declined due to fatigue THEREX: Patient was instructed in a LE strengthening program, completed in a long-sitting position, to include: ankle pumps, quad sets, glute sets, heel sli saw, and hip abduction. Patient requires frequent rests due to increased SOB. VITALS: SaO2: 87-89% on 3L O2 with ther ex and at rest. ASSESSMENT: Patient tolerated session well with some complaint of increased fatigue SOB with all activity. PLAN: Continue with general conditioning and gait training for continued progression toward baseline level of function. TREATMENT CODE/TIME: 20 minutes; 80199 (14:18) Patient not available for a.m. PT session, as patient was away at testing.
[2022-01-24] MEDS: Mylanta Suspension 30 ML CUP PO (17:00)
--- NOTE | 2022-01-24 17:03 | W.PM.PROGNOT ---
Date of Service Date of service: 01/24/22 Time of Service: 17:03 Assessment and Plan Assessment and plan (1) Chest pain: Status: Resolved Assessment and plan: Likely due to GERD (by description and response to mylanta). Continue PPI. Has prn mylanta. (2) Hypomagnesemia: Status: Acute Assessment and plan: Replete with PO and IV. Continue esomeprazole magnesium instead of omeprazole. (3) Hypocalcemia: Status: Acute Assessment and plan: Replete PO and IV. Corrected Ca is 8.2 today. Suspect this is due to hypomagnesemia. (4) Acute CHF: Status: Acute Assessment and plan: Much improved. Continue PO lasix. Monitor I/O's. Echo today with preserved LVEF (55-60%), normal wall motion, moderate mitral regurgitation, RVSP of 32 mmHg. Wean O2 as tolerated. (5) General weakness: Status: Acute Assessment and plan: In setting of electrolyte abnormalities, suspected pneumonia, recent cessation of steroids (not used chronically). PT consulted. Wean stress dose steroids. Replete lytes. Treat suspected PNA. Tick panel pending. (6) Pneumonia: Status: Acute Assessment and plan: Suspected based on reports of productive cough, high procalcitonin. Urine legionella negative. Urine strep and sputum mycoplasma are pending. Blood cx with NGTD. Recheck procalcitonin in am. (7) DVT prophylaxis: Status: Acute Assessment and plan: On eliquis (for h/o Afib) (8) Discharge planning issues: Status: Acute Assessment and plan: DNI, but not DNR per my conversation with the patient as witnessed by . The patient wants to make sure that, whatever services are ordered as outpatient, the [place] covers it. Continues to require hospitalization. Subjective Subjective Interval history since last seen: Mr Jorgensen states that he is having chest pain. Denies dizziness, SOB, nausea. Chest pain is L-sided, he cannot define it as either sharp or dull, but states it's like heart burn. It is not reproducible with palpation. Chest pain was relieved with mylanta. Exam Narrative Exam Narrative: General: Pleasant obese elderly male who is A&Ox3, appears comfortable, on O2 at 2.5 L HEENT: EOMI, MMM Cardiovascular: irregularly irregular rhythm, no m/r/g Lungs: CTAB Gastrointestinal: soft, nontender, nondistended Extremities: no edema BLEs, trace pedal pulse BLEs Objective Last Vital Signs Temp 36.7 C 01/24/22 15:24 Pulse 89 01/24/22 15:59 Resp 20 01/24/22 15:24 BP 133/82 01/24/22 15:24 Pulse Ox 91 L 01/24/22 15:24 Laboratory Results - last 24 hr 01/22/22 01/22/22 01/22/22 10:25 11:30 20:56 WBC RBC Hgb Hct MCV MCH MCHC RDW Plt Count MPV Immature Gran % Neutrophils % Lymphocytes % Monocytes % Eosinophils % Basophils % Nucleated RBC % Absolute Neutrophils Absolute Lymphocytes Absolute Monocytes Absolute Eosinophils Absolute Basophils RBC Morphology Hypochromasia Poikilocytosis Anisocytosis Microcytosis Sodium Potassium Chloride Carbon Dioxide Anion Gap BUN Creatinine Est GFR (CKD-EPI 2020) Glucose Calcium Magnesium Total Bilirubin Conjugated Bilirubin AST ALT Alkaline Phosphatase C-Reactive Protein Total Protein Albumin PTH Intact 83 Lyme Disease Antibody Negative Urine Legionella Ag Negative Add-On Test Request 01/23/22 01/24/22 01/24/22 05:15 06:10 06:10 WBC 11.88 H RBC 3.89 L Hgb 8.6 L Hct 28.7 L MCV 74 L MCH 22.1 L MCHC 30.0 L RDW 20.8 H Plt Count 406 H MPV 10.1 Immature Gran % 0.8 Neutrophils % 90.2 Lymphocytes % 2.6 Monocytes % 6.3 Eosinophils % 0.0 Basophils % 0.1 Nucleated RBC % 0.0 Absolute Neutrophils 10.72 H Absolute Lymphocytes 0.31 L Absolute Monocytes 0.75 Absolute Eosinophils 0.00 Absolute Basophils 0.01 RBC Morphology See Below Hypochromasia 1+ Poikilocytosis 2+ Anisocytosis 2+ Microcytosis 2+ Sodium 136 Potassium 3.2 L Chloride 100 Carbon Dioxide 19.8 L Anion Gap 16.2 H BUN 25 H Creatinine 1.4 H Est GFR (CKD-EPI 2020) 52.41 Glucose 132 H Calcium 6.8 L Magnesium 1.8 Total Bilirubin 0.5 Conjugated Bilirubin 0.2 AST 37 ALT 23 Alkaline Phosphatase 162 H C-Reactive Protein 12.68 H Total Protein 7.1 Albumin 2.4 L PTH Intact Lyme Disease Antibody Urine Legionella Ag Add-On Test Request DONE
[2022-01-24 18:05] LABS: Troponin I < 50 ng/L (<or=60)
[2022-01-24 20:33] LABS: Troponin I < 50 ng/L (<or=60)
[2022-01-24] MEDS: Colchicine 0.6 MG TAB PO (21:25)
[2022-01-24] MEDS: Atorvastatin 40 MG TAB 80 MG PO (21:25)
[2022-01-24] MEDS: Amitriptyline 10 MG TAB PO (21:26)
[2022-01-25] VITALS (11 sets, daily range): BP systolic 132–163; BP diastolic 75–85; PULSE 86–110; RESP 18–20; TEMP 36.1–36.8; O2SAT 89–94
[2022-01-25] MEDS: Normal Saline 500 ML 30 ML IV (01:47)
[2022-01-25] MEDS: PIPERACILLIN/TAZO 3.375 GM in Normal Saline 50 ML IVPB ×4 (01:47→20:29)
[2022-01-25 06:44] LABS: Abs Immature Grans 0.12 10^3/uL (0.0-0.06); Absolute Eosinophil Count 0.01 10^3/uL (0.0-0.7); Absolute Lymphocyte Count 0.41 10^3/uL (1.2-3.4); Absolute Monocyte Count 0.98 10^3/uL (0.1-0.8); Absolute Neutrophil Count 11.54 10^3/uL (1.2-6.7); Basophils % 0.2; Eosinophils % 0.1; HCT 30.7 % (40.0-50.0); HGB 9.1 g/dL (13.5-17.5); Immature Grans % 0.9; Lymphocytes % 3.1; MCH 22.1 pg (27.0-33.0); MCHC 29.6 % (32.0-36.0); MCV 75 fL (80-95); MPV 9.9 fL (8.0-11.0); Monocytes % 7.5; Neutrophils % 88.2; Nucleated RBC 0.2 % (0.0-0.3); Platelet Count 479 10^3/uL (130-400); RBC 4.12 10^6/uL (4.36-5.78); RDW 21.2 % (11.8-14.1); RDW-SD 55.7 fL; WBC 13.08 10^3/uL (4.4-10.8)
[2022-01-25 07:03] LABS: C-Reactive Protein 7.11 mg/dL (0.0-0.3); Magnesium 1.6 mg/dL (1.8-2.4)
[2022-01-25 07:15] LABS: Iron 17 ug/dL (65-175); Total Iron Binding Capacity 278 ug/dL (250-450); Transferrin Sat 6 % (20-55)
[2022-01-25 07:20] LABS: Absolute Basophil Count 0.03 10^3/uL (0.0-0.2)
[2022-01-25 07:21] LABS: Anisocytosis 1+; Hypochromasia 1+; Microcytosis 1+; Polychromasia Present
[2022-01-25 07:22] LABS: Poikilocytes 1+
[2022-01-25 07:32] LABS: Procalcitonin 1.3 ng/mL
[2022-01-25 07:36] LABS: Vitamin B12 659 pg/mL (193-986)
[2022-01-25 07:45] LABS: Anion Gap 15.5 mmol/L (3-11); BUN 17 mg/dL (7-18); CO2 20.5 mmol/L (21.0-32.0); CREATININE 1.1 mg/dL (0.70-1.30); Calcium 7.3 mg/dL (8.5-10.1); Chloride 106 mmol/L (98-107); Estimated GFR 70.01 (mL/min/1.73m2); Ferritin 70 ng/mL (26-388); Glucose 112 mg/dL (74-106); Sodium 142 mmol/L (136-145)
[2022-01-25 07:46] LABS: Potassium 2.8 mmol/L (3.5-5.1)
[2022-01-25] MEDS: Ipratropium/Albuterol 4 GM 120 PUFF INH IH ×4 (07:47→20:29)
[2022-01-25] MEDS: MAGNESIUM SULFATE 4 GM/100 ML BAG IVPB (08:45)
[2022-01-25] MEDS: Hydrocortisone SOD SUC. 100 MG VIAL 50 MG IVP (08:46)
[2022-01-25] MEDS: Folic Acid 1 MG TAB PO (08:47)
[2022-01-25] MEDS: Metoprolol CR 100 MG TABCR 200 MG PO (08:47)
[2022-01-25] MEDS: Esomeprazole 20 MG CAPCR PO ×2 (08:47→20:30)
[2022-01-25] MEDS: Magnesium Chloride 64 MG TABCR 128 MG PO ×2 (08:47→20:30)
[2022-01-25] MEDS: guaiFENesin 600 MG TABCR PO ×2 (08:48→20:30)
[2022-01-25] MEDS: Calcium Carbonate 1.5 GM TAB 3 GM PO ×2 (08:48→20:30)
[2022-01-25] MEDS: Allopurinol 300 MG TAB PO (08:48)
[2022-01-25] MEDS: Apixaban 5 MG TAB PO ×2 (08:48→20:30)
[2022-01-25] MEDS: Aspirin E.C. 81 MG TABEC PO (08:48)
[2022-01-25] MEDS: Potassium Chloride 20 MEQ TABCR 40 MEQ PO ×3 (08:48→20:30)
[2022-01-25] MEDS: Furosemide 40 MG TAB PO ×2 (08:49→16:33)
[2022-01-25] MEDS: amLODIPine 10 MG TAB PO (08:50)
[2022-01-25] MEDS: Ketoconazole 2% CREAM 15 GM TUBE TP (08:50)
[2022-01-25] MEDS: Isosorbide Mononitrate 30 MG TABCR PO (08:50)
--- NOTE | 2022-01-25 09:03 | PDOC.CMPRO ---
- If Service Date Differs Date of service: 01/25/22 Time of Service: 09:03 Care Management Progress Note S/O: Shreyas was sitting in his chair watching TV when CM met with his. He is alert, oriented and able to engage in conversation. Shreyas would be willing to have Home Health services following discharge, however he is not willing to pay for them. Per Doreen from the [place], Shreyas's inpatient hospital stay is covered by the [facility], however outpatient services are not covered. Services through [facility] [facility] will be billed through Medicare part A. and there is a 20% copay. Per Doreen, if there is a supervisor intermediates need for VNA services, the [facility] will fiber picker the cost after the Medicare benefit is exhausted. A: 76 year old male admitted to [facility] on 01/22/22 for Severe hypocalcemia, hypomagnesemia P:Anticipate, Shreyas will return home once medically cleared. New O/E VNA RN/PT/OT/PLUG MAKING OPERATOR, however patient declines VNA orders. His will drive him home via private vehicle. He will follow up with his PCP and discharge plan of care. CM will continue to follow.
[2022-01-25] MEDS: POTASSIUM CHLORIDE 20 MEQ/100 ML BAG 50 MEQ IVPB ×2 (10:08→12:31)
[2022-01-25] MEDS: Albuterol 2.5 MG/3 ML INH SOLN VIAL UPD (12:22)
--- NOTE | 2022-01-25 12:40 | W.PM.PROGNOT ---
Date of Service Date of service: 01/25/22 Time of Service: 12:40 Assessment and Plan Assessment and plan (1) Pneumonia: Status: Acute Assessment and plan: Present on admission, not seen on CXR but has it clinically (Productive cough, high procalcitonin). Improving on zosyn. Procalcitonin is better. Repeat sputum culture. So far, blood cx w/ NGTD and original sputum C&S with normal steve. Urine legionella negative. Urine strep and sputum mycoplasma are still pending. Continue zosyn, trend procalcitonin. On a steroid taper given wheezing and suspected underlying COPD exacerbation as well. (2) Acute on chronic diastolic (congestive) heart failure: Status: Acute Assessment and plan: Much improved. Continue PO lasix. Monitor I/O's. Echo with preserved LVEF (55-60%), normal wall motion, moderate mitral regurgitation, RVSP of 32 mmHg. Wean O2 as tolerated. (3) Diarrhea: Status: Acute Assessment and plan: R/o C. diff could be due to magnesium supplementation. (4) Hypomagnesemia: Status: Acute Assessment and plan: Replete with PO and IV. Continue esomeprazole magnesium instead of omeprazole. (5) Hypocalcemia: Status: Acute Assessment and plan: Replete PO. Suspect this is due to hypomagnesemia. (6) Hypokalemia: Status: Acute Assessment and plan: Replete. Repleting magnesium also. (7) General weakness: Status: Acute Assessment and plan: In setting of electrolyte abnormalities, suspected pneumonia, recent cessation of steroids (not used chronically). COmponent of adrenal insufficiency on presentation is possible. PT consulted. Improving. Replete lytes. Treat PNA. Tick panel pending. (8) Chest pain: Status: Resolved Assessment and plan: Likely due to GERD (by description and response to mylanta). Continue PPI. Has prn mylanta. (9) DVT prophylaxis: Status: Acute Assessment and plan: On eliquis (for h/o Afib) (10) Discharge planning issues: Status: Acute Assessment and plan: DNI, but not DNR per my conversation with the patient as witnessed by . The patient wants to make sure that, whatever services are ordered as outpatient, the [facility] covers it. Continues to require hospitalization. Subjective Subjective Interval history since last seen: Mr Davignon states that he is feeling better today. He has more energy and feels stronger. He does report a productive cough today with a lot of yellow sputum. Denies dizziness, chest pain, nausea. Reports diarrhea. Exam Narrative Exam Narrative: General: Pleasant obese elderly male who is A&Ox3, Looks better, sitting up in a chair and eating, on 3L of O2 by NC. HEENT: EOMI, MMM Cardiovascular: irregularly irregular rhythm, no m/r/g Lungs: wheezing on expiration B Gastrointestinal: soft, nontender, nondistended Extremities: no edema BLEs, trace pedal pulse BLEs Objective Last Vital Signs Temp 36.3 C L 01/25/22 11:46 Pulse 95 H 01/25/22 11:46 Resp 18 01/25/22 11:46 BP 136/76 01/25/22 11:46 Pulse Ox 92 01/25/22 12:12 Laboratory Results - last 24 hr 01/24/22 01/24/22 01/25/22 17:30 20:01 05:57 WBC RBC Hgb Hct MCV MCH MCHC RDW Plt Count MPV Immature Gran % Neutrophils % Lymphocytes % Monocytes % Eosinophils % Basophils % Nucleated RBC % Absolute Neutrophils Absolute Lymphocytes Absolute Monocytes Absolute Eosinophils Absolute Basophils RBC Morphology Polychromasia Hypochromasia Poikilocytosis Anisocytosis Microcytosis Sodium Potassium Chloride Carbon Dioxide Anion Gap BUN Creatinine Est GFR (CKD-EPI 2020) Glucose Calcium Magnesium 1.6 L Iron TIBC Transferrin % Sat Ferritin Troponin I < 50 < 50 C-Reactive Protein 7.11 H Vitamin B12 Folate Procalcitonin 01/25/22 01/25/22 01/25/22 05:57 05:57 05:57 WBC 13.08 H RBC 4.12 L Hgb 9.1 L Hct 30.7 L MCV 75 L MCH 22.1 L MCHC 29.6 L RDW 21.2 H Plt Count 479 H MPV 9.9 Immature Gran % 0.9 Neutrophils % 88.2 Lymphocytes % 3.1 Monocytes % 7.5 Eosinophils % 0.1 Basophils % 0.2 Nucleated RBC % 0.2 Absolute Neutrophils 11.54 H Absolute Lymphocytes 0.41 L Absolute Monocytes 0.98 H Absolute Eosinophils 0.01 Absolute Basophils 0.03 RBC Morphology See Below Polychromasia Present Hypochromasia 1+ Poikilocytosis 1+ Anisocytosis 1+ Microcytosis 1+ Sodium 142 Potassium 2.8 L* Chloride 106 Carbon Dioxide 20.5 L Anion Gap 15.5 H BUN 17 Creatinine 1.1 Est GFR (CKD-EPI 2020) 70.01 Glucose 112 H Calcium 7.3 L Magnesium Iron TIBC Transferrin % Sat Ferritin 70 Troponin I C-Reactive Protein Vitamin B12 Folate Procalcitonin 1.3 01/25/22 01/25/22 05:57 05:57 WBC RBC Hgb Hct MCV MCH MCHC RDW Plt Count MPV Immature Gran % Neutrophils % Lymphocytes % Monocytes % Eosinophils % Basophils % Nucleated RBC % Absolute Neutrophils Absolute Lymphocytes Absolute Monocytes Absolute Eosinophils Absolute Basophils RBC Morphology Polychromasia Hypochromasia Poikilocytosis Anisocytosis Microcytosis Sodium Potassium Chloride Carbon Dioxide Anion Gap BUN Creatinine Est GFR (CKD-EPI 2020) Glucose Calcium Magnesium Iron 17 L TIBC 278 Transferrin % Sat 6 L Ferritin Troponin I C-Reactive Protein Vitamin B12 659 Folate 18.0 Procalcitonin
[2022-01-25] MEDS: predniSONE 20 MG TAB 40 MG PO (14:13)
--- NOTE | 2022-01-25 14:13 | PT.INTREAT ---
Date of service: 01/25/22 Time of Service: 09:26 PT Notes Visit Reasons: Severe Hypocalcemia and Hypomagnesemia Inpatient Physical Therapy Treatment Note [facility] Date: 01/25/2022 PRECAUTIONS: Activity as tolerated SUBJECTIVE: Shreyas is pleasant and agreeable to participating in PT. He reports that he is SOB with all activity and feels that his balance is a little off. He reports that feels tired today, but will do what he can. OBJECTIVE: PAIN: No c/o pain BED MOBILITY/TRANSFERS: Supine-sit: S Sit-stand: SBA Stand-sit: CGA - Min A due to LOB in both a.m. and p.m. GAIT: Assistive device: FWW Weight bearing: Full Assist: CGA - SBA Distance: 150' in a.m.; ~100' in p.m. Deviation: Increased SOB, increased fatigue; per nursing, increased HR (~130's bpm) in p.m. THEREX: Patient declined seated exercises due to fatigue ASSESSMENT: Patient tolerated session with complaint of increased fatigue and SOB with all activity. He demonstrates LOB with [id number] transfer in both a.m. and p.m. PLAN: Continue with general conditioning and gait training for continued progression toward baseline level of function. TREATMENT CODE/TIME: Session 1: 15 minutes; 61422 (09:26) Session 2: 15 minutes; 97059 (13:43)
[2022-01-25 16:04] LABS: Streptococcus Pneumoniae Ag, U Negative (Negative)
--- NOTE | 2022-01-25 17:42 | CHAPLAIN ---
Shreyas was up in the chair watching tv when I visited. He seemed unsure about having a visit from a lehr stripper, but engaged in a short conversation with me. Shreyas said he's from [facility] and that he's been able to be in touch with family.
[2022-01-25 19:40] LABS: Anaplasma phagocytophilum Negative (Negative); B. miyamotoi PCR Negative (Negative); Babesia divergens/MO-1 Negative (Negative); Babesia duncani Negative (Negative); Babesia microti Negative (Negative); Ehrlichia chaffeensis Negative (Negative); Ehrlichia ewingii/canis Negative (Negative); Ehrlichia muris eauclairensis Negative (Negative)
[2022-01-25] MEDS: Normal Saline Flush 10 ML SYR IVP (20:29)
[2022-01-25 20:46] LABS: C Diff PCR Negative (Negative)
[2022-01-25] MEDS: Colchicine 0.6 MG TAB PO (21:35)
[2022-01-25] MEDS: Amitriptyline 10 MG TAB PO (21:35)
[2022-01-25] MEDS: Atorvastatin 40 MG TAB 80 MG PO (21:35)
[2022-01-26] VITALS (10 sets, daily range): BP systolic 127–169; BP diastolic 73–87; PULSE 78–112; RESP 18–20; TEMP 35.7–36.6; O2SAT 90–97
[2022-01-26] MEDS: PIPERACILLIN/TAZO 3.375 GM in Normal Saline 50 ML IVPB ×4 (01:30→19:46)
[2022-01-26 06:59] LABS: Abs Immature Grans 0.18 10^3/uL (0.0-0.06); Absolute Basophil Count 0.02 10^3/uL (0.0-0.2); Absolute Monocyte Count 0.83 10^3/uL (0.1-0.8); Basophils % 0.2; HCT 30.4 % (40.0-50.0); HGB 8.9 g/dL (13.5-17.5); Immature Grans % 1.6; Lymphocytes % 4.6; MCH 21.9 pg (27.0-33.0); MCHC 29.3 % (32.0-36.0); MCV 75 fL (80-95); MPV 9.6 fL (8.0-11.0); Monocytes % 7.4; Neutrophils % 86.2; Nucleated RBC 0.2 % (0.0-0.3); Platelet Count 474 10^3/uL (130-400); RBC 4.07 10^6/uL (4.36-5.78); RDW 20.7 % (11.8-14.1); RDW-SD 55.2 fL
[2022-01-26 07:13] LABS: Absolute Lymphocyte Count 0.52 10^3/uL (1.2-3.4); Absolute Neutrophil Count 9.65 10^3/uL (1.2-6.7); Anion Gap 9.1 mmol/L (3-11); BUN 17 mg/dL (7-18); C-Reactive Protein 4.46 mg/dL (0.0-0.3); CO2 24.9 mmol/L (21.0-32.0); Calcium 8.3 mg/dL (8.5-10.1); Chloride 106 mmol/L (98-107); Estimated GFR 78.49 (mL/min/1.73m2); Glucose 104 mg/dL (74-106); Magnesium 1.7 mg/dL (1.8-2.4); Potassium 3.6 mmol/L (3.5-5.1); Sodium 140 mmol/L (136-145)
[2022-01-26 07:22] LABS: Anisocytosis 2+; Diff Comment RBC Morph Reviewed
[2022-01-26 07:23] LABS: Poikilocytes 2+
[2022-01-26] MEDS: Ipratropium/Albuterol 4 GM 120 PUFF INH IH ×4 (07:42→19:46)
[2022-01-26] MEDS: Potassium Chloride 20 MEQ TABCR 40 MEQ PO ×3 (07:56→19:47)
[2022-01-26] MEDS: Metoprolol CR 100 MG TABCR 200 MG PO (07:56)
[2022-01-26] MEDS: Aspirin E.C. 81 MG TABEC PO (07:56)
[2022-01-26] MEDS: Magnesium Chloride 64 MG TABCR 128 MG PO ×2 (07:56→19:47)
[2022-01-26] MEDS: Folic Acid 1 MG TAB PO (07:57)
[2022-01-26] MEDS: amLODIPine 10 MG TAB PO (07:57)
[2022-01-26] MEDS: Esomeprazole 20 MG CAPCR PO ×2 (07:57→19:47)
[2022-01-26] MEDS: Furosemide 40 MG TAB PO (07:57)
[2022-01-26] MEDS: Allopurinol 300 MG TAB PO (07:57)
[2022-01-26] MEDS: Calcium Carbonate 1.5 GM TAB 3 GM PO ×2 (07:57→19:47)
[2022-01-26] MEDS: guaiFENesin 600 MG TABCR PO ×2 (07:57→19:47)
[2022-01-26] MEDS: predniSONE 20 MG TAB 40 MG PO (07:57)
[2022-01-26] MEDS: Isosorbide Mononitrate 30 MG TABCR PO (07:57)
[2022-01-26] MEDS: Apixaban 5 MG TAB PO ×2 (07:57→19:47)
[2022-01-26] MEDS: Normal Saline Flush 10 ML SYR IVP (07:58)
[2022-01-26] MEDS: Ketoconazole 2% CREAM 15 GM TUBE TP (07:59)
[2022-01-26 08:24] LABS: Lab Add On Test DONE
[2022-01-26 08:41] LABS: Albumin 2.6 g/dL (3.4-5.0)
[2022-01-26] MEDS: MAGNESIUM SULFATE 2 GM/50 ML BAG IVPB (08:54)
[2022-01-26] MEDS: Furosemide 20 MG/2 ML VIAL IVP (10:57)
--- NOTE | 2022-01-26 13:41 | PTTR_ITS ---
Date of service: 01/26/22 Time of Service: 10:41 PT Notes Visit Reasons: Severe Hypocalcemia and Hypomagnesemia Inpatient Physical Therapy Treatment Note [facility] Date: 01/26/2022 PRECAUTIONS: Activity as tolerated SUBJECTIVE: Shreyas is pleasant and agreeable to participating in PT. He reports that he is feeling better today. OBJECTIVE: PAIN: No c/o pain BED MOBILITY/TRANSFERS: Sit-stand: SBA Stand-sit: SBA GAIT: Assistive device: FWW in a.m.; Quadcane in p.m. Weight bearing: Full Assist: SBA Distance: 150' with FWW in a.m.; 150' with SPC in p.m. Deviation: Increased SOB, increased fatigue THEREX/NEURO RE-ED: Patient was instructed in a balance retraining program, to include: static standing with feet close together with cervical flexion/extension x5, tandem stance ~x10 seconds L/R, tandem walking x5 steps L/R, unable to maintain SLS for more than 2 seconds bilaterally, lateral stepping 2x10' L/R, and forward/backward walking 2x6'. Patient requires CGA throughout for safety. TOILETING: Patient toileted utilizing handheld urinal with SBA for safety STAIRS: Up/down 3x4' and 2x6 using B rails and a step-to pattern with SBA ASSESSMENT: Patient tolerated session with complaint of increased fatigue and SOB with all activity. He demonstrates improved mobility, tolerating increased gait distance with SPC support and SBA in p.m. He demonstrates diminished static and dynamic balance, with continued risk for falls at this time. PLAN: Continue with balance retraining for improved safety with functional mo bility and tasks, as well as general conditioning for improved activity tolerance. TREATMENT CODE/TIME: Session 1: 23 minutes; 23039 x2 (10:41) Session 2: 31 minutes; 80221 x2 (12:46)
--- NOTE | 2022-01-26 15:37 | PDOC.CMPRO ---
- If Service Date Differs Date of service: 01/26/22 Time of Service: 15:37 Care Management Progress Note S/O: Shreyas was sitting in his chair watching TV when CM met with his. He is alert, oriented and able to engage in conversation. CM spoke with Reena from [facility] who reviewed his insurance. Per Reena it looks to her like there is a $0 deductible through his Medicare Part A benefit. To be sure, she transferred this feature writer to Yudy in their billing office who was able to confirm that Shreyas has a $0 deductible through Medicare part A. Yudy reports that it's safe to share with Shreyas that he will not receive a bill for HH services. Shreyas states that he will consider VNA services after discharge but he's not sure that he needs them or wants them because he's feeling pretty good. A: 76 year old male admitted to [facility] on 01/22/22 for Severe hypocalcemia, hypomagnesemia P:Anticipate, Shreyas will return home once medically cleared. New [facility] RN/PT/OT/WATERFRONT DIRECTOR, are recommended. His will drive him home via private vehicle. He will follow up with his PCP and discharge plan of care. CM will continue to follow.
[2022-01-26] MEDS: Furosemide 20 MG TAB 60 MG PO (16:29)
--- NOTE | 2022-01-26 18:50 | W.PM.PROGNOT ---
Date of Service Date of service: 01/26/22 Time of Service: 11:30 Assessment and Plan Assessment and plan (1) Pneumonia: Status: Acute Assessment and plan: Present on admission, not seen on CXR but has it clinically (Productive cough, high procalcitonin). Continue zosyn. Procalcitonin is better. Repeat sputum culture pending. So far, blood cx w/ NGTD and original sputum C&S with normal steve. Urine legionella negative. Urine strep ag negative. Sputum mycoplasma still pending. Continue zosyn, trend procalcitonin. On a steroid taper given wheezing and suspected underlying COPD exacerbation as well. (2) Acute on chronic diastolic (congestive) heart failure: Status: Acute Assessment and plan: Continue PO lasix but increase dose to 60 mg PO BID as did sound more wet today. Monitor I/O's. Echo with preserved LVEF (55-60%), normal wall motion, moderate mitral regurgitation, RVSP of 32 mmHg. Wean O2 as tolerated. (3) Diarrhea: Status: Acute Assessment and plan: C. diff negative. prn loperamide written. could be due to magnesium supplementation. (4) Hypomagnesemia: Status: Acute Assessment and plan: Replete with PO and IV. Continue esomeprazole magnesium instead of omeprazole. (5) Hypocalcemia: Status: Acute Assessment and plan: Replete PO. Suspect this is due to hypomagnesemia. (6) Hypokalemia: Status: Resolved Assessment and plan: Recheck in am. (7) General weakness: Status: Acute Assessment and plan: In setting of electrolyte abnormalities, suspected pneumonia, recent cessation of steroids (not used chronically). COmponent of adrenal insufficiency on presentation is possible. PT consulted. Improving. Replete lytes. Treat PNA. Tick panel negative. (8) Chest pain: Status: Resolved Assessment and plan: Likely due to GERD (by description and response to mylanta). Continue PPI. Has prn mylanta. (9) DVT prophylaxis: Status: Acute Assessment and plan: On eliquis (for h/o Afib) (10) Discharge planning issues: Status: Acute Assessment and plan: DNI, but not DNR per my conversation with the patient as witnessed by . The patient wants to make sure that, whatever services are ordered as outpatient, [facility]. Anticipate discharge home tomorrow in 24-48 hrs. Subjective Subjective Interval history since last seen: Mr Jorgensen states he is feeling better today. His breathing is better, but last night he had a lot of productive cough which kept him up. He is feeling stronger. He denies dizziness, chest pain, nausea. Exam Narrative Exam Narrative: General: Pleasant obese elderly male who is A&Ox3, Looks better, sitting up in a chair and eating, on 3L of O2 by NC. HEENT: EOMI, MMM Cardiovascular: irregularly irregular rhythm, no m/r/g Lungs: wheezing on expiration B Gastrointestinal: soft, nontender, nondistended Extremities: trace edema BLEs, trace pedal pulse BLEs Objective Last Vital Signs Temp 36.5 C 01/26/22 15:11 Pulse 88 01/26/22 15:11 Resp 18 01/26/22 15:11 BP 138/73 01/26/22 15:11 Pulse Ox 97 01/26/22 15:11 Laboratory Results - last 24 hr 01/22/22 01/25/22 01/26/22 11:30 19:42 06:36 WBC RBC Hgb Hct MCV MCH MCHC RDW Plt Count MPV Immature Gran % Neutrophils % Lymphocytes % Monocytes % Eosinophils % Basophils % Nucleated RBC % Absolute Neutrophils Absolute Lymphocytes Absolute Monocytes Absolute Eosinophils Absolute Basophils RBC Morphology Poikilocytosis Anisocytosis Sodium 140 Potassium 3.6 Chloride 106 Carbon Dioxide 24.9 Anion Gap 9.1 BUN 17 Creatinine 1.0 Est GFR (CKD-EPI 2020) 78.49 Glucose 104 Calcium 8.3 L Magnesium 1.7 L C-Reactive Protein 4.46 H Albumin Stl C.difficile Tox PCR Negative A.phagocytophil DNA PCR Negative B. divergens/MO-1 PCR Negative Babesia duncani (PCR) Negative Babesia microti DNA PCR Negative Borrelia (PCR) Negative E.chaffeensis DNA (PCR) Negative E.ewingii/canis DNA PCR Negative E. muris-like DNA (PCR) Negative Add-On Test Request 01/26/22 01/26/22 01/26/22 06:36 06:36 06:36 WBC 11.20 H RBC 4.07 L Hgb 8.9 L Hct 30.4 L MCV 75 L MCH 21.9 L MCHC 29.3 L RDW 20.7 H Plt Count 474 H MPV 9.6 Immature Gran % 1.6 Neutrophils % 86.2 Lymphocytes % 4.6 Monocytes % 7.4 Eosinophils % 0.0 Basophils % 0.2 Nucleated RBC % 0.2 Absolute Neutrophils 9.65 H Absolute Lymphocytes 0.52 L Absolute Monocytes 0.83 H Absolute Eosinophils 0.00 Absolute Basophils 0.02 RBC Morphology See Below Poikilocytosis 2+ Anisocytosis 2+ Sodium Potassium Chloride Carbon Dioxide Anion Gap BUN Creatinine Est GFR (CKD-EPI 2020) Glucose Calcium Magnesium C-Reactive Protein Albumin 2.6 L Stl C.difficile Tox PCR A.phagocytophil DNA PCR B. divergens/MO-1 PCR Babesia duncani (PCR) Babesia microti DNA PCR Borrelia (PCR) E.chaffeensis DNA (PCR) E.ewingii/canis DNA PCR E. muris-like DNA (PCR) Add-On Test Request DONE
[2022-01-26] MEDS: guaiFENesin/CODEINE PHOSPHATE 10 ML CUP 5 ML PO (19:46)
[2022-01-26] MEDS: Amitriptyline 10 MG TAB PO (19:47)
[2022-01-26] MEDS: Colchicine 0.6 MG TAB PO (19:48)
[2022-01-26] MEDS: Loperamide 2 MG CAP PO (19:48)
[2022-01-26] MEDS: Atorvastatin 40 MG TAB 80 MG PO (19:48)
[2022-01-27] VITALS (11 sets, daily range): BP systolic 119–160; BP diastolic 71–91; PULSE 70–111; RESP 18–20; TEMP 36.4–36.9; O2SAT 89–96
[2022-01-27] MEDS: PIPERACILLIN/TAZO 3.375 GM in Normal Saline 50 ML IVPB ×3 (02:19→14:20)
[2022-01-27 06:26] LABS: Abs Immature Grans 0.22 10^3/uL (0.0-0.06); Absolute Basophil Count 0.02 10^3/uL (0.0-0.2); Absolute Eosinophil Count 0.08 10^3/uL (0.0-0.7); Absolute Lymphocyte Count 1.26 10^3/uL (1.2-3.4); Absolute Monocyte Count 1.27 10^3/uL (0.1-0.8); Absolute Neutrophil Count 8.19 10^3/uL (1.2-6.7); Basophils % 0.2; Eosinophils % 0.7; HCT 33.8 % (40.0-50.0); Lymphocytes % 11.4; MCH 21.7 pg (27.0-33.0); MCHC 29.6 % (32.0-36.0); MCV 73 fL (80-95); MPV 9.6 fL (8.0-11.0); Monocytes % 11.5; Neutrophils % 74.2; Nucleated RBC 0.2 % (0.0-0.3); Platelet Count 598 10^3/uL (130-400); RBC 4.61 10^6/uL (4.36-5.78); RDW 21.4 % (11.8-14.1); RDW-SD 55.5 fL; WBC 11.04 10^3/uL (4.4-10.8)
[2022-01-27 06:53] LABS: ALT 43 U/L (16-63); AST 38 U/L (15-37); Albumin 2.6 g/dL (3.4-5.0); Alkaline Phosphatase 158 U/L (46-116); Anion Gap 8.9 mmol/L (3-11); BUN 18 mg/dL (7-18); Bilirubin, Direct 0.1 mg/dL (0.0-0.2); Bilirubin, Total 0.5 mg/dL (0.2-1.0); CO2 30.1 mmol/L (21.0-32.0); CREATININE 0.9 mg/dL (0.70-1.30); Calcium 8.4 mg/dL (8.5-10.1); Chloride 102 mmol/L (98-107); Estimated GFR 89.07 (mL/min/1.73m2); Glucose 78 mg/dL (74-106); Magnesium 1.3 mg/dL (1.8-2.4); Potassium 3.3 mmol/L (3.5-5.1); Sodium 141 mmol/L (136-145); Total Protein 7.3 g/dL (6.4-8.2)
[2022-01-27] MEDS: Metoprolol CR 100 MG TABCR 200 MG PO (07:44)
[2022-01-27] MEDS: predniSONE 20 MG TAB 40 MG PO (07:45)
[2022-01-27] MEDS: amLODIPine 10 MG TAB PO (07:45)
[2022-01-27] MEDS: Furosemide 20 MG TAB 60 MG PO ×2 (07:45→16:45)
[2022-01-27] MEDS: Isosorbide Mononitrate 30 MG TABCR PO (07:46)
[2022-01-27] MEDS: Potassium Chloride 20 MEQ TABCR 40 MEQ PO ×3 (07:46→19:45)
[2022-01-27] MEDS: Magnesium Chloride 64 MG TABCR 128 MG PO ×2 (07:46→19:45)
[2022-01-27] MEDS: Aspirin E.C. 81 MG TABEC PO (07:46)
[2022-01-27] MEDS: Loperamide 2 MG CAP PO ×2 (07:47→19:45)
[2022-01-27] MEDS: Ketoconazole 2% CREAM 15 GM TUBE TP (07:47)
[2022-01-27] MEDS: guaiFENesin 600 MG TABCR PO ×2 (07:47→19:45)
[2022-01-27] MEDS: Apixaban 5 MG TAB PO ×2 (07:47→19:44)
[2022-01-27] MEDS: Esomeprazole 20 MG CAPCR PO ×2 (07:47→19:45)
[2022-01-27] MEDS: Folic Acid 1 MG TAB PO (07:47)
[2022-01-27] MEDS: Calcium Carbonate 1.5 GM TAB 3 GM PO ×2 (07:47→19:45)
[2022-01-27] MEDS: Allopurinol 300 MG TAB PO (07:47)
[2022-01-27] MEDS: Ipratropium/Albuterol 4 GM 120 PUFF INH IH ×4 (08:19→19:44)
[2022-01-27] MEDS: MAGNESIUM SULFATE 4 GM/100 ML BAG IVPB (09:03)
[2022-01-27] MEDS: Magnesium Oxide 400 MG TAB 800 MG PO ×2 (09:04→19:45)
[2022-01-27] MEDS: Spironolactone 25 MG TAB PO (09:04)
--- NOTE | 2022-01-27 10:05 | PDOC.CMPRO ---
- If Service Date Differs Date of service: 01/27/22 Time of Service: 10:05 Care Management Progress Note S/O: Shreyas was sitting in his chair watching TV when CM met with his. He is alert, oriented and able to engage in conversation. Shreyas does not have supplemental O2 at baseline, and weaning off O2 as tolerated (he is currently 91% on room air.) Shreyas is aware that Medicare, will pay for his VNA services. He will conciser having those services following discharge if he feels he needs them. Per Shreyas, he had VNA services before he came to the hospital, and is not sure they were that helpful. CM will continue to follow. A: 76 year old male admitted to [facility] on 01/22/22 for Severe hypocalcemia, hypomagnesemia P: Anticipate, Shreyas will return home once medically cleared. New [facility] RN/PT/OT/TICKET WRITER, are recommended. His will drive him home via private vehicle. He will follow up with his PCP and discharge plan of care. CM will continue to follow.
[2022-01-27] MEDS: Azithromycin 250 MG TAB 500 MG PO (12:25)
--- NOTE | 2022-01-27 13:06 | PT.INTREAT ---
Date of service: 01/27/22 Time of Service: 11:40 PT Notes Visit Reasons: Severe Hypocalcemia and Hypomagnesemia Inpatient Physical Therapy Treatment Note [facility] Date: 01/27/2022 PRECAUTIONS: Activity as tolerated SUBJECTIVE: Shreyas is pleasant and agreeable to participating in PT. He reports that he is feeling better today. He reports that he walked earlier with respiratory therapy. OBJECTIVE: PAIN: No c/o pain BED MOBILITY/TRANSFERS: Sit-stand: SBA Stand-sit: SBA GAIT: Assistive device: Quadcane Weight bearing: Full Assist: SBA Distance: 150' Deviation: Increased SOB, increased fatigue, without supplemental O2 THEREX/NEURO RE-ED: Declined as it was almost lunchtime STAIRS: Declined the need ASSESSMENT: Patient tolerated session well without complaint. He was able to ambulate with SBA and use of quadcane, which reportedly is his baseline. He ambulates without supplemental O2 today, demonstrating mild SOB with gait training. PLAN: Continue with balance retraining for improved safety with functional mobility and tasks, as well as general conditioning for improved activity tolerance. TREATMENT CODE/TIME: Session 1: 10 minutes; [id number] (11:40) Session 2: Patient declined
[2022-01-27] MEDS: Normal Saline Flush 10 ML SYR IVP ×2 (15:33→19:46)
--- NOTE | 2022-01-27 17:13 | PGE_ITS ---
Date of Service Date of service: 01/27/22 Time of Service: 17:13 Assessment and Plan Assessment and plan (1) Pneumonia: Status: Suspected Assessment and plan: I do not believe that he had pneumonia. He may have had bronchitis and he has been on Zosyn and given his lack of fevers, no purulent sputum, I think that he can be treated as an exacerbation of his COPD and given oral antibiotics and the Zosyn stopped. I have added azithromycin. I will watch him overnight while I try to improve on his afib rate by adjusting his metoprolol. (2) Acute on chronic diastolic (congestive) heart failure: Status: Acute Assessment and plan: It sounds from his reported exams on admission that he was in volume overload probably precipitated by his afib and his moderate MR. As I have explained under the subjective part of my note his echo parameters other than his mild LAE do not meet criteria for diastolic HF. However, I do not know what his LV and RV function were like after his RI and prior to him going on lasix. His home dose of lasix was 40 mg daily which has been increased to 60 mg bid. I added spironolactone 25 mg daily to treat his CHF prior to my review of his echo report and also to prevnt hypokalemia from his lasix. (3) Diarrhea: Status: Acute Assessment and plan: C. diff negative. prn loperamide written. could be due to magnesium supplementation. (4) Hypomagnesemia: Status: Acute Assessment and plan: Replete with PO and IV. Continue esomeprazole magnesium instead of omeprazole. (5) Hypocalcemia: Status: Acute Assessment and plan: Replete PO. Suspect this is due to hypomagnesemia. monitor (6) Hypokalemia: Status: Resolved Assessment and plan: still low at 3.3, will give oral supplementation and begin on spironolactone and recheck levels. (7) General weakness: Status: Acute Assessment and plan: In setting of electrolyte abnormalities, recent cessation of steroids (not used chronically). COmponent of adrenal insufficiency on presentation is possible. Also concern for PMR given his very high ESR and CRP. he will need slow taper of steroids PT consulted. Improving. Replete lytes. Tick panel negative. (8) PMR (polymyalgia rheumatica): Status: Suspected Assessment and plan: suspected d/t his high ESR and his hx of recurrent generalized muscle pains and severe incapacitating weakness which has been recurrent. While his acute generalized weakness this admission can be explained d/t his hypocalcemia and hypomagnesemia, he says that he has been hospitalized 3 other times for similar complaints. I do not have his [facility] records to verify his statement nor to check to see if he had similar lab abnormalities. (9) Chest pain: Status: Resolved Assessment and plan: Likely due to GERD (by description and response to mylanta). Continue PPI. Has prn mylanta. (10) DVT prophylaxis: Status: Acute Assessment and plan: On eliquis (for h/o Afib) (11) Discharge planning issues: Status: Acute Assessment and plan: DNI, but not DNR per my conversation with the patient as witnessed by . The patient wants to make sure that, whatever services are ordered as outpatient, the [place] covers it. Anticipate discharge home tomorrow Subjective Subjective Interval history since last seen: Mr. Jorgensen 76-year-old male with past medical history of coronary artery disease status post RI, not oxygen dependent COPD, atrial fibrillation on apixaban, previous CVA, hypertension, gout, chronic pain who presented to the emergency department complaints of 4 days of malaise difficulty getting out of bed difficulty ambulating. Patient states that is by aches all over. He was admitted with a nonproductive cough and some wheezing and heartburn-like chest pain. Upon evaluation in the emergency department he was found to be severely hypomagnesemic and hypocalcemic with magnesium of 0.[address] of his head was negative. PCR for COVID was negative. Chest x-ray was negative. Serial troponin I levels have been negative. He was empirically treated for p neumonia with Zosyn was placed on bronchodilators and given a steroid taper. He was also diagnosed as having acute on chronic diastolic heart failure and was initially treated with IV Lasix and subsequently transferred over to oral Lasix which was increased to 60 mg twice daily. His BNP was elevated at 2050. His CXR however did not show effusions or pulmonary edema. His generalized weakness is improved with correction of his hypomagnesemia and hypokalemia. He has never had a fever throughout his hospital course. WBCs have been unchanged throughout his hospital course at 11,000. CRP was greater than 25 on admission and is since come down to 4.4. ESR was greater than 120 on admission. Procalcitonin on admission was 1.3. He states that his dyspnea is improved, although he still gets paroxysms of coughing which I witnessed this morning although this seems improved this afternoon. He has no sputum production. He states that his legs were really edematous on admission but that his has improved greatly. He has lost 4.4 kg since admission, wt now down to 92.6 kg from 97. His echo was done on 01/24 and showed normal LV systolic function and normal LV size and normal RV size and function. LVEF is 57% w/ no regional wall motion abormalities. he does have moderate mitral regurgitation. His diastolic parameters, i.e. his e prime lateral MV annulus is 13.9 cm/s (normal is over 10), and e prime medial MV annulus is 7.7 (normal is >= 7). His TR peak velocity is 2.68 m/s which is normal (abnormal is >2.8), avg E/e prime MV annulus is 11.3 (abnormal is >14), however his LA is mildly enlarged and his CATRACHO is increased at an avg of 39.1 mL/m2 (normal is less than 34). Based on this his echo parameters do not meet criteria for diastolic dysfunction. nevetheless he did present in a volume overloaded state and has diuresed well. I think that his rapid afib contributed to his acute CHF d/t his underlying moderate MR. I told Shreyas that if he continues to improve he may be able to be discharged home tomorrow. He will need to remain on potassium and magnesium supplementation. I think a slow steroid taper over several weeks may be needed and I am concerned given his complaints of diffuse pain of his limbs along w/ his weakness that he may have PMR especially given his high ESR and CRP which I do not believe were d/t any infection. Exam Narrative Exam Narrative: Shreyas was seen sitting up in his chair not wearing his oxygen he is not short of breath able to talk in complete paragraphs. This morning he had some paroxysms of coughing but that seems to have settled this afternoon. Lungs are clear to auscultation with prolonged expiratory phase no rhonchi or wheezing Heart irregularly irregular slightly tachycardic. Telemetry reviews shows heart rate going up into the 140s with activity but at rest he is in the low 100s Abdomen is obese soft and nontender nondistended Lower extremities with no edema Objective Last Vital Signs Temp 36.5 C 01/27/22 15:27 Pulse 105 H 01/27/22 15:27 Resp 18 01/27/22 15:27 BP 143/87 H 01/27/22 15:27 Pulse Ox 93 01/27/22 15:27 Laboratory Results - last 24 hr 01/22/22 01/27/22 01/27/22 15:40 05:35 06:00 WBC 11.04 H RBC 4.61 Hgb 10.0 L Hct 33.8 L MCV 73 L MCH 21.7 L MCHC 29.6 L RDW 21.4 H Plt Count 598 H MPV 9.6 Immature Gran % 2.0 Neutrophils % 74.2 Lymphocytes % 11.4 Monocytes % 11.5 Eosinophils % 0.7 Basophils % 0.2 Nucleated RBC % 0.2 Absolute Neutrophils 8.19 H Absolute Lymphocytes 1.26 Absolute Monocytes 1.27 H Absolute Eosinophils 0.08 Absolute Basophils 0.02 Sodium 141 Potassium 3.3 L Chloride 102 Carbon Dioxide 30.1 Anion Gap 8.9 BUN 18 Creatinine 0.9 Est GFR (CKD-EPI 2020) 89.07 Glucose 78 Calcium 8.4 L Magnesium 1.3 L Total Bilirubin 0.5 Conjugated Bilirubin 0.1 AST 38 H ALT 43 Alkaline Phosphatase 158 H Total Protein 7.3 Albumin 2.6 L M. pneumoniae Source Cancelled M. pneumoniae (PCR) Cancelled 01/27/22 16:16 WBC RBC Hgb Hct MCV MCH MCHC RDW Plt Count MPV Immature Gran % Neutrophils % Lymphocytes % Monocytes % Eosinophils % Basophils % Nucleated RBC % Absolute Neutrophils Absolute Lymphocytes Absolute Monocytes Absolute Eosinophils Absolute Basophils Sodium Potassium 4.0 Chloride Carbon Dioxide Anion Gap BUN Creatinine Est GFR (CKD-EPI 2020) Glucose Calcium Magnesium Total Bilirubin Conjugated Bilirubin AST ALT Alkaline Phosphatase Total Protein Albumin M. pneumoniae Source M. pneumoniae (PCR)
[2022-01-27] MEDS: guaiFENesin/CODEINE PHOSPHATE 10 ML CUP 5 ML PO (19:44)
[2022-01-27] MEDS: Metoprolol CR 100 MG TABCR PO (19:45)
[2022-01-27] MEDS: Colchicine 0.6 MG TAB PO (19:45)
[2022-01-27] MEDS: Amitriptyline 10 MG TAB PO (19:45)
[2022-01-27] MEDS: Atorvastatin 40 MG TAB 80 MG PO (19:46)
[2022-01-28] VITALS (7 sets, daily range): BP systolic 113–144; BP diastolic 57–83; PULSE 71–107; RESP 18–22; TEMP 36.5–36.7; O2SAT 91–94
[2022-01-28 06:55] LABS: HCT 36.4 % (40.0-50.0); HGB 10.5 g/dL (13.5-17.5); MCH 21.6 pg (27.0-33.0); MCHC 28.8 % (32.0-36.0); MCV 75 fL (80-95); MPV 9.7 fL (8.0-11.0); Nucleated RBC 0.2 % (0.0-0.3); RBC 4.85 10^6/uL (4.36-5.78); RDW 21.2 % (11.8-14.1); RDW-SD 56.1 fL; WBC 13.68 10^3/uL (4.4-10.8)
[2022-01-28 07:39] LABS: Diff Comment Manual Differential
[2022-01-28 07:40] LABS: Absolute Eosinophil Count 0.14 10^3/uL (0.0-0.7); Absolute Lymphocyte Count 1.09 10^3/uL (1.2-3.4); Absolute Monocyte Count 1.64 10^3/uL (0.1-0.8); Absolute Neutrophil Count 10.67 10^3/uL (1.2-6.7); Anisocytosis 2+; Hypochromasia 2+; Metamyelocytes % 1; Microcytosis 1+; Platelet Count 708 10^3/uL (130-400)
[2022-01-28 07:41] LABS: Poikilocytes 2+; Polychromasia Present
[2022-01-28 07:51] LABS: Procalcitonin 0.2 ng/mL
[2022-01-28] MEDS: Ipratropium/Albuterol 4 GM 120 PUFF INH IH ×4 (08:00→18:27)
[2022-01-28 08:03] LABS: ALT 56 U/L (16-63); AST 43 U/L (15-37); Albumin 2.8 g/dL (3.4-5.0); Alkaline Phosphatase 177 U/L (46-116); Anion Gap 8.7 mmol/L (3-11); BUN 20 mg/dL (7-18); Bilirubin, Total 0.4 mg/dL (0.2-1.0); CO2 29.3 mmol/L (21.0-32.0); Calcium 8.6 mg/dL (8.5-10.1); Chloride 102 mmol/L (98-107); Estimated GFR 78.49 (mL/min/1.73m2); Glucose 73 mg/dL (74-106); Potassium 3.6 mmol/L (3.5-5.1); Sodium 140 mmol/L (136-145); Total Protein 7.6 g/dL (6.4-8.2)
[2022-01-28 08:04] LABS: Anion Gap 8.5 mmol/L (3-11); BUN 21 mg/dL (7-18); C-Reactive Protein 1.51 mg/dL (0.0-0.3); CO2 29.5 mmol/L (21.0-32.0); Calcium 8.4 mg/dL (8.5-10.1); Chloride 103 mmol/L (98-107); Estimated GFR 78.49 (mL/min/1.73m2); Glucose 73 mg/dL (74-106); Magnesium 1.7 mg/dL (1.8-2.4); NT-proBNP 980 pg/mL (<300); Potassium 4.2 mmol/L (3.5-5.1); Sodium 141 mmol/L (136-145)
[2022-01-28] MEDS: Furosemide 20 MG TAB 60 MG PO ×2 (09:11→15:57)
[2022-01-28] MEDS: Apixaban 5 MG TAB PO ×2 (09:11→18:25)
[2022-01-28] MEDS: predniSONE 20 MG TAB 60 MG PO (09:12)
[2022-01-28] MEDS: Spironolactone 25 MG TAB PO (09:12)
[2022-01-28] MEDS: Aspirin E.C. 81 MG TABEC PO (09:13)
[2022-01-28] MEDS: amLODIPine 10 MG TAB PO (09:13)
[2022-01-28] MEDS: Isosorbide Mononitrate 30 MG TABCR PO (09:13)
[2022-01-28] MEDS: Esomeprazole 20 MG CAPCR PO ×2 (09:13→18:23)
[2022-01-28] MEDS: Folic Acid 1 MG TAB PO (09:13)
[2022-01-28] MEDS: Azithromycin 250 MG TAB PO (09:14)
[2022-01-28] MEDS: guaiFENesin 600 MG TABCR PO ×2 (09:14→18:25)
[2022-01-28] MEDS: Allopurinol 300 MG TAB PO (09:14)
[2022-01-28] MEDS: Magnesium Chloride 64 MG TABCR 128 MG PO ×2 (09:15→18:25)
[2022-01-28] MEDS: Calcium Carbonate 1.5 GM TAB 3 GM PO ×2 (09:15→18:23)
[2022-01-28] MEDS: Magnesium Oxide 400 MG TAB 800 MG PO ×2 (09:15→18:25)
[2022-01-28] MEDS: Amoxicillin 875/Clav. 125 TAB PO ×2 (09:16→18:24)
[2022-01-28] MEDS: Potassium Chloride 20 MEQ TABCR 40 MEQ PO ×3 (09:16→18:24)
[2022-01-28] MEDS: Metoprolol CR 100 MG TABCR 200 MG PO (09:23)
[2022-01-28] MEDS: Ketoconazole 2% CREAM 15 GM TUBE TP (09:25)
--- NOTE | 2022-01-28 10:39 | PDOC.CMPRO ---
- If Service Date Differs Date of service: 01/28/22 Time of Service: 10:39 Care Management Progress Note S/O: Shreyas was sitting up in his chair when CM met with him. He is alert, oriented and easy to engage in conversation. He does want to resume [facility] PT and homemaker services when ready to discharge home. A: 76 year old male admitted to [facility] on 01/22/22 for Severe hypocalcemia, hypomagnesemia P: Anticipate, Shreyas will return home once medically cleared. Resume [facility] PT/ homemaker, add RN/OT/VICE PRESIDENT NETWORK (if indicated). His will drive him home via private vehicle. He will follow up with his PCP and discharge plan of care. CM will continue to follow.
--- NOTE | 2022-01-28 13:33 | PTTR_ITS ---
Date of service: 01/28/22 Time of Service: 09:30 PT Notes Visit Reasons: Severe Hypocalcemia and Hypomagnesemia Inpatient Physical Therapy Treatment Note [facility] Date: 01/28/2022 PRECAUTIONS: Activity as tolerated SUBJECTIVE: Shreyas is pleasant and agreeable to participating in PT. He reports that he is feeling better today and hopes to discharge home today. OBJECTIVE: PAIN: No c/o pain BED MOBILITY/TRANSFERS: Sit-stand: SBA Stand-sit: SBA GAIT: Assistive device: Quadcane Weight bearing: Full Assist: SBA Distance: 150' x2 Deviation: Mild SOB, seated rest STAIRS: Up/down 3x4' and 2x6 using B rails and a step-to pattern with supervision ASSESSMENT: Patient tolerated session with minimal complaint of increased SOB w ith gait training. He demonstrates improved mobility, tolerating increased gait distance with quadcane support and SBA. PLAN: Patient to discharge to home later today, per provider. Recommend follow up with PT for continued balance retraining and general conditioning. TREATMENT CODE/TIME: 21 minutes; 94014 (09:30)
[2022-01-28] MEDS: traMADol 50 MG TAB PO (16:13)
--- NOTE | 2022-01-28 16:43 | DSE_ITS ---
Date of service: 01/28/22 Time of Service: 16:43 DS: Diagnosis Discharge Diagnosis (1) Pneumonia: Status: Suspected Asessment and Plan: Patient did not present with any fever but presented with symptoms of cough with increased sputum production. Blood cultures came back no growth after multiple samples sputum cultures grew normal oral steve. Chest x-ray did not support a diagnosis of pneumonia nevertheless the patient had evidence of an acute infection as evidenced by a high procalcitonin level of 11 and a CRP greater than 25 and a sed rate greater than 100. Clinically his oxygen nation improved with treatment of his acute bronchitis with IV and then oral steroids. He completed 6-day course of Zosyn and then was placed on oral Augmentin for 4 more days. He was also discharged home on azithromycin for 4 more days. (2) Acute on chronic diastolic (congestive) heart failure: Status: Acute Asessment and Plan: Echocardiogram parameters did not support a diagnosis of diastolic heart failure however given his atrial fibrillation and his moderate mitral regurgitation he very well may have gone into acute congestive failure secondary to his rapid heart rate and valvular heart disease. Clinically at present with bilateral leg edema which improved after IV diuresis. He was discharged home on increased dose of Lasix 40 mg twice a day and continued use of Spiriva lactone 20 mg daily. His atrial fibrillation with rate was trolled with prolonged he was converted over to Toprol-XL 200 mg daily. (3) Diarrhea: Status: Acute Asessment and Plan: C. difficile came back negative. Diarrhea is felt to be secondary to magnesium supplementation (4) Hypomagnesemia: Status: Acute Asessment and Plan: Repleted. Please check repeat magnesium in 1 week (5) Hypocalcemia: Status: Acute Asessment and Plan: Calcium corrected please recheck ionized calcium next week (6) Hypokalemia: Status: Resolved Asessment and Plan: Hypokalemia corrected with oral supplementation and spironolactone. Please recheck BMP next week (7) General weakness: Status: Acute (8) PMR (polymyalgia rheumatica): Status: Suspected Asessment and Plan: Not a clear-cut case of PMR but patient reports has had repeated bouts which she was diagnosed with gout but what he describes to me is repeated bouts of muscle pains and weakness. I put on a tapering dose of prednisone has been on steroids on and off throughout the summer. I will put him on a slower taper starting at 40 mg daily for 1 week then decrease by 10 mg/day every 7 days. Once he is off steroids if he has recurrent generalized muscle weakness that he should have repeat studies including sed rate, CRP, KINGS, antidouble-stranded DNA (9) Chest pain: Status: Resolved Asessment and Plan: Chest pain was felt to be due to GERD treated with PPI. PPI may be contributing to his chronic hypomagnesemia. Please monitor magnesium levels while on omeprazole (10) Discharge planning issues: Status: Acute Asessment and Plan: Patient was discharged home with recommendations for home health services including home PT. During his hospital stay physical therapy evaluate and treat him. He was ambulating under his own power with use of a cane with no loss of balance. Nevertheless physical therapy felt he would benefit from home physical therapy services. Discharge Plan Disposition Patient Disposition: HOME W/HOME HEALTH SERVICE Condition: Improving Discharge Details Reason For Visit: Severe Hypocalcemia and Hypomagnesemia Admit Date/Time: 01/22/22 11:07 Admit Provider: Cyndi Genao Attending Provider: Cyndi Genao Primary Care Provider: [facility] Hospital Course Hospital Course: 76-year-old male with past medical history of CAD, status post AL (no stents), not oxygen dependent COPD, chronic atrial fibrillation on apixaban, CVA x2, hypertension, gout, chronic pain syndrome who presented to [facility] with 4 days of malaise difficulty getting out of bed difficulty ambulating. Says this is the fourth time he is been admitted to the hospital this year with similar complaints of weakness and inability to ambulate. On the morning admission he also noted up productive cough. Also had chest pain with heartburn-like symptoms lasted for about 2 minutes. Evaluation in ER showed that he was severely hypomagnesemic and hypocalcemic (Mg level 0.4) and calcium 5.8. Nasal swab for COVID PCR was negative. CT of the head was negative chest rate x-ray showed no infiltrates or effusions. He was admitted for treatment of his electrolyte abnormalities and was found to be in acute CHF with bilateral leg edema. He was empirically treated for pneumonia due to his reported productive cough and elevated procalcitonin level of 11.6 patient was given calcium and magnesium supplementation. He was initially admitted to the intensive care unit because of the severity of his electrolyte abnormalities. His generalized weakness was felt to be secondary to his electrolyte abnormalities along with recent cessation of steroids. He was put on stress dose steroids. Tick panel was ordered and came back negative. He was treated empirically with Zosyn and vancomycin. Was kept on Zosyn from 01/22 through 01/27/2022 after which he was placed on Augmentin after blood cultures came back no growth. MRSA screen was obtained and came back negative. After that his vancomycin was discontinued. Blood cultures came back no growth. Sputum culture was obtained from 01/22/2022 and 01/26/2022. Initial sputum culture from 01/22/2022 gram stain showed few white cells few epithelial cells rare gram-positive cocci rare yeast. Final culture came back moderate growth of normal steve. Sputum culture from 01/26/2022 also came back normal steve rare growth. Gram stain showed rare white cells rare epithelial cells and no bacteria. For CHF he was treated with IV Lasix spironolactone given potassium supplementation and diagnostic imaging included an echocardiogram which showed normal left ventricular size and thickness with an EF of 55 to 60% with normal wall motion. He had normal right ventricular size and function. Left atrium is mildly dilated right atrium is normal in size. Aortic valve is trileaflet with sclerosis and trace to mild aortic insufficiency. There is moderate mitral regurgitation with mild thickened mitral leaflets. He had normal tricuspid valve with mild regurgitation. Estimated RVSP 32 mm. He has a mildly dilated ascending aorta measuring 3.59 cm. Although he carries it diagnosis of heart failure with preserved ejection fraction of interest is his LV diastolic par ameters did not support a diagnosis of diastolic heart failure. Specifically his medial mitral valve e' velocity was 7.7 cm/s and his lateral mitral valve e' velocity was 13.9 cm/s. His mitral valve E:e' medial was 14.5 and his mitral valve E:e' lateral was 8. These were all within normal limits. Furthermore his tricuspid regurgitant maximal velocity was normal at 2.68 m/s. Nevertheless he presented with a elevated proBNP of 2050 and at discharge his proBNP was down to 980 pg/mL. His admission weight was 97.0 kg and at discharge his weight was down to 92.3 kg. Patient's IV Lasix was converted to oral Lasix. And at discharge his home dose was increased from 40 mg daily to 40 mg twice a day. He will continue spironolactone 25 mg daily. He will be discharged home on 4 more days of Augmentin and he will be placed on a tapering dose of prednisone at 40 mg daily for 7 days and then decrease by 10 mg/day each week thereafter to is down to baseline at 10 mg/day. Given the patient's recurrent complaints of myalgias and weakness he should be evaluated for possible PMR. Follow-up labs have been ordered including repeat calcium, magnesium and BMP next week. At the time of discharge his procalcitonin had declined down to 0.2 and CRP was down to 1.5 from a peak of greater than 25. Home Meds and New Rx's Prescriptions: New azithromycin 250 mg Tablet 250 mg PO DAILY 4 Days Qty: 4 0RF metoprolol succinate 100 mg Tablet Extended Release 24 Hr 100 mg PO QPM Qty: 30 0RF spironolactone 25 mg Tablet 25 mg PO DAILY Qty: 30 0RF amoxicillin-pot clavulanate 875-125 mg Tablet 1 tab PO BID 4 Days Qty: 8 0RF Mag 64 64 mg Tablet,Delayed Release (Dr/Ec) 128 mg PO BID Qty: 60 0RF nitroglycerin 0.4 mg Tablet, Sublingual 0.4 mg sublingual Q5 MIN PRN X3 PRNQty: 20 0RF prednisone 20 mg tablet See Rx Instructions .ROUTE .COMPLEX Qty: 35 0RF Rx Instructions: 40 mg orally x 7d, 30 mg/d x 7d, 20 mg/d x 7d, then 10 mg daily Continued tramadol 50 mg Tablet 50 mg PO Q6H PRN PRN amitriptyline 10 mg tablet 1 tab PO HS Label Comments: TAKE ONE TABLET BY MOUTH EVERY DAY AT BEDTIME Combivent Respimat 20-100 mcg/actuation Mist 1 puff INHALATION QID colchicine 0.6 mg Capsule 0.6 mg PO HS atorvastatin 80 mg Tablet 80 mg PO HS acetaminophen 325 mg Tablet 650 mg PO Q4H PRN PRN metoprolol succinate 200 mg Tablet Extended Release 24 Hr 200 mg PO DAILY isosorbide mononitrate 30 mg Tablet Extended Release 24 Hr 30 mg PO DAILY aspirin 81 mg Tablet,Delayed Release (Dr/Ec) 81 mg PO DAILY amlodipine 10 mg Tablet 10 mg PO DAILY folic acid 1 mg Tablet 1 mg PO DAILY allopurinol 300 mg Tablet 300 mg PO DAILY omeprazole 20 mg Tablet,Delayed Release (Dr/Ec) 20 mg PO BID apixaban 5 mg Tablet 5 mg PO BID Changed furosemide 40 mg Tablet 40 mg PO BID Qty: 0 0RF potassium chloride 20 mEq Tablet Extended Release 20 meq PO BID Qty: 0 0RF Discharge Instructions Instructions: Heart Failure (DC), Acute Bronchitis (GEN), Polymyalgia Rheumatica (DC) Additional Instructions: Get follow up labs next week to reassess your electrolytes and kidney function Stand Alone Forms: Nursing Discharge Form [facility] - (Please call Monday to make a follow up appointment. ) Activity:: Activity as Tolerated Equipment/Supplies:: No Equipment Needed Diet:: Low Sodium Discharge Orders Discharge Orders: Discharge Order (Routine); Ordered 01/28/22 Ordered By: Eugene Valdes Other Ambulatory Orders: Basic Metabolic Panel (Routine) Timeframe: 1 Week Facility: [facility] - Location: Laboratory Ordered By: Eugene Valdes Ionized Calcium (Routine) Timeframe: 1 Week Facility: [facility] - Location: Laboratory Nonpatient Ordered By: Eugene Valdes Magnesium (Routine) Timeframe: 1 Week Facility: [facility] - Location: Laboratory Outpatient - [facility] Ordered By: Eugene Valdes DS: Summary Time Spent with Patient providing and/or coordinating discharge services: Greater than 30 minutes Specific discharge activities: Interview/exam of patient; review of discharge instructions, completion of prescriptions/discharge instructions; discussion w/ nursing and CM; documentation of hospital visit Status at Discharge Functional status at discharge: uses cane/walker Overall status at discharge: patient is progressing back to baseline Mental Status: mental status grossly normal Speech and Movement: speech and movement normal Mood: congruent mood Affect: normal affect Exam Narrative Exam Narrative: General sitting up in his chair not requiring any oxygen not short of breath denies any chest pain nausea or vomiting. No abdominal discomfort. Lungs are clear to auscultation. Hearts irregularly irregular but at a controlled rate Abdomen is soft obese nondistended nontender Lower extremities without peripheral cyanosis or edema Psych Mental Status: mental status grossly normal Speech and Movement: speech and movement normal Mood: congruent mood Affect: normal affect DS: Data Vitals/I&O Vitals and I&O: Vital Signs Temperature 36.7 C 01/28/22 11:17 Temperature Source Tympanic 01/28/22 11:17 Pulse 107 H 01/28/22 15:00 Pulse Rhythm Irregular 01/28/22 09:10 Pulse 81 01/23/22 19:02 Respiratory Rate 22 01/28/22 11:17 Respiratory Effort 01/28/22 09:10 Respiratory Depth Normal 01/28/22 09:10 Respiratory Pattern Normal 01/28/22 09:10 Blood Pressure 113/70 01/28/22 11:17 Blood Pressure Mean 75 01/23/22 19:02 Blood Pressure Position Supine 01/23/22 08:00 Pulse Oximetry 92 01/28/22 11:17 Oxygen Delivery Method Room Air 01/28/22 11:17 Oxygen Flow Rate 0 01/28/22 11:17 Pain Level 5 01/28/22 16:13 Comment 01/27/22 15:00 Intake & Output 01/27/22 01/28/22 01/28/22 23:59 11:59 23:59 Intake Total 551.5 / 1331.5 400 / 800 400 / 800 Balance 551.5 / 529.5 400 / 800 400 / 800 Weight 92.3 kg Intake: IV 71.5 / 171.5 Oral 480 / 1160 400 / 800 400 / 800 Other: Comment Per pt. report, void x1 in the toilet. Pt. voids independently; RN unable to visualize urine. pT uses bathroom independently. Stool Occult Blood Negative Stool Size Small Stool Characteristics Soft Voiding Methods Toilet Toilet Data Completed and Pending Labs on day of discharge: Labs from last 24 hours 01/28/22 01/28/22 01/28/22 05:56 05:56 05:56 WBC 13.68 H RBC 4.85 Hgb 10.5 L Hct 36.4 L MCV 75 L MCH 21.6 L MCHC 28.8 L RDW 21.2 H Plt Count 708 H MPV 9.7 Immature Gran % See Differential Neutrophils % 78.0 Lymphocytes % 8.0 Monocytes % 12.0 Eosinophils % 1.0 Basophils % 0.0 Metamyelocytes % 1 Nucleated RBC % 0.2 Absolute Neutrophils 10.67 H Absolute Lymphocytes 1.09 L Absolute Monocytes 1.64 H Absolute Eosinophils 0.14 Absolute Basophils 0.00 RBC Morphology See Below Polychromasia Present Hypochromasia 2+ Poikilocytosis 2+ Anisocytosis 2+ Microcytosis 1+ Sodium 140 Potassium 3.6 Chloride 102 Carbon Dioxide 29.3 Anion Gap 8.7 BUN 20 H Creatinine 1.0 Est GFR (CKD-EPI 2020) 78.49 Glucose 73 L Calcium 8.6 Magnesium Total Bilirubin 0.4 AST 43 H ALT 56 Alkaline Phosphatase 177 H C-Reactive Protein NT-Pro-B Natriuret Pep Total Protein 7.6 Albumin 2.8 L Procalcitonin 0.2 01/28/22 05:56 WBC RBC Hgb Hct MCV MCH MCHC RDW Plt Count MPV Immature Gran % Neutrophils % Lymphocytes % Monocytes % Eosinophils % Basophils % Metamyelocytes % Nucleated RBC % Absolute Neutrophils Absolute Lymphocytes Absolute Monocytes Absolute Eosinophils Absolute Basophils RBC Morphology Polychromasia Hypochromasia Poikilocytosis Anisocytosis Microcytosis Sodium 141 Potassium 4.2 Chloride 103 Carbon Dioxide 29.5 Anion Gap 8.5 BUN 21 H Creatinine 1.0 Est GFR (CKD-EPI 2020) 78.49 Glucose 73 L Calcium 8.4 L Magnesium 1.7 L Total Bilirubin AST ALT Alkaline Phosphatase C-Reactive Protein 1.51 H NT-Pro-B Natriuret Pep 980 H Total Protein Albumin Procalcitonin 01/28/22 11:32 Sputum - Expectorated Sputum Culture - Pending Preliminary micro results at discharge 01/28/22 11:32 Sputum Culture - Pending Sputum - Expectorated 01/26/22 15:28 Sputum Culture - Preliminary Sputum Normal Steve PFSH All Active Problems Medication monitoring encounter (Acute) Diarrhea (Acute) Acute on chronic diastolic (congestive) heart failure (Acute) Acute CHF (Acute) Discharge planning issues (Acute) DVT prophylaxis (Acute) General weakness (Acute) Hypocalcemia (Acute) Hypomagnesemia (Acute) Encounter for blood test (Acute) Medical History Arthritis Atrial fibrillation CAD (coronary artery disease) COPD (chronic obstructive pulmonary disease) CVA (cerebral vascular accident) Gout Hypertension Myocardial infarction Obesity (BMI 30-39.9) Right wrist fracture Surgical History S/P cardiac cath [place] 2017 - no stents, per patient S/P left knee surgery Family History Mother Heart disease Diabetes Hypertension Paternal Grandmother Breast cancer Paternal Aunt Breast cancer Social History Smoking/Tobacco Use Status: Former Tobacco Use tobacco type: cigarettes Quit Date: 04/24/91 Pack-years: 90 Tobacco: How many years used: 45 Smoking risk assessment performed?: Yes Alcohol Intake: former Drug use: Never Substance use type: does not use Do you feel safe at home: Yes Do you feel safe in your relationship?: Yes
[2022-01-28] MEDS: Metoprolol CR 100 MG TABCR PO (18:24)
--- NOTE | 2022-01-31 11:33 | INDS_ITS ---
Date of service: 01/28/22 Time of Service: 11:33 PT Notes Visit Reasons: Severe Hypocalcemia and Hypomagnesemia Inpatient Physical Therapy Discharge Summary Dates: January 28, 2022 Dates of Service: 01/23/22-01/28/22 This document serves as a summary of care. No PT services were provided on this date Patient Profile/Admitting Diagnosis: Mr Jorgensen is a 76 year old male with PMHx of CAD s/p [place] (no stents), non-oxygen dependent COPD, Afib on apixaban, CVA x 2, hypertension, gout, chronic pain, who presented to [facility] ED c/o 4 days of malaise and difficulty getting out of bed. Social History/Home Situation: Shreyas lives in a 2 story home with his . He reports prior to admission he utilized a cane sometimes 2 canes to get around his home. Does have a walker however his home was built in the 1800's and does not allow for easy access due to narrow doorways to get around. He states that his grandson just installed a hand railing to enter his home in which he has 2 steps. He reports once in his home he does not have to go to the second level. Shreyas notes that he discontinued his home health services just recently for thought he was doing better. Current Functional Limitations: Generalized weakness with recent flar up with gout. Equipment Owned/DME: walker, wheelchair, canes, shower chair SUBJECTIVE: Not obtained OBJECTIVE: ROM: As demonstrated on 01/23/22 Right Upper Extremity: Demonstrates WFL AROM of R shoulder, elbow. Unable to assess forearm and wrist due to cast Left Upper Extremity: Demonstrates WFL AROM of L UE. Right Lower Extremity: Demonstrates WFL A R LE ROM Left Lower Extremity:Demonstrates WFL A R LE ROM Strength:As demonstrated on 01/23/22 Right Upper Extremity: Shoulder flexion 4/5, Bicep 4/5, Demonstrates good functional grasp Left Upper Extremity: Demonstrates WFL strength L UE. Right Lower Extremity: Hip flexion 3+/5, knee flexion 4/5, knee extension 4/5, DF 4/5 Left Lower Extremity: Hip flexion 3+/5, knee flexion 4/5, knee extension 4/5, DF 4/5 BED MOBILITY/TRANSFERS: As demonstrated on 01/28/22 Sit-stand: SBA Stand-sit: SBA GAIT:As demonstrated on 01/28/22 Assistive device: Quad cane Weight bearing: Full Assist: SBA Distance: 150' x2 Deviation: Mild SOB, seated rest STAIRS: Up/down 3x4' and 2x6 using B rails and a step-to pattern with supervision(As demonstrated on 01/28/22) ASSESSMENT: Mr Jorgensen is a 76 year old male with PMHx of CAD s/p [place] (no stents), non-oxygen dependent COPD, Afib on apixaban, CVA x 2, hypertension, gout, chronic pain, who presented to [facility] ED c/o 4 days of malaise and difficulty getting out of bed. Shreyas demonstrated improved mobility and was discharged per medical clearance. GOALS Goals X1 week 1. Supine-Sit Independent (Not Met) 2. Sit-Supine Independent (Not Met) 3. Sit-Stand Independent (Not Met) 4. Stand-Sit Independent (Not Met) 5. Bed-Chair Independent (Not Met) 6. Chair-Bed Independent (Not Met) 7. Gait 100 ft or greater with use of least restrictive assistive device as needed.(MET) 8. Stairs up/down 2-3 steps with use of railing(MET) 9. Improved static and dynamic standing balance to good (Not Met) Plan: Discharge from PT services. DISCHARGE PLAN/RECOMMENDATIONS: Home with Home Health Services- PT/OT to promote mobility and safety in home. Ida Stahl, MPT [facility]
== END 2022-01-28 18:48 | disposition home health service (06) | DRG 193 ==
LOC: ER 11:18 → ICU 12:20 → MS 01-23 21:33
PROVIDERS: Internal Medicine; Admitting Provider Internal Medicine; Emergency Provider Emergency Medicine; Visit Provider Internal Medicine
DX: J18.9 Pneumonia, unspecified organism (principal); I50.33 Acute on chronic diastolic (congestive) heart failure; J44.0 Chronic obstructive pulmonary disease with (acute) lower respiratory infection; I11.0 Hypertensive heart disease with heart failure; E83.42 Hypomagnesemia; E83.51 Hypocalcemia; R53.1 Weakness; I25.10 Atherosclerotic heart disease of native coronary artery without angina pectoris; I25.2 Old myocardial infarction; Z79.01 Long term (current) use of anticoagulants; I48.91 Unspecified atrial fibrillation; M10.9 Gout, unspecified; G89.29 Other chronic pain; Z86.73 Personal history of transient ischemic attack (TIA), and cerebral infarction without residual deficits; E66.9 Obesity, unspecified; Z68.37 Body mass index [BMI] 37.0-37.9, adult; Z87.891 Personal history of nicotine dependence; K21.9 Gastro-esophageal reflux disease without esophagitis; I34.0 Nonrheumatic mitral (valve) insufficiency; R19.7 Diarrhea, unspecified; M35.3 Polymyalgia rheumatica
CPT/HCPCS: 36415; 80048; 80053; 80076; 82805; 83690; 84145; 85652; 87040; 87077; 87081; 87449; 87493; 87635; 87637; 87798; 93005; 93306; 94618; 94640; 96365; 96367; 96375; 97110; 97162; 97530; 99285; 70450; 71046; 81003; 81015; 82040; 82310; 82607; 82728; 82746; 83540; 83550; 83605; 83735; 83880; 83970; 84100; 84132; 84484; 85025; 85610; 85730; 86140; 86618; 87070; 87186; 87205; 87581; 87899; 93010; 94667; 94668; 99223; 99232; 99233; 99239; J1720; J1940; J1941; J2543; J3475; J3480; J3490; J7512; J7613; J7620

== ENCOUNTER 2022-02-05 09:30 | Outpatient (CLI) | payer OTHER, SELFPAY ==
[2022-02-05 10:09] LABS: Anion Gap 12.8 mmol/L (3-11); BUN 22 mg/dL (7-18); CO2 25.2 mmol/L (21.0-32.0); CREATININE 1.5 mg/dL (0.70-1.30); Calcium 8.4 mg/dL (8.5-10.1); Chloride 101 mmol/L (98-107); Estimated GFR 48.25 (mL/min/1.73m2); Glucose 108 mg/dL (74-106); Potassium 4.2 mmol/L (3.5-5.1); Sodium 139 mmol/L (136-145)
== END 2022-02-05 09:31 | disposition home or self-care (01) ==
PROVIDERS: Visit Provider Internal Medicine
DX: E83.42 Hypomagnesemia (principal); I50.9 Heart failure, unspecified; Z51.81 Encounter for therapeutic drug level monitoring; E83.51 Hypocalcemia
CPT/HCPCS: 36415; 80048; 82330; 83735

== ENCOUNTER 2022-12-27 16:46 | Outpatient (CLI) | payer OTHER, SELFPAY ==
[2022-12-27 12:44] LABS: Abs Immature Grans 0.07 10^3/uL (0.0-0.06); Absolute Basophil Count 0.11 10^3/uL (0.0-0.2); Absolute Eosinophil Count 0.71 10^3/uL (0.0-0.7); Absolute Lymphocyte Count 1.15 10^3/uL (1.2-3.4); Absolute Monocyte Count 1.03 10^3/uL (0.1-0.8); Absolute Neutrophil Count 6.78 10^3/uL (1.2-6.7); Basophils % 1.1; Eosinophils % 7.2; HCT 47.2 % (40.0-50.0); HGB 15.4 g/dL (13.5-17.5); Immature Grans % 0.7; Lymphocytes % 11.7; MCH 31.4 pg (27.0-33.0); MCHC 32.6 % (32.0-36.0); MCV 96 fL (80-95); MPV 10.2 fL (8.0-11.0); Monocytes % 10.5; Neutrophils % 68.8; Platelet Count 272 10^3/uL (130-400); RDW 13.6 % (11.8-14.1); RDW-SD 48.5 fL; WBC 9.85 10^3/uL (4.4-10.8)
[2022-12-27 13:32] LABS: ALT 47 U/L (16-63); AST 46 U/L (15-37); Albumin 3.6 g/dL (3.4-5.0); Alkaline Phosphatase 202 U/L (46-116); Anion Gap 11.5 mmol/L (3-11); BUN 22 mg/dL (7-18); Bilirubin, Total 0.5 mg/dL (0.2-1.0); CO2 23.5 mmol/L (21.0-32.0); CREATININE 1.5 mg/dL (0.70-1.30); Calcium 9.3 mg/dL (8.5-10.1); Chloride 102 mmol/L (98-107); Estimated GFR 47.95 (mL/min/1.73m2); Ferritin 187 ng/mL (26-388); Glucose 121 mg/dL (74-106); Potassium 4.4 mmol/L (3.5-5.1); Sodium 137 mmol/L (136-145); Total Protein 7.9 g/dL (6.4-8.2)
[2022-12-27 13:39] LABS: Iron 77 ug/dL (65-175); Total Iron Binding Capacity 297 ug/dL (250-450); Transferrin Sat 26 % (20-55)
== END 2022-12-27 16:47 | disposition home or self-care (01) ==
LOC: LBO 16:50
PROVIDERS: Visit Provider Internal Medicine Hematology & Oncology
DX: D50.0 Iron deficiency anemia secondary to blood loss (chronic) (principal)
CPT/HCPCS: 36415; 80053; 82728; 83540; 83550; 85025

== ENCOUNTER 2024-12-11 03:38 | Outpatient (CLI) | payer OTHER, SELFPAY ==
[2024-12-11 12:36] LABS: Abs Immature Grans 0.09 10^3/uL (0.0-0.06); HCT 44.1 % (40.0-50.0); HGB 14.5 g/dL (13.5-17.5); Immature Grans % 1.0 %; MCH 34.0 pg (27.0-33.0); MCHC 32.9 % (32.0-36.0); MCV 103 fL (80-95); MPV 10.5 fL (8.0-11.0); Platelet Count 223 10^3/uL (130-400); RBC 4.27 10^6/uL (4.36-5.78); RDW 14.6 % (11.8-14.1); RDW-SD 55.8 fL; WBC 9.10 10^3/uL (4.4-10.8)
[2024-12-11 13:03] LABS: Iron 89 ug/dL (65-175); Total Iron Binding Capacity 328 ug/dL (250-450); Transferrin Sat 27 % (20-55)
[2024-12-11 13:25] LABS: ALT 50 U/L (16-63); AST 53 U/L (15-37); Albumin 3.3 g/dL (3.4-5.0); Alkaline Phosphatase 186 U/L (46-116); Anion Gap 14.2 mmol/L (3-11); BUN 17 mg/dL (7-18); Bilirubin, Total 0.5 mg/dL (0.2-1.0); CO2 20.8 mmol/L (21.0-32.0); Calcium 8.5 mg/dL (8.5-10.1); Chloride 104 mmol/L (98-107); Estimated GFR 56.23 (mL/min/1.73m2); Ferritin 125 ng/mL (26-388); Glucose 142 mg/dL (74-106); Potassium 4.4 mmol/L (3.5-5.1); Sodium 139 mmol/L (136-145); TSH 2.91 uIU/mL (0.36-3.74); Total Protein 7.3 g/dL (6.4-8.2); Vitamin B12 403 pg/mL (193-986)
[2024-12-11 13:28] LABS: Folate > 20.0 ng/mL (8.6-20.0)
== END 2024-12-11 03:39 | disposition home or self-care (01) ==
PROVIDERS: Visit Provider Internal Medicine Hematology & Oncology
DX: D50.0 Iron deficiency anemia secondary to blood loss (chronic) (principal); D64.9 Anemia, unspecified
CPT/HCPCS: 36415; 80053; 82607; 82728; 82746; 83540; 83550; 84443; 85025